=== PATIENT | male | born 1990 | race Caucasian/White ===

== ENCOUNTER → 2018-01-21 07:34 | Outpatient (CLI) | payer MEDICAID, SELFPAY ==
[2018-01-21 07:51] LABS: Hematocrit 43.7 % (40-54); Hemoglobin 15.5 g/dl (13.0-16.5); Mean Corp Hgb Conc 35.5 g/gl (32-36); Mean Corpuscular Hgb 30.2 pg (27.0-32.0); Mean Corpuscular Volume 85.2 fL (80-94); Platelet Count 184 K/mm3 (150-450); RBC Distribution Width CV 13.1 % (11.6-14.6); RBC Distribution Width SD 40.2 fl (35.1-43.9); Red Blood Count 5.13 M/mm3 (4.6-6.2); White Blood Count 5.2 K/mm3 (4.4-11.0)
[2018-01-21 07:53] LABS: Scan Indicated on CBC? Y/N NO
[2018-01-21 08:18] LABS: AST(SGOT) 21 U/L (15-37); Alanine Aminotransfer ALT/SGPT 25 U/L (16-61); Albumin, Serum 3.8 g/dL (3.2-5.0); Alkaline Phosphatase 101 U/L (45-117); Anion Gap 7 (5-15); BUN 31 mg/dL (7-18); BUN/Creat Ratio 14.6 RATIO (10-20); Chloride 109 mmol/L (98-107); Creatinine, Serum 2.12 mg/dL (0.70-1.30); EST Glomerular Filtration Rate 40 mL/min (>60); Est Glom Filt Rate - Afr Amer 48 mL/min (>60); Globulin 3.9 g/dL (2.2-4.2); Glucose 88 mg/dL (74-106); Potassium 4.3 mmol/L (3.5-5.1); Protein, Total 7.7 g/dL (6.4-8.2); Sodium Level 141 mmol/L (136-145)
== END ==
PROVIDERS: Family Provider Family Medicine; PCP Family Medicine; Visit Provider Psychiatry & Neurology Child & Adolescent Psychiatry
DX: F84.0 Autistic disorder (principal); F31.9 Bipolar disorder, unspecified
CPT/HCPCS: 36415; 80053; 85027

== ENCOUNTER → 2018-01-27 16:36 | Outpatient (CLI) | payer MEDICAID, SELFPAY ==
[2018-01-27 17:22] LABS: Hematocrit 44.4 % (40-54); Hemoglobin 15.2 g/dl (13.0-16.5); Mean Corp Hgb Conc 34.2 g/gl (32-36); Mean Corpuscular Hgb 29.5 pg (27.0-32.0); Mean Platelet Vol. 9.3 fl (6.2-12.0); Platelet Count 193 K/mm3 (150-450); RBC Distribution Width CV 12.8 % (11.6-14.6); RBC Distribution Width SD 40.2 fl (35.1-43.9); Red Blood Count 5.16 M/mm3 (4.6-6.2); White Blood Count 7.2 K/mm3 (4.4-11.0)
[2018-01-27 17:28] LABS: Scan Indicated on CBC? Y/N NO
[2018-01-27 17:36] LABS: Protein, Urine (Random) 62.4 mg/dL (<11.9); Protein:Creat Ratio 923 mg/g CRE (0-200)
[2018-01-27 17:51] LABS: Albumin, Serum 3.8 g/dL (3.2-5.0); BUN 27 mg/dL (7-18); BUN/Creat Ratio 13.7 RATIO (10-20); Calcium,Total 9.3 mg/dL (8.5-10.1); Chloride 105 mmol/L (98-107); Creatinine, Serum 1.97 mg/dL (0.70-1.30); EST Glomerular Filtration Rate 43 mL/min (>60); Est Glom Filt Rate - Afr Amer 53 mL/min (>60); Glucose 85 mg/dL (74-106); Phosphorus 3.7 mg/dL (2.5-4.9); Potassium 4.2 mmol/L (3.5-5.1); Sodium Level 139 mmol/L (136-145)
[2018-01-28 09:27] LABS: PTHIN 42.9 pg/mL (18.4-80.1)
[2018-01-28 09:36] LABS: Vitamin D,25 Hydroxy 44.3 ng/mL (29.95-100.01)
== END ==
PROVIDERS: Family Provider Family Medicine; PCP Family Medicine; Visit Provider Internal Medicine Nephrology
DX: N18.3 Chronic kidney disease, stage 3 (moderate) (principal)
CPT/HCPCS: 36415; 80069; 82306; 82570; 83970; 84156; 85027

== ENCOUNTER → 2018-02-26 14:57 | Outpatient (CLI) | payer MEDICAID, SELFPAY | LOC: MFPLAB 14:58 → LABSPEC 14:58 | PROVIDERS: Family Provider Family Medicine; PCP Family Medicine; Visit Provider Family Medicine | DX: R46.89 Other symptoms and signs involving appearance and behavior (principal) | CPT/HCPCS: 87077; 87086; 87088; 87186 ==

== ENCOUNTER → 2018-07-27 07:59 | Outpatient (CLI) | payer MEDICAID, SELFPAY ==
[2018-07-27 08:29] LABS: Hemoglobin 15.3 g/dl (13.0-16.5); Mean Corp Hgb Conc 34.8 g/gl (32-36); Mean Corpuscular Hgb 29.7 pg (27.0-32.0); Mean Corpuscular Volume 85.4 fL (80-94); Mean Platelet Vol. 8.7 fl (6.2-12.0); Platelet Count 210 K/mm3 (150-450); RBC Distribution Width CV 12.2 % (11.6-14.6); RBC Distribution Width SD 37.7 fl (35.1-43.9); Red Blood Count 5.15 M/mm3 (4.6-6.2); White Blood Count 6.3 K/mm3 (4.4-11.0)
[2018-07-27 08:34] LABS: Scan Indicated on CBC? Y/N NO
[2018-07-27 09:01] LABS: Albumin, Serum 3.3 g/dL (3.2-5.0); BUN 24 mg/dL (7-18); BUN/Creat Ratio 12.2 RATIO (10-20); Calcium,Total 9.1 mg/dL (8.5-10.1); Chloride 107 mmol/L (98-107); Creatinine, Serum 1.96 mg/dL (0.70-1.30); EST Glomerular Filtration Rate 44 mL/min (>60); Est Glom Filt Rate - Afr Amer 53 mL/min (>60); Glucose 102 mg/dL (74-106); Phosphorus 2.8 mg/dL (2.5-4.9); Potassium 4.4 mmol/L (3.5-5.1); Sodium Level 144 mmol/L (136-145)
[2018-07-27 09:16] LABS: Microalbumin:Creatinine Ratio 512.5 mg/g CRE (<30 mg/g CRE)
[2018-07-27 09:19] LABS: PTHIN 65.2 pg/mL (18.4-80.1)
[2018-07-27 09:20] LABS: Vitamin D,25 Hydroxy 60.4 ng/mL (29.95-100.01)
== END ==
PROVIDERS: Family Provider Family Medicine; PCP Family Medicine; Visit Provider Internal Medicine Nephrology
DX: N18.3 Chronic kidney disease, stage 3 (moderate) (principal)
CPT/HCPCS: 36415; 80069; 82043; 82306; 82570; 83970; 85027

== ENCOUNTER 2018-11-18 14:43 | Emergency (ER) | payer MEDICAID, SELFPAY ==
[2018-11-18 14:57] VITALS: BP 75/50; PULSE 110; RESP 18; TEMP 36.1; O2SAT 96; BMI 32.1
--- NOTE | 2018-11-18 15:40 | EKG12_ITS ---
Test Reason : HYPOTENSION Blood Pressure : / mmHG Vent. Rate : 096 BPM Atrial Rate : 096 BPM P-R Int : 166 ms QRS Dur : 096 ms QT Int : 342 ms P-R-T Axes : 055 069 044 degrees QTc Int : 432 ms Normal sinus rhythm Poor R wave progression Confirmed by SALMA ANDREWS, HARDIK ([id number]), purchasing expeditor ED METZ ([id number]) on 11/20/2018 2:29:16 PM Referred By: ЮЛИЯ Confirmed By:HARDIK MARSH MD
--- NOTE | 2018-11-18 15:41 | ED.VISSUMM ---
- ER Visit Summary Date of Service: 11/18/18 Chief Complaint: Vomiting History of Present Illness: The patient is a 28 M presenting with nausea and vomiting. He states that this started approximately 2 hours ago. 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 He states he had 3 episodes of vomiting. He had no blood in his emesis. He feels improved now. EMS was called. His blood pressure was low. He denies lightheadedness or dizziness. Denies abdominal pain. Denies chest pain or shortness of breath. Denies fever. Denies diarrhea. Denies other complaints. Physical Examination: Blood pressure 75/50, temperature 97, heart rate 110, respiratory rate 18, pulse ox 96% on room air. Alert no acute distress. HEENT exam dry mucous membranes. Neck is supple. Lungs are clear and equal bilaterally. Heart is regular and tachycardic Abdomen is soft nontender nondistended. No guarding or rebound Extremities are unremarkable. Skin is warm and dry. No focal neurologic deficit. Remainder of exam is unremarkable. Emergency Department Course and Treatment: Patient was given IV fluids, Zofran. CBC shows white count 13.9. Chemistries show glucose 119, BUN 38, creatinine 2.35. He has a history of chronic kidney disease. Urinalysis unremarkable. Lactic acid is normal. Chest x-ray showed no acute process. EKG is sinus rhythm rate of 96 unchanged from previous. Patient had one episode of vomiting in the ED. He was given a dose of Phenergan with improvement. He is now tolerating p.o. in the emergency department. His repeat blood pressure is 138/94. Patient and family are comfortable with discharge home. Advised return to ED if worsening complaints. Advised to follow-up with primary care physician. Disposition: Discharge home Impression: Nausea vomiting This note was generated with [employer] dictation software. It may contain incorrect words, spelling, and punctuation that were not noted in review of the chart prior to signing ED Disposition - Plan for ED Patient: Chief Complaint: Hypotension Instructions: ED Nausea Vomiting Prescriptions: Ondansetron [Zofran Odt] 4 mg PO Q8H PRN PRN #10 tablet PRN Reason: Nausea Referrals: Floyd Greer MD [Primary Care Provider] -
[2018-11-18 15:45] VITALS: BP 99/64; PULSE 107; RESP 22; O2SAT 97
--- NOTE | 2018-11-18 15:46 | RAD_ITS ---
STUDY: X-RAY CHEST REASON FOR EXAM: Male, 28 years old. Shortness of breath. Nausea and vomiting. TECHNIQUE: Single AP portable view of the chest. COMPARISON: Comparison is made with prior study dated November 11, 2015. FINDINGS: EKG electrodes are seen. The lungs are clear and expanded. There is no demonstrated pleural abnormality. Normal size heart. Normal mediastinum and peter. Normal visualized pulmonary arteries. Normal visualized aortic arch and descending thoracic aorta. There is a mild dextroscoliosis of the thoracic spine. Normal visualized ribs, clavicles, and shoulders. There is no demonstrated abnormality of the visualized soft tissue structures of the upper abdomen. RAD/Chest 1 View (Portable) IMPRESSION: Normal x-ray examination of the chest. Electronically Signed: Alen Figueroa MD at 15:59 EST Tel [phone], Service support ,
[2018-11-18 16:01] VITALS: BP 115/76; PULSE 103; RESP 18; O2SAT 96
[2018-11-18] MEDS: Ondansetron 4 MG/2 ML Vial IV (16:07)
[2018-11-18] MEDS: 0.9% Normal Saline 1,000 ML 1000 ML IV ×2 (16:07→16:48)
[2018-11-18 16:33] LABS: Absolute Lymphocyte Count 0.74 X10^3/ul (0.83-4.51); Absolute Neutrophil Count 12.7 X10^3/uL (2.0-7.7); Basophil# 0.02 X10^3/uL; Basophil% 0.1 % (0-1); Eosinophil# 0.09 X10^3/uL; Eosinophils% 0.6 % (0-5); Hematocrit 47.9 % (40-54); Hemoglobin 16.9 g/dl (13.0-16.5); Lymphocyte # 0.74 X10^3/ul (4.0); Lymphocyte % 5.3 % (19-41); Mean Corp Hgb Conc 35.3 g/gl (32-36); Mean Corpuscular Hgb 29.8 pg (27.0-32.0); Mean Corpuscular Volume 84.5 fL (80-94); Mean Platelet Vol. 8.9 fl (6.2-12.0); Monocyte# 0.32 X10^3/uL; Monocyte% 2.3 % (0-10); Neutrophil # 12.67 X10^3/uL (2.7-7.7); Neutrophil % 91.6 % (47-70); Platelet Count 159 K/mm3 (150-450); RBC Distribution Width CV 12.6 % (11.6-14.6); RBC Distribution Width SD 39.1 fl (35.1-43.9); Red Blood Count 5.67 M/mm3 (4.6-6.2); White Blood Count 13.9 K/mm3 (4.4-11.0)
[2018-11-18 16:38] LABS: AST(SGOT) 28 U/L (15-37); Alanine Aminotransfer ALT/SGPT 48 U/L (16-61); Albumin, Serum 3.8 g/dL (3.2-5.0); Alkaline Phosphatase 125 U/L (45-117); Anion Gap 10 (5-15); BUN 38 mg/dL (7-18); BUN/Creat Ratio 16.2 RATIO (10-20); Calcium,Total 8.9 mg/dL (8.5-10.1); Chloride 105 mmol/L (98-107); Creatinine, Serum 2.35 mg/dL (0.70-1.30); EST Glomerular Filtration Rate 35 mL/min (>60); Est Glom Filt Rate - Afr Amer 43 mL/min (>60); Estimated Creatinine Clearance 51.37 ml/min; Globulin 3.7 g/dL (2.2-4.2); Glucose 119 mg/dL (74-106); Protein, Total 7.5 g/dL (6.4-8.2); Sodium Level 139 mmol/L (136-145)
[2018-11-18 16:46] LABS: Lactic Acid 0.9 mmol/L (0.4-2.0)
[2018-11-18 16:47] LABS: POSITIVE COUNT NO; POSITIVE DIFFERENTIAL NO; POSITIVE MORPHOLOGY NO
[2018-11-18 17:49] VITALS: BP 138/94; PULSE 102; RESP 16; O2SAT 97
[2018-11-18 18:00] LABS: Bacteria 0 SEEN /hpf (None Seen); Mucous, Urine 0 SEEN /hpf (<or=2+); Red Blood Cells-Urine 0 SEEN /hpf (0-5); Squamous Epithelial Cells - UA 0 SEEN /hpf (0-5); White Blood Cells 0 SEEN /hpf (0-5)
[2018-11-18 18:09] LABS: Glucose, Dipstick Normal (Normal); Ketone-Dipstick Negative (Negative); Leukocyte Esterase-Dipstick Negative /ul (Negative); Nitrite-Dipstick Negative (Negative); Occult Blood-Urine Negative /ul (Negative); Protein-Dipstick 100 mg/dl (Negative); Specific Gravity, Urine 1.015 (1.002-1.030); Urine Bilirubin Dipstick Negative (Negative); Urine Clarity Clear (Clear); Urine Urobilinogen Normal (Normal)
[2018-11-18 18:25] LABS: Color, Urine YELLOW (Yellow)
[2018-11-18] MEDS: 0.9% Normal Saline 1,000 ML 999 ML IV (19:10)
[2018-11-18] MEDS: proMETHazine 25 MG/ML Syringe 6.25 MG IV (19:19)
--- NOTE | 2018-11-18 21:10 | ED.DEP ---
ED Disposition - Plan for ED Patient: Chief Complaint: Hypotension Instructions: ED Nausea Vomiting Prescriptions: Ondansetron [Zofran Odt] 4 mg PO Q8H PRN PRN #10 tablet PRN Reason: Nausea Referrals: Floyd Greer MD [Primary Care Provider] -
[2018-11-18 21:31] VITALS: BP 143/90; PULSE 108; RESP 20; O2SAT 97
== END 2018-11-18 21:32 | disposition home or self-care (01) ==
PROVIDERS: Emergency Provider Emergency Medicine; Family Provider Family Medicine; PCP Family Medicine
DX: R11.2 Nausea with vomiting, unspecified (principal); N18.9 Chronic kidney disease, unspecified; F84.0 Autistic disorder; Z79.899 Other long term (current) drug therapy
CPT/HCPCS: 71045; 80053; 81001; 83605; 85025; 93005; 96361; 96374; 96375; 99285; J2405

== ENCOUNTER 2019-01-08 07:53 | Outpatient (CLI) | payer MEDICAID, SELFPAY ==
[2019-01-08 08:14] LABS: Hematocrit 45.7 % (40-54); Hemoglobin 16.1 g/dl (13.0-16.5); Mean Corp Hgb Conc 35.2 g/gl (32-36); Mean Corpuscular Volume 85.1 fL (80-94); Mean Platelet Vol. 9.1 fl (6.2-12.0); Platelet Count 170 K/mm3 (150-450); RBC Distribution Width CV 13.2 % (11.6-14.6); RBC Distribution Width SD 40.6 fl (35.1-43.9); Red Blood Count 5.37 M/mm3 (4.6-6.2); White Blood Count 6.3 K/mm3 (4.4-11.0)
[2019-01-08 08:15] LABS: Scan Indicated on CBC? Y/N NO
[2019-01-08 08:59] LABS: AST(SGOT) 40 U/L (15-37); Alanine Aminotransfer ALT/SGPT 60 U/L (16-61); Albumin, Serum 3.6 g/dL (3.2-5.0); Alkaline Phosphatase 138 U/L (45-117); Anion Gap 9 (5-15); BUN 36 mg/dL (7-18); BUN/Creat Ratio 18.2 RATIO (10-20); Calcium,Total 8.8 mg/dL (8.5-10.1); Chloride 109 mmol/L (98-107); Cholesterol 139 mg/dL (200); Creatinine, Serum 1.98 mg/dL (0.70-1.30); EST Glomerular Filtration Rate 43 mL/min (>60); Est Glom Filt Rate - Afr Amer 52 mL/min (>60); Globulin 3.5 g/dL (2.2-4.2); Glucose 108 mg/dL (74-106); High Density Lipoprotein 43 mg/dL; Potassium 4.4 mmol/L (3.5-5.1); Protein, Total 7.1 g/dL (6.4-8.2); Sodium Level 141 mmol/L (136-145); Thyroid Stim Hormone (TSH) 2.08 uIU/mL (0.358-3.74); Triglycerides 178 mg/dL; Very Low Density Lipoprotein 36 mg/dL (5-40)
== END 2019-01-08 19:00 ==
PROVIDERS: Family Provider Family Medicine; PCP Family Medicine; Referring Provider Psychiatry & Neurology Child & Adolescent Psychiatry; Visit Provider Psychiatry & Neurology Child & Adolescent Psychiatry
DX: F84.0 Autistic disorder (principal); Z51.81 Encounter for therapeutic drug level monitoring
CPT/HCPCS: 36415; 80053; 80061; 84443; 85027

== ENCOUNTER → 2019-07-08 | Outpatient (CLI) | payer MEDICAID, SELFPAY ==
[2019-07-08 09:58] LABS: Hematocrit 44.9 % (40-54); Hemoglobin 15.4 g/dL (13.0-16.5); Mean Corp Hgb Conc 34.3 g/dL (32-36); Mean Corpuscular Hgb 29.7 pg (27.0-32.0); Mean Corpuscular Volume 86.5 fL (80-94); Mean Platelet Vol. 8.9 fl (6.2-12.0); Platelet Count 173 K/mm3 (150-450); RBC Distribution Width CV 12.8 % (11.6-14.6); RBC Distribution Width SD 39.8 fl (35.1-43.9); Red Blood Count 5.19 M/mm3 (4.6-6.2); White Blood Count 5.7 K/mm3 (4.4-11.0)
[2019-07-08 10:12] LABS: Albumin, Serum 3.6 g/dL (3.2-5.0); BUN 35 mg/dL (7-18); BUN/Creat Ratio 18.1 RATIO (10-20); Calcium,Total 9.5 mg/dL (8.5-10.1); Chloride 109 mmol/L (98-107); Creatinine, Serum 1.93 mg/dL (0.70-1.30); EST Glomerular Filtration Rate 44 mL/min (>60); Est Glom Filt Rate - Afr Amer 53 mL/min (>60); Glucose 96 mg/dL (74-106); Phosphorus 2.9 mg/dL (2.5-4.9); Potassium 4.5 mmol/L (3.5-5.1); Sodium Level 142 mmol/L (136-145)
[2019-07-08 10:24] LABS: PTHIN 43.3 pg/mL (18.4-80.1); Vitamin D,25 Hydroxy 37.7 ng/mL (29.95-100.01)
[2019-07-08 10:30] LABS: Protein, Urine (Random) 81.4 mg/dL (<11.9); Protein:Creat Ratio 1148 mg/g CRE (0-200)
== END | disposition home or self-care (01) ==
PROVIDERS: Family Provider Family Medicine; PCP Family Medicine; Referring Provider Internal Medicine Nephrology; Visit Provider Internal Medicine Nephrology
DX: N18.3 Chronic kidney disease, stage 3 (moderate) (principal); R80.9 Proteinuria, unspecified; N25.81 Secondary hyperparathyroidism of renal origin
CPT/HCPCS: 36415; 80069; 82306; 82570; 83970; 84156; 85027

== ENCOUNTER → 2019-10-13 11:49 | Outpatient (CLI) | payer MEDICAID, SELFPAY ==
[2019-10-13 14:37] LABS: Hemoglobin A1c 5.4 % (4.2-6.3)
== END ==
PROVIDERS: Family Provider Family Medicine; PCP Family Medicine; Referring Provider Family Medicine; Visit Provider Family Medicine
DX: R73.09 Other abnormal glucose (principal)
CPT/HCPCS: 36415; 83036

== ENCOUNTER → 2019-12-13 07:53 | Outpatient (CLI) | payer MEDICAID, SELFPAY ==
[2019-12-13 09:10] LABS: Hematocrit 45.8 % (40-54); Hemoglobin 15.6 g/dL (13.0-16.5); Mean Corp Hgb Conc 34.1 g/dL (32-36); Mean Corpuscular Hgb 29.8 pg (27.0-32.0); Mean Corpuscular Volume 87.6 fL (80-94); Mean Platelet Vol. 9.1 fl (6.2-12.0); Platelet Count 170 K/mm3 (150-450); RBC Distribution Width CV 12.7 % (11.6-14.6); RBC Distribution Width SD 40.7 fl (35.1-43.9); Red Blood Count 5.23 M/mm3 (4.6-6.2); White Blood Count 6.1 K/mm3 (4.4-11.0)
[2019-12-13 09:57] LABS: ALB/GLOB Ratio 0.9 RATIO (0.9-2.4); AST(SGOT) 31 U/L (15-37); Alanine Aminotransfer ALT/SGPT 46 U/L (16-61); Albumin, Serum 3.4 g/dL (3.2-5.0); Alkaline Phosphatase 136 U/L (45-117); Anion Gap 5 (5-15); BUN 31 mg/dL (7-18); BUN/Creat Ratio 15.1 RATIO (10-20); Calcium,Total 8.9 mg/dL (8.5-10.1); Chloride 111 mmol/L (98-107); Cholesterol 137 mg/dL (200); Creatinine, Serum 2.05 mg/dL (0.70-1.30); EST Glomerular Filtration Rate 41 mL/min (>60); Est Glom Filt Rate - Afr Amer 50 mL/min (>60); Globulin 3.6 g/dL (2.2-4.2); Glucose 115 mg/dL (74-106); High Density Lipoprotein 39 mg/dL; Potassium 3.9 mmol/L (3.5-5.1); Sodium Level 139 mmol/L (136-145); Thyroid Stim Hormone (TSH) 2.59 uIU/mL (0.358-3.74); Triglycerides 202 mg/dL; Very Low Density Lipoprotein 40 mg/dL (5-40)
[2019-12-16 09:14] LABS: Lamotrigine (Lamictal) Level 2.6 ug/mL (2.0-20.0)
== END ==
PROVIDERS: PCP Family Medicine; Referring Provider Psychiatry & Neurology Child & Adolescent Psychiatry; Visit Provider Psychiatry & Neurology Child & Adolescent Psychiatry
DX: Z79.899 Other long term (current) drug therapy (principal)
CPT/HCPCS: 36415; 80053; 80061; 82542; 84443; 85027

== ENCOUNTER → 2020-01-06 08:44 | Outpatient (CLI) | payer MEDICAID, SELFPAY ==
[2020-01-06 10:05] LABS: Hemoglobin 15.4 g/dL (13.0-16.5); Mean Corp Hgb Conc 34.2 g/dL (32-36); Mean Corpuscular Hgb 29.9 pg (27.0-32.0); Mean Corpuscular Volume 87.4 fL (80-94); Mean Platelet Vol. 9.2 fl (6.2-12.0); Platelet Count 184 K/mm3 (150-450); RBC Distribution Width CV 12.5 % (11.6-14.6); RBC Distribution Width SD 39.9 fl (35.1-43.9); Red Blood Count 5.15 M/mm3 (4.6-6.2); White Blood Count 5.8 K/mm3 (4.4-11.0)
[2020-01-06 10:17] LABS: Albumin, Serum 3.6 g/dL (3.2-5.0); BUN 38 mg/dL (7-18); BUN/Creat Ratio 17.3 RATIO (10-20); Calcium,Total 9.6 mg/dL (8.5-10.1); Chloride 109 mmol/L (98-107); EST Glomerular Filtration Rate 38 mL/min (>60); Est Glom Filt Rate - Afr Amer 46 mL/min (>60); Glucose 141 mg/dL (74-106); Phosphorus 2.6 mg/dL (2.5-4.9); Potassium 3.9 mmol/L (3.5-5.1); Sodium Level 139 mmol/L (136-145)
[2020-01-06 10:18] LABS: Protein, Urine (Random) 86.3 mg/dL (<11.9); Protein:Creat Ratio 894 mg/g CRE (0-200)
[2020-01-06 10:35] LABS: Vitamin D,25 Hydroxy 51.8 ng/mL (29.95-100.01)
== END ==
PROVIDERS: PCP Family Medicine; Referring Provider Family Medicine; Visit Provider Internal Medicine Nephrology
DX: N18.3 Chronic kidney disease, stage 3 (moderate) (principal); N25.81 Secondary hyperparathyroidism of renal origin; R80.9 Proteinuria, unspecified; D63.1 Anemia in chronic kidney disease
CPT/HCPCS: 36415; 80069; 82306; 82570; 84156; 85027

== ENCOUNTER → 2020-05-22 07:59 | Outpatient (CLI) | payer MEDICAID, SELFPAY ==
[2020-05-22 08:46] LABS: Hematocrit 45.8 % (40-54); Hemoglobin 15.2 g/dL (13.0-16.5); Mean Corp Hgb Conc 33.2 g/dL (32-36); Mean Corpuscular Hgb 29.3 pg (27.0-32.0); Mean Corpuscular Volume 88.4 fL (80-94); Mean Platelet Vol. 9.3 fl (6.2-12.0); Platelet Count 195 K/mm3 (150-450); RBC Distribution Width CV 12.5 % (11.6-14.6); RBC Distribution Width SD 40.6 fl (35.1-43.9); Red Blood Count 5.18 M/mm3 (4.6-6.2); White Blood Count 6.5 K/mm3 (4.4-11.0)
[2020-05-22 09:28] LABS: AST(SGOT) 28 U/L (15-37); Alanine Aminotransfer ALT/SGPT 39 U/L (16-61); Albumin, Serum 3.7 g/dL (3.2-5.0); Alkaline Phosphatase 137 U/L (45-117); Anion Gap 8 (5-15); BUN 28 mg/dL (7-18); BUN/Creat Ratio 13.1 RATIO (10-20); Chloride 109 mmol/L (98-107); Cholesterol 141 mg/dL (200); Creatinine, Serum 2.14 mg/dL (0.70-1.30); EST Glomerular Filtration Rate 39 mL/min (>60); Est Glom Filt Rate - Afr Amer 47 mL/min (>60); Globulin 3.8 g/dL (2.2-4.2); Glucose 104 mg/dL (74-106); High Density Lipoprotein 38 mg/dL; Potassium 4.3 mmol/L (3.5-5.1); Protein, Total 7.5 g/dL (6.4-8.2); Sodium Level 140 mmol/L (136-145); Thyroid Stim Hormone (TSH) 1.88 uIU/mL (0.358-3.74); Triglycerides 204 mg/dL; Very Low Density Lipoprotein 41 mg/dL (5-40)
[2020-05-25 18:20] LABS: Lamotrigine (Lamictal) Level 3.4 ug/mL (2.0-20.0)
== END ==
PROVIDERS: PCP Family Medicine; Referring Provider Psychiatry & Neurology Child & Adolescent Psychiatry; Visit Provider Psychiatry & Neurology Child & Adolescent Psychiatry
DX: Z79.899 Other long term (current) drug therapy (principal)
CPT/HCPCS: 36415; 80053; 80061; 82542; 84443; 85027

== ENCOUNTER → 2020-09-07 08:18 | Outpatient (CLI) | payer MEDICAID, SELFPAY ==
[2020-09-07 10:35] LABS: Protein, Urine (Random) 53.5 mg/dL (<11.9); Protein:Creat Ratio 616 mg/g CRE (0-200)
[2020-09-07 10:41] LABS: Anion Gap 7 (5-15); BUN 29 mg/dL (7-18); BUN/Creat Ratio 12.7 RATIO (10-20); Calcium,Total 9.8 mg/dL (8.5-10.1); Chloride 108 mmol/L (98-107); Creatinine, Serum 2.28 mg/dL (0.70-1.30); EST Glomerular Filtration Rate 36 mL/min (>60); Est Glom Filt Rate - Afr Amer 44 mL/min (>60); Glucose 95 mg/dL (74-106); Potassium 4.2 mmol/L (3.5-5.1); Sodium Level 139 mmol/L (136-145)
== END ==
PROVIDERS: PCP Family Medicine; Referring Provider Internal Medicine Nephrology; Visit Provider Internal Medicine Nephrology
DX: N18.30 Chronic kidney disease, stage 3 unspecified (principal)
CPT/HCPCS: 36415; 80048; 82570; 84156

== ENCOUNTER 2021-03-14 16:34 | Emergency (ER) | payer MEDICAID, SELFPAY ==
[2021-03-14 16:34] VITALS: BP 141/89; PULSE 107; RESP 16; TEMP 36.2; O2SAT 95; BMI 34.7
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
[2021-03-14 17:17] LABS: Absolute Lymphocyte Count 0.74 X10^3/uL (0.83-4.51); Absolute Neutrophil Count 9.8 X10^3/uL (2.0-7.7); Basophil# 0.01 X10^3/uL; Basophil% 0.1 % (0-1); Hematocrit 43.9 % (40-54); Lymphocyte # 0.74 X10^3/ul (0.83-4.51); Lymphocyte % 6.6 % (19-41); Mean Corp Hgb Conc 34.2 g/dL (32-36); Mean Corpuscular Hgb 29.5 pg (27.0-32.0); Mean Corpuscular Volume 86.2 fL (80-94); Mean Platelet Vol. 9.2 fl (6.2-12.0); Monocyte% 4.5 % (0-10); NRBC Flagged by Analyzer 0 % (0-5); Neutrophil # 9.81 X10^3/uL (2.7-7.7); Neutrophil % 88.2 % (47-70); Platelet Count 212 K/mm3 (150-450); RBC Distribution Width CV 12.7 % (11.6-14.6); RBC Distribution Width SD 39.8 fl (35.1-43.9); Red Blood Count 5.09 M/mm3 (4.6-6.2); White Blood Count 11.1 K/mm3 (4.4-11.0)
[2021-03-14 17:32] LABS: Anion Gap 7 (5-15); BUN 46 mg/dL (7-18); BUN/Creat Ratio 21.7 RATIO (10-20); Calcium,Total 9.1 mg/dL (8.5-10.1); Chloride 109 mmol/L (98-107); Creatinine, Serum 2.12 mg/dL (0.70-1.30); EST Glomerular Filtration Rate 39 mL/min (>60); Est Glom Filt Rate - Afr Amer 47 mL/min (>60); Estimated Creatinine Clearance 59.24 ml/min; Glucose 140 mg/dL (74-106); Potassium 4.4 mmol/L (3.5-5.1); Sodium Level 138 mmol/L (136-145)
[2021-03-14 18:38] VITALS: BP 115/72; PULSE 87; RESP 22; O2SAT 96
[2021-03-14 19:42] LABS: Amphetamine Urine VISTA NEGATIVE (<1000 ng/mL); Barbiturate Urine VISTA NEGATIVE (< 200 ng/mL); Benzodiazepine Urine VISTA NEGATIVE (< 200 ng/mL); Cocaine Urine VISTA NEGATIVE (< 300 ng/mL); Ecstacy Urine VISTA POSITIVE (< 500 ng/mL); Methadone Urine VISTA NEGATIVE (< 300 ng/mL); PCP Urine VISTA NEGATIVE (< 25 ng/mL); THC Urine VISTA NEGATIVE (< 50 ng/mL); Vista UDS pH Range 6
--- NOTE | 2021-03-14 19:52 | ED.RN ---
[facility] PAG[facility], VICKI IS CREATIVE INTERN
[2021-03-14 22:00] VITALS: BP 120/77; PULSE 85; RESP 28; O2SAT 97
[2021-03-15] VITALS (12 sets, daily range): BP systolic 145–159; BP diastolic 80–88; PULSE 71–88; RESP 16–24; O2SAT 98–99
[2021-03-15] MEDS: RisperiDONE 1 MG Tablet PO (06:12)
--- NOTE | 2021-03-15 08:57 | ED.RN ---
Waiting to hear from family regarding plan for [facility] not heard from [facility]
[2021-03-15] MEDS: Oxybutynin 5 MG Tablet PO (09:23)
[2021-03-15] MEDS: fluvoxaMINE Maleate 50 MG Tablet 100 MG PO (09:23)
[2021-03-15] MEDS: buPROPion 75 MG Tablet PO (09:23)
[2021-03-15] MEDS: Cholecalciferol (VIT D3) 25 MCG TABLET (1,000 UNITS) 50 MCG PO (09:23)
--- NOTE | 2021-03-15 09:33 | NURSING ---
MANAGER MOLECULAR ON PHONE TRYING TO GET ON VIRTUAL APPOINTMENT W/ PT'S PSYCHIATRIST.
--- NOTE | 2021-03-15 12:44 | ED.RN ---
This rn called and talked with crises worker. worker states that guardianship papers were to be brought in to the ed today by 929. made crises aware that no paperwork has been received. Alexei making calls
--- NOTE | 2021-03-15 12:53 | ED.RN ---
This RN talks with Rocío from [facility]. Pt to have a a ua completed. If results are normal pt will be transferred home with increases safety measures, and medications.
[2021-03-15 13:10] LABS: Bacteria 0 SEEN /hpf (None Seen); Mucous, Urine 0 SEEN /hpf (<or=2+); Red Blood Cells-Urine 0 SEEN /hpf (0-5); Squamous Epithelial Cells - UA 0 SEEN /hpf (0-5)
[2021-03-15 13:14] LABS: Color, Urine Yellow (Yellow); Glucose, Dipstick Normal (Normal); Ketone-Dipstick Negative (Negative); Leukocyte Esterase-Dipstick 100 /ul (Negative); Nitrite-Dipstick Negative (Negative); Occult Blood-Urine 10 /ul (Negative); Protein-Dipstick 100 mg/dl (Negative); Specific Gravity, Urine 1.015 (1.002-1.030); Urine Bilirubin Dipstick Negative (Negative); Urine Clarity Sl. Cloudy (Clear); Urine Urobilinogen Normal (Normal)
[2021-03-15 13:21] LABS: White Blood Cells 5-10 SEEN /hpf (0-5)
--- NOTE | 2021-03-15 13:21 | ED.RN ---
Maribel Brito from [facility] [employer] is contact lens polisher for plan
--- NOTE | 2021-03-15 14:51 | ED.RN ---
Talked with Rocío from [facility] , Pt to be discharged home, director of [facility] developmental disabilities aware and has made a plan for pt return
== END 2021-03-15 14:52 | disposition home or self-care (01) ==
PROVIDERS: Emergency Medicine; Emergency Provider Emergency Medicine; PCP Family Medicine
DX: R45.851 Suicidal ideations (principal); F84.0 Autistic disorder; E66.01 Morbid (severe) obesity due to excess calories; Z68.34 Body mass index [BMI] 34.0-34.9, adult; Z79.899 Other long term (current) drug therapy
CPT/HCPCS: 36415; 80048; 80307; 81001; 82077; 85025; 99284

== ENCOUNTER → 2021-03-16 08:48 | Outpatient (CLI) | payer MEDICAID, SELFPAY ==
[2021-03-14 16:34] VITALS: BMI 34.7
[2021-03-16 11:13] LABS: Hematocrit 47.8 % (40-54); Hemoglobin 16.3 g/dL (13.0-16.5); Mean Corp Hgb Conc 34.1 g/dL (32-36); Mean Corpuscular Hgb 29.6 pg (27.0-32.0); Mean Corpuscular Volume 86.8 fL (80-94); Mean Platelet Vol. 9.2 fl (6.2-12.0); Platelet Count 210 K/mm3 (150-450); RBC Distribution Width CV 12.5 % (11.6-14.6); RBC Distribution Width SD 39.5 fl (35.1-43.9); Red Blood Count 5.51 M/mm3 (4.6-6.2); White Blood Count 10.2 K/mm3 (4.4-11.0)
[2021-03-16 11:29] LABS: Protein, Urine (Random) 132.1 mg/dL (<11.9); Protein:Creat Ratio 2039 mg/g CRE (0-200)
[2021-03-16 11:50] LABS: Albumin, Serum 3.7 g/dL (3.2-5.0); BUN 49 mg/dL (7-18); BUN/Creat Ratio 25.7 RATIO (10-20); Calcium,Total 8.7 mg/dL (8.5-10.1); Chloride 109 mmol/L (98-107); Creatinine, Serum 1.91 mg/dL (0.70-1.30); EST Glomerular Filtration Rate 44 mL/min (>60); Est Glom Filt Rate - Afr Amer 53 mL/min (>60); Glucose 126 mg/dL (74-106); Phosphorus 2.4 mg/dL (2.5-4.9); Potassium 4.1 mmol/L (3.5-5.1); Sodium Level 137 mmol/L (136-145)
[2021-03-16 11:52] LABS: Vitamin D,25 Hydroxy 55.5 ng/mL
== END ==
PROVIDERS: PCP Family Medicine; Referring Provider Psychiatry & Neurology Child & Adolescent Psychiatry; Visit Provider Internal Medicine Nephrology
DX: N18.32 Chronic kidney disease, stage 3b (principal); R80.9 Proteinuria, unspecified; N25.81 Secondary hyperparathyroidism of renal origin; D63.1 Anemia in chronic kidney disease
CPT/HCPCS: 36415; 80069; 82306; 82570; 83970; 84156; 85027

== ENCOUNTER → 2021-03-26 07:59 | Outpatient (CLI) | payer MEDICAID, SELFPAY ==
[2021-03-14 16:34] VITALS: BMI 34.7
[2021-03-26 09:19] LABS: Hemoglobin A1c 5.1 % (3.8-5.6)
[2021-03-26 09:39] LABS: ALB/GLOB Ratio 1.1 RATIO (0.9-2.4); AST(SGOT) 18 U/L (15-37); Alanine Aminotransfer ALT/SGPT 27 U/L (16-61); Albumin, Serum 3.6 g/dL (3.2-5.0); Alkaline Phosphatase 154 U/L (45-117); Anion Gap 8 (5-15); BUN 40 mg/dL (7-18); BUN/Creat Ratio 19.9 RATIO (10-20); Calcium,Total 9.3 mg/dL (8.5-10.1); Chloride 109 mmol/L (98-107); Cholesterol 135 mg/dL (200); Creatinine, Serum 2.01 mg/dL (0.70-1.30); EST Glomerular Filtration Rate 42 mL/min (>60); Est Glom Filt Rate - Afr Amer 50 mL/min (>60); Globulin 3.4 g/dL (2.2-4.2); Glucose 94 mg/dL (74-106); High Density Lipoprotein 67 mg/dL; Sodium Level 139 mmol/L (136-145); Triglycerides 50 mg/dL; Very Low Density Lipoprotein 10 mg/dL (5-40)
[2021-03-28 16:45] LABS: Lamotrigine (Lamictal) Level 4.3 ug/mL (2.0-20.0)
== END ==
PROVIDERS: PCP Family Medicine; Referring Provider Psychiatry & Neurology Child & Adolescent Psychiatry; Visit Provider Psychiatry & Neurology Child & Adolescent Psychiatry
DX: Z79.899 Other long term (current) drug therapy (principal)
CPT/HCPCS: 36415; 80053; 80061; 82542; 83036

== ENCOUNTER → 2021-03-29 09:14 | Outpatient (CLI) | payer MEDICAID, SELFPAY ==
[2021-03-14 16:34] VITALS: BMI 34.7
--- NOTE | 2021-03-29 09:21 | EKG12_ITS ---
Test Reason : Blood Pressure : / mmHG Vent. Rate : 067 BPM Atrial Rate : 067 BPM P-R Int : 140 ms QRS Dur : 092 ms QT Int : 366 ms P-R-T Axes : 037 080 055 degrees QTc Int : 386 ms Normal sinus rhythm Normal ECG Confirmed by SALMA ANDREWS, HARDIK ([id number]), food expeditor MANDI BEAULIEU ([id number]) on 03/30/2021 10:40:16 AM Referred By: Tegan Jarrell Confirmed By:HARDIK MARSH MD
== END ==
PROVIDERS: PCP Family Medicine; Referring Provider Psychiatry & Neurology Child & Adolescent Psychiatry; Visit Provider Psychiatry & Neurology Child & Adolescent Psychiatry
DX: Z79.899 Other long term (current) drug therapy (principal)
CPT/HCPCS: 93005

== ENCOUNTER → 2021-06-19 17:04 | Outpatient (CLI) | payer MEDICARE, MEDICAID, SELFPAY ==
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
== END ==
PROVIDERS: PCP Family Medicine; Referring Provider Family Medicine; Visit Provider Family Medicine
DX: S69.92XA Unspecified injury of left wrist, hand and finger(s), initial encounter (principal)
CPT/HCPCS: 73130

== ENCOUNTER → 2021-09-18 15:27 | Outpatient (CLI) | payer MEDICARE, MEDICAID, SELFPAY ==
[2021-09-18 16:08] LABS: Hematocrit 40.5 % (40-54); Hemoglobin 14.1 g/dL (13.0-16.5); Mean Corp Hgb Conc 34.8 g/dL (32-36); Mean Corpuscular Volume 80.4 fL (80-94); Mean Platelet Vol. 8.8 fl (6.2-12.0); Platelet Count 191 K/mm3 (150-450); RBC Distribution Width CV 11.6 % (11.6-14.6); RBC Distribution Width SD 33.9 fl (35.1-43.9); Red Blood Count 5.04 M/mm3 (4.6-6.2); White Blood Count 5.9 K/mm3 (4.4-11.0)
[2021-09-18 16:34] LABS: Protein, Urine (Random) 39.6 mg/dL (<11.9); Protein:Creat Ratio 433 mg/g CRE (0-200)
[2021-09-18 16:35] LABS: Anion Gap 8 (5-15); BUN 32 mg/dL (7-18); BUN/Creat Ratio 13.1 RATIO (10-20); Calcium,Total 9.5 mg/dL (8.5-10.1); Chloride 106 mmol/L (98-107); Creatinine, Serum 2.44 mg/dL (0.70-1.30); EST Glomerular Filtration Rate 33 mL/min (>60); Est Glom Filt Rate - Afr Amer 40 mL/min (>60); Glucose 104 mg/dL (74-106); Sodium Level 140 mmol/L (136-145)
[2021-09-18 16:37] LABS: Vitamin D,25 Hydroxy 35.5 ng/mL
[2021-09-19 08:24] LABS: PTHIN 37.2 pg/mL (18.4-80.1)
== END ==
PROVIDERS: PCP Family Medicine; Visit Provider Internal Medicine Nephrology
DX: N18.32 Chronic kidney disease, stage 3b (principal); R80.9 Proteinuria, unspecified
CPT/HCPCS: 36415; 80048; 82306; 82570; 83970; 84156; 85027

== ENCOUNTER → 2021-11-01 08:44 | Outpatient (CLI) | payer MEDICARE, MEDICAID, SELFPAY ==
[2021-11-01 10:12] LABS: Absolute Lymphocyte Count 1.41 X10^3/uL (0.83-4.51); Absolute Neutrophil Count 2.9 X10^3/uL (2.0-7.7); Basophil# 0.06 X10^3/uL; Basophil% 1.1 % (0-1); Eosinophil# 0.45 X10^3/uL; Eosinophils% 8.4 % (0-5); Hematocrit 42.9 % (40-54); Hemoglobin 14.3 g/dL (13.0-16.5); Lymphocyte # 1.41 X10^3/ul (0.83-4.51); Lymphocyte % 26.2 % (19-41); Mean Corp Hgb Conc 33.3 g/dL (32-36); Mean Corpuscular Hgb 27.1 pg (27.0-32.0); Mean Corpuscular Volume 81.4 fL (80-94); Monocyte# 0.55 X10^3/uL; Monocyte% 10.2 % (0-10); NRBC Flagged by Analyzer 0 % (0-5); Neutrophil # 2.88 X10^3/uL (2.7-7.7); Neutrophil % 53.5 % (47-70); Platelet Count 183 K/mm3 (150-450); RBC Distribution Width CV 12.8 % (11.6-14.6); RBC Distribution Width SD 37.3 fl (35.1-43.9); Red Blood Count 5.27 M/mm3 (4.6-6.2); White Blood Count 5.4 K/mm3 (4.4-11.0)
[2021-11-01 10:38] LABS: ALB/GLOB Ratio 0.9 RATIO (0.9-2.4); AST(SGOT) 42 U/L (15-37); Alanine Aminotransfer ALT/SGPT 61 U/L (16-61); Albumin, Serum 3.3 g/dL (3.2-5.0); Alkaline Phosphatase 115 U/L (45-117); Anion Gap 4 (5-15); BUN 32 mg/dL (7-18); BUN/Creat Ratio 15.3 RATIO (10-20); Calcium,Total 9.3 mg/dL (8.5-10.1); Chloride 111 mmol/L (98-107); Cholesterol 154 mg/dL (200); Creatinine, Serum 2.09 mg/dL (0.70-1.30); EST Glomerular Filtration Rate 40 mL/min (>60); Est Glom Filt Rate - Afr Amer 48 mL/min (>60); Globulin 3.6 g/dL (2.2-4.2); Glucose 120 mg/dL (74-106); High Density Lipoprotein 43 mg/dL; Potassium 4.8 mmol/L (3.5-5.1); Protein, Total 6.9 g/dL (6.4-8.2); Sodium Level 140 mmol/L (136-145); Triglycerides 220 mg/dL; Very Low Density Lipoprotein 44 mg/dL (5-40)
== END ==
PROVIDERS: PCP Family Medicine; Referring Provider Family Medicine; Visit Provider Family Medicine
DX: I10 Essential (primary) hypertension (principal); E66.9 Obesity, unspecified
CPT/HCPCS: 36415; 80053; 80061; 85025

== ENCOUNTER 2021-11-21 18:00 | Outpatient (CLI) | payer MEDICARE, MEDICAID, SELFPAY | END 2021-11-21 23:59 | disposition short-term general hospital (02) | PROVIDERS: Visit Provider Family Medicine | DX: Z20.822 Contact with and (suspected) exposure to COVID-19 (principal) | CPT/HCPCS: 87635; U0003; U0005 ==

== ENCOUNTER 2022-01-02 19:35 | Emergency (ER) | payer MEDICARE, MEDICAID, SELFPAY ==
[2022-01-02 19:38] VITALS: BP 170/97; PULSE 100; RESP 18; TEMP 35.6; O2SAT 96; BMI 41.8
[2022-01-02 20:01] LABS: Color, Urine Yellow (Yellow); Glucose, Dipstick Normal (Normal); Ketone-Dipstick Negative (Negative); Leukocyte Esterase-Dipstick 500 /ul (Negative); Mucous, Urine 0 SEEN /hpf (<or=2+); Nitrite-Dipstick Negative (Negative); Occult Blood-Urine 10 /ul (Negative); Protein-Dipstick 100 mg/dl (Negative); Squamous Epithelial Cells - UA 0 SEEN /hpf (0-5); Urine Bilirubin Dipstick Negative (Negative); Urine Clarity Clear (Clear); Urine Urobilinogen Normal (Normal)
[2022-01-02 20:25] LABS: White Blood Cells 50-100 SEEN /hpf (0-5)
[2022-01-02 20:26] LABS: Bacteria 1+ /hpf (None Seen); Red Blood Cells-Urine 0-5 SEEN /hpf (0-5)
[2022-01-02 21:19] VITALS: BP 158/99; PULSE 111; PULSE 95; RESP 17; RESP 22; TEMP 36.6; O2SAT 95
[2022-01-02] MEDS: Cephalexin 250 MG Capsule 500 MG PO (21:50)
--- NOTE | 2022-01-02 22:44 | EX.ED.DYSGE1 ---
HPI History of Present Illness Chief Complaint: Abn Labs Narrative Narrative: 31-year-old male presenting for evaluation because he has had behavioral issues today. Patient has a history of autism. Patient reportedly went to the urgent care where they told him he had a urinary tract infection and that his kidney function was 3 times the limit of his normal renal function. Patient states that he has no urinary symptoms. He has not had fever, chills. He denies flank pain. He states has been able to eat and drink normally. His caregiver is at the bedside and agrees with these statements. [facility] Medical History Autism Morbid obesity with BMI of 40.0-44.9, adult mrdd Home Medications acetaminophen 1,000 mg PO Q4H PRN 04/28/17 [History Last Taken Unknown] ammonium lactate [Amlactin] 57 g TP BID 04/28/17 [History Last Taken Unknown] bupropion HCl 75 mg PO BID 04/28/17 [History Last Taken Unknown] cholecalciferol (vitamin D3) [Vitamin D3] 2,000 unit PO DAILY 04/28/17 [History Last Taken Unknown] fluticasone propionate [Flovent Diskus] 50 mcg INHALATION DAILY 04/28/17 [History Last Taken Unknown] fluvoxamine 100 mg PO BID 04/28/17 [History Last Taken Unknown] montelukast [Singulair] 10 mg PO QHS 04/28/17 [History Last Taken Unknown] oxybutynin chloride 5 mg PO BID 04/28/17 [History Last Taken Unknown] risperidone 1 mg PO TID 04/28/17 [History Last Taken Unknown] cephalexin 500 mg PO Q12 #14 cap 01/02/22 [Rx Last Taken Unknown] Allergy/AdvReac Type Severity Reaction Status Date / Time No Known Allergies Allergy Verified 01/02/22 19:40 Social History Smoking Status: Never smoker ROS ROS ED Constitutional Constitutional ED: Denies chills or fever(s) Eyes Eyes: Denies blurry vision or diplopia ENT ENT ED: Denies rhinorrhea or sore throat Cardiovascular Cardiovascular: Denies palpitations or racing heartbeat Respiratory/Chest Respiratory/Chest: Denies cough or dyspnea Gastrointestinal Gastrointestinal: Denies abdominal pain or nausea Genitourinary Genitourinary ED: Denies dysuria, hematuria or urinary frequency Musculoskeletal Musculoskeletal: Denies arthralgias or myalgias Integumentary Denies rash Neurologic Neurologic: Denies headache(s) or weakness EXAM Physical Exam Const Vital Signs: 01/02/22 19:38 01/02/22 21:19 Temperature 96.0 F L 97.8 F Temperature Source Temporal Temporal Pulse Rate 100 95 Respiratory Rate 18 17 Blood Pressure 170/97 H 158/99 H Blood Pressure Mean 121 118 Pulse Ox 96 95 Oxygen Delivery Method Room Air Room Air Positive well nourished General Appearance ED: NAD; Negative for pallor HEENT Reports moist mucous membranes Negative for trauma Eyes PERRL and EOMs intact bilaterally Resp normal respiratory effort and clear to auscultation bilaterally Cardio regular rate and regular rhythm GI normal to inspection, nondistended, normoactive bowel sounds Neuro oriented x3 Sensorium / Orientation: alert Psych mental status grossly normal Skin General Skin Exam: Negative for jaundice or pallor MDM MDM MDM Narrative Medical decision making narrative: Urinalysis today does show 500 leukocyte esterase, 0-5 red blood cells, 50-100 white blood cells with 1+ bacteria. I reviewed the patient's lab testing from today and his renal function is at baseline. There are no significant interval changes. As far as behavioral issues the patient has been calm and cooperative here. I think it is reasonable to start him on antibiotics for a UTI and send a urine culture. His caregiver was amenable to this. I do not believe he needs any IV fluids or other blood work. Patient will be discharged home in stable condition. Impression: 1. Urinary tract infection Lab Data Labs: Laboratory Results - last 24 hr 01/02/22 19:45 Urine Color Yellow Urine Clarity Clear Urine pH 6.0 Ur Specific [place] 1.020 Urine Protein 100 H Urine Glucose (UA) Normal Urine Ketones Negative Urine Occult Blood 10 H Urine Nitrite Negative Urine Bilirubin Negative Urine Urobilinogen Normal Ur Leukocyte Esterase 500 H Urine RBC 0-5 SEEN Urine WBC 50-100 SEEN Ur Squamous Epith Cells 0 SEEN Urine Bacteria 1+ Urine Mucus 0 SEEN Discharge Plan Triage Chief Complaint: Abn Labs ED Provider: Nimesh Wood Dx/Rx/DC Orders Instructions: ED CYSTITIS Female Adult Prescriptions: New cephalexin 500 mg capsule 500 mg PO Q12 Qty: 14 RF: 0 No Action Flovent Diskus 50 MCG blister with device 50 mcg inhalation DAILY RF: 0 ammonium lactate [AmLactin] 57 GM lotion 57 g TP BID RF: 0 acetaminophen 500 MG tablet 1,000 mg PO Q4H PRN (Reason: Pain) RF: 0 bupropion HCl 75 MG tablet 75 mg PO BID RF: 0 montelukast [Singulair] 10 MG tablet 10 mg PO QHS RF: 0 fluvoxamine 50 MG tablet 100 mg PO BID RF: 0 oxybutynin chloride 5 MG tablet 5 mg PO BID RF: 0 risperidone 1 MG tablet 1 mg PO TID RF: 0 cholecalciferol (vitamin D3) [Vitamin D3] 2,000 UNIT capsule 2,000 unit PO DAILY RF: 0 Primary Care Provider: Floyd Guardado Referrals: Floyd Guardado MD [Primary Care Provider] - Disposition Disposition: Home, Self Care Discharge Date/Time: 01/02/22 21:51
== END 2022-01-02 21:51 | disposition home or self-care (01) ==
LOC: ED 21:47
PROVIDERS: Emergency Provider Student in an Organized Health Care Education/Training Program; PCP Family Medicine; Visit Provider Student in an Organized Health Care Education/Training Program
DX: N39.0 Urinary tract infection, site not specified (principal); E66.01 Morbid (severe) obesity due to excess calories; Z68.41 Body mass index [BMI] 40.0-44.9, adult; F84.0 Autistic disorder; Z79.899 Other long term (current) drug therapy; F79 Unspecified intellectual disabilities
CPT/HCPCS: 81001; 87086; 87088; 99282

== ENCOUNTER 2022-01-22 09:50 | Outpatient (CLI) | payer MEDICARE, MEDICAID, SELFPAY ==
[2022-01-22 12:39] LABS: Hemoglobin A1c 6.5 % (3.8-5.6)
[2022-01-22 12:42] LABS: ALB/GLOB Ratio 0.9 RATIO (0.9-2.4); AST(SGOT) 34 U/L (15-37); Alanine Aminotransfer ALT/SGPT 46 U/L (16-61); Albumin, Serum 3.2 g/dL (3.2-5.0); Alkaline Phosphatase 136 U/L (45-117); Anion Gap 7 (5-15); BUN 32 mg/dL (7-18); BUN/Creat Ratio 16.1 RATIO (10-20); Chloride 109 mmol/L (98-107); Creatinine, Serum 1.99 mg/dL (0.70-1.30); EST Glomerular Filtration Rate 42 mL/min (>60); Est Glom Filt Rate - Afr Amer 51 mL/min (>60); Globulin 3.6 g/dL (2.2-4.2); Glucose 201 mg/dL (74-106); Potassium 4.6 mmol/L (3.5-5.1); Protein, Total 6.8 g/dL (6.4-8.2); Sodium Level 138 mmol/L (136-145)
== END 2022-01-22 23:59 | disposition home or self-care (01) ==
LOC: MFPLAB 09:51
PROVIDERS: PCP Family Medicine; Referring Provider Family Medicine; Visit Provider Family Medicine
DX: R73.09 Other abnormal glucose (principal)
CPT/HCPCS: 36415; 80053; 83036

== ENCOUNTER 2022-02-15 07:53 | Outpatient (CLI) | payer MEDICARE, MEDICAID, SELFPAY ==
[2022-02-15 08:58] LABS: Hematocrit 43.5 % (40-54); Hemoglobin 15.2 g/dL (13.0-16.5); Mean Corp Hgb Conc 34.9 g/dL (32-36); Mean Corpuscular Hgb 29.2 pg (27.0-32.0); Mean Corpuscular Volume 83.5 fL (80-94); Platelet Count 169 K/mm3 (150-450); RBC Distribution Width CV 14.5 % (11.6-14.6); RBC Distribution Width SD 44.1 fl (35.1-43.9); Red Blood Count 5.21 M/mm3 (4.6-6.2); White Blood Count 4.6 K/mm3 (4.4-11.0)
[2022-02-15 09:02] LABS: Protein, Urine (Random) 102.4 mg/dL (<11.9); Protein:Creat Ratio 1446 mg/g CRE (0-200)
[2022-02-15 09:38] LABS: Hemoglobin A1c 6.2 % (3.8-5.6)
[2022-02-15 09:42] LABS: ALB/GLOB Ratio 0.9 RATIO (0.9-2.4); AST(SGOT) 22 U/L (15-37); Alanine Aminotransfer ALT/SGPT 40 U/L (16-61); Albumin, Serum 3.3 g/dL (3.2-5.0); Alkaline Phosphatase 130 U/L (45-117); Anion Gap 7 (5-15); BUN 38 mg/dL (7-18); BUN/Creat Ratio 18.2 RATIO (10-20); Calcium,Total 9.4 mg/dL (8.5-10.1); Chloride 108 mmol/L (98-107); Creatinine, Serum 2.09 mg/dL (0.70-1.30); EST Glomerular Filtration Rate 39 mL/min (>60); Est Glom Filt Rate - Afr Amer 48 mL/min (>60); Globulin 3.7 g/dL (2.2-4.2); Glucose 240 mg/dL (74-106); Potassium 4.1 mmol/L (3.5-5.1); Sodium Level 138 mmol/L (136-145); Thyroid Stim Hormone (TSH) 2.87 uIU/mL (0.358-3.74)
[2022-02-15 09:43] LABS: Vitamin D,25 Hydroxy 47.2 ng/mL
== END 2022-02-15 23:59 | disposition home or self-care (01) ==
LOC: LAB 07:55
PROVIDERS: PCP Family Medicine; Referring Provider Internal Medicine Nephrology; Visit Provider Internal Medicine Nephrology
DX: N18.32 Chronic kidney disease, stage 3b (principal); Z79.899 Other long term (current) drug therapy
CPT/HCPCS: 36415; 80053; 82306; 82542; 82570; 83036; 84156; 84443; 85027

== ENCOUNTER → 2022-05-08 | Outpatient (CLI) | payer MEDICARE, MEDICAID, SELFPAY ==
--- NOTE | 2022-05-08 15:50 | CYST_PTH ---
PATIENT: DANN PALACIOS LOC: LAB U#:[id number] AGE/SX: 31/M ROOM: RE05/08/[address]: Dr. Adelina Valderrama MD : 1990 BED: DIS: 05/08/2022 SPEC #: [id number] RECD: 05/09/22 07:06 STATUS: MONICA RE #: [id number] SUNIL: 05/08/22 15:[address]: Charles Stevenson DEPT: SURGICAL PATHOLOGY RECD BY: Evaristo Evans ENTERED: 05/09/22 08:38 SP TYPE: Cyst OTHR DR: MD Dr. Floyd Mora MD Dr. Robert D Cebul, MD Tissues: A - CYST B - CYST C - CYST D - CYST Procedures: Surgery Specimen Level III Comments: @ Ordering doctor for SUIII edited from to @ oliver KITCHEN at 05/09/22 1320 @ Submitting doctor edited from to @ by JOSE CARLOSOD at 05/09/22 1320 HEADER OPERATION: Excision scalp cyst x4 PRE-OP DIAGNOSIS: Scalp cysts TISSUE SUBMITTED: A ? Apical scalp, B ? Frontal scalp, C ? Inferior parietal, D ? Superior parietal MICROSCOPIC DIAGNOSIS A. 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 B. Frontal scalp cyst, excision: Consistent with ruptured trichilemmal cyst with chronic inflammation, foreign body giant cell reaction and calcification. C. Inferior parietal cyst, excision: Consistent with ruptured trichilemmal cyst with chronic inflammation, foreign body giant cell reaction and calcification. D. Superior parietal cyst, excision: Consistent with ruptured trichilemmal cyst with chronic inflammation, foreign body giant cell reaction and calcification. SJ:rg 05/10/2022 MICROSCOPIC DESCRIPTION Slides are reviewed. GROSS DESCRIPTION A - Received in fixative is one container labeled with the patient's name and designated apical scalp. The specimen consists of a previously, partially rupture cyst measuring 1.5 x 1.5 x 1 cm. A few fragments of olivarez-white cheesy material consistent with cyst contents are also present in the container measuring in aggregate 0.5 x 0.5 x 0.2 cm. The cyst is serially sectioned. The entire specimen is submitted in one cassette. B - Received in fixative is one container labeled with the patient's name and designated frontal. The specimen consists of a olivarez, nodular cyst measuring 1.5 x 1.5 x 1 cm. The cyst is serially sectioned and shows olivarez-yellowish cheesy contents. A few fragments of cyst contents consistent with olivarez-white cheesy material are also present in the container. The entire specimen is submitted in one cassette. C - Received in fixative is one container labeled with the patient's name and designated inferior parietal. The specimen consists of a piece of skin and olivarez soft tissue that in aggregate measure 1.2 x 0.8 x 0.3 cm. The specimen is totally submitted in one cassette. D - Received in fixative is one container labeled with the patient's name and designated superior parietal. The specimen consists of a previously ruptured cyst measuring 1.5 x 1 x 0.5 cm. The specimen is bisected and submitted entirely in one cassette. / SJ:rg 05/09/2022 TC:5 CPT: 12016 x4
[2022-05-09 08:27] LABS: Bacteria 0 SEEN /hpf (None Seen); Mucous, Urine 0 SEEN /hpf (<or=2+); Red Blood Cells-Urine 0 SEEN /hpf (0-5); Squamous Epithelial Cells - UA 0 SEEN /hpf (0-5); White Blood Cells 0 SEEN /hpf (0-5)
[2022-05-09 09:09] LABS: Color, Urine Yellow (Yellow); Glucose, Dipstick 1000 mg/dl (Normal); Ketone-Dipstick Negative (Negative); Leukocyte Esterase-Dipstick Negative /ul (Negative); Nitrite-Dipstick Negative (Negative); Occult Blood-Urine Negative /ul (Negative); Protein-Dipstick 100 mg/dl (Negative); Specific Gravity, Urine 1.015 (1.002-1.030); Urine Bilirubin Dipstick Negative (Negative); Urine Clarity Clear (Clear); Urine Urobilinogen Normal (Normal)
== END | disposition home or self-care (01) ==
PROVIDERS: PCP Family Medicine; Referring Provider Internal Medicine Nephrology; Visit Provider Internal Medicine Nephrology
DX: L72.9 Follicular cyst of the skin and subcutaneous tissue, unspecified (principal); N39.0 Urinary tract infection, site not specified
CPT/HCPCS: 36415; 81001; 88304

== ENCOUNTER 2022-06-04 17:15 | Emergency (ER) | payer MEDICARE, MEDICAID, SELFPAY ==
[2022-06-04 17:16] VITALS: BP 153/101; PULSE 136; RESP 26; TEMP 37.3; BMI 40.0
--- NOTE | 2022-06-04 17:25 | EKG12_ITS ---
Test Reason : hyperglycemic Blood Pressure : / mmHG Vent. Rate : 129 BPM Atrial Rate : 129 BPM P-R Int : 150 ms QRS Dur : 092 ms QT Int : 294 ms P-R-T Axes : 046 150 041 degrees QTc Int : 430 ms Sinus tachycardia Left posterior fascicular block Cannot rule out Anterior infarct , age undetermined Abnormal ECG Confirmed by SHIRA ANDREWS, RAISA ([id number]), staff editor VALERIA HERNANDEZ ([id number]) on 06/06/2022 2:10:48 PM Referred By: Lakisha Confirmed By:RAISA SILVA MD
--- NOTE | 2022-06-04 17:29 | EDS_ITS ---
HPI History of Present Illness Chief Complaint: Hyperglycemia Narrative Narrative: 31-year-old male with history of prediabetes presenting with hyperglycemia. Apparently had some right lower back pain today and went to the urgent care. Urgent care checked his urine to make sure that he does not have a UTI which has had in the past. He was noted to be spilling glucose into his urine. They checked his blood sugars greater 500. Patient is only a prediabetic has not been treated for diabetes. He states today he has been drinking a lot more water and urinating more frequently. He does not have any cough, shortness of breath, fever, chills, he denies polyphasia. His last meal was today at lunchtime at about noon when he had pancakes with syrup. Patient feels otherwise well. [facility] Medical History Autism Morbid obesity with BMI of 40.0-44.9, adult mrdd Prediabetes Sebaceous cyst Home Medications acetaminophen 500 mg tablet 1,000 mg PO Q4H PRN Pain 04/28/17 [History Last Taken Unknown] ammonium lactate 12 % lotion (AmLactin) 57 g TP BID 04/28/17 [History Last Taken Unknown] bupropion HCl 75 mg tablet 75 mg PO BID 04/28/17 [History Last Taken Unknown] cholecalciferol (vitamin D3) 50 mcg (2,000 unit) capsule (Vitamin D3) 2,000 unit PO DAILY 04/28/17 [History Last Taken Unknown] fluticasone propionate 50 mcg/actuation blister powder for inhalation (Flovent Diskus) 50 mcg inhalation DAILY 04/28/17 [History Last Taken Unknown] fluvoxamine 50 mg tablet 100 mg PO BID 04/28/17 [History Last Taken Unknown] montelukast 10 mg tablet (Singulair) 10 mg PO QHS 04/28/17 [History Last Taken Unknown] oxybutynin chloride 5 mg tablet 5 mg PO BID 04/28/17 [History Last Taken Unknown] risperidone 1 mg tablet 1 mg PO TID 04/28/17 [History Last Taken Unknown] clonazepam 0.5 mg tablet 1 tab PO BID 06/04/22 [History Last Taken Unknown] enalapril maleate 10 mg tablet 10 mg PO DAILY 06/04/22 [History Last Taken Unknown] glimepiride 1 mg tablet 1 mg PO DAILY #30 tabs 06/04/22 [Rx Last Taken Unknown] lamotrigine 100 mg tablet 1 tab PO BID 06/04/22 [History Last Taken Unknown] lamotrigine 25 mg tablet 1 tab PO DAILY 06/04/22 [History Last Taken Unknown] metformin 500 mg tablet 500 mg PO DAILY #30 tabs 06/04/22 [Rx Last Taken Unknown] quetiapine 200 mg tablet 1 tab PO BID 06/04/22 [History Last Taken Unknown] Allergy/AdvReac Type Severity Reaction Status Date / Time cephalexin [From Keflex] Allergy Rash Verified 06/04/22 17:19 Surgical History History of excision of mass Social History Smoking Status: Never smoker ROS ROS ED Constitutional Constitutional ED: Denies chills or fever(s) Eyes Eyes: Denies change in vision or diplopia ENT ENT ED: Denies rhinorrhea or sore throat Cardiovascular Cardiovascular: Denies chest pain or palpitations Respiratory/Chest Respiratory/Chest: Denies cough or dyspnea Gastrointestinal Gastrointestinal: Denies abdominal pain or constipation Genitourinary Genitourinary ED: Denies dysuria or hematuria Musculoskeletal Musculoskeletal: Reports back pain; Denies arthralgias Integumentary Denies abscess or Abrasions Neurologic Neurologic: Denies headache(s), paresthesias or weakness EXAM Physical Exam Const Vital Signs: 06/04/22 17:16 06/04/22 17:16 06/04/22 17:25 Temperature 99.2 F H 99.2 F H Temperature Source Temporal Temporal Pulse Rate 136 H 136 H Respiratory Rate 26 H 26 H Respiratory Effort Short of Breath Respiratory Pattern Tachypnea Blood Pressure 153/101 H 153/101 H Blood Pressure Mean 118 118 Pulse Ox Oxygen Delivery Method 06/04/22 18:30 06/04/22 19:04 06/04/22 20:00 Temperature Temperature Source Pulse Rate 116 H 74 113 H Respiratory Rate 24 H 18 23 H Respiratory Effort Respiratory Pattern Blood Pressure 153/88 H 187/73 H 162/101 H Blood Pressure Mean 109 111 121 Pulse Ox 96 96 97 Oxygen Delivery Method Room Air Room Air Room Air 06/04/22 21:00 06/04/22 22:01 Temperature 98.0 F Temperature Source Temporal Pulse Rate 121 H 119 H Respiratory Rate 20 H 16 Respiratory Effort Respiratory Pattern Blood Pressure 147/103 H 147/103 H Blood Pressure Mean 117 Pulse Ox 96 96 Oxygen Delivery Method Room Air Positive well nourished General Appearance ED: NAD; Negative for pallor HEENT Reports dry mucous membranes Negative for trauma Mouth ED: Yes dry mucous membranes Mouth: dry mucous membranes Eyes PERRL and EOMs intact bilaterally Chest Wall inspection of chest normal and palpation of chest normal Resp Resp Narrative: Tachypneic. Lungs clear to auscultation. Cardio regular rhythm Rate: tachycardic GI normal to inspection, nondistended, normoactive bowel sounds Neuro oriented x3 and CN's II-XII intact bilaterally Sensorium / Orientation: alert Psych mental status grossly normal Skin no rashes or lesions noted and no wounds General Skin Exam: Negative for jaundice or pallor MDM MDM MDM Narrative Medical decision making narrative: Patient presenting with hyperglycemia. He was borderline diabetes prior to this. He was tachycardic so I did obtain an EKG to make sure he did not have an irregular rhythm and his EKG is sinus tachycardia with ventricular rate of 129 bpm without sign of ischemic change or dysrhythmia on my interpretation. Chest x-ray negative for acute process on my interpretation. High-sensitivity troponin is 4. Urinalysis shows elevated glucose at 1000 but no infection. Blood work is obtained and he has a slight leukocytosis of 13.2. Hemoglobin and hematocrit are stable. Platelets are normal. Creatinine at baseline at 2.2. Sodium slightly low however glucose is 465 so this is likely pseudohyponatremia. No anion gap noted. After 2 L of fluids the patient's blood sugar is 386. He was given 5 units of subcu insulin as he is insulin na?ve and has CKD. His blood sugars have been in the upper 200s most of his visits. Patient was discussed with Dr. Simeon Preston who is on-call for Dr. Guardado. He recommends starting on glimepiride 1 mg p.o. daily as well as metformin 500 mg p.o. daily. Patient given first dose in the ER. Patient given a prescription for this as well. Discussed all results with he and his mother. His mother will ensure that he gets to his office visit. He is asked. Patient discharged home in stable condition. Impression: 1. Tachycardia 2. Hyperglycemia 3. Right lumbar back 4. New onset diabetes Lab Data Attestation: I reviewed the patient's lab results. Labs: Laboratory Results - last 24 hr 06/04/22 06/04/22 06/04/22 17:31 17:31 17:31 WBC 13.2 H RBC 5.09 Hgb 15.1 Hct 42.4 MCV 83.3 MCH 29.7 MCHC 35.6 RDW Std Deviation 37.3 RDW Coeff of Judith 12.3 Plt Count 209 MPV 9.1 Immature Gran % (Auto) 0.500 Neut % (Auto) 83.9 H Lymph % (Auto) 5.7 L [place] % (Auto) 8.9 Eos % (Auto) 0.8 Baso % (Auto) 0.2 Absolute Neuts (auto) 11.0 H Absolute Lymphs (auto) 0.75 L Nucleated RBC % 0 Sodium 131 L Potassium 4.0 Chloride 96 L Carbon Dioxide 22.0 Anion Gap 13 BUN 41 H Creatinine 2.20 H Estim Creat Clear Calc 53.40 Est GFR (MDRD) Af Amer 45 L Est GFR (MDRD) Non-Af 37 L BUN/Creatinine Ratio 18.6 Glucose 465 H* Calcium 9.9 Total Bilirubin 0.40 AST 29 ALT 61 Alkaline Phosphatase 178 H Troponin I High Sens 4 Total Protein 7.7 Albumin 3.6 Globulin 4.1 Albumin/Globulin Ratio 0.9 Urine Color Urine Clarity Urine pH Ur Specific [place] Urine Protein Urine Glucose (UA) Urine Ketones Urine Occult Blood Urine Nitrite Urine Bilirubin Urine Urobilinogen Ur Leukocyte Esterase Urine RBC Urine WBC Ur Squamous Epith Cells Urine Bacteria Urine Mucus Acetone Level NEGATIVE POC Glucose 06/04/22 06/04/22 06/04/22 18:28 18:50 19:58 WBC RBC Hgb Hct MCV MCH MCHC RDW Std Deviation RDW Coeff of Judith Plt Count MPV Immature Gran % (Auto) Neut % (Auto) Lymph % (Auto) [place] % (Auto) Eos % (Auto) Baso % (Auto) Absolute Neuts (auto) Absolute Lymphs (auto) Nucleated RBC % Sodium Potassium Chloride Carbon Dioxide Anion Gap BUN Creatinine Estim Creat Clear Calc Est GFR (MDRD) Af Amer Est GFR (MDRD) Non-Af BUN/Creatinine Ratio Glucose Calcium Total Bilirubin AST ALT Alkaline Phosphatase Troponin I High Sens Total Protein Albumin Globulin Albumin/Globulin Ratio Urine Color Straw Urine Clarity Clear Urine pH 6.0 Ur Specific [place] 1.010 Urine Protein 100 H Urine Glucose (UA) 1000 H Urine Ketones Negative Urine Occult Blood 10 H Urine Nitrite Negative Urine Bilirubin Negative Urine Urobilinogen Normal Ur Leukocyte Esterase Negative Urine RBC 0 SEEN Urine WBC 0-5 SEEN Ur Squamous Epith Cells 0 SEEN Urine Bacteria RARE Urine Mucus 0 SEEN Acetone Level POC Glucose 412 H 346 H 06/04/22 21:01 WBC RBC Hgb Hct MCV MCH MCHC RDW Std Deviation RDW Coeff of Judith Plt Count MPV Immature Gran % (Auto) Neut % (Auto) Lymph % (Auto) [place] % (Auto) Eos % (Auto) Baso % (Auto) Absolute Neuts (auto) Absolute Lymphs (auto) Nucleated RBC % Sodium Potassium Chloride Carbon Dioxide Anion Gap BUN Creatinine Estim Creat Clear Calc Est GFR (MDRD) Af Amer Est GFR (MDRD) Non-Af BUN/Creatinine Ratio Glucose Calcium Total Bilirubin AST ALT Alkaline Phosphatase Troponin I High Sens Total Protein Albumin Globulin Albumin/Globulin Ratio Urine Color Urine Clarity Urine pH Ur Specific [place] Urine Protein Urine Glucose (UA) Urine Ketones Urine Occult Blood Urine Nitrite Urine Bilirubin Urine Urobilinogen Ur Leukocyte Esterase Urine RBC Urine WBC Ur Squamous Epith Cells Urine Bacteria Urine Mucus Acetone Level POC Glucose 386 H Radiography Diagnostic Testing: Clinical Impression(s) from Imaging Studies Chest X-Ray 06/04/22 17:48 IMPRESSION: Normal x-ray examination of the chest. Electronically Signed: Gucci Nguyen MD at 19:30 EDT Reading Location ID and State: [address] [place] [address] , Service support , Discharge Plan Triage Chief Complaint: Hyperglycemia ED Provider: Nimesh Wood Dx/Rx/DC Orders Instructions: ED Diabetic Hyperglycemia Prescriptions: New metformin 500 mg tablet 500 mg PO DAILY Qty: 30 0RF glimepiride 1 mg tablet 1 mg PO DAILY Qty: 30 0RF No Action Flovent Diskus 50 MCG blister with device 50 mcg inhalation DAILY ammonium lactate [AmLactin] 57 GM lotion 57 g TP BID acetaminophen 500 MG tablet 1,000 mg PO Q4H PRN (Reason: Pain) bupropion HCl 75 MG tablet 75 mg PO BID montelukast [Singulair] 10 MG tablet 10 mg PO QHS fluvoxamine 50 MG tablet 100 mg PO BID oxybutynin chloride 5 MG tablet 5 mg PO BID risperidone 1 MG tablet 1 mg PO TID cholecalciferol (vitamin D3) [Vitamin D3] 2,000 UNIT capsule 2,000 unit PO DAILY enalapril maleate 10 mg Tablet 10 mg PO DAILY clonazepam 0.5 mg tablet 1 tab PO BID quetiapine 200 mg tablet 1 tab PO BID lamotrigine 25 mg tablet 1 tab PO DAILY Rx Instructions: AM lamotrigine 100 mg tablet 1 tab PO BID Primary Care Provider: Floyd Guardado Referrals: Floyd Guardado MD [Primary Care Provider] - Disposition Disposition: Home, Self Care Discharge Date/Time: 06/04/22 22:03
[2022-06-04] MEDS: 0.9% Normal Saline 1,000 ML 999 ML IV ×2 (17:37→17:44)
[2022-06-04 17:40] LABS: Absolute Lymphocyte Count 0.75 X10^3/uL (0.83-4.51); Basophil# 0.03 X10^3/uL; Basophil% 0.2 % (0-1); Eosinophil# 0.11 X10^3/uL; Eosinophils% 0.8 % (0-5); Hematocrit 42.4 % (40-54); Hemoglobin 15.1 g/dL (13.0-16.5); Lymphocyte # 0.75 X10^3/ul (0.83-4.51); Lymphocyte % 5.7 % (19-41); Mean Corp Hgb Conc 35.6 g/dL (32-36); Mean Corpuscular Hgb 29.7 pg (27.0-32.0); Mean Corpuscular Volume 83.3 fL (80-94); Mean Platelet Vol. 9.1 fl (6.2-12.0); Monocyte# 1.17 X10^3/uL; Monocyte% 8.9 % (0-10); NRBC Flagged by Analyzer 0 % (0-5); Neutrophil # 11.04 X10^3/uL (2.7-7.7); Neutrophil % 83.9 % (47-70); Platelet Count 209 K/mm3 (150-450); RBC Distribution Width CV 12.3 % (11.6-14.6); RBC Distribution Width SD 37.3 fl (35.1-43.9); Red Blood Count 5.09 M/mm3 (4.6-6.2); White Blood Count 13.2 K/mm3 (4.4-11.0)
--- NOTE | 2022-06-04 17:48 | RAD_ITS ---
STUDY: X-RAY CHEST REASON FOR EXAM: Male, 31 years old. Tachypnea TECHNIQUE: Single AP portable view of the chest. COMPARISON: November 18, 2018 FINDINGS: The lungs are clear and expanded. There is no demonstrated pleural abnormality. Normal size heart. Normal mediastinum and peter. Normal visualized pulmonary arteries. Normal visualized aortic arch and descending thoracic aorta. There is a dextroscoliosis of the thoracic spine. Normal visualized ribs, clavicles, and shoulders. There is no demonstrated abnormality of the visualized soft tissue structures of the upper abdomen. RAD/Chest 1 View (Portable) IMPRESSION: Normal x-ray examination of the chest. Electronically Signed: Gucci Nguyen MD at 19:30 EDT ,
[2022-06-04 18:30] VITALS: BP 153/88; PULSE 116; RESP 24; O2SAT 96
[2022-06-04 18:32] LABS: Mucous, Urine 0 SEEN /hpf (<or=2+); Red Blood Cells-Urine 0 SEEN /hpf (0-5); Squamous Epithelial Cells - UA 0 SEEN /hpf (0-5)
[2022-06-04 18:39] LABS: ALB/GLOB Ratio 0.9 RATIO (0.9-2.4); AST(SGOT) 29 U/L (15-37); Alanine Aminotransfer ALT/SGPT 61 U/L (16-61); Albumin, Serum 3.6 g/dL (3.2-5.0); Alkaline Phosphatase 178 U/L (45-117); Anion Gap 13 (5-15); BUN 41 mg/dL (7-18); BUN/Creat Ratio 18.6 RATIO (10-20); Calcium,Total 9.9 mg/dL (8.5-10.1); Chloride 96 mmol/L (98-107); EST Glomerular Filtration Rate 37 mL/min (>60); Est Glom Filt Rate - Afr Amer 45 mL/min (>60); Globulin 4.1 g/dL (2.2-4.2); Glucose 465 mg/dL (74-106); Protein, Total 7.7 g/dL (6.4-8.2); Sodium Level 131 mmol/L (136-145); Troponin-I HS 4 pg/mL (3.0-78.0)
[2022-06-04 19:04] VITALS: BP 187/73; PULSE 74; RESP 18; O2SAT 96
[2022-06-04 19:14] LABS: Color, Urine Straw (Yellow); Glucose, Dipstick 1000 mg/dl (Normal); Ketone-Dipstick Negative (Negative); Leukocyte Esterase-Dipstick Negative /ul (Negative); Nitrite-Dipstick Negative (Negative); Occult Blood-Urine 10 /ul (Negative); Protein-Dipstick 100 mg/dl (Negative); Urine Bilirubin Dipstick Negative (Negative); Urine Clarity Clear (Clear); Urine Urobilinogen Normal (Normal)
[2022-06-04 19:16] LABS: Bedside Glucose 412 mg/dL (74-106)
[2022-06-04 19:36] LABS: Bacteria RARE /hpf (None Seen); White Blood Cells 0-5 SEEN /hpf (0-5)
[2022-06-04 20:00] VITALS: BP 162/101; PULSE 113; RESP 23; O2SAT 97
[2022-06-04 20:20] LABS: Bedside Glucose 346 mg/dL (74-106)
[2022-06-04 21:00] VITALS: BP 147/103; PULSE 121; RESP 20; TEMP 36.7; O2SAT 96
[2022-06-04] MEDS: Insulin Lispro 100 UNIT/ML INSULN.PEN SC (21:05)
[2022-06-04] MEDS: metFORMIN HCl 500 MG Tablet PO (21:56)
[2022-06-04] MEDS: Glimepiride 1 MG Tablet PO (21:56)
[2022-06-04 22:01] VITALS: BP 147/103; PULSE 119; RESP 16; O2SAT 96
[2022-06-04 22:21] LABS: Bedside Glucose 386 mg/dL (74-106)
[2022-06-06 20:01] LABS: Bedside Glucose 500 mg/dL (74-106)
== END 2022-06-04 22:03 | disposition home or self-care (01) ==
PROVIDERS: Emergency Provider Student in an Organized Health Care Education/Training Program; PCP Family Medicine; Visit Provider Student in an Organized Health Care Education/Training Program
DX: E11.65 Type 2 diabetes mellitus with hyperglycemia (principal); E11.22 Type 2 diabetes mellitus with diabetic chronic kidney disease; E66.01 Morbid (severe) obesity due to excess calories; N18.9 Chronic kidney disease, unspecified; Z79.84 Long term (current) use of oral hypoglycemic drugs; M54.50 Low back pain, unspecified; R00.0 Tachycardia, unspecified; Z79.899 Other long term (current) drug therapy; Z87.440 Personal history of urinary (tract) infections
CPT/HCPCS: 71045; 80053; 81001; 82009; 82962; 84484; 85025; 93005; 96360; 96361; 96372; 99285; J7030; A4216

== ENCOUNTER → 2022-06-19 | Outpatient (CLI) | payer MEDICARE, MEDICAID, SELFPAY ==
[2022-06-19 19:43] LABS: AST(SGOT) 49 U/L (15-37); Alanine Aminotransfer ALT/SGPT 83 U/L (16-61); Albumin, Serum 3.4 g/dL (3.2-5.0); Alkaline Phosphatase 141 U/L (45-117); Anion Gap 10 (5-15); BUN 47 mg/dL (7-18); BUN/Creat Ratio 18.9 RATIO (10-20); Calcium,Total 10.2 mg/dL (8.5-10.1); Chloride 104 mmol/L (98-107); Creatinine, Serum 2.49 mg/dL (0.70-1.30); EST Glomerular Filtration Rate 32 mL/min (>60); Est Glom Filt Rate - Afr Amer 39 mL/min (>60); Globulin 3.4 g/dL (2.2-4.2); Glucose 128 mg/dL (74-106); Potassium 4.6 mmol/L (3.5-5.1); Protein, Total 6.8 g/dL (6.4-8.2); Sodium Level 136 mmol/L (136-145)
== END | disposition home or self-care (01) ==
LOC: MFPLAB 14:46
PROVIDERS: PCP Family Medicine; Referring Provider Family Medicine; Visit Provider Nurse Practitioner Family
DX: E11.9 Type 2 diabetes mellitus without complications (principal)
CPT/HCPCS: 36415; 80053

== ENCOUNTER 2022-06-23 21:05 | Emergency (ER) | payer MEDICARE, MEDICAID, SELFPAY ==
[2022-06-23 21:07] VITALS: BP 125/69; PULSE 97; RESP 16; TEMP 36.2; O2SAT 98; BMI 27.1
--- NOTE | 2022-06-23 21:57 | EDS_ITS ---
HPI History of Present Illness Chief Complaint: Other, Pain/Inj Narrative Narrative: 31-year-old male presenting with wounds to the bilateral feet. Apparently he was jumping off a diving board today and states he caught his toes on a bolt. He states he was only 1 bowl but managed to avulsed the skin off of both of his great toes and some degree the second toes of the plantar surface of his feet. Patient has been able to ambulate. He is not any bony injury. Reportedly his tetanus is up-to-date. [facility] Medical History Autism Morbid obesity with BMI of 40.0-44.9, adult mrdd Prediabetes Sebaceous cyst Home Medications acetaminophen 500 mg tablet 1,000 mg PO Q4H PRN Pain 04/28/17 [History Last Taken Unknown] ammonium lactate 12 % lotion (AmLactin) 57 g TP BID 04/28/17 [History Last Taken Unknown] bupropion HCl 75 mg tablet 75 mg PO BID 04/28/17 [History Last Taken Unknown] cholecalciferol (vitamin D3) 50 mcg (2,000 unit) capsule (Vitamin D3) 2,000 unit PO DAILY 04/28/17 [History Last Taken Unknown] fluticasone propionate 50 mcg/actuation blister powder for inhalation (Flovent Diskus) 50 mcg inhalation DAILY 04/28/17 [History Last Taken Unknown] fluvoxamine 50 mg tablet 100 mg PO BID 04/28/17 [History Last Taken Unknown] montelukast 10 mg tablet (Singulair) 10 mg PO QHS 04/28/17 [History Last Taken Unknown] oxybutynin chloride 5 mg tablet 5 mg PO BID 04/28/17 [History Last Taken Unknown] risperidone 1 mg tablet 1 mg PO 4X/DAY 04/28/17 [History Last Taken Unknown] clonazepam 0.5 mg tablet 1 tab PO BID 06/04/22 [History Last Taken Unknown] enalapril maleate 10 mg tablet 10 mg PO DAILY 06/04/22 [History Last Taken Unknown] glimepiride 1 mg tablet 1 mg PO DAILY #30 tabs 06/04/22 [Rx Last Taken Unknown] lamotrigine 100 mg tablet 1 tab PO BID 06/04/22 [History Last Taken Unknown] lamotrigine 25 mg tablet 1 tab PO DAILY 06/04/22 [History Last Taken Unknown] metformin 500 mg tablet 500 mg PO DAILY #30 tabs 06/04/22 [Rx Last Taken Unknown] quetiapine 200 mg tablet 1 tab PO BID 06/04/22 [History Last Taken Unknown] Allergy/AdvReac Type Severity Reaction Status Date / Time cephalexin [From Keflex] Allergy Rash Verified 06/23/22 21:11 Surgical History History of excision of mass Social History Smoking Status: Never smoker ROS ROS ED Review of Systems ROS Unobtainable: Denies due to encephalopathy Constitutional Constitutional ED: Denies chills or fever(s) Eyes Eyes: Denies change in vision ENT ENT ED: Denies rhinorrhea or sore throat Cardiovascular Cardiovascular: Denies chest pain or palpitations Respiratory/Chest Respiratory/Chest: Denies cough or dyspnea Gastrointestinal Gastrointestinal: Denies abdominal pain or constipation Genitourinary Genitourinary ED: Denies dysuria or hematuria Musculoskeletal Musculoskeletal: Denies arthralgias or back pain Integumentary Reports other Details: Skin avulsions bilateral toes Neurologic Neurologic: Denies headache(s) EXAM Physical Exam Const Vital Signs: 06/23/22 21:07 Temperature 97.1 F L Temperature Source Temporal Pulse Rate 97 Respiratory Rate 16 Blood Pressure 125/69 H Blood Pressure Mean 87 Pulse Ox 98 Oxygen Delivery Method Room Air Positive well nourished General Appearance ED: NAD HEENT atraumatic Eyes PERRL and EOMs intact bilaterally Chest Wall inspection of chest normal Resp normal respiratory effort and clear to auscultation bilaterally Cardio regular rhythm Rate: regular rate GI normal to inspection, nondistended, normoactive bowel sounds Neuro oriented x3 and CN's II-XII intact bilaterally Sensorium / Orientation: alert Psych mental status grossly normal Skin Skin Narrative: Skin avulsions noted to the plantar surface of the bilateral great toes. There are no deep lacerations. Skin is still intact. There are to some degree smaller avulsions of the plantar surface of the bilateral second toes on the plantar surface. These are very superficial. No bony tenderness. Bilateral feet neurovascular intact brisk up refill to all 10 toes. MDM MDM MDM Narrative Medical decision making narrative: Patient has skin avulsions to the plantar surface of his great toes bilaterally and his second toes bilaterally. These do not require suturing. There is no active bleeding. There is no bony tenderness. There is no evidence of cellulitis. Patient's wounds will be cleaned and dressed with bacitracin and a dressing. I recommended that he keep his feet clean and dry. He should soak these in hot soapy water and then apply dressings when they are clean. His family acknowledges understanding. He will stay home from [facility] tomorrow so he does not have to be in his shoes. He does have a safety equipment testing specialist he can follow-up with and I recommended to make an appointment tomorrow for follow-up sometime this next week. If there is any concern for worsening symptoms or infection he is to return to the emergency room. I do not believe he requires any antibiotics right now. Impression: 1. Skin avulsion right great toe 2. Skin avulsion left great toe 3. Skin avulsion left second toe 4. Skin avulsion right second Lab Data Attestation: I reviewed the patient's lab results. Discharge Plan Triage Chief Complaint: Other, Pain/Inj ED Provider: Nimesh Wood Dx/Rx/DC Orders Instructions: ED Skin Avulsion Prescriptions: No Action Flovent Diskus 50 MCG blister with device 50 mcg inhalation DAILY ammonium lactate [AmLactin] 57 GM lotion 57 g TP BID acetaminophen 500 MG tablet 1,000 mg PO Q4H PRN (Reason: Pain) bupropion HCl 75 MG tablet 75 mg PO BID montelukast [Singulair] 10 MG tablet 10 mg PO QHS fluvoxamine 50 MG tablet 100 mg PO BID oxybutynin chloride 5 MG tablet 5 mg PO BID risperidone 1 MG tablet 1 mg PO 4X/DAY cholecalciferol (vitamin D3) [Vitamin D3] 2,000 UNIT capsule 2,000 unit PO DAILY enalapril maleate 10 mg Tablet 10 mg PO DAILY clonazepam 0.5 mg tablet 1 tab PO BID quetiapine 200 mg tablet 1 tab PO BID lamotrigine 25 mg tablet 1 tab PO DAILY Rx Instructions: AM lamotrigine 100 mg tablet 1 tab PO BID metformin 500 mg tablet 500 mg PO DAILY Qty: 30 0RF glimepiride 1 mg tablet 1 mg PO DAILY Qty: 30 0RF Primary Care Provider: Floyd Guardado Referrals: Floyd Guardado MD [Primary Care Provider] - Disposition Disposition: Home, Self Care
== END 2022-06-23 22:15 | disposition home or self-care (01) ==
LOC: ED 21:59
PROVIDERS: Emergency Provider Student in an Organized Health Care Education/Training Program; PCP Family Medicine; Visit Provider Student in an Organized Health Care Education/Training Program
DX: S91.102A Unspecified open wound of left great toe without damage to nail, initial encounter (principal); S91.101A Unspecified open wound of right great toe without damage to nail, initial encounter; W26.8XXA Contact with other sharp object(s), not elsewhere classified, initial encounter; F84.0 Autistic disorder; R73.03 Prediabetes; Z79.84 Long term (current) use of oral hypoglycemic drugs; Z79.899 Other long term (current) drug therapy; S91.105A Unspecified open wound of left lesser toe(s) without damage to nail, initial encounter; S91.104A Unspecified open wound of right lesser toe(s) without damage to nail, initial encounter
CPT/HCPCS: 99282

== ENCOUNTER 2022-07-02 13:53 | Outpatient (RCR) | payer MEDICARE, MEDICAID, SELFPAY | END 2022-07-17 23:59 | LOC: DC 13:53 | PROVIDERS: PCP Family Medicine; Referring Provider Nurse Practitioner Family; Visit Provider Nurse Practitioner Family | DX: E11.9 Type 2 diabetes mellitus without complications (principal) | CPT/HCPCS: 97802 ==

== ENCOUNTER → 2022-07-08 | Outpatient (CLI) | payer MEDICARE, MEDICAID, SELFPAY ==
[2022-07-08 14:38] LABS: Bacteria 0 SEEN /hpf (None Seen); Mucous, Urine 0 SEEN /hpf (<or=2+); Red Blood Cells-Urine 0 SEEN /hpf (0-5); Squamous Epithelial Cells - UA 0 SEEN /hpf (0-5)
[2022-07-08 15:12] LABS: Color, Urine Straw (Yellow); Glucose, Dipstick 1000 mg/dl (Normal); Ketone-Dipstick Negative (Negative); Leukocyte Esterase-Dipstick 500 /ul (Negative); Nitrite-Dipstick Positive (Negative); Occult Blood-Urine Negative /ul (Negative); Protein-Dipstick 100 mg/dl (Negative); Specific Gravity, Urine 1.015 (1.002-1.030); Urine Bilirubin Dipstick Negative (Negative); Urine Clarity Clear (Clear); Urine Urobilinogen Normal (Normal)
[2022-07-08 15:21] LABS: White Blood Cells 10-25 SEEN /hpf (0-5)
== END | disposition home or self-care (01) ==
LOC: LAB 14:34
PROVIDERS: PCP Family Medicine; Visit Provider Internal Medicine Nephrology
DX: R39.9 Unspecified symptoms and signs involving the genitourinary system (principal)
CPT/HCPCS: 81001

== ENCOUNTER 2022-07-30 10:16 | Outpatient (RCR) | payer MEDICARE, MEDICAID, SELFPAY | END 2022-08-16 23:59 | LOC: DC 10:16 | PROVIDERS: PCP Family Medicine; Referring Provider Nurse Practitioner Family; Visit Provider Nurse Practitioner Family | DX: E11.9 Type 2 diabetes mellitus without complications (principal) | CPT/HCPCS: 97803 ==

== ENCOUNTER → 2022-08-02 | Outpatient (CLI) | payer MEDICARE, MEDICAID, SELFPAY ==
[2022-08-02 17:43] LABS: Absolute Lymphocyte Count 1.05 X10^3/uL (0.83-4.51); Absolute Neutrophil Count 5.2 X10^3/uL (2.0-7.7); Basophil# 0.06 X10^3/uL; Basophil% 0.8 % (0-1); Eosinophil# 0.42 X10^3/uL; Eosinophils% 5.7 % (0-5); Hematocrit 40.3 % (40-54); Hemoglobin 13.5 g/dL (13.0-16.5); Lymphocyte # 1.05 X10^3/ul (0.83-4.51); Lymphocyte % 14.3 % (19-41); Mean Corp Hgb Conc 33.5 g/dL (32-36); Mean Corpuscular Hgb 29.8 pg (27.0-32.0); Mean Platelet Vol. 9.2 fl (6.2-12.0); Monocyte# 0.64 X10^3/uL; Monocyte% 8.7 % (0-10); NRBC Flagged by Analyzer 0 % (0-5); Neutrophil # 5.17 X10^3/uL (2.7-7.7); Neutrophil % 70.2 % (47-70); Platelet Count 219 K/mm3 (150-450); RBC Distribution Width CV 14.6 % (11.6-14.6); RBC Distribution Width SD 46.5 fl (35.1-43.9); Red Blood Count 4.53 M/mm3 (4.6-6.2); White Blood Count 7.4 K/mm3 (4.4-11.0)
[2022-08-02 18:08] LABS: Vitamin D,25 Hydroxy 46.8 ng/mL
[2022-08-02 18:09] LABS: ALB/GLOB Ratio 0.9 RATIO (0.9-2.4); AST(SGOT) 20 U/L (15-37); Alanine Aminotransfer ALT/SGPT 41 U/L (16-61); Albumin, Serum 3.5 g/dL (3.2-5.0); Alkaline Phosphatase 140 U/L (45-117); Anion Gap 9 (5-15); BUN 54 mg/dL (7-18); BUN/Creat Ratio 23.4 RATIO (10-20); Calcium,Total 9.7 mg/dL (8.5-10.1); Chloride 108 mmol/L (98-107); Cholesterol 128 mg/dL (200); Creatinine, Serum 2.31 mg/dL (0.70-1.30); EST Glomerular Filtration Rate 35 mL/min (>60); Est Glom Filt Rate - Afr Amer 42 mL/min (>60); Globulin 4.1 g/dL (2.2-4.2); Glucose 98 mg/dL (74-106); High Density Lipoprotein 34 mg/dL; Potassium 4.5 mmol/L (3.5-5.1); Protein, Total 7.6 g/dL (6.4-8.2); Sodium Level 137 mmol/L (136-145); Triglycerides 264 mg/dL; Very Low Density Lipoprotein 53 mg/dL (5-40)
[2022-08-02 18:12] LABS: Hemoglobin A1c 6.6 % (3.8-5.6)
== END | disposition home or self-care (01) ==
LOC: MFPLAB 14:27
PROVIDERS: PCP Family Medicine; Referring Provider Family Medicine; Visit Provider Family Medicine
DX: E11.9 Type 2 diabetes mellitus without complications (principal)
CPT/HCPCS: 36415; 80053; 80061; 82306; 83036; 85025

== ENCOUNTER → 2022-09-17 | Outpatient (CLI) | payer MEDICARE, MEDICAID, SELFPAY ==
[2022-09-17 08:52] LABS: Hematocrit 43.6 % (40-54); Mean Corp Hgb Conc 34.4 g/dL (32-36); Mean Corpuscular Hgb 30.1 pg (27.0-32.0); Mean Corpuscular Volume 87.6 fL (80-94); Mean Platelet Vol. 8.9 fl (6.2-12.0); Platelet Count 204 K/mm3 (150-450); RBC Distribution Width CV 13.8 % (11.6-14.6); RBC Distribution Width SD 43.8 fl (35.1-43.9); Red Blood Count 4.98 M/mm3 (4.6-6.2); White Blood Count 5.9 K/mm3 (4.4-11.0)
[2022-09-17 09:16] LABS: Hemoglobin A1c 5.7 % (3.8-5.6)
[2022-09-17 09:22] LABS: AST(SGOT) 21 U/L (15-37); Alanine Aminotransfer ALT/SGPT 35 U/L (16-61); Albumin, Serum 3.8 g/dL (3.2-5.0); Alkaline Phosphatase 146 U/L (45-117); Anion Gap 7 (5-15); BUN 43 mg/dL (7-18); BUN/Creat Ratio 16.3 RATIO (10-20); Chloride 106 mmol/L (98-107); Cholesterol 130 mg/dL (200); Creatinine, Serum 2.64 mg/dL (0.70-1.30); EST Glomerular Filtration Rate 30 mL/min (>60); Est Glom Filt Rate - Afr Amer 36 mL/min (>60); Glucose 124 mg/dL (74-106); High Density Lipoprotein 38 mg/dL; Protein, Total 7.8 g/dL (6.4-8.2); Sodium Level 136 mmol/L (136-145); Triglycerides 300 mg/dL; Very Low Density Lipoprotein 60 mg/dL (5-40)
== END | disposition home or self-care (01) ==
LOC: LAB 08:26
PROVIDERS: PCP Family Medicine; Referring Provider Psychiatry & Neurology Child & Adolescent Psychiatry; Visit Provider Psychiatry & Neurology Child & Adolescent Psychiatry
DX: Z79.899 Other long term (current) drug therapy (principal)
CPT/HCPCS: 36415; 80053; 80061; 83036; 85027

== ENCOUNTER 2022-10-01 14:51 | Outpatient (RCR) | payer MEDICARE, MEDICAID, SELFPAY | END 2022-10-16 23:59 | LOC: DC 14:51 | PROVIDERS: PCP Family Medicine; Referring Provider Nurse Practitioner Family; Visit Provider Nurse Practitioner Family | DX: E11.9 Type 2 diabetes mellitus without complications (principal) | CPT/HCPCS: 97803 ==

== ENCOUNTER 2022-10-17 09:32 | Outpatient (CLI) | payer MEDICARE, MEDICAID, SELFPAY ==
[2022-10-17 09:55] LABS: Bacteria 0 SEEN /hpf (None Seen); Mucous, Urine 0 SEEN /hpf (<or=2+); Red Blood Cells-Urine 0 SEEN /hpf (0-5); White Blood Cells 0 SEEN /hpf (0-5)
[2022-10-17 10:43] LABS: Hematocrit 43.3 % (40-54); Hemoglobin 14.2 g/dL (13.0-16.5); Mean Corp Hgb Conc 32.8 g/dL (32-36); Mean Corpuscular Hgb 29.3 pg (27.0-32.0); Mean Corpuscular Volume 89.5 fL (80-94); Platelet Count 207 K/mm3 (150-450); RBC Distribution Width CV 13.9 % (11.6-14.6); RBC Distribution Width SD 44.3 fl (35.1-43.9); Red Blood Count 4.84 M/mm3 (4.6-6.2); White Blood Count 6.7 K/mm3 (4.4-11.0)
[2022-10-17 10:44] LABS: Color, Urine Yellow (Yellow); Glucose, Dipstick 1000 mg/dl (Normal); Ketone-Dipstick Negative (Negative); Leukocyte Esterase-Dipstick Negative /ul (Negative); Nitrite-Dipstick Negative (Negative); Occult Blood-Urine Negative /ul (Negative); Protein-Dipstick 30 mg/dl (Negative); Urine Bilirubin Dipstick Negative (Negative); Urine Clarity Sl. Cloudy (Clear); Urine Urobilinogen Normal (Normal)
[2022-10-17 10:51] LABS: Squamous Epithelial Cells - UA 0-5 SEEN /hpf (0-5)
[2022-10-17 11:05] LABS: Protein, Urine (Random) 55.2 mg/dL (<11.9); Protein:Creat Ratio 776 mg/g CRE (0-200)
[2022-10-17 11:12] LABS: PTHIN 18.3 pg/mL (18.4-80.1)
[2022-10-17 11:14] LABS: Vitamin D,25 Hydroxy 44.7 ng/mL
[2022-10-17 11:32] LABS: Albumin, Serum 3.5 g/dL (3.2-5.0); BUN 46 mg/dL (7-18); BUN/Creat Ratio 17.8 RATIO (10-20); Calcium,Total 9.7 mg/dL (8.5-10.1); Chloride 106 mmol/L (98-107); Creatinine, Serum 2.59 mg/dL (0.70-1.30); EST Glomerular Filtration Rate 31 mL/min (>60); Est Glom Filt Rate - Afr Amer 37 mL/min (>60); Glucose 137 mg/dL (74-106); Phosphorus 3.7 mg/dL (2.5-4.9); Potassium 4.2 mmol/L (3.5-5.1); Sodium Level 138 mmol/L (136-145)
== END 2022-10-17 23:59 | disposition home or self-care (01) ==
LOC: LAB 09:39
PROVIDERS: PCP Family Medicine; Visit Provider Internal Medicine Nephrology
DX: N18.32 Chronic kidney disease, stage 3b (principal); N25.81 Secondary hyperparathyroidism of renal origin; R80.9 Proteinuria, unspecified; D63.1 Anemia in chronic kidney disease; R39.9 Unspecified symptoms and signs involving the genitourinary system
CPT/HCPCS: 36415; 80069; 81001; 81002; 82306; 82570; 83970; 84156; 85027

== ENCOUNTER 2022-10-29 15:04 | Outpatient (RCR) | payer MEDICARE, MEDICAID, SELFPAY | END 2022-11-16 23:59 | LOC: DC 15:04 | PROVIDERS: PCP Family Medicine; Referring Provider Nurse Practitioner Family; Visit Provider Nurse Practitioner Family | DX: E11.9 Type 2 diabetes mellitus without complications (principal) | CPT/HCPCS: 97803 ==

== ENCOUNTER → 2023-01-23 | Outpatient (CLI) | payer MEDICARE, MEDICAID, SELFPAY ==
[2023-01-23 09:56] LABS: Absolute Lymphocyte Count 0.88 X10^3/uL (0.83-4.51); Absolute Neutrophil Count 4.2 X10^3/uL (2.0-7.7); Basophil# 0.05 X10^3/uL; Basophil% 0.8 % (0-1); Eosinophil# 0.38 X10^3/uL; Eosinophils% 6.4 % (0-5); Hematocrit 45.6 % (40-54); Hemoglobin 15.4 g/dL (13.0-16.5); Lymphocyte # 0.88 X10^3/ul (0.83-4.51); Lymphocyte % 14.9 % (19-41); Mean Corp Hgb Conc 33.8 g/dL (32-36); Mean Corpuscular Hgb 29.5 pg (27.0-32.0); Mean Corpuscular Volume 87.4 fL (80-94); Mean Platelet Vol. 9.1 fl (6.2-12.0); Monocyte# 0.43 X10^3/uL; Monocyte% 7.3 % (0-10); NRBC Flagged by Analyzer 0 % (0-5); Neutrophil # 4.15 X10^3/uL (2.7-7.7); Neutrophil % 70.3 % (47-70); Platelet Count 202 K/mm3 (150-450); RBC Distribution Width CV 13.4 % (11.6-14.6); RBC Distribution Width SD 42.7 fl (35.1-43.9); Red Blood Count 5.22 M/mm3 (4.6-6.2); White Blood Count 5.9 K/mm3 (4.4-11.0)
[2023-01-23 10:19] LABS: Microalbumin:Creatinine Ratio 310.6 mg/g CRE (<30 mg/g CRE); Protein, Urine (Random) 39.8 mg/dL (<11.9); Protein:Creat Ratio 503 mg/g CRE (0-200)
[2023-01-23 10:43] LABS: Albumin, Serum 3.6 g/dL (3.2-5.0); BUN 51 mg/dL (7-18); BUN/Creat Ratio 17.8 RATIO (10-20); Creatinine, Serum 2.86 mg/dL (0.70-1.30); EST Glomerular Filtration Rate 27 mL/min (>60); Est Glom Filt Rate - Afr Amer 33 mL/min (>60); Globulin 3.7 g/dL (2.2-4.2); Glucose 145 mg/dL (74-106); Protein, Total 7.3 g/dL (6.4-8.2)
[2023-01-23 10:44] LABS: AST(SGOT) 23 U/L (15-37); Alanine Aminotransfer ALT/SGPT 32 U/L (16-61); Alkaline Phosphatase 126 U/L (45-117); Anion Gap 10 (5-15); Calcium,Total 11.1 mg/dL (8.5-10.1); Chloride 106 mmol/L (98-107); Cholesterol 137 mg/dL (200); High Density Lipoprotein 33 mg/dL; Phosphorus 3.7 mg/dL (2.5-4.9); Sodium Level 136 mmol/L (136-145); Triglycerides 329 mg/dL; Very Low Density Lipoprotein 66 mg/dL (5-40)
[2023-01-23 10:59] LABS: Hemoglobin A1c 5.4 % (3.8-5.6)
== END | disposition home or self-care (01) ==
LOC: MFPLAB 09:03
PROVIDERS: PCP Family Medicine; Referring Provider Family Medicine; Visit Provider Family Medicine
DX: E11.9 Type 2 diabetes mellitus without complications (principal)
CPT/HCPCS: 36415; 80053; 80061; 82043; 82306; 82570; 83036; 84100; 84156; 85025

== ENCOUNTER → 2023-01-28 | Outpatient (CLI) | payer MEDICARE, MEDICAID, SELFPAY ==
[2023-01-28 12:25] LABS: PTHIN 10.3 pg/mL (18.4-80.1)
[2023-01-28 12:30] LABS: Anion Gap 9 (5-15); BUN 48 mg/dL (7-18); BUN/Creat Ratio 19.4 RATIO (10-20); Calcium,Total 11.3 mg/dL (8.5-10.1); Chloride 110 mmol/L (98-107); Creatinine, Serum 2.47 mg/dL (0.70-1.30); EST Glomerular Filtration Rate 32 mL/min (>60); Est Glom Filt Rate - Afr Amer 39 mL/min (>60); Glucose 129 mg/dL (74-106); Potassium 4.1 mmol/L (3.5-5.1); Sodium Level 140 mmol/L (136-145)
== END | disposition home or self-care (01) ==
LOC: MFPLAB 10:45
PROVIDERS: PCP Family Medicine; Visit Provider Family Medicine
DX: E83.52 Hypercalcemia (principal)
CPT/HCPCS: 36415; 80048; 82330; 83970

== ENCOUNTER → 2023-02-05 | Outpatient (CLI) | payer MEDICARE, MEDICAID, SELFPAY ==
[2023-02-05 13:15] LABS: Anion Gap 9 (5-15); BUN 51 mg/dL (7-18); BUN/Creat Ratio 16.5 RATIO (10-20); Calcium,Total 11.8 mg/dL (8.5-10.1); Chloride 109 mmol/L (98-107); EST Glomerular Filtration Rate 25 mL/min (>60); Est Glom Filt Rate - Afr Amer 30 mL/min (>60); Glucose 173 mg/dL (74-106); Potassium 4.3 mmol/L (3.5-5.1); Sodium Level 139 mmol/L (136-145)
== END | disposition home or self-care (01) ==
LOC: MFPLAB 10:09
PROVIDERS: PCP Family Medicine; Referring Provider Family Medicine; Visit Provider Family Medicine
DX: E83.52 Hypercalcemia (principal)
CPT/HCPCS: 36415; 80048

== ENCOUNTER → 2023-02-12 | Outpatient (CLI) | payer MEDICARE, MEDICAID, SELFPAY ==
--- NOTE | 2023-02-12 09:29 | NM_ITS ---
CLINICAL: 32-year-old male with history of hypercalcemia. 99m Tc SESTAMIBI DUAL PHASE PARATHYROID SCINTIGRAPHY COMPARISON: None available FINDINGS: Following the intravenous administration of 25.0 mCi of 99m Tc sestamibi, image acquisitions of the anterior neck at approximately 15 minutes and 3.0 hours post radiopharmaceutical provision reveal: 1. Immediate static blood pool acquisitions demonstrate distribution of the radiopharmaceutical the right-left thyroid colloid. 2. Delayed images depict subtle retention of the radiopharmaceutical defined in the left thyroid bed is otherwise washout of the radiotracer from the previously defined thyroid parenchyma.. NM/Parathyroid Scan IMPRESSION: 1. The subtle persistent increased radiopharmaceutical concentration noted in the region of the left thyroid bed may represent a low-grade parathyroid adenoma. Electronically Signed: Sidney Baxter, at 22:07 EDT ,
== END | disposition home or self-care (01) ==
LOC: NM 09:26
PROVIDERS: PCP Family Medicine; Referring Provider Family Medicine; Visit Provider Family Medicine
DX: E83.52 Hypercalcemia (principal)
CPT/HCPCS: 78070; A9500

== ENCOUNTER → 2023-04-10 | Outpatient (CLI) | payer MEDICARE, MEDICAID, SELFPAY ==
[2023-04-10 11:24] LABS: Hematocrit 42.9 % (40-54); Hemoglobin 14.2 g/dL (13.0-16.5); Mean Corp Hgb Conc 33.1 g/dL (32-36); Mean Corpuscular Hgb 29.3 pg (27.0-32.0); Mean Corpuscular Volume 88.5 fL (80-94); Mean Platelet Vol. 8.9 fl (6.2-12.0); Platelet Count 232 K/mm3 (150-450); RBC Distribution Width CV 13.2 % (11.6-14.6); Red Blood Count 4.85 M/mm3 (4.6-6.2); White Blood Count 4.5 K/mm3 (4.4-11.0)
[2023-04-10 11:49] LABS: PTHIN 30.4 pg/mL (18.4-80.1); Protein, Urine (Random) 36.3 mg/dL (<11.9); Protein:Creat Ratio 530 mg/g CRE (0-200)
[2023-04-10 11:50] LABS: Albumin, Serum 3.4 g/dL (3.2-5.0); BUN 42 mg/dL (7-18); BUN/Creat Ratio 11.7 RATIO (10-20); Calcium,Total 12.3 mg/dL (8.5-10.1); Chloride 108 mmol/L (98-107); Creatinine, Serum 3.59 mg/dL (0.70-1.30); EST Glomerular Filtration Rate 21 mL/min (>60); Est Glom Filt Rate - Afr Amer 25 mL/min (>60); Glucose 147 mg/dL (74-106); Phosphorus 3.2 mg/dL (2.5-4.9); Potassium 4.6 mmol/L (3.5-5.1); Sodium Level 139 mmol/L (136-145)
[2023-04-10 11:51] LABS: Vitamin D,25 Hydroxy 53.1 ng/mL
== END | disposition home or self-care (01) ==
LOC: LAB 10:09
PROVIDERS: PCP Family Medicine; Referring Provider Internal Medicine Nephrology; Visit Provider Internal Medicine Nephrology
DX: N25.81 Secondary hyperparathyroidism of renal origin (principal); R80.9 Proteinuria, unspecified; D63.1 Anemia in chronic kidney disease
CPT/HCPCS: 36415; 80069; 82306; 82570; 83970; 84156; 85027

== ENCOUNTER 2023-05-14 08:10 | Emergency (ER) | payer MEDICARE, MEDICAID, SELFPAY ==
[2023-05-14 08:12] VITALS: BP 175/107; PULSE 116; RESP 22; TEMP 36.6; O2SAT 96; BMI 37.0
--- NOTE | 2023-05-14 08:31 | CT_ITS ---
STUDY: CT ABDOMEN AND PELVIS WITHOUT CONTRAST REASON FOR EXAM: Male, 32 years old. Kidney Stone. 3 day history of flank pain and renal failure. RADIATION DOSAGE (If Supplied By Facility): CTDIvol = ( 21.32 ) mGy, DLP = ( 1241.45 ) mGycm TECHNIQUE: Transaxial images were obtained from the dome of the diaphragm to the symphysis pubis without oral contrast, and without intravenous contrast. Sagittal and coronal images were reconstructed. Individualized dose optimization techniques were used for this CT. COMPARISON: None. FINDINGS: The visualized lung bases are unremarkable. The visualized portions of the heart are within normal limits. Normal liver. Normal gallbladder and extrahepatic biliary system. Normal spleen. Normal pancreas. Normal bilateral adrenal glands. Irregular appearance of both kidneys. Findings are suggestive of multiple bilateral renal cysts. Correlation with ultrasound is recommended. There is a 3.7 mm nonobstructive calculus in the lower pole of the left kidney. There is a small hiatal hernia. Normal small intestine. Normal colon. The appendix is visualized and appears normal. Normal abdominal aorta. Normal inferior vena cava. There is retroperitoneal lymphadenopathy with enlarged nodes greater than 10-15mm in the short axis. Normal urinary bladder. Normal abdominal wall. Minimal anterior listhesis of L5 on S1 secondary to spondylolysis of the pars interarticularis of the L5 vertebrae. CT/Abdomen/Pelvis without Cont IMPRESSION: Diffuse enlargement of retroperitoneal lymphadenopathy. Lymphoma should be ruled out. Nonobstructive S in the lower pole calyx of the left kidney. Heterogeneous appearance of both kidneys suggestive of multiple bilateral renal cysts. Correlation with ultrasound is recommended. Electronically Signed: Alen Figueroa MD at 9:51 EDT ,
--- NOTE | 2023-05-14 08:32 | EDS_ITS ---
HPI History of Present Illness Chief Complaint: Flank Pain Informant: patient and other Narrative Narrative: Autistic patient presents with caregiver from alf nontraumatic left flank pain since yesterday. No nausea or vomiting. No radicular symptoms. No fevers. History of stage III chronic kidney disease with reported nonfunctioning single kidney followed by Dr. Valderrama. Last follow-up 3 weeks ago. Denies history of kidney stones. States had mild symptoms previously however not significant. Denies any decreased urine output. Allergies to Keflex. Prior similar symptoms: No PFSH PFSH Medical History (Updated 05/14/23 @ 11:[address] Mahad Lim, DO) Acute on chronic renal failure Autism Cellulitis of right lower extremity Morbid obesity with BMI of 40.0-44.9, adult mrdd Prediabetes Renal failure Sebaceous cyst Severe sepsis Home Medications acetaminophen 500 mg tablet 1,000 mg PO Q4H PRN Pain 04/28/17 [History Last Taken Unknown] ammonium lactate 12 % lotion (AmLactin) 57 g TP BID 04/28/17 [History Last Taken Unknown] bupropion HCl 75 mg tablet 75 mg PO BID 04/28/17 [History Last Taken Unknown] cholecalciferol (vitamin D3) 50 mcg (2,000 unit) capsule (Vitamin D3) 2,000 unit PO DAILY 04/28/17 [History Last Taken Unknown] fluticasone propionate 50 mcg/actuation blister powder for inhalation (Flovent Diskus) 50 mcg inhalation DAILY 04/28/17 [History Last Taken Unknown] fluvoxamine 50 mg tablet 100 mg PO BID 04/28/17 [History Last Taken Unknown] montelukast 10 mg tablet (Singulair) 10 mg PO QHS 04/28/17 [History Last Taken Unknown] oxybutynin chloride 5 mg tablet 5 mg PO BID 04/28/17 [History Last Taken Unknown] risperidone 1 mg tablet 1 mg PO 4X/DAY 04/28/17 [History Last Taken Unknown] clonazepam 0.5 mg tablet 1 tab PO BID 06/04/22 [History Last Taken Unknown] enalapril maleate 10 mg tablet 10 mg PO DAILY 06/04/22 [History Last Taken Unknown] glimepiride 1 mg tablet 1 mg PO DAILY #30 tabs 06/04/22 [Rx Last Taken Unknown] lamotrigine 100 mg tablet 1 tab PO BID 06/04/22 [History Last Taken Unknown] lamotrigine 25 mg tablet 1 tab PO DAILY 06/04/22 [History Last Taken Unknown] metformin 500 mg tablet 500 mg PO DAILY #30 tabs 06/04/22 [Rx Last Taken Unknown] quetiapine 200 mg tablet 1 tab PO BID 06/04/22 [History Last Taken Unknown] hydrocodone-acetaminophen 5-325mg 5mg-325mg 1 tab PO Q6H PRN PRN Pain 3 days #12 TABLETS 05/14/23 [Rx Last Taken Unknown] Allergy/AdvReac Type Severity Reaction Status Date / Time cephalexin [From Keflex] Allergy Rash Verified 05/14/23 08:15 Surgical History History of excision of mass Social History Smoking Status: Never smoker ROS ROS ED Constitutional Constitutional ED: Denies chills, fever(s) or sweats Eyes Eyes: Denies change in vision ENT ENT ED: Denies dysphagia or sore throat Cardiovascular Cardiovascular: Denies chest pain, leg edema, palpitations or racing heartbeat Respiratory/Chest Respiratory/Chest: Denies cough, dyspnea or dyspnea on exertion Gastrointestinal Gastrointestinal: Denies abdominal pain, diarrhea, nausea or vomiting Genitourinary Genitourinary ED: Denies dysuria, hematuria or urinary frequency Musculoskeletal Musculoskeletal: Reports back pain; Denies extremity pain or neck pain Integumentary Denies rash or wounds Neurologic Neurologic: Denies headache(s), paresthesias or weakness EXAM Physical Exam Const Vital Signs: 05/14/23 08:12 05/14/23 10:10 Temperature 98 F Temperature Source Temporal Pulse Rate 116 H 78 Respiratory Rate 22 H 16 Blood Pressure 175/107 H Blood Pressure Mean 129 Pulse Ox 96 100 Oxygen Delivery Method Room Air Room Air Positive well nourished and well developed General Appearance ED: well developed and NAD HEENT Reports moist mucous membranes normocephalic and atraumatic Eyes PERRL, EOMs intact bilaterally and conjunctivae normal General Eye ED: Yes normal appearance of both eyes Neck no lymphadenopathy and supple General: Negative for tenderness Chest Wall Chest: Negative for tenderness Resp normal respiratory effort and normal air movement Effort and Inspection: symmetric chest movement; Negative for respiratory distress Cardio regular rhythm and no murmurs Rate: tachycardic Peripheral Pulses: pulses 2+ throughout GI normal to inspection, nondistended, normoactive bowel sounds and non-tender Palpation: Negative for guarding or rebound tenderness present Back/Spine no CVA tenderness and no thoracic nor lumbar tenderness Extremity normal to inspection General Extremety ED: Negative for edema or tenderness General Extremity: Negative for edema Neuro oriented x3 and no sensory deficits noted Sensorium / Orientation: awake and alert Skin no rashes or lesions noted and no wounds MDM MDM MDM Narrative Medical decision making narrative: Interventions / MDM: Differential diagnosis: Kidney stone, musculoskeletal, retroperitoneal lymphadenopathy/mass Diagnosis considered but do not suspect: N/A My EKG interpretation: N/A Imaging independently reviewed and interpreted by myself: CT scan abdomen pelvis: Multiple enlarged retroperitoneal adenopathy pathognomonic for lymphoma concerns and discussion with radiologist. External documents reviewed: N/A Test considered but not ordered:N/A ED course: Patient tachycardic uncomfortable renal stone protocol initiated morphine and Zofran fluids started. Avoid NSAIDs due to his chronic kidney disease. Laboratory studies were ordered urine ordered CT scan ordered. CT scan results concerning for lymphoma. This was discussed with radiologist. 1015: I did reach out to heme-onc on-call Dr. Vera, requests to add LDH and LFT. He was made an appointment for 3 PM tomorrow in the office for discussion for evaluation and planned biopsy. Urine leukocytes and slight hematuria culture sent he is asymptomatic. Discharge prescription for [place] to use as needed. Outpatient follow-up as discussed tomorrow. Re-evaluation: stable Disposition discussed with patient/family/significant other: Patient and car egiver Case discussed with consulting clinician: Radiologist and oncologist This note was generated with [employer] dictation software. It may contain incorrect words, spelling, and punctuation that were not noted in checking the note before signing. Lab Data Attestation: I reviewed the patient's lab results. Labs: Laboratory Results - last 24 hr 05/14/23 05/14/23 08:35 10:45 WBC 8.6 RBC 4.55 L Hgb 13.8 Hct 39.6 L MCV 87.0 MCH 30.3 MCHC 34.8 RDW Std Deviation 44.9 H RDW Coeff of Judith 14.3 Plt Count 205 MPV 8.5 Immature Gran % (Auto) 0.400 Neut % (Auto) 83.7 H Lymph % (Auto) 4.6 L [place] % (Auto) 8.5 Eos % (Auto) 2.3 Baso % (Auto) 0.5 Absolute Neuts (auto) 7.2 Absolute Lymphs (auto) 0.39 L Nucleated RBC % 0 Sodium 139 Potassium 3.8 Chloride 109 H Carbon Dioxide 23.0 Anion Gap 7 BUN 39 H Creatinine 3.56 H Estim Creat Clear Calc 32.70 Est GFR (MDRD) Af Amer 26 L Est GFR (MDRD) Non-Af 21 L BUN/Creatinine Ratio 11.0 Glucose 131 H Calcium 12.3 H Total Bilirubin 0.60 Direct Bilirubin 0.23 AST 33 ALT 45 Alkaline Phosphatase 129 H Lactate Dehydrogenase 526 H Total Protein 7.3 Albumin 3.5 Globulin 3.8 Urine Color Yellow Urine Clarity Clear Urine pH 6.0 Ur Specific [place] 1.010 Urine Protein 30 H Urine Glucose (UA) 250 H Urine Ketones Negative Urine Occult Blood 10 H Urine Nitrite Negative Urine Bilirubin Negative Urine Urobilinogen Normal Ur Leukocyte Esterase 25 H Urine RBC 0 SEEN Urine WBC 0-5 SEEN Ur Squamous Epith Cells 0 SEEN Urine Bacteria 0 SEEN Urine Mucus 0 SEEN Radiography Diagnostic Testing: Clinical Impression(s) from Imaging Studies Abdomen/Pelvis CT 05/14/23 08:31 IMPRESSION: Diffuse enlargement of retroperitoneal lymphadenopathy. Lymphoma should be ruled out. Nonobstructive S in the lower pole calyx of the left kidney. Heterogeneous appearance of both kidneys suggestive of multiple bilateral renal cysts. Correlation with ultrasound is recommended. Electronically Signed: Alen Figueroa MD at 9:51 EDT , Discharge Plan Triage Chief Complaint: Flank Pain ED Provider: Mahad Lim Dx/Rx/DC Orders Clinical Impression: Lymphoma, CKD (chronic kidney disease) stage 3, GFR 30-59 ml/min, Left nephrolithiasis, Hematuria Instructions: ED Chronic Kidney Disease (CKD), ED Hematuria, ED Tumor, Uncertain Cause Prescriptions: New hydrocodone-acetaminophen [hydrocodone-acetaminophen] 5-325 mg tablet 1 tab PO Q6H PRN PRN (Reason: Pain) 3 Days Qty: 12 0RF No Action Flovent Diskus 50 MCG blister with device 50 mcg inhalation DAILY ammonium lactate [AmLactin] 57 GM lotion 57 g TP BID acetaminophen 500 MG tablet 1,000 mg PO Q4H PRN (Reason: Pain) bupropion HCl 75 MG tablet 75 mg PO BID montelukast [Singulair] 10 MG tablet 10 mg PO QHS fluvoxamine 50 MG tablet 100 mg PO BID oxybutynin chloride 5 MG tablet 5 mg PO BID risperidone 1 MG tablet 1 mg PO 4X/DAY cholecalciferol (vitamin D3) [Vitamin D3] 2,000 UNIT capsule 2,000 unit PO DAILY enalapril maleate 10 mg Tablet 10 mg PO DAILY clonazepam 0.5 mg tablet 1 tab PO BID quetiapine 200 mg tablet 1 tab PO BID lamotrigine 25 mg tablet 1 tab PO DAILY Rx Instructions: AM lamotrigine 100 mg tablet 1 tab PO BID metformin 500 mg tablet 500 mg PO DAILY Qty: 30 0RF glimepiride 1 mg tablet 1 mg PO DAILY Qty: 30 0RF Primary Care Provider: Floyd Guardado Referrals: Flody Guardado MD [Primary Care Provider] - Rosa Vera MD [Med Staff - Active Staff] - Keep Iain appointment Activity Restrictions/Additional Instructions: Your CT scan concerns for lymphoma. You will need a biopsy. Follow-up with Dr. Jackson at 3 PM tomorrow in the office. This will be coordinated. Use medication for pain as needed. Disposition Disposition: Home, Self Care
[2023-05-14 08:42] LABS: Absolute Lymphocyte Count 0.39 X10^3/uL (0.83-4.51); Absolute Neutrophil Count 7.2 X10^3/uL (2.0-7.7); Basophil# 0.04 X10^3/uL; Basophil% 0.5 % (0-1); Eosinophils% 2.3 % (0-5); Hematocrit 39.6 % (40-54); Hemoglobin 13.8 g/dL (13.0-16.5); Lymphocyte # 0.39 X10^3/ul (0.83-4.51); Lymphocyte % 4.6 % (19-41); Mean Corp Hgb Conc 34.8 g/dL (32-36); Mean Corpuscular Hgb 30.3 pg (27.0-32.0); Mean Platelet Vol. 8.5 fl (6.2-12.0); Monocyte# 0.73 X10^3/uL; Monocyte% 8.5 % (0-10); NRBC Flagged by Analyzer 0 % (0-5); Neutrophil # 7.18 X10^3/uL (2.7-7.7); Neutrophil % 83.7 % (47-70); POSITIVE DIFFERENTIAL YES; Platelet Count 205 K/mm3 (150-450); RBC Distribution Width CV 14.3 % (11.6-14.6); RBC Distribution Width SD 44.9 fl (35.1-43.9); Red Blood Count 4.55 M/mm3 (4.6-6.2); White Blood Count 8.6 K/mm3 (4.4-11.0)
[2023-05-14 08:43] LABS: Differential Indicated SCAN CRITERIA MET
[2023-05-14] MEDS: Ondansetron 4 MG/2 ML Vial IV (08:51)
[2023-05-14] MEDS: Morphine 4 MG/ML Syringe IV (08:51)
[2023-05-14 09:22] LABS: Anion Gap 7 (5-15); BUN 39 mg/dL (7-18); Calcium,Total 12.3 mg/dL (8.5-10.1); Chloride 109 mmol/L (98-107); Creatinine, Serum 3.56 mg/dL (0.70-1.30); EST Glomerular Filtration Rate 21 mL/min (>60); Est Glom Filt Rate - Afr Amer 26 mL/min (>60); Glucose 131 mg/dL (74-106); Potassium 3.8 mmol/L (3.5-5.1); Sodium Level 139 mmol/L (136-145)
[2023-05-14 10:10] VITALS: PULSE 78; RESP 16; O2SAT 100
--- NOTE | 2023-05-14 10:19 | NURSING ---
PAGED DR ARCINIEGA
--- NOTE | 2023-05-14 10:42 | ED.RN ---
this rn took phone call from [facility]. per worker pt has arranged to have an appointment with dr. coats tomorrow 05/15/23 at 1500.
[2023-05-14 10:49] LABS: Bacteria 0 SEEN /hpf (None Seen); Mucous, Urine 0 SEEN /hpf (<or=2+); Red Blood Cells-Urine 0 SEEN /hpf (0-5); Squamous Epithelial Cells - UA 0 SEEN /hpf (0-5)
[2023-05-14 10:56] LABS: Color, Urine Yellow (Yellow); Glucose, Dipstick 250 mg/dl (Normal); Ketone-Dipstick Negative (Negative); Leukocyte Esterase-Dipstick 25 /ul (Negative); Nitrite-Dipstick Negative (Negative); Occult Blood-Urine 10 /ul (Negative); Protein-Dipstick 30 mg/dl (Negative); Urine Bilirubin Dipstick Negative (Negative); Urine Clarity Clear (Clear); Urine Urobilinogen Normal (Normal)
[2023-05-14 10:59] LABS: AST(SGOT) 33 U/L (15-37); Alanine Aminotransfer ALT/SGPT 45 U/L (16-61); Albumin, Serum 3.5 g/dL (3.2-5.0); Alkaline Phosphatase 129 U/L (45-117); Bilirubin, Direct 0.23 mg/dL (0.00-0.30); Globulin 3.8 g/dL (2.2-4.2); Protein, Total 7.3 g/dL (6.4-8.2)
[2023-05-14 11:04] LABS: LDH 526 U/L (87-241)
[2023-05-14 11:35] LABS: White Blood Cells 0-5 SEEN /hpf (0-5)
[2023-05-14 11:48] VITALS: BP 135/76; PULSE 67; RESP 16; TEMP 36.6; O2SAT 100
== END 2023-05-14 12:07 | disposition home or self-care (01) ==
PROVIDERS: Emergency Provider Emergency Medicine; PCP Family Medicine; Visit Provider Emergency Medicine
DX: C85.90 Non-Hodgkin lymphoma, unspecified, unspecified site (principal); E21.0 Primary hyperparathyroidism; N18.30 Chronic kidney disease, stage 3 unspecified; R31.9 Hematuria, unspecified; F84.0 Autistic disorder; Z79.899 Other long term (current) drug therapy; R73.03 Prediabetes; Z79.84 Long term (current) use of oral hypoglycemic drugs; N20.0 Calculus of kidney
CPT/HCPCS: 74176; 80048; 80076; 81001; 81050; 82340; 82570; 83615; 85025; 87077; 87086; 87088; 87186; 96361; 96374; 96375; 99283; J7040; A4216; J2405

== ENCOUNTER → 2023-05-14 | Outpatient (CLI) | payer MEDICARE, MEDICAID, SELFPAY ==
[2023-05-14 09:39] LABS: (24 HR) Urine Calcium 543.2 mg/24 HR (42.0-353.0); 24HR UR TOTAL VOLUME 3550 ml; Calcium Urine pH Range 1; Urine Calcium (Random) 15.3 (Not Estab.)
[2023-05-14 09:40] LABS: 24HR. Urine Creatinine 1.59 g/24 HR (0.90-2.10)
== END | disposition home or self-care (01) ==
LOC: LAB 07:58 → LABSPEC 08:00
PROVIDERS: PCP Family Medicine
DX: E21.0 Primary hyperparathyroidism (principal)
CPT/HCPCS: 81050; 82340; 82570

== ENCOUNTER → 2023-05-19 | Outpatient (CLI) | payer MEDICARE, MEDICAID, SELFPAY ==
--- NOTE | 2023-05-16 | ASPIGT_PTH ---
PATIENT: DANN PALACIOS LOC: [place] U#:[id number] AGE/SX: 32/M ROOM: RE05/19/[address]: Dr. Rosa Vera MD : 1990 BED: DIS: 05/19/2023 SPEC #: [id number] RECD: 05/19/23 12:56 STATUS: MONICA REMisha #: [id number] SUNIL: 05/16/23 00:[address]: Rosa Vera DEPT: SURGICAL PATHOLOGY RECD BY: Marcos Nagy ENTERED: 05/19/23 12:56 SP TYPE: ASP RAD OTHR DR: Dr. 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 See comment. SJ: 05/26/2023 COMMENT The specimen is evaluated at the time of biopsy by Dr. Muñiz. Immediate Evaluation = Atypical lymphocytes present. The specimen is sent to [facility] for expert opinion and reviewed by Dr. Cat and above diagnosis is rendered. The complete report is viewable in patient's EMR. Flow cytometry studies from [facility] show no evidence of B-cell or T-cell lymphoma. The complete report is viewable in patients EMR. Correlation with clinical, radiologic, laboratory findings and appropriate follow up are necessary. This case is discussed with Dr. Vera on 05/26/23. Case has been reviewed in consultation with Dr. Muñiz who concurs with the above diagnosis. IDC:AM MICROSCOPIC DESCRIPTION Slides are reviewed. GROSS DESCRIPTION Received is one container labeled with the patient's name and not further designated. The specimen consists of multiple elongated fragments of olivarez soft tissue that in aggregate measure 1.5 x 0.1 x <0.1 cm. The specimen is totally submitted in one cassette. Six touch imprints are prepared at the time of core biopsy. A core is submitted for flow cytometry study. / SJ:rg 05/19/2023 TC:[address] [facility]: [id number] ADDENDUM ADDENDUM ADDENDUM ADDENDUM ADDENDUM ADDENDUM ADDENDUM ADDENDUM ADDENDUM ADDENDUM 07/24/2023 10:24 ADDENDUM 07/24/2023 10:24 ADDENDUM 07/24/2023 10:24 ADDENDUM 07/24/2023 10:24 ADDENDUM 07/24/2023 10:24 This addendum is added to incorporate an outside pathology consultation report. The case was examined at [facility] (#[id number]) and the following diagnosis was rendered. 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 Please see complete above mentioned consultation report in EMR
[2023-05-19] VITALS (10 sets, daily range): BP systolic 140–161; BP diastolic 90–102; PULSE 73–90; RESP 13–21; TEMP 36.2; O2SAT 95–98; BMI 37.3
[2023-05-19 08:49] LABS: Absolute Lymphocyte Count 0.49 X10^3/uL (0.83-4.51); Absolute Neutrophil Count 3.9 X10^3/uL (2.0-7.7); Basophil# 0.07 X10^3/uL; Basophil% 1.3 % (0-1); Eosinophil# 0.36 X10^3/uL; Eosinophils% 6.5 % (0-5); Hematocrit 41.5 % (40-54); Hemoglobin 13.7 g/dL (13.0-16.5); Lymphocyte # 0.49 X10^3/ul (0.83-4.51); Lymphocyte % 8.9 % (19-41); Mean Corpuscular Hgb 28.9 pg (27.0-32.0); Mean Corpuscular Volume 87.6 fL (80-94); Mean Platelet Vol. 8.3 fl (6.2-12.0); Monocyte# 0.73 X10^3/uL; Monocyte% 13.2 % (0-10); NRBC Flagged by Analyzer 0 % (0-5); Neutrophil # 3.86 X10^3/uL (2.7-7.7); Neutrophil % 69.7 % (47-70); POSITIVE DIFFERENTIAL YES; Platelet Count 234 K/mm3 (150-450); RBC Distribution Width SD 44.7 fl (35.1-43.9); Red Blood Count 4.74 M/mm3 (4.6-6.2); White Blood Count 5.5 K/mm3 (4.4-11.0)
[2023-05-19 08:53] LABS: Differential Indicated SCAN CRITERIA MET
[2023-05-19 08:58] LABS: International Normalized Ratio 1.1; Prothrombin Time (Protime)PT. 14.2 SECONDS (11.7-14.9)
[2023-05-19 08:59] LABS: Partial Thromboplast Time 33.3 Seconds (24.1-36.2)
[2023-05-19] MEDS: Midazolam 2 MG/2 ML Syringe IV (10:07)
[2023-05-19] MEDS: fentaNYL 100 MCG/2 ML Ampul IV (10:10)
--- NOTE | 2023-05-19 10:10 | CT_ITS ---
PROCEDURE: CT GUIDED biopsy of the right retroperitoneal mass. DATE: May 19, 2023. INDICATION: Male, 32 years old. Enlarged retroperitoneal lymphadenopathy. PHYSICIAN: Alen Figueroa M.D. RADIATION DOSAGE (If Supplied By Facility): CTDIvol = ( 22 ) mGy, DLP = ( 934.31 ) mGycm. Individualized dose optimization techniques were utilized. PROCEDURE: The risks, benefits, and alternatives to the procedure were explained to the patient. The specific risk of hemorrhage requiring further treatment or intervention was detailed and accepted. Follow-up instructions were discussed with the patient as well. Written informed consent was obtained. The patient was brought into the CT suite and placed in the prone position. . An appropriate entry site was identified. The overlying skin was prepped and draped in the usual sterile fashion. 1% lidocaine was administered subcutaneously for local anesthesia. Conscious sedation was performed. The patient received 2 mg of Versed and 50 mcg of fentanyl intravenously. Conscious sedation was started at 10:07 AM and terminated at 10:34 AM. Patient was independently monitored by the department. Under CT guidance, a total of 7 passes were performed utilizing an 18-gauge core biopsy needle system. The specimens were then placed in the appropriate fluid and transported to the laboratory for analysis. Hemostasis was obtained. The patient tolerated the procedure well without immediate complications. CT/Biopsy/Inj or Needle Placement IMPRESSION: Successful CT guided right retroperitoneal lymph node biopsy, as described above. Conscious sedation protocol was followed. Electronically Signed: Alen Figueroa MD at 11:05 EDT ,
[2023-05-19] MEDS: Lidocaine 2% (20 ml mdv) 20 ML Vial INFILT (10:24)
== END | disposition home or self-care (01) ==
PROVIDERS: PCP Family Medicine; Referring Provider Internal Medicine Hematology & Oncology; Visit Provider Internal Medicine Hematology & Oncology
DX: Z01.812 Encounter for preprocedural laboratory examination (principal); R59.0 Localized enlarged lymph nodes; R73.03 Prediabetes
CPT/HCPCS: 38505; 36415; 77012; 85025; 85610; 85730; 88172; 88305; 88313; 88325; 99156; J7050; A4216

== ENCOUNTER → 2023-05-26 | Outpatient (CLI) | payer MEDICARE, MEDICAID, SELFPAY ==
--- NOTE | 2023-05-26 15:49 | US_ITS ---
ACR Level 3 findings have been noted. An addendum which confirms receipt of the report will follow. EXAM: US SCROTUM AND US DUPLEX ARTERIAL/VENOUS OF THE TESTICLES, COMPLETE CLINICAL INDICATION: R/O TESTICULAR MASS TECHNIQUE: Realtime ultrasound of the testicles was performed with grayscale analysis. Realtime duplex ultrasound scan of the arterial and venous flow of the scrotal contents with color Doppler flow and spectral waveform analysis. COMPARISON: No relevant prior studies available. FINDINGS: RIGHT TESTICLE: Right testicle is heterogeneous with what appear to be multiple masses replacing the normal parenchyma. Normal arterial flow present in the testicle with monophasic waveforms. The right testicle measures 5.9 x 4.3 x 3.4 cm. LEFT TESTICLE: Unremarkable. Normal in size and echotexture. No focal lesion. Normal arterial flow present in the testicle with monophasic waveforms. EPIDIDYMIDES: Small left epididymal cyst. Normal color Doppler flow pattern in the epididymis. SCROTUM: Small right hydrocele. No varicocele. US/Testicular with Arterial Flow IMPRESSION: 1. Heterogeneous right testicle with multiple masses. 2. Normal left testicle. 3. Small left epididymal cyst. Electronically Signed: Victor M Akers MD at 0:33 EDT ,
[2023-05-26 17:34] LABS: LDH 397 U/L (87-241)
[2023-05-28 05:07] LABS: AFP, Tumor Marker < 1.8 ng/mL (0.0-6.9); HCG BETA-SUBUNIT QUANT. 120 mIU/mL (0-3)
== END | disposition home or self-care (01) ==
LOC: US 15:32
PROVIDERS: PCP Family Medicine; Referring Provider Internal Medicine Hematology & Oncology; Visit Provider Internal Medicine Hematology & Oncology
DX: R59.0 Localized enlarged lymph nodes (principal); R77.2 Abnormality of alphafetoprotein
CPT/HCPCS: 36415; 76870; 82105; 83615; 84702; 93976

== ENCOUNTER → 2023-06-03 | Outpatient (CLI) | payer MEDICARE, MEDICAID, SELFPAY ==
--- NOTE | 2023-06-03 18:32 | CT_ITS ---
INDICATION: STAGING TESTICULAR CANCER -- NO CONTRAST EXAMINATION: CT CHEST WITHOUT CONTRAST - CT Chest W/O Contrast Injection TECHNIQUE: Helically acquired images were obtained of the chest. A radiation dose optimization technique was used for this scan. IV Contrast dosage and agent: None. RADIATION DOSAGE (If Supplied By Facility): CTDIvol = ( 20.14 ) mGy, DLP = ( 769.88 ) mGycm COMPARISON: May 14, 2023 FINDINGS: LUNGS, PLEURA AND LARGE AIRWAYS: There is mild atelectasis in the lingula. Lungs appear otherwise clear. No pleural effusions are noted. No pleural effusion or thickening. No pneumothorax. THYROID: No thyroid lesions. HEART AND PERICARDIUM: Heart size is normal. There is a small pericardial effusion. CORONARY ARTERIES: Coronary artery calcification VESSELS: Thoracic aorta is not dilated. MEDIASTINUM AND SHYAM: No mediastinal or hilar adenopathy. Esophagus is unremarkable. No hiatal hernia. UPPER ABDOMEN: The kidneys appear lobular nature bilaterally possible underlying cysts difficult to evaluate without IV contrast. Extensive retroperitoneal lymphadenopathy is noted also seen on previous abdominal CT which may be related to history of testicular cancer. BONES: No suspicious lytic or blastic abnormality. CT/Chest without Contrast IMPRESSION: Small pericardial effusion. Clinical correlation recommended. Minimal atelectasis in the lingula. Otherwise no active chest disease. Retroperitoneal lymphadenopathy related to history of testicular cancer. Lobular appearing kidneys as described. Electronically Signed: Bassam Barboza, at 12:21 EDT Reading Location ID and State: [address] [place] [address] Tel , Service support ,
== END | disposition home or self-care (01) ==
PROVIDERS: PCP Family Medicine; Referring Provider Internal Medicine Hematology & Oncology; Visit Provider Internal Medicine Hematology & Oncology
DX: C62.90 Malignant neoplasm of unspecified testis, unspecified whether descended or undescended (principal)
CPT/HCPCS: 71250

== ENCOUNTER 2023-06-10 19:18 | Emergency (ER) | payer MEDICARE, MEDICAID, SELFPAY ==
[2023-06-10 19:20] VITALS: BP 166/106; PULSE 107; RESP 20; TEMP 36.3; O2SAT 100; BMI 36.6
[2023-06-10] MEDS: Morphine 4 MG/ML Syringe IM (20:05)
--- NOTE | 2023-06-10 21:41 | EDS_ITS ---
HPI History of Present Illness Chief Complaint: Back Informant: patient and mental health staff Narrative Narrative: Patient recently diagnosed with testicular cancer metastatic. Is prepping to undergo orchiectomy but has not had surgery yet or any other treatment. Has had low back pain for 3 to 4 weeks, has been on hydrocodone, just recently ran out yesterday or today, and his pain is worse. He states that the hydrocodone was not helping a lot anyway. No bowel or bladder dysfunction. No radiation down the legs. Does hurt more to move, but position does not seem to matter. No fevers or chills. No other new symptoms. Denies abdominal pain right now. Prior similar symptoms: Yes and With Prior Back Pain [facility] Medical History Acute on chronic renal failure Autism Cellulitis of right lower extremity Hyperparathyroidism Metastasis to lymph nodes Morbid obesity with BMI of 40.0-44.9, adult mrdd Obstructive uropathy Prediabetes Proteinuria Renal failure Right testicular cancer Sebaceous cyst Severe sepsis Home Medications ammonium lactate 12 % lotion (AmLactin) 57 g TP BID 04/28/17 [History Last Taken Unknown] bupropion HCl 75 mg tablet 75 mg PO BID 04/28/17 [History Last Taken 05/19/23] cholecalciferol (vitamin D3) 50 mcg (2,000 unit) capsule (Vitamin D3) 2,000 unit PO DAILY 04/28/17 [History Last Taken Unknown] fluticasone propionate 50 mcg/actuation blister powder for inhalation (Flovent Diskus) 50 mcg inhalation DAILY 04/28/17 [History Last Taken Unknown] fluvoxamine 50 mg tablet 100 mg PO BID 04/28/17 [History Last Taken Unknown] montelukast 10 mg tablet (Singulair) 10 mg PO QHS 04/28/17 [History Last Taken Unknown] oxybutynin chloride 5 mg tablet 5 mg PO BID 04/28/17 [History Last Taken Unknown] risperidone 1 mg tablet 1 mg PO 4X/DAY 04/28/17 [History Last Taken 05/19/23] clonazepam 0.5 mg tablet 1 tab PO BID 06/04/22 [History Last Taken 05/19/23] glimepiride 1 mg tablet 1 mg PO DAILY #30 tabs 06/04/22 [Rx Last Taken Unknown] lamotrigine 100 mg tablet 1 tab PO BID 06/04/22 [History Last Taken Unknown] lamotrigine 25 mg tablet 1 tab PO DAILY 06/04/22 [History Last Taken Unknown] quetiapine 200 mg tablet 1 tab PO BID 06/04/22 [History Last Taken Unknown] hydrocodone-acetaminophen 5-325mg 5mg-325mg 1 tab PO Q6H PRN PRN Pain 3 days #12 TABLETS 05/14/23 [Rx Last Taken Unknown] dapagliflozin propanediol 10 mg tablet (Farxiga) 10 mg PO DAILY 05/15/23 [History Last Taken Unknown] dulaglutide 0.75 mg/0.5 mL subcutaneous pen injector (Trulicity) 0.75 mg subcut QWEEK 05/15/23 [History Last Taken Unknown] oxycodone-acetaminophen 5 mg-325 mg tablet 1 tab PO Q6H PRN PRN Pain 3 days #10 TABLETS 06/10/23 [Rx Last Taken Unknown] Allergy/AdvReac Type Severity Reaction Status Date / Time cephalexin [From Keflex] Allergy Rash Verified 06/10/23 19:20 Surgical History History of excision of mass Social History adopted: Yes Smoking Status: Never smoker ROS ROS ED Constitutional Constitutional ED: Denies chills or fever(s) Gastrointestinal Gastrointestinal: Denies abdominal pain, constipation, fecal incontinence, nausea or vomiting Genitourinary Genitourinary ED: Reports other Details: no urinary retention ; Denies abdominal discomfort or urinary incontinence Musculoskeletal Musculoskeletal: Reports as per HPI and back pain; Denies neck pain Integumentary Denies rash or wounds Neurologic Neurologic: Denies headache(s), paresthesias or weakness EXAM Physical Exam Const Vital Signs: 06/10/23 19:20 Temperature 97.4 F L Temperature Source Temporal Pulse Rate 107 H Respiratory Rate 20 H Blood Pressure 166/106 H Blood Pressure Mean 126 Pulse Ox 100 Oxygen Delivery Method Room Air Positive well nourished and well developed General Appearance ED: well developed and NAD HEENT Negative for trauma or tenderness Eyes PERRL and EOMs intact bilaterally Neck full ROM and supple Resp normal respiratory effort GI normal to inspection, nondistended, normoactive bowel sounds, soft to palpation and non-tender Back/Spine normal to inspection Back/Spine Narrative: Normal range of motion does not appear to be in discomfort doing so. Normal inspection no rash. Mild diffuse lumbar tenderness bilaterally. No CVA tenderness. Lumbar Spine / Lower Back: paraspinal muscle tenderness and straight leg raise negative bilaterally; Negative for lumbar spinal tenderness Extremity normal to inspection, full ROM and no pedal edema Neuro oriented x3 and no sensory deficits noted Sensorium / Orientation: alert Motor Exam: strength 5/5 throughout and clonus absent Deep Tendon Reflexes: Rt Patellar (L4): 2+, Lt Patellar (L4): 2+, Rt Ankle (S1): 2+ and Lt Ankle (S1): 2+ Deep Tendon Reflexes Back: Rt Patellar (L4): 2+, Lt Patellar (L4): 2+, Rt Ankle (S1): 2+ and Lt Ankle (S1): 2+ Plantar Reflex: Downgoing: bilateral Psych mental status grossly normal and thought process normal Skin no rashes or lesions noted and no wounds MDM MDM MDM Narrative Medical decision making narrative: Given a dose of morphine which really helped his discomfort. I reviewed outpatient records. He had a CT from April of the abdomen/pelvis, it showed no spine lesions but a significant amount of retroperitoneal lymphadenopathy which I am guessing is causing his pain. He does not have any neurologic symptoms or new symptoms right now, this is all chronic so I do not think he needs repeat advanced imaging, he has follow-up scheduled for multiple physicians including oncology and urology. Will prescribe him a short course of pain medication. Discharge Plan Triage Chief Complaint: Back ED Provider: Gucci Major Dx/Rx/DC Orders Clinical Impression: Low back pain, Right testicular cancer, Lymphadenopathy, retroperitoneal Instructions: ED Back Pain (Acute or Chronic) Prescriptions: New oxycodone-acetaminophen [oxycodone-acetaminophen] 5-325 mg tablet 1 tab PO Q6H PRN PRN (Reason: Pain) 3 Days Qty: 10 0RF No Action Farxiga 10 mg tablet 10 mg PO DAILY Trulicity 0.75 mg/0.5 mL pen injector 0.75 mg subcut QWEEK Flovent Diskus 50 MCG blister with device 50 mcg inhalation DAILY ammonium lactate [AmLactin] 57 GM lotion 57 g TP BID bupropion HCl 75 MG tablet 75 mg PO BID montelukast [Singulair] 10 MG tablet 10 mg PO QHS fluvoxamine 50 MG tablet 100 mg PO BID oxybutynin chloride 5 MG tablet 5 mg PO BID risperidone 1 MG tablet 1 mg PO 4X/DAY cholecalciferol (vitamin D3) [Vitamin D3] 2,000 UNIT capsule 2,000 unit PO DAILY clonazepam 0.5 mg tablet 1 tab PO BID quetiapine 200 mg tablet 1 tab PO BID lamotrigine 25 mg tablet 1 tab PO DAILY Rx Instructions: AM lamotrigine 100 mg tablet 1 tab PO BID glimepiride 1 mg tablet 1 mg PO DAILY Qty: 30 0RF Hold Instructions: MD Ordered hydrocodone-acetaminophen [hydrocodone-acetaminophen] 5-325 mg tablet 1 tab PO Q6H PRN PRN (Reason: Pain) 3 Days Qty: 12 0RF Primary Care Provider: Floyd Guardado Referrals: Floyd Guardado MD [Primary Care Provider] - 3-5 Days if not improving (and/or your other physicians) Disposition Disposition: Home, Self Care
== END 2023-06-10 22:01 | disposition home or self-care (01) ==
PROVIDERS: Emergency Provider Emergency Medicine; PCP Family Medicine; Visit Provider Emergency Medicine
DX: M54.50 Low back pain, unspecified (principal); R59.9 Enlarged lymph nodes, unspecified; Z85.47 Personal history of malignant neoplasm of testis; N18.9 Chronic kidney disease, unspecified; Z79.899 Other long term (current) drug therapy
CPT/HCPCS: 96372; 99282

== ENCOUNTER 2023-06-20 12:12 | Emergency (ER) | payer MEDICARE, MEDICAID, SELFPAY ==
[2023-06-20 10:43] VITALS: BP 166/131; PULSE 88; RESP 18; TEMP 35.7; O2SAT 100; BMI 33.3
[2023-06-20] MEDS: Lactated Ringers 1,000 ML 15 ML IV (10:49)
[2023-06-20 11:48] VITALS: BP 161/112
[2023-06-20 11:51] LABS: Bedside Glucose 94 mg/dL (74-106)
[2023-06-20 12:13] VITALS: BP 149/106; PULSE 85; RESP 18; TEMP 36.9; O2SAT 99; BMI 32.8
[2023-06-20 12:25] VITALS: BP 163/118; PULSE 90; RESP 18
--- NOTE | 2023-06-20 12:37 | EKG12_ITS ---
Test Reason : HIGH BP Blood Pressure : / mmHG Vent. Rate : 079 BPM Atrial Rate : 079 BPM P-R Int : 168 ms QRS Dur : 096 ms QT Int : 364 ms P-R-T Axes : 023 057 043 degrees QTc Int : 417 ms Normal sinus rhythm Normal ECG Confirmed by SHIRA ANDREWS, RAISA ([id number]), visual effects editor MANDI BEAULIEU ([id number]) on 06/23/2023 1:11:32 PM Referred By: Confirmed By:RAISA SILVA MD
--- NOTE | 2023-06-20 12:38 | EX.ED.DYSGE1 ---
HPI History of Present Illness Chief Complaint: Hypertension Informant: patient and parent Narrative Narrative: Patient sent up from surgery secondary to hypertension. Patient was brought in today for right orchiectomy for right testicular cancer. Patient's blood pressure was reportedly elevated. They gave him 5 mg of IV labetalol. When this did not improve the patient's blood pressure I am told it was a decision between anesthesia and the surgeon that they would cancel the procedure. Parents were told that he would need to be started on a blood pressure medicine and have his surgery rescheduled. Mother does state that he had previously been on a blood pressure medicine and this was stopped in April due to his kidney disease. He is not currently on any blood pressure medicine. [facility] Medical History Acute on chronic renal failure Anxiety Autism Back pain Bladder disease Cellulitis of right lower extremity CPAP (continuous positive airway pressure) dependence Diabetes Dietary restriction Hx of testicular biopsy Hyperparathyroidism Lives in independent detention Metastasis to lymph nodes Morbid obesity with BMI of 40.0-44.9, adult mrdd Non-smoker Obstructive uropathy OCD (obsessive compulsive disorder) Prediabetes Proteinuria Right testicular cancer Sebaceous cyst Severe sepsis Shortness of breath on exertion Wears glasses Home Medications ammonium lactate 12 % lotion (AmLactin) 57 g TP BID 04/28/17 [History Last Taken Unknown] bupropion HCl 75 mg tablet 75 mg PO BID 04/28/17 [History Last Taken 06/20/23] cholecalciferol (vitamin D3) 50 mcg (2,000 unit) capsule (Vitamin D3) 2,000 unit PO DAILY 04/28/17 [History Last Taken Unknown] fluvoxamine 50 mg tablet 100 mg PO BID 04/28/17 [History Last Taken 06/20/23] montelukast 10 mg tablet (Singulair) 10 mg PO QHS 04/28/17 [History Last Taken Unknown] oxybutynin chloride 5 mg tablet 5 mg PO BID 04/28/17 [History Last Taken Unknown] risperidone 1 mg tablet 1 mg PO 4X/DAY 04/28/17 [History Last Taken 06/20/23] clonazepam 0.5 mg tablet 1 tab PO BID 06/04/22 [History Last Taken 06/20/23] glimepiride 1 mg tablet 1 mg PO DAILY #30 tabs 06/04/22 [Rx Last Taken Unknown] lamotrigine 100 mg tablet 1 tab PO BID 06/04/22 [History Last Taken Unknown] lamotrigine 25 mg tablet 1 tab PO DAILY 06/04/22 [History Last Taken Unknown] quetiapine 200 mg tablet 1 tab PO BID 06/04/22 [History Last Taken 06/20/23] dapagliflozin propanediol 10 mg tablet (Farxiga) 10 mg PO DAILY 05/15/23 [History Last Taken Unknown] dulaglutide 0.75 mg/0.5 mL subcutaneous pen injector (Trulicity) 0.75 mg subcut QWEEK 05/15/23 [History Last Taken Unknown] oxycodone-acetaminophen 5 mg-325 mg tablet 1 tab PO Q6H PRN PRN Pain 3 days #10 TABLETS 06/10/23 [Rx Last Taken Unknown] amlodipine 2.5 mg tablet 2.5 mg PO DAILY #30 tabs 06/20/23 [Rx Last Taken Unknown] hydrocodone-acetaminophen 5-325mg 5mg-325mg 1 tab PO Q6H PRN PRN Pain 3 days #10 TABLETS 06/20/23 [Rx Last Taken Unknown] Allergy/AdvReac Type Severity Reaction Status Date / Time cephalexin [From Keflex] Allergy Rash Verified 06/20/23 12:16 Surgical History History of excision of mass History of nasal surgery Social History adopted: Yes Smoking Status: Never smoker ROS ROS ED ROS Narrative Patient resting with his eyes closed. History obtained from parents at bedside. EXAM Physical Exam Const Vital Signs: 06/20/23 12:13 06/20/23 12:25 Temperature 98.4 F Temperature Source Temporal Pulse Rate 85 90 Respiratory Rate 18 18 Blood Pressure 149/106 H 163/118 H Blood Pressure Mean 120 133 Pulse Ox 99 Oxygen Delivery Method Room Air Room Air Positive well nourished and well developed General Appearance ED: well developed HEENT Reports moist mucous membranes Neck no lymphadenopathy Chest Wall inspection of chest normal and palpation of chest normal Resp normal respiratory effort and clear to auscultation bilaterally Cardio regular rate and regular rhythm GI non-tender Palpation: soft Extremity normal to inspection Neuro Neuro Narrative: No focal neurologic deficits. MDM MDM MDM Narrative Medical decision making narrative: Patient is placed on family engagement specialist. EKG obtained to evaluate for cardiac arrhythmia/ischemia. Labwork obtained to evaluate for leukocytosis, anemia, and electrolyte derangement. Patient given 10 mg of IV labetalol. Lab Data Attestation: I reviewed the patient's lab results. Labs: Laboratory Results - last 24 hr 06/20/23 12:43 WBC 5.3 RBC 4.45 L Hgb 12.7 L Hct 38.6 L MCV 86.7 MCH 28.5 MCHC 32.9 RDW Std Deviation 43.8 RDW Coeff of Judith 13.8 Plt Count 264 MPV 8.5 Immature Gran % (Auto) 0.400 Neut % (Auto) 75.4 H Lymph % (Auto) 7.7 L Rowan % (Auto) 12.0 H Eos % (Auto) 3.6 Baso % (Auto) 0.9 Absolute Neuts (auto) 4.0 Absolute Lymphs (auto) 0.41 L Nucleated RBC % 0 Differential Comment SCANNED Sodium 138 Potassium 3.6 Chloride 106 Carbon Dioxide 23.0 Anion Gap 9 BUN 34 H Creatinine 3.25 H Estim Creat Clear Calc 37.94 Est GFR (MDRD) Af Amer 28 L Est GFR (MDRD) Non-Af 24 L BUN/Creatinine Ratio 10.5 Glucose 87 Calcium 11.0 H EKG Initial EKG: Attestation: I personally reviewed and interpreted this EKG as follows: Interpretation: Sinus Rhythm (Sinus at 79 with no acute ischemia.) Treatment and Re-Evaluation :: CBC reveals normal white count with a hemoglobin of 12.7. Chemistry studies reveal a BUN of 34 and a creatinine of 3.25. This is consistent with his baseline values. Patient systolic pressure is now in the 140s. I spoke with the patient's primary care physician, Dr. Guardado. He states the patient has recently been in the office and his blood pressure on June 13 was 128/88. He asked that we start the patient on amlodipine 2.5 mg. We will just do low-dose medication at this time given his renal failure as well as his normal blood pressure in the office. Patient is also complaining of pain in his right lower back which she has had since his cancer was diagnosed. I will write him a short course of [place]. We did discuss importance of monitoring for constipation. When I spoke with her Sly, he asked the family just call the office to have his surgery rescheduled. He will notify his office staff that the surgery needs to be rescheduled. Discharge Plan Triage Chief Complaint: Hypertension ED Provider: Candace Banuelos Dx/Rx/DC Orders Clinical Impression: Back pain, Testicular cancer, Hypertension Instructions: ED Back Pain (Acute or Chronic), ED Hypertension New Begin Treatment Prescriptions: New hydrocodone-acetaminophen 5-325 mg tablet 1 tab PO Q6H PRN PRN (Reason: Pain) 3 Days Qty: 10 0RF amlodipine 2.5 mg tablet 2.5 mg PO DAILY Qty: 30 0RF No Action Farxiga 10 mg tablet 10 mg PO DAILY Trulicity 0.75 mg/0.5 mL pen injector 0.75 mg subcut QWEEK ammonium lactate [AmLactin] 57 GM lotion 57 g TP BID bupropion HCl 75 MG tablet 75 mg PO BID montelukast [Singulair] 10 MG tablet 10 mg PO QHS fluvoxamine 50 MG tablet 100 mg PO BID oxybutynin chloride 5 MG tablet 5 mg PO BID risperidone 1 MG tablet 1 mg PO 4X/DAY cholecalciferol (vitamin D3) [Vitamin D3] 2,000 UNIT capsule 2,000 unit PO DAILY clonazepam 0.5 mg tablet 1 tab PO BID quetiapine 200 mg tablet 1 tab PO BID lamotrigine 25 mg tablet 1 tab PO DAILY Rx Instructions: AM lamotrigine 100 mg tablet 1 tab PO BID glimepiride 1 mg tablet 1 mg PO DAILY Qty: 30 0RF Hold Instructions: Ordered oxycodone-acetaminophen [oxycodone-acetaminophen] 5-325 mg tablet 1 tab PO Q6H PRN PRN (Reason: Pain) 3 Days Qty: 10 0RF Primary Care Provider: Floyd Guardado Referrals: Dandre Heart MD [Med Staff - Active Staff] - As soon as possible Floyd Guardado MD [Primary Care Provider] - 1-2 Weeks Activity Restrictions/Additional Instructions: Please call Dr. Heart's office to have Paul's surgery rescheduled. Disposition Disposition: Home, Self Care
[2023-06-20 12:51] LABS: Absolute Lymphocyte Count 0.41 X10^3/uL (0.83-4.51); Basophil# 0.05 X10^3/uL; Basophil% 0.9 % (0-1); Eosinophil# 0.19 X10^3/uL; Eosinophils% 3.6 % (0-5); Hematocrit 38.6 % (40-54); Hemoglobin 12.7 g/dL (13.0-16.5); Lymphocyte # 0.41 X10^3/ul (0.83-4.51); Lymphocyte % 7.7 % (19-41); Mean Corp Hgb Conc 32.9 g/dL (32-36); Mean Corpuscular Hgb 28.5 pg (27.0-32.0); Mean Corpuscular Volume 86.7 fL (80-94); Mean Platelet Vol. 8.5 fl (6.2-12.0); Monocyte# 0.64 X10^3/uL; NRBC Flagged by Analyzer 0 % (0-5); Neutrophil # 4.02 X10^3/uL (2.7-7.7); Neutrophil % 75.4 % (47-70); POSITIVE DIFFERENTIAL YES; Platelet Count 264 K/mm3 (150-450); RBC Distribution Width CV 13.8 % (11.6-14.6); RBC Distribution Width SD 43.8 fl (35.1-43.9); Red Blood Count 4.45 M/mm3 (4.6-6.2); White Blood Count 5.3 K/mm3 (4.4-11.0)
[2023-06-20] MEDS: Labetalol (Prefilled) 20 MG/4 ML 10 MG IV (12:53)
[2023-06-20 13:01] LABS: Differential Indicated SCAN CRITERIA MET
[2023-06-20 13:03] LABS: Anion Gap 9 (5-15); BUN 34 mg/dL (7-18); BUN/Creat Ratio 10.5 RATIO (10-20); Chloride 106 mmol/L (98-107); Creatinine, Serum 3.25 mg/dL (0.70-1.30); EST Glomerular Filtration Rate 24 mL/min (>60); Est Glom Filt Rate - Afr Amer 28 mL/min (>60); Estimated Creatinine Clearance 37.94 ml/min; Glucose 87 mg/dL (74-106); Potassium 3.6 mmol/L (3.5-5.1); Sodium Level 138 mmol/L (136-145)
[2023-06-20 13:22] LABS: Differential Comment SCANNED
[2023-06-20 14:13] VITALS: BP 158/96; PULSE 78; RESP 16
== END 2023-06-20 14:13 | disposition home or self-care (01) ==
PROVIDERS: Urology; Emergency Provider Emergency Medicine; PCP Family Medicine; Visit Provider Emergency Medicine
DX: I10 Essential (primary) hypertension (principal); E11.9 Type 2 diabetes mellitus without complications; M54.9 Dorsalgia, unspecified; Z85.47 Personal history of malignant neoplasm of testis; Z99.89 Dependence on other enabling machines and devices; Z79.85 Long-term (current) use of injectable non-insulin antidiabetic drugs
CPT/HCPCS: 80048; 82962; 85025; 93005; 96374; 99283; A4216

== ENCOUNTER 2023-06-24 16:57 | Emergency (ER) | payer MEDICARE, MEDICAID, SELFPAY ==
[2023-06-24 16:58] VITALS: BP 110/65; PULSE 79; RESP 14; TEMP 36.8; O2SAT 94; BMI 33.8
--- NOTE | 2023-06-24 17:46 | EDS_ITS ---
HPI History of Present Illness Chief Complaint: Male Pain/Injury Informant: patient and parent Pain Onset: Weeks Context: Gradual Onset Timing: Continuous Worsened by: Nothing Relieved by: Hydrocodone Urinary Symptoms Genitourinary Symptoms: No Symptoms Narrative Narrative: Patient presents with back pain that became worse today. Patient ran out of his pain pills today. Patient describes his pain as sharp. Patient states the pain is over his lower back. Patient has a history of testicular cancer and was scheduled to have a radical orchiectomy recently. This was canceled due to elevated blood pressure on the day of surgery. Patient was started on amlodipine and is planning to have the surgery rescheduled. Patient states his pain became worse today. Patient denies any trauma or injury. Patient denies any fevers or chills. Patient denies any urinary complaints. [facility] Medical History Acute on chronic renal failure Anxiety Autism Back pain Bladder disease Cellulitis of right lower extremity CPAP (continuous positive airway pressure) dependence Diabetes Dietary restriction Hx of testicular biopsy Hyperparathyroidism Lives in independent care home Metastasis to lymph nodes Morbid obesity with BMI of 40.0-44.9, adult mrdd Non-smoker Obstructive uropathy OCD (obsessive compulsive disorder) Prediabetes Proteinuria Right testicular cancer Sebaceous cyst Severe sepsis Shortness of breath on exertion Wears glasses Home Medications ammonium lactate 12 % lotion (AmLactin) 57 g TP BID 04/28/17 [History Last Taken Unknown] bupropion HCl 75 mg tablet 75 mg PO BID 04/28/17 [History Last Taken 06/20/23] cholecalciferol (vitamin D3) 50 mcg (2,000 unit) capsule (Vitamin D3) 2,000 unit PO DAILY 04/28/17 [History Last Taken Unknown] fluvoxamine 50 mg tablet 100 mg PO BID 04/28/17 [History Last Taken 06/20/23] montelukast 10 mg tablet (Singulair) 10 mg PO QHS 04/28/17 [History Last Taken Unknown] oxybutynin chloride 5 mg tablet 5 mg PO BID 04/28/17 [History Last Taken Unknown] risperidone 1 mg tablet 1 mg PO 4X/DAY 04/28/17 [History Last Taken 06/20/23] clonazepam 0.5 mg tablet 1 tab PO BID 06/04/22 [History Last Taken 06/20/23] glimepiride 1 mg tablet 1 mg PO DAILY #30 tabs 06/04/22 [Rx Last Taken Unknown] lamotrigine 100 mg tablet 1 tab PO BID 06/04/22 [History Last Taken Unknown] lamotrigine 25 mg tablet 1 tab PO DAILY 06/04/22 [History Last Taken Unknown] quetiapine 200 mg tablet 1 tab PO BID 06/04/22 [History Last Taken 06/20/23] dapagliflozin propanediol 10 mg tablet (Farxiga) 10 mg PO DAILY 05/15/23 [History Last Taken Unknown] dulaglutide 0.75 mg/0.5 mL subcutaneous pen injector (Trulicity) 0.75 mg subcut QWEEK 05/15/23 [History Last Taken Unknown] oxycodone-acetaminophen 5 mg-325 mg tablet 1 tab PO Q6H PRN PRN Pain 3 days #10 TABLETS 06/10/23 [Rx Last Taken Unknown] amlodipine 2.5 mg tablet 2.5 mg PO DAILY #30 tabs 06/20/23 [Rx Last Taken Unknown] hydrocodone-acetaminophen 5-325mg 5mg-325mg 1 tab PO Q6H PRN PRN Pain 3 days #10 TABLETS 06/20/23 [Rx Last Taken Unknown] hydrocodone-acetaminophen 5-325mg 5mg-325mg 1 tab PO Q6H PRN PRN Pain 3 days #10 TABLETS 06/24/23 [Rx Last Taken Unknown] sulfamethoxazole 800 mg-trimethoprim 160 mg tablet 1 tab PO BID #6 TABLETS 06/24/23 [Rx Last Taken Unknown] Allergy/AdvReac Type Severity Reaction Status Date / Time cephalexin [From Keflex] Allergy Rash Verified 06/24/23 16:58 Surgical History History of excision of mass History of nasal surgery Social History adopted: Yes Smoking Status: Never smoker ROS ROS ED Constitutional Constitutional ED: Denies chills or fever(s) Eyes Eyes: Denies blurry vision or change in vision ENT ENT ED: Denies rhinorrhea or sore throat Cardiovascular Cardiovascular: Denies chest pain or palpitations Respiratory/Chest Respiratory/Chest: Denies cough or dyspnea Gastrointestinal Gastrointestinal: Denies nausea or vomiting Genitourinary Genitourinary ED: Denies dysuria or hematuria Musculoskeletal Musculoskeletal: Reports back pain; Denies neck pain Integumentary Denies abscess or rash Neurologic Neurologic: Denies headache(s) or weakness Allergic/Immunologic Allergic/Immunologic ED: Denies mouth swelling or urticaria EXAM Physical Exam Const Vital Signs: 06/24/23 16:58 Temperature 98.2 F Temperature Source Temporal Pulse Rate 79 Respiratory Rate 14 Blood Pressure 110/65 Blood Pressure Mean 80 Pulse Ox 94 Oxygen Delivery Method Room Air Positive well nourished, well developed and obese General Appearance ED: well developed and NAD Nutritional Appearance: obese HEENT Reports moist mucous membranes Neck supple and no JVD GI non-tender Palpation: soft no CVA tenderness Back/Spine Back/Spine Narrative: There is some mild tenderness over the lower lumbar paraspinal muscles bilaterally. There is no midline tenderness. There is no bony crepitance or step-off. Range of motion was limited in all motions of the lumbar spine secondary to pain. Straight leg raises were negative bilaterally. Strength is 5/5 bilaterally in the lower extremities. There are no sensory deficits noted. Extremity normal to inspection General Extremety ED: Negative for edema or tenderness General Extremity: Negative for edema Neuro oriented x3, CN's II-XII intact bilaterally, moves all extremities, no focal motor deficits and no sensory deficits noted Sensorium / Orientation: alert Motor Exam: strength 5/5 throughout Psych Mood & Affect: depressed MDM MDM MDM Narrative Medical decision making narrative: Differential diagnosis includes lumbosacral strain, urinary tract infection, and pyelonephritis. Urinalysis will be obtained to assess for urinary tract infection and pyelonephritis. Patient has had multiple CT scans which showed some retroperitoneal lymphadenopathy. I do not feel these need to be repeated at this time. Lab Data Attestation: I reviewed the patient's lab results. Lab results narrative: Urinalysis was reviewed. There is a leukocyte esterase of 500 with 25-50 white blood cells and 2+ bacteria. The remainder is within normal limits. Labs: Laboratory Results - last 24 hr 06/24/23 17:58 Urine Color Yellow Urine Clarity Sl. Cloudy Urine pH 6.0 Ur Specific [place] 1.020 Urine Protein 100 H Urine Glucose (UA) 1000 H Urine Ketones Negative Urine Occult Blood 25 H Urine Nitrite Negative Urine Bilirubin Negative Urine Urobilinogen Normal Ur Leukocyte Esterase 500 H Urine RBC 0-5 SEEN Urine WBC 25-50 SEEN Ur Squamous Epith Cells 0 SEEN Urine Bacteria 2+ Urine Mucus 0 SEEN Treatment and Re-Evaluation Narrative: Patient was given injection of morphine here. Patient is resting comfortably on reevaluation. Patient and caregiver were advised of the findings. Urine culture was ordered. Patient was given a dose of Bactrim here. Patient was given a prescription for Bactrim and a refill of his [place] prescription. Patient was instructed to follow-up with his urologist and primary care physician in 5 to 7 days. Patient was instructed return if worse in any way. Patient and caregiver understood and were agreeable with the plan. All questi ons were answered. Discharge Plan Triage Chief Complaint: Male Pain/Injury ED Provider: Simeon Cobos Dx/Rx/DC Orders Clinical Impression: Urinary tract infection, Back pain, Testicular cancer Instructions: ED Bladder Infection, Male (Adult) Prescriptions: New hydrocodone-acetaminophen [hydrocodone-acetaminophen] 5-325 mg tablet 1 tab PO Q6H PRN PRN (Reason: Pain) 3 Days Qty: 10 0RF sulfamethoxazole-trimethoprim [sulfamethoxazole-trimethoprim] 800-160 mg tablet 1 tab PO BID Qty: 6 0RF No Action Farxiga 10 mg tablet 10 mg PO DAILY Trulicity 0.75 mg/0.5 mL pen injector 0.75 mg subcut QWEEK ammonium lactate [AmLactin] 57 GM lotion 57 g TP BID bupropion HCl 75 MG tablet 75 mg PO BID montelukast [Singulair] 10 MG tablet 10 mg PO QHS fluvoxamine 50 MG tablet 100 mg PO BID oxybutynin chloride 5 MG tablet 5 mg PO BID risperidone 1 MG tablet 1 mg PO 4X/DAY cholecalciferol (vitamin D3) [Vitamin D3] 2,000 UNIT capsule 2,000 unit PO DAILY clonazepam 0.5 mg tablet 1 tab PO BID quetiapine 200 mg tablet 1 tab PO BID lamotrigine 25 mg tablet 1 tab PO DAILY Rx Instructions: AM lamotrigine 100 mg tablet 1 tab PO BID glimepiride 1 mg tablet 1 mg PO DAILY Qty: 30 0RF Hold Instructions: Ordered oxycodone-acetaminophen [oxycodone-acetaminophen] 5-325 mg tablet 1 tab PO Q6H PRN PRN (Reason: Pain) 3 Days Qty: 10 0RF hydrocodone-acetaminophen 5-325 mg tablet 1 tab PO Q6H PRN PRN (Reason: Pain) 3 Days Qty: 10 0RF amlodipine 2.5 mg tablet 2.5 mg PO DAILY Qty: 30 0RF Primary Care Provider: Floyd Guardado Referrals: Dandre Heart MD [Med Staff - Active Staff] - 5-7 Days Floyd Guardado MD [Primary Care Provider] - 5-7 Days Disposition Disposition: Home, Self Care
[2023-06-24] MEDS: Morphine 4 MG/ML Syringe IM (17:58)
--- NOTE | 2023-06-24 18:01 | ED.RN ---
Patient ambulatory to bathroom, gait steady. Urine collected and sent to lab. Medicated per order.
[2023-06-24 18:06] LABS: Mucous, Urine 0 SEEN /hpf (<or=2+); Squamous Epithelial Cells - UA 0 SEEN /hpf (0-5)
[2023-06-24 18:08] LABS: Color, Urine Yellow (Yellow); Glucose, Dipstick 1000 mg/dl (Normal); Ketone-Dipstick Negative (Negative); Leukocyte Esterase-Dipstick 500 /ul (Negative); Nitrite-Dipstick Negative (Negative); Occult Blood-Urine 25 /ul (Negative); Protein-Dipstick 100 mg/dl (Negative); Urine Bilirubin Dipstick Negative (Negative); Urine Clarity Sl. Cloudy (Clear); Urine Urobilinogen Normal (Normal)
[2023-06-24 18:32] LABS: Bacteria 2+ /hpf (None Seen); Red Blood Cells-Urine 0-5 SEEN /hpf (0-5); White Blood Cells 25-50 SEEN /hpf (0-5)
[2023-06-24] MEDS: Smz/Tmp Ds Tablet 1 TABLET PO (19:02)
[2023-06-24 19:05] VITALS: BP 138/78; PULSE 66; RESP 16
== END 2023-06-24 19:07 | disposition home or self-care (01) ==
PROVIDERS: Emergency Provider Emergency Medicine; PCP Family Medicine; Visit Provider Emergency Medicine
DX: N39.0 Urinary tract infection, site not specified (principal); C62.90 Malignant neoplasm of unspecified testis, unspecified whether descended or undescended
CPT/HCPCS: 81001; 87077; 87086; 87088; 87186; 96372; 99282; A4216

== ENCOUNTER → 2023-07-25 | Outpatient (CLI) | payer MEDICARE, MEDICAID, SELFPAY ==
[2023-07-25 15:37] LABS: Cholesterol 121 mg/dL (200); High Density Lipoprotein 61 mg/dL; Triglycerides 87 mg/dL; Very Low Density Lipoprotein 17 mg/dL (5-40)
[2023-07-25 15:38] LABS: Vitamin D,25 Hydroxy 45.3 ng/mL
[2023-07-25 15:41] LABS: Hemoglobin A1c 5.2 % (3.8-5.6)
== END | disposition home or self-care (01) ==
LOC: MFPLAB 13:46
PROVIDERS: PCP Family Medicine; Visit Provider Family Medicine
DX: E11.22 Type 2 diabetes mellitus with diabetic chronic kidney disease (principal); E55.9 Vitamin D deficiency, unspecified
CPT/HCPCS: 36415; 80061; 82306; 83036

== ENCOUNTER 2023-08-26 09:20 | Outpatient (CLI) | payer MEDICARE, MEDICAID, SELFPAY ==
[2023-08-26 09:51] VITALS: BP 113/59; PULSE 106; RESP 16; TEMP 36.1; O2SAT 96; BMI 37.6
[2023-08-26 11:19] VITALS: BP 110/62; PULSE 101; RESP 16; TEMP 36.1; O2SAT 96
[2023-08-26 12:16] VITALS: BP 120/65; PULSE 116; RESP 16; TEMP 36.3; O2SAT 96
== END 2023-08-26 09:21 | disposition home or self-care (01) ==
LOC: MEDOUTP 09:21
PROVIDERS: PCP Family Medicine; Referring Provider Internal Medicine Hematology & Oncology; Visit Provider Internal Medicine Hematology & Oncology
DX: N18.9 Chronic kidney disease, unspecified (principal); D63.1 Anemia in chronic kidney disease
CPT/HCPCS: 36430; 86850; 86900; 86901; 86920; 86922; P9016; A4216

== ENCOUNTER → 2023-09-19 | Outpatient (CLI) | payer MEDICARE, MEDICAID, SELFPAY ==
[2023-09-19 15:46] LABS: Hematocrit 27.3 % (40-54); Hemoglobin 8.6 g/dL (13.0-16.5); Mean Corp Hgb Conc 31.5 g/dL (32-36); Mean Corpuscular Hgb 29.9 pg (27.0-32.0); Mean Corpuscular Volume 94.8 fL (80-94); Mean Platelet Vol. 8.2 fl (6.2-12.0); POSITIVE MORPHOLOGY YES; Platelet Count 212 K/mm3 (150-450); RBC Distribution Width CV 24.2 % (11.6-14.6); RBC Distribution Width SD 77.2 fl (35.1-43.9); Red Blood Count 2.88 M/mm3 (4.6-6.2); White Blood Count 10.4 K/mm3 (4.4-11.0)
[2023-09-19 16:07] LABS: Albumin, Serum 3.8 g/dL (3.2-5.0); BUN 51 mg/dL (7-18); BUN/Creat Ratio 21.7 RATIO (10-20); Calcium,Total 9.2 mg/dL (8.5-10.1); Chloride 110 mmol/L (98-107); Creatinine, Serum 2.35 mg/dL (0.70-1.30); EST Glomerular Filtration Rate 34 mL/min (>60); Est Glom Filt Rate - Afr Amer 41 mL/min (>60); Glucose 198 mg/dL (74-106); Potassium 4.6 mmol/L (3.5-5.1); Sodium Level 140 mmol/L (136-145)
[2023-09-19 16:13] LABS: Vitamin D,25 Hydroxy 42.6 ng/mL
[2023-09-19 16:18] LABS: Protein, Urine (Random) 16.5 mg/dL (<11.9); Protein:Creat Ratio 1100 mg/g CRE (0-200)
[2023-09-19 16:21] LABS: Scan Indicated on CBC? Y/N YES- FLAGS NOTED
[2023-09-22 08:39] LABS: PTHIN 152.8 pg/mL (18.4-80.1)
== END | disposition home or self-care (01) ==
LOC: LAB 15:26
PROVIDERS: PCP Family Medicine; Visit Provider Internal Medicine Nephrology
DX: N18.32 Chronic kidney disease, stage 3b (principal); D63.1 Anemia in chronic kidney disease
CPT/HCPCS: 36415; 80069; 82306; 82570; 83970; 84156; 85027

== ENCOUNTER 2023-09-26 07:57 | Outpatient (CLI) | payer MEDICARE, MEDICAID, SELFPAY ==
[2023-09-26] VITALS (8 sets, daily range): BP systolic 112–124; BP diastolic 50–70; PULSE 81–96; RESP 16–18; TEMP 35.5–36.5; O2SAT 100; BMI 34.1
[2023-09-26] MEDS: 0.9% Normal Saline (500mL Bag) 500 ML 15 ML IV (08:25)
[2023-09-26] MEDS: 0.9% NaCl Peripheral Flush Adult/Peds IV (13:05)
== END 2023-09-26 07:58 | disposition home or self-care (01) ==
LOC: MEDOUTP 07:58
PROVIDERS: PCP Family Medicine; Referring Provider Internal Medicine Hematology & Oncology; Visit Provider Internal Medicine Hematology & Oncology
DX: D64.9 Anemia, unspecified (principal)
CPT/HCPCS: 36430; 86850; 86900; 86901; 86920; 86922; J7040; P9016; A4216

== ENCOUNTER → 2023-10-02 | Outpatient (CLI) | payer MEDICARE, MEDICAID, SELFPAY ==
[2023-10-02 12:24] LABS: Hematocrit 25.3 % (40-54); Hemoglobin 8.1 g/dL (13.0-16.5); Mean Corpuscular Hgb 30.3 pg (27.0-32.0); Mean Corpuscular Volume 94.8 fL (80-94); Mean Platelet Vol. 10.3 fl (6.2-12.0); POSITIVE COUNT YES; POSITIVE DIFFERENTIAL YES; POSITIVE MORPHOLOGY YES; Platelet Count 102 K/mm3 (150-450); RBC Distribution Width CV 20.6 % (11.6-14.6); RBC Distribution Width SD 64.1 fl (35.1-43.9); Red Blood Count 2.67 M/mm3 (4.6-6.2)
[2023-10-02 12:29] LABS: Differential Indicated MANUAL DIFF
[2023-10-02 12:39] LABS: ALB/GLOB Ratio 1.1 RATIO (0.9-2.4); AST(SGOT) 24 U/L (15-37); Alanine Aminotransfer ALT/SGPT 43 U/L (16-61); Albumin, Serum 3.6 g/dL (3.2-5.0); Alkaline Phosphatase 176 U/L (45-117); Anion Gap 8 (5-15); BUN 26 mg/dL (7-18); BUN/Creat Ratio 10.9 RATIO (10-20); Calcium,Total 9.4 mg/dL (8.5-10.1); Chloride 106 mmol/L (98-107); Cholesterol 116 mg/dL (200); Creatinine, Serum 2.38 mg/dL (0.70-1.30); EST Glomerular Filtration Rate 34 mL/min (>60); Est Glom Filt Rate - Afr Amer 41 mL/min (>60); Globulin 3.3 g/dL (2.2-4.2); Glucose 99 mg/dL (74-106); High Density Lipoprotein 43 mg/dL; Phosphorus 2.6 mg/dL (2.5-4.9); Potassium 3.4 mmol/L (3.5-5.1); Protein, Total 6.9 g/dL (6.4-8.2); Sodium Level 141 mmol/L (136-145); Triglycerides 198 mg/dL; Very Low Density Lipoprotein 40 mg/dL (5-40)
[2023-10-02 12:49] LABS: Microalbumin:Creatinine Ratio 368.3 mg/g CRE (<30 mg/g CRE)
[2023-10-02 12:56] LABS: Vitamin D,25 Hydroxy 56.2 ng/mL
[2023-10-02 13:01] LABS: Hemoglobin A1c 5.3 % (3.8-5.6)
[2023-10-02 13:04] LABS: Lymphocyte 11 % (19-41); Metamyelocyte 3 % (0-1); Monocyte 3 % (0-10); Myelocyte 12 % (0-0); Neutrophil-Band 13 % (0-5); Neutrophil-Segmented 51 % (47-70); Nucleated Red Bld Cells,Manual 3 % (0-5); Promyelocyte 2 % (0-0); Total Cells Counted 100 (MANUAL DIFF)
[2023-10-02 13:05] LABS: Anisocytosis 2+; Macrocytosis 1+; Microcytosis 1+
[2023-10-02 13:06] LABS: Absolute Lymphocyte Count 0.66 X10^3/uL (0.83-4.51); Absolute Neutrophil Count 3.8 X10^3/uL (2.0-7.7); Platelet Estimate ADEQUATE (ADEQ)
[2023-10-02 13:07] LABS: Blast 5 % (0-0)
[2023-10-06 09:48] LABS: Pathologist Review Reviewed
== END | disposition home or self-care (01) ==
LOC: MTLAB 09:47
PROVIDERS: PCP Family Medicine; Visit Provider Family Medicine
DX: E11.22 Type 2 diabetes mellitus with diabetic chronic kidney disease (principal)
CPT/HCPCS: 36415; 80053; 80061; 82043; 82306; 82570; 83036; 84100; 85025

== ENCOUNTER → 2023-10-15 | Outpatient (CLI) | payer MEDICARE, MEDICAID, SELFPAY ==
[2023-10-15 10:44] LABS: Hematocrit 28.7 % (40-54); Hemoglobin 8.7 g/dL (13.0-16.5); Mean Corp Hgb Conc 30.3 g/dL (32-36); Mean Corpuscular Hgb 32.1 pg (27.0-32.0); Mean Corpuscular Volume 105.9 fL (80-94); Mean Platelet Vol. 8.8 fl (6.2-12.0); POSITIVE MORPHOLOGY YES; Platelet Count 200 K/mm3 (150-450); RBC Distribution Width CV 27.1 % (11.6-14.6); Red Blood Count 2.71 M/mm3 (4.6-6.2); White Blood Count 3.7 K/mm3 (4.4-11.0)
[2023-10-15 10:48] LABS: Protein, Urine (Random) 19.6 mg/dL (<11.9); Protein:Creat Ratio 445 mg/g CRE (0-200)
[2023-10-15 10:55] LABS: RBC Distribution Width SD 100.6 fl (35.1-43.9); Scan Indicated on CBC? Y/N YES- FLAGS NOTED
[2023-10-15 10:59] LABS: PTHIN 61.3 pg/mL (18.4-80.1)
[2023-10-15 11:01] LABS: Albumin, Serum 3.6 g/dL (3.2-5.0); BUN 31 mg/dL (7-18); BUN/Creat Ratio 11.8 RATIO (10-20); Calcium,Total 9.4 mg/dL (8.5-10.1); Chloride 105 mmol/L (98-107); Creatinine, Serum 2.62 mg/dL (0.70-1.30); EST Glomerular Filtration Rate 30 mL/min (>60); Est Glom Filt Rate - Afr Amer 36 mL/min (>60); Glucose 107 mg/dL (74-106); Phosphorus 3.9 mg/dL (2.5-4.9); Sodium Level 140 mmol/L (136-145)
[2023-10-15 11:02] LABS: Vitamin D,25 Hydroxy 41.4 ng/mL
[2023-10-15 11:23] LABS: Differential Comment SCANNED
== END | disposition home or self-care (01) ==
LOC: LAB 09:52
PROVIDERS: PCP Family Medicine; Referring Provider Internal Medicine Nephrology; Visit Provider Internal Medicine Nephrology
DX: N18.32 Chronic kidney disease, stage 3b (principal); D63.1 Anemia in chronic kidney disease
CPT/HCPCS: 36415; 80069; 82306; 82570; 83970; 84156; 85027

== ENCOUNTER → 2023-12-30 | Outpatient (CLI) | payer MEDICARE, MEDICAID, SELFPAY ==
[2023-12-30 12:40] LABS: Absolute Lymphocyte Count 0.52 X10^3/uL (0.83-4.51); Absolute Neutrophil Count 2.6 X10^3/uL (2.0-7.7); Basophil# 0.03 X10^3/uL; Basophil% 0.8 % (0-1); Eosinophil# 0.37 X10^3/uL; Eosinophils% 9.4 % (0-5); Hematocrit 41.6 % (40-54); Hemoglobin 13.5 g/dL (13.0-16.5); Lymphocyte # 0.52 X10^3/ul (0.83-4.51); Lymphocyte % 13.2 % (19-41); Mean Corp Hgb Conc 32.5 g/dL (32-36); Mean Corpuscular Hgb 30.3 pg (27.0-32.0); Mean Corpuscular Volume 93.3 fL (80-94); Mean Platelet Vol. 9.2 fl (6.2-12.0); Monocyte# 0.38 X10^3/uL; Monocyte% 9.7 % (0-10); NRBC Flagged by Analyzer 0 % (0-5); Neutrophil # 2.62 X10^3/uL (2.7-7.7); Neutrophil % 66.6 % (47-70); POSITIVE DIFFERENTIAL YES; Platelet Count 195 K/mm3 (150-450); RBC Distribution Width CV 14.3 % (11.6-14.6); RBC Distribution Width SD 48.6 fl (35.1-43.9); Red Blood Count 4.46 M/mm3 (4.6-6.2); White Blood Count 3.9 K/mm3 (4.4-11.0)
[2023-12-30 12:45] LABS: Hemoglobin A1c 5.2 % (3.8-5.6)
[2023-12-30 12:47] LABS: Protein, Urine (Random) 113.1 mg/dL (<11.9); Protein:Creat Ratio 1851 mg/g CRE (0-200)
[2023-12-30 12:51] LABS: AST(SGOT) 23 U/L (15-37); Alanine Aminotransfer ALT/SGPT 31 U/L (16-61); Albumin, Serum 3.6 g/dL (3.2-5.0); Alkaline Phosphatase 160 U/L (45-117); Anion Gap 12 (5-15); BUN 38 mg/dL (7-18); BUN/Creat Ratio 15.3 RATIO (10-20); Calcium,Total 9.6 mg/dL (8.5-10.1); Chloride 106 mmol/L (98-107); Cholesterol 142 mg/dL (200); Creatinine, Serum 2.48 mg/dL (0.70-1.30); EST Glomerular Filtration Rate 32 mL/min (>60); Est Glom Filt Rate - Afr Amer 39 mL/min (>60); Globulin 3.7 g/dL (2.2-4.2); Glucose 126 mg/dL (74-106); High Density Lipoprotein 39 mg/dL; Phosphorus 3.3 mg/dL (2.5-4.9); Potassium 3.7 mmol/L (3.5-5.1); Protein, Total 7.3 g/dL (6.4-8.2); Sodium Level 141 mmol/L (136-145); Triglycerides 270 mg/dL; Very Low Density Lipoprotein 54 mg/dL (5-40)
[2023-12-30 13:01] LABS: Vitamin D,25 Hydroxy 41.4 ng/mL
== END | disposition home or self-care (01) ==
LOC: MFPLAB 09:58
PROVIDERS: PCP Family Medicine; Visit Provider Family Medicine
DX: E11.22 Type 2 diabetes mellitus with diabetic chronic kidney disease (principal); E55.9 Vitamin D deficiency, unspecified
CPT/HCPCS: 36415; 80053; 80061; 82306; 82570; 83036; 84100; 84156; 85025

== ENCOUNTER 2024-02-16 13:37 | Emergency (ER) | payer MEDICARE, MEDICAID, SELFPAY ==
[2024-02-16 13:38] VITALS: BP 149/94; PULSE 103; RESP 20; TEMP 36.7; O2SAT 96; BMI 30.4
[2024-02-16 13:41] VITALS: BP 149/94; PULSE 103; RESP 20; TEMP 36.7; O2SAT 96
--- NOTE | 2024-02-16 13:50 | RAD_ITS ---
STUDY: X-RAY - RIGHT ELBOW REASON FOR EXAM: Male, 33 years old. Elbow pain after bowling. TECHNIQUE: 3 view(s) of the elbow. COMPARISON: None. FINDINGS: Normal visualized humerus, radius and ulna. Normal radiocapitellar and ulnotrochlear articulations. Focal soft tissue swelling over the proximal extensor region of the forearm. Findings may represent bursitis. RAD/Elbow min 3 Views IMPRESSION: Focal soft tissue swelling which may represent bursitis. Electronically Signed: Gene Egan MD at 14:11 EDT ,
[2024-02-16] MEDS: Ibuprofen 400 MG Tablet 800 MG PO (14:06)
--- NOTE | 2024-02-16 14:17 | EDS_ITS ---
HPI History of Present Illness HPI Narrative: Patient complaining of right elbow pain after bowling on Friday. No fall or trauma. No fever or redness. No prior history. He is right-hand dominant. Chief Complaint: Upper Extremity Injury Informant: patient Occured/Mechanism Mechanism/Context: No injury and No blunt trauma Onset/Context/Timing Onset: Days Context: Gradual Onset Timing: Continuous Quality of Pain: Dull and Aching Current Severity: Mild Maximum Severity: Mild Associated Symptoms Associated Symptoms: Negative for Parasthesia, Weakness or Loss of Funtion Narrative Narrative: [id number] 33-year-old male has a history of testicular CA, end-stage renal disease placed, diabetes and he lives at home with a lot of assistance due to patient due to developmental delay and cognitive impairment. Reportedly bold this week and now complaining of right elbow pain. No reported history of injury or trauma. No prior surgery. No fever. Prior similar symptoms: No Recent Illness/Hospitalization: No PFSH PFSH Medical History Acute on chronic renal failure Anxiety Autism Back pain Bladder disease Cellulitis of right lower extremity CPAP (continuous positive airway pressure) dependence Diabetes Dietary restriction Hx of testicular biopsy Hyperparathyroidism Lives in independent fci Metastasis to lymph nodes Morbid obesity with BMI of 40.0-44.9, adult mrdd Non-smoker Obstructive uropathy OCD (obsessive compulsive disorder) Prediabetes Proteinuria Right testicular cancer Sebaceous cyst Severe sepsis Shortness of breath on exertion Wears glasses Home Medications ammonium lactate 12 % lotion (AmLactin) 57 g TP BID 04/28/17 [History Last Taken Unknown] bupropion HCl 75 mg tablet 75 mg PO BID 04/28/17 [History Last Taken 06/20/23] cholecalciferol (vitamin D3) 50 mcg (2,000 unit) capsule (Vitamin D3) 2,000 unit PO DAILY 04/28/17 [History Last Taken Unknown] fluvoxamine 50 mg tablet 100 mg PO BID 04/28/17 [History Last Taken 06/20/23] montelukast 10 mg tablet (Singulair) 10 mg PO QHS 04/28/17 [History Last Taken Unknown] oxybutynin chloride 5 mg tablet 5 mg PO BID 04/28/17 [History Last Taken Unknown] risperidone 1 mg tablet 1 mg PO 4X/DAY 04/28/17 [History Last Taken 06/20/23] clonazepam 0.5 mg tablet 1 tab PO BID 06/04/22 [History Last Taken 06/20/23] glimepiride 1 mg tablet 1 mg PO DAILY #30 tabs 06/04/22 [Rx Last Taken Unknown] lamotrigine 100 mg tablet 1 tab PO BID 06/04/22 [History Last Taken Unknown] lamotrigine 25 mg tablet 1 tab PO DAILY 06/04/22 [History Last Taken Unknown] quetiapine 200 mg tablet 1 tab PO BID 06/04/22 [History Last Taken 06/20/23] dapagliflozin propanediol 10 mg tablet (Farxiga) 10 mg PO DAILY 05/15/23 [History Last Taken Unknown] dulaglutide 0.75 mg/0.5 mL subcutaneous pen injector (Trulicity) 0.75 mg subcut QWEEK 05/15/23 [History Last Taken Unknown] oxycodone-acetaminophen 5 mg-325 mg tablet 1 tab PO Q6H PRN PRN Pain 3 days #10 TABLETS 06/10/23 [Rx Last Taken Unknown] amlodipine 2.5 mg tablet 2.5 mg PO DAILY #30 tabs 06/20/23 [Rx Last Taken Unknown] hydrocodone-acetaminophen 5-325mg 5mg-325mg 1 tab PO Q6H PRN PRN Pain 3 days #10 TABLETS 06/20/23 [Rx Last Taken Unknown] hydrocodone-acetaminophen 5-325mg 5mg-325mg 1 tab PO Q6H PRN PRN Pain 3 days #10 TABLETS 06/24/23 [Rx Last Taken Unknown] fluticasone propionate 50 mcg/actuation nasal spray,suspension 1 spray intranasal BID 02/16/24 [History Last Taken Unknown] Allergy/AdvReac Type Severity Reaction Status Date / Time cephalexin [From Keflex] Allergy Rash Verified 02/16/24 13:41 Surgical History History of excision of mass History of nasal surgery Social History adopted: Yes Smoking Status: Never smoker ROS ROS ED ROS Narrative Denies recent illness. No fever. Review of Systems ROS Unobtainable: Denies due to encephalopathy Constitutional Constitutional ED: Denies chills or fever(s) Eyes Eyes: Denies blurry vision ENT ENT ED: Denies ear pain Cardiovascular Cardiovascular: Denies chest pain Respiratory/Chest Respiratory/Chest: Denies cough or dyspnea Gastrointestinal Gastrointestinal: Denies abdominal pain Genitourinary Genitourinary ED: Denies dysuria or hematuria Musculoskeletal Musculoskeletal: Denies back pain, myalgias or neck pain Integumentary Denies abscess or Abrasions Neurologic Neurologic: Denies headache(s) Psychiatric Psychiatric: Denies anxiety or depression Endocrine Endocrinology: Denies cold intolerance Hematologic/Lymphatic Hematologic/Lymphatic: Denies easy bleeding, easy bruising or lymphadenopathy Allergic/Immunologic Allergic/Immunologic ED: Denies mouth swelling, tongue swelling or urticaria EXAM Physical Exam Narrative Exam Narrative: Well-appearing 33-year-old male. Vital signs stable afebrile. His temperature initially is 98.1 I retook it myself or only it was 98.0. No fever. Does not look septic or toxic. HEENT exam unremarkable. Neck nontender no lymphadenopathy. Lungs clear to auscultation bilaterally. Heart regular rhythm rate about 100 no murmur. Abdomen soft nontender. Moving all 4 extremities. He has diffuse tenderness around his right elbow. There is no redness or warmth. No significant swelling. He is able to do flexion extension supination and pronation. There is no gross bony deformity. No signs of a septic joint or cellulitis. His right shoulder is nontender. There is no axillary lymphadenopathy. There is no significant swelling to his right arm. Forearm is nontender. Normal radial pulse. 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 Wrist is nontender. Left elbow is a large bursitis but is nontender nor is it red. That is chronic. Moving both lower extremities. Neurologically is awake and alert. Answering questions and following commands. Const Vital Signs: 02/16/24 13:38 02/16/24 13:41 Temperature 98.1 F 98.1 F Temperature Source Temporal Temporal Pulse Rate 103 H 103 H Respiratory Rate 20 H 20 H Blood Pressure 149/94 H 149/94 H Blood Pressure Mean 112 112 Pulse Ox 96 96 Oxygen Delivery Method Room Air Room Air Positive well nourished, well developed and obese; Negative for cachectic, contractures or unkempt General Appearance ED: well developed and NAD; Negative for unkempt, cachectic, contractures, cyanotic or diaphoretic Nutritional Appearance: obese; Negative for cachectic HEENT Reports moist mucous membranes normocephalic and atraumatic; Negative for trauma or tenderness Eyes PERRL and EOMs intact bilaterally General Eye ED: Negative for other Neck full ROM and supple General: Negative for tenderness Lymph Lymphatic: Negative for other Chest Wall inspection of chest normal and palpation of chest normal Chest: Negative for other Resp normal respiratory effort and clear to auscultation bilaterally Effort and Inspection: Negative for pain with movement Auscultation: Negative for rales, rhonchi, wheezes or diminished lung sounds Cardio regular rate, regular rhythm, S1 normal heart sound, S2 normal heart sound and no murmurs Rate: Negative for bradycardia or tachycardic Rhythm: Negative for abnormal rhythm GI non-tender, non-distended and no masses Inspection: Negative for abdominal distention Auscultation: normoactive bowel sounds Palpation: soft; Negative for tender, guarding or rebound tenderness present Bladder / Kidney Exam: No other Back/Spine no CVA tenderness General Back: Negative for CVA tenderness Cervical Spine: Negative for cervical spine tenderness Thoracic Spine / Upper Back: Negative for thoracic spinal tenderness Lumbar Spine / Lower Back: Negative for lumbar spinal tenderness Extremity full ROM; Negative for normal to inspection Extremity Narrative: Diffuse tenderness right elbow. No deformity. No redness or warmth. No septic joint. No bursitis specifically. This may be tendinitis. Able to flex and extend the elbow. Shoulder is nontender. No axillary lymphadenopathy. Forearm nontender. Nonswollen. Normal radial pulse. 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 General Extremety ED: Negative for edema or other findings General Extremity: Negative for edema or other findings Neuro moves all extremities and no focal motor deficits Sensorium / Orientation: alert, oriented to person and oriented to place Motor Exam: strength 5/5 throughout Psych mental status grossly normal Appearance: Negative for unkempt Attitude: No agitated Mood & Affect: Negative for depressed, anxious or tearful Skin General Skin Exam: Negative for petechiae Lesions: no lesions Rashes: no rashes Trauma: no lacerations or abrasions; Negative for abrasion, laceration or puncture MDM MDM MDM Narrative Medical decision making narrative: 33-year-old male with right elbow pain after bowling on Friday. There is no signs of trauma. There is no signs of infection. There is no swelling of the arm. X-ray was obtained shows no acute abnormality. There may be soft tissue swelling consistent with a bursitis or may be secondary to tendinitis. Ice to the area. Motrin for pain and swelling. Tylenol. Follow-up if not improving or return if worse or any signs of infection. He does not need any labs at this time. Nothing needs to be drained or injected. Radiography Diagnostic Testing: Clinical Impression(s) from Imaging Studies Elbow X-Ray 02/16/24 13:50 IMPRESSION: Focal soft tissue swelling which may represent bursitis. Electronically Signed: Gene Egan MD at 14:11 EDT Reading Location ID and State: [address] [place] [address] , Service support , Discharge Plan Triage Chief Complaint: Upper Extremity Injury ED Provider: Augusto Barrera Dx/Rx/DC Orders Clinical Impression: Tendinitis, CKD (chronic kidney disease) stage 3, GFR 30-59 ml/min, History of diabetes mellitus Instructions: ED Tendonitis Prescriptions: No Action Farxiga 10 mg tablet 10 mg PO DAILY Trulicity 0.75 mg/0.5 mL pen injector 0.75 mg subcut QWEEK ammonium lactate [AmLactin] 57 GM lotion 57 g TP BID bupropion HCl 75 MG tablet 75 mg PO BID montelukast [Singulair] 10 MG tablet 10 mg PO QHS fluvoxamine 50 MG tablet 100 mg PO BID oxybutynin chloride 5 MG tablet 5 mg PO BID risperidone 1 MG tablet 1 mg PO 4X/DAY cholecalciferol (vitamin D3) [Vitamin D3] 2,000 UNIT capsule 2,000 unit PO DAILY clonazepam 0.5 mg tablet 1 tab PO BID quetiapine 200 mg tablet 1 tab PO BID lamotrigine 25 mg tablet 1 tab PO DAILY Rx Instructions: AM lamotrigine 100 mg tablet 1 tab PO BID glimepiride 1 mg tablet 1 mg PO DAILY Qty: 30 0RF Hold Instructions: Ordered oxycodone-acetaminophen [oxycodone-acetaminophen] 5-325 mg tablet 1 tab PO Q6H PRN PRN (Reason: Pain) 3 Days Qty: 10 0RF hydrocodone-acetaminophen 5-325 mg tablet 1 tab PO Q6H PRN PRN (Reason: Pain) 3 Days Qty: 10 0RF amlodipine 2.5 mg tablet 2.5 mg PO DAILY Qty: 30 0RF hydrocodone-acetaminophen [hydrocodone-acetaminophen] 5-325 mg tablet 1 tab PO Q6H PRN PRN (Reason: Pain) 3 Days Qty: 10 0RF fluticasone propionate 50 mcg/actuation spray,suspension 1 spray INTRANASAL BID Primary Care Provider: Floyd Guardado Referrals: Floyd Guardado MD [Primary Care Provider] - 1 Week if not improving Activity Restrictions/Additional Instructions: X-ray looked good. I think this is inflammation of his elbow most likely a tendonitis. Ice to the elbow. Motrin for pain and inflammation. Tylenol for pain. This should progressively get better. If not follow-up with his primary care physician. If you see significant redness or develops a fever or it is getting worse he needs to have it reevaluated. At this time it appears to be inflammation and not any infection.
[2024-02-16 14:31] VITALS: BP 140/80; PULSE 98; RESP 20; TEMP 36.7; O2SAT 96
== END 2024-02-16 14:35 | disposition home or self-care (01) ==
LOC: ED 14:18
PROVIDERS: Emergency Provider Emergency Medicine; PCP Family Medicine; Visit Provider Emergency Medicine
DX: M77.8 Other enthesopathies, not elsewhere classified (principal); N18.6 End stage renal disease; E11.22 Type 2 diabetes mellitus with diabetic chronic kidney disease; Z85.47 Personal history of malignant neoplasm of testis; F41.9 Anxiety disorder, unspecified; F42.9 Obsessive-compulsive disorder, unspecified; Z79.899 Other long term (current) drug therapy; Z79.84 Long term (current) use of oral hypoglycemic drugs; X58.XXXA Exposure to other specified factors, initial encounter; Y93.54 Activity, bowling
CPT/HCPCS: 73080; 99282

== ENCOUNTER 2024-05-05 08:31 | Outpatient (CLI) | payer MEDICARE, MEDICAID, SELFPAY ==
[2024-05-05 08:38] LABS: Mucous, Urine 0 SEEN /hpf (<or=2+); Squamous Epithelial Cells - UA 0 SEEN /hpf (0-5)
[2024-05-05 10:23] LABS: Color, Urine Straw (Yellow); Glucose, Dipstick 250 mg/dl (Normal); Ketone-Dipstick Negative (Negative); Leukocyte Esterase-Dipstick 100 /ul (Negative); Nitrite-Dipstick Negative (Negative); Occult Blood-Urine Negative /ul (Negative); Protein-Dipstick 100 mg/dl (Negative); Urine Bilirubin Dipstick Negative (Negative); Urine Clarity Clear (Clear); Urine Urobilinogen Normal (Normal)
[2024-05-05 10:25] LABS: Absolute Lymphocyte Count 0.53 X10^3/uL (0.83-4.51); Absolute Neutrophil Count 3.3 X10^3/uL (2.0-7.7); Basophil# 0.05 X10^3/uL; Basophil% 1.1 % (0-1); Eosinophils% 4.5 % (0-5); Hematocrit 40.5 % (40-54); Hemoglobin 12.9 g/dL (13.0-16.5); Lymphocyte # 0.53 X10^3/ul (0.83-4.51); Mean Corp Hgb Conc 31.9 g/dL (32-36); Mean Corpuscular Hgb 28.8 pg (27.0-32.0); Mean Corpuscular Volume 90.4 fL (80-94); Mean Platelet Vol. 8.9 fl (6.2-12.0); Monocyte# 0.35 X10^3/uL; Monocyte% 7.9 % (0-10); NRBC Flagged by Analyzer 0 % (0-5); Neutrophil # 3.27 X10^3/uL (2.7-7.7); POSITIVE DIFFERENTIAL YES; Platelet Count 236 K/mm3 (150-450); RBC Distribution Width SD 52.3 fl (35.1-43.9); Red Blood Count 4.48 M/mm3 (4.6-6.2); White Blood Count 4.4 K/mm3 (4.4-11.0)
[2024-05-05 10:30] LABS: Bacteria 1+ /hpf (None Seen); Red Blood Cells-Urine 0-5 SEEN /hpf (0-5); White Blood Cells 5-10 SEEN /hpf (0-5)
[2024-05-05 10:52] LABS: PTHIN 41.5 pg/mL (18.4-80.1)
[2024-05-05 10:54] LABS: Vitamin D,25 Hydroxy 38.8 ng/mL
[2024-05-05 11:31] LABS: ALB/GLOB Ratio 0.9 RATIO (0.9-2.4); AST(SGOT) 18 U/L (15-37); Alanine Aminotransfer ALT/SGPT 27 U/L (16-61); Albumin, Serum 3.7 g/dL (3.2-5.0); Alkaline Phosphatase 164 U/L (45-117); Anion Gap 10 (5-15); BUN 35 mg/dL (7-18); BUN/Creat Ratio 11.7 RATIO (10-20); Chloride 105 mmol/L (98-107); Cholesterol 142 mg/dL (200); Creatinine, Serum 2.99 mg/dL (0.70-1.30); EST Glomerular Filtration Rate 26 mL/min (>60); Est Glom Filt Rate - Afr Amer 31 mL/min (>60); Globulin 3.9 g/dL (2.2-4.2); Glucose 125 mg/dL (74-106); High Density Lipoprotein 36 mg/dL; Phosphorus 2.9 mg/dL (2.5-4.9); Potassium 3.6 mmol/L (3.5-5.1); Protein, Total 7.6 g/dL (6.4-8.2); Sodium Level 139 mmol/L (136-145); Triglycerides 264 mg/dL; Very Low Density Lipoprotein 53 mg/dL (5-40)
[2024-05-05 12:27] LABS: Microalbumin:Creatinine Ratio 1038.4 mg/g CRE (<30 mg/g CRE); Protein, Urine (Random) 83.9 mg/dL (<11.9); Protein:Creat Ratio 1534 mg/g CRE (0-200)
[2024-05-05 12:35] LABS: Differential Indicated SCAN CRITERIA MET
== END 2024-05-05 23:59 | disposition home or self-care (01) ==
LOC: MTLAB 08:34
PROVIDERS: PCP Family Medicine; Referring Provider Family Medicine; Visit Provider Family Medicine
DX: E11.8 Type 2 diabetes mellitus with unspecified complications (principal)
CPT/HCPCS: 80053; 80061; 81001; 82043; 82306; 82570; 83036; 83970; 84100; 84156; 85025

== ENCOUNTER → 2024-07-14 | Outpatient (CLI) | payer MEDICARE, MEDICAID, SELFPAY ==
[2024-07-14 17:28] LABS: Albumin, Serum 3.5 g/dL (3.2-5.0); BUN 39 mg/dL (7-18); BUN/Creat Ratio 15.2 RATIO (10-20); Calcium,Total 9.9 mg/dL (8.5-10.1); Chloride 105 mmol/L (98-107); Creatinine, Serum 2.57 mg/dL (0.70-1.30); EST Glomerular Filtration Rate 31 mL/min (>60); Est Glom Filt Rate - Afr Amer 37 mL/min (>60); Glucose 93 mg/dL (74-106); Phosphorus 4.1 mg/dL (2.5-4.9); Potassium 3.7 mmol/L (3.5-5.1); Sodium Level 138 mmol/L (136-145)
== END | disposition home or self-care (01) ==
LOC: LAB 15:59
PROVIDERS: PCP Family Medicine; Referring Provider Internal Medicine Nephrology; Visit Provider Internal Medicine Nephrology
DX: N18.32 Chronic kidney disease, stage 3b (principal)
CPT/HCPCS: 36415; 80069

== ENCOUNTER → 2024-08-05 | Outpatient (CLI) | payer MEDICARE, MEDICAID, SELFPAY ==
[2024-08-05 10:21] LABS: Mucous, Urine 0 SEEN /hpf (<or=2+)
[2024-08-05 12:29] LABS: Color, Urine Yellow (Yellow); Glucose, Dipstick 1000 mg/dl (Normal); Ketone-Dipstick Negative (Negative); Leukocyte Esterase-Dipstick Negative /ul (Negative); Nitrite-Dipstick Negative (Negative); Occult Blood-Urine 10 /ul (Negative); Protein-Dipstick 100 mg/dl (Negative); Specific Gravity, Urine 1.015 (1.002-1.030); Urine Bilirubin Dipstick Negative (Negative); Urine Clarity Clear (Clear); Urine Urobilinogen Normal (Normal)
[2024-08-05 12:43] LABS: ALB/GLOB Ratio 0.9 RATIO (0.9-2.4); AST(SGOT) 33 U/L (15-37); Alanine Aminotransfer ALT/SGPT 38 U/L (16-61); Albumin, Serum 3.5 g/dL (3.2-5.0); Alkaline Phosphatase 172 U/L (45-117); Anion Gap 8 (5-15); BUN 35 mg/dL (7-18); BUN/Creat Ratio 13.9 RATIO (10-20); Calcium,Total 10.3 mg/dL (8.5-10.1); Chloride 105 mmol/L (98-107); Cholesterol 170 mg/dL (200); Creatinine, Serum 2.52 mg/dL (0.70-1.30); EST Glomerular Filtration Rate 31 mL/min (>60); Est Glom Filt Rate - Afr Amer 38 mL/min (>60); Glucose 90 mg/dL (74-106); High Density Lipoprotein 48 mg/dL; Potassium 3.6 mmol/L (3.5-5.1); Protein, Total 7.5 g/dL (6.4-8.2); Sodium Level 137 mmol/L (136-145); Triglycerides 245 mg/dL; Very Low Density Lipoprotein 49 mg/dL (5-40)
[2024-08-05 12:44] LABS: Absolute Lymphocyte Count 0.48 X10^3/uL (0.83-4.51); Absolute Neutrophil Count 3.9 X10^3/uL (2.0-7.7); Basophil# 0.04 X10^3/uL; Basophil% 0.8 % (0-1); Eosinophil# 0.21 X10^3/uL; Eosinophils% 4.1 % (0-5); Hematocrit 47.8 % (40-54); Hemoglobin 15.5 g/dL (13.0-16.5); Lymphocyte # 0.48 X10^3/ul (0.83-4.51); Lymphocyte % 9.3 % (19-41); Mean Corp Hgb Conc 32.4 g/dL (32-36); Mean Corpuscular Volume 89.3 fL (80-94); Monocyte# 0.52 X10^3/uL; Monocyte% 10.1 % (0-10); NRBC Flagged by Analyzer 0 % (0-5); Neutrophil # 3.88 X10^3/uL (2.7-7.7); Neutrophil % 75.1 % (47-70); POSITIVE DIFFERENTIAL YES; Platelet Count 217 K/mm3 (150-450); RBC Distribution Width CV 13.7 % (11.6-14.6); RBC Distribution Width SD 43.9 fl (35.1-43.9); Red Blood Count 5.35 M/mm3 (4.6-6.2); White Blood Count 5.2 K/mm3 (4.4-11.0)
[2024-08-05 12:50] LABS: Bacteria 1+ /hpf (None Seen); Red Blood Cells-Urine 0-5 SEEN /hpf (0-5); Squamous Epithelial Cells - UA 0-5 SEEN /hpf (0-5); White Blood Cells 0-5 SEEN /hpf (0-5)
[2024-08-05 12:52] LABS: Vitamin D,25 Hydroxy 33.6 ng/mL
[2024-08-05 12:56] LABS: Hemoglobin A1c 5.6 % (3.8-5.6)
[2024-08-05 13:39] LABS: Microalbumin:Creatinine Ratio 4540.4 mg/g CRE (<30 mg/g CRE); Protein, Urine (Random) 209.5 mg/dL (<11.9); Protein:Creat Ratio 5836 mg/g CRE (0-200)
== END | disposition home or self-care (01) ==
LOC: MFPLAB 10:14
PROVIDERS: PCP Family Medicine; Visit Provider Family Medicine
DX: E11.22 Type 2 diabetes mellitus with diabetic chronic kidney disease (principal); N18.9 Chronic kidney disease, unspecified
CPT/HCPCS: 36415; 80053; 80061; 81001; 82043; 82306; 82570; 83036; 84100; 84156; 85025

== ENCOUNTER 2024-11-11 11:22 | Emergency (ER) | payer MEDICARE, MEDICAID, SELFPAY ==
[2024-11-11 11:24] VITALS: BP 110/75; PULSE 113; RESP 18; TEMP 37; O2SAT 96; BMI 40.1
[2024-11-11 11:25] VITALS: BP 110/75; PULSE 113; RESP 18; TEMP 37; O2SAT 96
[2024-11-11 12:18] LABS: Bedside Glucose 93 mg/dL (74-106)
[2024-11-11 12:25] VITALS: BP 104/78; PULSE 98; RESP 21; TEMP 37.2; O2SAT 91
--- NOTE | 2024-11-11 12:32 | EX.ED.DYSGE1 ---
HPI <JOSE ALEJANDRO Taylor - Last Filed: 11/11/24 17:42> History of Present Illness Chief Complaint: General Illness Narrative Narrative: Patient presenting today due to hyperglycemia and flulike symptoms. Patient has a PMH of T2DM, CKD, HTN, testicular cancer in remission, and cognitive impairment. He is here with his caregiver who reports that this morning the home health nurse came out, his blood sugar was 476 which is unusual for him, he does not take insulin but takes Trulicity once weekly, she did give him his dose today. He has had nasal congestion and a nonproductive cough over the last two days. Today he had a fever of 101.1 ?F. He also has a history of lower extremity edema and takes Lasix as needed, he was given a 20 mg Lasix dose this morning due to lower extremity swelling. He does admit to eating a lot of ham and cookies yesterday at [place]. He denies abdominal pain, nausea, vomiting, and chest pain. PFSH <JOSE ALEJANDRO Taylor - Last Filed: 11/11/24 17:42> [facility] Medical History Lives in [facility] Wears glasses OCD (obsessive compulsive disorder) Anxiety Diabetes Bladder disease Back pain Dietary restriction Non-smoker CPAP (continuous positive airway pressure) dependence Shortness of breath on exertion Hx of testicular biopsy 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 Proteinuria Obstructive uropathy Hyperparathyroidism Prediabetes Sebaceous cyst Autism Severe sepsis Acute on chronic renal failure Cellulitis of right lower extremity Morbid obesity with BMI of 40.0-44.9, adult mrdd Home Medications ?Medication ?Instructions ?Recorded ?Last Taken ?Type ammonium lactate 12 % lotion 57 g TP BID 04/28/17 Unknown History (AmLactin) bupropion HCl 75 mg tablet 75 mg PO BID 04/28/17 06/20/23 History cholecalciferol (vitamin D3) 50 2,000 unit PO DAILY 04/28/17 Unknown History mcg (2,000 unit) capsule (Vitamin D3) fluvoxamine 50 mg tablet 100 mg PO BID 04/28/17 06/20/23 History montelukast 10 mg tablet 10 mg PO QHS 04/28/17 Unknown History (Singulair) oxybutynin chloride 5 mg tablet 5 mg PO BID 04/28/17 Unknown History risperidone 1 mg tablet 1 mg PO 4X/DAY 04/28/17 06/20/23 History clonazepam 0.5 mg tablet 1 tab PO BID 06/04/22 06/20/23 History glimepiride 1 mg tablet 1 mg PO DAILY #30 tabs 06/04/22 Unknown Rx lamotrigine 100 mg tablet 1 tab PO BID 06/04/22 Unknown History lamotrigine 25 mg tablet 1 tab PO DAILY 06/04/22 Unknown History quetiapine 200 mg tablet 1 tab PO BID 06/04/22 06/20/23 History dapagliflozin propanediol 10 mg 10 mg PO DAILY 05/15/23 Unknown History tablet (Farxiga) dulaglutide 0.75 mg/0.5 mL 0.75 mg subcut QWEEK 05/15/23 11/11/24 History subcutaneous pen injector (Trulicity) oxycodone-acetaminophen 5 mg-325 1 tab PO Q6H PRN PRN Pain 3 days 06/10/23 Unknown Rx mg tablet #10 TABLETS amlodipine 2.5 mg tablet 2.5 mg PO DAILY #30 tabs 06/20/23 Unknown Rx hydrocodone-acetaminophen 5-325mg 1 tab PO Q6H PRN PRN Pain 3 days 06/20/23 Unknown Rx 5mg-325mg #10 TABLETS hydrocodone-acetaminophen 5-325mg 1 tab PO Q6H PRN PRN Pain 3 days 06/24/23 Unknown Rx 5mg-325mg #10 TABLETS fluticasone propionate 50 2 spray intranasal DAILY 02/16/24 Unknown History mcg/actuation nasal spray,suspension acetaminophen 325 mg tablet 650 mg PO Q4H PRN 11/11/24 Unknown History amlodipine 10 mg tablet 10 mg PO DAILY 11/11/24 Unknown History furosemide 20 mg tablet 20 mg PO DAILY PRN edema 11/11/24 Unknown History ondansetron 4 mg disintegrating 4 mg PO Q8H PRN nausea and vomiting 11/11/24 Unknown History tablet oseltamivir 30 mg capsule (Tamiflu) 30 mg PO DAILY 5 days #5 caps 11/11/24 Unknown Rx potassium chloride 20 mEq/15 mL 20 meq PO DAILY 11/11/24 Unknown History oral liquid spironolactone 25 mg tablet 25 mg PO DAILY 11/11/24 Unknown History Allergy/AdvReac Type Severity Reaction Status Date / Time cephalexin (From Keflex) Allergy Rash Verified 11/11/24 11:23 Surgical History History of nasal surgery History of excision of mass Social History adopted: Yes housing: house Smoking Status: Never smoker ROS <JOSE ALEJANDRO Taylor - Last Filed: 11/11/24 17:42> ROS ED Constitutional Constitutional ED: Reports fever(s) Cardiovascular Cardiovascular: Denies chest pain or palpitations Respiratory/Chest Respiratory/Chest: Reports cough; Denies dyspnea or wheezing Gastrointestinal Gastrointestinal: Denies abdominal pain, diarrhea, nausea or vomiting Musculoskeletal Musculoskeletal: Denies arthralgias or myalgias Integumentary Denies rash Neurologic Neurologic: Denies weakness EXAM <JOSE ALEJANDRO Taylor - Last Filed: 11/11/24 17:42> Physical Exam Const Vital Signs: 11/11/24 11:24 11/11/24 11:25 11/11/24 12:01 Temperature 98.6 F 98.6 F Temperature Source Oral Oral Pulse Rate 113 H 113 H Respiratory Rate 18 18 Respiratory Effort Normal Respiratory Pattern Kussmaul Blood Pressure 110/75 110/75 Blood Pressure Mean 86 86 Pulse Ox 96 96 Oxygen Delivery Method Room Air Room Air 11/11/24 12:25 11/11/24 13:23 11/11/24 14:44 Temperature 99 F 99.2 F H 98.9 F Temperature Source Oral Oral Pulse Rate 98 100 95 Respiratory Rate 21 H 21 H 20 H Respiratory Effort Respiratory Pattern Blood Pressure 104/78 124/81 H 128/87 H Blood Pressure Mean 86 95 100 Pulse Ox 91 94 92 Oxygen Delivery Method Room Air Room Air Positive well nourished, well developed and no apparent distress General Appearance ED: well developed HEENT Reports normocephalic, head/scalp atraumatic and TM's clear HEENT Narrative: Posterior pharynx clear, uvula midline, no tonsillar exudate Tympanic Membrane ED: Yes TM's clear bilateral Mouth ED: Yes moist mucous membranes normal Eyes PERRL and EOMs intact bilaterally Neck full ROM and supple Chest Wall inspection of chest normal Resp normal respiratory effort Resp Narrative: Diminished breath sounds at the right lower lung base Cardio regular rate and regular rhythm GI soft to palpation, non-tender, non-distended and no masses Back/Spine normal ROM and normal to inspection Extremity normal to inspection and full ROM Extremity Narrative: 2+ pitting edema bilateral lower extremities, chronic venous stasis changes to the anterior aspect of the bilateral lower legs, no warmth, wounds, streaking, or findings consistent with cellulitis. Neuro oriented x3, CN's II-XII intact bilaterally, moves all extremities, no focal motor deficits and no sensory deficits noted Sensorium / Orientation: awake and alert Psych mental status grossly normal and thought process normal Skin no rashes or lesions noted and no wounds <Dr. Mahad Lim DO - Last Filed: 11/11/24 22:23> Physical Exam Const Vital Signs: 11/11/24 11:24 11/11/24 11:25 11/11/24 12:01 Temperature 98.6 F 98.6 F Temperature Source Oral Oral Pulse Rate 113 H 113 H Respiratory Rate 18 18 Respiratory Effort Normal Respiratory Pattern Kussmaul Blood Pressure 110/75 110/75 Blood Pressure Mean 86 86 Pulse Ox 96 96 Oxygen Delivery Method Room Air Room Air 11/11/24 12:25 11/11/24 13:23 11/11/24 14:44 Temperature 99 F 99.2 F H 98.9 F Temperature Source Oral Oral Pulse Rate 98 100 95 Respiratory Rate 21 H 21 H 20 H Respiratory Effort Respiratory Pattern Blood Pressure 104/78 124/81 H 128/87 H Blood Pressure Mean 86 95 100 Pulse Ox 91 94 92 Oxygen Delivery Method Room Air Room Air [facility] <JOSE ALEJANDRO Taylor - Last Filed: 11/11/24 17:42> [facility] Narrative Medical decision making narrative: Patient presenting today with hyperglycemia and flulike symptoms. Glucose was checked when patient arrived and it was 93. I suspect that it was falsely elevated when the home health nurse came out given he was not given any medication for hyperglycemia aside from Trulicity. He is not in DKA. His CBC overall is unremarkable, his kidneys appear to be near baseline. COVID/influenza/RSV obtained and he is positive for influenza A. Chest x-ray shows mild bibasilar atelectasis or pneumonia. Patient has a GFR of 27, he is within the window to receive Tamiflu and would like to begin this treatment. He was given a prescription for a renally adjusted course of Tamiflu. I recommended he follow-up with his PCP, return instructions were discussed. Patient discharged home in stable condition. Lab Data Attestation: I reviewed the patient's lab results. Lab results narrative: Platelet count 148, hemoglobin 13.6, BUN 40, creatinine 2.84, glucose 86 Labs: Laboratory Results - last 24 hr 11/11/24 11/11/24 11:48 12:46 WBC 6.2 RBC 4.56 L Hgb 13.6 Hct 39.8 L MCV 87.3 MCH 29.8 MCHC 34.2 RDW Std Deviation 47.4 H RDW Coeff of Judith 14.8 H Plt Count 148 L MPV 8.6 Immature Gran % (Auto) 1.100 H Neut % (Auto) 72.2 H Lymph % (Auto) 7.1 L Hall % (Auto) 18.5 H Eos % (Auto) 0.5 Baso % (Auto) 0.6 Absolute Neuts (auto) 4.5 Absolute Lymphs (auto) 0.44 L Nucleated RBC % 0 Sodium 138 Potassium 3.5 Chloride 107 Carbon Dioxide 22.0 Anion Gap 10 BUN 40 H Creatinine 2.84 H Estim Creat Clear Calc 51.98 Est GFR (MDRD) Af Amer 33 L Est GFR (MDRD) Non-Af 27 L BUN/Creatinine Ratio 14.1 Glucose 86 Calcium 9.2 POC Glucose 93 Radiography X-Ray: Read by ED Physician Diagnostic Testing: Clinical Impression(s) from Imaging Studies Chest X-Ray 11/11/24 12:50 IMPRESSION: Mild bibasilar atelectasis or pneumonia. Electronically Signed: Dai Jennings MD at 14:09 EST , <Dr. Mahad Lim, DO - Last Filed: 11/11/24 22:23> [facility] Narrative Medical decision making narrative: Patient presenting today with hyperglycemia and flulike symptoms. Glucose was checked when patient arrived and it was 93. I suspect that it was falsely elevated when the home health nurse came out given he was not given any medication for hyperglycemia aside from Trulicity. He is not in DKA. His CBC overall is unremarkable, his kidneys appear to be near baseline. COVID/influenza/RSV obtained and he is positive for influenza A. Chest x-ray shows mild bibasilar atelectasis or pneumonia. Patient has a GFR of 27, he is within the window to receive Tamiflu and would like to begin this treatment. He was given a prescription for a renally adjusted course of Tamiflu. I recommended he follow-up with his PCP, return instructions were discussed. Patient discharged home in stable condition. Attending note: I have personally performed a face to face assessment of the patient and have reviewed the JULIETA note. I personally made/approved the management plan and take responsibility for the patient management. I performed a substantive portion of the visit including all aspects of the following. My hazel findings include: Due to upper respiratory symptoms home health care staff has been very concerned he had glucose 450 range. He is giving you Trulicity dose today. No nausea or vomiting. Reported fevers. Exam alert nontoxic. Two-view chest x-ray interpreted by myself and read by radiology atelectasis versus pneumonia.Influenza A positive. Labs of CKD history eGFR 27. Day II symptoms asthma and CKD history. Discussed antivirals for which they agree. Evaluation of his GFR dosing will be 30 mg once a day for 5 days. Prescription sent to pharmacy. Glucose was normal in the lab. Lab Data Labs: Laboratory Results - last 24 hr 11/11/24 11/11/24 11:48 12:46 WBC 6.2 RBC 4.56 L Hgb 13.6 Hct 39.8 L MCV 87.3 MCH 29.8 MCHC 34.2 RDW Std Deviation 47.4 H RDW Coeff of Judith 14.8 H Plt Count 148 L MPV 8.6 Immature Gran % (Auto) 1.100 H Neut % (Auto) 72.2 H Lymph % (Auto) 7.1 L Hall % (Auto) 18.5 H Eos % (Auto) 0.5 Baso % (Auto) 0.6 Absolute Neuts (auto) 4.5 Absolute Lymphs (auto) 0.44 L Nucleated RBC % 0 Sodium 138 Potassium 3.5 Chloride 107 Carbon Dioxide 22.0 Anion Gap 10 BUN 40 H Creatinine 2.84 H Estim Creat Clear Calc 51.98 Est GFR (MDRD) Af Amer 33 L Est GFR (MDRD) Non-Af 27 L BUN/Creatinine Ratio 14.1 Glucose 86 Calcium 9.2 POC Glucose 93 Radiography Diagnostic Testing: Clinical Impression(s) from Imaging Studies Chest X-Ray 11/11/24 12:50 IMPRESSION: Mild bibasilar atelectasis or pneumonia. Electronically Signed: Dai Jennings MD at 14:09 EST Reading Location ID and State: [facility] / [place] Tel , Service support , Discharge Plan Triage Chief Complaint: General Illness ED Midlevel Provider: Blanche Miner ED Provider: Mahad Lim Dx/Rx/DC Orders Clinical Impression: Influenza A, CKD (chronic kidney disease), Diabetes Instructions: ED Influenza (Adult) Prescriptions: New oseltamivir [Tamiflu] 30 mg capsule 30 mg PO DAILY 5 Days Qty: 5 0RF No Action Farxiga 10 mg tablet 10 mg PO DAILY Trulicity 0.75 mg/0.5 mL pen injector 0.75 mg subcut QWEEK ammonium lactate [AmLactin] 57 GM lotion 57 g TP BID bupropion HCl 75 MG tablet 75 mg PO BID montelukast [Singulair] 10 MG tablet 10 mg PO QHS fluvoxamine 50 MG tablet 100 mg PO BID oxybutynin chloride 5 MG tablet 5 mg PO BID risperidone 1 MG tablet 1 mg PO 4X/DAY cholecalciferol (vitamin D3) [Vitamin D3] 2,000 UNIT capsule 2,000 unit PO DAILY clonazepam 0.5 mg tablet 1 tab PO BID quetiapine 200 mg tablet 1 tab PO BID lamotrigine 25 mg tablet 1 tab PO DAILY Rx Instructions: AM lamotrigine 100 mg tablet 1 tab PO BID glimepiride 1 mg tablet 1 mg PO DAILY Qty: 30 0RF oxycodone-acetaminophen [oxycodone-acetaminophen] 5-325 mg tablet 1 tab PO Q6H PRN PRN (Reason: Pain) 3 Days Qty: 10 0RF hydrocodone-acetaminophen 5-325 mg tablet 1 tab PO Q6H PRN PRN (Reason: Pain) 3 Days Qty: 10 0RF amlodipine 2.5 mg tablet 2.5 mg PO DAILY Qty: 30 0RF hydrocodone-acetaminophen [hydrocodone-acetaminophen] 5-325 mg tablet 1 tab PO Q6H PRN PRN (Reason: Pain) 3 Days Qty: 10 0RF fluticasone propionate 50 mcg/actuation spray,suspension 2 spray INTRANASAL DAILY amlodipine 10 mg tablet 10 mg PO DAILY potassium chloride 20 mEq/15 mL liquid 20 meq PO DAILY acetaminophen 325 mg tablet 650 mg PO Q4H PRN spironolactone 25 mg tablet 25 mg PO DAILY furosemide 20 mg tablet 20 mg PO DAILY PRN (Reason: edema) ondansetron 4 mg tablet,disintegrating 4 mg PO Q8H PRN (Reason: nausea and vomiting) Primary Care Provider: Floyd Guardado Referrals: Floyd Guardado MD [Primary Care Provider] - 5-7 Days Activity Restrictions/Additional Instructions: Take your Lasix as prescribed to help with your lower leg swelling, follow-up with PCP and return for any worsening of your symptoms. Print Language: Georgian Disposition Disposition: Home, Self Care Discharge Date/Time: 11/11/24 14:52
--- NOTE | 2024-11-11 12:50 | RAD_ITS ---
HISTORY: cough. TECHNIQUE: XR Chest 2 Views. COMPARISON: 06/04/2022. FINDINGS: CARDIOMEDIASTINAL BORDERS: Cardiac silhouette within normal limits in size. Mediastinal contour unremarkable. LUNGS: Mild bibasilar opacities. PLEURA: No pleural effusion or pneumothorax seen. OSSEOUS STRUCTURES: Unremarkable. RAD/Chest PA and Lateral IMPRESSION: Mild bibasilar atelectasis or pneumonia. Electronically Signed: Dai Jennings MD at 14:09 EST ,
[2024-11-11 12:58] LABS: Absolute Lymphocyte Count 0.44 X10^3/uL (0.83-4.51); Absolute Neutrophil Count 4.5 X10^3/uL (2.0-7.7); Basophil# 0.04 X10^3/uL; Basophil% 0.6 % (0-1); Eosinophil# 0.03 X10^3/uL; Eosinophils% 0.5 % (0-5); Hematocrit 39.8 % (40-54); Hemoglobin 13.6 g/dL (13.0-16.5); Lymphocyte # 0.44 X10^3/ul (0.83-4.51); Lymphocyte % 7.1 % (19-41); Mean Corp Hgb Conc 34.2 g/dL (32-36); Mean Corpuscular Hgb 29.8 pg (27.0-32.0); Mean Corpuscular Volume 87.3 fL (80-94); Mean Platelet Vol. 8.6 fl (6.2-12.0); Monocyte# 1.14 X10^3/uL; Monocyte% 18.5 % (0-10); NRBC Flagged by Analyzer 0 % (0-5); Neutrophil # 4.45 X10^3/uL (2.7-7.7); Neutrophil % 72.2 % (47-70); POSITIVE DIFFERENTIAL YES; Platelet Count 148 K/mm3 (150-450); RBC Distribution Width CV 14.8 % (11.6-14.6); RBC Distribution Width SD 47.4 fl (35.1-43.9); Red Blood Count 4.56 M/mm3 (4.6-6.2); White Blood Count 6.2 K/mm3 (4.4-11.0)
[2024-11-11 13:16] LABS: Anion Gap 10 (5-15); BUN 40 mg/dL (7-18); BUN/Creat Ratio 14.1 RATIO (10-20); Calcium,Total 9.2 mg/dL (8.5-10.1); Chloride 107 mmol/L (98-107); Creatinine, Serum 2.84 mg/dL (0.70-1.30); EST Glomerular Filtration Rate 27 mL/min (>60); Est Glom Filt Rate - Afr Amer 33 mL/min (>60); Estimated Creatinine Clearance 51.98 ml/min; Glucose 86 mg/dL (74-106); Potassium 3.5 mmol/L (3.5-5.1); Sodium Level 138 mmol/L (136-145)
[2024-11-11 13:23] VITALS: BP 124/81; PULSE 100; RESP 21; TEMP 37.3; O2SAT 94
[2024-11-11 14:44] VITALS: BP 128/87; PULSE 95; RESP 20; TEMP 37.2; O2SAT 92
== END 2024-11-11 14:52 | disposition home or self-care (01) ==
PROVIDERS: Physician Assistant; Emergency Provider Emergency Medicine; PCP Family Medicine; Visit Provider Emergency Medicine
DX: J10.1 Influenza due to other identified influenza virus with other respiratory manifestations (principal); E11.65 Type 2 diabetes mellitus with hyperglycemia; E11.22 Type 2 diabetes mellitus with diabetic chronic kidney disease; I12.9 Hypertensive chronic kidney disease with stage 1 through stage 4 chronic kidney disease, or unspecified chronic kidney disease; N18.9 Chronic kidney disease, unspecified; Z79.84 Long term (current) use of oral hypoglycemic drugs; Z79.85 Long-term (current) use of injectable non-insulin antidiabetic drugs; Z79.899 Other long term (current) drug therapy
CPT/HCPCS: 71046; 80048; 82962; 85025; 87631; 99282; A4216

== ENCOUNTER → 2024-12-02 | Outpatient (CLI) | payer MEDICARE, MEDICAID, SELFPAY ==
[2024-12-02 13:55] LABS: Mucous, Urine 0 SEEN /hpf (<or=2+); Squamous Epithelial Cells - UA 0 SEEN /hpf (0-5)
[2024-12-02 15:21] LABS: Color, Urine Yellow (Yellow); Glucose, Dipstick 1000 mg/dl (Normal); Ketone-Dipstick 5 mg/dl (Negative); Leukocyte Esterase-Dipstick 500 /ul (Negative); Nitrite-Dipstick Positive (Negative); Occult Blood-Urine 10 /ul (Negative); Protein-Dipstick 500 mg/dl (Negative); Specific Gravity, Urine 1.015 (1.002-1.030); Urine Bilirubin Dipstick Negative (Negative); Urine Clarity Clear (Clear); Urine Urobilinogen Normal (Normal)
[2024-12-02 15:26] LABS: Absolute Lymphocyte Count 0.75 X10^3/uL (0.83-4.51); Absolute Neutrophil Count 5.4 X10^3/uL (2.0-7.7); Basophil# 0.08 X10^3/uL; Basophil% 1.1 % (0-1); Eosinophil# 0.14 X10^3/uL; Hematocrit 47.5 % (40-54); Hemoglobin 15.5 g/dL (13.0-16.5); Lymphocyte # 0.75 X10^3/ul (0.83-4.51); Lymphocyte % 10.5 % (19-41); Mean Corp Hgb Conc 32.6 g/dL (32-36); Mean Corpuscular Hgb 28.8 pg (27.0-32.0); Mean Corpuscular Volume 88.3 fL (80-94); Mean Platelet Vol. 9.1 fl (6.2-12.0); Monocyte# 0.72 X10^3/uL; Monocyte% 10.1 % (0-10); NRBC Flagged by Analyzer 0 % (0-5); Neutrophil % 75.9 % (47-70); Platelet Count 229 K/mm3 (150-450); RBC Distribution Width CV 15.1 % (11.6-14.6); Red Blood Count 5.38 M/mm3 (4.6-6.2); White Blood Count 7.1 K/mm3 (4.4-11.0)
[2024-12-02 15:42] LABS: ALB/GLOB Ratio 0.8 RATIO (0.9-2.4); AST(SGOT) 28 U/L (15-37); Alanine Aminotransfer ALT/SGPT 35 U/L (16-61); Albumin, Serum 3.6 g/dL (3.2-5.0); Alkaline Phosphatase 188 U/L (45-117); Anion Gap 10 (5-15); BUN 37 mg/dL (7-18); BUN/Creat Ratio 12.9 RATIO (10-20); Chloride 105 mmol/L (98-107); Cholesterol 168 mg/dL (200); Creatinine, Serum 2.87 mg/dL (0.70-1.30); EST Glomerular Filtration Rate 27 mL/min (>60); Est Glom Filt Rate - Afr Amer 33 mL/min (>60); Globulin 4.3 g/dL (2.2-4.2); Glucose 106 mg/dL (74-106); High Density Lipoprotein 50 mg/dL; Potassium 3.7 mmol/L (3.5-5.1); Protein, Total 7.9 g/dL (6.4-8.2); Sodium Level 139 mmol/L (136-145); Triglycerides 273 mg/dL; Very Low Density Lipoprotein 55 mg/dL (5-40)
[2024-12-02 15:44] LABS: Vitamin D,25 Hydroxy 36.1 ng/mL
[2024-12-02 16:14] LABS: Microalbumin:Creatinine Ratio 2943.2 mg/g CRE (<30 mg/g CRE); Protein, Urine (Random) 237.8 mg/dL (<11.9); Protein:Creat Ratio 4093 mg/g CRE (0-200)
[2024-12-02 16:49] LABS: Bacteria 1+ /hpf (None Seen)
[2024-12-02 16:50] LABS: Red Blood Cells-Urine 0-5 SEEN /hpf (0-5); Transitional Epithelial - Ur 0-5 SEEN /hpf (0-5)
[2024-12-02 16:51] LABS: White Blood Cells >100 SEEN /hpf (0-5)
[2024-12-02 17:03] LABS: Hemoglobin A1c 5.6 % (3.8-5.6)
== END | disposition home or self-care (01) ==
LOC: MFPLAB 12:10
PROVIDERS: PCP Family Medicine; Referring Provider Family Medicine; Visit Provider Family Medicine
DX: E11.22 Type 2 diabetes mellitus with diabetic chronic kidney disease (principal); E11.59 Type 2 diabetes mellitus with other circulatory complications; R31.9 Hematuria, unspecified

== ENCOUNTER → 2024-12-02 | Outpatient (CLI) | payer MEDICARE, MEDICAID, SELFPAY ==
--- NOTE | 2024-12-02 13:02 | VDLE_ITS ---
Reason For Study: Bilateral edema RIGHT LEFT GSV is normal. GSV is normal. CFV is compressible, spontaneous, phasic, CFV is compressible, spontaneous, phasic, competent and demonstrates normal competent, and demonstrates normal augmentation. augmentation. FV is compressible, spontaneous, phasic, FV is compressible, spontaneous, phasic, competent and demonstrates normal competent and demonstrates normal augmentation. augmentation. POP V is compressible, spontaneous, phasic, POP V is compressible, spontaneous, phasic, competent and demonstrates normal competent and demonstrates normal augmentation. augmentation. T/P Trunk is compressible. T/P Trunk is compressible. PTV is compressible. PTV is compressible. RT PerV is compressible. LT PerV is compressible. Procedure This is a venous duplex using B-mode, color flow and spectral Doppler. Exam performed in department. A preliminary report was called and/or faxed to Dr. Guardado. VL/Venous Duplex US - [place] Extrem Interpretation Summary Deep veins of the lower extremities are bilaterally patent and compressible seg mentally. There is no evidence of deep vein thrombosis on either side. Valvular competence appears in tact within the proximal deep venous systems bilaterally. The great saphenous veins appear bila terally patent and compressible segmentally. Ordering Physician: Floyd Guardado Referring Physician: Floyd Guardado Performed By: Yaritza Cruz RVT
== END | disposition home or self-care (01) ==
LOC: CVS 13:01
PROVIDERS: PCP Family Medicine; Referring Provider Family Medicine; Visit Provider Family Medicine
DX: R60.0 Localized edema (principal)

== ENCOUNTER → 2024-12-20 | Outpatient (CLI) | payer MEDICARE, MEDICAID, SELFPAY ==
[2024-12-20 18:10] LABS: Anion Gap 11 (5-15); BUN 48 mg/dL (7-18); BUN/Creat Ratio 15.9 RATIO (10-20); Calcium,Total 9.1 mg/dL (8.5-10.1); Chloride 106 mmol/L (98-107); Creatinine, Serum 3.02 mg/dL (0.70-1.30); EST Glomerular Filtration Rate 25 mL/min (>60); Est Glom Filt Rate - Afr Amer 31 mL/min (>60); Glucose 143 mg/dL (74-106); Potassium 3.4 mmol/L (3.5-5.1); Sodium Level 139 mmol/L (136-145)
== END | disposition home or self-care (01) ==
LOC: MTLAB 14:45
PROVIDERS: PCP Family Medicine
DX: E11.22 Type 2 diabetes mellitus with diabetic chronic kidney disease (principal); N18.30 Chronic kidney disease, stage 3 unspecified
CPT/HCPCS: 36415; 80048

== ENCOUNTER → 2025-01-06 | Outpatient (CLI) | payer MEDICARE, MEDICAID, SELFPAY | END | disposition home or self-care (01) | LOC: LABSPEC 16:38 | PROVIDERS: PCP Family Medicine; Visit Provider Student in an Organized Health Care Education/Training Program | DX: L97.522 Non-pressure chronic ulcer of other part of left foot with fat layer exposed (principal); L03.032 Cellulitis of left toe; M20.5X2 Other deformities of toe(s) (acquired), left foot | CPT/HCPCS: 87070; 87077; 87186; 87205 ==

== ENCOUNTER → 2025-01-14 | Outpatient (CLI) | payer MEDICARE, MEDICAID, SELFPAY ==
[2025-01-14 22:48] LABS: Anion Gap 19 (5-15); BUN 36 mg/dL (4-19); BUN/Creat Ratio 13.7 RATIO (10-20); Carbon Dioxide 18.1 mmol/L (22.0-29.0); Chloride 100 mmol/L (96-108); Creatinine, Serum 2.64 mg/dL (0.70-1.20); EST Glomerular Filtration Rate 32 (>60); Glucose 109 mg/dL (70-99); Potassium 3.6 mmol/L (3.3-5.1); Sodium Level 137 mmol/L (133-145)
== END | disposition home or self-care (01) ==
LOC: MFPLAB 13:50
PROVIDERS: PCP Family Medicine; Referring Provider Family Medicine; Visit Provider Family Medicine
DX: E11.22 Type 2 diabetes mellitus with diabetic chronic kidney disease (principal); N18.9 Chronic kidney disease, unspecified
CPT/HCPCS: 36415; 80048

== ENCOUNTER 2025-05-06 19:41 | Emergency (ER) | payer MEDICARE, MEDICAID, SELFPAY ==
[2025-05-06 19:42] VITALS: BP 150/98; PULSE 89; RESP 18; TEMP 36.2; O2SAT 100; BMI 41.0
--- NOTE | 2025-05-06 19:58 | EX.ED.DYSGE1 ---
HPI History of Present Illness Chief Complaint: Edema Informant: patient and other (Caregiver) Onset/Context/Timing Onset: Month(s) Context: Gradual Onset Timing: Continuous Quality: Swelling Location: Bilateral lower extremities Worsened by: Nothing Relieved by: Nothing Narrative Narrative: Patient presents with bilateral lower extremity edema. Patient has had this for months. Caregiver states she recently started caring for him again and noted the swelling was worse. Patient noted some open areas on his lower legs. Patient denies any fevers or chills. Patient states that these open areas have been draining clear liquid but denies any purulent drainage. Patient states nothing makes his swelling worse and nothing makes it better. Patient denies any nausea or vomiting. Patient denies any chest pain or shortness of breath. [facility] Medical History Lives in independent [facility] Wears glasses OCD (obsessive compulsive disorder) Anxiety Diabetes Bladder disease Back pain Dietary restriction Non-smoker CPAP (continuous positive airway pressure) dependence Shortness of breath on exertion Hx of testicular biopsy 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 Proteinuria Obstructive uropathy Hyperparathyroidism Prediabetes Sebaceous cyst Autism Severe sepsis Acute on chronic renal failure Cellulitis of right lower extremity Morbid obesity with BMI of 40.0-44.9, adult mrdd Home Medications ?Medication ?Instructions ?Recorded ?Last Taken ?Type bupropion HCl 75 mg tablet 75 mg PO BID 04/28/17 06/20/23 History cholecalciferol (vitamin D3) 50 2,000 unit PO DAILY 04/28/17 Unknown History mcg (2,000 unit) capsule (Vitamin D3) fluvoxamine 50 mg tablet 100 mg PO BID 04/28/17 06/20/23 History montelukast 10 mg tablet 10 mg PO QHS 04/28/17 Unknown History (Singulair) oxybutynin chloride 5 mg tablet 5 mg PO BID 04/28/17 Unknown History risperidone 1 mg tablet 1 mg PO 4X/DAY 04/28/17 06/20/23 History clonazepam 0.5 mg tablet 1 tab PO BID 06/04/22 06/20/23 History lamotrigine 100 mg tablet 1 tab PO BID 06/04/22 Unknown History lamotrigine 25 mg tablet 1 tab PO DAILY 06/04/22 Unknown History quetiapine 200 mg tablet 1 tab PO BID 06/04/22 06/20/23 History dapagliflozin propanediol 10 mg 10 mg PO DAILY 05/15/23 Unknown History tablet (Farxiga) dulaglutide 0.75 mg/0.5 mL 0.75 mg subcut QWEEK 05/15/23 11/11/24 History subcutaneous pen injector ([facility]) fluticasone propionate 50 2 spray intranasal DAILY 02/16/24 Unknown History mcg/actuation nasal spray,suspension acetaminophen 325 mg tablet 650 mg PO Q4H PRN 11/11/24 Unknown History amlodipine 10 mg tablet 10 mg PO DAILY 11/11/24 Unknown History ondansetron 4 mg disintegrating 4 mg PO Q8H PRN nausea and vomiting 11/11/24 Unknown History tablet potassium chloride 20 mEq/15 mL 20 meq PO DAILY 11/11/24 Unknown History oral liquid spironolactone 25 mg tablet 25 mg PO DAILY 11/11/24 Unknown History furosemide 20 mg tablet 40 mg PO DAILY PRN edema 02/04/25 Unknown History Allergy/AdvReac Type Severity Reaction Status Date / Time cephalexin (From [place]) Allergy Rash Verified 05/06/25 19:41 Surgical History History of nasal surgery History of excision of mass Social History adopted: Yes housing: house Smoking Status: Never smoker ROS ROS ED Constitutional Constitutional ED: Denies chills or fever(s) Eyes Eyes: Denies blurry vision or change in vision ENT ENT ED: Denies rhinorrhea or sore throat Cardiovascular Cardiovascular: Denies chest pain or palpitations Respiratory/Chest Respiratory/Chest: Denies cough or dyspnea Gastrointestinal Gastrointestinal: Denies nausea or vomiting Genitourinary Genitourinary ED: Denies dysuria or hematuria Musculoskeletal Musculoskeletal: Denies back pain or neck pain Integumentary Denies abscess or rash Neurologic Neurologic: Denies headache(s) or weakness Allergic/Immunologic Allergic/Immunologic ED: Denies mouth swelling or urticaria EXAM Physical Exam Const Vital Signs: 05/06/25 19:42 05/06/25 20:31 Temperature 97.2 F L Temperature Source Temporal Pulse Rate 89 Respiratory Rate 18 Respiratory Effort Short of Breath Respiratory Pattern Tachypnea Blood Pressure 150/98 H Blood Pressure Mean 115 Pulse Ox 100 Positive well nourished and well developed Constitutional Narrative: BMI is 41.0 General Appearance ED: well developed and NAD HEENT Reports moist mucous membranes Neck supple and no JVD Resp normal respiratory effort and clear to auscultation bilaterally Cardio regular rate and regular rhythm GI non-tender and non-distended Palpation: soft Extremity Extremity Narrative: There is nonpitting edema of the lower extremities bilaterally. There are superficial ulcerations over the anterior lateral aspect of the right lower leg and posterior aspect of the left lower leg. There is minimal erythema. There is no warmth noted. There is no discharge or drainage noted. There is no tenderness noted. General Extremety ED: Yes edema General Extremity: edema Neuro oriented x3, CN's II-XII intact bilaterally and no sensory deficits noted Sensorium / Orientation: alert Motor Exam: strength 5/5 throughout Psych mental status grossly normal MDM MDM MDM Narrative Medical decision making narrative: Differential diagnosis includes acute kidney injury, dehydration, electrolyte abnormality, and peripheral edema. CBC will be obtained to assess for leukocytosis and anemia. Basic metabolic profile will be obtained to assess for electrolyte abnormality and renal function. History & Record Review Additional record(s) reviewed:: Prior outpatient record and Prior labs Lab Data Attestation: I reviewed the patient's lab results. Lab results narrative: CBC was reviewed and was essentially within normal limits. Basic metabolic profile was reviewed. BUN was 41 and creatinine was 3.02. These are consistent with previous results. Labs: Laboratory Results - last 24 hr 05/06/25 20:28 WBC 6.2 RBC 5.15 Hgb 15.6 Hct 44.5 MCV 86.4 MCH 30.3 MCHC 35.1 RDW Std Deviation 41.9 RDW Coeff of Judith 13.4 Plt Count 196 MPV 8.6 Immature Gran % (Auto) 0.500 Neut % (Auto) 72.9 H Lymph % (Auto) 12.5 L [place] % (Auto) 10.0 Eos % (Auto) 3.5 Baso % (Auto) 0.6 Absolute Neuts (auto) 4.5 Absolute Lymphs (auto) 0.78 L Nucleated RBC % 0 Sodium 138 Potassium 3.7 Chloride 103 Carbon Dioxide 21.0 Anion Gap 15 BUN 41 H Creatinine 3.02 H Estim Creat Clear Calc 49.45 L Est GFR (MDRD) Non-Af 27 L BUN/Creatinine Ratio 13.4 Glucose 117 H Calcium 9.5 Treatment and Re-Evaluation :: Patient and caregiver were advised of the findings. I do not feel the patient requires antibiotics at this time. Caregiver was instructed to keep the open areas clean and dry. Patient was instructed to keep his legs elevated. Patient was instructed to follow-up with his primary care physician in 5 to 7 days. Patient understood and was agreeable with the plan. All questions were answered. Discharge Plan Triage Chief Complaint: Edema ED Provider: Simeon Cobos Dx/Rx/DC Orders Clinical Impression: Lymphedema, Right testicular cancer, CKD (chronic kidney disease) stage 3, GFR 30-59 ml/min Instructions: ED Peripheral Edema, Bilateral, ED Lymphedema Prescriptions: No Action Farxiga 10 mg tablet 10 mg PO DAILY Trulicity 0.75 mg/0.5 mL pen injector 0.75 mg subcut QWEEK bupropion HCl 75 MG tablet 75 mg PO BID montelukast [Singulair] 10 MG tablet 10 mg PO QHS fluvoxamine 50 MG tablet 100 mg PO BID oxybutynin chloride 5 MG tablet 5 mg PO BID risperidone 1 MG tablet 1 mg PO 4X/DAY cholecalciferol (vitamin D3) [Vitamin D3] 2,000 UNIT capsule 2,000 unit PO DAILY clonazepam 0.5 mg tablet 1 tab PO BID quetiapine 200 mg tablet 1 tab PO BID lamotrigine 25 mg tablet 1 tab PO DAILY Rx Instructions: AM lamotrigine 100 mg tablet 1 tab PO BID fluticasone propionate 50 mcg/actuation spray,suspension 2 spray INTRANASAL DAILY amlodipine 10 mg tablet 10 mg PO DAILY potassium chloride 20 mEq/15 mL liquid 20 meq PO DAILY acetaminophen 325 mg tablet 650 mg PO Q4H PRN spironolactone 25 mg tablet 25 mg PO DAILY ondansetron 4 mg tablet,disintegrating 4 mg PO Q8H PRN (Reason: nausea and vomiting) Primary Care Provider: Floyd Guardado Referrals: Floyd Guardado MD [Primary Care Provider] - Print Language: Niuean Disposition Disposition: Home, Self Care
--- OUTSIDE RECORDS SUMMARY | 2025-05-06 20:20 | XMS RPT_ITS | CCD ---
Author Organization [facility] Care Team Providers Care Scrap Drop Engineer Name Role Phone Floyd Guardado Primary Care Provider Dr. Floyd Guardado Primary Care Provider Dr. Floyd Guardado Referring Provider Dr. Jessica Stevenson Attending Provider [phone] ARNOL Guzmán Attending Provider [phone] Floyd Guardado Primary Care Provider [phone] Dr. Floyd Guardado Primary Care Provider Dr. Floyd Guardado Referring Provider Dr. Rosa Vera Attending Provider Dr. Jesse Montes Attending Provider Floyd Guardado Primary Care Provider [phone] Jesse Montes DO Unavailable Rosa Vera Unavailable Floyd Guardado MD Primary Care Provider Cornelius RN, Janay Unavailable Unavailable Hardik Wilkerson DO Unavailable QI RANKIN Attending Unavailable QI RANKIN Admitting Unavailable FLOYD GUARDADO Primary Care Unavailable FLOYD GUARDADO Primary Care Unavailable HARDIK WILKERSON Referring Unavailable FLOYD GUARDADO Primary Care Unavailable HARDIK WILKERSON Referring Unavailable Dr. Floyd Guardado Primary Care Provider Dr. Floyd Guardado Referring Provider Dr. Rosa Vera Attending Provider Dr. Jesse Montes Attending Provider Dr. Floyd Guardado Primary Care Provider Dr. Floyd Guardado Referring Provider FLOYD GUARDADO Primary Care Unavailable PROVIDER, UNKNOWN Referring Unavailable FLOYD GUARDADO Primary Care Unavailable PROVIDER, UNKNOWN Referring Unavailable Philip ANDREWS, Alexus Devine Unavailable Humphrey OLSON, Izabela Cueto Unavailable Unavailable Олег ANDREWS, Floyd Daugherty Primary Care Provider eJsse Montes DO Unavailable Percy ANDREWS, Floyd Leo Primary Care Provider Dr. Floyd Guardado MD Primary Care Provider Dr. Mahad Lim DO Attending Provider Dr. Mahad Lim DO Emergency Provider [phone] Dr. Floyd Guardado MD Attending Provider Dr. Floyd Guardado MD Referring Provider Dr. Teja Payton MD Attending Provider Delma GASKET FORMER-C, rKisti Attending Provider Delma GASKET FORMER-C, Kristi Referring Provider Dr. Caleb Carballo DPM Attending Provider [phone] FLOYD GUARDADO Primary Care Unavailable FLOYD GUARDADO Primary Care Unavailable HARDIK WILKERSON Referring Unavailable FLOYD GUARDADO Primary Care Unavailable WEIGHT, ANTONIO Attending Unavailable FLOYD GUARDADO Primary Care Unavailable WEIGHT, ANTONIO Referring Unavailable WEIGHT, CHRISTIVANA Attending Unavailable ОЛЕГ, FLOYD Daugherty Primary Care Unavailable SCHARELI, FLOYD Daugherty Primary Care Unavailable WEIGHT, CHRISTIVANA Referring Unavailable FLOYD GUARDADO Primary Care Unavailable FLOYD GUARDADO Primary Care Unavailable HARDIK WILKERSON A Referring Unavailable FLOYD GUARDADO Primary Care Unavailable MASCIHARDIK A Referring Unavailable SCHFLOYD SUMNER Primary Care Unavailable MASCHARDIK Rosenthal Attending Unavailable HARDIK WILKERSON Referring Unavailable SCHFLOYD SUMNER Primary Care Unavailable Qi Rankin Attending Unavailable FLOYD GUARDADO Primary Care Unavailable SCHFLOYD SUMNER Primary Care Unavailable SCHFLOYD SUMNER Primary Care Unavailable WEIGHT, CATINAER Referring Unavailable SCHFLOYD SUMNER Primary Care Unavailable WEIGHT, CATINAER Referring Unavailable WEIGHT, ANTONIO Attending Unavailable FLOYD GUARDADO E Primary Care Unavailable WEIGHT, ANTONIO Attending Unavailable SCHFLOYD SUMNER E Primary Care Unavailable SCHFLOYD SUMNER E Primary Care Unavailable WEIGHT, CATINAER Referring Unavailable SCHFLOYD SUMNER E Primary Care Unavailable HARDIK WILKERSON Referring Unavailable HARIDK WILKERSON Attending Unavailable FLOYD GUARDADO Primary Care Unavailable HARDIK WILKERSON Referring Unavailable WEIGHT, ANTONIO Referring Unavailable WEIGHT, ANTONIO Attending Unavailable FLOYD GUARDADO E Primary Care Unavailable WEIGHT, CATINAER Admitting Unavailable WEIGHT, ANTONIO Attending Unavailable FLOYD GUARDADO Primary Care Unavailable SCHFLOYD SUMNER Primary Care Unavailable SCHFLOYD SUMNER Primary Care Unavailable SCHFLOYD SUMNER Primary Care Unavailable HARDIK WILKERSON Referring Unavailable SCHFLOYD SUMNER Primary Care Unavailable FLOYD GUARDADO Primary Care Unavailable ALEXUS PALACIOS Referring Unavailable FLOYD GUARDADO Primary Care Unavailable ALEXUS PALACIOS Referring Unavailable ALEXUS PALACIOS Attending Unavailable FLOYD GUARDADO Primary Care Unavailable Amrita Harris Attending Unavailable Floyd Guardado Primary Care Unavailable Floyd Guardado Referring Unavailable Floyd Guardado Referring Unavailable Floyd Guardado Attending Unavailable Floyd Guardado Primary Care Unavailable Floyd Guardado Referring Unavailable SchFloyd sumner Primary Care Unavailable Floyd Guardado Attending Unavailable Floyd Guardado Primary Care Unavailable Adelina Valderrama Attending Unavailable Adelina Valderrama Referring Unavailable Floyd Guardado Attending Unavailable Floyd Guardado Primary Care Unavailable Floyd Guardado Referring Unavailable SchFloyd sumner Primary Care Unavailable Floyd Guardado Attending Unavailable Floyd Guardado Primary Care Unavailable Kristi Nguyễn NP Attending Unavailable Kristi Nguyễn NP Referring Unavailable Floyd Guardado Primary Care Unavailable Caleb Carballo Attending Unavailable Floyd Guardado Primary Care Unavailable Schareli, Floyd E Attending Unavailable Floyd Guardado Referring Unavailable Mahad Lim Attending Unavailable Floyd Guardado Primary Care Unavailable Amrita Harris Attending Unavailable Floyd Guardado Primary Care Unavailable Floyd Guardado Referring Unavailable Allergies Allergy Classification Reported Allergen(s) Allergy Type Date of Onset Reaction(s) Facility Cephalosporins (antibiotic) (2 sources) Cephalexin Drug Allergy 01-11-2022 [facility] Work Phone: (20 sources) Cephalexin; Translations: [CEPHALEXIN] Drug Allergy 01-11-2022 [facility] Work Phone: (1 source) Cephalexin Drug Allergy 02-04-2025 [facility] Repository Medications Current Medications Medication Drug Class(es) Dates Sig (Normalized) Sig (Original) acetaminophen 325 mg oral tablet (20 sources) Start: 11-21-2023 take 2 tablets by mouth every four hours as needed acetaminophen (TYLENOL) 325 mg tablet Take 2 tablets by mouth every 4 hours as needed for pain. 30 tablet 11/21/2023 Active Start: 04-28-2017 End: 06-10-2023 take 2 tablets by mouth every four hours as needed for pain Acetaminophen 500 MG tablet Discontinued 1000 mg PO Q4H as needed for Pain April 28, 2017 12:00am June 10, 2023 7:43pm Start: 04-28-2017 End: 06-10-2023 take 1000 mg by mouth every four hours Acetaminophen Discontinued 1000 MG PO Q4H April 28, 2017 12:00am June 10, 2023 7:43pm Comment on above: Take 2 tablets by [facility] every 4 hours as needed for pain. acetaminophen 325 mg / HYDROcodone bitartrate 5 mg oral tablet (20 sources) Opioid Agonist Start: 3 End: take 1 tablet by mouth every four hours as needed for pain HYDROcodone-acetaminop hen (NORCO) 5-325 mg per tablet Indications: Postoperative pain Take 1 tablet by mouth every 4 hours as needed for pain for up to 5 days. 15 tablet 0 07/10/2023 07/15/2023 Active Start: 06-20-2023 End: 07-10-2023 take 1 tablet by mouth every six hours as needed for pain Hydrocodone-Acetaminophen 5-325 mg table t Active 1 {tbl} PO EVERY 6 HOURS NEEDED as needed for Pain 10 June 24, 2023 Start: 06-20-2023 take 1 tablet by arianna th every six hours as needed Hydrocodone-Acetaminophen Active 1 TABLE T PO EVERY 6 HOURS NEEDED 10 June 24, 2023 Start: 05-14-2023 End: 07-03-2023 HYDROcodone-acetaminophen (N ORCO) 5-325 mg per tablet Take by mouth twice daily. 0 05/14/2023 07/03/2023 Discontinued Start: 05-14-2023 take 1 tablet by arianna th every six hours as needed Hydrocodone-Acetaminophen Active 1 TABLE T PO EVERY 6 HOURS NEEDED 12 May 14, 2023 Comment on above: Take 1 tablet by arianna th every 6 hours as needed for pain for up to 7 days. Take by mouth twice daily. Take 1 tablet by arianna th every 4 hours as needed for pain for up to 5 days. acetaminophen 325 mg / oxyCODONE hydrochloride 5 mg oral tablet (10 sources) Opioid Agonist Start: 06-10-2023 take 1 tablet by mouth every six hours as needed for pain Oxycodone-Acetam inophen 5-325 mg tablet Active 1 {tbl} PO EVERY 6 HOURS NEEDED as needed for Pain 10 June 10, 2023 Start: 06-10-2023 take 1 tablet by arinana th every six hours as needed Oxycodone-Acetaminophen Active 1 TABLET PO EVERY 6 HOURS NEEDED 10 June 10, 2023 amLODIPine 10 mg oral tablet (20 sources) Dihydropyridine Calcium Channel Jessi Start: 07-07-2024 take 1 tablet by mouth once daily amLODIPine (NORVASC) 10 mg tablet Take 10 mg by mouth once daily. 07/07/2024 Active Start: 06-20-2023 End: 02-08-2024 take 4 tablets by mouth once daily amLODIPine (NORVASC) 2.5 mg tablet Take 10 mg by mouth once daily. 0 06/20/2023 02/08/2024 Discontinued Start: 06-20-2023 take 1 tablet by arianna th once daily Amlodipine 2.5 mg tablet Active 2.5 mg PO DAILY June 20, 2023 12:00am Comment on above: Take 1 tablet by arianna th every afternoon. Take 1 tablet by arianna once daily. Take 10 mg by mouth once daily. buPROPion hydrochloride 75 mg oral tablet (20 sources) Aminoketone Start: 004 End: 023 take 1 tablet by mouth twice daily buPROPion (WELLBUTRIN) 75 mg tablet Take 75 mg by mouth twice daily. 04/28/2017 Active Comment on above: 1 tablet twice a day Take 75 mg by mouth twice daily. cephalexin 500 mg oral capsule (2 sources) Cephalosporin Antibacterial Start: 022 Cephalexin Active 500 MG PO EVERY 12 HOURS January 02, 2022 10:36pm Please give at 8 AM and 8 PM daily until gone cholecalciferol 0.05 mg oral capsule (20 sources) Vitamin D Start: 017 take 1 capsule by mouth once daily Cholecalciferol (Vitamin D3) (Vitamin D3) 2,000 UNIT capsule Active 2000 UNIT PO DAILY April 28, 2017 12:00am Cholecalciferol, Vitamin D3, (VITAMIN D-3) 2,000 unit cap Take by mouth. 0 Active Comment on above: Take by mouth. Take by mouth once d aily. Take 1 capsule by [facility] once daily. clonazePAM 0.5 mg oral tablet (20 sources) Benzodiazepine Start: 06-04-2022 Clonazepam 0.5 mg tablet Active 1 {tbl} PO TWICE A DAY June 04, 2022 12:00am Start: 07-17-2021 take 1 tablet by arianna twice daily clonazePAM (KLONOPIN) 0.5 mg tablet Take 1 tablet by mouth twice daily. 07/17/2021 Active Comment on above: Take 1 tablet by arianna twice daily. dapagliflozin 10 mg oral tablet (20 sources) Sodium-Glucose Cotransporter 2 Inhibitor Start: 3 take 1 tablet by mouth once daily FARXIGA 10 mg tablet Take 10 mg by mouth once daily. 04/16/2023 Active Comment on above: Take 10 mg by mouth once daily. docusate sodium 100 mg oral capsule (15 sources) Start: 4 End: 4 take 1 capsule by mouth twice daily docusate sodium (COLACE) 100 mg capsule Take 1 capsule by mouth two times a day for 15 days. 30 capsule 0 03/21/2024 04/05/2024 Active Start: 11-21-2023 End: 02-08-2024 take 1 capsule by mouth twice daily docusate sodium (COLACE) 100 mg capsule Take 1 capsule by mouth two times a day. 30 capsule 0 11/21/2023 02/08/2024 Discontinued Comment on above: Take 1 capsule by mo ut two times a day. doxycycline monohydrate 100 mg oral capsule (20 sources) Tetracycline-clas s Drug Start: 09-30-2023 End: 10-05-2023 take 1 capsule by mouth twice daily doxycycline monohydrate (MONODOX) 100 mg capsule Take 1 capsule by mouth two times a day for 5 days. 10 capsule 0 09/30/2023 10/05/2023 Active Start: 07-25-2023 End: 09-30-2023 take 1 tablet by mouth twice daily doxycycline (VIBRA-TABS) 100 mg tablet Take 100 mg by mouth twice daily. 0 07/25/2023 09/30/2023 Discontinued Start: 11-10-2015 End: 11-13-2015 take 1 capsule by mouth twice daily Doxycycline Hyclate 100 MG capsule Discontinued 100 mg PO TWICE A DAY November 10, 2015 1:00am November 13, 2015 11:05am Comment on above: Take 100 mg by mouth twice daily. Take 1 capsule by [facility] two times a day for 5 days. 0.5 ml dulaglutide 1.5 mg/ml auto-injector (20 sources) GLP-1 Receptor Agonist Start: 023 inject 0.75 mg by subcutaneous injection every week TRULICITY 0.75 mg/0.5 mL pen injector Inject 0.75 mg subcutaneously one time a week. 04/07/2023 Active Comment on above: Inject 0.75 mg subcu taneously one time a week. enteric contrast (will be provided with radiology test) (16 sources) Start: 024 enteric contrast (will be provided with radiology test) Indications: Malignant neoplasm of testicle, unspecified laterality, unspecified whether descended or undescended (HCC) For CT ABD/PEL W IVCON Routine order Administer, As Directed One Time Only, via Oral, Rectal, both Oral and Rectal, Enteric Tube, Stoma or Indwelling Catheter, Enteric Contrast as designated per enteric contrast guidelines 1 Each 11/01/2024 Active Start: 04-28-2024 End: 04-28-2024 take 1 dose by mouth once, then take 1 dose by mouth once enteric contrast (will be provided with radiology test) Indications: 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 ABD/PEL WO Routine order Administer, As Directed One Time Only, via Oral, Rectal, both Oral and Rectal, Enteric Tube, Stoma or Indwelling Catheter, Enteric Contrast as designated per enteric contrast guidelines 1 Each 0 07/03/2023 07/03/2023 Active Start: 06-30-2023 End: 06-30-2023 take 1 dose by mouth once, then take 1 dose by mouth once enteric contrast (will be provided with radiology test) Take 1 Each by mouth one time only for [address] Chest ABD/PEL WO Routine order Administer, As Directed One Time Only, via Oral, Rectal, both Oral and Rectal, Enteric Tube, Stoma or Indwelling Catheter, Enteric Contrast as designated per enteric contrast guidelines 1 Each 0 06/30/2023 06/30/2023 Comment on above: Take 1 Each by mouth one time only for [address] ABD/PEL WO Routine order Administer, As Directed One Time Only, via Oral, Rectal, both Oral and Rectal, Enteric Tube, Stoma or Indwelling Catheter, Enteric Contrast as designated per enteric contrast guidelines Take 1 Each by mouth one time only for [address] Chest ABD/PEL WO Routine order Administer, As Directed One Time Only, via Oral, Rectal, both Oral and Rectal, Enteric Tube, Stoma or Indwelling Catheter, Enteric Contrast as designated per enteric contrast guidelines fluticasone propionate 0.05 mg/actuat metered dose nasal spray (20 sources) Corticosteroid Start: 02-16-2024 Fluticasone Propionate 50 mcg/actuation spray,suspension Active 2 NMA INTRANASAL DAILY February 16, 2024 12:00am Start: 02-16-2024 Fluticasone Pr opionate Active 1 SPRAY INTRANASAL TWICE A DAY February 16, 2024 12:00am Start: 04-28-2017 take 50 ug by inhala tion once daily Fluticasone Propionate (Flovent Diskus) 50 MCG blister with device Active 50 MCG INHALATION DAILY April 28, 2017 12:00am take 2 spray(s) nasa l route once daily fluticasone (FLONASE) 50 mcg/actuation nasal spray Use 2 Sprays in each nostril once daily. Active Comment on above: Use 2 Sprays in each nostril once daily. fluvoxaMINE maleate 100 mg oral tablet (20 sources) Serotonin Reuptake Inhibitor Start: 08-07-2021 take 1 tablet by mouth twice daily fluvoxaMINE (LUVOX) 100 mg tablet Take 1 tablet by mouth twice daily. 08/07/2021 Active Start: 04-28-2017 take 1 tablet by arianna twice daily Fluvoxamine 50 MG tablet Active 100 mg PO TWICE A DAY April 28, 2017 12:00am Start: 04-28-2017 take 100 mg by mouth twice daily Fluvoxamine Active 100 MG PO TWICE A DAY April 28, 2017 12:00am Start: 11-24-2002 End: 07-03-2023 LUVOX 50MG TABLET Take one(1 ) tablet two(2) times daily. 0 11/24/2002 07/03/2023 Discontinued Start: 11-24-2002 LUVOX 50MG TAB LET Take one(1) tablet two(2) times daily. 0 11/24/2002 Active Comment on above: Take one(1) tablet t wo(2) times daily. Take 1 tablet by arianna th twice daily. furosemide 20 mg oral tablet (20 sources) Loop Diuretic Start: 08-03-20 23 End: 04-08-20 24 take 1 tablet by mouth once daily furosemide (LASIX) 20 mg tablet take 1 tablet by mouth daily 30 tablet 1 03/05/2024 Active Comment on above: Take 1 tablet by arianna th once daily for 7 days. Take 1 tablet by arianna th once daily. take 1 tablet by arianna th daily glimepiride 1 mg oral tablet (20 sources) Sulfonylurea Start: 06-04-20 22 take 1 tablet by mouth once daily Glimepiride 1 mg tablet Active 1 mg PO DAILY June 04, 2022 12:00am hydrOXYzine pamoate 50 mg oral capsule (20 sources) Antihistamine Start: 08-06-20 21 take 1 capsule by mouth twice daily hydrOXYzine pamoate (VISTARIL) 50 mg capsule Take 1 capsule by mouth twice daily. 08/06/2021 Active Comment on above: Take 1 capsule by [facility] twice daily. 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 Discontinue saline lock post exam. If Pt. has a central line or IVAD, may access for administration according to line specific nursing protocol. Once exam is complete flush line and de-access according to line specific nursing protocol in the CT contrast administration guidelines link. 1 each 03/02/2025 Active Start: 11-01-2024 iv contrast (w ill be provided with radiology test) Indications: Malignant neoplasm of testicle, unspecified laterality, unspecified whether descended or undescended (HCC) CT ABD/PEL -Inject, intravenously, once for 1 dose.No IV access, insert saline lock prior to the beginning of sedation, infusion, injection of imaging exam. Discontinue saline lock post exam. If Pt. has a central line or IVAD, may access for administration according to line specific nursing protocol. Once exam is complete flush line and de-access according to line specific nursing protocol in the CT contrast administration guidelines link. 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 Discontinue saline lock post exam. If Pt. has a central line or IVAD, may access for administration according to line specific nursing protocol. Once exam is complete flush line and de-access according to line specific nursing protocol in the CT contrast administration guidelines link. 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 Discontinue saline lock post exam. If Pt. has a central line or IVAD, may access for administration according to line specific nursing protocol. Once exam is complete flush line and de-access according to line specific nursing protocol in the CT contrast administration guidelines link. 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 Discontinue saline lock post exam. If Pt. has a central line or IVAD, may access for administration according to line specific nursing protocol. Once exam is complete flush line and de-access according to line specific nursing protocol in the CT contrast administration guidelines link. 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 Discontinue saline lock post exam. If Pt. has a central line or IVAD, may access for administration according to line specific nursing protocol. Once exam is complete flush line and de-access according to line specific nursing protocol in the CT contrast administration guidelines link. 1 Each 0 04/01/2024 Active ammonium lactate 120 mg/ml topical lotion (20 sources) Start: 04-28-2017 ammonium lacta te (LAC-HYDRIN) 12 % lotion Ammonium Lactate (Amlactin) 57 GM lotion Active 57 GM TP TWICE A DAY April 28, 2017 4:39pm 04/28/2017 Active Start: 04-28-2017 ammonium lacta te (LAC-HYDRIN) 12 % lotion Ammonium Lactate (Amlactin) 57 GM lotion Active 57 GM TP TWICE A DAY April 28, 2017 4:39pm 0 04/28/2017 Active Start: 04-28-2017 Ammonium Lacta te (Amlactin) 57 GM lotion Active 57 g TP TWICE A DAY April 28, 2017 12:00am Comment on above: Ammonium Lactate (Am lactin) 57 GM lotion Active 57 GM TP TWICE A DAY April 28, 2017 4:39pm lamoTRIgine 25 mg oral tablet (20 sources) Mood Stabilizer, Anti-epileptic Agent Start: 06-04-2022 Lamotrigine 100 mg tablet Active 1 {tbl} PO TWICE A DAY June 04, 2022 12:00am Start: 06-04-2022 Lamotrigine 25 mg tablet Active 1 {tbl} PO DAILY June 04, 2022 12:00am AM Start: 08-07-2021 take 1 tablet by arianna th twice daily lamoTRIgine (LAMICTAL) 100 mg tablet Take 1 tablet by mouth twice daily. 08/07/2021 Active Start: 05-19-2006 End: 07-03-2023 take 1 tablet by mouth once daily in the morning lamoTRIgine (LAMICTAL) 25 mg tablet Take 1 tablet by mouth every morning. 04/28/2017 Active Comment on above: 1 tablets at 8am,2 t ablets at 11am,2 tablets at 4pm,4 tablets at 8pm Take 1 tablet by arianna th every morning. Take 1 tablet by arianna th twice daily. montelukast 10 mg oral tablet (20 sources) Leukotriene Receptor Antagonist Start: 017 take 1 tablet by mouth at bedtime Montelukast (Singulair) 10 MG tablet Active 10 MG PO AT BEDTIME April 28, 2017 12:00am Comment on above: Take 10 mg by mouth daily at bedtime. nitrofurantoin, macrocrystals 25 mg / nitrofurantoin, monohydrate 75 mg oral capsule (3 sources) Nitrofuran Antibacterial Start: End: take 1 capsule by mouth twice daily nitrofurantoin monohydrate and macrocrystal (MACROBID) 100 mg capsule Take 1 capsule by mouth twice daily for 7 days. 14 capsule 0 02/14/2022 02/21/2022 Active Comment on above: Take 1 capsule by [facility] twice daily for 7 days. ondansetron 4 mg disintegrating oral tablet (20 sources) Serotonin-3 Receptor Antagonist Start: 023 take 1 tablet by mouth every eight hours as needed for nausea ondansetron (ZOFRAN) 8 mg tablet Indications: cancer chemotherapy-induced nausea and vomiting Take 1 tablet by mouth every 8 hours as needed for nausea/vomiting. 30 tablet 2 07/11/2023 Active Start: 06-13-2023 take 1 tablet by arianna every eight hours as needed for nausea and vomiting Ondansetron 4 mg tablet,disintegrating Active 4 mg PO Q8H as needed for nausea and vomiting November 11, 2024 1:00am Comment on above: Take 1 tablet by arianna every 8 hours as needed for nausea/vomiting. Take 4 mg by mouth e very 8 hours as needed. oseltamivir 30 mg oral capsule (1 source) Neuraminidase Inhibitor Start: 11-11-20 24 take 1 capsule by mouth once daily Oseltamivir (Tamiflu) 30 mg capsule Active 30 mg PO DAILY 5 5 November 11, 2024 1:00am oxybutynin chloride 5 mg oral tablet (20 sources) Cholinergic Muscarinic Antagonist Start: 04-28-20 17 take 5 mg by mouth twice daily Oxybutynin Chloride Active 5 MG PO TWICE A DAY April 28, 2017 12:00am Comment on above: Take 5 mg by mouth t wice daily. Take 5 mg by mouth t wo times a day. potassium chloride 1.33 meq/ml oral solution (20 sources) Start: 03-03-20 take 15 mL by mouth once daily potassium chloride 20 mEq/15 mL solution Take 15 mL by mouth once daily. 473 mL 2 03/03/2024 Active Start: 09-30-2023 End: 02-08-2024 take 15 mL by mouth once daily potassium chloride 20 m Eq/15 mL solution Take 15 mL by mouth once daily. 473 mL 0 09/30/2023 02/08/2024 Discontinued Start: 09-08-2023 End: 09-30-2023 take 1 tablet by mouth once daily potassium chloride ER (KLOR-CON) 20 mEq tablet Take 1 tablet by mouth once daily. 30 tablet 2 09/08/2023 09/30/2023 Discontinued Comment on above: Take 1 tablet by arianna th once daily. Take 15 mL by mouth once daily. QUEtiapine 200 mg oral tablet (20 sources) Atypical Antipsychotic Start: 06-04-2022 Quetiapine 200 mg tablet Active 1 {tbl} PO TWICE A DAY June 04, 2022 12:00am Start: 06-04-2022 take 1 tablet by arianna th twice daily Quetiapine Active 1 TABLET PO TWICE A DAY June 04, 2022 12:00am take 1 tablet by arianna th twice daily QUEtiapine (SEROQUEL) 200 mg tablet Take 200 mg by mouth twice daily. Active Comment on above: Take 100 mg by mouth twice daily. Take 200 mg by mouth twice daily. 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 0 09/02/2007 Active Start: 09-02-2007 End: 07-03-2023 take 1 tablet by mouth three times daily risperiDONE (RISPERDAL) 1 mg tablet Take 1 tablet by mouth three times daily. 04/28/2017 07/03/2023 Discontinued Comment on above: 1tab @ 7am, 1tab @11 am 1@4pm 1@8pm Take 1 tablet by arianna th three times daily. Take by mouth. Take 1 mg by mouth f our times daily. spironolactone 25 mg oral tablet (20 sources) Aldosterone Antagonist Start: 03-04-20 End: 04-29-20 take 1 tablet by mouth once daily spironolactone (ALDACTONE) 25 mg tablet TAKE 1 TABLET BY MOUTH DAILY 30 tablet 2 04/29/2025 Active Comment on above: Take 1 tablet by arianna once daily. Completed/Discontinued Medications Medication Drug Class(es) Dates Sig (Normalized) Sig (Original) acetaminophen 300 mg / codeine phosphate 30 mg oral tablet (9 sources) Opioid Agonist Start: 06-30-2023 End: 07-07-2023 take 1 tablet by mouth every four hours as needed acetaminophen-code ine (TYLENOL-COD #3) 300-30 mg per tablet Indications: Abdominal pain, unspecified abdominal location Take 1 tablet by mouth every 4 hours as needed for up to 7 days. 10 tablet 0 06/30/2023 07/07/2023 Comment on above: Take 1 tablet by arianna every 4 hours as needed for up to 7 days. amoxicillin 875 mg / clavulanate 125 mg oral tablet (20 sources) Penicillin-class Antibacterial Start: 11-10-2015 End: 11-13-2015 take 1 tablet by mouth every twelve hours Amoxicillin-Pot Clavulanate 875 MG tablet Discontinued 875 mg PO Q12H November 10, 2015 1:00am November 13, 2015 11:05am benzonatate 100 mg oral capsule (20 sources) Non-narcotic Antitussive Start: 11-05-2023 End: 02-08-2024 take 1 capsule by mouth every eight hours as needed benzonatate (TESSALON PERLES) 100 mg capsule Take 1 capsule by mouth three times a day as needed for cough. 21 capsule 0 11/05/2023 02/08/2024 Discontinued Start: 07-21-2018 End: 02-08-2024 take 2 capsules by mouth every eight hours as needed benzonatate (TESSALON PERLES) 100 mg capsule Take 2 capsules by mouth three times daily as needed. 30 capsule 07/21/2018 02/08/2024 Discontinued Comment on above: Take 2 capsules by m out three times daily as needed. Take 1 capsule by [facility] three times a day as needed for cough. desmopressin acetate 0.2 mg oral tablet (12 sources) Vasopressin Analog, Factor VIII Activator Start: End: DDAVP 0.2MG TABLET 3 tablets at bedtime 60 12 04/10/2004 07/03/2023 Discontinued Comment on above: 3 tablets at bedtime diphenhydrAMINE hydrochloride 50 mg oral capsule (12 sources) Histamine-1 Receptor Antagonist End: take 1 capsule by mouth every six hours as needed diphenhydrAMINE (BANOPHEN) 50 mg capsule Take 50 mg by mouth every 6 hours as needed. 07/03/2023 Discontinued Comment on above: Take 50 mg by mouth every 6 hours as needed. enalapril maleate 10 mg oral tablet (20 sources) Angiotensin Converting Enzyme Inhibitor Start: End: take 1 tablet by mouth once daily Enalapril Maleate 10 mg Tablet Discontinued 10 mg PO DAILY June 04, 2022 12:00am May 15, 2023 3:01pm Start: 06-05-2007 End: 07-03-2023 take 1 tablet by mouth twice daily enalapril (VASOTEC) 5 mg ORAL Tab Indications: Proteinuria , Unspecified essential hypertension Take one(1) tablet BID 60 6 06/05/2007 07/03/2023 Discontinued Comment on above: Take one(1) tablet B ID Take 1 tablet by [facility] once daily. lidocaine 25 mg/ml / prilocaine 25 mg/ml topical cream (20 sources) Antiarrhythmic, Amide Local Anesthetic Start: 07-11-20 End: 02-08-20 lidocaine-prilocain e (EMLA) 2.5-2.5 % cream Indications: 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) Apply to affected area as needed. 30 g 0 07/11/2023 02/08/2024 Discontinued Comment on above: Apply to affected ar ea as needed. metFORMIN hydrochloride 500 mg oral tablet (20 sources) Biguanide Start: 06-04-20 End: 06-10-20 take 1 tablet by mouth once daily Metformin 500 mg tablet Discontinued 500 mg PO DAILY June 04, 2022 12:00am June 10, 2023 7:44pm On Hold: Ordered promethazine hydrochloride 25 mg oral tablet (20 sources) Phenothiazine Start: 07-14-20 End: 02-08-20 take 1 tablet by mouth every six hours as needed promethazine (PHENERGAN) 25 mg tablet Take 1 tablet by mouth every 6 hours as needed. FOR NAUSEA 30 tablet 2 07/14/2023 02/08/2024 Discontinued Comment on above: Take 1 tablet by arianna every 6 hours as needed. FOR NAUSEA silver sulfADIAZINE 10 mg/ml topical cream (13 sources) Sulfonamide Antibacterial Start: 05-15-20 End: 06-10-20 Silver Sulfadiazine 1 % cream Discontinued 1 NMA TOPICAL TWICE A DAY May 15, 2023 12:00am June 10, 2023 7:45pm apply a 1.5 mm thickness sulfamethoxazole 800 mg / trimethoprim 160 mg oral tablet (9 sources) Dihydrofolate Reductase Inhibitor Antibacterial, Sulfonamide Antimicrobial Start: 06-24-20 End: 02-16-20 Sulfamethoxazole-Tr imethoprim 800-160 mg tablet Discontinued 1 {tbl} PO TWICE A DAY June 24, 2023 12:00am February 16, 2024 2:10pm Start: 06-24-2023 End: 02-16-2024 take 1 tablet by mouth twice daily Sulfamethoxazole-Trimethoprim Discontinu ed 1 TABLET PO TWICE A DAY June 24, 2023 12:00am February 16, 2024 2:10pm Problems Active Problems Problem Classification Problem Date Documented Date Episodic/Chronic Abdominal pain (1 source) Abdominal pain; Translations: [Unspecified abdominal pain] 06-30-2023 Episodic Acute and unspecified renal failure (20 sources) [id number] renal failure; Translations: [Acute kidney failure, unspecified] Episodic Comment on above: STAGE 3/NEPHRALOGIST Anxiety disorders (20 sources) Mixed anxiety and depressive disorder; Translations: [Other specified anxiety disorders] Onset: 3 11-14-2023 Chronic Asthma (20 sources) Mild intermittent asthma; Translations: [Mild intermittent asthma, uncomplicated] Onset: 3 11-14-2023 Chronic Attention-deficit, conduct, and disruptive behavior disorders (20 sources) Oppositional defiant disorder; Translations: [Oppositional defiant disorder] Onset: 3 03-12-2004 Chronic Calculus of urinary tract (14 sources) Kidney stone; Translations: [Calculus of kidney] 05-14-2023 Episodic Cancer of kidney and renal pelvis (3 sources) Malignant tumor of kidney; Translations: [Malignant neoplasm of unspecified kidney, except renal pelvis] Onset: 4 03-30-2024 Chronic Cancer of testis (20 sources) Malignant tumor of testis; Translations: [Malignant neoplasm of right testis, unspecified whether descended or undescended] Onset: 3 06-17-2023 Chronic Cancer of testis (1 source) History of malignant neoplasm of testis; Translations: [Personal history of malignant neoplasm of testis] 01-27-2024 Episodic Chronic kidney disease (20 sources) Chronic kidney disease stage 3; Translations: [Chronic kidney disease, stage III (moderate)] Onset: 3 Chronic Chronic kidney disease (2 sources) Chronic kidney disease; Translations: [Stage 3b chronic kidney disease (HCC)] Onset: 3 Chronic ulcer of skin (1 source) Non-pressure chronic ulcer of other part of left foot with fat layer exposed; Translations: [Non-pressure chronic ulcer of other part of left foot with fat layer exposed] Onset: 5 Chronic Deficiency and other anemia (20 sources) Anemia of chronic disease; Translations: [Anemia of chronic disease] Onset: 3 03-12-2004 Chronic Developmental disorders (20 sources) Intellectual disability; Translations: [Unspecified intellectual disabilities] Onset: 3 03-12-2004 Chronic Diabetes mellitus with complications (2 sources) Type 2 diabetes mellitus with diabetic chronic kidney disease; Translations: [Type 2 diabetes mellitus with unspecified complications] Onset: 4 Chronic Diabetes mellitus without complication (20 sources) Type 2 diabetes mellitus without complication; Translations: [Type 2 diabetes mellitus without complications] Onset: 3 11-14-2023 Chronic Disorders usually diagnosed in infancy, childhood, or adolescence (20 sources) Autism spectrum disorder; Translations: [Other pervasive developmental disorders] Onset: 3 03-12-2004 Chronic Essential hypertension (20 sources) Hypertensive disorder; Translations: [Essential (primary) hypertension] Onset: 3 Chronic Fluid and electrolyte disorders (2 sources) Hypokalemia; Translations: [Hypokalemia] 03-03-2024 Episodic Genitourinary symptoms and ill-defined conditions (20 sources) Nocturnal enuresis; Translations: [Nocturnal enuresis] Onset: 3 03-12-2004 Chronic Gout and other crystal arthropathies (4 sources) Chronic gouty arthritis; Translations: [Idiopathic chronic gout, vertebrae, without tophus (tophi)] Onset: 4 02-02-2024 Chronic Immunizations and screening for infectious disease (11 sources) Patient encounter status; Translations: [Encounter for screening for human immunodeficiency virus [HIV]] 07-03-2023 Episodic Influenza (1 source) Influenza due to Influenza A virus; Translations: [Influenza due to other identified influenza virus with other respiratory manifestations] 11-19-2024 Episodic Non-Hodgkin`s lymphoma (13 sources) Malignant lymphoma; Translations: [Non-Hodgkin lymphoma, unspecified, unspecified site] 05-14-2023 Chronic Other aftercare (1 source) Device in situ; Translations: [Encounter for adjustment and management of vascular access device] 07-13-2024 Episodic Other and ill-defined heart disease (20 sources) Dysfunction of right cardiac ventricle; Translations: [Heart disease, unspecified] Onset: 4 03-17-2024 Chronic Other connective tissue disease (2 sources) Tendinitis; Translations: [Enthesopathy, unspecified] 02-16-2024 Episodic Other connective tissue disease (1 source) Swelling of lower limb; Translations: [Other specified soft tissue disorders] 03-03-2024 Episodic Other connective tissue disease (1 source) Pain in left foot; Translations: [Pain in left foot] 08-13-2021 Episodic Other diseases of kidney and ureters (20 sources) Hyperparathyroidism due to renal insufficiency; Translations: [Secondary hyperparathyroidism of renal origin] Onset: 3 05-13-2023 Chronic Other diseases of kidney and ureters (1 source) Secondary hyperparathyroidism of renal origin; Translations: [Hyperparathyroidism due to renal insufficiency (HCC)] Onset: 3 Chronic Other endocrine disorders (1 source) Primary hyperparathyroidism; Translations: [Primary hyperparathyroidism] Chronic Other nervous system disorders (1 source) Other acute postprocedural pain; Translations: [Postoperative pain] Onset: 3 Episodic Other nutritional; endocrine; and metabolic disorders (20 sources) Body mass index 40+ - severely obese; Translations: [Morbid (severe) obesity due to excess calories] 03-14-2021 Chronic Other nutritional; endocrine; and metabolic disorders (20 sources) Obese class II; Translations: [Obesity, unspecified] Onset: 4 03-17-2024 Chronic Other nutritional; endocrine; and metabolic disorders (2 sources) H/O: diabetes mellitus; Translations: [Personal history of other endocrine, nutritional and metabolic disease] 02-16-2024 Episodic Other screening for suspected conditions (not mental disorders or infectious disease) (1 source) Encounter for screening for other disorder; Translations: [Screening for genitourinary condition] Onset: 5 Episodic Other skin disorders (20 sources) Sebaceous cyst of skin; Translations: [Sebaceous cyst] 05-16-2022 Episodic Comment on above: Scalp cysts x4 Other skin disorders (13 sources) Sebaceous cyst; Translations: [Sebaceous cyst] Episodic Residual codes; unclassified (20 sources) Obstructive sleep apnea syndrome; Translations: [Obstructive sleep apnea (adult) (pediatric)] Onset: 3 11-14-2023 Chronic Residual codes; unclassified (1 source) Obstructive sleep apnea (adult) (pediatric); Translations: [RONALD (obstructive sleep apnea)] Onset: 3 Chronic Secondary malignancies (20 sources) Secondary malignant neoplasm of lymph node; Translations: [Secondary and unspecified malignant neoplasm of lymph node, unspecified] Onset: 3 06-05-2023 Chronic Secondary malignancies (7 sources) Secondary and unspecified malignant neoplasm of lymph node, unspecified; Translations: [Secondary and unspecified malignant neoplasm of lymph nodes, site unspecified] Onset: 3 06-05-2023 Chronic Secondary malignancies (20 sources) Secondary malignant neoplasm of retroperitoneal lymph nodes; Translations: [Secondary and unspecified malignant neoplasm of intra-abdominal lymph nodes] Onset: 3 06-30-2023 Chronic Secondary malignancies (4 sources) Secondary and unspecified malignant neoplasm of intra-abdominal lymph nodes; Translations: [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)] Onset: Chronic Septicemia (except in labor) (20 sources) Sepsis; Translations: [Sepsis, unspecified organism] Episodic Skin and subcutaneous tissue infections (20 sources) Cellulitis of lower limb; Translations: [Cellulitis of right lower limb] Episodic Spondylosis; intervertebral disc disorders; other back problems (20 sources) Chronic low back pain; Translations: [Chronic midline low back pain without sciatica] Episodic Suicide and intentional self-inflicted injury (20 sources) Suicidal thoughts; Translations: [Suicidal ideations] 03-16-2021 Episodic Unclassified (1 source) Radiology NM Onset: Unclassified (1 source) NO SHOW 03-10-2024 Past or Other Problems Problem Classification Problem Date Documented Date Episodic/Chronic Acute and unspecified renal failure (20 sources) Renal failure syndrome; Translations: [Unspecified kidney failure] Onset: 11-25-2002 Resolved: 05-27-2006 05-27-2006 Chronic Coagulation and hemorrhagic disorders (20 sources) Platelet count below reference range; Translations: [Thrombocytopenia, unspecified] Onset: 10-02-2023 Resolved: 11-25-2023 10-02-2023 Chronic Complications of surgical procedures or medical care (20 sources) Pulmonary insufficiency following surgery; Translations: [Other postprocedural complications and disorders of respiratory system, not elsewhere classified] Onset: 03-17-2024 03-17-2024 Episodic Deficiency and other anemia (20 sources) Anemia; Translations: [Anemia, unspecified] Onset: 11-25-2002 03-09-2024 Episodic Deficiency and other anemia (1 source) Anemia, unspecified; Translations: [Anemia, unspecified type] Onset: 03-09-2024 Episodic Diabetes mellitus without complication (16 sources) Glycosuria; Translations: [Glycosuria] Onset: 12-06-2024 Episodic Genitourinary symptoms and ill-defined conditions (17 sources) Dysuria; Translations: [Dysuria] Onset: 03-09-2024 Episodic Lymphadenitis (20 sources) Retroperitoneal lymphadenopathy ; Translations: [Localized enlarged lymph nodes] Onset: 06-27-2023 05-15-2023 Episodic Malaise and fatigue (20 sources) Malaise and fatigue; Translations: [Other malaise] Onset: 11-24-2002 03-12-2004 Episodic Other nervous system disorders (20 sources) Postoperative pain ; Translations: [Other acute postprocedural pain] Onset: 03-17-2024 03-17-2024 Episodic Residual codes; unclassified (1 source) Localized edema; Translations: [Localized edema] Onset: 12-22-2024 Episodic Unclassified (20 sources) mrdd 03-14-2021 Unclassified (1 source) Patient encounter status 03-02-2025 Urinary tract infections (20 sources) Urinary tract infectious disease; Translations: [Urinary tract infection, site not specified] Onset: 11-24-2002 Resolved: 08-21-2016 06-24-2023 Episodic Results Test Name Value Interpretation Reference Range Facility MR/Yoselin 03-08-2025 MR/HERBERT [facility] [address] [place] [address] OFFICE VISIT Date of Service: 03/08/25 MR#: [id number] Acct: [id number] Name: DANN PALACIOS Rep #: [id number] : 1990 Provider: JOSE ALEJANDRO Painting Age/Sex: 34/M Location: [facility] Status: Signed with Addenda ADDENDUM by JOSE ALEJANDRO Painting on 04/08/25 at 1035 Intake Chief Complaint: Back pain Allergies cephalexin (From Keflex) Allergy (Verified 02/04/25 10:45) Rash Assessment and Plan Assessment and Plan (1) Lymphedema: Status: Acute Plan: Addendum to specify that patient has failed 4 or more weeks of conservative efforts at managing his edema including compression stockings/wraps/garments , leg elevation at times of rest, and avoidance of prolonged idle sitting/standing and still has significant persistent symptoms in addition to his edema. He would benefit from lymphedema pumps for improved management of his edema and associated symptoms. 04/08/25 1035 Date Amrita Harris cc: Dr. Floyd Guardado MD * Signed Intake Vital Signs 11/11/24 11:24 03/08/25 15:31 Height 6 ft Weight: 308 lb 4 oz BP 155/95 H Blood Pressure Location Lt brachial Position Sitting Respiration 17 Pulse 97 Pulse Source Monitor Temp 98.4 F Temp Source Temporal Pulse Oximetry (%) 97 Oxygen Delivery Method room air Intake Visit Reasons: 4 WK [employer] Shift Manager Required: No Is patient in pain?: No Allergies cephalexin (From Keflex) Allergy (Verified 02/04/25 10:45) Rash Have you fallen in the past year?: Yes [facility] Medical History [facility] Wears glasses OCD (obsessive compulsive disorder) Anxiety Diabetes Bladder disease Back pain Dietary restriction Non-smoker CPAP (continuous positive airway pressure) dependence Shortness of breath on exertion Hx of testicular biopsy 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 Proteinuria Obstructive uropathy Hyperparathyroidism Prediabetes Sebaceous cyst Autism Severe sepsis Acute on chronic renal failure Cellulitis of right lower extremity Morbid obesity with BMI of 40.0-44.9, adult mrdd Surgical History History of nasal surgery History of excision of mass Social History adopted: Yes housing: house Smoking Status: Never smoker HPI HPI HPI: DANN PALACIOS, is a 34 M who presents to the office today for follow-up of bilateral lower extremity lymphedema. He has not received the compression garments that were ordered through [employer]. His wounds have been improving and he has not had any recurrent cellulitis since his last OV. He reports he has been trying to elevate his legs at times of rest. 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 He does not have any history of VTE; venous duplex in 11/2024 was negative for any DVT. His history is otherwise significant for mental disability, autism, morbid obesity, prediabetes, hypertension, and chronic renal failure stage III since his teens. He was accompanied to his appointment today by a detention sergeant from his penitentiary. ROS General General: No weight change, appetite, fatigue, colon cancer, breast cancer or weakness HEENT HEENT: No difficulty swallowing, eye injury, eye surgery, swollen glands or hoarseness Endo Endocrine: Yes diabetes mellitus; No thyroid disease, thyroid cancer, Hair loss, heat intolerance or cold intolerance Skin Skin: No rash or changing moles Musc Musculoskeletal: No back problems, arthritis, rheumatoid arthritis, gout or joint pain Cardio Cardiovascular: Yes high blood pressure; No murmur, pacemaker, heart disease, atrial fibrillation, heart attack, heart stent, palpitations, shortness of breath with exertion or chest pain Psych Psychiatric: Yes anxiety; No depression or hearing voices Resp Respiratory: No shortness of breath, No sleep apnea, No cough, No COPD, No asthma, No emphysema and No wheezing Gastro Gastrointestinal: No abdominal pain, No nausea or vomiting, No diarrhea, No constipation, No blood in stool, No acid reflux, No hemorrhoids, No ulcers, No gallbladder problem and No black,tarry stools Fabian Hematologic: No blood thinners, No blood disorders, No bleeding, No anemia and No blood clots Neuro Neurologic: No system reviewed and no additional complaints, except as documented, No as per HPI, No abnormal gait, Yes abnormal hearing, No abnormal movements, No abnormal speech, No behavioral changes, No burning sensati (more content not included)... Normal [facility] CNOVon 02-03-2025 CNOV Normal [facility] CNPTOUTREACHon 02-03-2025 CNPTOUTREACH Normal [facility] CT ABD/PEL WO IVCONon 2024 CT ABD/PEL WO IVCON Normal [facility] CT Abdomen and Pelvis WO con traston 02-03-2025 IMPRESSION: Stable to slightly decreased partly calcified retroperitoneal lymphadenopathy. Borderline sized morphologically normal bilateral groin nodes. Advise continued biochemical correlation and surveillance imaging Severely distended urinary bladder with bilateral pelvocaliectasis and ureterectasis more pronounced from prior likely secondary to reflux Operations Staff Specialist Security: [facility] Transcribe Date/Time: Feb 03 2025 2:15P Dictated by : SHAILA MCINTYRE MD This examination was interpreted and the report reviewed and electronically signed by: KIRAN MCDANIEL MD on Feb 03 2025 4:53PM [facility] DIVISION OF RADIOLOGY * * *Final Report* * * DATE OF EXAM: Feb 03 2025 1:48PM [facility] 0531 - CT ABD/PEL WO IVCON / PROCEDURE REASON: Malignant neoplasm of testicle, unspecified laterality, unspecified whether desc * * * * Physician Interpretation * * * * EXAMINATION: CT ABDOMEN AND PELVIS WITHOUT IV CONTRAST CLINICAL HISTORY: 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 Treated with 4 cycles of etoposide and carboplatin. TECHNIQUE: Non-IV contrast imaging of the abdomen and pelvis was performed using standard technique, scanning from just above the dome of the diaphragm to the symphysis pubis. Unenhanced imaging is limited for the evaluation of some intra-abdominal and pelvic pathology. MQ: CTAPWO_3 Contrast: IV: None Oral: 450 ml of Omni 240 10-25ml diluted with water CT Radiation dose: Integrated Dose-length product (DLP) for this visit = 2146 mGy*cm. CT Dose Reduction Employed: Automated exposure control (AEC) COMPARISON: CT abdomen pelvis 07/02/2024, PET/CT 12/15/2023. RESULT: Abdomen / Pelvis: Liver: Diffuse hepatic steatosis. Biliary: The gallbladder is collapsed without radiopaque cholelithiasis. Spleen: No splenomegaly. Pancreas: Unremarkable. Adrenals: No mass. Kidneys: Severely kidneys with multiple bilateral renal cysts, many with wall calcifications, as well as other lesions that are too small to characterize but stable and likely benign. Nonobstructing 5 mm LEFT lower pole kidney stone. Bilateral ureterectasis and pelvocaliectasis more pronounced from prior likely secondary to severe bladder distention and reflux. GI Tract: No bowel dilation. Normal appendix. Lymph Nodes: Redemonstrated retroperitoneal lymphadenopathy several with cavitation, for reference: * 2.0 cm short axis retrocaval node (2:62), previously 2.3 cm. * 1.3 cm left periaortic node (2:83), stable. * 1.0 cm short axis right external iliac node (2:116), previously 1.2 cm. * 1.0 cm short axis left common iliac node (2:96), stable. Slightly larger morphologically normal bilateral inguinal nodes, for example: * 1.3 cm short axis left inguinal node (2:165), previously 0.8 cm. * 1.2 cm short axis medial left inguinal node (2:157), previously 0.9 cm. * 1.2 cm short axis right inguinal node (2:166), previously 1.0 cm. Mesentery/peritoneum: No ascites. Retroperitoneum: Surgical clips throughout the right retroperitoneum from prior lymph node dissection. No mass. Vasculature: No abdominal aortic or iliac artery aneurysm. Pelvis: No mass or ascites. Severely distended urinary bladder. Bones/Soft Tissues: Stable 1.2 cm L3 spinous process lytic lesion consistent with biopsy-proven tophaceous gout. No suspicious osseous lesions. Stable osseous degenerative changes. Lower thorax: A chest CT performed will be reported separately. Localizer images: No additional findings. 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 Treated with 4 cycles of etoposide and carboplatin. TECHNIQUE: Non-IV contrast imaging of the abdomen and pelvis was performed using standard technique, scanning from just above the dome of the diaphragm to the symphysis pubis. Unenhanced imaging is limited for the evaluation of some intra-abdominal and pelvic pathology. MQ: CTAPWO_3 Contrast: IV: None Oral: 450 ml of Omni 240 10-25ml diluted with water CT Radiation dose: Integrated Dose-length product (DLP) for this visit = 2146 mGy*cm. CT Dose Reduction Employed: Automated exposure control (AEC) COMPARISON: CT abdomen pelvis 07/02/2024, PET/CT 12/15/2023. RESULT: Abdomen / Pelvis: Liver: Diffuse hepatic steatosis. Biliary: The gallbladder is collapsed without radiopaque cholelithiasis. Spleen: No splenomegaly. Pancreas: Unremarkable. Adrenals: No mass. Kidneys: Severely kidneys with multiple bilateral renal cysts, many with wall calcifications, as well as other lesions that are too small to characterize but stable and likely benign. Nonobstructing 5 mm LEFT lower pole kidney stone. Bilateral ureterectasis and pelvocaliectasis more pronounced from prior likely secondary to severe bladder distention and reflux. GI Tract: No bowel dilation. Normal appendix. Lymph Nodes: Redemonstrated retroperitoneal lymphadenopathy several with cavitation, for reference: * 2.0 cm short axis retrocaval node (2:62), previously 2.3 cm. * 1.3 cm left periaortic node (2:83), stable. * 1.0 cm short axis right external iliac node (2:116), previously 1.2 cm. * 1.0 cm short axis left common iliac node (2:96), stable. Slightly larger morphologically normal bilateral inguinal nodes, for example: * 1.3 cm short axis left inguinal node (2:165), previously 0.8 cm. * 1.2 cm short axis medial left inguinal node (2:157), previously 0.9 cm. * 1.2 cm short axis right inguinal node (2:166), previously 1.0 cm. Mesentery/peritoneum: No ascites. Retroperitoneum: Surgical clips throughout the right retroperitoneum from prior lymph node dissection. No mass. Vasculature: No abdominal aortic or iliac artery aneurysm. Pelvis: No mass or ascites. Severely distended urinary bladder. Bones/Soft Tissues: Stable 1.2 cm L3 spinous process lytic lesion consistent with biopsy-proven tophaceous gout. No suspicious osseous lesions. Stable osseous degenerative changes. Lower thorax: A chest CT performed will be reported separately. Localizer images: No additional findings. IMPRESSION IMPRESSION: Stable to slightly decreased partly calcified retroperitoneal lymphadenopathy. Borderline sized morphologically normal bilateral groin nodes. Advise continued biochemical correlation and surveillance imaging Severely distended urinary bladder with bilateral pelvocaliectasis and ureterectasis more pronounced from prior likely secondary to reflux Operations Staff Specialist Security: [facility] Transcribe Date/Time: Feb 03 2025 2:15P Dictated by : SHAILA MCINTYRE MD This examination was interpreted and the report reviewed and electronically signed by: KIRAN MCDANIEL MD on Feb 03 2025 4:53PM EST [facility] CT CHEST WO IVCONon 02-04-20 CT [facility]on 02-03 IMPRESSION: No CT evidence of acute abnormality. Unremarkable chest with no findings of metastatic disease in the thorax. Operations Staff Specialist Security: [facility] Transcribe Date/Time: Feb 03 2025 1:56P Dictated by : SUMMER STEARNS MD This examination was interpreted and the report reviewed and electronically signed by: SUMMER STEARNS MD on Feb 03 2025 2:01PM [facility] DIVISION OF RADIOLOGY * * *Final Report* * * DATE OF EXAM: Feb 03 2025 1:48PM [facility] 0541 - CT CHEST WO IVCON / PROCEDURE REASON: Malignant neoplasm of testicle, unspecified laterality, unspecified whether desc * * * * Physician Interpretation * * * * EXAMINATION: CHEST CT WITHOUT CONTRAST CLINICAL HISTORY: Testicular carcinoma Technique: Spiral CT acquisition of the chest from the thoracic inlet to the upper abdomen without contrast. MQ: CTCWO_6 CT Radiation dose: Integrated Dose-length product (DLP) for this visit = 2146 mGy*cm CT Dose Reduction Employed: Automated exposure control (AEC) Comparison: 07/02/2024, 09/17/2023, 07/08/2023 RESULT: Limitations: None. Lines, tubes, and devices: None. Lung parenchyma and airways: No consolidation. No suspicious pulmonary nodule. The central airways are patent. Pleural space: No pleural effusion. No pleural thickening. Lower neck, lymph nodes, and mediastinum: The imaged thyroid gland is normal. No lymphadenopathy in the supraclavicular, axillary, mediastinal, or hilar regions. Heart, pericardium, and thoracic vessels: The thoracic aorta and main pulmonary artery are normal in caliber. The cardiac chambers are normal in size. No coronary artery atherosclerotic calcifications are noted, although the study is not optimized for coronary assessment. No pericardial effusion or thickening. Bones and soft tissues: No destructive bone lesion. Chest wall is unremarkable. Upper abdomen: Dictated surgery. Localizer images: No additional findings. DIVISION OF RADIOLOGY Provider, [facility] - 02/03/2025 * * *Final Report* * * DATE OF EXAM: Feb 03 2025 1:48PM [facility] 0541 - CT CHEST WO IVCON / PROCEDURE REASON: Malignant neoplasm of testicle, unspecified laterality, unspecified whether desc * * * * Physician Interpretation * * * * EXAMINATION: CHEST CT WITHOUT CONTRAST CLINICAL HISTORY: Testicular carcinoma Technique: Spiral CT acquisition of the chest from the thoracic inlet to the upper abdomen without contrast. MQ: CTCWO_6 CT Radiation dose: Integrated Dose-length product (DLP) for this visit = 2146 mGy*cm CT Dose Reduction Employed: Automated exposure control (AEC) Comparison: 07/02/2024, 09/17/2023, 07/08/2023 RESULT: Limitations: None. Lines, tubes, and devices: None. Lung parenchyma and airways: No consolidation. No suspicious pulmonary nodule. The central airways are patent. Pleural space: No pleural effusion. No pleural thickening. Lower neck, lymph nodes, and mediastinum: The imaged thyroid gland is normal. No lymphadenopathy in the supraclavicular, axillary, mediastinal, or hilar regions. Heart, pericardium, and thoracic vessels: The thoracic aorta and main pulmonary artery are normal in caliber. The cardiac chambers are normal in size. No coronary artery atherosclerotic calcifications are noted, although the study is not optimized for coronary assessment. No pericardial effusion or thickening. Bones and soft tissues: No destructive bone lesion. Chest wall is unremarkable. Upper abdomen: Dictated surgery. Localizer images: No additional findings. IMPRESSION IMPRESSION: No CT evidence of acute abnormality. Unremarkable chest with no findings of metastatic disease in the thorax. Operations Staff Specialist Security: [facility] Transcribe Date/Time: Feb 03 2025 1:56P Dictated by : SUMMER STEARNS MD This examination was interpreted and the report reviewed and electronically signed by: SUMMER STEARNS MD on Feb 03 2025 2:01PM EST [facility] CT Chest WO contrastOrdered By: [facility] Provider on 02-03-2025 [facility] Laboratory - Hematology and Cell countson 02-03-2025 Hemoglobin Ql (U) Trace-intact Abnormal Negative [facility] Laboratory - Urinalysison Protein Ql (U) >=300 Abnormal Negative mg/dL [facility] MR/BMS.BVSon 02-03-2025 MR/BMS.BVS [facility] Vascular Surgery [address] [place] [address] OFFICE VISIT Date of Service: 02/04/25 MR#: [id number] Acct: [id number] Name: DANN PALACIOS CALEB Rep #: [id number] : 1990 Provider: JOSE ALEJANDRO Painting Age/Sex: 34/M [place] [facility] Status: Signed Intake Vital Signs 11/11/24 11:24 02/04/25 10:44 Height 6 ft Weight: 297 lb Blood Pressure Location Lt brachial Position Sitting Respiration 20 H Pulse 90 Pulse Source Monitor Temp 97.7 F L Temp Source Temporal Pulse Oximetry (%) 98 Oxygen Delivery Method room air Intake Visit Reasons: Edema and swelling Chief Complaint: Back pain Is patient in pain?: No Allergies cephalexin (From Keflex) Allergy (Verified 02/04/25 10:45) Rash Medications ???Medication ???Instructions ???Recorded ???Confirmed ???Type bupropion HCl 75 mg tablet 75 mg PO BID 04/28/17 02/04/25 His tory cholecalciferol (vitamin D3) 50 2,000 unit PO DAILY 04/28/1702/04 History mcg (2,000 unit) capsule (Vitamin D3) fluvoxamine 50 mg tablet 100 mg PO BID 04/28/17 02/04/25 Hi story montelukast 10 mg tablet 10 mg PO QHS 04/28/17 02/04/25 His tory (Singulair) oxybutynin chloride 5 mg tablet 5 mg PO BID 04/28/17 02/04/25 Hist ory risperidone 1 mg tablet 1 mg PO 4X/DAY 04/28/17 02/04/25 H istory clonazepam 0.5 mg tablet 1 tab PO BID 06/04/22 02/04/25 His tory lamotrigine 100 mg tablet 1 tab PO BID 06/04/22 02/04/25 His tory lamotrigine 25 mg tablet 1 tab PO DAILY 06/04/22 02/04/25 H istory quetiapine 200 mg tablet 1 tab PO BID 06/04/22 02/04/25 His tory dapagliflozin propanediol 10 mg 10 mg PO DAILY 05/15/23 02/04/25 H istory tablet (Farxiga) dulaglutide 0.75 mg/0.5 mL 0.75 mg subcut QWEEK 05/15/2301/16 History subcutaneous pen injector (Trulicity) fluticasone propionate 50 2 spray intranasal DAILY 02/16/24 02/04/25 History mcg/actuation nasal spray,suspension acetaminophen 325 mg tablet 650 mg PO Q4H PRN 11/11/24 5 History amlodipine 10 mg tablet 10 mg PO DAILY 11/11/24 02/04/25 H istory ondansetron 4 mg disintegrating 4 mg PO Q8H PRN nausea and vomitin g 11/11/24 02/04/25 History tablet potassium chloride 20 mEq/15 mL 20 meq PO DAILY 11/11/24 02/04/25 History oral liquid spironolactone 25 mg tablet 25 mg PO DAILY 11/11/24 02/04/25 H istory furosemide 20 mg tablet 40 mg PO DAILY PRN edema 02/04/25 02/04/25 History Have you fallen in the past year?: No PFSH Medical History Lives in independent penitentiary Wears glasses OCD (obsessive compulsive disorder) Anxiety Diabetes Bladder disease Back pain Dietary restriction Non-smoker CPAP (continuous positive airway pressure) dependence Shortness of breath on exertion Hx of testicular biopsy 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 Proteinuria Obstructive uropathy Hyperparathyroidism Prediabetes Sebaceous cyst Autism Severe sepsis Acute on chronic renal failure Cellulitis of right lower extremity Morbid obesity with BMI of 40.0-44.9, adult mrdd Surgical History History of nasal surgery History of excision of mass Social History adopted: Yes housing: house Smoking Status: Never smoker HPI HPI HPI: DANN PALACIOS, is a 34 M who presents to the office today for evaluation of bilateral lower extremity edema as referred from his PCP at [facility]. He'd also had associated weeping/cellulitis, following with podiatry as well; he was on a course of Augmentin and this seemed to resolve the cellulitis component. At present, the swelling is persistent but there are no open or weeping areas and he notes the redness is much improved. He had a venous doppler which was negative for DVT in 11/2024 but did not assess for reflux. His history is significant for testicular cancer with metastasis to lymph nodes s/p L orchiectomy and lymph node dissection and chemotherapy. He reports he'd had cellulitis once before his cancer treatments but that the swelling as gotten worse since then and has had several episodes of cellulitis since then as well. He does not currently wear compression, reports they did not have stockings in his size. He denies any history of VTE. His history is otherwise significant for mental disability, autism, morbid obesity, prediabetes, hypertension, and chronic renal failure stage III since his teens. He was accompanied to his appointment today by a detention sergeant from his penitentiary. ROS General General: Yes fatigue; No weight change, appetite, colon cancer, breast cancer or weakness EZ (more content not included)... Normal [facility] No Panel Informationon 02-03 BILIRUBIN UA (POCT) Negative Negative [facility] CLARITY UA (POCT) [facility] COLOR UA (POCT) Yellow [facility] GLUCOSE UA (POCT) 250 mg/dL Abnormal Negative [facility] Interpretation and review of laboratory results Abnormal [facility] KETONE UA (POCT) Negative Negative mg/dL [facility] LEUKOCYTES UA (POCT) Negative [facility] NITRITE UA (POCT) Negative Negative [facility] PH UA (POCT) 5.5 4.5 - 8.0 [facility] SPECIFIC GRAVITY UA (POCT) 1.015 1.005 - 1.030 [facility] UROBILINOGEN UA (POCT) 0.2 Alvina l E.U./dL [facility] Location:[facility], [address] [place] [address], [address] [place] [address] POINT OF CARE [facility] Radiology Study observation (narrative) [facility] BUN/creatinine ratioOrdered By: Floyd Guardado on 01-14-2025 Urea nitrogen/Creatinine [Mass ratio] 13.7 mg/mg - [facility] Basic Metabolic Profile (BMP )on 01-14-2025 Anion gap [Moles/Vol] 19 mmol/L High 5- [facility] Comment on above: Order Comment: Order Date: 12/02/24 Order Info: [id number] - [id number] Performed By: #### L 500.4100, L100.0100, L501.9985, L502.0250, L500.4050, L506.1000 #### [facility] [address] [place], [address] BUN/CRE 13.7 RATIO Normal 10-20 [facility] Comment on above: Order Comment: Order Date: 12/02/24 Order Info: [id number] - VITD25 Performed By: #### L 500.4100, L100.0100, L501.9985, L502.0250, L500.4050, L506.1000 #### [facility] [address] [place], [address] Calcium [Mass/Vol] 10.0 mg/dL Normal 7.6-11.0 [facility] Comment on above: Order Comment: Order Date: 12/02/24 Order Info: [id number] - VITD25 Performed By: #### L 500.4100, L100.0100, L501.9985, L502.0250, L500.4050, L506.1000 #### [facility] [address] [place], [address] Chloride [Moles/Vol] 100 mmol/L Normal 96-108 [facility] Comment on above: Order Comment: Order Date: 12/02/24 Order Info: [id number] - VITD25 Performed By: #### L 500.4100, L100.0100, L501.9985, L502.0250, L500.4050, L506.1000 #### [facility] [address] [place], [address] CO2 [Moles/Vol] 18.1 mmol/L Low 22.0-29.0 [facility] Comment on above: Order Comment: Order Date: 12/02/24 Order Info: [id number] - VITD25 Performed By: #### L 500.4100, L100.0100, L501.9985, L502.0250, L500.4050, L506.1000 #### [facility] [address] [place], [address] Creatinine [Mass/Vol] 2.64 mg/dL High 0.70-1.20 [facility] Comment on above: Order Comment: Order Date: 12/02/24 Order Info: [id number] - VITD25 Performed By: #### L 500.4100, L100.0100, L501.9985, L502.0250, L500.4050, L506.1000 #### [facility] [address] [place], [address] GFR/1.73 sq M.predicted among non-blacks MDRD (S/P/Bld) [Vol rate/Area] 32 mL/min/{1.73_m2} Low >60 [facility] Comment on above: Order Comment: Order Date: 12/02/24 Order Info: [id number] - VITD25 Result Comment: mL/m in/1.73m2 CKD-EPI Creatinine Equation (2020) Performed By: #### L 500.4100, L100.0100, L501.9985, L502.0250, L500.4050, L506.1000 #### [facility] [address] [place], [address] Glucose [Mass/Vol] 109 mg/dL High 70-99 [facility] Comment on above: Order Comment: Order Date: 12/02/24 Order Info: [id number] - VITD25 Performed By: #### L 500.4100, L100.0100, L501.9985, L502.0250, L500.4050, L506.1000 #### [facility] [address] [place], [address] Potassium [Moles/Vol] 3.6 mmol/L Normal 3.3-5.1 [facility] Comment on above: Order Comment: Order Date: 12/02/24 Order Info: [id number] - VITD25 Performed By: #### L 500.4100, L100.0100, L501.9985, L502.0250, L500.4050, L506.1000 #### [facility] [address] [facility] [place], [address] Sodium [Moles/Vol] 137 mmol/L Normal 133-145 [facility] Comment on above: Order Comment: Order Date: 12/02/24 Order Info: [id number] - VITD25 Performed By: #### L 500.4100, L100.0100, L501.9985, L502.0250, L500.4050, L506.1000 #### [facility] [address] [place], [address] Urea nitrogen [Mass/Vol] 36 mg/dL High 4-19 [facility] Comment on above: Order Comment: Order Date: 12/02/24 Order Info: [id number] - VITD25 Performed By: #### L 500.4100, L100.0100, L501.9985, L502.0250, L500.4050, L506.1000 #### [facility] [address] [facility] [place], [address] Carbon dioxide measurementOr dered By: Floyd Guardado on 01-14-2025 CO2 [Moles/Vol] 18.1 mmol/L Low 22.0-29.0 [facility] Chloride measurementOrdered By: Floyd Guardado on 01-14-2025 Chloride [Moles/Vol] 100 mmol/L 96-108 [facility] GFR/1.73 sq M.predicted macho g non-blacks MDRD (S/P/Bld) [Vol rate/Area]Ordered By: Floyd Guardado on 01-14-2025 Estimated GFR (MDRD) Non-Af Amer 32 Low >60 [facility] Comment on above: mL/min/1.73m2 CKD-EP I Creatinine Equation (2020) Serum creatinine measurement (mass/volume)Ordered By: Floyd Guardado on 01-14-2025 Creatinine [Mass/Vol] 2.64 mg/dL High 0.70-1.20 [facility] Serum glucose measurement (m ass/volume)Ordered By: Floyd Guardado on 01-14-2025 Glucose [Mass/Vol] 109 mg/dL High 70-99 [facility] Serum or plasma anion gap de termination (moles/volume)Ordered By: Floyd Guardado on 01-14-2025 Anion gap [Moles/Vol] 19 mmol/L High 5-15 [facility] Serum or plasma calcium carl urement (mass/volume)Ordered By: Floyd Guardado on 01-14-2025 Calcium [Mass/Vol] 10.0 mg/dL 7.6-11.0 [facility] Serum or plasma potassium me asurementOrdered By: Floyd Guardado on 01-14-2025 Potassium [Moles/Vol] 3.6 mmol/L 3.3-5.1 [facility] Serum or plasma sodium measu rement (moles/volume)Ordered By: Floyd Guardado on 01-14-2025 Sodium [Moles/Vol] 137 mmol/L 133-145 [facility] Serum or plasma urea nitroge n measurement (mass/volume)Ordered By: Floyd Guardado on 01-14-2025 Urea nitrogen [Mass/Vol] 36 mg/dL High 4-19 [facility] Wound Cultureon 01-09-2025 WC Staphylococcus aureu s Amount Growth 2+ Staphylococcus aureus: REACTION cefOXitin Susc Islt Doxycycline Islt DAMARIS 8 I Clindamycin Islt DAMARIS R Clindamycin.induced Susc Islt POS Erythromycin Islt DAMARIS >=8 R Gentamicin Islt DAMARIS <=0.5 S Linezolid Islt DAMARIS 2 S Moxifloxacin Islt DAMARIS <=0.25 S Oxacillin Susc Islt 0.5 S Tetracycline Islt DAMARIS >=16 R TMP SMX Islt DAMARIS <=10 S Vancomycin Islt DAMARIS <=0.5 S Normal [facility] Comment on above: Performed By: #### L 500.4100, L100.0100, L501.9985, L502.0250, L500.4050, L506.1000 #### [facility] [address] [place], [address] Gram Stainon 01-07-2025 GS Gram Stain 4+ Red Blood Cells No organisms seen No Epithelial cells Normal [facility] Comment on above: Performed By: #### L 500.4100, L100.0100, L501.9985, L502.0250, L500.4050, L506.1000 #### [facility] [address] [place], [address] Gram stainOrdered By: Eleno Carballo on 01-06-2025 Microscopic observation Gram stain Nom (Unsp spec) [facility] Routine wound cultureOrdered By: Caleb Carballo on 01-06-2025 Wound Culture Staphylococcus aureus Abnormal [facility] Basic Metabolic Profile (BMP )on 12-20-2024 BUN/CRE 15.9 RATIO Normal - [facility] Comment on above: Performed By: #### L 500.4100, L100.0100, L501.9985, L502.0250, L500.4050, L506.1000 #### [facility] [address] [place], [address] CA,Total 9.1 mg/dL Normal 8.5-10.1 [facility] Comment on above: Performed By: #### L 500.4100, L100.0100, L501.9985, L502.0250, L500.4050, L506.1000 #### [facility] [address] [place], [address] Chloride [Moles/Vol] 106 mmol/L Normal 98-107 [facility] Comment on above: Performed By: #### L 500.4100, L100.0100, L501.9985, L502.0250, L500.4050, L506.1000 #### [facility] [address] [place], [address] CO2 [Moles/Vol] 22.0 mmol/L Normal 21.0-32.0 [facility] Comment on above: Performed By: #### L 500.4100, L100.0100, L501.9985, L502.0250, L500.4050, L506.1000 #### [facility] [address] [place], [address] Creatinine [Mass/Vol] 3.02 mg/dL High 0.70-1.30 [facility] [place] Comment on above: Result Comment: The validity of the calculated GFR GFRAA in patients over 70 years has not been determined. Clinical correlation is essential. Performed By: #### L 500.4100, L100.0100, L501.9985, L502.0250, L500.4050, L506.1000 #### [facility] [address] [place], [address] EST GFR - AA 31 mL/min Low >60 [facility] Comment on above: Result Comment: Afri can Iraqi GFR Calc Performed By: #### L 500.4100, L100.0100, L501.9985, L502.0250, L500.4050, L506.1000 #### [facility] [address] [place], [address] GAP 11 Normal 5-15 [facility] Comment on above: Performed By: #### L 500.4100, L100.0100, L501.9985, L502.0250, L500.4050, L506.1000 #### [facility] [address] [place], [address] GFR/1.73 sq M.predicted among non-blacks MDRD (S/P/Bld) [Vol rate/Area] 25 mL/min/{1.73_m2} Low >60 [facility] Comment on above: Result Comment: Non- GFR Calc Performed By: #### L 500.4100, L100.0100, L501.9985, L502.0250, L500.4050, L506.1000 #### [facility] [address] [place], [address] Glucose [Mass/Vol] 143 mg/dL High 74-106 [facility] Comment on above: Result Comment: Fast ing Glucose result greater than or equal to 126 mg/dL suggests DIABETES MELLITUS per A.D.A. criteria. Performed By: #### L 500.4100, L100.0100, L501.9985, L502.0250, L500.4050, L506.1000 #### [facility] [address] [place], [address] Potassium [Moles/Vol] 3.4 mmol/L Low 3.5-5.1 [facility] [place] Comment on above: Performed By: #### L 500.4100, L100.0100, L501.9985, L502.0250, L500.4050, L506.1000 #### [facility] [address] [place], [address] Sodium [Moles/Vol] 139 mmol/L Normal 136-145 [facility] Comment on above: Performed By: #### L 500.4100, L100.0100, L501.9985, L502.0250, L500.4050, L506.1000 #### [facility] [address] [place], [address] Urea nitrogen [Mass/Vol] 48 mg/dL High 7-18 [facility] Comment on above: Performed By: #### L 500.4100, L100.0100, L501.9985, L502.0250, L500.4050, L506.1000 #### [facility] [address] [place], [address] Blood urea nitrogen (BUN)/cr eatinine ratioOrdered By: Kristi Nguyễn on 12-20-2024 Urea nitrogen/Creatinine [Mass ratio] 15.9 mg/mg 10-20 [facility] Carbon dioxide measurementOr dered By: Kristi Nguyễn on 12-20-2024 CO2 [Moles/Vol] 22.0 mmol/L 21.0-32.0 [facility] Chloride measurementOrdered By: Kristi Nguyễn on 12-20-2024 Chloride [Moles/Vol] 106 mmol/L 98-107 [facility] Estimated glomerular filtrat ion rate (GFR) AmericanOrdered By: Kristi Nguyễn on 12-20-2024 Estimated GFR (MDRD) Amer 31 mL/min Low >60 [facility] Comment on above: GFR Calc Glomerular filtration rate ( GFR) estimationOrdered By: Kristi Nguyễn on 12-20-2024 Estimated GFR (MDRD) Non-Af Amer 25 mL/min Low >60 [facility] Comment on above: Non- GFR Calc Glucose measurementOrdered B y: Kristi Nguyễn on 12-20-2024 Glucose [Mass/Vol] 143 mg/dL High 74-106 [facility] Comment on above: Fasting Glucose resu lt greater than or equal to 126 mg/dL suggests DIABETES MELLITUS per A.D.A. criteria. Potassium measurementOrdered By: Kristi Nguyễn on 12-20-2024 Potassium [Moles/Vol] 3.4 mmol/L Low 3.5-5.1 [facility] [place] Serum anion gap measurementO rdered By: Kristi Nguyễn on 12-20-2024 Anion gap [Moles/Vol] 11 mmol/L 5-15 [facility] [place] Serum or plasma calcium carl urement (mass/volume)Ordered By: Kristi Nguyễn on 12-20-2024 Calcium [Mass/Vol] 9.1 mg/dL 8.5-10.1 [facility] Serum or plasma creatinine m easurement (mass/volume)Ordered By: Kristi Nguyễn on 12-20-2024 Creatinine [Mass/Vol] 3.02 mg/dL High 0.70-1.30 [facility] [place] Comment on above: The validity of the calculated GFR & GFRAA in patients over 70 years has not been determined. Clinical correlation is essential. Serum or plasma urea nitroge n measurement (mass/volume)Ordered By: Kristi Nguyễn on 12-20-2024 Urea nitrogen [Mass/Vol] 48 mg/dL High 7-18 [facility] Sodium levelOrdered By: Eliza Nguyễn on 12-20-2024 Sodium [Moles/Vol] 139 mmol/L 136-145 [facility] Urine Cultureon 12-05-2024 [facility] PLEASE ADD CULTURE T O URINE SAMPLE COLLECTED 12/02/24 Staphylococcus epidermidis [place] Count >100,000 Staphylococcus epidermidis: REACTION cefOXitin Susc Islt Doxycycline Islt DAMARIS <=0.5 S Clindamycin.induced Susc Islt NEG Gentamicin Islt DAMARIS <=0.5 S Linezolid Islt DAMARIS 2 S Nitrofurantoin Islt DAMARIS <=16 S Oxacillin Susc Islt <=0.25 S Tetracycline Islt DAMARIS <=1 S TMP SMX Islt DAMARIS <=10 S Vancomycin Islt DAMARIS 1 S Normal [facility] Comment on above: Performed By: #### L 500.4100, L100.0100, L501.9985, L502.0250, L500.4050, L506.1000 #### [facility] [address] [place], [address] [id number] DOrdered By: Kay Guardado on 12-02-2024 Vitamin D 25-Hydroxy 36.1 ng/mL [facility] Comment on above: Vitamin D 25(OH) Sta tus Range Deficiency <20 ng/mL (50nmol/L) Insufficiency 20 - 30 ng/mL (50 - 75 nmol/L) Sufficiency 30 - 100 ng/mL (75 - 250 nmol/L) Toxicity >100 ng/mL (>250 nmol/L) Absolute neutrophil countOrd ered By: Floyd Guardado on 12-02-2024 Neutrophils (Bld) [#/Vol] 5.4 10*3/uL 2.0-7.7 [facility] Albumin to globulin ratioOrd ered By: Floyd Guardado on 12-02-2024 Albumin/Globulin [Mass ratio] 0.8 {ratio} Low 0.9-2.4 [facility] Basophil percentageOrdered B y: Floyd Guardado on 12-02-2024 Basophils/100 WBC (Bld) 1.1 % High 0-1 [facility] Bilirubin Test strip Ql (U)O rdered By: Floyd Guardado on 12-02-2024 Bilirubin Ql (U) Negative Negative [facility] Bilirubin, totalOrdered By: Floyd Guardado on 12-02-2024 Bilirubin [Mass/Vol] 0.30 mg/dL 0.20-1.00 [facility] Comment on above: For patients on eltr ombopag therapy, use of Dimension Oolitic TBIL is not recommended. Blood urea nitrogen (BUN)/cr eatinine ratioOrdered By: Floyd Guardado on 12-02-2024 Urea nitrogen/Creatinine [Mass ratio] 12.9 mg/mg 10-20 [facility] CBC W/Diff, Automatedon 11-17 Absolute Lymph 0.75 X10 3/uL Low 0.83-4.51 [facility] Comment on above: Order Comment: Order Date: 12/02/24 Order Info: [id number] - CBCD Performed By: #### L 500.4100, L100.0100, L501.9985, L502.0250, L500.4050, L506.1000 #### [facility] [address] [place], [address] Absolute Neut 5.4 X10 3/uL Normal 2.0-7.7 [facility] Comment on above: Order Comment: Order Date: 12/02/24 Order Info: [id number] - CBCD Performed By: #### L 500.4100, L100.0100, L501.9985, L502.0250, L500.4050, L506.1000 #### [facility] [address] [place], [address] Basophils/100 WBC (Bld) 1.1 % High 0-1 [facility] Comment on above: Order Comment: Order Date: 12/02/24 Order Info: [id number] - CBCD Performed By: #### L 500.4100, L100.0100, L501.9985, L502.0250, L500.4050, L506.1000 #### [facility] [address] [place], [address] Eosinophils/100 WBC (Bld) 2.0 % Normal 0-5 [facility] Comment on above: Order Comment: Order Date: 12/02/24 Order Info: [id number] - CBCD Performed By: #### L 500.4100, L100.0100, L501.9985, L502.0250, L500.4050, L506.1000 #### [facility] [address] [place], [address] Erythrocyte distribution width (RBC) [Ratio] 15.1 % High 11.6-14.6 [facility] Comment on above: Order Comment: Order Date: 12/02/24 Order Info: [id number] - CBCD Performed By: #### L 500.4100, L100.0100, L501.9985, L502.0250, L500.4050, L506.1000 #### [facility] [address] [place], [address] Hematocrit (Bld) [Volume fraction] 47.5 % Normal 40-54 [facility] Comment on above: Order Comment: Order Date: 12/02/24 Order Info: [id number] - CBCD Performed By: #### L 500.4100, L100.0100, L501.9985, L502.0250, L500.4050, L506.1000 #### [facility] [address], [address] Hemoglobin (Bld) [Mass/Vol] 15.5 g/dL Normal 13.0-16.5 [facility] Comment on above: Order Comment: Order Date: 12/02/24 Order Info: [id number] - CBCD Performed By: #### L 500.4100, L100.0100, L501.9985, L502.0250, L500.4050, L506.1000 #### [facility] [address] [place], [address] IG% 0.400 Normal 0.0-0.9 [facility] Comment on above: Order Comment: Order Date: 12/02/24 Order Info: [id number] - CBCD Result Comment: IG% - Immature Granulocytes (promyelocytes, myelocytes and metamyelocytes) > 1% indicates that a LEFT SHIFT is Present. Performed By: #### L 500.4100, L100.0100, L501.9985, L502.0250, L500.4050, L506.1000 #### [facility] [address] [place], [address] Lymphocytes/100 WBC (Bld) 10.5 % Low 19-41 [facility] Comment on above: Order Comment: Order Date: 12/02/24 Order Info: [id number] - CBCD Performed By: #### L 500.4100, L100.0100, L501.9985, L502.0250, L500.4050, L506.1000 #### [facility] [address] [place], [address] MCH (RBC) [Entitic mass] 28.8 pg Normal 27.0-32.0 [facility] Comment on above: Order Comment: Order Date: 12/02/24 Order Info: [id number] - CBCD Performed By: #### L 500.4100, L100.0100, L501.9985, L502.0250, L500.4050, L506.1000 #### [facility] [address] [place], [address] MCHC (RBC) [Mass/Vol] 32.6 g/dL Normal 32-36 [facility] [place] Comment on above: Order Comment: Order Date: 12/02/24 Order Info: [id number] - CBCD Performed By: #### L 500.4100, L100.0100, L501.9985, L502.0250, L500.4050, L506.1000 #### [facility] [address] [place], [address] MCV (RBC) [Entitic vol] 88.3 fL Normal 80-94 [facility] Comment on above: Order Comment: Order Date: 12/02/24 Order Info: [id number] - CBCD Performed By: #### L 500.4100, L100.0100, L501.9985, L502.0250, L500.4050, L506.1000 #### [facility] [address] [place], [address] Monocytes/100 WBC (Bld) 10.1 % High 0-10 [facility] Comment on above: Order Comment: Order Date: 12/02/24 Order Info: [id number] - CBCD Performed By: #### L 500.4100, L100.0100, L501.9985, L502.0250, L500.4050, L506.1000 #### [facility] [address] [place], [address] Neutrophils/100 WBC (Bld) 75.9 % High 47-70 [facility] Comment on above: Order Comment: Order Date: 12/02/24 Order Info: [id number] - CBCD Performed By: #### L 500.4100, L100.0100, L501.9985, L502.0250, L500.4050, L506.1000 #### [facility] [address] [place], [address] Nucleated RBC (Bld) [#/Vol] 0 10*3/uL Normal 0-5 [facility] Comment on above: Order Comment: Order Date: 12/02/24 Order Info: [id number] - CBCD Performed By: #### L 500.4100, L100.0100, L501.9985, L502.0250, L500.4050, L506.1000 #### [facility] [address] [place], [address] Platelet mean volume (Bld) [Entitic vol] 9.1 fL Normal 6.2-12.0 [facility] Comment on above: Order Comment: Order Date: 12/02/24 Order Info: [id number] - CBCD Performed By: #### L 500.4100, L100.0100, L501.9985, L502.0250, L500.4050, L506.1000 #### [facility] [address] [place], [address] Platelets (Bld) [#/Vol] 229 10*3/uL Normal 150-450 [facility] Comment on above: Order Comment: Order Date: 12/02/24 Order Info: [id number] - CBCD Performed By: #### L 500.4100, L100.0100, L501.9985, L502.0250, L500.4050, L506.1000 #### [facility] [address] [place], [address] RBC (Bld) [#/Vol] 5.38 10*6/uL Normal 4.6-6.2 [facility] Comment on above: Order Comment: Order Date: 12/02/24 Order Info: [id number] - CBCD Performed By: #### L 500.4100, L100.0100, L501.9985, L502.0250, L500.4050, L506.1000 #### [facility] [address] [place], [address] RDW SD 48.0 fl High 35.1-43.9 [facility] Comment on above: Order Comment: Order Date: 12/02/24 Order Info: [id number] - CBCD Performed By: #### L 500.4100, L100.0100, L501.9985, L502.0250, L500.4050, L506.1000 #### [facility] [address] [place], [address] WBC (Bld) [#/Vol] 7.1 10*3/uL Normal 4.4-11.0 [facility] Comment on above: Order Comment: Order Date: 12/02/24 Order Info: [id number] - CBCD Performed By: #### L 500.4100, L100.0100, L501.9985, L502.0250, L500.4050, L506.1000 #### [facility] [address] [place], [address] Carbon dioxide measurementOr dered By: Floyd Guardado on 12-02-2024 CO2 [Moles/Vol] 24.0 mmol/L 21.0-32.0 [facility] Chloride measurementOrdered By: Floyd Guardado on 12-02-2024 Chloride [Moles/Vol] 105 mmol/L 98-107 [facility] Comprehensive Metabolic Prof ilon 12-02-2024 Albumin [Mass/Vol] 3.6 g/dL Normal 3.2-5.0 [facility] Comment on above: Order Comment: Order Date: 12/02/24 Order Info: [id number] - CMP Order Info: [id number] - LIPID Performed By: #### L 500.4100, L100.0100, L501.9985, L502.0250, L500.4050, L506.1000 #### [facility] [address] [place], [address] Albumin/Globulin [Mass ratio] 0.8 {ratio} Low 0.9-2.4 [facility] Comment on above: Order Comment: Order Date: 12/02/24 Order Info: [id number] - CMP Order Info: [id number] - LIPID Performed By: #### L 500.4100, L100.0100, L501.9985, L502.0250, L500.4050, L506.1000 #### [facility] [address] [place], [address] ALK P 188 U/L High 45-117 [facility] Comment on above: Order Comment: Order Date: 12/02/24 Order Info: [id number] - CMP Order Info: [id number] - LIPID Performed By: #### L 500.4100, L100.0100, L501.9985, L502.0250, L500.4050, L506.1000 #### [facility] [address] [place], [address] ALT [Catalytic activity/Vol] 35 U/L Normal 16-61 [facility] Comment on above: Order Comment: Order Date: 12/02/24 Order Info: [id number] - CMP Order Info: [id number] - LIPID Performed By: #### L 500.4100, L100.0100, L501.9985, L502.0250, L500.4050, L506.1000 #### [facility] [address] [place], [address] AST [Catalytic activity/Vol] 28 U/L Normal 15-37 [facility] Comment on above: Order Comment: Order Date: 12/02/24 Order Info: [id number] - CMP Order Info: [id number] - LIPID Performed By: #### L 500.4100, L100.0100, L501.9985, L502.0250, L500.4050, L506.1000 #### [facility] [address] [place], [address] Bilirubin [Mass/Vol] 0.30 mg/dL Normal 0.20-1.00 [facility] Comment on above: Order Comment: Order Date: 12/02/24 Order Info: [id number] - CMP Order Info: [id number] - LIPID Result Comment: For patients on eltrombopag therapy, use of Dimension Oolitic TBIL is not recommended. Performed By: #### L 500.4100, L100.0100, L501.9985, L502.0250, L500.4050, L506.1000 #### [facility] [address] [place], [address] BUN/CRE 12.9 RATIO Normal 10-20 [facility] Comment on above: Order Comment: Order Date: 12/02/24 Order Info: [id number] - CMP Order Info: [id number] - LIPID Performed By: #### L 500.4100, L100.0100, L501.9985, L502.0250, L500.4050, L506.1000 #### [facility] [address] [place], [address] CA,Total 10.0 mg/dL Normal 8.5-10.1 [facility] Comment on above: Order Comment: Order Date: 12/02/24 Order Info: [id number] - CMP Order Info: [id number] - LIPID Performed By: #### L 500.4100, L100.0100, L501.9985, L502.0250, L500.4050, L506.1000 #### [facility] [address] [place], [address] Chloride [Moles/Vol] 105 mmol/L Normal 98-107 [facility] Comment on above: Order Comment: Order Date: 12/02/24 Order Info: [id number] - CMP Order Info: [id number] - LIPID Performed By: #### L 500.4100, L100.0100, L501.9985, L502.0250, L500.4050, L506.1000 #### [facility] [address] [place], [address] CO2 [Moles/Vol] 24.0 mmol/L Normal 21.0-32.0 [facility] Comment on above: Order Comment: Order Date: 12/02/24 Order Info: [id number] - CMP Order Info: [id number] - LIPID Performed By: #### L 500.4100, L100.0100, L501.9985, L502.0250, L500.4050, L506.1000 #### [facility] [address] [place], [address] Creatinine [Mass/Vol] 2.87 mg/dL High 0.70-1.30 [facility] [place] Comment on above: Order Comment: Order Date: 12/02/24 Order Info: [id number] - CMP Order Info: [id number] - LIPID Result Comment: The validity of the calculated GFR GFRAA in patients over 70 years has not been determined. Clinical correlation is essential. Performed By: #### L 500.4100, L100.0100, L501.9985, L502.0250, L500.4050, L506.1000 #### [facility] [address] [place], [address] EST GFR - AA 33 mL/min Low >60 [facility] Comment on above: Order Comment: Order Date: 12/02/24 Order Info: [id number] - CMP Order Info: [id number] - LIPID Result Comment: Afri can Iraqi GFR Calc Performed By: #### L 500.4100, L100.0100, L501.9985, L502.0250, L500.4050, L506.1000 #### [facility] [address] [place], [address] GAP 10 Normal 5-15 [facility] Comment on above: Order Comment: Order Date: 12/02/24 Order Info: [id number] - CMP Order Info: [id number] - LIPID Performed By: #### L 500.4100, L100.0100, L501.9985, L502.0250, L500.4050, L506.1000 #### [facility] [address] [place], [address] GFR/1.73 sq M.predicted among non-blacks MDRD (S/P/Bld) [Vol rate/Area] 27 mL/min/{1.73_m2} Low >60 [facility] Comment on above: Order Comment: Order Date: 12/02/24 Order Info: [id number] - CMP Order Info: [id number] - LIPID Result Comment: Non- GFR Calc Performed By: #### L 500.4100, L100.0100, L501.9985, L502.0250, L500.4050, L506.1000 #### [facility] [address] [place], [address] Globulin (S) [Mass/Vol] 4.3 g/dL High 2.2-4.2 [facility] Comment on above: Order Comment: Order Date: 12/02/24 Order Info: [id number] - CMP Order Info: [id number] - LIPID Performed By: #### L 500.4100, L100.0100, L501.9985, L502.0250, L500.4050, L506.1000 #### [facility] [address] [place], [address] Glucose [Mass/Vol] 106 mg/dL Normal 74-106 [facility] Comment on above: Order Comment: Order Date: 12/02/24 Order Info: [id number] - CMP Order Info: [id number] - LIPID Result Comment: Fast ing Glucose result from 100 to 125 mg/dL suggests IMPAIRED HOMEOSTASIS per A.D.A. criteria. Performed By: #### L 500.4100, L100.0100, L501.9985, L502.0250, L500.4050, L506.1000 #### [facility] [address] [place], [address] Potassium [Moles/Vol] 3.7 mmol/L Normal 3.5-5.1 [facility] [place] Comment on above: Order Comment: Order Date: 12/02/24 Order Info: [id number] - CMP Order Info: [id number] - LIPID Performed By: #### L 500.4100, L100.0100, L501.9985, L502.0250, L500.4050, L506.1000 #### [facility] [address] [place], [address] Sodium [Moles/Vol] 139 mmol/L Normal 136-145 [facility] Comment on above: Order Comment: Order Date: 12/02/24 Order Info: [id number] - CMP Order Info: [id number] - LIPID Performed By: #### L 500.4100, L100.0100, L501.9985, L502.0250, L500.4050, L506.1000 #### [facility] [address] [place], [address] T PROT 7.9 g/dL Normal 6.4-8.2 [facility] Comment on above: Order Comment: Order Date: 12/02/24 Order Info: [id number] - CMP Order Info: [id number] - LIPID Performed By: #### L 500.4100, L100.0100, L501.9985, L502.0250, L500.4050, L506.1000 #### [facility] [address] [place], [address] Urea nitrogen [Mass/Vol] 37 mg/dL High 7-18 [facility] Comment on above: Order Comment: Order Date: 12/02/24 Order Info: [id number] - CMP Order Info: [id number] - LIPID Performed By: #### L 500.4100, L100.0100, L501.9985, L502.0250, L500.4050, L506.1000 #### [facility] [address] [place], [address] Eosinophil percentageOrdered By: Floyd Guardado on 12-02-2024 Eosinophils/100 WBC (Bld) 2.0 % 0-5 [facility] Epithelial cells.squamous LM Ql (Urine sed)Ordered By: Floyd Guardado on 12-02-2024 Epithelial cells.squamous LM.HPF (Urine sed) [#/Area] 0 /[HPF] 0-5 [facility] Erythrocyte distribution wid th ratioOrdered By: Floyd Guardado on 12-02-2024 Erythrocyte distribution width (RBC) [Ratio] 15.1 % High 11.6-14.6 [facility] Erythrocyte distribution wid th standard deviationOrdered By: Floyd Guardado on 12-02-2024 Erythrocyte distribution width (RBC) [Entitic vol] 48.0 fL High 35.1-43.9 [facility] Estimated glomerular filtrat ion rate (GFR) AmericanOrdered By: Floyd Guardado on 12-02-2024 Estimated GFR (MDRD) Amer 33 mL/min Low >60 [facility] Comment on above: GFR Calc Glomerular filtration rate ( GFR) estimationOrdered By: Floyd Guardado on 12-02-2024 Estimated GFR (MDRD) Non-Af Amer 27 mL/min Low >60 [facility] Comment on above: Non- GFR Calc Glucose Ql (U)Ordered By: Rosi Guardado on 12-02-2024 Glucose (U) [Mass/Vol] 1000 mg/dL High Normal [facility] Glucose measurementOrdered B y: Floyd Guardado on 12-02-2024 Glucose [Mass/Vol] 106 mg/dL 74-106 [facility] [facility] Comment on above: Fasting Glucose resu lt from 100 to 125 mg/dL suggests IMPAIRED HOMEOSTASIS per A.D.A. criteria. Hematocrit Auto (Bld) [Volum e fraction]Ordered By: Floyd Guardado on 12-02-2024 Hematocrit (Bld) [Volume fraction] 47.5 % 40-54 [facility] Hemoglobin A1con 12-02-2024 HbA1c (Bld) [Mass fraction] 5.6 % Normal 3.8-5.6 [facility] Comment on above: Order Comment: Order Date: 12/02/24 Order Info: [id number] - A1C Result Comment: Norm al < 5.7 % Prediabetic 5.7 - 6.4 % Diabetic >or= 6.5 % Please note range changes. Performed By: #### L 500.4100, L100.0100, L501.9985, L502.0250, L500.4050, L506.1000 #### [facility] [address] [place], [place] [address]. [place], [place], [id number] Hemoglobin A1c percentageOrd ered By: Floyd Guardado on 12-02-2024 HbA1c (Bld) [Mass fraction] 5.6 % 3.8-5.6 [facility] Comment on above: Normal < 5.7 % Predi abetic 5.7 - 6.4 % Diabetic >or= 6.5 % Please note range changes. Hemoglobin measurementOrdere d By: Floyd Guardado on 12-02-2024 Hemoglobin (Bld) [Mass/Vol] 15.5 g/dL 13.0-16.5 [facility] High density lipoprotein (HD L) measurementOrdered By: Floyd Guardado on 12-02-2024 Cholesterol in HDL [Mass/Vol] 50 mg/dL >40 [facility] Comment on above: The drugs N-Acetylcy steine and Metamizole may falsely depress this assay. Reference Range HDL <40 mg/dL Low HDL Cholesterol HDL >or= 60 mg/dL High HDL Cholesterol Immature granulocytes/100 WB C Auto (Bld)Ordered By: Floyd Guardado on 12-02-2024 Immature granulocytes/100 WBC (Bld) 0.400 % 0.0-0.9 [facility] Comment on above: IG% - Immature Granu locytes (promyelocytes, myelocytes and metamyelocytes) > 1% indicates that a LEFT SHIFT is Present. Ketones Test strip Ql (U)Ord ered By: Floyd Guardado on 12-02-2024 Ketones Ql (U) 5 mg/dl High Negative [facility] - Chemistry and C hemistry - challengeOrdered By: Floyd Guardado on 12-02-2024 AST [Catalytic activity/Vol] 28 U/L 15-37 [facility] Lipid Profileon 12-02-2024 Cholesterol [Mass/Vol] 168 mg/dL Normal 200 [facility] Comment on above: Order Comment: Order Date: 12/02/24 Order Info: [id number] - CMP Order Info: [id number] - LIPID Result Comment: <200 mg/dL Desirable 200-240 mg/dL Borderline >240 mg/dL High Risk Performed By: #### L 500.4100, L100.0100, L501.9985, L502.0250, L500.4050, L506.1000 #### [facility] [address] [place], [address] Cholesterol in HDL [Mass/Vol] 50 mg/dL Normal [facility] Comment on above: Order Comment: Order Date: 12/02/24 Order Info: [id number] - CMP Order Info: [id number] - LIPID Result Comment: The drugs N-Acetylcysteine and Metamizole may falsely depress this assay. Reference Range HDL <40 mg/dL Low HDL Cholesterol HDL >or= 60 mg/dL High HDL Cholesterol Performed By: #### L 500.4100, L100.0100, L501.9985, L502.0250, L500.4050, L506.1000 #### [facility] [address] [place], [address] Cholesterol in LDL [Mass/Vol] 63 mg/dL Normal 0-130 [facility] Comment on above: Order Comment: Order Date: 12/02/24 Order Info: [id number] - CMP Order Info: [id number] - LIPID Performed By: #### L 500.4100, L100.0100, L501.9985, L502.0250, L500.4050, L506.1000 #### [facility] [address] [place], [address] Cholesterol in VLDL [Mass/Vol] 55 mg/dL High 5-40 [facility] Comment on above: Order Comment: Order Date: 12/02/24 Order Info: [id number] - CMP Order Info: [id number] - LIPID Performed By: #### L 500.4100, L100.0100, L501.9985, L502.0250, L500.4050, L506.1000 #### [facility] [address] [place], [address] Triglyceride [Mass/Vol] 273 mg/dL High [facility] Comment on above: Order Comment: Order Date: 12/02/24 Order Info: [id number] - CMP Order Info: [id number] - LIPID Result Comment: The drugs N-Acetylcysteine and Metamizole may falsely depress this assay. Serum Triglycerides Reference Interval Normal <150 mg/dL Borderline high 150 - 199 mg/dL High 200 - 499 mg/dL Very High > or = 500 mg/dL Performed By: #### L 500.4100, L100.0100, L501.9985, L502.0250, L500.4050, L506.1000 #### [facility] [address] [place], [address] Low density lipoprotein (LDL ) cholesterol measurementOrdered By: Floyd Guardado on 12-02-2024 Cholesterol in LDL [Mass/Vol] 63 mg/dL 0-130 [facility] Lymphocytes Auto (Unsp spec) [#/Vol]Ordered By: Floyd Guardado on 12-02-2024 Lymphocytes (Bld) [#/Vol] 0.75 10*3/uL Low 0.83-4.51 [facility] Lymphocytes/100 WBC Auto (Un sp spec)Ordered By: Floyd Guardado on 12-02-2024 Lymphocytes/100 WBC (Bld) 10.5 % Low 19-41 [facility] MCV (mean corpuscular volume ) determinationOrdered By: Floyd Guardado on 12-02-2024 MCV (RBC) [Entitic vol] 88.3 fL 80-94 [facility] Mean corpuscular hemoglobin (MCH) determinationOrdered By: Floyd Guardado on 12-02-2024 MCH (RBC) [Entitic mass] 28.8 pg 27.0-32.0 [facility] Mean corpuscular hemoglobin concentration (MCHC) determinationOrdered By: Floyd Guardado on 12-02-2024 MCHC (RBC) [Mass/Vol] 32.6 g/dL 32-36 [facility] Mean platelet volume determi nationOrdered By: Floyd Guardado on 12-02-2024 Platelet mean volume (Bld) [Entitic vol] 9.1 fL 6.2-12.0 [facility] Microalb:Creat Ratio,Random URon 12-02-2024 MALB:CRE 2943.2 mg/g CRE High <30 mg/g CRE [facility] Comment on above: Order Comment: Order Date: 12/02/24 Order Info: [id number] - MIACRE Performed By: #### L 500.4100, L100.0100, L501.9985, L502.0250, L500.4050, L506.1000 #### [facility] [address] [place], [address] MICROALBUMIN,UR 1710.0 mg/L Normal NO RANGE EST. [facility] Comment on above: Order Comment: Order Date: 12/02/24 Order Info: [id number] - MIACRE Performed By: #### L 500.4100, L100.0100, L501.9985, L502.0250, L500.4050, L506.1000 #### [facility] [address] [place], [address] Microscopic analysis of urin e for red blood cells (RBC)Ordered By: Floyd Guardado on 12-02-2024 Urine RBC 0-5 SEEN /hpf 0-5 [facility] Monocyte percentageOrdered B y: Floyd Guardado on 12-02-2024 Monocytes/100 WBC (Bld) 10.1 % High 0-10 [facility] Mucus LM Ql (Urine sed)Order ed By: Floyd Guardado on 12-02-2024 Mucus Ql (Urine sed) 0 SEEN /hpf [facility] Neutrophil percentageOrdered By: Floyd Guardado on 12-02-2024 Neutrophils/100 WBC (Bld) 75.9 % High 47-70 [facility] Nitrite Test strip Ql (U)Ord ered By: Floyd Guardado on 12-02-2024 Nitrite Ql (U) Positive High Negative [facility] Nucleated red blood cell per centageOrdered By: Floyd Guardado on 12-02-2024 Nucleated RBC/100 WBC (Bld) [Ratio] 0 % 0-5 [facility] Platelet countOrdered By: Rosi Guardado on 12-02-2024 Platelets (Bld) [#/Vol] 229 10*3/uL 150-450 [facility] Potassium measurementOrdered By: Floyd Guardado on 12-02-2024 Potassium [Moles/Vol] 3.7 mmol/L 3.5-5.1 [facility] Protein Test strip Ql (U)Ord ered By: Floyd Guardado on 12-02-2024 Protein Ql (U) 500 mg/dl High Negative [facility] Protein+Creatinine Ratio,Uri neon 12-02-2024 PROT:CRE RATIO 4093 mg/g CRE High 0-200 [facility] Comment on above: Order Comment: Order Date: 12/02/24 Order Info: [id number] - CMP Order Info: [id number] - LIPID Performed By: #### L 500.4100, L100.0100, L501.9985, L502.0250, L500.4050, L506.1000 #### [facility] [address] [place], [address] Protein (U) [Mass/Vol] 237.8 mg/dL High <11.9 [facility] Comment on above: Order Comment: Order Date: 12/02/24 Order Info: [id number] - CMP Order Info: [id number] - LIPID Performed By: #### L 500.4100, L100.0100, L501.9985, L502.0250, L500.4050, L506.1000 #### [facility] [address] [facility] [place], [address] UR CREAT 58.10 mg/dL Normal NO RANGE EST. [facility] Comment on above: Order Comment: Order Date: 12/02/24 Order Info: [id number] - CMP Order Info: [id number] - LIPID Performed By: #### L 500.4100, L100.0100, L501.9985, L502.0250, L500.4050, L506.1000 #### [facility] [address] [place], [address] Protein/Creatinine (U) [Mass ratio]Ordered By: Floyd Guardado on 12-02-2024 Urine Protein/Creatinine Ratio 4093 mg/g CRE High 0-200 [facility] RBC Auto (Bld) [#/Vol]Ordere d By: Floyd Guardado on 12-02-2024 RBC (Bld) [#/Vol] 5.38 10*6/uL 4.6-6.2 [facility] Random urine microalbumin me asurementOrdered By: Floyd Guardado on 12-02-2024 Urine Random Microalbumin 1710.0 mg/L NO RANGE EST. [facility] Random urine protein measure mentOrdered By: Floyd Guardado on 12-02-2024 Protein (U) [Mass/Vol] 237.8 mg/dL High 0.0-11.8 [facility] Serum anion gap measurementO rdered By: Floyd Guardado on 12-02-2024 Anion gap [Moles/Vol] 10 mmol/L 5-15 [facility] Serum globulin measurementOr dered By: Floyd Guardado on 12-02-2024 Globulin (S) [Mass/Vol] 4.3 g/dL High 2.2-4.2 [facility] Serum or plasma alanine franklin otransferase (ALT) measurementOrdered By: Floyd Guardado on 12-02-2024 ALT [Catalytic activity/Vol] 35 U/L 16-61 [facility] Serum or plasma albumin carl urement (mass/volume)Ordered By: Floyd Guardado on 12-02-2024 Albumin [Mass/Vol] 3.6 g/dL 3.2-5.0 [facility] Serum or plasma alkaline citlali sphatase measurementOrdered By: Floyd Guardado on 12-02-2024 ALP [Catalytic activity/Vol] 188 U/L High 45-117 [facility] Serum or plasma calcium carl urement (mass/volume)Ordered By: Floyd Guardado on 12-02-2024 Calcium [Mass/Vol] 10.0 mg/dL 8.5-10.1 [facility] Serum or plasma cholesterol measurement (mass/volume)Ordered By: Floyd Guardado on 12-02-2024 Cholesterol [Mass/Vol] 168 mg/dL <200 [facility] Comment on above: <200 mg/dL Desirable 200-240 mg/dL Borderline >240 mg/dL High Risk Serum or plasma creatinine m easurement (mass/volume)Ordered By: Floyd Guardado on 12-02-2024 Creatinine [Mass/Vol] 2.87 mg/dL High 0.70-1.30 [facility] Comment on above: The validity of the calculated GFR & GFRAA in patients over 70 years has not been determined. Clinical correlation is essential. Serum or plasma urea nitroge n measurement (mass/volume)Ordered By: Floyd Guardado on 12-02-2024 Urea nitrogen [Mass/Vol] 37 mg/dL High 7-18 [facility] Sodium levelOrdered By: Floyd Guardado on 12-02-2024 Sodium [Moles/Vol] 139 mmol/L 136-145 [facility] Total proteinOrdered By: Omid Guardado on 12-02-2024 Protein [Mass/Vol] 7.9 g/dL 6.4-8.2 [facility] Transitional cells LM Ql (Ur ine sed)Ordered By: Floyd Guardado on 12-02-2024 Urine Transitional Epithelial Cells 0-5 SEEN /hpf 0-5 [facility] Triglycerides measurementOrd ered By: Floyd Guardado on 12-02-2024 Triglyceride [Mass/Vol] 273 mg/dL High <199 [facility] Comment on above: The drugs N-Acetylcy steine and Metamizole may falsely depress this assay.Serum Triglycerides Reference Interval Normal <150 mg/dL Borderline high 150 - 199 mg/dL High 200 - 499 mg/dL Very High > or = 500 mg/dL Urinalysis, Completeon 12-02 WBC >100 SEEN Normal 0-5 [facility] Comment on above: Order Comment: Order Date: 12/02/24 Order Info: [id number] - CMP Order Info: [id number] - LIPID Performed By: #### L 500.4100, L100.0100, L501.9985, L502.0250, L500.4050, L506.1000 #### [facility] [address] [facility] [place], [place], [id number] EPI,TRANSITION 0-5 SEEN Normal 0-5 [facility] Comment on above: Order Comment: Order Date: 12/02/24 Order Info: [id number] - CMP Order Info: [id number] - LIPID Performed By: #### L 500.4100, L100.0100, L501.9985, L502.0250, L500.4050, L506.1000 #### [facility] [address] [facility] [place], [address] RBC 0-5 SEEN Normal 0-5 [facility] Comment on above: Order Comment: Order Date: 12/02/24 Order Info: [id number] - CMP Order Info: [id number] - LIPID Performed By: #### L 500.4100, L100.0100, L501.9985, L502.0250, L500.4050, L506.1000 #### [facility] [address] [place], [address] BACTERIA 1+ /hpf Normal None Seen [facility] Comment on above: Order Comment: Order Date: 12/02/24 Order Info: [id number] - CMP Order Info: [id number] - LIPID Performed By: #### L 500.4100, L100.0100, L501.9985, L502.0250, L500.4050, L506.1000 #### [facility] [address] [place], [address] EPI,SQUAMOUS 0 SEEN Normal 0-5 [facility] Comment on above: Order Comment: Order Date: 12/02/24 Order Info: [id number] - CMP Order Info: [id number] - LIPID Performed By: #### L 500.4100, L100.0100, L501.9985, L502.0250, L500.4050, L506.1000 #### [facility] [address] [place], [address] Mucus Ql (Urine sed) 0 SEEN Normal [facility] Comment on above: Order Comment: Order Date: 12/02/24 Order Info: [id number] - CMP Order Info: [id number] - LIPID Performed By: #### L 500.4100, L100.0100, L501.9985, L502.0250, L500.4050, L506.1000 #### [facility] [address] [place], [place], [address] Urine albumin/creatinine rat io for detection of microalbuminuriaOrdered By: Floyd Guardado on 12-02-2024 Urine Microalbumin/Creatinine Ratio 2943.2 mg/g CRE High <30 [facility] Urine blood detectionOrdered By: Floyd Guardado on 12-02-2024 Urine Occult Blood 10 /ul High Negative [facility] Urine clarityOrdered By: Omid Guardado on 12-02-2024 Clarity (U) Clear Clear [facility] Urine color determinationOrd ered By: Floyd Guardado on 12-02-2024 Color (U) Yellow Yellow [facility] Urine creatinine measurement (mass/volume)Ordered By: Floyd Guardado on 12-02-2024 Creatinine (U) [Mass/Vol] 58.10 mg/dL NO RANGE EST. [facility] Urine cultureOrdered By: Omid Guardado on 12-02-2024 Bacteria identified Cx Nom (U) Staphylococcus epidermidis Abnormal [facility] Urine leukocyte esterase det ection by dipstickOrdered By: Floyd Guardado on 12-02-2024 Leukocyte esterase Test strip Ql (U) 500 /ul High Negative [facility] Urine pHOrdered By: Floyd sumner on 12-02-2024 pH (U) 6.0 [pH] 5.0 - 8.0 [facility] Urine sediment bacteria coun t by microscopy (number/high power field)Ordered By: Floyd Guardado on 12-02-2024 Bacteria LM.HPF (Urine sed) [#/Area] 1 /[HPF] None Seen [facility] Urine specific gravity measu rementOrdered By: Floyd Guardado on 12-02-2024 Specific gravity (U) [Rel density] 1.015 1.002-1.030 [facility] Urobilinogen Ql (U)Ordered B y: Floyd Guardado on 12-02-2024 Urine Urobilinogen Normal mg/dl Normal [facility] Venous Duplex US - Weston Extre mon 12-02-2024 Venous Duplex US - Weston Extrem [facility] [address] [place] [address] Venous Duplex US - [facility]on Extrem 12/02/24 1319 MR#: [id number] Acct: [id number] Name: DANN PALACIOS Rep #: [id number] : 1990 34 From: Teja Payton MD Attending Dr: Dr. Floyd Guardado MD Status: R EG CLI Ordering Dr: Floyd Guardado MD Date: 12/02/24 Location: CVS Sex: M C Admitted: Reason For Study: Bilateral edema RIGHT LEFT GSV is normal. GSV is normal. CFV is compressible, spontaneous, phasic, CFV is compressible, spontaneous, phasic, competent and demonstrates normal competent, and demonstrates normal augmentation. augmentation. FV is compressible, spontaneous, phasic, FV is compressible, spontaneous, phasic, competent and demonstrates normal competent and demonstrates normal augmentation. augmentation. POP V is compressible, spontaneous, phasic, POP V is compressible, spontaneous, phasic, competent and demonstrates normal competent and demonstrates normal augmentation. augmentation. T/P Trunk is compressible. T/P Trunk is compressible. PTV is compressible. PTV is compressible. RT PerV is compressible. LT PerV is compressible. Procedure This is a venous duplex using B-mode, color flow and spectral Doppler. Exam performed in department. A preliminary report was called and/or faxed to Dr. Guardado. VL/Venous Duplex US - Weston Extrem Interpretation Summary Deep veins of the lower extremities are bilaterally patent and compressible segmentally. There is no evidence of deep vein thrombosis on either side. Valvular competence appears intact within the proximal deep venous systems bilaterally. The great saphenous veins appear bilaterally patent and compressible segmentally. Ordering Physician: Floyd Guardado Referring Physician: Floyd Guardado Performed By: Yaritza Cruz T 12/02/242019 Date Teja Payton MD CC: Dr. Floyd Guardado MD Date Dictated: 12/02/24 1319 Date Transcribed: 12/02/242019 Operations Staff Specialist Security: Signed Normal [facility] Very low density lipoprotein (VLDL) cholesterol measurementOrdered By: Floyd Guardado on 12-02-2024 VLDL Cholesterol 55 mg/dL High 5-40 [facility] Vitamin D,25 Hydroxyon 12-02 Vitamin D 25-OH 36.1 ng/mL Normal [facility] Comment on above: Order Comment: Order Date: 12/02/24 Order Info: [id number] - [id number] Result Comment: Linda min D 25(OH) Status Range Deficiency <20 ng/mL (50nmol/L) Insufficiency 20 - 30 ng/mL (50 - 75 nmol/L) Sufficiency 30 - 100 ng/mL (75 - 250 nmol/L) Toxicity >100 ng/mL (>250 nmol/L) Performed By: #### L 500.4100, L100.0100, L501.9985, L502.0250, L500.4050, L506.1000 #### [facility] [address] [place], [address] White blood cell (WBC) count Ordered By: Floyd Guardado on 12-02-2024 WBC (Bld) [#/Vol] 7.1 10*3/uL 4.4-11.0 [facility] White blood cell countOrdere d By: Floyd Guardado on 12-02-2024 Urine WBC >100 SEEN /hpf 0-5 [facility] Absolute neutrophil countOrd ered By: Blanche Miner on 11-11-2024 Neutrophils (Bld) [#/Vol] 4.5 10*3/uL 2.0-7.7 [facility] Basic Metabolic Profile (BMP )on 11-11-2024 BUN/CRE 14.1 RATIO Normal 10-20 [facility] Comment on above: Performed By: #### L 500.2500, L100.0100 #### [facility] [address] [place], [address] CA,Total 9.2 mg/dL Normal 8.5-10.1 [facility] Comment on above: Performed By: #### L 500.2500, L100.0100 #### [facility] [address] [place], [address] Chloride [Moles/Vol] 107 mmol/L Normal 98-107 [facility] Comment on above: Performed By: #### L 500.2500, L100.0100 #### [facility] [address] [place], [address] CO2 [Moles/Vol] 22.0 mmol/L Normal 21.0-32.0 [facility] Comment on above: Performed By: #### L 500.2500, L100.0100 #### [facility] [address] [place], [address] Creatinine [Mass/Vol] 2.84 mg/dL High 0.70-1.30 [facility] Comment on above: Result Comment: The validity of the calculated GFR GFRAA in patients over 70 years has not been determined. Clinical correlation is essential. Performed By: #### L 500.2500, L100.0100 #### [facility] [address] [place], [address] ECRCL 51.98 ml/min Normal [facility] Comment on above: Performed By: #### L 500.2500, L100.0100 #### [facility] [address] [place], [address] EST GFR - AA 33 mL/min Low >60 [facility] Comment on above: Result Comment: Afri can Iraqi GFR Calc Performed By: #### L 500.2500, L100.0100 #### [facility] [address] [place], [address] GAP 10 Normal 5-15 [facility] Comment on above: Performed By: #### L 500.2500, L100.0100 #### [facility] [address] [place], [address] GFR/1.73 sq M.predicted among non-blacks MDRD (S/P/Bld) [Vol rate/Area] 27 mL/min/{1.73_m2} Low >60 [facility] Comment on above: Result Comment: Non- GFR Calc Performed By: #### L 500.2500, L100.0100 #### [facility] [address] [place], [address] Glucose [Mass/Vol] 86 mg/dL Normal 74-106 [facility] Comment on above: Performed By: #### L 500.2500, L100.0100 #### [facility] [address] [place], [address] Potassium [Moles/Vol] 3.5 mmol/L Normal 3.5-5.1 [facility] Comment on above: Performed By: #### L 500.2500, L100.0100 #### [facility] [address] [place], [address] Sodium [Moles/Vol] 138 mmol/L Normal 136-145 [facility] Comment on above: Performed By: #### L 500.2500, L100.0100 #### [facility] [address] [place], [address] Urea nitrogen [Mass/Vol] 40 mg/dL High 7-18 [facility] Comment on above: Performed By: #### L 500.2500, L100.0100 #### [facility] [address] [place], [address] Basophil percentageOrdered B y: Blanche Miner on 11-11-2024 Basophils/100 WBC (Bld) 0.6 % 0-1 [facility] Bedside Glucoseon 11-11-2024 FINGERSTICK GLU 93 mg/dL Normal 74-106 [facility] Comment on above: Result Comment: JAZMYNE GONZALEZ OF PATIENT CARE PER NURSING PROTOCOL Performed By: #### L 501.080 #### [facility] [address] [place], [address] Blood urea nitrogen (BUN)/cr eatinine ratioOrdered By: Blanche Miner on 11-11-2024 Urea nitrogen/Creatinine [Mass ratio] 14.1 mg/mg 10-20 [facility] CBC W/Diff, Automatedon 10-18 Absolute Lymph 0.44 X10 3/uL Low 0.83-4.51 [facility] Comment on above: Performed By: #### L 500.2500, L100.0100 #### [facility] [address] [place], [address] Absolute Neut 4.5 X10 3/uL Normal 2.0-7.7 [facility] Comment on above: Performed By: #### L 500.2500, L100.0100 #### [facility] [address] [place], [address] Basophils/100 WBC (Bld) 0.6 % Normal 0-1 [facility] Comment on above: Performed By: #### L 500.2500, L100.0100 #### [facility] [address] [place], [address] Eosinophils/100 WBC (Bld) 0.5 % Normal 0-5 [facility] Comment on above: Performed By: #### L 500.2500, L100.0100 #### [facility] [address] [place], [address] Erythrocyte distribution width (RBC) [Ratio] 14.8 % High 11.6-14.6 [facility] Comment on above: Performed By: #### L 500.2500, L100.0100 #### [facility] [address] [place], [address] Hematocrit (Bld) [Volume fraction] 39.8 % Low 40-54 [facility] Comment on above: Performed By: #### L 500.2500, L100.0100 #### [facility] [address] [place], [address] Hemoglobin (Bld) [Mass/Vol] 13.6 g/dL Normal 13.0-16.5 [facility] Comment on above: Performed By: #### L 500.2500, L100.0100 #### [facility] [address] [place], [address] IG% 1.100 High 0.0-0.9 [facility] Comment on above: Result Comment: IG% - Immature Granulocytes (promyelocytes, myelocytes and metamyelocytes) > 1% indicates that a LEFT SHIFT is Present. Performed By: #### L 500.2500, L100.0100 #### [facility] [address] [place], [address] Lymphocytes/100 WBC (Bld) 7.1 % Low 19-41 [facility] Comment on above: Performed By: #### L 500.2500, L100.0100 #### [facility] [address] [place], [address] MCH (RBC) [Entitic mass] 29.8 pg Normal 27.0-32.0 [facility] Comment on above: Performed By: #### L 500.2500, L100.0100 #### [facility] [address] [place], [address] MCHC (RBC) [Mass/Vol] 34.2 g/dL Normal 32-36 [facility] Comment on above: Performed By: #### L 500.2500, L100.0100 #### [facility] [address] [place], [address] MCV (RBC) [Entitic vol] 87.3 fL Normal 80-94 [facility] Comment on above: Performed By: #### L 500.2500, L100.0100 #### [facility] [address] [place], [address] Monocytes/100 WBC (Bld) 18.5 % High 0-10 [facility] Comment on above: Performed By: #### L 500.2500, L100.0100 #### [facility] [address] [place], [address] Neutrophils/100 WBC (Bld) 72.2 % High 47-70 [facility] Comment on above: Performed By: #### L 500.2500, L100.0100 #### [facility] [address] [place], [address] Nucleated RBC (Bld) [#/Vol] 0 10*3/uL Normal 0-5 [facility] Comment on above: Performed By: #### L 500.2500, L100.0100 #### [facility] [address] [place], [address] Platelet mean volume (Bld) [Entitic vol] 8.6 fL Normal 6.2-12.0 [facility] Comment on above: Performed By: #### L 500.2500, L100.0100 #### [facility] [address] [place], [address] Platelets (Bld) [#/Vol] 148 10*3/uL Low 150-450 [facility] Comment on above: Performed By: #### L 500.2500, L100.0100 #### [facility] [address] [place], [address] RBC (Bld) [#/Vol] 4.56 10*6/uL Low 4.6-6.2 [facility] Comment on above: Performed By: #### L 500.2500, L100.0100 #### [facility] [address] [place], [address] RDW SD 47.4 fl High 35.1-43.9 [facility] Comment on above: Performed By: #### L 500.2500, L100.0100 #### [facility] [address] [place], [address] WBC (Bld) [#/Vol] 6.2 10*3/uL Normal 4.4-11.0 [facility] Comment on above: Performed By: #### L 500.2500, L100.0100 #### [facility] [address] [place], [address] Carbon dioxide measurementOr dered By: Blanche Miner on 11-11-2024 CO2 [Moles/Vol] 22.0 mmol/L 21.0-32.0 [facility] Chest PA and Lateralon 11-11 Chest PA and Lateral [facility] [address] [place] [address] Chest PA and Lateral MR#: [id number] Acct: [id number] Name: DANN PALACIOS Rep #: [id number] : 1990 M 34 From: Dai saenz MD PCP: Dr. Floyd Guardado MD Status: REG ER Study: Chest PA and Lateral Date of Exam: 11/11/24 Exam# [id number] Ordering Dr: Blanche Miner [id number] HISTORY: cough. TECHNIQUE: XR Chest 2 Views. COMPARISON: 06/04/2022. FINDINGS: CARDIOMEDIASTINAL BORDERS: Cardiac silhouette within normal limits in size. Mediastinal contour unremarkable. LUNGS: Mild bibasilar opacities. PLEURA: No pleural effusion or pneumothorax seen. OSSEOUS STRUCTURES: Unremarkable. RAD/Chest PA and Lateral IMPRESSION: Mild bibasilar atelectasis or pneumonia. Electronically Signed: Dai Jennings MD at 14:09 EST , CC: Dr. Floyd Guardado MD; JOSE ALEJANDRO Taylor Operations Staff Specialist Security: Signed Normal [facility] Chloride measurementOrdered By: Blanche Miner on 11-11-2024 Chloride [Moles/Vol] 107 mmol/L 98-107 [facility] Emergency Department Summary on 11-11-2024 Emergency Department Summary [facility] Medical Records Department [address] [place] [address] Emergency Department Summary 11/11/24 MR#: [id number] Acct: [id number] Name: DANN PALACIOS Rep #: [id number] : 1990 34 From: Blanche BLOUNT PCP: Dr. Floyd Guardado MD Status:DEP ER Location: ED HPI History of Present Illness Chief Complaint: General Illness Narrative Narrative: Patient presenting today due to hyperglycemia and flulike symptoms. Patient has a PMH of T2DM, CKD, HTN, testicular cancer in remission, and cognitive impairment. He is here with his caregiver who reports that this morning the home health nurse came out, his blood sugar was 476 which is unusual for him, he does not take insulin but takes Trulicity once weekly, she did give him his dose today. He has had nasal congestion and a nonproductive cough over the last two days. Today he had a fever of 101.1 ???F. He also has a history of lower extremity edema and takes Lasix as needed, he was given a 20 mg Lasix dose this morning due to lower extremity swelling. He does admit to eating a lot of ham and cookies yesterday at [place]. He denies abdominal pain, nausea, vomiting, and chest pain. [facility] Medical History [facility] Wears glasses OCD (obsessive compulsive disorder) Anxiety Diabetes Bladder disease Back pain Dietary restriction Non-smoker CPAP (continuous positive airway pressure) dependence Shortness of breath on exertion Hx of testicular biopsy 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 Proteinuria Obstructive uropathy Hyperparathyroidism Prediabetes Sebaceous cyst Autism Severe sepsis Acute on chronic renal failure Cellulitis of right lower extremity Morbid obesity with BMI of 40.0-44.9, adult mrdd Home Medications ???Medication ???Instructions ???Recorded ???Last Taken ???Type ammonium lactate 12 % lotion 57 g TP BID 04/28/17 Unknown History (AmLactin) bupropion HCl 75 mg tablet 75 mg PO BID 04/28/17 06/20/23 History cholecalciferol (vitamin D3) 50 2,000 unit PO DAILY 04/28/17 Unknown History mcg (2,000 unit) capsule (Vitamin D3) fluvoxamine 50 mg tablet 100 mg PO BID 04/28/17 06/20/23 History montelukast 10 mg tablet 10 mg PO QHS 04/28/17 Unknown History (Singulair) oxybutynin chloride 5 mg tablet 5 mg PO BID 04/28/17 Unknown History risperidone 1 mg tablet 1 mg PO 4X/DAY 04/28/17 06/20/23 History clonazepam 0.5 mg tablet 1 tab PO BID 06/04/22 06/20/23 History glimepiride 1 mg tablet 1 mg PO DAILY #30 tabs 06/04/22 Unknown Rx lamotrigine 100 mg tablet 1 tab PO BID 06/04/22 Unknown History lamotrigine 25 mg tablet 1 tab PO DAILY 06/04/22 Unknown History quetiapine 200 mg tablet 1 tab PO BID 06/04/22 06/20/23 History dapagliflozin propanediol 10 mg 10 mg PO DAILY 05/15/23 Unknown History tablet (Farxiga) dulaglutide 0.75 mg/0.5 mL 0.75 mg subcut QWEEK 05/15/23 11/11/24 History subcutaneous pen injector (Trulicity) oxycodone-acetaminophen 5 mg-325 1 tab PO Q6H PRN PRN Pain 3 days 06/10/23 Unknown Rx mg tablet #10 TABLETS amlodipine 2.5 mg tablet 2.5 mg PO DAILY #30 tabs 06/20/23 Unknown Rx hydrocodone-acetaminophe n 5-325mg 1 tab PO Q6H PRN PRN Pain 3 days 06/20/23 Unknown Rx 5mg-325mg #10 TABLETS hydrocodone-acetaminophe n 5-325mg 1 tab PO Q6H PRN PRN Pain 3 days 06/24/23 Unknown Rx 5mg-325mg #10 TABLETS fluticasone propionate 50 2 spray intranasal DAILY 02/16/24 Unknown History mcg/actuation nasal spray,suspension acetaminophen 325 mg tablet 650 mg PO Q4H PRN 11/11/24 Unknown History amlodipine 10 mg tablet 10 mg PO DAILY 11/11/24 Unknown History furosemide 20 mg tablet 20 mg PO DAILY PRN edema 11/11/24 Unknown History ondansetron 4 mg disintegrating 4 mg PO Q8H PRN nausea and vomiting 11/11/24 Unknown History tablet oseltamivir 30 mg capsule (Tamiflu) 30 mg PO DAILY 5 days #5 caps 11/11/24 Unknown Rx potassium chloride 20 mEq/15 mL 20 meq PO DAILY 11/11/24 Unknown History oral liquid spironolactone 25 mg tablet 25 mg PO DAILY 11/11/24 Unknown History Allergy/AdvReac Type Severity Reaction Status Date / Time cephalexin (From Keflex) Allergy Rash Verified 11/11/24 11:23 Surgical History History of nasal surgery History of excision of mass Social History adopted: Yes housing: house Smoking Status: Never smoker ROS ROS ED Constitutional Constitutional ED: Reports fever(s) Cardiovascular Cardiovascular: Denies chest pain or palpitations Respiratory/Chest Respiratory/Chest: Reports cough; Denies dyspnea or wheezing Gastrointestinal Gastrointestinal (more content not included)... Normal [facility] Eosinophil percentageOrdered By: Blanche Miner on 11-11-2024 Eosinophils/100 WBC (Bld) 0.5 % 0-5 [facility] Erythrocyte distribution wid th ratioOrdered By: Blanche Miner on 11-11-2024 Erythrocyte distribution width (RBC) [Ratio] 14.8 % High 11.6-14.6 [facility] Erythrocyte distribution wid th standard deviationOrdered By: Blanche Miner on 11-11-2024 Erythrocyte distribution width (RBC) [Entitic vol] 47.4 fL High 35.1-43.9 [facility] Estimated glomerular filtrat ion rate (GFR) AmericanOrdered By: Blanche Miner on 11-11-2024 Estimated GFR (MDRD) Amer 33 mL/min Low >60 [facility] Comment on above: GFR Calc Estimation of creatinine faarz aranceOrdered By: Blanche Miner on 11-11-2024 Estimated Creatinine Clearance Calc 51.98 ml/min [facility] Glomerular filtration rate ( GFR) estimationOrdered By: Blanche Miner on 11-11-2024 Estimated GFR (MDRD) Non-Af Amer 27 mL/min Low >60 [facility] Comment on above: Non- GFR Calc Glucose measurementOrdered B y: Blanche Miner on 11-11-2024 Glucose [Mass/Vol] 86 mg/dL 74-106 [facility]dered By: ED PROVIDER on 11-11-2024 Bedside Glucose (Misc Panel) 93 mg/dL 74-106 [facility] Comment on above: MANAGEMENT OF PATIEN T CARE PER NURSING PROTOCOL Hematocrit Auto (Bld) [Volum e fraction]Ordered By: Blanche Miner on 11-11-2024 Hematocrit (Bld) [Volume fraction] 39.8 % Low 40-54 [facility] Hemoglobin measurementOrdere d By: Blanche Miner on 11-11-2024 Hemoglobin (Bld) [Mass/Vol] 13.6 g/dL 13.0-16.5 [facility] Immature granulocytes/100 WB C Auto (Bld)Ordered By: Blanche Miner on 11-11-2024 Immature granulocytes/100 WBC (Bld) 1.100 % High 0.0-0.9 [facility] Comment on above: IG% - Immature Granu locytes (promyelocytes, myelocytes and metamyelocytes) > 1% indicates that a LEFT SHIFT is Present. Influenza virus A and B and SARS-CoV-2 (COVID-19) and Respiratory syncytial virus RNAOrdered By: Blanche Miner on 11-11-2024 SARS-CoV-2 (COVID-19) RNA COLTEN+probe Ql (Unsp spec) Influenzae A Abnormal [facility] Lymphocytes Auto (Unsp spec) [#/Vol]Ordered By: Blanche Miner on 11-11-2024 Lymphocytes (Bld) [#/Vol] 0.44 10*3/uL Low 0.83-4.51 [facility] Lymphocytes/100 WBC Auto (Un sp spec)Ordered By: Blanche Miner on 11-11-2024 Lymphocytes/100 WBC (Bld) 7.1 % Low 19-41 [facility] M100.678on 11-11-2024 M100.678 Copy of report sent to Infection Control Printer MS#[id number] 11/11/24 Arun VENTURA. SARS-CoV-2 (COVID 19) Negative INFLUENZA A A Positive A INFLUENZA B Negative RSV PCR Negative INFLUENZAE A Normal [facility] Comment on above: Performed By: #### L 500.4100, L100.0100, L501.9985, L502.0250, L500.4050, L506.1000 #### [facility] [address] [place], [address] MCV (mean corpuscular volume ) determinationOrdered By: Blanche Miner on 11-11-2024 MCV (RBC) [Entitic vol] 87.3 fL 80-94 [facility] Mean corpuscular hemoglobin (MCH) determinationOrdered By: Blanche Miner on 11-11-2024 MCH (RBC) [Entitic mass] 29.8 pg 27.0-32.0 [facility] Mean corpuscular hemoglobin concentration (MCHC) determinationOrdered By: Blanche Miner on 11-11-2024 MCHC (RBC) [Mass/Vol] 34.2 g/dL 32-36 [facility] Mean platelet volume determi nationOrdered By: Blanche Miner on 11-11-2024 Platelet mean volume (Bld) [Entitic vol] 8.6 fL 6.2-12.0 [facility] Monocyte percentageOrdered B y: Blanche Miner on 11-11-2024 Monocytes/100 WBC (Bld) 18.5 % High 0-10 [facility] Neutrophil percentageOrdered By: Blanche Miner on 11-11-2024 Neutrophils/100 WBC (Bld) 72.2 % High 47-70 [facility] Nucleated red blood cell per centageOrdered By: Blanche Miner on 11-11-2024 Nucleated RBC/100 WBC (Bld) [Ratio] 0 % 0-5 [facility] Platelet countOrdered By: Floresita Miner on 11-11-2024 Platelets (Bld) [#/Vol] 148 10*3/uL Low 150-450 [facility] Potassium measurementOrdered By: Blanche Miner on 12-26-2024 Potassium [Moles/Vol] 3.5 mmol/L 3.5-5.1 [facility] RBC Auto (Bld) [#/Vol]Ordere d By: Blacnhe Miner on 11-11-2024 RBC (Bld) [#/Vol] 4.56 10*6/uL Low 4.6-6.2 [facility] Serum anion gap measurementO rdered By: Blanche Miner on 11-11-2024 Anion gap [Moles/Vol] 10 mmol/L 5-15 [facility] Serum or plasma calcium carl urement (mass/volume)Ordered By: Blanche Miner on 11-11-2024 Calcium [Mass/Vol] 9.2 mg/dL 8.5-10.1 [facility] Serum or plasma creatinine m easurement (mass/volume)Ordered By: Blanche Miner on 11-11-2024 Creatinine [Mass/Vol] 2.84 mg/dL High 0.70-1.30 [facility] Comment on above: The validity of the calculated GFR & GFRAA in patients over 70 years has not been determined. Clinical correlation is essential. Serum or plasma urea nitroge n measurement (mass/volume)Ordered By: Blanche Miner on 11-11-2024 Urea nitrogen [Mass/Vol] 40 mg/dL High 7-18 [facility] Sodium levelOrdered By: Barrington Miner on 11-11-2024 Sodium [Moles/Vol] 138 mmol/L 136-145 [facility] White blood cell (WBC) count Ordered By: Blanche Miner on 11-11-2024 WBC (Bld) [#/Vol] 6.2 10*3/uL 4.4-11.0 [facility] AFP SerPl-mCncon 11-05-2024 AFP [Mass/Vol] 2.41 ng/mL Normal <9.00 [facility] Comment on above: Order Comment: Speci men Type: BLOOD SPECIMENOrdering Facility: [facility] Address: [address] [address] Result Comment: The Alpha-Fetoprotein test was performed using the Sh[employer]yle [employer] DxI immunoenzymatic assay. Results obtained with different assay methods or kits cannot be used interchangeably. Performed By: #### 1 834-1 ####[facility] LABCLIA [id number] [address] [place] [place] [address] [place] BETA HCG QUANT TUMOR MARKERo n 11-05-2024 BETA HCG QUANT TUMOR MARKER <1 Normal 0-3 [facility] Comment on above: Order Comment: Speci men Type: BLOOD SPECIMENOrdering Facility: [facility] Address: [address] [place] [address] Result Comment: INTE RPRETIVE INFORMATION: Beta hCG, Serum Quantitation Tumor MarkerHuman chorionic gonadotropin (hCG) is a valuable aid in themanagement of patients with trophoblastic tumors, nonseminomatoustesticular tumors and seminomas when used in conjunction withinformation available from the clinical evaluation and otherdiagnostic procedures. Increased serum HCG concentrations havealso been observed in melanoma, carcinomas of the breast,gastrointestinal tract, lung, and ovaries, and in benignconditions, including cirrhosis, duodenal ulcer, and inflammatorybowel disease. This result cannot be interpreted as absoluteevidence of the presence or absence of malignant disease. Thisresult is not interpretable as a tumor marker in females.The combination of the specific monoclonal antibodies used in theRoche Beta HCG electrochemiluminescent immunoassay recognize theholo-hormone, nicked forms of hCG, the beta-core fragment, andthe free beta-subunit. Results obtained with different testmethods or kits cannot be used interchangeably. Although thisassay is FDA cleared for use in the detection of , it isnot labeled for use as a tumor marker.Access complete set of age- and/or gender-specific referenceintervals for this test in the [facility] Test Directory([facility]).This test was developed and its performance characteristicsdetermined by [facility]. It has not been cleared orapproved by the [place] Food and Drug Administration. This test wasperformed in a CLIA certified laboratory and is intended forclinical purposes.Performed By: [facility] [place], [place] [address]Lublrubaig Director: Matt Rodriguez MD, PhDCLIA Number: [id number] Performed By: #### B HCG ####MELotour.comIA [id number] [place] [address] CNOVon 10-07-2024 CNOV Normal [facility] CNPTOUTREACHon 10-07-2024 CNPTOUTREACH Normal [facility] UA DIP, URINE (POC)on 2023 BILIRUBIN UA (POCT) Negative Negative [facility] CLARITY UA (POCT) Clear [facility] COLOR UA (POCT) Yellow [facility] GLUCOSE UA (POCT) 500 mg/dL Abnormal Negative [facility] Hemoglobin Ql (U) Trace-intact Abnormal Negative [facility] Interpretation and review of laboratory results Abnormal [facility] KETONE UA (POCT) Negative Negative mg/dL [facility] LEUKOCYTES UA (POCT) Trace Abnormal Negative [facility] NITRITE UA (POCT) Negative Negative [facility] PH UA (POCT) 6.0 4.5 - 8.0 [facility] Protein Ql (U) >=300 Abnormal Negative mg/dL [facility] SPECIFIC GRAVITY UA (POCT) 1.025 1.005 - 1.030 [facility] UROBILINOGEN UA (POCT) 0.2 Alvina l E.U./dL [facility] Location:[facility], [address] [place] [address], [address] [place] [address] POINT OF CARE [facility] AFP SerPl-mCncon 09-09-2024 AFP [Mass/Vol] 2.38 ng/mL Normal <9.00 [facility] Comment on above: Order Comment: Speci men Type: BLOOD SPECIMENOrdering Facility: [facility] Address: [address] [place] [address] Result Comment: The Alpha-Fetoprotein test was performed using the Sh[employer]ell [employer] DxI immunoenzymatic assay. Results obtained with different assay methods or kits cannot be used interchangeably. Performed By: #### 1 834-1 ####[facility] LABCLIA [id number] [place] [address] [place] BETA HCG QUANT TUMOR MARKERo n 09-09-2024 BETA HCG QUANT TUMOR MARKER <1 Normal 0-3 [facility] Comment on above: Order Comment: Speci men Type: BLOOD SPECIMENOrdering Facility: [facility] Address: [address] [id number] Result Comment: INTE RPRETIVE INFORMATION: Beta hCG, Serum Quantitation Tumor MarkerHuman chorionic gonadotropin (hCG) is a valuable aid in themanagement of patients with trophoblastic tumors, nonseminomatoustesticular tumors and seminomas when used in conjunction withinformation available from the clinical evaluation and otherdiagnostic procedures. Increased serum HCG concentrations havealso been observed in melanoma, carcinomas of the breast,gastrointestinal tract, lung, and ovaries, and in benignconditions, including cirrhosis, duodenal ulcer, and inflammatorybowel disease. This result cannot be interpreted as absoluteevidence of the presence or absence of malignant disease. Thisresult is not interpretable as a tumor marker in females.The combination of the specific monoclonal antibodies used in theRoche Beta HCG electrochemiluminescent immunoassay recognize theholo-hormone, nicked forms of hCG, the beta-core fragment, andthe free beta-subunit. Results obtained with different testmethods or kits cannot be used interchangeably. Although thisassay is FDA cleared for use in the detection of , it isnot labeled for use as a tumor marker.Access complete set of age- and/or gender-specific referenceintervals for this test in the [facility] Test Directory([facility]).This test was developed and its performance characteristicsdetermined by [facility]. It has not been cleared orapproved by the [place] Food and Drug Administration. This test wasperformed in a CLIA certified laboratory and is intended forclinical purposes.Performed By: [facility] [place], [place] [address]Tqlhaaagob Director: Matt Rodriguez MD, PhDCLIA Number: [id number] Performed By: #### B HCG ####[facility] LABORATORIESIA [id number] [place] [address] Basic metabolic 2000 panelon 09-09-2024 Anion gap [Moles/Vol] 13 mmol/L Normal 8-15 [facility] Comment on above: Order Comment: Speci men Type: BLOOD SPECIMENOrdering Facility: [facility] Address: [address] [id number] Performed By: #### 2 4321-2 ####[facility]ENTERWDCLIA [id number] [place] [address] [place] Calcium [Mass/Vol] 10.4 mg/dL High 8.5-10.2 [facility] Comment on above: Order Comment: Speci men Type: BLOOD SPECIMENOrdering Facility: [facility] Address: [address] [place] [address] Performed By: #### 2 4321-2 ####[facility] CITYWDCLIA [id number] [place] [address] [place] Chloride [Moles/Vol] 101 mmol/L Normal 98-107 [facility] Comment on above: Order Comment: Speci men Type: BLOOD SPECIMENOrdering Facility: [facility] Address: [address] [place] [address] Performed By: #### 2 4321-2 ####[facility] HOSPITALLIA [id number] [place] [address] [place] CO2 [Moles/Vol] 23 mmol/L Normal 22-30 [facility] Comment on above: Order Comment: Speci men Type: BLOOD SPECIMENOrdering Facility: [facility] Address: [address] [place] [address] Performed By: #### 2 4321-2 ####[facility] CITYWNCLIA [id number] [place] [address] [place] Creatinine [Mass/Vol] 2.67 mg/dL High 0.73-1.22 [facility] Comment on above: Order Comment: Speci men Type: BLOOD SPECIMENOrdering Facility: [facility] Address: [address] [place] [address] Performed By: #### 2 4321-2 ####[facility]ITALNCLIA [id number] [place] [address] [place] Creatinine and Glomerular filtration rate.predicted panel (S/P/Bld) 31 mL/min/1.73m??? Low >=60 [facility] Comment on above: Order Comment: Ellen hatch Type: BLOOD SPECIMENOrdering Facility: [facility] Address: [address] [place] [address] Result Comment: Elba mated Glomerular Filtration Rate (eGFR) is calculated using the 2020 CKD-EPI creatinine equation. This equation utilizes serum creatinine, sex, and age as parameters. The creatinine assay has traceable calibration to isotope dilution-mass spectrometry. Refer to KDIGO guidelines for clinical interpretation. In patients with unstable renal function, e.g. those with acute kidney injury, the eGFR may not accurately reflect actual GFR. Performed By: #### 2 4321-2 ####[facility] [id number] [place] [address] [place] Glucose [Mass/Vol] 110 mg/dL High 74-99 [facility] Comment on above: Order Comment: Ellen hatch Type: BLOOD SPECIMENOrdering Facility: [facility] Address: [address] [place] [address] Result Comment: The [place] [employer] (ADA) provides guidance for cutoff values for fasting glucose and random glucose. The ADA defines fasting as no caloric intake for at least 8 hours. Fasting plasma glucose results between 100 to 125 mg/dL indicate increased risk for diabetes (prediabetes).Fasting plasma glucose results greater than or equal to 126 mg/dL meet the criteria for diagnosis of diabetes. In the absence of unequivocal hyperglycemia, results should be confirmed by repeat testing. In a patient with classic symptoms of hyperglycemia or hyperglycemic crisis, random plasma glucose results greater than or equal to 200 mg/dL meet the criteria for diagnosis of diabetes.Reference: Standards of Medical Care in Diabetes 2016, [place] [employer]. Diabetes Care. 2016.39(Suppl 1). Performed By: #### 2 4321-2 ####[facility] [id number] [place] [address] [place] Potassium [Moles/Vol] 3.6 mmol/L Low 3.7-5.1 [facility] Comment on above: Order Comment: Speci men Type: BLOOD SPECIMENOrdering Facility: [facility] Address: [address] [place], [place] [address] Performed By: #### 2 4321-2 ####[facility] AZRAPEERLESSNCSELENA [id number] [place] [address] [place] Sodium [Moles/Vol] 137 mmol/L Normal 136-144 [facility] Comment on above: Order Comment: Speci men Type: BLOOD SPECIMENOrdering Facility: [facility] Address: [address] [place] [address] Performed By: #### 2 4321-2 ####[facility] AZRAOWATONNA CLINICHuyen [id number] [place] [address] [place] Urea nitrogen [Mass/Vol] 40 mg/dL High 9-24 [facility] Comment on above: Order Comment: Speci men Type: BLOOD SPECIMENOrdering Facility: [facility] Address: [address] [place] [address] Performed By: #### 2 4321-2 ####[facility] AZRADAVIESS COMMUNITY HOSPITALLIA [id number] [place] [address] [place] CBC W/Diff, Automatedon 09- Absolute Lymph 0.48 X10 3/uL Low 0.83-4.51 [facility] Comment on above: Order Comment: Order Date: 12/02/24 Order Info: [id number] - CMP Order Info: [id number] - LIPID Performed By: #### L 500.4100, L100.0100, L501.9985, L502.0250, L500.4050, L506.1000 #### [facility] [address] [place], [address] Absolute Neut 3.9 X10 3/uL Normal 2.0-7.7 [facility] Comment on above: Order Comment: Order Date: 12/02/24 Order Info: [id number] - CMP Order Info: [id number] - LIPID Performed By: #### L 500.4100, L100.0100, L501.9985, L502.0250, L500.4050, L506.1000 #### [facility] [address] [place], [address] Basophils/100 WBC (Bld) 0.8 % Normal 0-1 [facility] Comment on above: Order Comment: Order Date: 12/02/24 Order Info: [id number] - CMP Order Info: [id number] - LIPID Performed By: #### L 500.4100, L100.0100, L501.9985, L502.0250, L500.4050, L506.1000 #### [facility] [address] [place], [address] Eosinophils/100 WBC (Bld) 4.1 % Normal 0-5 [facility] Comment on above: Order Comment: Order Date: 12/02/24 Order Info: [id number] - CMP Order Info: [id number] - LIPID Performed By: #### L 500.4100, L100.0100, L501.9985, L502.0250, L500.4050, L506.1000 #### [facility] [address] [place], [address] Erythrocyte distribution width (RBC) [Ratio] 13.7 % Normal 11.6-14.6 [facility] Comment on above: Order Comment: Order Date: 12/02/24 Order Info: [id number] - CMP Order Info: [id number] - LIPID Performed By: #### L 500.4100, L100.0100, L501.9985, L502.0250, L500.4050, L506.1000 #### [facility] [address] [place], [address] Hematocrit (Bld) [Volume fraction] 47.8 % Normal 40-54 [facility] Comment on above: Order Comment: Order Date: 12/02/24 Order Info: [id number] - CMP Order Info: [id number] - LIPID Performed By: #### L 500.4100, L100.0100, L501.9985, L502.0250, L500.4050, L506.1000 #### [facility] [address] [place], [address] Hemoglobin (Bld) [Mass/Vol] 15.5 g/dL Normal 13.0-16.5 [facility] Comment on above: Order Comment: Order Date: 12/02/24 Order Info: [id number] - CMP Order Info: [id number] - LIPID Performed By: #### L 500.4100, L100.0100, L501.9985, L502.0250, L500.4050, L506.1000 #### [facility] [address] [place], [address] IG% 0.600 Normal 0.0-0.9 [facility] Comment on above: Order Comment: Order Date: 12/02/24 Order Info: [id number] - CMP Order Info: [id number] - LIPID Result Comment: IG% - Immature Granulocytes (promyelocytes, myelocytes and metamyelocytes) > 1% indicates that a LEFT SHIFT is Present. Performed By: #### L 500.4100, L100.0100, L501.9985, L502.0250, L500.4050, L506.1000 #### [facility] [address] [place], [address] Lymphocytes/100 WBC (Bld) 9.3 % Low 19-41 [facility] Comment on above: Order Comment: Order Date: 12/02/24 Order Info: 0786-1 - CMP Order Info: [id number] - LIPID Performed By: #### L 500.4100, L100.0100, L501.9985, L502.0250, L500.4050, L506.1000 #### [facility] [address] [place], [address] MCH (RBC) [Entitic mass] 29.0 pg Normal 27.0-32.0 [facility] Comment on above: Order Comment: Order Date: 12/02/24 Order Info: [id number] - CMP Order Info: [id number] - LIPID Performed By: #### L 500.4100, L100.0100, L501.9985, L502.0250, L500.4050, L506.1000 #### [facility] [address] [place], [address] MCHC (RBC) [Mass/Vol] 32.4 g/dL Normal 32-36 [facility] Comment on above: Order Comment: Order Date: 12/02/24 Order Info: [id number] - CMP Order Info: [id number] - LIPID Performed By: #### L 500.4100, L100.0100, L501.9985, L502.0250, L500.4050, L506.1000 #### [facility] [address] [place], [address] MCV (RBC) [Entitic vol] 89.3 fL Normal 80-94 [facility] Comment on above: Order Comment: Order Date: 12/02/24 Order Info: [id number] - CMP Order Info: [id number] - LIPID Performed By: #### L 500.4100, L100.0100, L501.9985, L502.0250, L500.4050, L506.1000 #### [facility] [address] [place], [address] Monocytes/100 WBC (Bld) 10.1 % High 0-10 [facility] Comment on above: Order Comment: Order Date: 12/02/24 Order Info: [id number] - CMP Order Info: [id number] - LIPID Performed By: #### L 500.4100, L100.0100, L501.9985, L502.0250, L500.4050, L506.1000 #### [facility] [address] [place], [address] Neutrophils/100 WBC (Bld) 75.1 % High 47-70 [facility] Comment on above: Order Comment: Order Date: 12/02/24 Order Info: [id number] - CMP Order Info: [id number] - LIPID Performed By: #### L 500.4100, L100.0100, L501.9985, L502.0250, L500.4050, L506.1000 #### [facility] [address] [place], [address] Nucleated RBC (Bld) [#/Vol] 0 10*3/uL Normal 0-5 [facility] Comment on above: Order Comment: Order Date: 12/02/24 Order Info: [id number] - CMP Order Info: [id number] - LIPID Performed By: #### L 500.4100, L100.0100, L501.9985, L502.0250, L500.4050, L506.1000 #### [facility] [address] [place], [address] Platelet mean volume (Bld) [Entitic vol] 9.0 fL Normal 6.2-12.0 [facility] Comment on above: Order Comment: Order Date: 12/02/24 Order Info: [id number] - CMP Order Info: [id number] - LIPID Performed By: #### L 500.4100, L100.0100, L501.9985, L502.0250, L500.4050, L506.1000 #### [facility] [address] [place], [address] Platelets (Bld) [#/Vol] 217 10*3/uL Normal 150-450 [facility] Comment on above: Order Comment: Order Date: 12/02/24 Order Info: [id number] - CMP Order Info: [id number] - LIPID Performed By: #### L 500.4100, L100.0100, L501.9985, L502.0250, L500.4050, L506.1000 #### [facility] [address] [place], [address] RBC (Bld) [#/Vol] 5.35 10*6/uL Normal 4.6-6.2 [facility] Comment on above: Order Comment: Order Date: 12/02/24 Order Info: 0786-1 - CMP Order Info: [id number] - LIPID Performed By: #### L 500.4100, L100.0100, L501.9985, L502.0250, L500.4050, L506.1000 #### [facility] [address] [place], [address] RDW SD 43.9 fl Normal 35.1-43.9 [facility] Comment on above: Order Comment: Order Date: 12/02/24 Order Info: 0786-1 - CMP Order Info: [id number] - LIPID Performed By: #### L 500.4100, L100.0100, L501.9985, L502.0250, L500.4050, L506.1000 #### [facility] [address] [place], [address] WBC (Bld) [#/Vol] 5.2 10*3/uL Normal 4.4-11.0 [facility] Comment on above: Order Comment: Order Date: 12/02/24 Order Info: 0786-1 - CMP Order Info: [id number] - LIPID Performed By: #### L 500.4100, L100.0100, L501.9985, L502.0250, L500.4050, L506.1000 #### [facility] [address] [place], [address] Comprehensive Metabolic Prof [facility] 08-05-2024 Albumin [Mass/Vol] 3.5 g/dL Normal 3.2-5.0 [facility] Comment on above: Order Comment: Order Date: 12/02/24 Order Info: 0786-1 - CMP Order Info: [id number] - LIPID Performed By: #### L 500.4100, L100.0100, L501.9985, L502.0250, L500.4050, L506.1000 #### [facility] [address] [place], [address] Albumin/Globulin [Mass ratio] 0.9 {ratio} Normal 0.9-2.4 [facility] Comment on above: Order Comment: Order Date: 12/02/24 Order Info: [id number] - CMP Order Info: [id number] - LIPID Performed By: #### L 500.4100, L100.0100, L501.9985, L502.0250, L500.4050, L506.1000 #### [facility] [address] [place], [address] ALK P 172 U/L High 45-117 [facility] Comment on above: Order Comment: Order Date: 12/02/24 Order Info: 0786-1 - CMP Order Info: [id number] - LIPID Performed By: #### L 500.4100, L100.0100, L501.9985, L502.0250, L500.4050, L506.1000 #### [facility] [address] [place], [address] ALT [Catalytic activity/Vol] 38 U/L Normal 16-61 [facility] Comment on above: Order Comment: Order Date: 12/02/24 Order Info: [id number] - CMP Order Info: [id number] - LIPID Performed By: #### L 500.4100, L100.0100, L501.9985, L502.0250, L500.4050, L506.1000 #### [facility] [address] [place], [address] AST [Catalytic activity/Vol] 33 U/L Normal 15-37 [facility] Comment on above: Order Comment: Order Date: 12/02/24 Order Info: [id number] - CMP Order Info: [id number] - LIPID Performed By: #### L 500.4100, L100.0100, L501.9985, L502.0250, L500.4050, L506.1000 #### [facility] [address] [place], [address] Bilirubin [Mass/Vol] 0.20 mg/dL Normal 0.20-1.00 [facility] Comment on above: Order Comment: Order Date: 12/02/24 Order Info: 0786-1 - CMP Order Info: [id number] - LIPID Result Comment: For patients on eltrombopag therapy, use of Dimension Oolitic TBIL is not recommended. Performed By: #### L 500.4100, L100.0100, L501.9985, L502.0250, L500.4050, L506.1000 #### [facility] [address] [place], [address] BUN/CRE 13.9 RATIO Normal 10-20 [facility] Comment on above: Order Comment: Order Date: 12/02/24 Order Info: 0786-1 - CMP Order Info: [id number] - LIPID Performed By: #### L 500.4100, L100.0100, L501.9985, L502.0250, L500.4050, L506.1000 #### [facility] [address] [place], [address] CA,Total 10.3 mg/dL High 8.5-10.1 [facility] Comment on above: Order Comment: Order Date: 12/02/24 Order Info: 0786-1 - CMP Order Info: [id number] - LIPID Performed By: #### L 500.4100, L100.0100, L501.9985, L502.0250, L500.4050, L506.1000 #### [facility] [address] [place], [address] Chloride [Moles/Vol] 105 mmol/L Normal 98-107 [facility] Comment on above: Order Comment: Order Date: 12/02/24 Order Info: 0786-1 - CMP Order Info: [id number] - LIPID Performed By: #### L 500.4100, L100.0100, L501.9985, L502.0250, L500.4050, L506.1000 #### [facility] [address] [place], [address] CO2 [Moles/Vol] 24.0 mmol/L Normal 21.0-32.0 [facility] Comment on above: Order Comment: Order Date: 12/02/24 Order Info: 0786-1 - [facility] Order Info: [id number] - LIPID Performed By: #### L 500.4100, L100.0100, L501.9985, L502.0250, L500.4050, L506.1000 #### [facility] [address] [place], [address] Creatinine [Mass/Vol] 2.52 mg/dL High 0.70-1.30 [facility] Comment on above: Order Comment: Order Date: 12/02/24 Order Info: 0786- - CMP Order Info: [id number] - LIPID Result Comment: The validity of the calculated GFR GFRAA in patients over 70 years has not been determined. Clinical correlation is essential. Performed By: #### L 500.4100, L100.0100, L501.9985, L502.0250, L500.4050, L506.1000 #### [facility] [address] [place], [address] EST GFR - AA 38 mL/min Low >60 [facility] Comment on above: Order Comment: Order Date: 12/02/24 Order Info: 0786- - [facility] Order Info: [id number] - LIPID Result Comment: Afri can [place] GFR Calc Performed By: #### L 500.4100, L100.0100, L501.9985, L502.0250, L500.4050, L506.1000 #### [facility] [address] [place], [address] GAP 8 Normal 5-15 [facility] Comment on above: Order Comment: Order Date: 12/02/24 Order Info: 0786-1 - CMP Order Info: [id number] - LIPID Performed By: #### L 500.4100, L100.0100, L501.9985, L502.0250, L500.4050, L506.1000 #### [facility] [address] [place], [address] GFR/1.73 sq M.predicted among non-blacks MDRD (S/P/Bld) [Vol rate/Area] 31 mL/min/{1.73_m2} Low >60 [facility] Comment on above: Order Comment: Order Date: 12/02/24 Order Info: 0786- - CMP Order Info: [id number] - LIPID Result Comment: Non- GFR Calc Performed By: #### L 500.4100, L100.0100, L501.9985, L502.0250, L500.4050, L506.1000 #### [facility] [address] [place], [address] Globulin (S) [Mass/Vol] 4.0 g/dL Normal 2.2-4.2 [facility] Comment on above: Order Comment: Order Date: 12/02/24 Order Info: 0786-1 - CMP Order Info: [id number] - LIPID Performed By: #### L 500.4100, L100.0100, L501.9985, L502.0250, L500.4050, L506.1000 #### [facility] [address] [place], [address] Glucose [Mass/Vol] 90 mg/dL Normal 74-106 [facility] Comment on above: Order Comment: Order Date: 12/02/24 Order Info: 0786-1 - CMP Order Info: [id number] - LIPID Performed By: #### L 500.4100, L100.0100, L501.9985, L502.0250, L500.4050, L506.1000 #### [facility] [address] [place], [address] Potassium [Moles/Vol] 3.6 mmol/L Normal 3.5-5.1 [facility] Comment on above: Order Comment: Order Date: 12/02/24 Order Info: 0786-1 - CMP Order Info: [id number] - LIPID Performed By: #### L 500.4100, L100.0100, L501.9985, L502.0250, L500.4050, L506.1000 #### [facility] [address] [place], [address] Sodium [Moles/Vol] 137 mmol/L Normal 136-145 [facility] Comment on above: Order Comment: Order Date: 12/02/24 Order Info: 0786-1 - CMP Order Info: [id number] - LIPID Performed By: #### L 500.4100, L100.0100, L501.9985, L502.0250, L500.4050, L506.1000 #### [facility] [address] [place], [address] T PROT 7.5 g/dL Normal 6.4-8.2 [facility] Comment on above: Order Comment: Order Date: 12/02/24 Order Info: 0786-1 - CMP Order Info: [id number] - LIPID Performed By: #### L 500.4100, L100.0100, L501.9985, L502.0250, L500.4050, L506.1000 #### [facility] [address] [place], [address] Urea nitrogen [Mass/Vol] 35 mg/dL High 7-18 [facility] Comment on above: Order Comment: Order Date: 12/02/24 Order Info: 0786-1 - CMP Order Info: [id number] - LIPID Performed By: #### L 500.4100, L100.0100, L501.9985, L502.0250, L500.4050, L506.1000 #### [facility] [address] [place], [address] Hemoglobin A1con 08-05-2024 HbA1c (Bld) [Mass fraction] 5.6 % Normal 3.8-5.6 [facility] Comment on above: Order Comment: Order Date: 12/02/24 Order Info: 0786-1 - CMP Order Info: [id number] - LIPID Result Comment: Norm al < 5.7 % Prediabetic 5.7 - 6.4 % Diabetic >or= 6.5 % Please note range changes. Performed By: #### L 500.4100, L100.0100, L501.9985, L502.0250, L500.4050, L506.1000 #### [facility] [address] [place], [place], [address] Lipid Profileon 08-05-2024 Cholesterol [Mass/Vol] 170 mg/dL Normal 200 [facility] Comment on above: Order Comment: Order Date: 12/02/24 Order Info: 0786-1 - [facility] Order Info: [id number] - LIPID Result Comment: <200 mg/dL Desirable 200-240 mg/dL Borderline >240 mg/dL High Risk Performed By: #### L 500.4100, L100.0100, L501.9985, L502.0250, L500.4050, L506.1000 #### [facility] [address] [place], [address] Cholesterol in HDL [Mass/Vol] 48 mg/dL Normal [facility] Comment on above: Order Comment: Order Date: 12/02/24 Order Info: 0786-1 - [facility] Order Info: [id number] - LIPID Result Comment: The drugs N-Acetylcysteine and Metamizole may falsely depress this assay. Reference Range HDL <40 mg/dL Low HDL Cholesterol HDL >or= 60 mg/dL High HDL Cholesterol Performed By: #### L 500.4100, L100.0100, L501.9985, L502.0250, L500.4050, L506.1000 #### [facility] [address] [place], [address] Cholesterol in LDL [Mass/Vol] 73 mg/dL Normal 0-130 [facility] Comment on above: Order Comment: Order Date: 12/02/24 Order Info: 0786-1 - CMP Order Info: [id number] - LIPID Performed By: #### L 500.4100, L100.0100, L501.9985, L502.0250, L500.4050, L506.1000 #### [facility] [address] [place], [address] Cholesterol in VLDL [Mass/Vol] 49 mg/dL High 5-40 [facility] Comment on above: Order Comment: Order Date: 12/02/24 Order Info: 0786-1 - CMP Order Info: [id number] - LIPID Performed By: #### L 500.4100, L100.0100, L501.9985, L502.0250, L500.4050, L506.1000 #### [facility] [address] [place], [address] Triglyceride [Mass/Vol] 245 mg/dL High [facility] Comment on above: Order Comment: Order Date: 12/02/24 Order Info: 0786-1 - CMP Order Info: [id number] - LIPID Result Comment: The drugs N-Acetylcysteine and Metamizole may falsely depress this assay. Serum Triglycerides Reference Interval Normal <150 mg/dL Borderline high 150 - 199 mg/dL High 200 - 499 mg/dL Very High > or = 500 mg/dL Performed By: #### L 500.4100, L100.0100, L501.9985, L502.0250, L500.4050, L506.1000 #### [facility] [address] [place], [address] Microalb:Creat Ratio,Random URon 08-05-2024 MALB:CRE 4540.4 mg/g CRE High <30 mg/g CRE [facility] Comment on above: Order Comment: Order Date: 12/02/24 Order Info: 0786-1 - CMP Order Info: [id number] - LIPID Performed By: #### L 500.4100, L100.0100, L501.9985, L502.0250, L500.4050, L506.1000 #### [facility] [address] [place], [address] MICROALBUMIN,UR 1630.0 mg/L Normal NO RANGE EST. [facility] Comment on above: Order Comment: Order Date: 12/02/24 Order Info: 0786-1 - CMP Order Info: [id number] - LIPID Performed By: #### L 500.4100, L100.0100, L501.9985, L502.0250, L500.4050, L506.1000 #### [facility] [address] [place], [address] Phosphoruson 08-05-2024 Phosphate [Mass/Vol] 4.0 mg/dL Normal 2.5-4.9 [facility] Comment on above: Order Comment: Order Date: 12/02/24 Order Info: 0786-1 - CMP Order Info: [id number] - LIPID Performed By: #### L 500.4100, L100.0100, L501.9985, L502.0250, L500.4050, L506.1000 #### [facility] [address] [place], [address] Protein+Creatinine Ratio,Uri neon 08-05-2024 PROT:CRE RATIO 5836 mg/g CRE High 0-200 [facility] Comment on above: Order Comment: Order Date: 12/02/24 Order Info: 0786-1 - CMP Order Info: [id number] - LIPID Performed By: #### L 500.4100, L100.0100, L501.9985, L502.0250, L500.4050, L506.1000 #### [facility] [address] [place], [address] Protein (U) [Mass/Vol] 209.5 mg/dL High <11.9 [facility] Comment on above: Order Comment: Order Date: 12/02/24 Order Info: 0786-1 - CMP Order Info: [id number] - LIPID Performed By: #### L 500.4100, L100.0100, L501.9985, L502.0250, L500.4050, L506.1000 #### [facility] [address] [place], [address] UR CREAT 35.90 mg/dL Normal NO RANGE EST. [facility] Comment on above: Order Comment: Order Date: 12/02/24 Order Info: 0786-1 - CMP Order Info: [id number] - LIPID Performed By: #### L 500.4100, L100.0100, L501.9985, L502.0250, L500.4050, L506.1000 #### [facility] [address] [place], [address] Urinalysis, Completeon 08-05 BACTERIA 1+ /hpf Normal None Seen [facility] Comment on above: Order Comment: Order Date: 12/02/24 Order Info: 0786-1 - CMP Order Info: [id number] - LIPID Performed By: #### L 500.4100, L100.0100, L501.9985, L502.0250, L500.4050, L506.1000 #### [facility] [address] [place], [address] EPI,SQUAMOUS 0-5 SEEN Normal 0-5 [facility] Comment on above: Order Comment: Order Date: 12/02/24 Order Info: 0786-1 - CMP Order Info: [id number] - LIPID Performed By: #### L 500.4100, L100.0100, L501.9985, L502.0250, L500.4050, L506.1000 #### [facility] [address] [place], [address] RBC 0-5 SEEN Normal 0-5 [facility] Comment on above: Order Comment: Order Date: 12/02/24 Order Info: 0786-1 - CMP Order Info: [id number] - LIPID Performed By: #### L 500.4100, L100.0100, L501.9985, L502.0250, L500.4050, L506.1000 #### [facility] [address] [place], [address] WBC 0-5 SEEN Normal 0-5 [facility] Comment on above: Order Comment: Order Date: 12/02/24 Order Info: 0786-1 - CMP Order Info: [id number] - LIPID Performed By: #### L 500.4100, L100.0100, L501.9985, L502.0250, L500.4050, L506.1000 #### [facility] [address] [place], [address] Mucus Ql (Urine sed) 0 SEEN Normal [facility] Comment on above: Order Comment: Order Date: 12/02/24 Order Info: 0786-1 - CMP Order Info: [id number] - LIPID Performed By: #### L 500.4100, L100.0100, L501.9985, L502.0250, L500.4050, L506.1000 #### [facility] [address] [place], [address] Vitamin D,25 Hydroxyon 08-05 Vitamin D 25-OH 33.6 ng/mL Normal [facility] Comment on above: Order Comment: Order Date: 12/02/24 Order Info: 0786-1 - CMP Order Info: [id number] - LIPID Result Comment: Linda min D 25(OH) Status Range Deficiency <20 ng/mL (50nmol/L) Insufficiency 20 - 30 ng/mL (50 - 75 nmol/L) Sufficiency 30 - 100 ng/mL (75 - 250 nmol/L) Toxicity >100 ng/mL (>250 nmol/L) Performed By: #### L 500.4100, L100.0100, L501.9985, L502.0250, L500.4050, L506.1000 #### [facility] [address] [place], [address] Renal Profileon 07-14-2024 Albumin [Mass/Vol] 3.5 g/dL Normal 3.2-5.0 [facility] Comment on above: Performed By: #### L 500.3600 #### [facility] [address] [place], [address] BUN/CRE 15.2 RATIO Normal 10-20 [facility] Comment on above: Performed By: #### L 500.3600 #### [facility] [address] [place], [address] CA,Total 9.9 mg/dL Normal 8.5-10.1 [facility] Comment on above: Performed By: #### L 500.3600 #### [facility] [address] [place], [address] Chloride [Moles/Vol] 105 mmol/L Normal 98-107 [facility] Comment on above: Performed By: #### L 500.3600 #### [facility] [address] [place], [address] CO2 [Moles/Vol] 26.0 mmol/L Normal 21.0-32.0 [facility] Comment on above: Performed By: #### L 500.3600 #### [facility] [address] [place], [address] Creatinine [Mass/Vol] 2.57 mg/dL High 0.70-1.30 [facility] Comment on above: Result Comment: The validity of the calculated GFR GFRAA in patients over 70 years has not been determined. Clinical correlation is essential. Performed By: #### L 500.3600 #### [facility] [address] [place], [address] EST GFR - AA 37 mL/min Low >60 [facility] Comment on above: Result Comment: Afri can Iraqi GFR Calc Performed By: #### L 500.3600 #### [facility] [address] [place], [address] GFR/1.73 sq M.predicted among non-blacks MDRD (S/P/Bld) [Vol rate/Area] 31 mL/min/{1.73_m2} Low >60 [facility] Comment on above: Result Comment: Non- GFR Calc Performed By: #### L 500.3600 #### [facility] [address] [place], [address] Glucose [Mass/Vol] 93 mg/dL Normal 74-106 [facility] Comment on above: Performed By: #### L 500.3600 #### [facility] [address] [place], [address] Phosphate [Mass/Vol] 4.1 mg/dL Normal 2.5-4.9 [facility] Comment on above: Performed By: #### L 500.3600 #### [facility] [address] [place], [address] Potassium [Moles/Vol] 3.7 mmol/L Normal 3.5-5.1 [facility] Comment on above: Performed By: #### L 500.3600 #### [facility] [address] [place], [address] Sodium [Moles/Vol] 138 mmol/L Normal 136-145 [facility] Comment on above: Performed By: #### L 500.3600 #### [facility] [address] [place], [address] Urea nitrogen [Mass/Vol] 39 mg/dL High 7-18 [facility] Comment on above: Performed By: #### L 500.3600 #### [facility] [address] [place], [address] CNOVon 07-12-2024 CNOV Normal [facility] CNOVSPon 07-08-2024 CNOVSP Normal [facility] CNOVon 07-06-2024 CNOV Normal [facility] CNPTOUTREACHon 07-06-2024 CNPTOUTREACH Normal [facility] URINALYSIS, REFLEX MICROSCOP ICon 07-06-2024 Bilirubin Ql (U) Negative Negative [facility] Clarity (Unsp spec) Clear Clear [facility] Color (U) Yellow Yellow [facility] Glucose Test strip (U) [Mass/Vol] 3+ Abnormal Negative [facility] Hemoglobin Ql (U) Negative Negative [facility] Interpretation and review of laboratory results Abnormal [facility] Ketones Ql (U) Negative Negative [facility] Leukocyte esterase Test strip Ql (U) 1+ Abnormal Negative [facility] Nitrite Ql (U) Negative Negative [facility] pH (U) 6.0 [pH] NINF - 8.5 [facility] Protein (U) [Mass/Vol] 3+ Abnormal Negative [facility] Specific gravity (U) [Rel density] 1.013 1.005 - 1.030 [facility] Urobilinogen Ql (U) 0.2 EU/dL 0.2-1.0 EU/dL [facility] This test was devlanio ped and its performance characteristics determined by [facility]'s Jessica [facility] Pathology and Laboratory Medicine [place] ([facility]). It has not been cleared or approved by the FDA. [facility] is regulated under CLIA as qualified to perform high-complexity testing. This test is used for clinical purposes. It should not be regarded as investigational or for research. [facility] Bilirubin Ql (U) Negative Normal Negative [facility] Comment on above: Order Comment: Speci men Type: URINE SPECIMENOrdering Facility: [facility] Address: [address] [place] [address] Performed By: #### L [id number] ####[facility] LABCLIA [id number] [place] [address] [place] Clarity (Unsp spec) Clear Normal Clear [facility] Comment on above: Order Comment: Speci men Type: URINE SPECIMENOrdering Facility: [facility] Address: [address] [place] [address] Performed By: #### L [id number] ####[facility] LABCLIA [id number] [place] [address] [place] Color (U) Yellow Normal Yellow [facility] Comment on above: Order Comment: Speci men Type: URINE SPECIMENOrdering Facility: [facility] Address: [address] [place] [address] Performed By: #### L [id number] ####[facility] LABCLIA [id number] [place] [address] [place] Glucose Test strip (U) [Mass/Vol] 3+ Abnormal Negative [facility] Comment on above: Order Comment: Speci men Type: URINE SPECIMENOrdering Facility: [facility] Address: [address] [place] [address] Performed By: #### L [id number] ####[facility] LABCLIA [id number] [place] [address] [place] Hemoglobin Ql (U) Negative Normal Negative [facility] Comment on above: Order Comment: Speci men Type: URINE SPECIMENOrdering Facility: [facility] Address: [address] [place] [address] Performed By: #### L [id number] ####[facility] LABCLIA [id number] [place] [address] [place] Ketones Ql (U) Negative Normal Negative [facility] Comment on above: Order Comment: Speci men Type: URINE SPECIMENOrdering Facility: [facility] Address: [address] [place] [address] Performed By: #### L [id number] ####[facility] LABCLIA [id number] [place] [address] [place] Leukocyte esterase Test strip Ql (U) 1+ Abnormal Negative [facility] Comment on above: Order Comment: Speci men Type: URINE SPECIMENOrdering Facility: [facility] Address: [address] [place] [address] Performed By: #### L [id number] ####[facility] LABCLIA [id number] [place] [address] [place] Nitrite Ql (U) Negative Normal Negative [facility] Comment on above: Order Comment: Speci men Type: URINE SPECIMENOrdering Facility: [facility] Address: [address] [place] [address] Performed By: #### L [id number] ####[facility] LABIA [id number] [place] [address] [place] pH (U) 6.0 [pH] Normal <8.5 [facility] Comment on above: Order Comment: Speci men Type: URINE SPECIMENOrdering Facility: [facility] Address: [address] [place] [address] Performed By: #### L [id number] ####[facility] LABCLIA [id number] [place] [address] [place] Protein (U) [Mass/Vol] 3+ Abnormal Negative Cl [facility] Comment on above: Order Comment: Speci men Type: URINE SPECIMENOrdering Facility: [facility] Address: [address] [place] [address] Performed By: #### L [id number] ####[facility] LABCLIA [id number] [place] [address] [place] Specific gravity (U) [Rel density] 1.013 Normal 1.005-1.030 [facility] Comment on above: Order Comment: Speci men Type: URINE SPECIMENOrdering Facility: [facility] Address: [address] [place] [address] Performed By: #### L [id number] ####[facility] LABCLIA [id number] [place] [address] [place] Urobilinogen Ql (U) 0.2 EU/dL Normal 0.2-1.0 EU/dL [facility] Comment on above: Order Comment: Speci men Type: URINE SPECIMENOrdering Facility: [facility] Address: [address] [place] [address] Performed By: #### L [id number] ####[facility] LABIA [id number] [place] [address] [place] AFP SerPl-mCncon 07-02-2024 AFP [Mass/Vol] ng/mL Normal <11.0 [facility] Comment on above: Order Comment: Speci men Type: BLOOD SPECIMENOrdering Facility: [facility] Address: [address] [place] [address] Result Comment: Resu lt rechecked.The Alpha-Fetoprotein test was performed using the Siemens ClearPoint Metricsaur XP chemiluminometric immunoassay method. Results obtained with different assay methods or kits cannot be used interchangeably.1.79The Alpha-Fetoprotein test was performed using the Shantell Unicel DxI immunoenzymatic assay. Results obtained with different assay methods or kits cannot be used interchangeably. Performed By: #### 1 834-1 ####[facility] LABIA [id number] [place] [address] [place] BETA HCG QUANT TUMOR MARKERo n 07-02-2024 BETA HCG QUANT TUMOR MARKER <1 Normal 0-3 [facility] Comment on above: Order Comment: Speci men Type: BLOOD SPECIMENOrdering Facility: [facility] Address: [address] [place] [address] Result Comment: INTE RPRETIVE INFORMATION: Beta hCG, Serum Quantitation Tumor MarkerHuman chorionic gonadotropin (hCG) is a valuable aid in themanagement of patients with trophoblastic tumors, nonseminomatoustesticular tumors and seminomas when used in conjunction withinformation available from the clinical evaluation and otherdiagnostic procedures. Increased serum HCG concentrations havealso been observed in melanoma, carcinomas of the breast,gastrointestinal tract, lung, and ovaries, and in benignconditions, including cirrhosis, duodenal ulcer, and inflammatorybowel disease. This result cannot be interpreted as absoluteevidence of the presence or absence of malignant disease. Thisresult is not interpretable as a tumor marker in females.The combination of the specific monoclonal antibodies used in theRoche Beta HCG electrochemiluminescent immunoassay recognize theholo-hormone, nicked forms of hCG, the beta-core fragment, andthe free beta-subunit. Results obtained with different testmethods or kits cannot be used interchangeably. Although thisassay is FDA cleared for use in the detection of , it isnot labeled for use as a tumor marker.Access complete set of age- and/or gender-specific referenceintervals for this test in the [facility] Test Directory([facility]).This test was developed and its performance characteristicsdetermined by [facility]. It has not been cleared orapproved by the [place] Food and Drug Administration. This test wasperformed in a CLIA certified laboratory and is intended forclinical purposes.Performed By: [facility] [place], [place] [address] Director: Matt Rodriguez MD, PhDCLIA Number: [id number] Performed By: #### B HCG ####[facility]ITALIA [id number] [place] [address] Basic metabolic 2000 panelon 07-02-2024 Anion gap [Moles/Vol] 11 mmol/L Normal 8-15 [facility] Comment on above: Order Comment: Speci men Type: BLOOD SPECIMENOrdering Facility: [facility] Address: [address] [place] [address] Performed By: #### 2 4321-2 ####[facility] [id number] [place] [id number] [place] Calcium [Mass/Vol] 10.4 mg/dL High 8.5-10.2 [facility] Comment on above: Order Comment: Speci men Type: BLOOD SPECIMENOrdering Facility: [facility] Address: [address] [place] [address] Performed By: #### 2 432-2 ####[facility] AZRAWNCLIA [id number] [place] [address] [place] Chloride [Moles/Vol] 103 mmol/L Normal 98-107 [facility] Comment on above: Order Comment: Speci men Type: BLOOD SPECIMENOrdering Facility: [facility] Address: [address] [place] [address] Performed By: #### 2 4321-2 ####[facility]IT[facility]IA [id number] [place] [address] [place] CO2 [Moles/Vol] 23 mmol/L Normal 22-30 [facility] Comment on above: Order Comment: Speci men Type: BLOOD SPECIMENOrdering Facility: [facility] Address: [address] [place] [address] Performed By: #### 2 4321-2 ####[facility] [id number] [place] [address] [place] Creatinine [Mass/Vol] 2.32 mg/dL High 0.73-1.22 [facility] Comment on above: Order Comment: Speci men Type: BLOOD SPECIMENOrdering Facility: [facility] Address: [address] [place] [address] Performed By: #### 2 4321-2 ####[facility]ITAL[facility]CLIA [id number] [place] [address] [place] [facility] Creatinine and Glomerular filtration rate.predicted panel (S/P/Bld) 37 mL/min/1.73m??? Low >=60 [facility] Comment on above: Order Comment: Speci men Type: BLOOD SPECIMENOrdering Facility: [facility] Address: [address] [place] [address] Result Comment: Elba mated Glomerular Filtration Rate (eGFR) is calculated using the 2020 CKD-EPI creatinine equation. This equation utilizes serum creatinine, sex, and age as parameters. The creatinine assay has traceable calibration to isotope dilution-mass spectrometry. Refer to KDIGO guidelines for clinical interpretation. In patients with unstable renal function, e.g. those with acute kidney injury, the eGFR may not accurately reflect actual GFR. Performed By: #### 2 4321-2 ####[facility]ITALNCLI [id number] [place] [address] [place] Glucose [Mass/Vol] 94 mg/dL Normal 74-99 [facility] Comment on above: Order Comment: Speci men Type: BLOOD SPECIMENOrdering Facility: [facility] Address: [address] [place], [place] [address] Result Comment: The [place] Diabetes Association (ADA) provides guidance for cutoff values for fasting glucose and random glucose. The ADA defines fasting as no caloric intake for at least 8 hours. Fasting plasma glucose results between 100 to 125 mg/dL indicate increased risk for diabetes (prediabetes).Fasting plasma glucose results greater than or equal to 126 mg/dL meet the criteria for diagnosis of diabetes. In the absence of unequivocal hyperglycemia, results should be confirmed by repeat testing. In a patient with classic symptoms of hyperglycemia or hyperglycemic crisis, random plasma glucose results greater than or equal to 200 mg/dL meet the criteria for diagnosis of diabetes.Reference: Standards of Medical Care in Diabetes 2016, [place] Diabetes Association. Diabetes Care. 2016.39(Suppl 1). Performed By: #### 2 4321-2 ####[facility] HOSPITALNCA [id number] [place] [address] [place] Potassium [Moles/Vol] 4.3 mmol/L Normal 3.7-5.1 [facility] Comment on above: Order Comment: Speci men Type: BLOOD SPECIMENOrdering Facility: [facility] Address: [address] [place] [address] Performed By: #### 2 4321-2 ####[facility]ITALNCA [id number] [place] [address] [place] Sodium [Moles/Vol] 137 mmol/L Normal 136-144 [facility] Comment on above: Order Comment: Speci men Type: BLOOD SPECIMENOrdering Facility: [facility] Address: [address] [place] [address] Performed By: #### 2 4321-2 ####[facility] [place] [id number] [place] [address] [place] Urea nitrogen [Mass/Vol] 35 mg/dL High 08-10 [facility] Comment on above: Order Comment: Speci men Type: BLOOD SPECIMENOrdering Facility: [facility] Address: [address] [place] [address] Performed By: #### 2 4321-2 ####[facility] [place] ECHOLSNCLIHuyen [id number] [place] [address] [place] ABD/PEL WO IVCONon 2023 CT ABD/PEL WO IVCON Normal [facility] CT CHEST WO IVCONon 07-02-20 CT CHEST WO IVCON Normal [facility] CBC W/Diff, Automatedon 04-17 Absolute Lymph 0.53 X10 3/uL Low 0.83-4.51 [facility] Comment on above: Order Comment: Order Date: 12/02/24 Order Info: [id number] - VITD25 Performed By: #### L 500.4100, L100.0100, L501.9985, L502.0250, L500.4050, L506.1000 #### [facility] [address] [place], [address] Absolute Neut 3.3 X10 3/uL Normal 2.0-7.7 [facility] Comment on above: Order Comment: Order Date: 12/02/24 Order Info: [id number] - VITD25 Performed By: #### L 500.4100, L100.0100, L501.9985, L502.0250, L500.4050, L506.1000 #### [facility] [address] [place], [address] Basophils/100 WBC (Bld) 1.1 % High 0-1 [facility] Comment on above: Order Comment: Order Date: 12/02/24 Order Info: [id number] - VITD25 Performed By: #### L 500.4100, L100.0100, L501.9985, L502.0250, L500.4050, L506.1000 #### [facility] [address] [place], [address] Eosinophils/100 WBC (Bld) 4.5 % Normal 0-5 [facility] Comment on above: Order Comment: Order Date: 12/02/24 Order Info: [id number] - VITD25 Performed By: #### L 500.4100, L100.0100, L501.9985, L502.0250, L500.4050, L506.1000 #### [facility] [address] [place], [address] Erythrocyte distribution width (RBC) [Ratio] 16.0 % High 11.6-14.6 [facility] Comment on above: Order Comment: Order Date: 12/02/24 Order Info: [id number] - VITD25 Performed By: #### L 500.4100, L100.0100, L501.9985, L502.0250, L500.4050, L506.1000 #### [facility] [address] [place], [address] Hematocrit (Bld) [Volume fraction] 40.5 % Normal 40-54 [facility] Comment on above: Order Comment: Order Date: 12/02/24 Order Info: [id number] - VITD25 Performed By: #### L 500.4100, L100.0100, L501.9985, L502.0250, L500.4050, L506.1000 #### [facility] [address] [place], [address] Hemoglobin (Bld) [Mass/Vol] 12.9 g/dL Low 13.0-16.5 [facility] Comment on above: Order Comment: Order Date: 12/02/24 Order Info: [id number] - VITD25 Performed By: #### L 500.4100, L100.0100, L501.9985, L502.0250, L500.4050, L506.1000 #### [facility] [address] [place], [address] IG% 0.500 Normal 0.0-0.9 [facility] Comment on above: Order Comment: Order Date: 12/02/24 Order Info: [id number] - VITD25 Result Comment: IG% - Immature Granulocytes (promyelocytes, myelocytes and metamyelocytes) > 1% indicates that a LEFT SHIFT is Present. Performed By: #### L 500.4100, L100.0100, L501.9985, L502.0250, L500.4050, L506.1000 #### [facility] [address] [place], [address] Lymphocytes/100 WBC (Bld) 12.0 % Low 19-41 [facility] Comment on above: Order Comment: Order Date: 12/02/24 Order Info: [id number] - VITD25 Performed By: #### L 500.4100, L100.0100, L501.9985, L502.0250, L500.4050, L506.1000 #### [facility] [address] [place], [address] MCH (RBC) [Entitic mass] 28.8 pg Normal 27.0-32.0 [facility] Comment on above: Order Comment: Order Date: 12/02/24 Order Info: [id number] - VITD25 Performed By: #### L 500.4100, L100.0100, L501.9985, L502.0250, L500.4050, L506.1000 #### [facility] [address] [place], [address] MCHC (RBC) [Mass/Vol] 31.9 g/dL Low 32-36 [facility] Comment on above: Order Comment: Order Date: 12/02/24 Order Info: [id number] - VITD25 Performed By: #### L 500.4100, L100.0100, L501.9985, L502.0250, L500.4050, L506.1000 #### [facility] [address] [place], [address] MCV (RBC) [Entitic vol] 90.4 fL Normal 80-94 [facility] Comment on above: Order Comment: Order Date: 12/02/24 Order Info: [id number] - VITD25 Performed By: #### L 500.4100, L100.0100, L501.9985, L502.0250, L500.4050, L506.1000 #### [facility] [address] [place], [address] Monocytes/100 WBC (Bld) 7.9 % Normal 0-10 [facility] Comment on above: Order Comment: Order Date: 12/02/24 Order Info: [id number] - VITD25 Performed By: #### L 500.4100, L100.0100, L501.9985, L502.0250, L500.4050, L506.1000 #### [facility] [address] [place], [address] Neutrophils/100 WBC (Bld) 74.0 % High 47-70 [facility] Comment on above: Order Comment: Order Date: 12/02/24 Order Info: [id number] - VITD25 Performed By: #### L 500.4100, L100.0100, L501.9985, L502.0250, L500.4050, L506.1000 #### [facility] [address] [place], [address] Nucleated RBC (Bld) [#/Vol] 0 10*3/uL Normal 0-5 [facility] Comment on above: Order Comment: Order Date: 12/02/24 Order Info: [id number] - VITD25 Performed By: #### L 500.4100, L100.0100, L501.9985, L502.0250, L500.4050, L506.1000 #### [facility] [address] [place], [address] Platelet mean volume (Bld) [Entitic vol] 8.9 fL Normal 6.2-12.0 [facility] Comment on above: Order Comment: Order Date: 12/02/24 Order Info: [id number] - VITD25 Performed By: #### L 500.4100, L100.0100, L501.9985, L502.0250, L500.4050, L506.1000 #### [facility] [address] [place], [address] Platelets (Bld) [#/Vol] 236 10*3/uL Normal 150-450 [facility] Comment on above: Order Comment: Order Date: 12/02/24 Order Info: [id number] - VITD25 Performed By: #### L 500.4100, L100.0100, L501.9985, L502.0250, L500.4050, L506.1000 #### [facility] [address] [place], [address] RBC (Bld) [#/Vol] 4.48 10*6/uL Low 4.6-6.2 [facility] Comment on above: Order Comment: Order Date: 12/02/24 Order Info: [id number] - VITD25 Performed By: #### L 500.4100, L100.0100, L501.9985, L502.0250, L500.4050, L506.1000 #### [facility] [address] [place], [address] RDW SD 52.3 fl High 35.1-43.9 [facility] Comment on above: Order Comment: Order Date: 12/02/24 Order Info: [id number] - VITD25 Performed By: #### L 500.4100, L100.0100, L501.9985, L502.0250, L500.4050, L506.1000 #### [facility] [address] [place], [address] WBC (Bld) [#/Vol] 4.4 10*3/uL Normal 4.4-11.0 [facility] Comment on above: Order Comment: Order Date: 12/02/24 Order Info: [id number] - VITD25 Performed By: #### L 500.4100, L100.0100, L501.9985, L502.0250, L500.4050, L506.1000 #### [facility] [address] [place], [address] Comprehensive Metabolic Prof [facility] 05-05-2024 Albumin [Mass/Vol] 3.7 g/dL Normal 3.2-5.0 [facility] Comment on above: Order Comment: Order Date: 12/02/24 Order Info: [id number] - VITD25 Performed By: #### L 500.4100, L100.0100, L501.9985, L502.0250, L500.4050, L506.1000 #### [facility] [address] [place], [address] Albumin/Globulin [Mass ratio] 0.9 {ratio} Normal 0.9-2.4 [facility] Comment on above: Order Comment: Order Date: 12/02/24 Order Info: [id number] - VITD25 Performed By: #### L 500.4100, L100.0100, L501.9985, L502.0250, L500.4050, L506.1000 #### [facility] [address] [place], [address] ALK P 164 U/L High 45-117 [facility] Comment on above: Order Comment: Order Date: 12/02/24 Order Info: [id number] - VITD25 Performed By: #### L 500.4100, L100.0100, L501.9985, L502.0250, L500.4050, L506.1000 #### [facility] [address] [place], [address] ALT [Catalytic activity/Vol] 27 U/L Normal 16-61 [facility] Comment on above: Order Comment: Order Date: 12/02/24 Order Info: [id number] - VITD25 Performed By: #### L 500.4100, L100.0100, L501.9985, L502.0250, L500.4050, L506.1000 #### [facility] [address] [place], [address] AST [Catalytic activity/Vol] 18 U/L Normal 15-37 [facility] Comment on above: Order Comment: Order Date: 12/02/24 Order Info: [id number] - VITD25 Performed By: #### L 500.4100, L100.0100, L501.9985, L502.0250, L500.4050, L506.1000 #### [facility] [address] [place], [address] Bilirubin [Mass/Vol] 0.30 mg/dL Normal 0.20-1.00 [facility] Comment on above: Order Comment: Order Date: 12/02/24 Order Info: [id number] - VITD25 Result Comment: For patients on eltrombopag therapy, use of Dimension Oolitic TBIL is not recommended. Performed By: #### L 500.4100, L100.0100, L501.9985, L502.0250, L500.4050, L506.1000 #### [facility] [address] [place], [address] BUN/CRE 11.7 RATIO Normal 10-20 [facility] Comment on above: Order Comment: Order Date: 12/02/24 Order Info: [id number] - VITD25 Performed By: #### L 500.4100, L100.0100, L501.9985, L502.0250, L500.4050, L506.1000 #### [facility] [address] [place], [address] CA,Total 10.0 mg/dL Normal 8.5-10.1 [facility] Comment on above: Order Comment: Order Date: 12/02/24 Order Info: [id number] - VITD25 Performed By: #### L 500.4100, L100.0100, L501.9985, L502.0250, L500.4050, L506.1000 #### [facility] [address] [place], [address] Chloride [Moles/Vol] 105 mmol/L Normal 98-107 [facility] Comment on above: Order Comment: Order Date: 12/02/24 Order Info: [id number] - VITD25 Performed By: #### L 500.4100, L100.0100, L501.9985, L502.0250, L500.4050, L506.1000 #### [facility] [address] [place], [address] CO2 [Moles/Vol] 24.0 mmol/L Normal 21.0-32.0 [facility] Comment on above: Order Comment: Order Date: 12/02/24 Order Info: [id number] - VITD25 Performed By: #### L 500.4100, L100.0100, L501.9985, L502.0250, L500.4050, L506.1000 #### [facility] [address] [facility] [place], [address] Creatinine [Mass/Vol] 2.99 mg/dL High 0.70-1.30 [facility] Comment on above: Order Comment: Order Date: 12/02/24 Order Info: [id number] - VITD25 Result Comment: The validity of the calculated GFR GFRAA in patients over 70 years has not been determined. Clinical correlation is essential. Performed By: #### L 500.4100, L100.0100, L501.9985, L502.0250, L500.4050, L506.1000 #### [facility] [address] [place], [address] EST GFR - AA 31 mL/min Low >60 [facility] Comment on above: Order Comment: Order Date: 12/02/24 Order Info: [id number] - VITD25 Result Comment: Afri can Iraqi GFR Calc Performed By: #### L 500.4100, L100.0100, L501.9985, L502.0250, L500.4050, L506.1000 #### [facility] [address] [place], [address] GAP 10 Normal 5-15 [facility] Comment on above: Order Comment: Order Date: 12/02/24 Order Info: [id number] - VITD25 Performed By: #### L 500.4100, L100.0100, L501.9985, L502.0250, L500.4050, L506.1000 #### [facility] [address] [place], [address] GFR/1.73 sq M.predicted among non-blacks MDRD (S/P/Bld) [Vol rate/Area] 26 mL/min/{1.73_m2} Low >60 [facility] Comment on above: Order Comment: Order Date: 12/02/24 Order Info: [id number] - VITD25 Result Comment: Non- GFR Calc Performed By: #### L 500.4100, L100.0100, L501.9985, L502.0250, L500.4050, L506.1000 #### [facility] [address] [place], [address] Globulin (S) [Mass/Vol] 3.9 g/dL Normal 2.2-4.2 [facility] Comment on above: Order Comment: Order Date: 12/02/24 Order Info: [id number] - VITD25 Performed By: #### L 500.4100, L100.0100, L501.9985, L502.0250, L500.4050, L506.1000 #### [facility] [address] [place], [address] Glucose [Mass/Vol] 125 mg/dL High 74-106 [facility] Comment on above: Order Comment: Order Date: 12/02/24 Order Info: [id number] - VITD25 Result Comment: Fast ing Glucose result from 100 to 125 mg/dL suggests IMPAIRED HOMEOSTASIS per A.D.A. criteria. Performed By: #### L 500.4100, L100.0100, L501.9985, L502.0250, L500.4050, L506.1000 #### [facility] [address] [place], [address] Potassium [Moles/Vol] 3.6 mmol/L Normal 3.5-5.1 [facility] Comment on above: Order Comment: Order Date: 12/02/24 Order Info: [id number] - VITD25 Performed By: #### L 500.4100, L100.0100, L501.9985, L502.0250, L500.4050, L506.1000 #### [facility] [address] [place], [address] Sodium [Moles/Vol] 139 mmol/L Normal 136-145 [facility] Comment on above: Order Comment: Order Date: 12/02/24 Order Info: [id number] - VITD25 Performed By: #### L 500.4100, L100.0100, L501.9985, L502.0250, L500.4050, L506.1000 #### [facility] [address] [place], [address] T PROT 7.6 g/dL Normal 6.4-8.2 [facility] Comment on above: Order Comment: Order Date: 12/02/24 Order Info: [id number] - VITD25 Performed By: #### L 500.4100, L100.0100, L501.9985, L502.0250, L500.4050, L506.1000 #### [facility] [address] [place], [address] Urea nitrogen [Mass/Vol] 35 mg/dL High 7-18 [facility] Comment on above: Order Comment: Order Date: 12/02/24 Order Info: [id number] - VITD25 Performed By: #### L 500.4100, L100.0100, L501.9985, L502.0250, L500.4050, L506.1000 #### [facility] [address] [place], [address] Hemoglobin A1con 05-05-2024 HbA1c (Bld) [Mass fraction] 5.0 % Normal 3.8-5.6 [facility] Comment on above: Order Comment: Order Date: 12/02/24 Order Info: [id number] - VITD25 Result Comment: Norm al < 5.7 % Prediabetic 5.7 - 6.4 % Diabetic >or= 6.5 % Please note range changes. Performed By: #### L 500.4100, L100.0100, L501.9985, L502.0250, L500.4050, L506.1000 #### [facility] [address] [place], [address] Lipid Profileon 05-05-2024 Cholesterol [Mass/Vol] 142 mg/dL Normal 200 [facility] Comment on above: Order Comment: Order Date: 12/02/24 Order Info: [id number] - VITD25 Result Comment: <200 mg/dL Desirable 200-240 mg/dL Borderline >240 mg/dL High Risk Performed By: #### L 500.4100, L100.0100, L501.9985, L502.0250, L500.4050, L506.1000 #### [facility] [address] [place], [address] Cholesterol in HDL [Mass/Vol] 36 mg/dL Low [facility] Comment on above: Order Comment: Order Date: 12/02/24 Order Info: [id number] - VITD25 Result Comment: The drugs N-Acetylcysteine and Metamizole may falsely depress this assay. Reference Range HDL <40 mg/dL Low HDL Cholesterol HDL >or= 60 mg/dL High HDL Cholesterol Performed By: #### L 500.4100, L100.0100, L501.9985, L502.0250, L500.4050, L506.1000 #### [facility] [address] [place], [address] Cholesterol in LDL [Mass/Vol] 53 mg/dL Normal 0-130 [facility] Comment on above: Order Comment: Order Date: 12/02/24 Order Info: [id number] - VITD25 Performed By: #### L 500.4100, L100.0100, L501.9985, L502.0250, L500.4050, L506.1000 #### [facility] [address] [place], [address] Cholesterol in VLDL [Mass/Vol] 53 mg/dL High 5-40 [facility] Comment on above: Order Comment: Order Date: 12/02/24 Order Info: [id number] - VITD25 Performed By: #### L 500.4100, L100.0100, L501.9985, L502.0250, L500.4050, L506.1000 #### [facility] [address] [place], [address] Triglyceride [Mass/Vol] 264 mg/dL High [facility] Comment on above: Order Comment: Order Date: 12/02/24 Order Info: [id number] - VITD25 Result Comment: The drugs N-Acetylcysteine and Metamizole may falsely depress this assay. Serum Triglycerides Reference Interval Normal <150 mg/dL Borderline high 150 - 199 mg/dL High 200 - 499 mg/dL Very High > or = 500 mg/dL Performed By: #### L 500.4100, L100.0100, L501.9985, L502.0250, L500.4050, L506.1000 #### [facility] [address] [place], [address] Microalb:Creat Ratio,Random URon 05-05-2024 MALB:CRE 1038.4 mg/g CRE High <30 mg/g CRE [facility] Comment on above: Order Comment: Order Date: 12/02/24 Order Info: [id number] - VITD25 Performed By: #### L 500.4100, L100.0100, L501.9985, L502.0250, L500.4050, L506.1000 #### [facility] [address] [place], [address] MICROALBUMIN,UR 568.0 mg/L Normal NO RANGE EST. [facility] Comment on above: Order Comment: Order Date: 12/02/24 Order Info: [id number] - VITD25 Performed By: #### L 500.4100, L100.0100, L501.9985, L502.0250, L500.4050, L506.1000 #### [facility] [address] [place], [address] PTHINon 05-05-2024 PTH 41.5 pg/mL Normal 18.4-80.1 [facility] Comment on above: Order Comment: Order Date: 12/02/24 Order Info: [id number] - VITD25 Performed By: #### L 500.4100, L100.0100, L501.9985, L502.0250, L500.4050, L506.1000 #### [facility] [address] [place], [address] Phosphoruson 05-05-2024 Phosphate [Mass/Vol] 2.9 mg/dL Normal 2.5-4.9 [facility] Comment on above: Order Comment: Order Date: 12/02/24 Order Info: [id number] - VITD25 Performed By: #### L 500.4100, L100.0100, L501.9985, L502.0250, L500.4050, L506.1000 #### [facility] [address] [place], [address] Protein+Creatinine Ratio,Uri neon 05-05-2024 PROT:CRE RATIO 1534 mg/g CRE High 0-200 [facility] Comment on above: Order Comment: Order Date: 12/02/24 Order Info: [id number] - CMP Order Info: [id number] - LIPID Performed By: #### L 500.4100, L100.0100, L501.9985, L502.0250, L500.4050, L506.1000 #### [facility] [address] [place], [address] Protein (U) [Mass/Vol] 83.9 mg/dL High <11.9 [facility] Comment on above: Order Comment: Order Date: 12/02/24 Order Info: [id number] - CMP Order Info: [id number] - LIPID Performed By: #### L 500.4100, L100.0100, L501.9985, L502.0250, L500.4050, L506.1000 #### [facility] [address] [place], [address] UR CREAT 54.70 mg/dL Normal NO RANGE EST. [facility] Comment on above: Order Comment: Order Date: 12/02/24 Order Info: [id number] - CMP Order Info: [id number] - LIPID Performed By: #### L 500.4100, L100.0100, L501.9985, L502.0250, L500.4050, L506.1000 #### [facility] [address] [place], [address] Urinalysis, Completeon 05-05 BACTERIA 1+ /hpf Normal None Seen [facility] Comment on above: Order Comment: Order Date: 12/02/24 Order Info: [id number] - CMP Order Info: [id number] - LIPID Performed By: #### L 500.4100, L100.0100, L501.9985, L502.0250, L500.4050, L506.1000 #### [facility] [address] [place], [address] RBC 0-5 SEEN Normal 0-5 [facility] Comment on above: Order Comment: Order Date: 12/02/24 Order Info: [id number] - CMP Order Info: [id number] - LIPID Performed By: #### L 500.4100, L100.0100, L501.9985, L502.0250, L500.4050, L506.1000 #### [facility] [address] [place], [address] WBC 5-10 SEEN Normal 0-5 [facility] Comment on above: Order Comment: Order Date: 12/02/24 Order Info: [id number] - CMP Order Info: [id number] - LIPID Performed By: #### L 500.4100, L100.0100, L501.9985, L502.0250, L500.4050, L506.1000 #### [facility] [address] [place], [address] EPI,SQUAMOUS 0 SEEN Normal 0-5 [facility] Comment on above: Order Comment: Order Date: 12/02/24 Order Info: [id number] - CMP Order Info: [id number] - LIPID Performed By: #### L 500.4100, L100.0100, L501.9985, L502.0250, L500.4050, L506.1000 #### [facility] [address] [place], [address] Mucus Ql (Urine sed) 0 SEEN Normal [facility] Comment on above: Order Comment: Order Date: 12/02/24 Order Info: [id number] - CMP Order Info: [id number] - LIPID Performed By: #### L 500.4100, L100.0100, L501.9985, L502.0250, L500.4050, L506.1000 #### [facility] [address] [facility] [place], [place], [address] Vitamin D,25 Hydroxyon 05-05 Vitamin D 25-OH 38.8 ng/mL Normal [facility] Comment on above: Order Comment: Order Date: 12/02/24 Order Info: [id number] - VITD25 Result Comment: Linda min D 25(OH) Status Range Deficiency <20 ng/mL (50nmol/L) Insufficiency 20 - 30 ng/mL (50 - 75 nmol/L) Sufficiency 30 - 100 ng/mL (75 - 250 nmol/L) Toxicity >100 ng/mL (>250 nmol/L) Performed By: #### L 500.4100, L100.0100, L501.9985, L502.0250, L500.4050, L506.1000 #### [facility] [address] [facility] [place], [place], [address] AFP [facility] 04-28-2024 AFP [Mass/Vol] ng/mL Normal <11.0 [facility] Comment on above: Order Comment: Speci men Type: BLOOD SPECIMENOrdering Facility: [facility] Address: [address] [place] [address] Result Comment: The test is typically used as an aid in managing hepatocellular carcinoma and non-seminomatous testicular cancer when used in conjunction with physical examination, histology, and other clinical evaluation procedures. Normal levels of AFP do not entirely exclude the possibility of the above-mentioned conditions, other malignancies, and chronic liver diseases. The normal range has not been established for newborns.The Alpha-Fetoprotein test was performed using the Siemens ClearPoint Metricsaur XP chemiluminometric immunoassay method. Results obtained with different assay methods or kits cannot be used interchangeably. Performed By: #### 1 834-1 ####[facility] LABCLIA [id number] [facility] [id number] [id number] [place] BETA HCG QUANT TUMOR MARKERo n 04-28-2024 BETA HCG QUANT TUMOR MARKER <1 Normal 0-3 [facility] Comment on above: Order Comment: Speci men Type: BLOOD SPECIMENOrdering Facility: [facility] Address: [address] [place] [address] Result Comment: INTE RPRETIVE INFORMATION: Beta hCG, Serum Quantitation Tumor MarkerHuman chorionic gonadotropin (hCG) is a valuable aid in themanagement of patients with trophoblastic tumors, nonseminomatoustesticular tumors and seminomas when used in conjunction withinformation available from the clinical evaluation and otherdiagnostic procedures. Increased serum HCG concentrations havealso been observed in melanoma, carcinomas of the breast,gastrointestinal tract, lung, and ovaries, and in benignconditions, including cirrhosis, duodenal ulcer, and inflammatorybowel disease. This result cannot be interpreted as absoluteevidence of the presence or absence of malignant disease. Thisresult is not interpretable as a tumor marker in females.The combination of the specific monoclonal antibodies used in theRoche Beta HCG electrochemiluminescent immunoassay recognize theholo-hormone, nicked forms of hCG, the beta-core fragment, andthe free beta-subunit. Results obtained with different testmethods or kits cannot be used interchangeably. Although thisassay is FDA cleared for use in the detection of , it isnot labeled for use as a tumor marker.Access complete set of age- and/or gender-specific referenceintervals for this test in the [facility] Test Directory([facility]).This test was developed and its performance characteristicsdetermined by [facility]. It has not been cleared orapproved by the [place] Food and Drug Administration. This test wasperformed in a CLIA certified laboratory and is intended forclinical purposes.Performed By: [facility] [place], [place] [address] Director: Matt Rodriguez MD, PhDCLIA Number: [id number] Performed By: #### B HCG ####[facility] [id number] [place] [address] CBC W Auto Differential pane l (Bld)on 04-28-2024 Basophils (Bld) [#/Vol] 0.03 10*3/uL [facility] Basophils/100 WBC (Bld) 0.8 % [facility] Differential cell count method Nom (Bld) Auto [facility] Eosinophils (Bld) [#/Vol] 0.18 10*3/uL [facility] Eosinophils/100 WBC (Bld) 4.7 % [facility] Erythrocyte distribution width (RBC) [Ratio] 15.9 % High 11.5 - 15.0 % [facility] Hematocrit (Bld) [Volume fraction] 37.2 % Low 39.0 - 51.0 % [facility] Hemoglobin (Bld) [Mass/Vol] 12.1 g/dL Low 13.0 - 17.0 g/dL [facility] Immature granulocytes (Bld) [#/Vol] [facility] Immature granulocytes/100 WBC (Bld) 0.5 % [facility] Interpretation and review of laboratory results Abnormal [facility] Lymphocytes (Bld) [#/Vol] 0.51 10*3/uL Low [facility] Lymphocytes/100 WBC (Bld) 13.4 % [facility] MCH (RBC) [Entitic mass] 28.7 pg 26.0 - 34.0 pg [facility] MCHC (RBC) [Mass/Vol] 32.5 g/dL 30.5 - 36.0 g/dL [facility] MCV (RBC) [Entitic vol] 88.2 fL 80.0 - 100.0 fL [facility] Monocytes (Bld) [#/Vol] 0.30 10*3/uL [facility] Monocytes/100 WBC (Bld) 7.9 % [facility] Neutrophils (Bld) [#/Vol] 2.77 10*3/uL [facility] Neutrophils/100 WBC (Bld) 72.7 % [facility] Nucleated RBC (Bld) [#/Vol] [facility] Nucleated RBC/100 WBC (Bld) [Ratio] 0.0 % /100 WBC [facility] Platelet mean volume (Bld) [Entitic vol] 8.5 fL Low 9.0 - 12.7 fL [facility] Platelets (Bld) [#/Vol] 193 10*3/uL [facility] RBC (Bld) [#/Vol] 4.22 10*6/uL 4.20 - 6.0 0 m/uL [facility] WBC (Bld) [#/Vol] 3.81 10*3/uL [facility] Basophils (Bld) [#/Vol] 0.03 10*3/uL Normal <0.11 [facility] Comment on above: Order Comment: Speci men Type: BLOOD SPECIMENOrdering Facility: [facility] Address: [address] [place] [address] Performed By: #### 5 7021-8 ####[facility] MILLWNCLIA [id number] [place] [address] [place] Basophils/100 WBC (Bld) 0.8 % Normal [facility] Comment on above: Order Comment: Speci men Type: BLOOD SPECIMENOrdering Facility: [facility] Address: [address] [place] [address] Performed By: #### 5 7021-8 ####[facility] CITYWDCLIA [id number] [place] [address] [place] Differential cell count method Nom (Bld) Auto Normal [facility] Comment on above: Order Comment: Speci men Type: BLOOD SPECIMENOrdering Facility: [facility] Address: [address] [place] [address] Performed By: #### 5 7021-8 ####[facility] [id number] [place] [address] [place] Eosinophils (Bld) [#/Vol] 0.18 10*3/uL Normal <0.46 [facility] Comment on above: Order Comment: Speci men Type: BLOOD SPECIMENOrdering Facility: [facility] Address: [address] [place] [address] Performed By: #### 5 7021-8 ####[facility]ITAL[facility]CLIA [id number] [place] [address] [place] Eosinophils/100 WBC (Bld) 4.7 % Normal [facility] Comment on above: Order Comment: Speci men Type: BLOOD SPECIMENOrdering Facility: [facility] Address: [address] [place] [address] Performed By: #### 5 7021-8 ####[facility] [id number] [place] [address] [place] Erythrocyte distribution width (RBC) [Ratio] 15.9 % High 11.5-15.0 [facility] Comment on above: Order Comment: Speci men Type: BLOOD SPECIMENOrdering Facility: [facility] Address: [address] [place] [address] Performed By: #### 5 7021-8 ####[facility]ITALNCLI [id number] [place] [address] [place] Hematocrit (Bld) [Volume fraction] 37.2 % Low 39.0-51.0 [facility] Comment on above: Order Comment: Speci men Type: BLOOD SPECIMENOrdering Facility: [facility] Address: [address] [place] [address] Performed By: #### 5 7021-8 ####[facility] [id number] [place] [address] [place] Hemoglobin (Bld) [Mass/Vol] 12.1 g/dL Low 13.0-17.0 [facility] Comment on above: Order Comment: Speci men Type: BLOOD SPECIMENOrdering Facility: [facility] Address: [address] [place] [address] Performed By: #### 5 7021-8 ####[facility] [id number] [place] [address] [place] Immature granulocytes (Bld) [#/Vol] 10*3/uL Normal <0.10 [facility] Comment on above: Order Comment: Speci men Type: BLOOD SPECIMENOrdering Facility: [facility] Address: [address] [place] [address] Performed By: #### 5 7021-8 ####[facility]ITALNCLIA [id number] [place] [address] [place] [facility] Immature granulocytes/100 WBC (Bld) 0.5 % Normal [facility] Comment on above: Order Comment: Speci men Type: BLOOD SPECIMENOrdering Facility: [facility] Address: [address] [place] [address] Performed By: #### 5 7021-8 ####[facility]ITALNCLIA [id number] [place] [address] [place] Lymphocytes (Bld) [#/Vol] 0.51 10*3/uL Low 1.00-4.00 [facility] Comment on above: Order Comment: Speci men Type: BLOOD SPECIMENOrdering Facility: [facility] Address: [address] [place] [address] Performed By: #### 5 7021-8 ####[facility]ITALNCLIA [id number] [place] [address] [place] Lymphocytes/100 WBC (Bld) 13.4 % Normal [facility] Comment on above: Order Comment: Speci men Type: BLOOD SPECIMENOrdering Facility: [facility] Address: [address] [place] [address] Performed By: #### 5 7021-8 ####[facility]ITALNCLIA [id number] [place] [address] [place] MCH (RBC) [Entitic mass] 28.7 pg Normal 26.0-34.0 [facility] Comment on above: Order Comment: Speci men Type: BLOOD SPECIMENOrdering Facility: [facility] Address: [address] [place] [address] Performed By: #### 5 7021-8 ####[facility]ITALNCLI [id number] [place] [address] [place] MCHC (RBC) [Mass/Vol] 32.5 g/dL Normal 30.5-36.0 [facility] Comment on above: Order Comment: Speci men Type: BLOOD SPECIMENOrdering Facility: [facility] Address: [address] [place] [address] Performed By: #### 5 7021-8 ####[facility] HOSPITALLIA [id number] [place] [address] [place] MCV (RBC) [Entitic vol] 88.2 fL Normal 80.0-100.0 [facility] Comment on above: Order Comment: Speci men Type: BLOOD SPECIMENOrdering Facility: [facility] Address: [address] [place] [address] Performed By: #### 5 7021-8 ####[facility] EMERGENCYA [id number] [place] [address] [place] Monocytes (Bld) [#/Vol] 0.30 10*3/uL Normal <0.87 [facility] Comment on above: Order Comment: Speci men Type: BLOOD SPECIMENOrdering Facility: [facility] Address: [address] [place] [address] Performed By: #### 5 7021-8 ####[facility] HOSPITALPABLOA [id number] [place] [address] [place] Monocytes/100 WBC (Bld) 7.9 % Normal C [facility] Comment on above: Order Comment: Speci men Type: BLOOD SPECIMENOrdering Facility: [facility] Address: [address] [place] [address] Performed By: #### 5 7021-8 ####[facility] HOSPITALLIA [id number] [place] [address] [place] Neutrophils (Bld) [#/Vol] 2.77 10*3/uL Normal 1.45-7.50 [facility] Comment on above: Order Comment: Speci men Type: BLOOD SPECIMENOrdering Facility: [facility] Address: [address] [place] [address] Performed By: #### 5 7021-8 ####[facility] [id number] [place] [address] [place] Neutrophils/100 WBC (Bld) 72.7 % Normal [facility] Comment on above: Order Comment: Speci men Type: BLOOD SPECIMENOrdering Facility: [facility] Address: [address] [place] [address] Performed By: #### 5 7021-8 ####[facility] [id number] [place] [address] [place] Nucleated RBC (Bld) [#/Vol] 10*3/uL Normal <0.01 [facility] Comment on above: Order Comment: Speci men Type: BLOOD SPECIMENOrdering Facility: [facility] Address: [address] [place] [address] Performed By: #### 5 7021-8 ####[facility] [id number] [place] [address] [place] Nucleated RBC/100 WBC (Bld) [Ratio] 0.0 /100 WBC Normal [facility] Comment on above: Order Comment: Speci men Type: BLOOD SPECIMENOrdering Facility: [facility] Address: [address] [place] [address] Performed By: #### 5 7021-8 ####[facility] [id number] [place] [address] [place] Platelet mean volume (Bld) [Entitic vol] 8.5 fL Low 9.0-12.7 [facility] Comment on above: Order Comment: Speci men Type: BLOOD SPECIMENOrdering Facility: [facility] Address: [address] [place] [address] [place] [address] Performed By: #### 5 7021-8 ####[facility] ONESIMONCLIA [id number] [place] [address] [place] Platelets (Bld) [#/Vol] 193 10*3/uL Normal 150-400 [facility] Comment on above: Order Comment: Speci men Type: BLOOD SPECIMENOrdering Facility: [facility] Address: [address] [place], [place] [address] Performed By: #### 5 7021-8 ####[facility] AZRAPEERLESSNCLIA [id number] [place] [address] [place] RBC (Bld) [#/Vol] 4.22 10*6/uL Normal 4.20-6.00 [facility] Comment on above: Order Comment: Speci men Type: BLOOD SPECIMENOrdering Facility: [facility] Address: [address] [place] [address] Performed By: #### 5 7021-8 ####[facility] HOSPITALNCA [id number] [place] [address] [place] WBC (Bld) [#/Vol] 3.81 10*3/uL Normal 3.70-11.00 [facility] Comment on above: Order Comment: Speci men Type: BLOOD SPECIMENOrdering Facility: [facility] Address: [address] [place], [place] [address] Performed By: #### 5 7021-8 ####[facility] HOSPITALNCLIA [id number] [place] [address] [place] CNOVSPon 04-28-2024 CNOVSP Normal [facility] CNPNon 04-28-2024 CNPN Normal [facility] Comprehensive metabolic 2000 panelon 04-28-2024 Albumin [Mass/Vol] 4.0 g/dL 3.9 - 4.9 g/dL [facility] ALP [Catalytic activity/Vol] 166 U/L High 38 - 113 U/L [facility] ALT [Catalytic activity/Vol] 16 U/L 10 - 54 U/L [facility] Anion gap [Moles/Vol] 10 mmol/L 8 - 15 mmol/L [facility] AST [Catalytic activity/Vol] 16 U/L 14 - 40 U/L [facility] Bilirubin [Mass/Vol] 0.2 mg/dL 0.2 - 1 .3 mg/dL [facility] Calcium [Mass/Vol] 10.0 mg/dL 8.5 - 10. 2 mg/dL [facility] Chloride [Moles/Vol] 104 mmol/L 98 - 10 7 mmol/L [facility] CO2 [Moles/Vol] 23 mmol/L 22 - 30 mmol/L [facility] Creatinine [Mass/Vol] 2.63 mg/dL High 0.73 - 1.22 mg/dL [facility] GFR/1.73 sq M.predicted among non-blacks MDRD (S/P/Bld) [Vol rate/Area] 32 mL/min/{1.73_m2} Low - PINF [facility] Comment on above: Estimated Glomerular Filtration Rate (eGFR) is calculated using the 2020 CKD-EPI creatinine equation. This equation utilizes serum creatinine, sex, and age as parameters. The creatinine assay has traceable calibration to isotope dilution-mass spectrometry. Refer to KDIGO guidelines for clinical interpretation. In patients with unstable renal function, e.g. those with acute kidney injury, the eGFR may not accurately reflect actual GFR. Glucose [Mass/Vol] 127 mg/dL High 74 - 99 mg/dL [facility] Comment on above: The [place] Diabete s Association (ADA) provides guidance for cutoff values for fasting glucose and random glucose. The ADA defines fasting as no caloric intake for at least 8 hours. Fasting plasma glucose results between 100 to 125 mg/dL indicate increased risk for diabetes (prediabetes). Fasting plasma glucose results greater than or equal to 126 mg/dL meet the criteria for diagnosis of diabetes. In the absence of unequivocal hyperglycemia, results should be confirmed by repeat testing. In a patient with classic symptoms of hyperglycemia or hyperglycemic crisis, random plasma glucose results greater than or equal to 200 mg/dL meet the criteria for diagnosis of diabetes. Reference: Standards of Medical Care in Diabetes 2016, [place] Diabetes Association. Diabetes Care. 2016.39(Suppl 1). Interpretation and review of laboratory results Abnormal [facility] Potassium [Moles/Vol] 3.5 mmol/L Low 3.7 - 5.1 mmol/L [facility] Protein [Mass/Vol] 6.8 g/dL 6.3 - 8.0 g/dL [facility] Sodium [Moles/Vol] 137 mmol/L 136 - 144 mmol/L [facility] Urea nitrogen [Mass/Vol] 37 mg/dL High 9 - 24 mg/dL [facility] Albumin [Mass/Vol] 4.0 g/dL Normal 3.9-4.9 [facility] Comment on above: Order Comment: Speci men Type: BLOOD SPECIMENOrdering Facility: [facility] Address: [address] [place] [address] Performed By: #### 1 9123-9, 58243-0, 253-0 ####[facility] [id number] [place] [address] [place] ALP [Catalytic activity/Vol] 166 U/L High 38-113 [facility] Comment on above: Order Comment: Speci men Type: BLOOD SPECIMENOrdering Facility: [facility] Address: [address] [place] [address] Performed By: #### 1 9123-9, 53548-7, 2531-0 ####[facility] [id number] [place] [address] [place] ALT [Catalytic activity/Vol] 16 U/L Normal 10-54 [facility] Comment on above: Order Comment: Speci men Type: BLOOD SPECIMENOrdering Facility: [facility] Address: [address] [place] [address] Performed By: #### 1 9123-9, 80530-9, 2-0 ####[facility] [id number] [place] [address] [place] Anion gap [Moles/Vol] 10 mmol/L Normal 8-15 [facility] Comment on above: Order Comment: Speci men Type: BLOOD SPECIMENOrdering Facility: [facility] Address: [address] [place], [place] [address] Performed By: #### 1 9123-9, 65380-5, 2531-0 ####[facility] LEON OQUENDOMIKIEWNCPABLOA [id number] [place] [address] [place] AST [Catalytic activity/Vol] 16 U/L Normal 14-40 [facility] Comment on above: Order Comment: Speci men Type: BLOOD SPECIMENOrdering Facility: [facility] Address: [address] [place] [address] Performed By: #### 1 9123-9, 00203-2, 2531-0 ####[facility] AZRAJOCELINENCSELENA [id number] [place] [address] [place] Bilirubin [Mass/Vol] 0.2 mg/dL Normal 0.2-1.3 [facility] Comment on above: Order Comment: Speci men Type: BLOOD SPECIMENOrdering Facility: [facility] Address: [address] [place] [address] Performed By: #### 1 9123-9, 96878-8, 2531-0 ####[facility] LEONMAYO MEMORIAL HOSPITALNCPABLOA [id number] [place] [address] [place] Calcium [Mass/Vol] 10.0 mg/dL Normal 8.5-10.2 [facility] Comment on above: Order Comment: Speci men Type: BLOOD SPECIMENOrdering Facility: [facility] Address: [address] [place], [place] [address] Performed By: #### 1 9123-9, 80339-7, 253-0 ####[facility] HOSPITALNCLIA [id number] [place] [address] [place] Chloride [Moles/Vol] 104 mmol/L Normal 98-107 [facility] Comment on above: Order Comment: Speci men Type: BLOOD SPECIMENOrdering Facility: [facility] Address: [address] [place], [place] [address] Performed By: #### 1 9123-9, 91663-3, 2532-0 ####[facility] LEON AZRAPEERLESSNCLIA [id number] [place] [address] [place] CO2 [Moles/Vol] 23 mmol/L Normal 22-30 [facility] Comment on above: Order Comment: Speci men Type: BLOOD SPECIMENOrdering Facility: [facility] Address: [address] [place] [address] Performed By: #### 1 9123-9, 76359-0, 2-0 ####[facility] HOSPITALNCLIA [id number] [place] [address] [place] Creatinine [Mass/Vol] 2.63 mg/dL High 0.73-1.22 [facility] Comment on above: Order Comment: Speci men Type: BLOOD SPECIMENOrdering Facility: [facility] Address: [address] [place] [address] Performed By: #### 1 9123-9, 32213-8, 2-0 ####[facility]PITALNCLIA [id number] [address] [place] Creatinine and Glomerular filtration rate.predicted panel (S/P/Bld) 32 mL/min/1.73m??? Low >=60 [facility] Comment on above: Order Comment: Speci men Type: BLOOD SPECIMENOrdering Facility: [facility] Address: [address] [place] [address] Result Comment: Elba mated Glomerular Filtration Rate (eGFR) is calculated using the 2020 CKD-EPI creatinine equation. This equation utilizes serum creatinine, sex, and age as parameters. The creatinine assay has traceable calibration to isotope dilution-mass spectrometry. Refer to KDIGO guidelines for clinical interpretation. In patients with unstable renal function, e.g. those with acute kidney injury, the eGFR may not accurately reflect actual GFR. Performed By: #### 1 9123-9, 97858-5, 2531-0 ####[facility] MILLTOWNCLIA [id number] [place] [address] [place] Glucose [Mass/Vol] 127 mg/dL High 74-99 [facility] Comment on above: Order Comment: Speci men Type: BLOOD SPECIMENOrdering Facility: [facility] Address: [address] [place] [address] Result Comment: The [place] Diabetes Association (ADA) provides guidance for cutoff values for fasting glucose and random glucose. The ADA defines fasting as no caloric intake for at least 8 hours. Fasting plasma glucose results between 100 to 125 mg/dL indicate increased risk for diabetes (prediabetes).Fasting plasma glucose results greater than or equal to 126 mg/dL meet the criteria for diagnosis of diabetes. In the absence of unequivocal hyperglycemia, results should be confirmed by repeat testing. In a patient with classic symptoms of hyperglycemia or hyperglycemic crisis, random plasma glucose results greater than or equal to 200 mg/dL meet the criteria for diagnosis of diabetes.Reference: Standards of Medical Care in Diabetes 2016, [place] Diabetes Association. Diabetes Care. 2016.39(Suppl 1). Performed By: #### 1 9123-9, 28848-8, 2531-0 ####[facility] CITYWNCLIA [id number] [place] [address] [place] Potassium [Moles/Vol] 3.5 mmol/L Low 3.7-5.1 [facility] Comment on above: Order Comment: Speci men Type: BLOOD SPECIMENOrdering Facility: [facility] Address: [address] [place] [address] Performed By: #### 1 9123-9, 47579-0, 2531-0 ####[facility] CITYWNCLIA [id number] [place] [address] [place] Protein [Mass/Vol] 6.8 g/dL Normal 6.3-8.0 [facility] Comment on above: Order Comment: Speci men Type: BLOOD SPECIMENOrdering Facility: [facility] Address: [address] [place], [place] [address] Performed By: #### 1 9123-9, 95063-1, 2531-0 ####[facility] AZRATOWNCLIA [id number] [place] [address] [place] Sodium [Moles/Vol] 137 mmol/L Normal 136-144 [facility] Comment on above: Order Comment: Speci men Type: BLOOD SPECIMENOrdering Facility: [facility] Address: [address] [place], [place] [address] Performed By: #### 1 9123-9, 84327-7, 2531-0 ####[facility] AZRAWHALLIELIA [id number] [place] [address] [place] Urea nitrogen [Mass/Vol] 37 mg/dL High 9-24 [facility] Comment on above: Order Comment: Speci men Type: BLOOD SPECIMENOrdering Facility: [facility] Address: [address] [place], [place] [address] Performed By: #### 1 9123-9, 91484-0, 2531-0 ####[facility] AZRAWHALLIELIA [id number] [place] [address] [place] LD LACTATE DEHYDROOrdered By : Jeannette Murillo on 04-28-2024 LDH [Catalytic activity/Vol] 161 U/L 135 - 225 U/L [facility] LDH SerPl-cCncon 04-28-2024 LDH [Catalytic activity/Vol] 161 U/L Normal 135-225 [facility] Comment on above: Order Comment: Speci men Type: BLOOD SPECIMENOrdering Facility: [facility] Address: [address] [place], [place] [address] Performed By: #### 1 9123-9, 41224-9, 2-0 ####[facility] MILLTOWNCLIA [id number] [place] [address] [place] LDH [Catalytic activity/Vol] Ordered By: Jeannette Murillo on 04-28-2024 Interpretation and review of laboratory results Normal [facility] MAGNESIUM BLDon 04-28-2024 Magnesium [Mass/Vol] 1.8 mg/dL 1.7 - 2 .3 mg/dL [facility] Magnesium SerPl-mCncon 04-28 Magnesium [Mass/Vol] 1.8 mg/dL Normal 1.7-2.3 [facility] Comment on above: Order Comment: Speci men Type: BLOOD SPECIMENOrdering Facility: [facility] Address: [address] [place] [address] Performed By: #### 1 9123-9, 09596-9, 2532-0 ####[facility] [id number] [place] [address] [place] Magnesium [Mass/Vol]on 04-28 Interpretation and review of laboratory results Normal [facility] AFP SerPl-ncon 04-19-2024 AFP [Mass/Vol] ng/mL Normal <11.0 [facility] Comment on above: Order Comment: Speci men Type: BLOOD SPECIMENOrdering Facility: [facility] Address: [address] [place] [address] Result Comment: Resu lt rechecked.The test is typically used as an aid in managing hepatocellular carcinoma and non-seminomatous testicular cancer when used in conjunction with physical examination, histology, and other clinical evaluation procedures. Normal levels of AFP do not entirely exclude the possibility of the above-mentioned conditions, other malignancies, and chronic liver diseases. The normal range has not been established for newborns.The Alpha-Fetoprotein test was performed using the Siemens Centaur XP chemiluminometric immunoassay method. Results obtained with different assay methods or kits cannot be used interchangeably. Performed By: #### 1 834-1 ####[facility] LABCLIA [id number] [place] [address] [place] AFP [Mass/Vol]Ordered By: Pablo Sagastume on 04-19-2024 Interpretation and review of laboratory results Normal [facility] ALPHA FETOPROTEIN BLOrdered By: Jyothi Sagastume on 04-19-2024 AFP [Mass/Vol] ng/mL NINF - 11.0 ng/mL [facility] Comment on above: Result rechecked. The test is typically used as an aid in managing hepatocellular carcinoma and non-seminomatous testicular cancer when used in conjunction with physical examination, histology, and other clinical evaluation procedures. Normal levels of AFP do not entirely exclude the possibility of the above-mentioned conditions, other malignancies, and chronic liver diseases. The normal range has not been established for newborns. The Alpha-Fetoprotein test was performed using the Siemens ClearPoint Metricsaur XP chemiluminometric immunoassay method. Results obtained with different assay methods or kits cannot be used interchangeably. BETA HCG QUANT TUMOR MARKERo n 04-19-2024 BETA HCG QUANT TUMOR MARKER <1 Normal 0-3 [facility] Comment on above: Order Comment: Speci men Type: BLOOD SPECIMENOrdering Facility: [facility] Address: [address] [place] [address] Result Comment: INTE RPRETIVE INFORMATION: Beta hCG, Serum Quantitation Tumor MarkerHuman chorionic gonadotropin (hCG) is a valuable aid in themanagement of patients with trophoblastic tumors, nonseminomatoustesticular tumors and seminomas when used in conjunction withinformation available from the clinical evaluation and otherdiagnostic procedures. Increased serum HCG concentrations havealso been observed in melanoma, carcinomas of the breast,gastrointestinal tract, lung, and ovaries, and in benignconditions, including cirrhosis, duodenal ulcer, and inflammatorybowel disease. This result cannot be interpreted as absoluteevidence of the presence or absence of malignant disease. Thisresult is not interpretable as a tumor marker in females.The combination of the specific monoclonal antibodies used in theRoche Beta HCG electrochemiluminescent immunoassay recognize theholo-hormone, nicked forms of hCG, the beta-core fragment, andthe free beta-subunit. Results obtained with different testmethods or kits cannot be used interchangeably. Although thisassay is FDA cleared for use in the detection of , it isnot labeled for use as a tumor marker.Access complete set of age- and/or gender-specific referenceintervals for this test in the [facility] Test Directory([facility]).This test was developed and its performance characteristicsdetermined by [employer]. It has not been cleared orapproved by the [place] Food and Drug Administration. This test wasperformed in a CLIA certified laboratory and is intended forclinical purposes.Performed By: [facility] [id number] [place], [place] [id number] Director: Matt Rodriguez MD, PhDCLIA Number: [id number] Performed By: #### B HCG ####[facility] HOSPITALIA [id number] [place] [address] CBC W Auto Differential pane l (Bld)on 04-19-2024 Basophils (Bld) [#/Vol] 0.05 10*3/uL [facility] Basophils/100 WBC (Bld) 1.1 % C [facility] Differential cell count method Nom (Bld) Auto [facility] Eosinophils (Bld) [#/Vol] 0.21 10*3/uL [facility] Eosinophils/100 WBC (Bld) 4.7 % [facility] Erythrocyte distribution width (RBC) [Ratio] 15.6 % High 11.5 - 15.0 % [facility] Hematocrit (Bld) [Volume fraction] 35.7 % Low 39.0 - 51.0 % [facility] Hemoglobin (Bld) [Mass/Vol] 12.0 g/dL Low 13.0 - 17.0 g/dL [facility] Immature granulocytes (Bld) [#/Vol] [facility] Immature granulocytes/100 WBC (Bld) 0.2 % [facility] Interpretation and review of laboratory results Abnormal [facility] Lymphocytes (Bld) [#/Vol] 0.56 10*3/uL Low [facility] Lymphocytes/100 WBC (Bld) 12.4 % [facility] MCH (RBC) [Entitic mass] 29.2 pg 26.0 - 34.0 pg [facility] MCHC (RBC) [Mass/Vol] 33.6 g/dL 30.5 - 36.0 g/dL [facility] MCV (RBC) [Entitic vol] 86.9 fL 80.0 - 100.0 fL [facility] Monocytes (Bld) [#/Vol] 0.60 10*3/uL [facility] Monocytes/100 WBC (Bld) 13.3 % C [facility] Neutrophils (Bld) [#/Vol] 3.08 10*3/uL [facility] Neutrophils/100 WBC (Bld) 68.3 % [facility] Nucleated RBC (Bld) [#/Vol] NINF [facility] Nucleated RBC/100 WBC (Bld) [Ratio] 0.0 % /100 WBC [facility] Platelet mean volume (Bld) [Entitic vol] 8.7 fL Low 9.0 - 12.7 fL [facility] Platelets (Bld) [#/Vol] 172 10*3/uL [facility] RBC (Bld) [#/Vol] 4.11 10*6/uL Low 4.20 - 6.0 0 m/uL [facility] WBC (Bld) [#/Vol] 4.51 10*3/uL [facility] Basophils (Bld) [#/Vol] 0.05 10*3/uL Normal <0.11 [facility] Comment on above: Order Comment: Speci men Type: BLOOD SPECIMENOrdering Facility: [facility] Address: [address] [place] [address] Performed By: #### 5 7021-8 ####[facility] [id number] [place] [address] [place] Basophils/100 WBC (Bld) 1.1 % Normal C [facility] Comment on above: Order Comment: Speci men Type: BLOOD SPECIMENOrdering Facility: [facility] Address: [address] [place] [address] Performed By: #### 5 7021-8 ####[facility] [id number] [place] [address] [place] Differential cell count method Nom (Bld) Auto Normal [facility] Comment on above: Order Comment: Speci men Type: BLOOD SPECIMENOrdering Facility: [facility] Address: [address] [place] [address] Performed By: #### 5 7021-8 ####[facility] [id number] [place] [address] [place] Eosinophils (Bld) [#/Vol] 0.21 10*3/uL Normal <0.46 [facility] Comment on above: Order Comment: Speci men Type: BLOOD SPECIMENOrdering Facility: [facility] Address: [address] [place] [address] Performed By: #### 5 7021-8 ####[facility] [id number] [place] [address] [place] Eosinophils/100 WBC (Bld) 4.7 % Normal [facility] Comment on above: Order Comment: Speci men Type: BLOOD SPECIMENOrdering Facility: [facility] Address: [address] [place] [address] Performed By: #### 5 7021-8 ####[facility] [id number] [place] [address] [place] Erythrocyte distribution width (RBC) [Ratio] 15.6 % High 11.5-15.0 [facility] Comment on above: Order Comment: Speci men Type: BLOOD SPECIMENOrdering Facility: [facility] Address: [address] [place] [address] Performed By: #### 5 7021-8 ####[facility] [id number] [place] [address] [place] Hematocrit (Bld) [Volume fraction] 35.7 % Low 39.0-51.0 [facility] Comment on above: Order Comment: Speci men Type: BLOOD SPECIMENOrdering Facility: [facility] Address: [address] [place] [address] Performed By: #### 5 7021-8 ####[facility] [id number] [place] [address] [place] Hemoglobin (Bld) [Mass/Vol] 12.0 g/dL Low 13.0-17.0 [facility] Comment on above: Order Comment: Speci men Type: BLOOD SPECIMENOrdering Facility: [facility] Address: [address] [place] [address] Performed By: #### 5 7021-8 ####[facility] [id number] [place] [address] [place] Immature granulocytes (Bld) [#/Vol] 10*3/uL Normal <0.10 [facility] Comment on above: Order Comment: Speci men Type: BLOOD SPECIMENOrdering Facility: [facility] Address: [address] [place] [address] Performed By: #### 5 7021-8 ####[facility] [id number] [place] [address] [place] Immature granulocytes/100 WBC (Bld) 0.2 % Normal [facility] Comment on above: Order Comment: Speci men Type: BLOOD SPECIMENOrdering Facility: [facility] Address: [address] [place] [address] Performed By: #### 5 7021-8 ####[facility] [id number] [place] [address] [place] Lymphocytes (Bld) [#/Vol] 0.56 10*3/uL Low 1.00-4.00 [facility] Comment on above: Order Comment: Speci men Type: BLOOD SPECIMENOrdering Facility: [facility] Address: [address] [place] [address] Performed By: #### 5 7021-8 ####[facility] [id number] [place] [address] [place] Lymphocytes/100 WBC (Bld) 12.4 % Normal [facility] Comment on above: Order Comment: Speci men Type: BLOOD SPECIMENOrdering Facility: [facility] Address: [address] [place] [address] Performed By: #### 5 7021-8 ####[facility] [id number] [place] [address] [place] MCH (RBC) [Entitic mass] 29.2 pg Normal 26.0-34.0 [facility] Comment on above: Order Comment: Speci men Type: BLOOD SPECIMENOrdering Facility: [facility] Address: [address] [place] [address] Performed By: #### 5 7021-8 ####[facility] [id number] [place] [address] [place] MCHC (RBC) [Mass/Vol] 33.6 g/dL Normal 30.5-36.0 [facility] Comment on above: Order Comment: Speci men Type: BLOOD SPECIMENOrdering Facility: [facility] Address: [address] [place] [address] Performed By: #### 5 7021-8 ####[facility] [id number] [place] [address] [place] MCV (RBC) [Entitic vol] 86.9 fL Normal 80.0-100.0 C [facility] Comment on above: Order Comment: Speci men Type: BLOOD SPECIMENOrdering Facility: [facility] Address: [address] [place] [address] Performed By: #### 5 7021-8 ####[facility] [id number] [place] [address] [place] Monocytes (Bld) [#/Vol] 0.60 10*3/uL Normal <0.87 [facility] Comment on above: Order Comment: Speci men Type: BLOOD SPECIMENOrdering Facility: [facility] Address: [address] [place] [address] Performed By: #### 5 7021-8 ####[facility] [id number] [place] [address] [place] Monocytes/100 WBC (Bld) 13.3 % Normal C [facility] Comment on above: Order Comment: Speci men Type: BLOOD SPECIMENOrdering Facility: [facility] Address: [address] [place] [address] Performed By: #### 5 7021-8 ####[facility] [id number] [place] [address] [place] Neutrophils (Bld) [#/Vol] 3.08 10*3/uL Normal 1.45-7.50 [facility] Comment on above: Order Comment: Speci men Type: BLOOD SPECIMENOrdering Facility: [facility] Address: [address] [place] [address] Performed By: #### 5 7021-8 ####[facility] [id number] [place] [address] [place] Neutrophils/100 WBC (Bld) 68.3 % Normal [facility] Comment on above: Order Comment: Speci men Type: BLOOD SPECIMENOrdering Facility: [facility] Address: [address] [place] [address] Performed By: #### 5 7021-8 ####[facility] [id number] [place] [address] [place] Nucleated RBC (Bld) [#/Vol] 10*3/uL Normal <0.01 [facility] Comment on above: Order Comment: Speci men Type: BLOOD SPECIMENOrdering Facility: [facility] Address: [address] [place] [address] Performed By: #### 5 7021-8 ####[facility] [id number] [place] [address] [place] Nucleated RBC/100 WBC (Bld) [Ratio] 0.0 /100 WBC Normal [facility] Comment on above: Order Comment: Speci men Type: BLOOD SPECIMENOrdering Facility: [facility] Address: [address] [place] [address] Performed By: #### 5 7021-8 ####[facility] [id number] [place] [address] [place] Platelet mean volume (Bld) [Entitic vol] 8.7 fL Low 9.0-12.7 [facility] Comment on above: Order Comment: Speci men Type: BLOOD SPECIMENOrdering Facility: [facility] Address: [address] [place] [address] Performed By: #### 5 7021-8 ####[facility] [id number] [place] [address] [place] Platelets (Bld) [#/Vol] 172 10*3/uL Normal 150-400 [facility] Comment on above: Order Comment: Speci men Type: BLOOD SPECIMENOrdering Facility: [facility] Address: [address] [place] [address] Performed By: #### 5 7021-8 ####[facility] [id number] [place] [address] [place] RBC (Bld) [#/Vol] 4.11 10*6/uL Low 4.20-6.00 [facility] Comment on above: Order Comment: Speci men Type: BLOOD SPECIMENOrdering Facility: [facility] Address: [address] [place] [address] Performed By: #### 5 7021-8 ####[facility] [id number] [place] [address] [place] WBC (Bld) [#/Vol] 4.51 10*3/uL Normal 3.70-11.00 [facility] Comment on above: Order Comment: Speci men Type: BLOOD SPECIMENOrdering Facility: [facility] Address: [address] [place] [address] Performed By: #### 5 7021-8 ####[facility] [id number] [place] [address] [place] CNOVSPon 04-19-2024 CNOVSP Normal [facility] Comprehensive metabolic 2000 panelon 04-19-2024 Albumin [Mass/Vol] 4.4 g/dL 3.9 - 4.9 g/dL [facility] ALP [Catalytic activity/Vol] 158 U/L High 38 - 113 U/L [facility] ALT [Catalytic activity/Vol] 15 U/L 10 - 54 U/L [facility] Anion gap [Moles/Vol] 13 mmol/L 9 - 18 mmol/L [facility] AST [Catalytic activity/Vol] 17 U/L 14 - 40 U/L [facility] Bilirubin [Mass/Vol] 0.2 mg/dL 0.2 - 1 .3 mg/dL [facility] Calcium [Mass/Vol] 10.3 mg/dL High 8.5 - 10. 2 mg/dL [facility] Chloride [Moles/Vol] 101 mmol/L 97 - 10 5 mmol/L [facility] CO2 [Moles/Vol] 26 mmol/L 22 - 30 mmol/L [facility] Creatinine [Mass/Vol] 2.81 mg/dL High 0.73 - 1.22 mg/dL [facility] GFR/1.73 sq M.predicted among non-blacks MDRD (S/P/Bld) [Vol rate/Area] 29 mL/min/{1.73_m2} Low - PINF [facility] Comment on above: Estimated Glomerular Filtration Rate (eGFR) is calculated using the 2020 CKD-EPI creatinine equation. This equation utilizes serum creatinine, sex, and age as parameters. The creatinine assay has traceable calibration to isotope dilution-mass spectrometry. Refer to KDIGO guidelines for clinical interpretation. In patients with unstable renal function, e.g. those with acute kidney injury, the eGFR may not accurately reflect actual GFR. Glucose [Mass/Vol] 94 mg/dL 74 - 99 mg/dL [facility] Comment on above: The [place] Diabete s Association (ADA) provides guidance for cutoff values for fasting glucose and random glucose. The ADA defines fasting as no caloric intake for at least 8 hours. Fasting plasma glucose results between 100 to 125 mg/dL indicate increased risk for diabetes (prediabetes). Fasting plasma glucose results greater than or equal to 126 mg/dL meet the criteria for diagnosis of diabetes. In the absence of unequivocal hyperglycemia, results should be confirmed by repeat testing. In a patient with classic symptoms of hyperglycemia or hyperglycemic crisis, random plasma glucose results greater than or equal to 200 mg/dL meet the criteria for diagnosis of diabetes. Reference: Standards of Medical Care in Diabetes 2016, [place] [employer]. Diabetes Care. 2016.39(Suppl 1). Interpretation and review of laboratory results Abnormal [facility] Potassium [Moles/Vol] 3.8 mmol/L 3.7 - 5.1 mmol/L [facility] Protein [Mass/Vol] 7.1 g/dL 6.3 - 8.0 g/dL [facility] Sodium [Moles/Vol] 140 mmol/L 136 - 144 mmol/L [facility] Urea nitrogen [Mass/Vol] 32 mg/dL High 9 - 24 mg/dL [facility] Albumin [Mass/Vol] 4.4 g/dL Normal 3.9-4.9 [facility] Comment on above: Order Comment: Speci men Type: BLOOD SPECIMENOrdering Facility: [facility] Address: [address] [place] [address] Performed By: #### 1 9123-9, 98387-5 ####[facility] [id number] [place] [address] [place] ALP [Catalytic activity/Vol] 158 U/L High 38-113 [facility] Comment on above: Order Comment: Erini men Type: BLOOD SPECIMENOrdering Facility: [facility] Address: [address] [place] [address] Performed By: #### 1 9123-9, 70322-1 ####[facility] [id number] [place] [address] [place] ALT [Catalytic activity/Vol] 15 U/L Normal 10-54 [facility] Comment on above: Order Comment: Speci men Type: BLOOD SPECIMENOrdering Facility: [facility] Address: [address] [place] [address] Performed By: #### 1 9123-9, 77732-1 ####[facility] [id number] [place] [address] [place] Anion gap [Moles/Vol] 13 mmol/L Normal 9-18 [facility] Comment on above: Order Comment: Speci men Type: BLOOD SPECIMENOrdering Facility: [facility] Address: [address] [place] [address] Performed By: #### 1 9123-9, 11758-2 ####[facility] [id number] [place] [address] [place] AST [Catalytic activity/Vol] 17 U/L Normal 14-40 [facility] Comment on above: Order Comment: Speci men Type: BLOOD SPECIMENOrdering Facility: [facility] Address: [address] [place] [address] Performed By: #### 1 9123-9, 79525-5 ####[facility] [id number] [place] [address] [place] Bilirubin [Mass/Vol] 0.2 mg/dL Normal 0.2-1.3 [facility] Comment on above: Order Comment: Speci men Type: BLOOD SPECIMENOrdering Facility: [facility] Address: [address] [place] [address] Performed By: #### 1 9123-9, 58861-4 ####[facility] [id number] [place] [address] [place] Calcium [Mass/Vol] 10.3 mg/dL High 8.5-10.2 [facility] Comment on above: Order Comment: Speci men Type: BLOOD SPECIMENOrdering Facility: [facility] Address: [address] [place] [address] Performed By: #### 1 9123-9, 87760-8 ####[facility] [id number] [place] [address] [place] Chloride [Moles/Vol] 101 mmol/L Normal 97-105 [facility] Comment on above: Order Comment: Speci men Type: BLOOD SPECIMENOrdering Facility: [facility] Address: [address] [place] [address] Performed By: #### 1 9123-9, 62948-0 ####[facility] [id number] [place] [address] [place] CO2 [Moles/Vol] 26 mmol/L Normal 22-30 [facility] Comment on above: Order Comment: Speci men Type: BLOOD SPECIMENOrdering Facility: [facility] Address: [address] [place] [address] Performed By: #### 1 9123-9, 22232-6 ####[facility] [id number] [place] [address] [place] Creatinine [Mass/Vol] 2.81 mg/dL High 0.73-1.22 [facility] Comment on above: Order Comment: Speci men Type: BLOOD SPECIMENOrdering Facility: [facility] Address: [address] [place] [address] Performed By: #### 1 9123-9, 56309-2 ####[facility] [id number] [place] [address] [place] Creatinine and Glomerular filtration rate.predicted panel (S/P/Bld) 29 mL/min/1.73m??? Low >=60 [facility] Comment on above: Order Comment: Speci men Type: BLOOD SPECIMENOrdering Facility: [facility] Address: [address] [place] [address] Result Comment: Elba mated Glomerular Filtration Rate (eGFR) is calculated using the 2020 CKD-EPI creatinine equation. This equation utilizes serum creatinine, sex, and age as parameters. The creatinine assay has traceable calibration to isotope dilution-mass spectrometry. Refer to KDIGO guidelines for clinical interpretation. In patients with unstable renal function, e.g. those with acute kidney injury, the eGFR may not accurately reflect actual GFR. Performed By: #### 1 9123-9, 33556-6 ####[facility] [id number] [place] [address] [place] Glucose [Mass/Vol] 94 mg/dL Normal 74-99 [facility] Comment on above: Order Comment: Speci men Type: BLOOD SPECIMENOrdering Facility: [facility] Address: [address] [place] [address] Result Comment: The [place] Diabetes Association (ADA) provides guidance for cutoff values for fasting glucose and random glucose. The ADA defines fasting as no caloric intake for at least 8 hours. Fasting plasma glucose results between 100 to 125 mg/dL indicate increased risk for diabetes (prediabetes).Fasting plasma glucose results greater than or equal to 126 mg/dL meet the criteria for diagnosis of diabetes. In the absence of unequivocal hyperglycemia, results should be confirmed by repeat testing. In a patient with classic symptoms of hyperglycemia or hyperglycemic crisis, random plasma glucose results greater than or equal to 200 mg/dL meet the criteria for diagnosis of diabetes.Reference: Standards of Medical Care in Diabetes 2016, [place] [employer]. Diabetes Care. 2016.39(Suppl 1). Performed By: #### 1 9123-9, 36566-3 ####[facility] [id number] [place] [address] [place] Potassium [Moles/Vol] 3.8 mmol/L Normal 3.7-5.1 [facility] Comment on above: Order Comment: Ellen hatch Type: BLOOD SPECIMENOrdering Facility: [facility] Address: [address] [place] [address] Performed By: #### 1 9123-9, 93684-2 ####[facility] [id number] [place] [address] [place] Protein [Mass/Vol] 7.1 g/dL Normal 6.3-8.0 [facility] Comment on above: Order Comment: Ellen hatch Type: BLOOD SPECIMENOrdering Facility: [facility] Address: [address] [place] [address] Performed By: #### 1 9123-9, 67897-1 ####[facility] [id number] [place] [address] [place] Sodium [Moles/Vol] 140 mmol/L Normal 136-144 [facility] Comment on above: Order Comment: Speci men Type: BLOOD SPECIMENOrdering Facility: [facility] Address: [address] [place] [address] Performed By: #### 1 9123-9, 30529-6 ####[facility] [id number] [place] [address] [place] Urea nitrogen [Mass/Vol] 32 mg/dL High 9-24 [facility] Comment on above: Order Comment: Speci men Type: BLOOD SPECIMENOrdering Facility: [facility] Address: [address] [place] [address] Performed By: #### 1 9123-9, 07847-9 ####[facility] [id number] [place] [address] [place] LD LACTATE DEHYDROon 024 LDH [Catalytic activity/Vol] 178 U/L 135 - 225 U/L [facility] LDH SerPl-cCncon 04-19-2024 LDH [Catalytic activity/Vol] 178 U/L Normal 135-225 [facility] Comment on above: Order Comment: Speci men Type: BLOOD SPECIMENOrdering Facility: [facility] Address: [address] [place] [address] Performed By: #### 2 532-0 ####[facility] [id number] [place] [address] [place] LDH [Catalytic activity/Vol] on 04-19-2024 Interpretation and review of laboratory results Normal [facility] MAGNESIUM BLDon 04-19-2024 Magnesium [Mass/Vol] 2.0 mg/dL 1.7 - 2 .3 mg/dL [facility] Magnesium SerPl-mCncon 04-19 Magnesium [Mass/Vol] 2.0 mg/dL Normal 1.7-2.3 [facility] Comment on above: Order Comment: Speci men Type: BLOOD SPECIMENOrdering Facility: [facility] Address: [address] [place] [address] Performed By: #### 1 9123-9, 41692-5 ####[facility] [id number] [place] [address] [place] Magnesium [Mass/Vol]on 04-19 Interpretation and review of laboratory results Normal [facility] No Panel Informationon 04-19 [facility] CNPNon 04-18-2024 CNPN Normal [facility] CNPNon 04-16-2024 CNPN Normal [facility] Basic metabolic 2000 panelOr dered By: Lesley Ramirez on 04-15-2024 Anion gap [Moles/Vol] 10 mmol/L 9 - 18 mmol/L [facility] Calcium [Mass/Vol] 10.7 mg/dL High 8.5 - 10. 2 mg/dL [facility] Chloride [Moles/Vol] 103 mmol/L 97 - 10 5 mmol/L [facility] CO2 [Moles/Vol] 25 mmol/L 22 - 30 mmol/L [facility] Creatinine [Mass/Vol] 2.69 mg/dL High 0.73 - 1.22 mg/dL [facility] GFR/1.73 sq M.predicted among non-blacks MDRD (S/P/Bld) [Vol rate/Area] 31 mL/min/{1.73_m2} Low - PINF [facility] Comment on above: Estimated Glomerular Filtration Rate (eGFR) is calculated using the 2020 CKD-EPI creatinine equation. This equation utilizes serum creatinine, sex, and age as parameters. The creatinine assay has traceable calibration to isotope dilution-mass spectrometry. Refer to KDIGO guidelines for clinical interpretation. In patients with unstable renal function, e.g. those with acute kidney injury, the eGFR may not accurately reflect actual GFR. Glucose [Mass/Vol] 90 mg/dL 74 - 99 mg/dL [facility] Comment on above: The [place] Diabete s Association (ADA) provides guidance for cutoff values for fasting glucose and random glucose. The ADA defines fasting as no caloric intake for at least 8 hours. Fasting plasma glucose results between 100 to 125 mg/dL indicate increased risk for diabetes (prediabetes). Fasting plasma glucose results greater than or equal to 126 mg/dL meet the criteria for diagnosis of diabetes. In the absence of unequivocal hyperglycemia, results should be confirmed by repeat testing. In a patient with classic symptoms of hyperglycemia or hyperglycemic crisis, random plasma glucose results greater than or equal to 200 mg/dL meet the criteria for diagnosis of diabetes. Reference: Standards of Medical Care in Diabetes 2016, [place] [employer]. Diabetes Care. 2016.39(Suppl 1). Interpretation and review of laboratory results Abnormal [facility] Potassium [Moles/Vol] 4.1 mmol/L 3.7 - 5.1 mmol/L [facility] Sodium [Moles/Vol] 138 mmol/L 136 - 144 mmol/L [facility] Urea nitrogen [Mass/Vol] 39 mg/dL High 9 - 24 mg/dL [facility] Basic metabolic 2000 panelon 04-15-2024 Anion gap [Moles/Vol] 10 mmol/L Normal 9-18 [facility] Comment on above: Order Comment: Speci mamie Type: BLOOD SPECIMENOrdering Facility: [facility] Address: [address] [place] [address] Performed By: #### 2 4321-2 ####[facility] [id number] [place] [address] [place] Calcium [Mass/Vol] 10.7 mg/dL High 8.5-10.2 [facility] Comment on above: Order Comment: Ellen hatch Type: BLOOD SPECIMENOrdering Facility: [facility] Address: [address] [place] [address] Performed By: #### 2 4321-2 ####[facility] CITYWNCLIA [id number] [place] [address] [place] Chloride [Moles/Vol] 103 mmol/L Normal 97-105 [facility] Comment on above: Order Comment: Erini mamie Type: BLOOD SPECIMENOrdering Facility: [facility] Address: [address] [place] [address] Performed By: #### 2 4321-2 ####[facility]ITALL[facility] [id number] [place] [address] [place] CO2 [Moles/Vol] 25 mmol/L Normal 22-30 [facility] Comment on above: Order Comment: Erini men Type: BLOOD SPECIMENOrdering Facility: [facility] Address: [address] [place] [address] Performed By: #### 2 4321-2 ####[facility] HOS[facility]ITALLI [id number] [place] [address] [place] Creatinine [Mass/Vol] 2.69 mg/dL High 0.73-1.22 [facility] Comment on above: Order Comment: Erini men Type: BLOOD SPECIMENOrdering Facility: [facility] Address: [address] [place] [address] Performed By: #### 2 4321-2 ####[facility] [id number] [place] [address] [place] Creatinine and Glomerular filtration rate.predicted panel (S/P/Bld) 31 mL/min/1.73m??? Low >=60 [facility] Comment on above: Order Comment: Ellen hatch Type: BLOOD SPECIMENOrdering Facility: [facility] Address: [address] [place] [address] Result Comment: Elba mated Glomerular Filtration Rate (eGFR) is calculated using the 2020 CKD-EPI creatinine equation. This equation utilizes serum creatinine, sex, and age as parameters. The creatinine assay has traceable calibration to isotope dilution-mass spectrometry. Refer to KDIGO guidelines for clinical interpretation. In patients with unstable renal function, e.g. those with acute kidney injury, the eGFR may not accurately reflect actual GFR. Performed By: #### 2 4321-2 ####[facility]ITALNCLIA [id number] [place] [address] [place] Glucose [Mass/Vol] 90 mg/dL Normal 74-99 [facility] Comment on above: Order Comment: Erini men Type: BLOOD SPECIMENOrdering Facility: [facility] Address: [address] [id number] Result Comment: The [place] Diabetes Association (ADA) provides guidance for cutoff values for fasting glucose and random glucose. The ADA defines fasting as no caloric intake for at least 8 hours. Fasting plasma glucose results between 100 to 125 mg/dL indicate increased risk for diabetes (prediabetes).Fasting plasma glucose results greater than or equal to 126 mg/dL meet the criteria for diagnosis of diabetes. In the absence of unequivocal hyperglycemia, results should be confirmed by repeat testing. In a patient with classic symptoms of hyperglycemia or hyperglycemic crisis, random plasma glucose results greater than or equal to 200 mg/dL meet the criteria for diagnosis of diabetes.Reference: Standards of Medical Care in Diabetes 2016, [place] [employer]. Diabetes Care. 2016.39(Suppl 1). Performed By: #### 2 4321-2 ####[facility] HOSPITALHALLIEHuyen [id number] [place] [address] [place] Potassium [Moles/Vol] 4.1 mmol/L Normal 3.7-5.1 [facility] Comment on above: Order Comment: Speci men Type: BLOOD SPECIMENOrdering Facility: [facility] Address: [address] [id number] Performed By: #### 2 4321-2 ####[facility]ERGENCYHuyen [id number] [place] [address] [place] [place] Sodium [Moles/Vol] 138 mmol/L Normal 136-144 [facility] Comment on above: Order Comment: Speci men Type: BLOOD SPECIMENOrdering Facility: [facility] Address: [address] [id number] Performed By: #### 2 4321-2 ####[facility] [id number] [place] [address] [place] Urea nitrogen [Mass/Vol] 39 mg/dL High 9-24 [facility] Comment on above: Order Comment: Speci men Type: BLOOD SPECIMENOrdering Facility: [facility] Address: [address] [id number] Performed By: #### 2 4321-2 ####[facility] [id number] [place] [address] [place] CBC W Auto Differential pane l (Bld)on 04-15-2024 Basophils (Bld) [#/Vol] 0.04 10*3/uL [facility] Basophils/100 WBC (Bld) 0.9 % C [facility] Differential cell count method Nom (Bld) Auto [facility] Eosinophils (Bld) [#/Vol] 0.23 10*3/uL [facility] Eosinophils/100 WBC (Bld) 5.0 % [facility] Erythrocyte distribution width (RBC) [Ratio] 15.0 % 11.5 - 15.0 % [facility] Hematocrit (Bld) [Volume fraction] 38.0 % Low 39.0 - 51.0 % [facility] Hemoglobin (Bld) [Mass/Vol] 12.4 g/dL Low 13.0 - 17.0 g/dL [facility] Immature granulocytes (Bld) [#/Vol] [facility] Immature granulocytes/100 WBC (Bld) 0.2 % [facility] Interpretation and review of laboratory results Abnormal [facility] Lymphocytes (Bld) [#/Vol] 0.72 10*3/uL Low [facility] Lymphocytes/100 WBC (Bld) 15.7 % [facility] MCH (RBC) [Entitic mass] 28.6 pg 26.0 - 34.0 pg [facility] MCHC (RBC) [Mass/Vol] 32.6 g/dL 30.5 - 36.0 g/dL [facility] MCV (RBC) [Entitic vol] 87.6 fL 80.0 - 100.0 fL [facility] Monocytes (Bld) [#/Vol] 0.51 10*3/uL [facility] Monocytes/100 WBC (Bld) 11.1 % C [facility] Neutrophils (Bld) [#/Vol] 3.08 10*3/uL [facility] Neutrophils/100 WBC (Bld) 67.1 % [facility] Nucleated RBC (Bld) [#/Vol] [facility] Nucleated RBC/100 WBC (Bld) [Ratio] 0.0 % /100 WBC [facility] Platelet mean volume (Bld) [Entitic vol] 8.4 fL Low 9.0 - 12.7 fL [facility] Platelets (Bld) [#/Vol] 190 10*3/uL [facility] RBC (Bld) [#/Vol] 4.34 10*6/uL 4.20 - 6.0 0 m/uL [facility] WBC (Bld) [#/Vol] 4.59 10*3/uL [facility] Basophils (Bld) [#/Vol] 0.04 10*3/uL Normal <0.11 [facility] Comment on above: Order Comment: Speci men Type: BLOOD SPECIMENOrdering Facility: [facility] Address: [address] [place] [address] Performed By: #### 5 7021-8 ####[facility] [id number] [place] [address] [place] Basophils/100 WBC (Bld) 0.9 % Normal C [facility] Comment on above: Order Comment: Speci men Type: BLOOD SPECIMENOrdering Facility: [facility] Address: [address] [place] [address] Performed By: #### 5 7021-8 ####[facility] [id number] [place] [address] [place] Differential cell count method Nom (Bld) Auto Normal [facility] Comment on above: Order Comment: Speci men Type: BLOOD SPECIMENOrdering Facility: [facility] Address: [address] [place] [address] Performed By: #### 5 7021-8 ####[facility] [id number] [place] [address] [place] Eosinophils (Bld) [#/Vol] 0.23 10*3/uL Normal <0.46 [facility] Comment on above: Order Comment: Speci men Type: BLOOD SPECIMENOrdering Facility: [facility] Address: [address] [place] [address] Performed By: #### 5 7021-8 ####[facility] AZRAWHALLIELIA [id number] [place] [address] [place] Eosinophils/100 WBC (Bld) 5.0 % Normal [facility] Comment on above: Order Comment: Speci men Type: BLOOD SPECIMENOrdering Facility: [facility] Address: [address] [place] [address] Performed By: #### 5 7021-8 ####[facility]ITALNCLIA [id number] [place] [address] [place] Erythrocyte distribution width (RBC) [Ratio] 15.0 % Normal 11.5-15.0 [facility] Comment on above: Order Comment: Speci men Type: BLOOD SPECIMENOrdering Facility: [facility] Address: [address] [place] [address] Performed By: #### 5 7021-8 ####[facility] HOSPITALLIA [id number] [place] [address] [place] Hematocrit (Bld) [Volume fraction] 38.0 % Low 39.0-51.0 [facility] Comment on above: Order Comment: Speci men Type: BLOOD SPECIMENOrdering Facility: [facility] Address: [address] [place] [address] Performed By: #### 5 7021-8 ####[facility]ITALNCLIA [id number] [place] [address] [place] Hemoglobin (Bld) [Mass/Vol] 12.4 g/dL Low 13.0-17.0 [facility] Comment on above: Order Comment: Speci men Type: BLOOD SPECIMENOrdering Facility: [facility] Address: [address] [place] [address] Performed By: #### 5 7021-8 ####[facility] HOSPITALLIA [id number] [place] [address] [place] Immature granulocytes (Bld) [#/Vol] 10*3/uL Normal <0.10 [facility] Comment on above: Order Comment: Speci men Type: BLOOD SPECIMENOrdering Facility: [facility] Address: [address] [place] [address] Performed By: #### 5 7021-8 ####[facility] MILLWNCLIA [id number] [place] [address] [place] Immature granulocytes/100 WBC (Bld) 0.2 % Normal [facility] Comment on above: Order Comment: Speci men Type: BLOOD SPECIMENOrdering Facility: [facility] Address: [address] [place] [address] Performed By: #### 5 7021-8 ####[facility] HOSPITALHALLIELIA [id number] [place] [address] [place] Lymphocytes (Bld) [#/Vol] 0.72 10*3/uL Low 1.00-4.00 [facility] Comment on above: Order Comment: Speci men Type: BLOOD SPECIMENOrdering Facility: [facility] Address: [address] [place] [address] Performed By: #### 5 7021-8 ####[facility] HOSPITALLIA [id number] [place] [address] [place] Lymphocytes/100 WBC (Bld) 15.7 % Normal [facility] Comment on above: Order Comment: Speci men Type: BLOOD SPECIMENOrdering Facility: [facility] Address: [address] [place] [address] Performed By: #### 5 7021-8 ####[facility]PITALNCLIA [id number] [place] [address] [place] MCH (RBC) [Entitic mass] 28.6 pg Normal 26.0-34.0 [facility] Comment on above: Order Comment: Speci men Type: BLOOD SPECIMENOrdering Facility: [facility] Address: [address] [place] [address] Performed By: #### 5 7021-8 ####[facility] LEON ONESIMONCSELENA [id number] [place] [address] [place] MCHC (RBC) [Mass/Vol] 32.6 g/dL Normal 30.5-36.0 [facility] Comment on above: Order Comment: Speci men Type: BLOOD SPECIMENOrdering Facility: [facility] Address: [address] [place], [place] [address] Performed By: #### 5 7021-8 ####[facility]PITALNCLIA [id number] [place] [address] [place] MCV (RBC) [Entitic vol] 87.6 fL Normal 80.0-100.0 C [facility] Comment on above: Order Comment: Speci men Type: BLOOD SPECIMENOrdering Facility: [facility] Address: [address] [place], [place] [address] Performed By: #### 5 7021-8 ####[facility]OSPITALNCLIA [id number] [place] [address] [place] Monocytes (Bld) [#/Vol] 0.51 10*3/uL Normal <0.87 [facility] Comment on above: Order Comment: Speci men Type: BLOOD SPECIMENOrdering Facility: [facility] Address: [address] [place] [address] Performed By: #### 5 7021-8 ####[facility]ITALNCLIA [id number] [address] [place] Monocytes/100 WBC (Bld) 11.1 % Normal C [facility] Comment on above: Order Comment: Speci men Type: BLOOD SPECIMENOrdering Facility: [facility] Address: [address] [place] [address] Performed By: #### 5 7021-8 ####[facility] MILLTOWNCLIA [id number] [place] [address] [place] Neutrophils (Bld) [#/Vol] 3.08 10*3/uL Normal 1.45-7.50 [facility] Comment on above: Order Comment: Speci men Type: BLOOD SPECIMENOrdering Facility: [facility] Address: [address] [place] [address] Performed By: #### 5 7021-8 ####[facility]OSPITALNCLIA [id number] [place] [address] [place] Neutrophils/100 WBC (Bld) 67.1 % Normal [facility] Comment on above: Order Comment: Speci men Type: BLOOD SPECIMENOrdering Facility: [facility] Address: [address] [place] [address] Performed By: #### 5 7021-8 ####[facility] HOSPITALLIA [id number] [place] [address] [place] Nucleated RBC (Bld) [#/Vol] 10*3/uL Normal <0.01 [facility] Comment on above: Order Comment: Speci men Type: BLOOD SPECIMENOrdering Facility: [facility] Address: [address] [place] [address] Performed By: #### 5 7021-8 ####[facility] CITYWNCLIA [id number] [place] [address] [place] Nucleated RBC/100 WBC (Bld) [Ratio] 0.0 /100 WBC Normal [facility] Comment on above: Order Comment: Speci men Type: BLOOD SPECIMENOrdering Facility: [facility] Address: [address] [place] [address] Performed By: #### 5 7021-8 ####[facility] HOSPITALLIA [id number] [place] [address] [place] Platelet mean volume (Bld) [Entitic vol] 8.4 fL Low 9.0-12.7 [facility] Comment on above: Order Comment: Speci men Type: BLOOD SPECIMENOrdering Facility: [facility] Address: [address] [place] [address] Performed By: #### 5 7021-8 ####[facility] AZRAFUNMILAYOA [id number] [place] [address] [place] Platelets (Bld) [#/Vol] 190 10*3/uL Normal 150-400 [facility] Comment on above: Order Comment: Speci men Type: BLOOD SPECIMENOrdering Facility: [facility] Address: [address] [place] [address] Performed By: #### 5 7021-8 ####[facility] HOSPITALNCSELENA [id number] [place] [address] [place] RBC (Bld) [#/Vol] 4.34 10*6/uL Normal 4.20-6.00 [facility] Comment on above: Order Comment: Speci men Type: BLOOD SPECIMENOrdering Facility: [facility] Address: [address] [place] [address] Performed By: #### 5 7021-8 ####[facility] HOSPITALHALLIELIA [id number] [place] [address] [place] WBC (Bld) [#/Vol] 4.59 10*3/uL Normal 3.70-11.00 [facility] Comment on above: Order Comment: Speci men Type: BLOOD SPECIMENOrdering Facility: [facility] Address: [address] [place] [address] Performed By: #### 5 7021-8 ####[facility] HOSPITALNCLIA [id number] [place] [address] [place] CNPNon 04-15-2024 CNPN Normal [facility] metabolic 2000 panelOrdered By: Fatou Cole on 04-08-2024 Albumin [Mass/Vol] 4.0 g/dL 3.9 - 4.9 g/dL [facility] ALP [Catalytic activity/Vol] 155 U/L High 38 - 113 U/L [facility] ALT [Catalytic activity/Vol] 14 U/L 10 - 54 U/L [facility] Anion gap [Moles/Vol] 10 mmol/L 9 - 18 mmol/L [facility] AST [Catalytic activity/Vol] 15 U/L 14 - 40 U/L [facility] Bilirubin [Mass/Vol] 0.2 mg/dL 0.2 - 1 .3 mg/dL [facility] Calcium [Mass/Vol] 10.6 mg/dL High 8.5 - 10. 2 mg/dL [facility] Chloride [Moles/Vol] 102 mmol/L 97 - 10 5 mmol/L [facility] CO2 [Moles/Vol] 24 mmol/L 22 - 30 mmol/L [facility] Creatinine [Mass/Vol] 2.58 mg/dL High 0.73 - 1.22 mg/dL [facility] GFR/1.73 sq M.predicted among non-blacks MDRD (S/P/Bld) [Vol rate/Area] 33 mL/min/{1.73_m2} Low - PINF [facility] Comment on above: Estimated Glomerular Filtration Rate (eGFR) is calculated using the 2020 CKD-EPI creatinine equation. This equation utilizes serum creatinine, sex, and age as parameters. The creatinine assay has traceable calibration to isotope dilution-mass spectrometry. Refer to KDIGO guidelines for clinical interpretation. In patients with unstable renal function, e.g. those with acute kidney injury, the eGFR may not accurately reflect actual GFR. Glucose [Mass/Vol] 86 mg/dL 74 - 99 mg/dL [facility] Comment on above: The [place] Diabete s Association (ADA) provides guidance for cutoff values for fasting glucose and random glucose. The ADA defines fasting as no caloric intake for at least 8 hours. Fasting plasma glucose results between 100 to 125 mg/dL indicate increased risk for diabetes (prediabetes). Fasting plasma glucose results greater than or equal to 126 mg/dL meet the criteria for diagnosis of diabetes. In the absence of unequivocal hyperglycemia, results should be confirmed by repeat testing. In a patient with classic symptoms of hyperglycemia or hyperglycemic crisis, random plasma glucose results greater than or equal to 200 mg/dL meet the criteria for diagnosis of diabetes. Reference: Standards of Medical Care in Diabetes 2016, [place] [employer]. Diabetes Care. 2016.39(Suppl 1). Interpretation and review of laboratory results Abnormal [facility] Potassium [Moles/Vol] 4.1 mmol/L 3.7 - 5.1 mmol/L [facility] Protein [Mass/Vol] 7.2 g/dL 6.3 - 8.0 g/dL [facility] Sodium [Moles/Vol] 136 mmol/L 136 - 144 mmol/L [facility] Urea nitrogen [Mass/Vol] 46 mg/dL High 9 - 24 mg/dL [facility] metabolic 2000 panelon 04-08-2024 Albumin [Mass/Vol] 4.0 g/dL Normal 3.9-4.9 [facility] Comment on above: Order Comment: Speci men Type: BLOOD SPECIMENOrdering Facility: [facility] Address: [address] [place] [address] Performed By: #### 2 4323-8 ####[facility] [id number] [place] [address] [place] ALP [Catalytic activity/Vol] 155 U/L High 38-113 [facility] Comment on above: Order Comment: Speci men Type: BLOOD SPECIMENOrdering Facility: [facility] Address: [address] [place] [address] Performed By: #### 2 4323-8 ####[facility] HOSPITALLIA [id number] [place] [address] [place] ALT [Catalytic activity/Vol] 14 U/L Normal 10-54 [facility] Comment on above: Order Comment: Speci men Type: BLOOD SPECIMENOrdering Facility: [facility] Address: [address] [place] [address] Performed By: #### 2 4323-8 ####[facility] [id number] [place] [address] [place] Anion gap [Moles/Vol] 10 mmol/L Normal 9-18 [facility] Comment on above: Order Comment: Speci men Type: BLOOD SPECIMENOrdering Facility: [facility] Address: [address] [place] [address] Performed By: #### 2 4323-8 ####[facility]ITALNCLIA [id number] [place] [address] [place] AST [Catalytic activity/Vol] 15 U/L Normal 14-40 [facility] Comment on above: Order Comment: Speci men Type: BLOOD SPECIMENOrdering Facility: [facility] Address: [address] [place] [address] Performed By: #### 2 4323-8 ####[facility]ITALNCCED[facility] [id number] [place] [address] [place] Bilirubin [Mass/Vol] 0.2 mg/dL Normal 0.2-1.3 [facility] Comment on above: Order Comment: Speci men Type: BLOOD SPECIMENOrdering Facility: [facility] Address: [address] [place] [address] Performed By: #### 2 4323-8 ####[facility]ITALNCLIA [id number] [place] [address] [place] Calcium [Mass/Vol] 10.6 mg/dL High 8.5-10.2 [facility] Comment on above: Order Comment: Speci men Type: BLOOD SPECIMENOrdering Facility: [facility] Address: [address] [place] [address] Performed By: #### 2 4323-8 ####[facility]PITALNCLIA [id number] [place] [address] [place] Chloride [Moles/Vol] 102 mmol/L Normal 97-105 [facility] Comment on above: Order Comment: Speci men Type: BLOOD SPECIMENOrdering Facility: [facility] Address: [address] [place] [address] Performed By: #### 2 4323-8 ####[facility] AZRAWNCLIA [id number] [place] [address] [place] CO2 [Moles/Vol] 24 mmol/L Normal 22-30 [facility] Comment on above: Order Comment: Speci men Type: BLOOD SPECIMENOrdering Facility: [facility] Address: [address] [place] [address] Performed By: #### 2 4323-8 ####[facility]ITALNCCED[facility] [id number] [place] [address] [place] Creatinine [Mass/Vol] 2.58 mg/dL High 0.73-1.22 [facility] Comment on above: Order Comment: Speci men Type: BLOOD SPECIMENOrdering Facility: [facility] Address: [address] [place] [address] Performed By: #### 2 4323-8 ####[facility]ITALNCLIA [id number] [address] [place] Creatinine and Glomerular filtration rate.predicted panel (S/P/Bld) 33 mL/min/1.73m??? Low >=60 [facility] Comment on above: Order Comment: Speci men Type: BLOOD SPECIMENOrdering Facility: [facility] Address: [address] [place] [address] Result Comment: Elba mated Glomerular Filtration Rate (eGFR) is calculated using the 2020 CKD-EPI creatinine equation. This equation utilizes serum creatinine, sex, and age as parameters. The creatinine assay has traceable calibration to isotope dilution-mass spectrometry. Refer to KDIGO guidelines for clinical interpretation. In patients with unstable renal function, e.g. those with acute kidney injury, the eGFR may not accurately reflect actual GFR. Performed By: #### 2 4323-8 ####[facility] CITYWNCLIA [id number] [place] [address] [place] Glucose [Mass/Vol] 86 mg/dL Normal 74-99 [facility] Comment on above: Order Comment: Speci men Type: BLOOD SPECIMENOrdering Facility: [facility] Address: [address] [place], [place] [address] Result Comment: The [place] Diabetes Association (ADA) provides guidance for cutoff values for fasting glucose and random glucose. The ADA defines fasting as no caloric intake for at least 8 hours. Fasting plasma glucose results between 100 to 125 mg/dL indicate increased risk for diabetes (prediabetes).Fasting plasma glucose results greater than or equal to 126 mg/dL meet the criteria for diagnosis of diabetes. In the absence of unequivocal hyperglycemia, results should be confirmed by repeat testing. In a patient with classic symptoms of hyperglycemia or hyperglycemic crisis, random plasma glucose results greater than or equal to 200 mg/dL meet the criteria for diagnosis of diabetes.Reference: Standards of Medical Care in Diabetes 2016, [place] [employer]. Diabetes Care. 2016.39(Suppl 1). Performed By: #### 2 4323-8 ####[facility] MILLTOWNCLIA [id number] [place] [address] [place] Potassium [Moles/Vol] 4.1 mmol/L Normal 3.7-5.1 [facility] Comment on above: Order Comment: Speci men Type: BLOOD SPECIMENOrdering Facility: [facility] Address: [address] [place] [address] Performed By: #### 2 4323-8 ####[facility] MILLTOWNCLIA [id number] [place] [address] [place] Protein [Mass/Vol] 7.2 g/dL Normal 6.3-8.0 [facility] Comment on above: Order Comment: Speci men Type: BLOOD SPECIMENOrdering Facility: [facility] Address: [address] [place], [place] [address] Performed By: #### 2 4323-8 ####[facility] CITYWNCLIA [id number] [place] [address] [place] Sodium [Moles/Vol] 136 mmol/L Normal 136-144 [facility] Comment on above: Order Comment: Speci men Type: BLOOD SPECIMENOrdering Facility: [facility] Address: [address] [place] [address] Performed By: #### 2 4323-8 ####[facility] [id number] [place] [address] [place] Urea nitrogen [Mass/Vol] 46 mg/dL High 9-24 [facility] Comment on above: Order Comment: Speci men Type: BLOOD SPECIMENOrdering Facility: [facility] Address: [address] [place] [address] Performed By: #### 2 4323-8 ####[facility] [id number] [place] [address] [place] CNPNon 04-05-2024 CNPN Normal [facility] Basic metabolic 2000 panelOr dered By: Fatou Cole on 04-01-2024 Anion gap [Moles/Vol] 7 mmol/L Low 9 - 18 mmol/L [facility] Calcium [Mass/Vol] 10.5 mg/dL High 8.5 - 10. 2 mg/dL [facility] Chloride [Moles/Vol] 102 mmol/L 97 - 10 5 mmol/L [facility] CO2 [Moles/Vol] 27 mmol/L 22 - 30 mmol/L [facility] Creatinine [Mass/Vol] 2.63 mg/dL High 0.73 - 1.22 mg/dL [facility] GFR/1.73 sq M.predicted among non-blacks MDRD (S/P/Bld) [Vol rate/Area] 32 mL/min/{1.73_m2} Low - PINF [facility] Comment on above: Estimated Glomerular Filtration Rate (eGFR) is calculated using the 2020 CKD-EPI creatinine equation. This equation utilizes serum creatinine, sex, and age as parameters. The creatinine assay has traceable calibration to isotope dilution-mass spectrometry. Refer to KDIGO guidelines for clinical interpretation. In patients with unstable renal function, e.g. those with acute kidney injury, the eGFR may not accurately reflect actual GFR. Glucose [Mass/Vol] 90 mg/dL 74 - 99 mg/dL [facility] Comment on above: The [place] Diabete s Association (ADA) provides guidance for cutoff values for fasting glucose and random glucose. The ADA defines fasting as no caloric intake for at least 8 hours. Fasting plasma glucose results between 100 to 125 mg/dL indicate increased risk for diabetes (prediabetes). Fasting plasma glucose results greater than or equal to 126 mg/dL meet the criteria for diagnosis of diabetes. In the absence of unequivocal hyperglycemia, results should be confirmed by repeat testing. In a patient with classic symptoms of hyperglycemia or hyperglycemic crisis, random plasma glucose results greater than or equal to 200 mg/dL meet the criteria for diagnosis of diabetes. Reference: Standards of Medical Care in Diabetes 2016, [place] [employer]. Diabetes Care. 2016.39(Suppl 1). Interpretation and review of laboratory results Abnormal [facility] Potassium [Moles/Vol] 4.2 mmol/L 3.7 - 5.1 mmol/L [facility] Sodium [Moles/Vol] 136 mmol/L 136 - 144 mmol/L [facility] Urea nitrogen [Mass/Vol] 48 mg/dL High 9 - 24 mg/dL [facility] Basic metabolic 2000 panelon 04-01-2024 Anion gap [Moles/Vol] 7 mmol/L Low 9-18 [facility] Comment on above: Order Comment: Speci men Type: BLOOD SPECIMENOrdering Facility: [facility] Address: [address] [place] [address] Performed By: #### 2 4321-2 ####[facility] EMERGENCYHuyen [id number] [place] [address] [place] Calcium [Mass/Vol] 10.5 mg/dL High 8.5-10.2 [facility] Comment on above: Order Comment: Speci men Type: BLOOD SPECIMENOrdering Facility: [facility] Address: [address] [place] [address] Performed By: #### 2 4321-2 ####[facility] HOSPITALLIA [id number] [place] [address] [place] Chloride [Moles/Vol] 102 mmol/L Normal 97-105 [facility] Comment on above: Order Comment: Speci men Type: BLOOD SPECIMENOrdering Facility: [facility] Address: [address] [place] [address] Performed By: #### 2 4321-2 ####[facility] [id number] [place] [address] [place] CO2 [Moles/Vol] 27 mmol/L Normal 22-30 [facility] Comment on above: Order Comment: Speci men Type: BLOOD SPECIMENOrdering Facility: [facility] Address: [address] [place] [address] Performed By: #### 2 4321-2 ####[facility] [id number] [place] [address] [place] Creatinine [Mass/Vol] 2.63 mg/dL High 0.73-1.22 [facility] Comment on above: Order Comment: Speci men Type: BLOOD SPECIMENOrdering Facility: [facility] Address: [address] [place] [address] Performed By: #### 2 4321-2 ####[facility] HOSPITALNCLI [id number] [place] [address] [place] Creatinine and Glomerular filtration rate.predicted panel (S/P/Bld) 32 mL/min/1.73m??? Low >=60 [facility] Comment on above: Order Comment: Speci men Type: BLOOD SPECIMENOrdering Facility: [facility] Address: [address] [place] [address] Result Comment: Elba mated Glomerular Filtration Rate (eGFR) is calculated using the 2020 CKD-EPI creatinine equation. This equation utilizes serum creatinine, sex, and age as parameters. The creatinine assay has traceable calibration to isotope dilution-mass spectrometry. Refer to KDIGO guidelines for clinical interpretation. In patients with unstable renal function, e.g. those with acute kidney injury, the eGFR may not accurately reflect actual GFR. Performed By: #### 2 4321-2 ####[facility] CITYWNCPABLOA [id number] [place] [address] [place] Glucose [Mass/Vol] 90 mg/dL Normal 74-99 [facility] Comment on above: Order Comment: Speci men Type: BLOOD SPECIMENOrdering Facility: [facility] Address: [address] [place] [address] Result Comment: The [place] Diabetes Association (ADA) provides guidance for cutoff values for fasting glucose and random glucose. The ADA defines fasting as no caloric intake for at least 8 hours. Fasting plasma glucose results between 100 to 125 mg/dL indicate increased risk for diabetes (prediabetes).Fasting plasma glucose results greater than or equal to 126 mg/dL meet the criteria for diagnosis of diabetes. In the absence of unequivocal hyperglycemia, results should be confirmed by repeat testing. In a patient with classic symptoms of hyperglycemia or hyperglycemic crisis, random plasma glucose results greater than or equal to 200 mg/dL meet the criteria for diagnosis of diabetes.Reference: Standards of Medical Care in Diabetes 2016, [place] [employer]. Diabetes Care. 2016.39(Suppl 1). Performed By: #### 2 4321-2 ####[facility] HOSPITALNCA [id number] [place] [address] [place] Potassium [Moles/Vol] 4.2 mmol/L Normal 3.7-5.1 [facility] Comment on above: Order Comment: Speci men Type: BLOOD SPECIMENOrdering Facility: [facility] Address: [address] [place] [address] Performed By: #### 2 4321-2 ####[facility]ITALNCLIA [id number] [place] [address] [place] Sodium [Moles/Vol] 136 mmol/L Normal 136-144 [facility] Comment on above: Order Comment: Speci men Type: BLOOD SPECIMENOrdering Facility: [facility] Address: [address] [place] [address] Performed By: #### 2 4321-2 ####[facility] CITYWNCLIA [id number] [place] [address] [place] Urea nitrogen [Mass/Vol] 48 mg/dL High 9-24 [facility] Comment on above: Order Comment: Speci men Type: BLOOD SPECIMENOrdering Facility: [facility] Address: [address] [place], [place] [address] Performed By: #### 2 4321-2 ####[facility] CITYWNCLIA [id number] [place] [address] [place] CNOVon 03-30-2024 CNOV Normal [facility] CNPTOUTREACHon 03-30-2024 CNPTOUTREACH Normal [facility] URINALYSIS, REFLEX MICROSCOP ICon 03-30-2024 Bilirubin Ql (U) Negative Negative [facility] Clarity (Unsp spec) Clear Clear [facility] Color (U) Light Yellow Yellow [facility] Glucose Test strip (U) [Mass/Vol] 3+ Abnormal Trace, Negative [facility] Hemoglobin Ql (U) Negative Negative, Trace [facility] Interpretation and review of laboratory results Abnormal [facility] Ketones Ql (U) Negative Negative, Trace [facility] Leukocyte esterase Test strip Ql (U) 25 Simon/uL Negative, 25 Simon/uL [facility] Nitrite Ql (U) Negative Negative [facility] pH (U) 6.0 [pH] 5.0 - 8.0 [facility] Protein (U) [Mass/Vol] 2+ Abnormal Trace , Negative [facility] Specific gravity (U) [Rel density] 1.009 1.005 - 1.030 [facility] Urobilinogen Ql (U) Normal Normal [facility] Bilirubin Ql (U) Negative Normal Negative [facility] Comment on above: Order Comment: Speci men Type: URINE SPECIMENOrdering Facility: [facility] Address: [address] [place] [address] Performed By: #### L [id number] ####[facility] LABCLIA [id number] [place] [id number] [place] Clarity (Unsp spec) Clear Normal Clear [facility] Comment on above: Order Comment: Speci men Type: URINE SPECIMENOrdering Facility: [facility] Address: [address] [place] [id number] Performed By: #### L [id number] ####[facility] LABCLIA [id number] [place] [address] [place] Color (U) Light Yellow Normal Yellow [facility] Comment on above: Order Comment: Speci men Type: URINE SPECIMENOrdering Facility: [facility] Address: [address] [place] [address] Performed By: #### L [id number] ####[facility] LABCLIA [id number] [place] [address] [place] Glucose Test strip (U) [Mass/Vol] 3+ Abnormal Trace, Negative [facility] Comment on above: Order Comment: Speci men Type: URINE SPECIMENOrdering Facility: [facility] Address: [address] [place], [place] [address] Performed By: #### L [id number] ####[facility] LABCLIA [id number] [place] [address] [place] Hemoglobin Ql (U) Negative Normal Negative, Trace [facility] Comment on above: Order Comment: Speci men Type: URINE SPECIMENOrdering Facility: [facility] Address: [address] [place] [id number] Performed By: #### L [id number] ####[facility] LABCLIA [id number] [place] [address] [place] Ketones Ql (U) Negative Normal Negative, Trace [facility] Comment on above: Order Comment: Speci men Type: URINE SPECIMENOrdering Facility: [facility] Address: [address] [place] [id number] Performed By: #### L [id number] ####[facility] LABCLIA [id number] [place] [address] [place] Leukocyte esterase Test strip Ql (U) 25 Simon/uL Normal Negative, 25 Simon/uL [facility] Comment on above: Order Comment: Speci men Type: URINE SPECIMENOrdering Facility: [facility] Address: [address] [place] [address] Performed By: #### L [id number] ####[facility] LABCLIA [id number] [place] [address] [place] Nitrite Ql (U) Negative Normal Negative [facility] Comment on above: Order Comment: Speci men Type: URINE SPECIMENOrdering Facility: [facility] Address: [address] [place] [address] Performed By: #### L [id number] ####[facility] LABCLIA [id number] [place] [address] [place] pH (U) 6.0 [pH] Normal 5.0-8.0 [facility] Comment on above: Order Comment: Speci men Type: URINE SPECIMENOrdering Facility: [facility] Address: [address] [place] [address] Performed By: #### L [id number] ####[facility] LABCLIA [id number] [place] [address] [place] Protein (U) [Mass/Vol] 2+ Abnormal Trace , Negative [facility] Comment on above: Order Comment: Speci men Type: URINE SPECIMENOrdering Facility: [facility] Address: [address] [place] [address] Performed By: #### L [id number] ####[facility] LABIA [id number] [place] [address] [place] Specific gravity (U) [Rel density] 1.009 Normal 1.005-1.030 [facility] Comment on above: Order Comment: Speci men Type: URINE SPECIMENOrdering Facility: [facility] Address: [address] [place] [id number] Performed By: #### L [id number] ####[facility] LABCLIA [id number] [address] [place] Urobilinogen Ql (U) Normal Normal Normal [facility] Comment on above: Order Comment: Speci men Type: URINE SPECIMENOrdering Facility: [facility] Address: [address] [place] [address] Performed By: #### L [id number] ####[facility] LABCLIA [id number] [place] [address] [place] Comprehensive metabolic 2000 panelOrdered By: Jeannette Murillo on 03-25-2024 Albumin [Mass/Vol] 3.6 g/dL Low 3.9 - 4.9 g/dL [facility] ALP [Catalytic activity/Vol] 152 U/L High 38 - 113 U/L [facility] ALT [Catalytic activity/Vol] 26 U/L 10 - 54 U/L [facility] Anion gap [Moles/Vol] 8 mmol/L Low 9 - 18 mmol/L [facility] AST [Catalytic activity/Vol] 22 U/L 14 - 40 U/L [facility] Bilirubin [Mass/Vol] 0.3 mg/dL 0.2 - 1 .3 mg/dL [facility] Calcium [Mass/Vol] 10.1 mg/dL 8.5 - 10. 2 mg/dL [facility] Chloride [Moles/Vol] 101 mmol/L 97 - 10 5 mmol/L [facility] CO2 [Moles/Vol] 26 mmol/L 22 - 30 mmol/L [facility] Creatinine [Mass/Vol] 1.99 mg/dL High 0.73 - 1.22 mg/dL [facility] GFR/1.73 sq M.predicted among non-blacks MDRD (S/P/Bld) [Vol rate/Area] 45 mL/min/{1.73_m2} Low - PINF [facility] Comment on above: Estimated Glomerular Filtration Rate (eGFR) is calculated using the 2020 CKD-EPI creatinine equation. This equation utilizes serum creatinine, sex, and age as parameters. The creatinine assay has traceable calibration to isotope dilution-mass spectrometry. Refer to KDIGO guidelines for clinical interpretation. In patients with unstable renal function, e.g. those with acute kidney injury, the eGFR may not accurately reflect actual GFR. Glucose [Mass/Vol] 87 mg/dL 74 - 99 mg/dL [facility] Comment on above: The [place] Diabete s Association (ADA) provides guidance for cutoff values for fasting glucose and random glucose. The ADA defines fasting as no caloric intake for at least 8 hours. Fasting plasma glucose results between 100 to 125 mg/dL indicate increased risk for diabetes (prediabetes). Fasting plasma glucose results greater than or equal to 126 mg/dL meet the criteria for diagnosis of diabetes. In the absence of unequivocal hyperglycemia, results should be confirmed by repeat testing. In a patient with classic symptoms of hyperglycemia or hyperglycemic crisis, random plasma glucose results greater than or equal to 200 mg/dL meet the criteria for diagnosis of diabetes. Reference: Standards of Medical Care in Diabetes 2016, [place] [employer] Association. Diabetes Care. 2016.39(Suppl 1). Interpretation and review of laboratory results Abnormal [facility] Potassium [Moles/Vol] 3.8 mmol/L 3.7 - 5.1 mmol/L [facility] Protein [Mass/Vol] 6.8 g/dL 6.3 - 8.0 g/dL [facility] Sodium [Moles/Vol] 135 mmol/L Low 136 - 144 mmol/L [facility] Urea nitrogen [Mass/Vol] 36 mg/dL High 9 - 24 mg/dL [facility] Comprehensive metabolic 2000 panelon 03-25-2024 Albumin [Mass/Vol] 3.6 g/dL Low 3.9-4.9 [facility] Comment on above: Order Comment: Ellen hatch Type: BLOOD SPECIMENOrdering Facility: [facility] Address: [address] [place] [address] Performed By: #### 2 4323-8 ####[facility] [id number] [place] [address] [place] ALP [Catalytic activity/Vol] 152 U/L High 38-113 [facility] Comment on above: Order Comment: Ellen hatch Type: BLOOD SPECIMENOrdering Facility: [facility] Address: [address] [place] [address] Performed By: #### 2 4323-8 ####[facility] MILLWNCLIA [id number] [place] [address] [place] ALT [Catalytic activity/Vol] 26 U/L Normal 10-54 [facility] Comment on above: Order Comment: Speci men Type: BLOOD SPECIMENOrdering Facility: [facility] Address: [address] [place] [address] Performed By: #### 2 4323-8 ####[facility]ITALNCLIA [id number] [place] [address] [place] Anion gap [Moles/Vol] 8 mmol/L Low 9-18 [facility] Comment on above: Order Comment: Speci men Type: BLOOD SPECIMENOrdering Facility: [facility] Address: [address] [place] [address] Performed By: #### 2 4323-8 ####[facility] HOSPITALNCLIA [id number] [place] [address] [place] AST [Catalytic activity/Vol] 22 U/L Normal 14-40 [facility] Comment on above: Order Comment: Speci men Type: BLOOD SPECIMENOrdering Facility: [facility] Address: [address] [place] [address] Performed By: #### 2 4323-8 ####[facility]PITALNCLIA [id number] [place] [address] [place] Bilirubin [Mass/Vol] 0.3 mg/dL Normal 0.2-1.3 [facility] Comment on above: Order Comment: Speci men Type: BLOOD SPECIMENOrdering Facility: [facility] Address: [address] [place] [address] Performed By: #### 2 4323-8 ####[facility] HOSPITALNCLIA [id number] [place] [address] [place] Calcium [Mass/Vol] 10.1 mg/dL Normal 8.5-10.2 [facility] Comment on above: Order Comment: Speci men Type: BLOOD SPECIMENOrdering Facility: [facility] Address: [address] [place] [address] Performed By: #### 2 4323-8 ####[facility] MILLWNCLIA [id number] [place] [address] [place] Chloride [Moles/Vol] 101 mmol/L Normal 97-105 [facility] Comment on above: Order Comment: Speci men Type: BLOOD SPECIMENOrdering Facility: [facility] Address: [address] [place] [address] Performed By: #### 2 4323-8 ####[facility]ITALNCLIA [id number] [place] [address] [place] CO2 [Moles/Vol] 26 mmol/L Normal 22-30 [facility] Comment on above: Order Comment: Speci men Type: BLOOD SPECIMENOrdering Facility: [facility] Address: [address] [place] [address] Performed By: #### 2 4323-8 ####[facility]PITALNCLIA [id number] [place] [address] [place] Creatinine [Mass/Vol] 1.99 mg/dL High 0.73-1.22 [facility] Comment on above: Order Comment: Speci men Type: BLOOD SPECIMENOrdering Facility: [facility] Address: [address] [place] [address] Performed By: #### 2 4323-8 ####[facility] HOSPITALLIA [id number] [place] [address] [place] Creatinine and Glomerular filtration rate.predicted panel (S/P/Bld) 45 mL/min/1.73m??? Low >=60 [facility] Comment on above: Order Comment: Ellen hatch Type: BLOOD SPECIMENOrdering Facility: [facility] Address: [address] [place] [address] Result Comment: Elba mated Glomerular Filtration Rate (eGFR) is calculated using the 2020 CKD-EPI creatinine equation. This equation utilizes serum creatinine, sex, and age as parameters. The creatinine assay has traceable calibration to isotope dilution-mass spectrometry. Refer to KDIGO guidelines for clinical interpretation. In patients with unstable renal function, e.g. those with acute kidney injury, the eGFR may not accurately reflect actual GFR. Performed By: #### 2 4323-8 ####[facility] [id number] [place] [address] [place] Glucose [Mass/Vol] 87 mg/dL Normal 74-99 [facility] Comment on above: Order Comment: Ellen hatch Type: BLOOD SPECIMENOrdering Facility: [facility] Address: [address] [place] [address] Result Comment: The [place] Diabetes Association (ADA) provides guidance for cutoff values for fasting glucose and random glucose. The ADA defines fasting as no caloric intake for at least 8 hours. Fasting plasma glucose results between 100 to 125 mg/dL indicate increased risk for diabetes (prediabetes).Fasting plasma glucose results greater than or equal to 126 mg/dL meet the criteria for diagnosis of diabetes. In the absence of unequivocal hyperglycemia, results should be confirmed by repeat testing. In a patient with classic symptoms of hyperglycemia or hyperglycemic crisis, random plasma glucose results greater than or equal to 200 mg/dL meet the criteria for diagnosis of diabetes.Reference: Standards of Medical Care in Diabetes 2016, [place] Diabetes Association. Diabetes Care. 2016.39(Suppl 1). Performed By: #### 2 4323-8 ####[facility] [id number] [place] [address] [place] Potassium [Moles/Vol] 3.8 mmol/L Normal 3.7-5.1 [facility] Comment on above: Order Comment: Ellen hatch Type: BLOOD SPECIMENOrdering Facility: [facility] Address: [address] [place] [id number] Performed By: #### 2 4323-8 ####[facility] MILLTOWNCLIA [id number] [place] [address] [place] Protein [Mass/Vol] 6.8 g/dL Normal 6.3-8.0 [facility] Comment on above: Order Comment: Speci men Type: BLOOD SPECIMENOrdering Facility: [facility] Address: [address] [place] [address] Performed By: #### 2 4323-8 ####[facility] CITYWNCLIA [id number] [place] [address] [place] Sodium [Moles/Vol] 135 mmol/L Low 136-144 [facility] Comment on above: Order Comment: Speci men Type: BLOOD SPECIMENOrdering Facility: [facility] Address: [address] [place] [address] Performed By: #### 2 4323-8 ####[facility] CITYWNCLIA [id number] [place] [address] [place] Urea nitrogen [Mass/Vol] 36 mg/dL High 9-24 [facility] Comment on above: Order Comment: Speci men Type: BLOOD SPECIMENOrdering Facility: [facility] Address: [address] [place] [address] Performed By: #### 2 4323-8 ####[facility] HOSPITALLIA [id number] [place] [address] [place] CBC panel Auto (Bld)on 03-21 Erythrocyte distribution width (RBC) [Ratio] 14.6 % Normal 11.5-15.0 [facility] Comment on above: Order Comment: Speci men Type: BLOOD SPECIMENOrdering Facility: [facility] Address: [address] [place] [address] Performed By: #### 5 8410-2 ####[facility] LABCLIA [id number] [place] [address] [place] Hematocrit (Bld) [Volume fraction] 32.3 % Low 39.0-51.0 [facility] Comment on above: Order Comment: Speci men Type: BLOOD SPECIMENOrdering Facility: [facility] Address: [address] [place] [address] Performed By: #### 5 8410-2 ####[facility] LABCLIA [id number] [place] [address] [place] Hemoglobin (Bld) [Mass/Vol] 10.9 g/dL Low 13.0-17.0 [facility] Comment on above: Order Comment: Speci men Type: BLOOD SPECIMENOrdering Facility: [facility] Address: [address] [place] [address] Performed By: #### 5 8410-2 ####[facility] LABIA [id number] [place] [address] [place] MCH (RBC) [Entitic mass] 29.5 pg Normal 26.0-34.0 [facility] Comment on above: Order Comment: Speci men Type: BLOOD SPECIMENOrdering Facility: [facility] Address: [address] [place] [address] Performed By: #### 5 8410-2 ####[facility] LABIA [id number] [place] [address] [place] MCHC (RBC) [Mass/Vol] 33.7 g/dL Normal 30.5-36.0 [facility] Comment on above: Order Comment: Speci men Type: BLOOD SPECIMENOrdering Facility: [facility] Address: [address] [place] [address] Performed By: #### 5 8410-2 ####[facility] LABCLIA [id number] [place] [address] [place] MCV (RBC) [Entitic vol] 87.5 fL Normal 80.0-100.0 [facility] Comment on above: Order Comment: Speci men Type: BLOOD SPECIMENOrdering Facility: [facility] Address: [address] [place] [address] Performed By: #### 5 8410-2 ####[facility] LABIA [id number] [place] [address] [place] Nucleated RBC (Bld) [#/Vol] 10*3/uL Normal <0.01 [facility] Comment on above: Order Comment: Speci men Type: BLOOD SPECIMENOrdering Facility: [facility] Address: [address] [place] [address] Performed By: #### 5 8410-2 ####[facility] LABIA [id number] [place] [address] [place] Platelet mean volume (Bld) [Entitic vol] 8.6 fL Low 9.0-12.7 [facility] Comment on above: Order Comment: Speci men Type: BLOOD SPECIMENOrdering Facility: [facility] Address: [address] [place] [address] Performed By: #### 5 8410-2 ####[facility] [id number] [place] [address] [place] Platelets (Bld) [#/Vol] 166 10*3/uL Normal 150-400 [facility] Comment on above: Order Comment: Speci men Type: BLOOD SPECIMENOrdering Facility: [facility] Address: [address] [place] [address] Performed By: #### 5 8410-2 ####[facility] LABIA [id number] [place] [address] [place] RBC (Bld) [#/Vol] 3.69 10*6/uL Low 4.20-6.00 [facility] Comment on above: Order Comment: Speci men Type: BLOOD SPECIMENOrdering Facility: [facility] Address: [address] [place] [address] Performed By: #### 5 8410-2 ####[facility] LABCLIA [id number] [address] [address] [place] WBC (Bld) [#/Vol] 8.74 10*3/uL Normal 3.70-11.00 [facility] Comment on above: Order Comment: Speci men Type: BLOOD SPECIMENOrdering Facility: [facility] Address: [address] [place] [address] Performed By: #### 5 8410-2 ####[facility] LABIA [id number] [place] [address] [place] CNDSon 03-21-2024 CNDS Normal [facility] Comprehensive metabolic 2000 panelon 03-21-2024 Albumin [Mass/Vol] 3.4 g/dL Low 3.9-4.9 [facility] Comment on above: Order Comment: Speci men Type: BLOOD SPECIMENOrdering Facility: [facility] Address: [address] [place] [address] Performed By: #### 2 4323-8, 2777-1, 27821-6 ####[facility] LABIA [id number] [place] [address] [place] ALP [Catalytic activity/Vol] 133 U/L High 38-113 [facility] Comment on above: Order Comment: Speci men Type: BLOOD SPECIMENOrdering Facility: [facility] Address: [address] [place], [place] [address] Performed By: #### 2 4323-8, 2777-1, 76152-8 ####[facility] LABIA [id number] [place] [address] [place] ALT [Catalytic activity/Vol] 28 U/L Normal 10-54 [facility] Comment on above: Order Comment: Speci men Type: BLOOD SPECIMENOrdering Facility: [facility] Address: [address] [place] [address] Performed By: #### 2 4323-8, 2777, ####[facility] LABCLIA [id number] [place] [id number] [place] Anion gap [Moles/Vol] 16 mmol/L Normal 9-18 [facility] Comment on above: Order Comment: Speci men Type: BLOOD SPECIMENOrdering Facility: [facility] Address: [address] [place] [address] Performed By: #### 2 4323-8, 27705-17, ####[facility] LABIA [id number] [place] [address] [place] AST [Catalytic activity/Vol] 22 U/L Normal 14-40 [facility] Comment on above: Order Comment: Speci men Type: BLOOD SPECIMENOrdering Facility: [facility] Address: [address] [place] [address] Performed By: #### 2 4323-8, 2776-11, ####[facility] LABIA [id number] [place] [address] [place] Bilirubin [Mass/Vol] 0.6 mg/dL Normal 0.2-1.3 [facility] Comment on above: Order Comment: Speci men Type: BLOOD SPECIMENOrdering Facility: [facility] Address: [address] [place] [address] Performed By: #### 2 4323-8, 27705-17, ####[facility] LABIA [id number] [place] [id number] [place] Calcium [Mass/Vol] 9.7 mg/dL Normal 8.5-10.2 [facility] Comment on above: Order Comment: Speci men Type: BLOOD SPECIMENOrdering Facility: [facility] Address: [address] [place] [address] Performed By: #### 2 4323-8, 2776-11, ####[facility] LABCLIA [id number] [address] [address] [place] Chloride [Moles/Vol] 100 mmol/L Normal 97-105 [facility] Comment on above: Order Comment: Speci men Type: BLOOD SPECIMENOrdering Facility: [facility] Address: [address] [place] [address] Performed By: #### 2 4323-8, 27705-17, ####[facility] LABIA [id number] [address] [address] [place] CO2 [Moles/Vol] 22 mmol/L Normal 22-30 [facility] Comment on above: Order Comment: Speci men Type: BLOOD SPECIMENOrdering Facility: [facility] Address: [address] [place] [address] Performed By: #### 2 4323-8, 27705-17, ####[facility] LABIA [id number] [address] [address] [place] Creatinine [Mass/Vol] 2.39 mg/dL High 0.73-1.22 [facility] Comment on above: Order Comment: Speci men Type: BLOOD SPECIMENOrdering Facility: [facility] Address: [address] [place] [address] Performed By: #### 2 4323-8, 27705-17, ####[facility] LABIA [id number] [address] [address] [place] Creatinine and Glomerular filtration rate.predicted panel (S/P/Bld) 36 mL/min/1.73m??? Low >=60 [facility] Comment on above: Order Comment: Speci men Type: BLOOD SPECIMENOrdering Facility: [facility] Address: [address] [place] [address] Result Comment: Elba mated Glomerular Filtration Rate (eGFR) is calculated using the 2020 CKD-EPI creatinine equation. This equation utilizes serum creatinine, sex, and age as parameters. The creatinine assay has traceable calibration to isotope dilution-mass spectrometry. Refer to KDIGO guidelines for clinical interpretation. In patients with unstable renal function, e.g. those with acute kidney injury, the eGFR may not accurately reflect actual GFR. Performed By: #### 2 4323-8, 27705-17, ####[facility] LABCLIA [id number] [address] [address] [place] Glucose [Mass/Vol] 114 mg/dL High 74-99 [facility] Comment on above: Order Comment: Specana hatch Type: BLOOD SPECIMENOrdering Facility: [facility] Address: [address] [place] [address] Result Comment: The [place] [employer] (ADA) provides guidance for cutoff values for fasting glucose and random glucose. The ADA defines fasting as no caloric intake for at least 8 hours. Fasting plasma glucose results between 100 to 125 mg/dL indicate increased risk for diabetes (prediabetes).Fasting plasma glucose results greater than or equal to 126 mg/dL meet the criteria for diagnosis of diabetes. In the absence of unequivocal hyperglycemia, results should be confirmed by repeat testing. In a patient with classic symptoms of hyperglycemia or hyperglycemic crisis, random plasma glucose results greater than or equal to 200 mg/dL meet the criteria for diagnosis of diabetes.Reference: Standards of Medical Care in Diabetes 2016, [place] [employer]. Diabetes Care. 2016.39(Suppl 1). Performed By: #### 2 4323-8, 2776-11, ####[facility] LABCLIA [id number] [address] [address] [place] Potassium [Moles/Vol] 3.3 mmol/L Low 3.7-5.1 [facility] Comment on above: Order Comment: Ellen hatch Type: BLOOD SPECIMENOrdering Facility: [facility] Address: [address] [place] [address] Performed By: #### 2 4323-8, 27705-17, ####[facility] LABCLIA [id number] [place] [address] [place] Protein [Mass/Vol] 6.5 g/dL Normal 6.3-8.0 [facility] Comment on above: Order Comment: Speci men Type: BLOOD SPECIMENOrdering Facility: [facility] Address: [address] [place] [address] Performed By: #### 2 4323-8, 2777-1, ####[facility] LABCLIA [id number] [place] [address] [place] Sodium [Moles/Vol] 138 mmol/L Normal 136-144 [facility] Comment on above: Order Comment: Speci men Type: BLOOD SPECIMENOrdering Facility: [facility] Address: [address] [place] [address] Performed By: #### 2 4323-8, 2777-1, ####[facility] LABCLIA [id number] [place] [address] [place] Urea nitrogen [Mass/Vol] 35 mg/dL High 9-24 [facility] Comment on above: Order Comment: Speci men Type: BLOOD SPECIMENOrdering Facility: [facility] Address: [address] [place] [address] Performed By: #### 2 4323-8, 2777-1, ####[facility] LABCLIA [id number] [place] [id number] [place] Magnesium SerPl-mCncon 03-21 Magnesium [Mass/Vol] 2.1 mg/dL Normal 1.7-2.3 [facility] Comment on above: Order Comment: Speci men Type: BLOOD SPECIMENOrdering Facility: [facility] Address: [address] [place] [address] Performed By: #### 2 4323-8, 2777-1, 83295-7 ####[facility] LABCLIA [id number] [address] [address] [place] PT EDon 03-21-2024 PT ED Normal [facility] Phosphate SerPl-mCncon 03-21 Phosphate [Mass/Vol] 3.7 mg/dL Normal 2.7-4.8 [facility] Comment on above: Order Comment: Speci men Type: BLOOD SPECIMENOrdering Facility: [facility] Address: [address] [place] [address] Performed By: #### 2 4323-8, 2777-1, 69465-1 ####[facility] LABCLIA [id number] [place] [address] [place] CBC panel Auto (Bld)on 03-20 Erythrocyte distribution width (RBC) [Ratio] 14.6 % Normal 11.5-15.0 [facility] Comment on above: Order Comment: Speci men Type: BLOOD SPECIMENOrdering Facility: [facility] Address: [address] [place] [address] Performed By: #### 5 8410-2 ####[facility] LABCLIA [id number] [place] [address] [place] Hematocrit (Bld) [Volume fraction] 35.1 % Low 39.0-51.0 [facility] Comment on above: Order Comment: Speci men Type: BLOOD SPECIMENOrdering Facility: [facility] Address: [address] [place] [address] Performed By: #### 5 8410-2 ####[facility] LABCLIA [id number] [place] [id number] [place] Hemoglobin (Bld) [Mass/Vol] 11.7 g/dL Low 13.0-17.0 [facility] Comment on above: Order Comment: Speci men Type: BLOOD SPECIMENOrdering Facility: [facility] Address: [address] [place] [address] Performed By: #### 5 8410-2 ####[facility] LABCLIA [id number] [place] [address] [place] MCH (RBC) [Entitic mass] 29.7 pg Normal 26.0-34.0 [facility] Comment on above: Order Comment: Speci men Type: BLOOD SPECIMENOrdering Facility: [facility] Address: [address] [place] [address] Performed By: #### 5 8410-2 ####[facility] LABIA [id number] [place] [address] [place] MCHC (RBC) [Mass/Vol] 33.3 g/dL Normal 30.5-36.0 [facility] Comment on above: Order Comment: Speci men Type: BLOOD SPECIMENOrdering Facility: [facility] Address: [address] [place] [address] Performed By: #### 5 8410-2 ####[facility] LABIA [id number] [place] [address] [place] MCV (RBC) [Entitic vol] 89.1 fL Normal 80.0-100.0 [facility] Comment on above: Order Comment: Speci men Type: BLOOD SPECIMENOrdering Facility: [facility] Address: [address] [place] [address] Performed By: #### 5 8410-2 ####[facility] LABIA [id number] [place] [address] [place] Nucleated RBC (Bld) [#/Vol] 10*3/uL Normal <0.01 [facility] Comment on above: Order Comment: Speci men Type: BLOOD SPECIMENOrdering Facility: [facility] Address: [address] [place] [address] Performed By: #### 5 8410-2 ####[facility] LABIA [id number] [place] [address] [place] Platelet mean volume (Bld) [Entitic vol] 8.9 fL Low 9.0-12.7 [facility] Comment on above: Order Comment: Speci men Type: BLOOD SPECIMENOrdering Facility: [facility] Address: [address] [place] [address] Performed By: #### 5 8410-2 ####[facility] LABCLIA [id number] [place] [id number] [place] Platelets (Bld) [#/Vol] 162 10*3/uL Normal 150-400 [facility] Comment on above: Order Comment: Speci men Type: BLOOD SPECIMENOrdering Facility: [facility] Address: [address] [place] [address] Performed By: #### 5 8410-2 ####[facility] LABCLIA [id number] [place] [address] [place] RBC (Bld) [#/Vol] 3.94 10*6/uL Low 4.20-6.00 [facility] Comment on above: Order Comment: Speci men Type: BLOOD SPECIMENOrdering Facility: [facility] Address: [address] [place] [address] Performed By: #### 5 8410-2 ####[facility] LABCLIA [id number] [place] [address] [place] WBC (Bld) [#/Vol] 8.87 10*3/uL Normal 3.70-11.00 [facility] Comment on above: Order Comment: Speci men Type: BLOOD SPECIMENOrdering Facility: [facility] Address: [address] [place] [address] Performed By: #### 5 8410-2 ####[facility] LABCLIA [id number] [place] [id number] [place] Comprehensive metabolic 2000 panelon 03-20-2024 Albumin [Mass/Vol] 3.8 g/dL Low 3.9-4.9 [facility] Comment on above: Order Comment: Speci men Type: BLOOD SPECIMENOrdering Facility: [facility] Address: [address] [place] [address] Performed By: #### 1 9123-9, 14829-4, 2777- ####[facility] LABCLIA [id number] [place] [address] [place] ALP [Catalytic activity/Vol] 123 U/L High 38-113 [facility] Comment on above: Order Comment: Speci men Type: BLOOD SPECIMENOrdering Facility: [facility] Address: [address] [place] [address] Performed By: #### 1 9123-9, 71995-1, 2777- ####[facility] LABCLIA [id number] [place] [address] [place] ALT [Catalytic activity/Vol] 33 U/L Normal 10-54 [facility] Comment on above: Order Comment: Speci men Type: BLOOD SPECIMENOrdering Facility: [facility] Address: [address] [place] [address] Performed By: #### 1 9123-9, 65392-1, 277- ####[facility] LABIA [id number] [place] [address] [place] Anion gap [Moles/Vol] 13 mmol/L Normal 9-18 [facility] Comment on above: Order Comment: Speci men Type: BLOOD SPECIMENOrdering Facility: [facility] Address: [address] [place] [address] Performed By: #### 1 9123-9, 28458-7, 277- ####[facility] LABIA [id number] [place] [address] [place] AST [Catalytic activity/Vol] 21 U/L Normal 14-40 [facility] Comment on above: Order Comment: Speci men Type: BLOOD SPECIMENOrdering Facility: [facility] Address: [address] [place] [address] Performed By: #### 1 9123-9, 87988-5, 2776-11 ####[facility] LABCLIA [id number] [address] [address] [place] Bilirubin [Mass/Vol] 0.7 mg/dL Normal 0.2-1.3 [facility] Comment on above: Order Comment: Speci men Type: BLOOD SPECIMENOrdering Facility: [facility] Address: [address] [place] [address] Performed By: #### 1 9123-9, 61589-3, 2776-11 ####[facility] LABCLIA [id number] [place] [address] [place] Calcium [Mass/Vol] 9.7 mg/dL Normal 8.5-10.2 [facility] Comment on above: Order Comment: Speci men Type: BLOOD SPECIMENOrdering Facility: [facility] Address: [address] [place] [address] Performed By: #### 1 9123-9, , 2776-11 ####[facility] LABCLIA [id number] [place] [address] [place] Chloride [Moles/Vol] 100 mmol/L Normal 97-105 [facility] Comment on above: Order Comment: Speci men Type: BLOOD SPECIMENOrdering Facility: [facility] Address: [address] [place] [address] Performed By: #### 1 9123-9, , 2776-11 ####[facility] LABCLIA [id number] [address] [address] [place] CO2 [Moles/Vol] 23 mmol/L Normal 22-30 [facility] Comment on above: Order Comment: Speci men Type: BLOOD SPECIMENOrdering Facility: [facility] Address: [address] [place] [address] Performed By: #### 1 9123-9, 24261-5, 277- ####[facility] LABCLIA [id number] [address] [address] [place] Creatinine [Mass/Vol] 2.33 mg/dL High 0.73-1.22 [facility] Comment on above: Order Comment: Specana hatch Type: BLOOD SPECIMENOrdering Facility: [facility] Address: [address] [place] [address] Performed By: #### 1 9123-9, 92961-4, 2777- ####[facility] LABIA [id number] [place] [address] [place] Creatinine and Glomerular filtration rate.predicted panel (S/P/Bld) 37 mL/min/1.73m??? Low >=60 [facility] Comment on above: Order Comment: Ellen hathc Type: BLOOD SPECIMENOrdering Facility: [facility] Address: [address] [place] [address] Result Comment: Elba mated Glomerular Filtration Rate (eGFR) is calculated using the 2020 CKD-EPI creatinine equation. This equation utilizes serum creatinine, sex, and age as parameters. The creatinine assay has traceable calibration to isotope dilution-mass spectrometry. Refer to KDIGO guidelines for clinical interpretation. In patients with unstable renal function, e.g. those with acute kidney injury, the eGFR may not accurately reflect actual GFR. Performed By: #### 1 9123-9, 31724-0, 2777- ####[facility] LABIA [id number] [place] [id number] [place] Glucose [Mass/Vol] 126 mg/dL High 74-99 [facility] Comment on above: Order Comment: Speci mamie Type: BLOOD SPECIMENOrdering Facility: [facility] Address: [address] [place] [address] Result Comment: The [place] [employer] (ADA) provides guidance for cutoff values for fasting glucose and random glucose. The ADA defines fasting as no caloric intake for at least 8 hours. Fasting plasma glucose results between 100 to 125 mg/dL indicate increased risk for diabetes (prediabetes).Fasting plasma glucose results greater than or equal to 126 mg/dL meet the criteria for diagnosis of diabetes. In the absence of unequivocal hyperglycemia, results should be confirmed by repeat testing. In a patient with classic symptoms of hyperglycemia or hyperglycemic crisis, random plasma glucose results greater than or equal to 200 mg/dL meet the criteria for diagnosis of diabetes.Reference: Standards of Medical Care in Diabetes 2016, [place] [employer]. Diabetes Care. 2016.39(Suppl 1). Performed By: #### 1 9123-9, 10560-3, 2776- ####[facility] LABCLIA [id number] [place] [address] [place] Potassium [Moles/Vol] 3.4 mmol/L Low 3.7-5.1 [facility] Comment on above: Order Comment: Speci men Type: BLOOD SPECIMENOrdering Facility: [facility] Address: [address] [place] [address] Performed By: #### 1 9123-9, , 2776-11 ####[facility] LABCLIA [id number] [place] [address] [place] Protein [Mass/Vol] 6.7 g/dL Normal 6.3-8.0 [facility] Comment on above: Order Comment: Ellen hatch Type: BLOOD SPECIMENOrdering Facility: [facility] Address: [address] [place] [address] Performed By: #### 1 9123-9, , 2776-11 ####[facility] LABCLIA [id number] [place] [address] [place] Sodium [Moles/Vol] 136 mmol/L Normal 136-144 [facility] Comment on above: Order Comment: Erini men Type: BLOOD SPECIMENOrdering Facility: [facility] Address: [address] [place] [address] Performed By: #### 1 9123-9, 52850-7, 2776-11 ####[facility] LABCLIA [id number] [place] [id number] [place] Urea nitrogen [Mass/Vol] 33 mg/dL High 9-24 [facility] Comment on above: Order Comment: Speci men Type: BLOOD SPECIMENOrdering Facility: [facility] Address: [address] [place] [address] Performed By: #### 1 9123-9, 52614-3, 2777-1 ####[facility] LABIA [id number] [place] [address] [place] Magnesium SerPl-ncon 03-20 Magnesium [Mass/Vol] 2.0 mg/dL Normal 1.7-2.3 [facility] Comment on above: Order Comment: Speci men Type: BLOOD SPECIMENOrdering Facility: [facility] Address: [address] [place] [address] Performed By: #### 1 9123-9, 88878-2, 2777-1 ####[facility] LABIA [id number] [place] [address] [place] Phosphate SerPl-mCncon 03-20 Phosphate [Mass/Vol] 2.6 mg/dL Low 2.7-4.8 [facility] Comment on above: Order Comment: Speci men Type: BLOOD SPECIMENOrdering Facility: [facility] Address: [address] [place] [address] Performed By: #### 1 9123-9, 12661-3, 2777-1 ####[facility] LABIA [id number] [place] [id number] [place] THERAPY NTon 03-20-2024 THERAPY NT Normal [facility] CASE MANAGEMon 03-19-2024 CASE MANAGEM Normal [facility] CBC panel Auto (Bld)on 03-19 Erythrocyte distribution width (RBC) [Ratio] 15.0 % Normal 11.5-15.0 [facility] Comment on above: Order Comment: Speci men Type: BLOOD SPECIMENOrdering Facility: [facility] Address: [address] [place] [address] Performed By: #### 5 8410-2 ####[facility] LABCLIA [id number] [place] [address] [place] Hematocrit (Bld) [Volume fraction] 32.0 % Low 39.0-51.0 [facility] Comment on above: Order Comment: Speci men Type: BLOOD SPECIMENOrdering Facility: [facility] Address: [address] [place] [address] Performed By: #### 5 8410-2 ####[facility] LABCLIA [id number] [place] [address] [place] Hemoglobin (Bld) [Mass/Vol] 10.6 g/dL Low 13.0-17.0 [facility] Comment on above: Order Comment: Speci men Type: BLOOD SPECIMENOrdering Facility: [facility] Address: [address] [place] [address] Performed By: #### 5 8410-2 ####[facility] LABCLIA [id number] [place] [address] [place] MCH (RBC) [Entitic mass] 29.8 pg Normal 26.0-34.0 [facility] Comment on above: Order Comment: Speci men Type: BLOOD SPECIMENOrdering Facility: [facility] Address: [address] [place] [address] Performed By: #### 5 8410-2 ####[facility] LABCLIA [id number] [place] [address] [place] MCHC (RBC) [Mass/Vol] 33.1 g/dL Normal 30.5-36.0 [facility] Comment on above: Order Comment: Speci men Type: BLOOD SPECIMENOrdering Facility: [facility] Address: [address] [place] [address] Performed By: #### 5 8410-2 ####[facility] LABCLIA [id number] [place] [address] [place] MCV (RBC) [Entitic vol] 89.9 fL Normal 80.0-100.0 [facility] Comment on above: Order Comment: Speci men Type: BLOOD SPECIMENOrdering Facility: [facility] Address: [address] [place] [address] Performed By: #### 5 8410-2 ####[facility] LABIA [id number] [place] [address] [place] Nucleated RBC (Bld) [#/Vol] 10*3/uL Normal <0.01 [facility] Comment on above: Order Comment: Speci men Type: BLOOD SPECIMENOrdering Facility: [facility] Address: [address] [place] [address] Performed By: #### 5 8410-2 ####[facility] LABIA [id number] [place] [address] [place] Platelet mean volume (Bld) [Entitic vol] 9.0 fL Normal 9.0-12.7 [facility] Comment on above: Order Comment: Speci men Type: BLOOD SPECIMENOrdering Facility: [facility] Address: [address] [place] [address] Performed By: #### 5 8410-2 ####[facility] LABIA [id number] [place] [address] [place] Platelets (Bld) [#/Vol] 135 10*3/uL Low 150-400 [facility] Comment on above: Order Comment: Speci men Type: BLOOD SPECIMENOrdering Facility: [facility] Address: [address] [place] [address] Performed By: #### 5 8410-2 ####[facility] LABCLIA [id number] [place] [address] [place] RBC (Bld) [#/Vol] 3.56 10*6/uL Low 4.20-6.00 [facility] Comment on above: Order Comment: Speci men Type: BLOOD SPECIMENOrdering Facility: [facility] Address: [address] [place] [address] Performed By: #### 5 8410-2 ####[facility] LABCLIA [id number] [address] [address] [place] WBC (Bld) [#/Vol] 6.65 10*3/uL Normal 3.70-11.00 [facility] Comment on above: Order Comment: Speci men Type: BLOOD SPECIMENOrdering Facility: [facility] Address: [address] [place] [address] Performed By: #### 5 8410-2 ####[facility] LABCLIA [id number] [place] [address] [place] Comprehensive metabolic 2000 panelon 03-19-2024 Albumin [Mass/Vol] 3.7 g/dL Low 3.9-4.9 [facility] Comment on above: Order Comment: Speci men Type: BLOOD SPECIMENOrdering Facility: [facility] Address: [address] [place] [address] Performed By: #### 2 4323-8, 39870-9, 2777-1 ####[facility] LABCLIA [id number] [place] [address] [place] ALP [Catalytic activity/Vol] 99 U/L Normal 38-113 [facility] Comment on above: Order Comment: Speci men Type: BLOOD SPECIMENOrdering Facility: [facility] Address: [address] [place] [address] Performed By: #### 2 4323-8, 60145-3, 2777-1 ####[facility] LABCLIA [id number] [place] [id number] [place] ALT [Catalytic activity/Vol] 49 U/L Normal 10-54 [facility] Comment on above: Order Comment: Speci men Type: BLOOD SPECIMENOrdering Facility: [facility] Address: [address] [place] [address] Performed By: #### 2 4323-8, 10189-5, 2776-11 ####[facility] LABCLIA [id number] [address] [address] [place] Anion gap [Moles/Vol] 12 mmol/L Normal 9-18 [facility] Comment on above: Order Comment: Speci men Type: BLOOD SPECIMENOrdering Facility: [facility] Address: [address] [place], [place] [address] Performed By: #### 2 4323-8, , 2776-11 ####[facility] LABCLIA [id number] [place] [address] [place] AST [Catalytic activity/Vol] 33 U/L Normal 14-40 [facility] Comment on above: Order Comment: Speci men Type: BLOOD SPECIMENOrdering Facility: [facility] Address: [address] [place], [place] [address] Performed By: #### 2 4323-8, , 2776-11 ####[facility] LABIA [id number] [address] [address] [place] Bilirubin [Mass/Vol] 0.4 mg/dL Normal 0.2-1.3 [facility] Comment on above: Order Comment: Speci men Type: BLOOD SPECIMENOrdering Facility: [facility] Address: [address] [place] [address] Performed By: #### 2 4323-8, , 2776-11 ####[facility] LABIA [id number] [address] [address] [place] Calcium [Mass/Vol] 9.4 mg/dL Normal 8.5-10.2 [facility] Comment on above: Order Comment: Speci men Type: BLOOD SPECIMENOrdering Facility: [facility] Address: [address] [place], [place] [address] Performed By: #### 2 4323-8, 43459-1, 2776- ####[facility] LABCLIA [id number] [place] [id number] [place] Chloride [Moles/Vol] 105 mmol/L Normal 97-105 [facility] Comment on above: Order Comment: Speci men Type: BLOOD SPECIMENOrdering Facility: [facility] Address: [address] [place] [address] Performed By: #### 2 4323-8, 26169-6, 2776-11 ####[facility] LABIA [id number] [place] [address] [place] CO2 [Moles/Vol] 23 mmol/L Normal 22-30 [facility] Comment on above: Order Comment: Speci men Type: BLOOD SPECIMENOrdering Facility: [facility] Address: [address] [place] [address] Performed By: #### 2 4323-8, , 2776-11 ####[facility] LABIA [id number] [place] [address] [place] Creatinine [Mass/Vol] 2.65 mg/dL High 0.73-1.22 [facility] Comment on above: Order Comment: Speci men Type: BLOOD SPECIMENOrdering Facility: [facility] Address: [address] [place] [address] Performed By: #### 2 4323-8, 96919-2, 2776-11 ####[facility] LABIA [id number] [place] [address] [place] Creatinine and Glomerular filtration rate.predicted panel (S/P/Bld) 32 mL/min/1.73m??? Low >=60 [facility] Comment on above: Order Comment: Speci men Type: BLOOD SPECIMENOrdering Facility: [facility] Address: [address] [place] [address] Result Comment: Elba mated Glomerular Filtration Rate (eGFR) is calculated using the 2020 CKD-EPI creatinine equation. This equation utilizes serum creatinine, sex, and age as parameters. The creatinine assay has traceable calibration to isotope dilution-mass spectrometry. Refer to KDIGO guidelines for clinical interpretation. In patients with unstable renal function, e.g. those with acute kidney injury, the eGFR may not accurately reflect actual GFR. Performed By: #### 2 4323-8, , 2776-11 ####[facility] LABCLIA [id number] [address] [address] [place] Glucose [Mass/Vol] 100 mg/dL High 74-99 [facility] Comment on above: Order Comment: Specana hatch Type: BLOOD SPECIMENOrdering Facility: [facility] Address: [address] [place] [address] Result Comment: The [place] [employer] (ADA) provides guidance for cutoff values for fasting glucose and random glucose. The ADA defines fasting as no caloric intake for at least 8 hours. Fasting plasma glucose results between 100 to 125 mg/dL indicate increased risk for diabetes (prediabetes).Fasting plasma glucose results greater than or equal to 126 mg/dL meet the criteria for diagnosis of diabetes. In the absence of unequivocal hyperglycemia, results should be confirmed by repeat testing. In a patient with classic symptoms of hyperglycemia or hyperglycemic crisis, random plasma glucose results greater than or equal to 200 mg/dL meet the criteria for diagnosis of diabetes.Reference: Standards of Medical Care in Diabetes 2016, [place] [employer]. Diabetes Care. 2016.39(Suppl 1). Performed By: #### 2 4323-8, , 2776-11 ####[facility] LABCLIA [id number] [address] [address] [place] Potassium [Moles/Vol] 3.9 mmol/L Normal 3.7-5.1 [facility] Comment on above: Order Comment: Erini mamie Type: BLOOD SPECIMENOrdering Facility: [facility] Address: [address] [place] [address] Performed By: #### 2 4323-8, , 2776-11 ####[facility] LABCLIA [id number] [address] [address] [place] Protein [Mass/Vol] 6.1 g/dL Low 6.3-8.0 [facility] Comment on above: Order Comment: Speci men Type: BLOOD SPECIMENOrdering Facility: [facility] Address: [address] [place] [address] Performed By: #### 2 4323-8, , 2776-11 ####[facility] LABCLIA [id number] [place] [id number] [place] Sodium [Moles/Vol] 140 mmol/L Normal 136-144 [facility] Comment on above: Order Comment: Speci men Type: BLOOD SPECIMENOrdering Facility: [facility] Address: [address] [place] [address] Performed By: #### 2 4323-8, , 2776-11 ####[facility] LABIA [id number] [place] [id number] [place] Urea nitrogen [Mass/Vol] 38 mg/dL High 9-24 [facility] Comment on above: Order Comment: Speci men Type: BLOOD SPECIMENOrdering Facility: [facility] Address: [address] [place] [address] Performed By: #### 2 4323-8, , 2776-11 ####[facility] LABIA [id number] [address] [address] [place] Magnesium SerPl-mCncon 03-19 Magnesium [Mass/Vol] 2.3 mg/dL Normal 1.7-2.3 [facility] Comment on above: Order Comment: Speci men Type: BLOOD SPECIMENOrdering Facility: [facility] Address: [address] [place] [address] Performed By: #### 2 4323-8, , 2776-11 ####[facility] LABCLIA [id number] [place] [id number] [place] PT panel Coag (PPP)on 2023 INR Coag (PPP) [Relative time] 1.0 {INR} Normal 0.9-1.3 [facility] Comment on above: Order Comment: Speci men Type: BLOOD SPECIMENOrdering Facility: [facility] Address: [address] [place] [address] Result Comment: Linda min K Antagonist (VKA) Therapeutic Range: INR 2 to 3 (Target INR of 2.5)Note: For patients treated with VKA drugs, such as warfarin, the [place] [employer] 2012 Guideline recommends a therapeutic INR range of 2 to 3 (target INR of 2.5). This recommendation includes high-risk patients with antiphospholipid syndrome with previous arterial or venous thromboembolism, current-generation mechanical or bioprosthetic aortic heart valve replacement.Note: Patients with mechanical aortic valve replacement and additional risk factors for thromboembolic events (atrial fibrillation, previous thromboembolism, LV dysfunction, hypercoagulable conditions) or an older generation mechanical AVR (i.e., ball in-Cage) or any mechanical MVR should have a INR therapeutic range of 2.5 to 3.5 (target INR of 3).Nusrat GH, et al. Chest 2012, 141:7S-47SNishimsocorro RA, et al. [facility] 2017, 70: 252-289 Performed By: #### 3 4528-0 ####[facility] LABCLIA [id number] [place] [id number] [place] PT Coag (PPP) [Time] 11.1 s Normal 9.7-13.0 [facility] Comment on above: Order Comment: Speci men Type: BLOOD SPECIMENOrdering Facility: [facility] Address: [address] [place] [id number] Performed By: #### 3 4528-0 ####[facility] LABIA [id number] [place] [id number] [place] Phosphate SerPl-mCncon 03-19 Phosphate [Mass/Vol] 3.3 mg/dL Normal 2.7-4.8 [facility] Comment on above: Order Comment: Speci men Type: BLOOD SPECIMENOrdering Facility: [facility] Address: [address] [place] [address] Performed By: #### 2 4323-8, 59657-2, 2777-1 ####[facility] LABCLIA [id number] [place] [address] [place] aPTT PPPon 03-19-2024 aPTT Coag (PPP) [Time] 22.7 s Low 23.0-32.4 [facility] Comment on above: Order Comment: Speci men Type: BLOOD SPECIMENOrdering Facility: [facility] Address: [address] [place] [address] Performed By: #### 1 4979-9 ####[facility] LABCLIA [id number] [place] [address] [place] ARTERIAL BLOOD GASESon 03-18 Base deficit (BldA) [Moles/Vol] -1 mmol/L Normal -2-0 [facility] Comment on above: Order Comment: Speci men Type: ARTERIAL BLOOD SPECIMENOrdering Facility: [facility] Address: [address] [place] [address] Performed By: #### A LLBG ####[facility] LABCLIA [id number] [place] [address] [place] Body temperature 98.24 [degF] Normal [facility] Comment on above: Order Comment: Speci men Type: ARTERIAL BLOOD SPECIMENOrdering Facility: [facility] Address: [address] [place] [address] Performed By: #### A LLBG ####[facility] LABCLIA [id number] [place] [address] [place] Calcium.ionized (Bld) [Mass/Vol] 1.28 mmol/L Normal 1.08-1.30 [facility] Comment on above: Order Comment: Speci men Type: ARTERIAL BLOOD SPECIMENOrdering Facility: [facility] Address: [address] [place] [address] Performed By: #### A LLBG ####[facility] LABCLIA [id number] [place] [address] [place] Calcium.ionized adjusted to pH 7.4 (BldA) [Moles/Vol] 1.26 mmol/L Normal 1.08-1.30 [facility] Comment on above: Order Comment: Speci men Type: ARTERIAL BLOOD SPECIMENOrdering Facility: [facility] Address: [address] [place] [address] Performed By: #### A LLBG ####[facility] LABCLIA [id number] [place] [address] [place] Carboxyhemoglobin (BldA) [Mass fraction] 1.7 % Normal 0.0-2.0 [facility] Comment on above: Order Comment: Speci men Type: ARTERIAL BLOOD SPECIMENOrdering Facility: [facility] Address: [address] [place] [address] Result Comment: Carb oxyhemoglobin Reference Range for Smokers: 2.0-8.0% Performed By: #### A LLBG ####[facility] LABCLIA [id number] [place] [address] [place] CO2 (Bld) [Partial pressure] 41 mm Hg Normal 36-46 [facility] Comment on above: Order Comment: Speci men Type: ARTERIAL BLOOD SPECIMENOrdering Facility: [facility] Address: [address] [place] [address] Performed By: #### A LLBG ####[facility] LABCLIA [id number] [place] [address] [place] CO2 adjusted to patient's actual temperature (Bld) [Partial pressure] 40 mmHg Normal 36-46 [facility] Comment on above: Order Comment: Speci men Type: ARTERIAL BLOOD SPECIMENOrdering Facility: [facility] Address: [address] [place] [address] Performed By: #### A LLBG ####[facility] LABCLIA [id number] [place] [address] [place] Glucose [Mass/Vol] 134 mg/dL High 60-105 [facility] Comment on above: Order Comment: Speci men Type: ARTERIAL BLOOD SPECIMENOrdering Facility: [facility] Address: [address] [place] [address] Performed By: #### A LLBG ####[facility] LABCLIA [id number] [place] [address] [place] HCO3 (Bld) [Moles/Vol] 23 mmol/L Normal 22-26 [facility] Comment on above: Order Comment: Speci men Type: ARTERIAL BLOOD SPECIMENOrdering Facility: [facility] Address: [address] [place] [address] Performed By: #### A LLBG ####[facility] LABCLIA [id number] [place] [address] [place] Hematocrit (Bld) [Volume fraction] 35.0 % Low 39.0-51.0 [facility] Comment on above: Order Comment: Speci men Type: ARTERIAL BLOOD SPECIMENOrdering Facility: [facility] Address: [address] [place] [address] Performed By: #### A LLBG ####[facility] LABCLIA [id number] [place] [address] [place] Hemoglobin (Bld) [Mass/Vol] 11.3 g/dL Low 13.0-17.0 [facility] Comment on above: Order Comment: Speci men Type: ARTERIAL BLOOD SPECIMENOrdering Facility: [facility] Address: [address] [place] [address] Performed By: #### A LLBG ####[facility] LABCLIA [id number] [place] [address] [place] Lactate [Moles/Vol] 1.5 mmol/L Normal 0.5-2.2 [facility] Comment on above: Order Comment: Speci men Type: ARTERIAL BLOOD SPECIMENOrdering Facility: [facility] Address: [address] [place] [place] [id number] Performed By: #### A LLBG ####[facility] LABCLIA [id number] [place] [address] [place] Methemoglobin (Bld) [Mass fraction] 0.6 % Normal 0.0-1.5 [facility] Comment on above: Order Comment: Speci men Type: ARTERIAL BLOOD SPECIMENOrdering Facility: [facility] Address: [address] [place] [address] Performed By: #### A LLBG ####[facility] LABCLIA [id number] [address] [place] O2 THERAPY RA=Room Air Normal [facility] Comment on above: Order Comment: Speci men Type: ARTERIAL BLOOD SPECIMENOrdering Facility: [facility] Address: [address] [place] [address] Performed By: #### A LLBG ####[facility] LABCLIA [id number] [place] [id number] [place] Oxygen (Bld) [Partial pressure] 80 mm Hg Low 85-95 [facility] Comment on above: Order Comment: Speci men Type: ARTERIAL BLOOD SPECIMENOrdering Facility: [facility] Address: [address] [place] [address] Performed By: #### A LLBG ####[facility] LABCLIA [id number] [place] [address] [place] Oxygen adjusted to patient's actual temperature (Bld) [Partial pressure] 79 mmHg Low 85-95 [facility] Comment on above: Order Comment: Speci men Type: ARTERIAL BLOOD SPECIMENOrdering Facility: [facility] Address: [address] [place] [address] Performed By: #### A LLBG ####[facility] LABCLIA [id number] [place] [address] [place] Oxyhemoglobin (BldA) [Mass fraction] 94 % Low 95-98 [facility] Comment on above: Order Comment: Speci men Type: ARTERIAL BLOOD SPECIMENOrdering Facility: [facility] Address: [address] [place] [address] Performed By: #### A LLBG ####[facility] LABIA [id number] [place] [address] [place] pH (Bld) 7.37 [pH] Normal 7.35-7.45 [facility] Comment on above: Order Comment: Speci men Type: ARTERIAL BLOOD SPECIMENOrdering Facility: [facility] Address: [address] [place] [address] Performed By: #### A LLBG ####[facility] LABIA [id number] [place] [address] [place] pH adjusted to patient's actual temperature (Bld) 7.38 Normal 7.35-7.45 [facility] Comment on above: Order Comment: Speci men Type: ARTERIAL BLOOD SPECIMENOrdering Facility: [facility] Address: [address] [place] [address] Performed By: #### A LLBG ####[facility] LABIA [id number] [place] [address] [place] PO2 / FIO2 RATIO 381 mmHg Normal >300 [facility] Comment on above: Order Comment: Speci men Type: ARTERIAL BLOOD SPECIMENOrdering Facility: [facility] Address: [address] [place] [address] Performed By: #### A LLBG ####[facility] LABIA [id number] [place] [address] [place] Potassium [Moles/Vol] 4.1 mmol/L Normal 3.5-5.0 [facility] Comment on above: Order Comment: Speci men Type: ARTERIAL BLOOD SPECIMENOrdering Facility: [facility] Address: [address] [place] [address] Performed By: #### A LLBG ####[facility] LABCLIA [id number] [place] [address] [place] Sodium [Moles/Vol] 139 mmol/L Normal 136-144 [facility] Comment on above: Order Comment: Speci men Type: ARTERIAL BLOOD SPECIMENOrdering Facility: [facility] Address: [address] [place] [address] Performed By: #### A LLBG ####[facility] LABCLIA [id number] [place] [address] [place] Base deficit (BldA) [Moles/Vol] -2 mmol/L Normal -2-0 [facility] Comment on above: Order Comment: Speci men Type: ARTERIAL BLOOD SPECIMENOrdering Facility: [facility] Address: [address] [place] [address] Performed By: #### A LLBG ####[facility] LABCLIA [id number] [place] [address] [place] Body temperature 98.24 [degF] Normal [facility] Comment on above: Order Comment: Speci men Type: ARTERIAL BLOOD SPECIMENOrdering Facility: [facility] Address: [address] [place] [address] Performed By: #### A LLBG ####[facility] LABCLIA [id number] [place] [address] [place] Calcium.ionized (Bld) [Mass/Vol] 1.28 mmol/L Normal 1.08-1.30 [facility] Comment on above: Order Comment: Speci men Type: ARTERIAL BLOOD SPECIMENOrdering Facility: [facility] Address: [address] [place] [address] Performed By: #### A LLBG ####[facility] LABCLIA [id number] [place] [address] [place] Calcium.ionized adjusted to pH 7.4 (BldA) [Moles/Vol] 1.26 mmol/L Normal 1.08-1.30 [facility] Comment on above: Order Comment: Speci men Type: ARTERIAL BLOOD SPECIMENOrdering Facility: [facility] Address: [address] [place] [address] Performed By: #### A LLBG ####[facility] LABIA [id number] [place] [address] [place] Carboxyhemoglobin (BldA) [Mass fraction] 1.5 % Normal 0.0-2.0 [facility] Comment on above: Order Comment: Speci men Type: ARTERIAL BLOOD SPECIMENOrdering Facility: [facility] Address: [address] [place] [address] Result Comment: Carb oxyhemoglobin Reference Range for Smokers: 2.0-8.0% Performed By: #### A LLBG ####[facility] LABIA [id number] [place] [address] [place] CO2 (Bld) [Partial pressure] 40 mm Hg Normal 36-46 [facility] Comment on above: Order Comment: Speci men Type: ARTERIAL BLOOD SPECIMENOrdering Facility: [facility] Address: [address] [place] [address] Performed By: #### A LLBG ####[facility] LABCLIA [id number] [place] [address] [place] CO2 adjusted to patient's actual temperature (Bld) [Partial pressure] 40 mmHg Normal 36-46 [facility] Comment on above: Order Comment: Speci men Type: ARTERIAL BLOOD SPECIMENOrdering Facility: [facility] Address: [address] [place] [address] Performed By: #### A LLBG ####[facility] LABCLIA [id number] [place] [address] [place] Glucose [Mass/Vol] 134 mg/dL High 60-105 [facility] Comment on above: Order Comment: Speci men Type: ARTERIAL BLOOD SPECIMENOrdering Facility: [facility] Address: [address] [place] [address] Performed By: #### A LLBG ####[facility] LABCLIA [id number] [place] [address] [place] HCO3 (Bld) [Moles/Vol] 23 mmol/L Normal 22-26 [facility] Comment on above: Order Comment: Speci men Type: ARTERIAL BLOOD SPECIMENOrdering Facility: [facility] Address: [address] [place] [address] Performed By: #### A LLBG ####[facility] LABCLIA [id number] [place] [address] [place] Hematocrit (Bld) [Volume fraction] 34.0 % Low 39.0-51.0 [facility] Comment on above: Order Comment: Speci men Type: ARTERIAL BLOOD SPECIMENOrdering Facility: [facility] Address: [address] [place] [address] Performed By: #### A LLBG ####[facility] LABCLIA [id number] [place] [address] [place] Hemoglobin (Bld) [Mass/Vol] 11.0 g/dL Low 13.0-17.0 [facility] Comment on above: Order Comment: Speci men Type: ARTERIAL BLOOD SPECIMENOrdering Facility: [facility] Address: [address] [place] [address] Performed By: #### A LLBG ####[facility] LABCLIA [id number] [place] [address] [place] Lactate [Moles/Vol] 1.5 mmol/L Normal 0.5-2.2 [facility] Comment on above: Order Comment: Speci men Type: ARTERIAL BLOOD SPECIMENOrdering Facility: [facility] Address: [address] [place] [address] Performed By: #### A LLBG ####[facility] LABCLIA [id number] [address] [address] [place] Methemoglobin (Bld) [Mass fraction] 0.4 % Normal 0.0-1.5 [facility] Comment on above: Order Comment: Speci men Type: ARTERIAL BLOOD SPECIMENOrdering Facility: [facility] Address: [address] [place] [id number] Performed By: #### A LLBG ####[facility] LABCLIA [id number] [place] [address] [place] O2 THERAPY Ventilator Normal [facility] Comment on above: Order Comment: Speci men Type: ARTERIAL BLOOD SPECIMENOrdering Facility: [facility] Address: [address] [place] [id number] Performed By: #### A LLBG ####[facility] LABCLIA [id number] [place] [address] [place] Oxygen (Bld) [Partial pressure] 101 mm Hg High 85-95 [facility] Comment on above: Order Comment: Speci men Type: ARTERIAL BLOOD SPECIMENOrdering Facility: [facility] Address: [address] [place] [address] Performed By: #### A LLBG ####[facility] LABCLIA [id number] [address] [address] [place] Oxygen adjusted to patient's actual temperature (Bld) [Partial pressure] 100 mmHg High 85-95 [facility] Comment on above: Order Comment: Speci men Type: ARTERIAL BLOOD SPECIMENOrdering Facility: [facility] Address: [address] [place] [address] Performed By: #### A LLBG ####[facility] LABCLIA [id number] [place] [id number] [place] Oxyhemoglobin (BldA) [Mass fraction] 97 % Normal 95-98 [facility] Comment on above: Order Comment: Speci men Type: ARTERIAL BLOOD SPECIMENOrdering Facility: [facility] Address: [address] [place] [address] Performed By: #### A LLBG ####[facility] LABCLIA [id number] [place] [address] [place] pH (Bld) 7.37 [pH] Normal 7.35-7.45 [facility] Comment on above: Order Comment: Speci men Type: ARTERIAL BLOOD SPECIMENOrdering Facility: [facility] Address: [address] [place] [address] Performed By: #### A LLBG ####[facility] LABCLIA [id number] [place] [address] [place] pH adjusted to patient's actual temperature (Bld) 7.38 Normal 7.35-7.45 [facility] Comment on above: Order Comment: Speci men Type: ARTERIAL BLOOD SPECIMENOrdering Facility: [facility] Address: [address] [place] [address] Performed By: #### A LLBG ####[facility] LABCLIA [id number] [place] [address] [place] Potassium [Moles/Vol] 4.1 mmol/L Normal 3.5-5.0 [facility] Comment on above: Order Comment: Speci men Type: ARTERIAL BLOOD SPECIMENOrdering Facility: [facility] Address: [address] [place] [address] Performed By: #### A LLBG ####[facility] LABCLIA [id number] [place] [address] [place] Sodium [Moles/Vol] 138 mmol/L Normal 136-144 [facility] Comment on above: Order Comment: Speci men Type: ARTERIAL BLOOD SPECIMENOrdering Facility: [facility] Address: [address] [place] [address] Performed By: #### A LLBG ####[facility] LABCLIA [id number] [place] [address] [place] Base deficit (BldA) [Moles/Vol] -2 mmol/L Normal -2-0 [facility] Comment on above: Order Comment: Speci men Type: ARTERIAL BLOOD SPECIMENOrdering Facility: [facility] Address: [address] [place] [address] Performed By: #### A LLBG ####[facility] LABIA [id number] [place] [address] [place] Body temperature 98.6 [degF] Normal [facility] Comment on above: Order Comment: Speci men Type: ARTERIAL BLOOD SPECIMENOrdering Facility: [facility] Address: [address] [place] [address] Performed By: #### A LLBG ####[facility] LABIA [id number] [place] [address] [place] Calcium.ionized (Bld) [Mass/Vol] 1.29 mmol/L Normal 1.08-1.30 [facility] Comment on above: Order Comment: Speci men Type: ARTERIAL BLOOD SPECIMENOrdering Facility: [facility] Address: [address] [place] [address] Performed By: #### A LLBG ####[facility] LABCLIA [id number] [place] [address] [place] Calcium.ionized adjusted to pH 7.4 (BldA) [Moles/Vol] 1.28 mmol/L Normal 1.08-1.30 [facility] Comment on above: Order Comment: Speci men Type: ARTERIAL BLOOD SPECIMENOrdering Facility: [facility] Address: [address] [place] [address] Performed By: #### A LLBG ####[facility] LABCLIA [id number] [place] [address] [place] Carboxyhemoglobin (BldA) [Mass fraction] 1.3 % Normal 0.0-2.0 [facility] Comment on above: Order Comment: Speci men Type: ARTERIAL BLOOD SPECIMENOrdering Facility: [facility] Address: [address] [place] [address] Result Comment: Carb oxyhemoglobin Reference Range for Smokers: 2.0-8.0% Performed By: #### A LLBG ####[facility] LABCLIA [id number] [place] [address] [place] CO2 (Bld) [Partial pressure] 39 mm Hg Normal 36-46 [facility] Comment on above: Order Comment: Speci men Type: ARTERIAL BLOOD SPECIMENOrdering Facility: [facility] Address: [address] [place] [address] Performed By: #### A LLBG ####[facility] LABCLIA [id number] [place] [address] [place] FIO2 40 % Normal [facility] Comment on above: Order Comment: Speci men Type: ARTERIAL BLOOD SPECIMENOrdering Facility: [facility] Address: [address] [place] [address] Performed By: #### A LLBG ####[facility] LABCLIA [id number] [place] [address] [place] Glucose [Mass/Vol] 140 mg/dL High 60-105 [facility] Comment on above: Order Comment: Speci men Type: ARTERIAL BLOOD SPECIMENOrdering Facility: [facility] Address: [address] [place] [address] Performed By: #### A LLBG ####[facility] LABCLIA [id number] [place] [address] [place] HCO3 (Bld) [Moles/Vol] 23 mmol/L Normal 22-26 [facility] Comment on above: Order Comment: Speci men Type: ARTERIAL BLOOD SPECIMENOrdering Facility: [facility] Address: [address] [place] [address] Performed By: #### A LLBG ####[facility] LABCLIA [id number] [place] [address] [place] Hematocrit (Bld) [Volume fraction] 36.5 % Low 39.0-51.0 [facility] Comment on above: Order Comment: Speci men Type: ARTERIAL BLOOD SPECIMENOrdering Facility: [facility] Address: [address] [place] [address] Performed By: #### A LLBG ####[facility] LABCLIA [id number] [place] [address] [place] Hemoglobin (Bld) [Mass/Vol] 11.9 g/dL Low 13.0-17.0 [facility] Comment on above: Order Comment: Speci men Type: ARTERIAL BLOOD SPECIMENOrdering Facility: [facility] Address: [address] [place] [address] Performed By: #### A LLBG ####[facility] LABCLIA [id number] [place] [address] [place] Lactate [Moles/Vol] 1.6 mmol/L Normal 0.5-2.2 [facility] Comment on above: Order Comment: Speci men Type: ARTERIAL BLOOD SPECIMENOrdering Facility: [facility] Address: [address] [place] [address] Performed By: #### A LLBG ####[facility] LABCLIA [id number] [place] [address] [place] Methemoglobin (Bld) [Mass fraction] 1.2 % Normal 0.0-1.5 [facility] Comment on above: Order Comment: Speci men Type: ARTERIAL BLOOD SPECIMENOrdering Facility: [facility] Address: [address] [place] [address] Performed By: #### A LLBG ####[facility] LABCLIA [id number] [place] [id number] [place] O2 THERAPY Ventilator Normal [facility] Comment on above: Order Comment: Speci men Type: ARTERIAL BLOOD SPECIMENOrdering Facility: [facility] Address: [address] [place] [id number] Performed By: #### A LLBG ####[facility] LABCLIA [id number] [place] [address] [place] Oxygen (Bld) [Partial pressure] 138 mm Hg High 85-95 [facility] Comment on above: Order Comment: Speci men Type: ARTERIAL BLOOD SPECIMENOrdering Facility: [facility] Address: [address] [place] [address] Performed By: #### A LLBG ####[facility] LABCLIA [id number] [place] [address] [place] Oxyhemoglobin (BldA) [Mass fraction] 97 % Normal 95-98 [facility] Comment on above: Order Comment: Speci men Type: ARTERIAL BLOOD SPECIMENOrdering Facility: [facility] Address: [address] [place] [address] Performed By: #### A LLBG ####[facility] LABCLIA [id number] [place] [address] [place] pH (Bld) 7.38 [pH] Normal 7.35-7.45 [facility] Comment on above: Order Comment: Speci men Type: ARTERIAL BLOOD SPECIMENOrdering Facility: [facility] Address: [address] [place] [address] Performed By: #### A LLBG ####[facility] LABCLIA [id number] [place] [address] [place] PO2 / FIO2 RATIO 345 mmHg Normal >300 [facility] Comment on above: Order Comment: Speci men Type: ARTERIAL BLOOD SPECIMENOrdering Facility: [facility] Address: [address] [place] [address] Performed By: #### A LLBG ####[facility] LABCLIA [id number] [place] [address] [place] Potassium [Moles/Vol] 4.4 mmol/L Normal 3.5-5.0 [facility] Comment on above: Order Comment: Speci men Type: ARTERIAL BLOOD SPECIMENOrdering Facility: [facility] Address: [address] [place] [address] Performed By: #### A LLBG ####[facility] LABCLIA [id number] [place] [address] [place] Sodium [Moles/Vol] 138 mmol/L Normal 136-144 [facility] Comment on above: Order Comment: Speci men Type: ARTERIAL BLOOD SPECIMENOrdering Facility: [facility] Address: [address] [place] [address] Performed By: #### A LLBG ####[facility] LABIA [id number] [place] [address] [place] CASE MGT INIT ASSESon 2023 CASE MGT INIT ASSES Normal [facility] CBC panel Auto (Bld)on 03-18 Erythrocyte distribution width (RBC) [Ratio] 14.4 % Normal 11.5-15.0 [facility] Comment on above: Order Comment: Speci men Type: BLOOD SPECIMENOrdering Facility: [facility] Address: [address] [place] [address] Performed By: #### 5 8410-2 ####[facility] LABIA [id number] [place] [address] [place] Hematocrit (Bld) [Volume fraction] 34.1 % Low 39.0-51.0 [facility] Comment on above: Order Comment: Speci men Type: BLOOD SPECIMENOrdering Facility: [facility] Address: [address] [place] [address] Performed By: #### 5 8410-2 ####[facility] LABIA [id number] [place] [address] [place] Hemoglobin (Bld) [Mass/Vol] 11.6 g/dL Low 13.0-17.0 [facility] Comment on above: Order Comment: Speci men Type: BLOOD SPECIMENOrdering Facility: [facility] Address: [address] [place] [address] Performed By: #### 5 8410-2 ####[facility] LABIA [id number] [place] [address] [place] MCH (RBC) [Entitic mass] 29.6 pg Normal 26.0-34.0 [facility] Comment on above: Order Comment: Speci men Type: BLOOD SPECIMENOrdering Facility: [facility] Address: [address] [place] [address] Performed By: #### 5 8410-2 ####[facility] [id number] [place] [address] [place] MCHC (RBC) [Mass/Vol] 34.0 g/dL Normal 30.5-36.0 [facility] Comment on above: Order Comment: Speci men Type: BLOOD SPECIMENOrdering Facility: [facility] Address: [address] [place] [address] Performed By: #### 5 8410-2 ####[facility] [id number] [place] [address] [place] MCV (RBC) [Entitic vol] 87.0 fL Normal 80.0-100.0 [facility] Comment on above: Order Comment: Speci men Type: BLOOD SPECIMENOrdering Facility: [facility] Address: [address] [place] [address] Performed By: #### 5 8410-2 ####[facility] [id number] [place] [address] [place] Nucleated RBC (Bld) [#/Vol] 10*3/uL Normal <0.01 [facility] Comment on above: Order Comment: Speci men Type: BLOOD SPECIMENOrdering Facility: [facility] Address: [address] [place] [address] Performed By: #### 5 8410-2 ####[facility] LABIA [id number] [place] [address] [place] Platelet mean volume (Bld) [Entitic vol] 9.1 fL Normal 9.0-12.7 [facility] Comment on above: Order Comment: Speci men Type: BLOOD SPECIMENOrdering Facility: [facility] Address: [address] [place] [address] Performed By: #### 5 8410-2 ####[facility] LABIA [id number] [place] [address] [place] Platelets (Bld) [#/Vol] 196 10*3/uL Normal 150-400 [facility] Comment on above: Order Comment: Speci men Type: BLOOD SPECIMENOrdering Facility: [facility] Address: [address] [place] [address] Performed By: #### 5 8410-2 ####[facility] LABIA [id number] [place] [address] [place] RBC (Bld) [#/Vol] 3.92 10*6/uL Low 4.20-6.00 [facility] Comment on above: Order Comment: Speci men Type: BLOOD SPECIMENOrdering Facility: [facility] Address: [address] [place] [address] Performed By: #### 5 8410-2 ####[facility] LABIA [id number] [place] [address] [place] WBC (Bld) [#/Vol] 11.60 10*3/uL High 3.70-11.00 [facility] Comment on above: Order Comment: Speci men Type: BLOOD SPECIMENOrdering Facility: [facility] Address: [address] [place] [address] Performed By: #### 5 8410-2 ####[facility] LABIA [id number] [place] [id number] [place] Comprehensive metabolic 2000 panelon 03-18-2024 Albumin [Mass/Vol] 4.0 g/dL Normal 3.9-4.9 [facility] Comment on above: Order Comment: Speci men Type: BLOOD SPECIMENOrdering Facility: [facility] Address: [address] [place] [address] Performed By: #### 2 4323-8, , 2776- ####[facility] LABIA [id number] [place] [address] [place] ALP [Catalytic activity/Vol] 108 U/L Normal 38-113 [facility] Comment on above: Order Comment: Speci men Type: BLOOD SPECIMENOrdering Facility: [facility] Address: [address] [place] [address] Performed By: #### 2 4323-8, , 2776-11 ####[facility] LABIA [id number] [place] [address] [place] ALT [Catalytic activity/Vol] 59 U/L High 10-54 [facility] Comment on above: Order Comment: Speci men Type: BLOOD SPECIMENOrdering Facility: [facility] Address: [address] [place] [address] Performed By: #### 2 4323-8, 34041-0, 2776-11 ####[facility] LABIA [id number] [place] [id number] [place] Anion gap [Moles/Vol] 12 mmol/L Normal 9-18 [facility] Comment on above: Order Comment: Speci men Type: BLOOD SPECIMENOrdering Facility: [facility] Address: [address] [place] [address] Performed By: #### 2 4323-8, , 2776-11 ####[facility] LABCLIA [id number] [address] [address] [place] AST [Catalytic activity/Vol] 47 U/L High 14-40 [facility] Comment on above: Order Comment: Speci men Type: BLOOD SPECIMENOrdering Facility: [facility] Address: [address] [place], [place] [address] Performed By: #### 2 4323-8, , 2776-11 ####[facility] LABIA [id number] [place] [address] [place] Bilirubin [Mass/Vol] 0.5 mg/dL Normal 0.2-1.3 [facility] Comment on above: Order Comment: Speci men Type: BLOOD SPECIMENOrdering Facility: [facility] Address: [address] [place] [address] Performed By: #### 2 4323-8, , 2776-11 ####[facility] LABIA [id number] [place] [address] [place] Calcium [Mass/Vol] 9.9 mg/dL Normal 8.5-10.2 [facility] Comment on above: Order Comment: Speci men Type: BLOOD SPECIMENOrdering Facility: [facility] Address: [address] [place], [place] [address] Performed By: #### 2 4323-8, , 2776-11 ####[facility] LABIA [id number] [place] [id number] [place] Chloride [Moles/Vol] 103 mmol/L Normal 97-105 [facility] Comment on above: Order Comment: Speci men Type: BLOOD SPECIMENOrdering Facility: [facility] Address: [address] [place] [address] Performed By: #### 2 4323, , 2776-11 ####[facility] LABCLIA [id number] [place] [id number] [place] CO2 [Moles/Vol] 23 mmol/L Normal 22-30 [facility] Comment on above: Order Comment: Speci men Type: BLOOD SPECIMENOrdering Facility: [facility] Address: [address] [place] [address] Performed By: #### 2 4323-8, , 2776-11 ####[facility] LABIA [id number] [address] [address] [place] Creatinine [Mass/Vol] 2.90 mg/dL High 0.73-1.22 [facility] Comment on above: Order Comment: Speci men Type: BLOOD SPECIMENOrdering Facility: [facility] Address: [address] [place] [address] Performed By: #### 2 4328, , 2776-11 ####[facility] LABIA [id number] [place] [address] [place] Creatinine and Glomerular filtration rate.predicted panel (S/P/Bld) 28 mL/min/1.73m??? Low >=60 [facility] Comment on above: Order Comment: Speci men Type: BLOOD SPECIMENOrdering Facility: [facility] Address: [address] [place] [address] Result Comment: Elba mated Glomerular Filtration Rate (eGFR) is calculated using the 2020 CKD-EPI creatinine equation. This equation utilizes serum creatinine, sex, and age as parameters. The creatinine assay has traceable calibration to isotope dilution-mass spectrometry. Refer to KDIGO guidelines for clinical interpretation. In patients with unstable renal function, e.g. those with acute kidney injury, the eGFR may not accurately reflect actual GFR. Performed By: #### 2 4323-8, , 2776-11 ####[facility] LABIA [id number] [address] [address] [place] Glucose [Mass/Vol] 137 mg/dL High 74-99 [facility] Comment on above: Order Comment: Speci men Type: BLOOD SPECIMENOrdering Facility: [facility] Address: [address] [place] [address] Result Comment: The [place] [employer] (ADA) provides guidance for cutoff values for fasting glucose and random glucose. The ADA defines fasting as no caloric intake for at least 8 hours. Fasting plasma glucose results between 100 to 125 mg/dL indicate increased risk for diabetes (prediabetes).Fasting plasma glucose results greater than or equal to 126 mg/dL meet the criteria for diagnosis of diabetes. In the absence of unequivocal hyperglycemia, results should be confirmed by repeat testing. In a patient with classic symptoms of hyperglycemia or hyperglycemic crisis, random plasma glucose results greater than or equal to 200 mg/dL meet the criteria for diagnosis of diabetes.Reference: Standards of Medical Care in Diabetes 2016, [place] [employer]. Diabetes Care. 2016.39(Suppl 1). Performed By: #### 2 4323-8, , 2776-11 ####[facility] LABCLIA [id number] [place] [address] [place] Potassium [Moles/Vol] 4.5 mmol/L Normal 3.7-5.1 [facility] Comment on above: Order Comment: Speci men Type: BLOOD SPECIMENOrdering Facility: [facility] Address: [address] [place], [place] [address] Performed By: #### 2 4323-8, , 2776-11 ####[facility] LABCLIA [id number] [place] [id number] [place] Protein [Mass/Vol] 6.3 g/dL Normal 6.3-8.0 [facility] Comment on above: Order Comment: Speci men Type: BLOOD SPECIMENOrdering Facility: [facility] Address: [address] [place], [place] [address] Performed By: #### 2 4323-8, , 2776- ####[facility] LABCLIA [id number] [place] [id number] [place] Sodium [Moles/Vol] 138 mmol/L Normal 136-144 [facility] Comment on above: Order Comment: Speci men Type: BLOOD SPECIMENOrdering Facility: [facility] Address: [address] [place] [address] Performed By: #### 2 4323-8, 33672-1, 2777-1 ####[facility] LABIA [id number] [place] [address] [place] Urea nitrogen [Mass/Vol] 36 mg/dL High 9-24 [facility] Comment on above: Order Comment: Speci men Type: BLOOD SPECIMENOrdering Facility: [facility] Address: [address] [place] [address] Performed By: #### 2 4323-8, 67983-3, 2777-1 ####[facility] LABIA [id number] [place] [address] [place] Magnesium SerPl-mCncon 03-18 Magnesium [Mass/Vol] 2.2 mg/dL Normal 1.7-2.3 [facility] Comment on above: Order Comment: Speci men Type: BLOOD SPECIMENOrdering Facility: [facility] Address: [address] [place] [address] Performed By: #### 2 4323-8, 62597-8, 2777-1 ####[facility] [id number] [place] [id number] [place] PT panel Coag (PPP)on 2023 INR Coag (PPP) [Relative time] 1.1 {INR} Normal 0.9-1.3 [facility] Comment on above: Order Comment: Speci men Type: BLOOD SPECIMENOrdering Facility: [facility] Address: [address] [place] [address] Result Comment: Linda min K Antagonist (VKA) Therapeutic Range: INR 2 to 3 (Target INR of 2.5)Note: For patients treated with VKA drugs, such as warfarin, the [place] [employer] 2012 Guideline recommends a therapeutic INR range of 2 to 3 (target INR of 2.5). This recommendation includes high-risk patients with antiphospholipid syndrome with previous arterial or venous thromboembolism, current-generation mechanical or bioprosthetic aortic heart valve replacement.Note: Patients with mechanical aortic valve replacement and additional risk factors for thromboembolic events (atrial fibrillation, previous thromboembolism, LV dysfunction, hypercoagulable conditions) or an older generation mechanical AVR (i.e., ball in-Cage) or any mechanical MVR should have a INR therapeutic range of 2.5 to 3.5 (target INR of 3).Nusrat GH, et al. Chest 2012, 141:7S-47SNishimura RA, et al. [facility] 2017, 70: 252-289 Performed By: #### 3 4528-0, 37562-7 ####[facility] LABCLIA [id number] [place] [address] [place] PT Coag (PPP) [Time] 11.2 s Normal 9.7-13.0 [facility] Comment on above: Order Comment: Speci men Type: BLOOD SPECIMENOrdering Facility: [facility] Address: [address] [place] [address] Performed By: #### 3 4528-0, 86355-0 ####[facility] LABCLIA [id number] [place] [address] [place] Phosphate SerPl-mCncon 03-18 Phosphate [Mass/Vol] 3.6 mg/dL Normal 2.7-4.8 [facility] Comment on above: Order Comment: Speci men Type: BLOOD SPECIMENOrdering Facility: [facility] Address: [address] [place] [address] Performed By: #### 2 4323-8, 67161-6, 2777-1 ####[facility] LABCLIA [id number] [place] [address] [place] THERAPY NTon 03-18-2024 THERAPY NT Normal [facility] THERAPY NT Normal [facility] aPTT PPPon 03-18-2024 aPTT Coag (PPP) [Time] 27.3 s Normal 23.0-32.4 Cl [facility] Comment on above: Order Comment: Speci men Type: BLOOD SPECIMENOrdering Facility: [facility] Address: [address] [place] [address] Performed By: #### 3 4528-0, 35257-6 ####[facility] LABIA [id number] [place] [address] [place] ANES POSTPROC EVALon 024 ANES POSTPROC EVAL Normal [facility] ANES PRE-OPon 03-17-2024 ANES PRE-OP Normal [facility] ARTERIAL BLOOD GASESon 03-17 Base deficit (BldA) [Moles/Vol] -3 mmol/L Low -2-0 [facility] Comment on above: Order Comment: Speci men Type: ARTERIAL BLOOD SPECIMENOrdering Facility: [facility] Address: [address] [place] [address] Performed By: #### A LLBG ####[facility] LABIA [id number] [place] [address] [place] Body temperature 98.6 [degF] Normal [facility] Comment on above: Order Comment: Speci men Type: ARTERIAL BLOOD SPECIMENOrdering Facility: [facility] Address: [address] [place] [address] Performed By: #### A LLBG ####[facility] LABIA [id number] [place] [address] [place] Calcium.ionized (Bld) [Mass/Vol] 1.28 mmol/L Normal 1.08-1.30 [facility] Comment on above: Order Comment: Speci men Type: ARTERIAL BLOOD SPECIMENOrdering Facility: [facility] Address: [address] [place] [address] Performed By: #### A LLBG ####[facility] LABCLIA [id number] [place] [address] [place] Calcium.ionized adjusted to pH 7.4 (BldA) [Moles/Vol] 1.24 mmol/L Normal 1.08-1.30 [facility] Comment on above: Order Comment: Speci men Type: ARTERIAL BLOOD SPECIMENOrdering Facility: [facility] Address: [address] [place] [address] Performed By: #### A LLBG ####[facility] LABIA [id number] [place] [address] [place] Carboxyhemoglobin (BldA) [Mass fraction] 1.7 % Normal 0.0-2.0 [facility] Comment on above: Order Comment: Speci men Type: ARTERIAL BLOOD SPECIMENOrdering Facility: [facility] Address: [address] [place] [address] Result Comment: Carb oxyhemoglobin Reference Range for Smokers: 2.0-8.0% Performed By: #### A LLBG ####[facility] LABIA [id number] [place] [address] [place] CO2 (Bld) [Partial pressure] 42 mm Hg Normal 36-46 [facility] Comment on above: Order Comment: Speci men Type: ARTERIAL BLOOD SPECIMENOrdering Facility: [facility] Address: [address] [place] [address] Performed By: #### A LLBG ####[facility] LABCLIA [id number] [place] [address] [place] Glucose [Mass/Vol] 172 mg/dL High 60-105 [facility] Comment on above: Order Comment: Speci men Type: ARTERIAL BLOOD SPECIMENOrdering Facility: [facility] Address: [address] [place] [address] Performed By: #### A LLBG ####[facility] LABIA [id number] [place] [address] [place] HCO3 (Bld) [Moles/Vol] 22 mmol/L Normal 22-26 [facility] Comment on above: Order Comment: Speci men Type: ARTERIAL BLOOD SPECIMENOrdering Facility: [facility] Address: [address] [place] [address] Performed By: #### A LLBG ####[facility] LABCLIA [id number] [place] [address] [place] Hematocrit (Bld) [Volume fraction] 36.0 % Low 39.0-51.0 [facility] Comment on above: Order Comment: Speci men Type: ARTERIAL BLOOD SPECIMENOrdering Facility: [facility] Address: [address] [place] [address] Performed By: #### A LLBG ####[facility] LABCLIA [id number] [place] [address] [place] Hemoglobin (Bld) [Mass/Vol] 11.7 g/dL Low 13.0-17.0 [facility] Comment on above: Order Comment: Speci men Type: ARTERIAL BLOOD SPECIMENOrdering Facility: [facility] Address: [address] [place] [address] Performed By: #### A LLBG ####[facility] LABCLIA [id number] [place] [address] [place] Lactate [Moles/Vol] 2.9 mmol/L High 0.5-2.2 [facility] Comment on above: Order Comment: Speci men Type: ARTERIAL BLOOD SPECIMENOrdering Facility: [facility] Address: [address] [place] [address] Performed By: #### A LLBG ####[facility] LABCLIA [id number] [place] [address] [place] Methemoglobin (Bld) [Mass fraction] 0.4 % Normal 0.0-1.5 [facility] Comment on above: Order Comment: Speci men Type: ARTERIAL BLOOD SPECIMENOrdering Facility: [facility] Address: [address] [place] [address] Performed By: #### A LLBG ####[facility] LABCLIA [id number] [place] [address] [place] O2 THERAPY Ventilator Normal [facility] Comment on above: Order Comment: Speci men Type: ARTERIAL BLOOD SPECIMENOrdering Facility: [facility] Address: [address] [place] [address] Performed By: #### A LLBG ####[facility] LABCLIA [id number] [place] [address] [place] Oxygen (Bld) [Partial pressure] 99 mm Hg High 85-95 [facility] Comment on above: Order Comment: Speci men Type: ARTERIAL BLOOD SPECIMENOrdering Facility: [facility] Address: [address] [place] [address] Performed By: #### A LLBG ####[facility] LABCLIA [id number] [place] [address] [place] Oxyhemoglobin (BldA) [Mass fraction] 96 % Normal 95-98 [facility] Comment on above: Order Comment: Speci men Type: ARTERIAL BLOOD SPECIMENOrdering Facility: [facility] Address: [address] [place] [address] Performed By: #### A LLBG ####[facility] LABCLIA [id number] [place] [address] [place] pH (Bld) 7.34 [pH] Low 7.35-7.45 [facility] Comment on above: Order Comment: Speci men Type: ARTERIAL BLOOD SPECIMENOrdering Facility: [facility] Address: [address] [place] [address] Performed By: #### A LLBG ####[facility] LABCLIA [id number] [place] [address] [place] Potassium [Moles/Vol] 4.3 mmol/L Normal 3.5-5.0 [facility] Comment on above: Order Comment: Speci men Type: ARTERIAL BLOOD SPECIMENOrdering Facility: [facility] Address: [address] [place] [address] Performed By: #### A LLBG ####[facility] LABCLIA [id number] [place] [address] [place] Sodium [Moles/Vol] 137 mmol/L Normal 136-144 [facility] Comment on above: Order Comment: Speci men Type: ARTERIAL BLOOD SPECIMENOrdering Facility: [facility] Address: [address] [place] [address] Performed By: #### A LLBG ####[facility] LABCLIA [id number] [place] [address] [place] Base deficit (BldA) [Moles/Vol] -4 mmol/L Low -2-0 [facility] Comment on above: Order Comment: Speci men Type: ARTERIAL BLOOD SPECIMENOrdering Facility: [facility] Address: [address] [place] [address] Performed By: #### A LLBG ####[facility] LABCLIA [id number] [place] [address] [place] Body temperature 97.7 [degF] Normal [facility] Comment on above: Order Comment: Speci men Type: ARTERIAL BLOOD SPECIMENOrdering Facility: [facility] Address: [address] [place] [address] Performed By: #### A LLBG ####[facility] LABCLIA [id number] [place] [address] [place] Calcium.ionized (Bld) [Mass/Vol] 1.24 mmol/L Normal 1.08-1.30 [facility] Comment on above: Order Comment: Speci men Type: ARTERIAL BLOOD SPECIMENOrdering Facility: [facility] Address: [address] [place] [address] Performed By: #### A LLBG ####[facility] LABCLIA [id number] [place] [address] [place] Calcium.ionized adjusted to pH 7.4 (BldA) [Moles/Vol] 1.22 mmol/L Normal 1.08-1.30 [facility] Comment on above: Order Comment: Speci men Type: ARTERIAL BLOOD SPECIMENOrdering Facility: [facility] Address: [address] [place] [address] Performed By: #### A LLBG ####[facility] LABCLIA [id number] [place] [address] [place] Carboxyhemoglobin (BldA) [Mass fraction] 1.6 % Normal 0.0-2.0 [facility] Comment on above: Order Comment: Speci men Type: ARTERIAL BLOOD SPECIMENOrdering Facility: [facility] Address: [address] [place] [address] Result Comment: Carb oxyhemoglobin Reference Range for Smokers: 2.0-8.0% Performed By: #### A LLBG ####[facility] LABCLIA [id number] [place] [address] [place] CO2 (Bld) [Partial pressure] 37 mm Hg Normal 36-46 [facility] Comment on above: Order Comment: Speci men Type: ARTERIAL BLOOD SPECIMENOrdering Facility: [facility] Address: [address] [place] [address] Performed By: #### A LLBG ####[facility] LABCLIA [id number] [place] [address] [place] CO2 adjusted to patient's actual temperature (Bld) [Partial pressure] 36 mmHg Normal 36-46 [facility] Comment on above: Order Comment: Speci men Type: ARTERIAL BLOOD SPECIMENOrdering Facility: [facility] Address: [address] [place] [address] Performed By: #### A LLBG ####[facility] LABCLIA [id number] [place] [address] [place] FIO2 40 % Normal [facility] Comment on above: Order Comment: Speci men Type: ARTERIAL BLOOD SPECIMENOrdering Facility: [facility] Address: [address] [place] [address] Performed By: #### A LLBG ####[facility] LABCLIA [id number] [place] [address] [place] Glucose [Mass/Vol] 201 mg/dL High 60-105 [facility] Comment on above: Order Comment: Speci men Type: ARTERIAL BLOOD SPECIMENOrdering Facility: [facility] Address: [address] [place] [address] Performed By: #### A LLBG ####[facility] LABCLIA [id number] [place] [address] [place] HCO3 (Bld) [Moles/Vol] 21 mmol/L Low 22-26 [facility] Comment on above: Order Comment: Speci men Type: ARTERIAL BLOOD SPECIMENOrdering Facility: [facility] Address: [address] [place] [address] Performed By: #### A LLBG ####[facility] LABCLIA [id number] [place] [address] [place] Hematocrit (Bld) [Volume fraction] 36.0 % Low 39.0-51.0 [facility] Comment on above: Order Comment: Speci men Type: ARTERIAL BLOOD SPECIMENOrdering Facility: [facility] Address: [address] [place] [address] Performed By: #### A LLBG ####[facility] LABCLIA [id number] [place] [address] [place] Hemoglobin (Bld) [Mass/Vol] 11.7 g/dL Low 13.0-17.0 [facility] Comment on above: Order Comment: Speci men Type: ARTERIAL BLOOD SPECIMENOrdering Facility: [facility] Address: [address] [place] [address] Performed By: #### A LLBG ####[facility] LABCLIA [id number] [place] [address] [place] Lactate [Moles/Vol] 3.0 mmol/L High 0.5-2.2 [facility] Comment on above: Order Comment: Speci men Type: ARTERIAL BLOOD SPECIMENOrdering Facility: [facility] Address: [address] [place] [address] Performed By: #### A LLBG ####[facility] LABCLIA [id number] [place] [address] [place] Methemoglobin (Bld) [Mass fraction] 0.5 % Normal 0.0-1.5 [facility] Comment on above: Order Comment: Speci men Type: ARTERIAL BLOOD SPECIMENOrdering Facility: [facility] Address: [address] [place] [address] Performed By: #### A LLBG ####[facility] LABCLIA [id number] [place] [address] [place] O2 THERAPY Ventilator Normal [facility] Comment on above: Order Comment: Speci men Type: ARTERIAL BLOOD SPECIMENOrdering Facility: [facility] Address: [address] [place] [address] Performed By: #### A LLBG ####[facility] LABCLIA [id number] [place] [address] [place] Oxygen (Bld) [Partial pressure] 114 mm Hg High 85-95 [facility] Comment on above: Order Comment: Speci men Type: ARTERIAL BLOOD SPECIMENOrdering Facility: [facility] Address: [address] [place] [address] Performed By: #### A LLBG ####[facility] LABCLIA [id number] [place] [address] [place] Oxygen adjusted to patient's actual temperature (Bld) [Partial pressure] 112 mmHg High 85-95 [facility] Comment on above: Order Comment: Speci men Type: ARTERIAL BLOOD SPECIMENOrdering Facility: [facility] Address: [address] [place] [address] Performed By: #### A LLBG ####[facility] LABCLIA [id number] [place] [address] [place] Oxyhemoglobin (BldA) [Mass fraction] 97 % Normal 95-98 [facility] Comment on above: Order Comment: Speci men Type: ARTERIAL BLOOD SPECIMENOrdering Facility: [facility] Address: [address] [place] [address] Performed By: #### A LLBG ####[facility] LABCLIA [id number] [place] [address] [place] pH (Bld) 7.37 [pH] Normal 7.35-7.45 [facility] Comment on above: Order Comment: Speci men Type: ARTERIAL BLOOD SPECIMENOrdering Facility: [facility] Address: [address] [place] [address] Performed By: #### A LLBG ####[facility] LABCLIA [id number] [place] [address] [place] pH adjusted to patient's actual temperature (Bld) 7.38 Normal 7.35-7.45 [facility] Comment on above: Order Comment: Speci men Type: ARTERIAL BLOOD SPECIMENOrdering Facility: [facility] Address: [address] [place] [address] Performed By: #### A LLBG ####[facility] LABCLIA [id number] [place] [address] [place] PO2 / FIO2 RATIO 285 mmHg Low >300 [facility] Comment on above: Order Comment: Speci men Type: ARTERIAL BLOOD SPECIMENOrdering Facility: [facility] Address: [address], [place] [address] Performed By: #### A LLBG ####[facility] LABCLIA [id number] [place] [address] [place] Potassium [Moles/Vol] 4.1 mmol/L Normal 3.5-5.0 [facility] Comment on above: Order Comment: Speci men Type: ARTERIAL BLOOD SPECIMENOrdering Facility: [facility] Address: [address] [place] [address] Performed By: #### A LLBG ####[facility] LABCLIA [id number] [place] [address] [place] Sodium [Moles/Vol] 137 mmol/L Normal 136-144 [facility] Comment on above: Order Comment: Speci men Type: ARTERIAL BLOOD SPECIMENOrdering Facility: [facility] Address: [address] [place] [address] Performed By: #### A LLBG ####[facility] LABCLIA [id number] [place] [address] [place] Base deficit (BldA) [Moles/Vol] -5 mmol/L Low -2-0 [facility] Comment on above: Order Comment: Speci men Type: ARTERIAL BLOOD SPECIMENOrdering Facility: [facility] Address: [address] [place] [address] Performed By: #### A LLBG ####[facility] LABIA [id number] [place] [address] [place] Body temperature 98.42 [degF] Normal [facility] Comment on above: Order Comment: Speci men Type: ARTERIAL BLOOD SPECIMENOrdering Facility: [facility] Address: [address] [place] [address] Performed By: #### A LLBG ####[facility] LABCLIA [id number] [place] [address] [place] Calcium.ionized (Bld) [Mass/Vol] 1.24 mmol/L Normal 1.08-1.30 [facility] Comment on above: Order Comment: Speci men Type: ARTERIAL BLOOD SPECIMENOrdering Facility: [facility] Address: [address] [place] [address] Performed By: #### A LLBG ####[facility] LABCLIA [id number] [place] [address] [place] Calcium.ionized adjusted to pH 7.4 (BldA) [Moles/Vol] 1.17 mmol/L Normal 1.08-1.30 [facility] Comment on above: Order Comment: Speci men Type: ARTERIAL BLOOD SPECIMENOrdering Facility: [facility] Address: [address] [place] [address] Performed By: #### A LLBG ####[facility] LABCLIA [id number] [place] [address] [place] Carboxyhemoglobin (BldA) [Mass fraction] 1.5 % Normal 0.0-2.0 [facility] Comment on above: Order Comment: Speci men Type: ARTERIAL BLOOD SPECIMENOrdering Facility: [facility] Address: [address] [place] [address] Result Comment: Carb oxyhemoglobin Reference Range for Smokers: 2.0-8.0% Performed By: #### A LLBG ####[facility] LABIA [id number] [place] [address] [place] CO2 (Bld) [Partial pressure] 46 mm Hg Normal 36-46 [facility] Comment on above: Order Comment: Speci men Type: ARTERIAL BLOOD SPECIMENOrdering Facility: [facility] Address: [address] [place] [address] Performed By: #### A LLBG ####[facility] LABCLIA [id number] [place] [address] [place] CO2 adjusted to patient's actual temperature (Bld) [Partial pressure] 45 mmHg Normal 36-46 [facility] Comment on above: Order Comment: Speci men Type: ARTERIAL BLOOD SPECIMENOrdering Facility: [facility] Address: [address] [place] [address] Performed By: #### A LLBG ####[facility] LABCLIA [id number] [place] [address] [place] Glucose [Mass/Vol] 219 mg/dL High 60-105 [facility] Comment on above: Order Comment: Speci men Type: ARTERIAL BLOOD SPECIMENOrdering Facility: [facility] Address: [address] [place] [address] Performed By: #### A LLBG ####[facility] LABCLIA [id number] [place] [address] [place] HCO3 (Bld) [Moles/Vol] 21 mmol/L Low 22-26 [facility] Comment on above: Order Comment: Speci men Type: ARTERIAL BLOOD SPECIMENOrdering Facility: [facility] Address: [address] [place] [address] Performed By: #### A LLBG ####[facility] LABCLIA [id number] [place] [address] [place] Hematocrit (Bld) [Volume fraction] 37.3 % Low 39.0-51.0 [facility] Comment on above: Order Comment: Speci men Type: ARTERIAL BLOOD SPECIMENOrdering Facility: [facility] Address: [address] [place] [address] Performed By: #### A LLBG ####[facility] LABCLIA [id number] [place] [address] [place] Hemoglobin (Bld) [Mass/Vol] 12.1 g/dL Low 13.0-17.0 [facility] Comment on above: Order Comment: Speci men Type: ARTERIAL BLOOD SPECIMENOrdering Facility: [facility] Address: [address] [place] [address] Performed By: #### A LLBG ####[facility] LABCLIA [id number] [place] [id number] [place] Lactate [Moles/Vol] 2.5 mmol/L High 0.5-2.2 [facility] Comment on above: Order Comment: Speci men Type: ARTERIAL BLOOD SPECIMENOrdering Facility: [facility] Address: [address] [place], [place] [address] Performed By: #### A LLBG ####[facility] LABCLIA [id number] [place] [address] [place] Methemoglobin (Bld) [Mass fraction] 0.7 % Normal 0.0-1.5 [facility] Comment on above: Order Comment: Speci men Type: ARTERIAL BLOOD SPECIMENOrdering Facility: [facility] Address: [address] [place] [address] Performed By: #### A LLBG ####[facility] LABCLIA [id number] [place] [address] [place] O2 THERAPY Ventilator Normal [facility] Comment on above: Order Comment: Speci men Type: ARTERIAL BLOOD SPECIMENOrdering Facility: [facility] Address: [address] [place] [address] Performed By: #### A LLBG ####[facility] LABCLIA [id number] [place] [id number] [place] Oxygen (Bld) [Partial pressure] 200 mm Hg High 85-95 [facility] Comment on above: Order Comment: Speci men Type: ARTERIAL BLOOD SPECIMENOrdering Facility: [facility] Address: [address] [place] [address] Performed By: #### A LLBG ####[facility] LABCLIA [id number] [place] [id number] [place] Oxygen adjusted to patient's actual temperature (Bld) [Partial pressure] 200 mmHg High 85-95 [facility] Comment on above: Order Comment: Speci men Type: ARTERIAL BLOOD SPECIMENOrdering Facility: [facility] Address: [address] [place] [address] Performed By: #### A LLBG ####[facility] LABCLIA [id number] [place] [address] [place] Oxyhemoglobin (BldA) [Mass fraction] 98 % Normal 95-98 [facility] Comment on above: Order Comment: Speci men Type: ARTERIAL BLOOD SPECIMENOrdering Facility: [facility] Address: [address] [place] [address] Performed By: #### A LLBG ####[facility] LABIA [id number] [place] [address] [place] pH (Bld) 7.29 [pH] Low 7.35-7.45 [facility] Comment on above: Order Comment: Speci men Type: ARTERIAL BLOOD SPECIMENOrdering Facility: [facility] Address: [address] [place] [address] Performed By: #### A LLBG ####[facility] LABIA [id number] [place] [address] [place] pH adjusted to patient's actual temperature (Bld) 7.30 Low 7.35-7.45 [facility] Comment on above: Order Comment: Speci men Type: ARTERIAL BLOOD SPECIMENOrdering Facility: [facility] Address: [address] [place] [address] Performed By: #### A LLBG ####[facility] LABIA [id number] [place] [address] [place] Potassium [Moles/Vol] 3.8 mmol/L Normal 3.5-5.0 [facility] Comment on above: Order Comment: Speci men Type: ARTERIAL BLOOD SPECIMENOrdering Facility: [facility] Address: [address] [place] [address] Performed By: #### A LLBG ####[facility] LABIA [id number] [place] [address] [place] Sodium [Moles/Vol] 137 mmol/L Normal 136-144 [facility] Comment on above: Order Comment: Speci men Type: ARTERIAL BLOOD SPECIMENOrdering Facility: [facility] Address: [address] [place] [address] Performed By: #### A LLBG ####[facility] LABIA [id number] [place] [address] [place] ARTERIAL BLOOD GASES WITH IO NIZED MAGNESIUMon 03-17-2024 Base deficit (BldA) [Moles/Vol] -4 mmol/L Low -2-0 [facility] Comment on above: Order Comment: Speci men Type: ARTERIAL BLOOD SPECIMENOrdering Facility: [facility] Address: [address] [place] [address] Performed By: #### A LLMG ####[facility] LABIA [id number] [place] [address] [place] Calcium.ionized (Bld) [Mass/Vol] 1.25 mmol/L Normal 1.08-1.30 [facility] Comment on above: Order Comment: Speci men Type: ARTERIAL BLOOD SPECIMENOrdering Facility: [facility] Address: [address] [place] [address] Performed By: #### A LLMG ####[facility] LABIA [id number] [place] [address] [place] Calcium.ionized adjusted to pH 7.4 (BldA) [Moles/Vol] 1.22 mmol/L Normal 1.08-1.30 [facility] Comment on above: Order Comment: Speci men Type: ARTERIAL BLOOD SPECIMENOrdering Facility: [facility] Address: [address] [place] [address] Performed By: #### A LLMG ####[facility] LABIA [id number] [place] [address] [place] Carboxyhemoglobin (BldA) [Mass fraction] 1.8 % Normal 0.0-2.0 [facility] Comment on above: Order Comment: Speci men Type: ARTERIAL BLOOD SPECIMENOrdering Facility: [facility] Address: [address] [place] [address] Result Comment: Carb oxyhemoglobin Reference Range for Smokers: 2.0-8.0% Performed By: #### A LLMG ####[facility] LABCLIA [id number] [place] [address] [place] CO2 (Bld) [Partial pressure] 39 mm Hg Normal 36-46 [facility] Comment on above: Order Comment: Speci men Type: ARTERIAL BLOOD SPECIMENOrdering Facility: [facility] Address: [address] [place] [address] Performed By: #### A LLMG ####[facility] LABCLIA [id number] [place] [address] [place] CO2 adjusted to patient's actual temperature (Bld) [Partial pressure] 39 mmHg Normal 36-46 [facility] Comment on above: Order Comment: Speci men Type: ARTERIAL BLOOD SPECIMENOrdering Facility: [facility] Address: [address] [place] [address] Performed By: #### A LLMG ####[facility] LABCLIA [id number] [place] [address] [place] Glucose [Mass/Vol] 201 mg/dL High 60-105 [facility] Comment on above: Order Comment: Speci men Type: ARTERIAL BLOOD SPECIMENOrdering Facility: [facility] Address: [address] [place] [address] Performed By: #### A LLMG ####[facility] LABIA [id number] [place] [address] [place] HCO3 (Bld) [Moles/Vol] 21 mmol/L Low 22-26 [facility] Comment on above: Order Comment: Speci men Type: ARTERIAL BLOOD SPECIMENOrdering Facility: [facility] Address: [address] [place] [address] Performed By: #### A LLMG ####[facility] LABCLIA [id number] [place] [address] [place] Hematocrit (Bld) [Volume fraction] 42.3 % Normal 39.0-51.0 [facility] Comment on above: Order Comment: Speci men Type: ARTERIAL BLOOD SPECIMENOrdering Facility: [facility] Address: [address] [place] [address] Performed By: #### A LLMG ####[facility] LABCLIA [id number] [place] [address] [place] Hemoglobin (Bld) [Mass/Vol] 13.8 g/dL Normal 13.0-17.0 [facility] Comment on above: Order Comment: Speci men Type: ARTERIAL BLOOD SPECIMENOrdering Facility: [facility] Address: [address] [place] [address] Performed By: #### A LLMG ####[facility] LABCLIA [id number] [place] [address] [place] Lactate [Moles/Vol] 1.9 mmol/L Normal 0.5-2.2 [facility] Comment on above: Order Comment: Speci men Type: ARTERIAL BLOOD SPECIMENOrdering Facility: [facility] Address: [address] [place] [address] Performed By: #### A LLMG ####[facility] LABCLIA [id number] [place] [address] [place] Magnesium [Moles/Vol] 0.38 mmol/L Low 0.45-0.60 [facility] Comment on above: Order Comment: Speci men Type: ARTERIAL BLOOD SPECIMENOrdering Facility: [facility] Address: [address] [place] [address] Performed By: #### A LLMG ####[facility] LABCLIA [id number] [place] [address] [place] Methemoglobin (Bld) [Mass fraction] 1.1 % Normal 0.0-1.5 [facility] Comment on above: Order Comment: Speci men Type: ARTERIAL BLOOD SPECIMENOrdering Facility: [facility] Address: [address] [place] [address] Performed By: #### A LLMG ####[facility] LABCLIA [id number] [place] [address] [place] Oxygen (Bld) [Partial pressure] 132 mm Hg High 85-95 [facility] Comment on above: Order Comment: Speci men Type: ARTERIAL BLOOD SPECIMENOrdering Facility: [facility] Address: [address] [place] [address] Performed By: #### A LLMG ####[facility] LABCLIA [id number] [place] [address] [place] Oxygen adjusted to patient's actual temperature (Bld) [Partial pressure] 132 mmHg High 85-95 [facility] Comment on above: Order Comment: Speci men Type: ARTERIAL BLOOD SPECIMENOrdering Facility: [facility] Address: [address] [place] [address] Performed By: #### A LLMG ####[facility] LABCLIA [id number] [place] [address] [place] Oxyhemoglobin (BldA) [Mass fraction] 96 % Normal 95-98 [facility] Comment on above: Order Comment: Speci men Type: ARTERIAL BLOOD SPECIMENOrdering Facility: [facility] Address: [address] [place], [place] [address] Performed By: #### A LLMG ####[facility] LABCLIA [id number] [place] [address] [place] pH (Bld) 7.35 [pH] Normal 7.35-7.45 [facility] Comment on above: Order Comment: Speci men Type: ARTERIAL BLOOD SPECIMENOrdering Facility: [facility] Address: [address] [place] [address] Performed By: #### A LLMG ####[facility] LABCLIA [id number] [place] [address] [place] pH adjusted to patient's actual temperature (Bld) 7.35 Normal 7.35-7.45 [facility] Comment on above: Order Comment: Speci men Type: ARTERIAL BLOOD SPECIMENOrdering Facility: [facility] Address: [address] [place] [address] Performed By: #### A LLMG ####[facility] LABCLIA [id number] [place] [address] [place] Potassium [Moles/Vol] 4.1 mmol/L Normal 3.5-5.0 [facility] Comment on above: Order Comment: Speci men Type: ARTERIAL BLOOD SPECIMENOrdering Facility: [facility] Address: [address] [place] [address] Performed By: #### A LLMG ####[facility] LABCLIA [id number] [place] [address] [place] Sodium [Moles/Vol] 136 mmol/L Normal 136-144 [facility] Comment on above: Order Comment: Speci men Type: ARTERIAL BLOOD SPECIMENOrdering Facility: [facility] Address: [address] [place] [address] Performed By: #### A LLMG ####[facility] LABCLIA [id number] [place] [address] [place] Base deficit (BldA) [Moles/Vol] -1 mmol/L Normal -2-0 [facility] Comment on above: Order Comment: Speci men Type: ARTERIAL BLOOD SPECIMENOrdering Facility: [facility] Address: [address] [place] [address] Performed By: #### A LLMG ####[facility] LABCLIA [id number] [place] [address] [place] Calcium.ionized (Bld) [Mass/Vol] 1.32 mmol/L High 1.08-1.30 [facility] Comment on above: Order Comment: Speci men Type: ARTERIAL BLOOD SPECIMENOrdering Facility: [facility] Address: [address] [place] [address] Performed By: #### A LLMG ####[facility] LABCLIA [id number] [address] [place] Calcium.ionized adjusted to pH 7.4 (BldA) [Moles/Vol] 1.30 mmol/L Normal 1.08-1.30 [facility] Comment on above: Order Comment: Speci men Type: ARTERIAL BLOOD SPECIMENOrdering Facility: [facility] Address: [address] [place] [address] Performed By: #### A LLMG ####[facility] LABCLIA [id number] [address] [place] Carboxyhemoglobin (BldA) [Mass fraction] 0.9 % Normal 0.0-2.0 [facility] Comment on above: Order Comment: Speci men Type: ARTERIAL BLOOD SPECIMENOrdering Facility: [facility] Address: [address] [place] [address] Result Comment: Carb oxyhemoglobin Reference Range for Smokers: 2.0-8.0% Performed By: #### A LLMG ####[facility] LABCLIA [id number] [place] [address] [place] CO2 (Bld) [Partial pressure] 43 mm Hg Normal 36-46 [facility] Comment on above: Order Comment: Speci men Type: ARTERIAL BLOOD SPECIMENOrdering Facility: [facility] Address: [address] [place] [address] Performed By: #### A LLMG ####[facility] LABCLIA [id number] [place] [address] [place] CO2 adjusted to patient's actual temperature (Bld) [Partial pressure] 43 mmHg Normal 36-46 [facility] Comment on above: Order Comment: Speci men Type: ARTERIAL BLOOD SPECIMENOrdering Facility: [facility] Address: [address] [place] [address] Performed By: #### A LLMG ####[facility] LABCLIA [id number] [place] [address] [place] Glucose [Mass/Vol] 131 mg/dL High 60-105 [facility] Comment on above: Order Comment: Speci men Type: ARTERIAL BLOOD SPECIMENOrdering Facility: [facility] Address: [address] [place] [address] Performed By: #### A LLMG ####[facility] LABCLIA [id number] [place] [address] [place] HCO3 (Bld) [Moles/Vol] 24 mmol/L Normal 22-26 [facility] Comment on above: Order Comment: Speci men Type: ARTERIAL BLOOD SPECIMENOrdering Facility: [facility] Address: [address] [place] [address] Performed By: #### A LLMG ####[facility] LABCLIA [id number] [place] [address] [place] Hematocrit (Bld) [Volume fraction] 43.5 % Normal 39.0-51.0 [facility] Comment on above: Order Comment: Speci men Type: ARTERIAL BLOOD SPECIMENOrdering Facility: [facility] Address: [address] [place] [address] Performed By: #### A LLMG ####[facility] LABCLIA [id number] [place] [address] [place] Hemoglobin (Bld) [Mass/Vol] 14.2 g/dL Normal 13.0-17.0 [facility] Comment on above: Order Comment: Speci men Type: ARTERIAL BLOOD SPECIMENOrdering Facility: [facility] Address: [address] [place] [address] Performed By: #### A LLMG ####[facility] LABCLIA [id number] [place] [address] [place] Lactate [Moles/Vol] 1.6 mmol/L Normal 0.5-2.2 [facility] Comment on above: Order Comment: Speci men Type: ARTERIAL BLOOD SPECIMENOrdering Facility: [facility] Address: [address] [place] [address] Performed By: #### A LLMG ####[facility] LABCLIA [id number] [place] [address] [place] Magnesium [Moles/Vol] 0.53 mmol/L Normal 0.45-0.60 [facility] Comment on above: Order Comment: Speci men Type: ARTERIAL BLOOD SPECIMENOrdering Facility: [facility] Address: [address] [place] [address] Performed By: #### A LLMG ####[facility] LABIA [id number] [place] [address] [place] Methemoglobin (Bld) [Mass fraction] 0.8 % Normal 0.0-1.5 [facility] Comment on above: Order Comment: Speci men Type: ARTERIAL BLOOD SPECIMENOrdering Facility: [facility] Address: [address] [place] [address] Performed By: #### A LLMG ####[facility] LABCLIA [id number] [place] [address] [place] Oxygen (Bld) [Partial pressure] 120 mm Hg High 85-95 [facility] Comment on above: Order Comment: Speci men Type: ARTERIAL BLOOD SPECIMENOrdering Facility: [facility] Address: [address] [place] [address] Performed By: #### A LLMG ####[facility] LABIA [id number] [place] [address] [place] Oxygen adjusted to patient's actual temperature (Bld) [Partial pressure] 120 mmHg High 85-95 [facility] Comment on above: Order Comment: Speci men Type: ARTERIAL BLOOD SPECIMENOrdering Facility: [facility] Address: [address] [place] [address] Performed By: #### A LLMG ####[facility] LABCLIA [id number] [place] [address] [place] Oxyhemoglobin (BldA) [Mass fraction] 96 % Normal 95-98 [facility] Comment on above: Order Comment: Speci men Type: ARTERIAL BLOOD SPECIMENOrdering Facility: [facility] Address: [address] [place] [address] Performed By: #### A LLMG ####[facility] LABCLIA [id number] [place] [address] [place] pH (Bld) 7.36 [pH] Normal 7.35-7.45 [facility] Comment on above: Order Comment: Speci men Type: ARTERIAL BLOOD SPECIMENOrdering Facility: [facility] Address: [address] [place] [address] Performed By: #### A LLMG ####[facility] LABCLIA [id number] [place] [address] [place] pH adjusted to patient's actual temperature (Bld) 7.36 Normal 7.35-7.45 [facility] Comment on above: Order Comment: Speci men Type: ARTERIAL BLOOD SPECIMENOrdering Facility: [facility] Address: [address] [place] [address] Performed By: #### A LLMG ####[facility] LABIA [id number] [place] [address] [place] Potassium [Moles/Vol] 3.6 mmol/L Normal 3.5-5.0 [facility] Comment on above: Order Comment: Speci men Type: ARTERIAL BLOOD SPECIMENOrdering Facility: [facility] Address: [address] [place] [address] Performed By: #### A LLMG ####[facility] LABCLIA [id number] [place] [address] [place] Sodium [Moles/Vol] 137 mmol/L Normal 136-144 [facility] Comment on above: Order Comment: Speci men Type: ARTERIAL BLOOD SPECIMENOrdering Facility: [facility] Address: [address] [place] [address] Performed By: #### A LLMG ####[facility] LABCLIA [id number] [place] [address] [place] BRIEF OP NOTon 03-17-2024 BRIEF OP NOT Normal [facility] CBC panel Auto (Bld)on 03-17 Erythrocyte distribution width (RBC) [Ratio] 14.2 % Normal 11.5-15.0 [facility] Comment on above: Order Comment: Speci men Type: BLOOD SPECIMENOrdering Facility: [facility] Address: [address] [place] [address] Performed By: #### 5 8410-2 ####[facility] LABCLIA [id number] [place] [address] [place] Hematocrit (Bld) [Volume fraction] 36.1 % Low 39.0-51.0 [facility] Comment on above: Order Comment: Speci men Type: BLOOD SPECIMENOrdering Facility: [facility] Address: [address] [place] [address] Performed By: #### 5 8410-2 ####[facility] LABCLIA [id number] [place] [address] [place] Hemoglobin (Bld) [Mass/Vol] 12.2 g/dL Low 13.0-17.0 [facility] Comment on above: Order Comment: Speci men Type: BLOOD SPECIMENOrdering Facility: [facility] Address: [address] [place] [address] Performed By: #### 5 8410-2 ####[facility] LABCLIA [id number] [place] [address] [place] MCH (RBC) [Entitic mass] 29.5 pg Normal 26.0-34.0 [facility] Comment on above: Order Comment: Speci men Type: BLOOD SPECIMENOrdering Facility: [facility] Address: [address] [place] [address] Performed By: #### 5 8410-2 ####[facility] LABIA [id number] [place] [address] [place] MCHC (RBC) [Mass/Vol] 33.8 g/dL Normal 30.5-36.0 [facility] Comment on above: Order Comment: Speci men Type: BLOOD SPECIMENOrdering Facility: [facility] Address: [address] [place] [address] Performed By: #### 5 8410-2 ####[facility] [id number] [place] [address] [place] MCV (RBC) [Entitic vol] 87.4 fL Normal 80.0-100.0 [facility] Comment on above: Order Comment: Speci men Type: BLOOD SPECIMENOrdering Facility: [facility] Address: [address] [place] [address] Performed By: #### 5 8410-2 ####[facility] [id number] [place] [address] [place] Nucleated RBC (Bld) [#/Vol] 10*3/uL Normal <0.01 [facility] Comment on above: Order Comment: Speci men Type: BLOOD SPECIMENOrdering Facility: [facility] Address: [address] [place] [address] Performed By: #### 5 8410-2 ####[facility] [id number] [place] [address] [place] Platelet mean volume (Bld) [Entitic vol] 8.8 fL Low 9.0-12.7 [facility] Comment on above: Order Comment: Speci men Type: BLOOD SPECIMENOrdering Facility: [facility] Address: [address] [place] [address] Performed By: #### 5 8410-2 ####[facility] LABCLIA [id number] [place] [address] [place] Platelets (Bld) [#/Vol] 193 10*3/uL Normal 150-400 [facility] Comment on above: Order Comment: Speci men Type: BLOOD SPECIMENOrdering Facility: [facility] Address: [address] [place] [address] Performed By: #### 5 8410-2 ####[facility] LABCLIA [id number] [place] [address] [place] RBC (Bld) [#/Vol] 4.13 10*6/uL Low 4.20-6.00 [facility] Comment on above: Order Comment: Speci men Type: BLOOD SPECIMENOrdering Facility: [facility] Address: [address] [place] [address] Performed By: #### 5 8410-2 ####[facility] LABCLIA [id number] [place] [address] [place] WBC (Bld) [#/Vol] 16.54 10*3/uL High 3.70-11.00 [facility] Comment on above: Order Comment: Speci men Type: BLOOD SPECIMENOrdering Facility: [facility] Address: [address] [place] [address] Performed By: #### 5 8410-2 ####[facility] LABCLIA [id number] [place] [address] [place] Comprehensive metabolic 2000 panelon 03-17-2024 Albumin [Mass/Vol] 4.0 g/dL Normal 3.9-4.9 [facility] Comment on above: Order Comment: Speci men Type: BLOOD SPECIMENOrdering Facility: [facility] Address: [address] [place], [place] [address] Performed By: #### 2 4323-8, 76902-7, 2776-11 ####[facility] LABCLIA [id number] [place] [address] [place] ALP [Catalytic activity/Vol] 119 U/L High 38-113 [facility] Comment on above: Order Comment: Speci men Type: BLOOD SPECIMENOrdering Facility: [facility] Address: [address] [place] [address] Performed By: #### 2 4323-8, , 2776-11 ####[facility] LABCLIA [id number] [place] [address] [place] ALT [Catalytic activity/Vol] 58 U/L High 10-54 [facility] Comment on above: Order Comment: Speci men Type: BLOOD SPECIMENOrdering Facility: [facility] Address: [address] [place] [address] Performed By: #### 2 4323-8, , 2776-11 ####[facility] LABIA [id number] [place] [address] [place] Anion gap [Moles/Vol] 16 mmol/L Normal 9-18 [facility] Comment on above: Order Comment: Speci men Type: BLOOD SPECIMENOrdering Facility: [facility] Address: [address] [place] [address] Performed By: #### 2 4323-8, , 2776-11 ####[facility] LABCLIA [id number] [place] [id number] [place] AST [Catalytic activity/Vol] 65 U/L High 14-40 [facility] Comment on above: Order Comment: Speci men Type: BLOOD SPECIMENOrdering Facility: [facility] Address: [address] [place], [place] [address] Performed By: #### 2 4323-8, , 2776-11 ####[facility] LABCLIA [id number] [address] [address] [place] Bilirubin [Mass/Vol] 1.0 mg/dL Normal 0.2-1.3 [facility] Comment on above: Order Comment: Speci men Type: BLOOD SPECIMENOrdering Facility: [facility] Address: [address] [place], [place] [address] Performed By: #### 2 4323-8, , 2776-11 ####[facility] LABCLIA [id number] [place] [address] [place] Calcium [Mass/Vol] 9.1 mg/dL Normal 8.5-10.2 [facility] Comment on above: Order Comment: Speci men Type: BLOOD SPECIMENOrdering Facility: [facility] Address: [address] [place], [place] [address] Performed By: #### 2 4323-8, , 2776-11 ####[facility] LABCLIA [id number] [place] [id number] [place] Chloride [Moles/Vol] 102 mmol/L Normal 97-105 [facility] Comment on above: Order Comment: Speci men Type: BLOOD SPECIMENOrdering Facility: [facility] Address: [address] [place] [address] Performed By: #### 2 4323-8, , 2776-11 ####[facility] LABCLIA [id number] [address] [address] [place] CO2 [Moles/Vol] 20 mmol/L Low 22-30 [facility] Comment on above: Order Comment: Speci men Type: BLOOD SPECIMENOrdering Facility: [facility] Address: [address] [place] [address] Performed By: #### 2 4323-8, , 2776-11 ####[facility] LABCLIA [id number] [address] [address] [place] Creatinine [Mass/Vol] 2.69 mg/dL High 0.73-1.22 [facility] Comment on above: Order Comment: Ellen hatch Type: BLOOD SPECIMENOrdering Facility: [facility] Address: [address] [place] [address] Performed By: #### 2 4323-8, , 2776-11 ####[facility] LABIA [id number] [place] [address] [place] Creatinine and Glomerular filtration rate.predicted panel (S/P/Bld) 31 mL/min/1.73m??? Low >=60 [facility] Comment on above: Order Comment: Ellen hatch Type: BLOOD SPECIMENOrdering Facility: [facility] Address: [address] [place] [address] Result Comment: Elba mated Glomerular Filtration Rate (eGFR) is calculated using the 2020 CKD-EPI creatinine equation. This equation utilizes serum creatinine, sex, and age as parameters. The creatinine assay has traceable calibration to isotope dilution-mass spectrometry. Refer to KDIGO guidelines for clinical interpretation. In patients with unstable renal function, e.g. those with acute kidney injury, the eGFR may not accurately reflect actual GFR. Performed By: #### 2 4323-8, , 2776-11 ####[facility] LABIA [id number] [place] [id number] [place] Glucose [Mass/Vol] 223 mg/dL High 74-99 [facility] Comment on above: Order Comment: Ellen hatch Type: BLOOD SPECIMENOrdering Facility: [facility] Address: [address] [place] [address] Result Comment: The [place] Diabetes Association (ADA) provides guidance for cutoff values for fasting glucose and random glucose. The ADA defines fasting as no caloric intake for at least 8 hours. Fasting plasma glucose results between 100 to 125 mg/dL indicate increased risk for diabetes (prediabetes).Fasting plasma glucose results greater than or equal to 126 mg/dL meet the criteria for diagnosis of diabetes. In the absence of unequivocal hyperglycemia, results should be confirmed by repeat testing. In a patient with classic symptoms of hyperglycemia or hyperglycemic crisis, random plasma glucose results greater than or equal to 200 mg/dL meet the criteria for diagnosis of diabetes.Reference: Standards of Medical Care in Diabetes 2016, [place] [employer]. Diabetes Care. 2016.39(Suppl 1). Performed By: #### 2 4323-8, , 2776-11 ####[facility] LABCLIA [id number] [place] [address] [place] Potassium [Moles/Vol] 4.0 mmol/L Normal 3.7-5.1 [facility] Comment on above: Order Comment: Speci men Type: BLOOD SPECIMENOrdering Facility: [facility] Address: [address] [place] [address] Performed By: #### 2 432-8, , 2776-11 ####[facility] LABCLIA [id number] [place] [address] [place] Protein [Mass/Vol] 6.0 g/dL Low 6.3-8.0 [facility] Comment on above: Order Comment: Speci men Type: BLOOD SPECIMENOrdering Facility: [facility] Address: [address] [place] [address] Performed By: #### 2 4323-8, , 2776-11 ####[facility] LABCLIA [id number] [place] [address] [place] Sodium [Moles/Vol] 138 mmol/L Normal 136-144 [facility] Comment on above: Order Comment: Speci men Type: BLOOD SPECIMENOrdering Facility: [facility] Address: [address] [place] [address] Performed By: #### 2 4323-8, , 2776-11 ####[facility] LABCLIA [id number] [place] [address] [place] Urea nitrogen [Mass/Vol] 34 mg/dL High 9-24 [facility] Comment on above: Order Comment: Erini men Type: BLOOD SPECIMENOrdering Facility: [facility] Address: [address] [place] [address] Performed By: #### 2 4323-8, 67998-5, 2777-1 ####[facility] LABCLIA [id number] [place] [address] [place] Fibrinogen PPP-mCncon 2023 Fibrinogen Coag (PPP) [Mass/Vol] 274 mg/dL Normal 200-400 [facility] Comment on above: Order Comment: Erini men Type: BLOOD SPECIMENOrdering Facility: [facility] Address: [address] [place] [address] Performed By: #### 3 4528-0, 3255-7 ####[facility] LABCLIA [id number] [place] [address] [place] HIGH SENSITIVITY TROPONIN To n 03-17-2024 Troponin T.cardiac High sensitivity method [Mass/Vol] 14 ng/L High <12 [facility] Comment on above: Order Comment: Ellen hatch Type: BLOOD SPECIMENOrdering Facility: [facility] Address: [address] [place] [address] Result Comment: When assessing risk for acute coronary syndromes: In patients undergoing blood draw greater than or equal to 2 hours from symptom onset, with history of very low to moderate risk and non-ischemic ECG, an initial hs-Troponin T less than 12 ng/L AND a 1 hour delta hs-Troponin T less than 3 ng/L should be considered very low risk for 30 day MACE. Performed By: #### H STNT ####[facility] LABCLIA [id number] [place] [address] [place] Magnesium SerPl-mCncon 03-17 Magnesium [Mass/Vol] 1.9 mg/dL Normal 1.7-2.3 [facility] Comment on above: Order Comment: Ellen hatch Type: BLOOD SPECIMENOrdering Facility: [facility] Address: [address] [place] [address] [place] [address] Performed By: #### 2 4323-8, 77586-2, 2777-1 ####[facility] LABIA [id number] [place] [address] [place] NURSING PROGon 03-17-2024 NURSING PROG Normal [facility] NURSING PROG Normal [facility] OPERATIVE NOon 03-17-2024 OPERATIVE NO Normal [facility] PT panel Coag (PPP)on 2023 INR Coag (PPP) [Relative time] 1.1 {INR} Normal 0.9-1.3 [facility] Comment on above: Order Comment: Ellen hatch Type: BLOOD SPECIMENOrdering Facility: [facility] Address: [address] [place], [place] [address] [address] Result Comment: Linda min K Antagonist (VKA) Therapeutic Range: INR 2 to 3 (Target INR of 2.5)Note: For patients treated with VKA drugs, such as warfarin, the [place] [employer] 2012 Guideline recommends a therapeutic INR range of 2 to 3 (target INR of 2.5). This recommendation includes high-risk patients with antiphospholipid syndrome with previous arterial or venous thromboembolism, current-generation mechanical or bioprosthetic aortic heart valve replacement.Note: Patients with mechanical aortic valve replacement and additional risk factors for thromboembolic events (atrial fibrillation, previous thromboembolism, LV dysfunction, hypercoagulable conditions) or an older generation mechanical AVR (i.e., ball in-Cage) or any mechanical MVR should have a INR therapeutic range of 2.5 to 3.5 (target INR of 3).Nusrat GH, et al. Chest 2012, 141:7S-47SNishimura RA, et al. JAC 2017, 70: 252-289 Performed By: #### 3 4528-0, 3255-7 ####[facility] LABIA [id number] [place] [address] [place] PT Coag (PPP) [Time] 11.3 s Normal 9.7-13.0 [facility] Comment on above: Order Comment: Speci men Type: BLOOD SPECIMENOrdering Facility: [facility] Address: [address] [place] [address] Performed By: #### 3 4528-0, 3255-7 ####[facility] LABCLIA [id number] [place] [address] [place] Phosphate SerPl-mCncon 03-17 Phosphate [Mass/Vol] 4.0 mg/dL Normal 2.7-4.8 [facility] Comment on above: Order Comment: Speci men Type: BLOOD SPECIMENOrdering Facility: [facility] Address: [address] [place] [address] Performed By: #### 2 4323-8, 22582-6, 2777-1 ####[facility] LABCLIA [id number] [place] [address] [place] STAPHYLOCOCCUS AUREUS AND MR SA SCREEN, PCR, NASALon 03-17-2024 S. aureus and MRSA panel COLTEN+probe (Nose) Abnormal Negative [facility] Comment on above: Order Comment: Speci men Type: SWABOrdering Facility: [facility] Address: [address] [place] [address] Result Comment: Posi tive for Staphylococcus aureus by PCR.Negative for MRSA by PCR Performed By: #### S APCR ####[facility] LABCLIA [id number] [place] [address] [place] SURGICAL PATHOLOGYon 024 BLOCK FOR ADDITIONAL BIOMARKERS/MOLECULAR STUDIES None suitable Normal [facility] Comment on above: Order Comment: Speci men Type: TISSUE SPECIMENOrdering Facility: [facility] Address: [address] [place] [address] Performed By: #### S ####[facility] LABCLIA [id number] [place] [address] [place] CASE REPORT Normal [facility] Comment on above: Order Comment: Speci men Type: TISSUE SPECIMENOrdering Facility: [facility] Address: [address] [place] [address] Result Comment: Surg ical Pathology Report Case: [id number] Provider: Antonio Brown MD Collected: 03/17/2024 12:02 PMOrdering Location: Admitting Received: 03/17/2024 01:17 PMPathologist: Yunior Aj MDIntraop: Erum Claudio MDSpecimens: A) - Soft Tissue, Mass, Resection, right pre-caval mass B) - Spermatic Cord, Right, right spermatic cord C) - Soft Tissue, Mass, Resection, right pre-caval mass D) - Lymph Node, right pre caval lymph nodes Performed By: #### S ####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 [id number] [address] [place] FINAL DIAGNOSIS Normal [facility] Comment on above: Order Comment: Speci men Type: TISSUE SPECIMENOrdering Facility: [facility] Address: [address] [place] [address] Result Comment: A. L ymph node mass, right precaval, excisional biopsy:- Necrotic tissue, consistent with treatment effect on tumor.- No viable neoplasm identified.B. Soft tissue, right spermatic cord, resection:- Benign fibrovascular and adipose tissue.C. Lymph node mass, right precaval, resection:- Necrotic mass with xanthomatous reaction and calcification, 4.6 cm gross greatest dimension, consistent with treatment effect on tumor.- No viable neoplasm identified.D. Lymph nodes, right precaval, regional resection:- Fibrosis or necrosis involving 4 lymph nodes, consistent with treatment effect on tumor.- No viable neoplasm identified.- 3 additional lymph nodes with no pathologic change (total 0/7). Performed By: #### S ####[facility] LABCLIA [id number] [address] OF [facility] FINAL PERFORMING LAB Normal [facility] Comment on above: Order Comment: Speci men Type: TISSUE SPECIMENOrdering Facility: [facility] Address: [address] [place] [address] Result Comment: Diag nostic interpretation performed at [facility], [address] [place] [address] CLIA# [id number] Director: Marco A Ang M.D. Performed By: #### S ####[facility] LABCLIA [id number] [address] GROSS DESCRIPTION Normal [facility] Comment on above: Order Comment: Speci men Type: TISSUE SPECIMENOrdering Facility: [facility] Address: [address] [place] [address] Result Comment: A. S oft Tissue, Mass, ResectionReceived fresh for intraoperative consultation labeled right precaval mass are multiple irregular pieces of green-olivarez nonviable soft tissue fragments measuring 1.5 x 0.9 x 0.3 cm in aggregate. The specimen is totally submitted in FSA 1.Gross examination performed at [facility], [address] [place] [address] CLIA # [id number] 03/17/24 1:42 PMB. Spermatic Cord, RightReceived fresh, labeled right spermatic cord is an an oriented segment of spermatic cord measuring 18 cm in length by 3 cm in diameter. The cord is surrounded by yellow-olivarez pink, lobulated fibrofatty tissue. There is moderate cautery present. The outer surface is inked entirely black. One end is arbitrarily inked blue and the opposing end is inked orange. Sectioning reveals yellow-olivarez, soft and lobulated cut surfaces with no discrete lesions or masses identified. Lens Cutter sections are submitted as follows:B1 inked blue margin, en faceB2 inked orange margin, en faceB3-B4 ocean import representative bodyKSZ March 17, 2024 3:58 PMGross examination performed at [facility], [address] [place] [address]. Soft Tissue, Mass, ResectionReceived in formalin labeled right pre-caval mass is a 4.6 x 4.4 x 3.5 cm segment of disrupted, irregular yellow friable tissue. Sectioning reveals olivarez-yellow, ill-defined, diffusely friable and irregular cut surfaces. No discrete nodules, lesions, or lymph nodes are identified. The specimen is sectioned and entirely submitted in 13 cassettes.D. Lymph NodeReceived in formalin labeled right pre caval lymph nodes is a 7.0 x 6.8 x 3.0 cm aggregate of yellow fatty tissue. Dissection reveals eight rubbery probable lymph nodes measuring 0.2 to 3.6 cm in greatest dimension. The probable lymph nodes are entirely submitted as follows: D1-D6 one node sectioned, D7-D10 one node sectioned, D11-D14 one node sectioned, D15-D18 one node sectioned, D19 two nodes intact, D20 two nodes intact.Gross examination performed at [facility], [address] [place] [address] CLIA# [id number] 03/18/24 Performed By: #### S ####[facility] LABCLIA [id number] [place] [address] [place] INTRAOPERATIVE DIAGNOSIS Normal [facility] Comment on above: Order Comment: Speci men Type: TISSUE SPECIMENOrdering Facility: [facility] Address: [address] [place] [address] Result Comment: A. S oft Tissue, Mass, ResectionFSA 1: Predominantly necrotic. No definitive viable tumor. (Dr. Claudio)Intraoperative diagnosis performed at [place] [address] CLIA# [id number] Performed By: #### S ####[facility] LABCLIA [id number] [place] [address] [place] SYNOPTIC REPORT Normal [facility] Comment on above: Order Comment: Speci men Type: TISSUE SPECIMENOrdering Facility: [facility] Address: [address] [place] [address] Result Comment: TEST IS: Retroperitoneal LymphadenectomyTESTIS: LYMPHADENECTOMY - All Cewttijyn8qi Edition - Protocol posted: 3CLINICAL Prelymphadenectomy Treatment: Chemotherapy performedTUMOR Histologic Type of Metastatic Tumor: Cannot be determined: None viable Histologic Viability of Tumor: Viable tumor not identifiedLYMPH NODES Regional Lymph Node Involvement: Number of Regional Lymph Nodes with Tumor: 0 Regional Burak Site(s) with Tumor: Precaval Size of Largest Burak Metastatic Deposit: 4.6 cm Site of Largest Burak Metastatic Deposit: Precaval Size of Largest Lymph Node or Burak Mass: 4.6 cm Extranodal Extension (ROEL): Not identified Number of Regional Lymph Nodes Examined: 8 Nonregional Lymph Node Status: All nonregional lymph nodes negative for tumor metastasispNM CLASSIFICATION (AJCC 8th Edition) Reporting of pN and (when applicable) pM category is based on information available to the pathologist at the time the report is issued. As per the AJCC (Chapter 1, 8th Ed.) it is the managing physician???s responsibility to establish the final pathologic stage based upon all pertinent information, including but potentially not limited to this pathology report. Modified Classification: y pN Category: pN0 Performed By: #### S ####[facility] [id number] [place] [address] [place] XR CHEST 1V FRONTAL PORTon 0 03-17-2024 XR CHEST 1V FRONTAL PORT Normal [facility] CNOVon 03-16-2024 CNOV Normal [facility] CNPTOUTREACHon 03-16-2024 CNPTOUTREACH Normal [facility] URINALYSIS, REFLEX MICROSCOP ICon 03-16-2024 Bilirubin Ql (U) Negative Negative [facility] Clarity (Unsp spec) Clear Clear [facility] Color (U) Colorless Yellow [facility] Glucose Test strip (U) [Mass/Vol] 3+ Abnormal Trace, Negative [facility] Hemoglobin Ql (U) Negative Negative, Trace [facility] Interpretation and review of laboratory results Abnormal [facility] Ketones Ql (U) Negative Negative, Trace [facility] Leukocyte esterase Test strip Ql (U) 75 Simon/uL Abnormal Negative, 25 Simon/uL [facility] Nitrite Ql (U) Negative Negative [facility] pH (U) 6.5 [pH] 5.0 - 8.0 [facility] Protein (U) [Mass/Vol] 2+ Abnormal Trace , Negative [facility] Specific gravity (U) [Rel density] 1.008 1.005 - 1.030 [facility] Urobilinogen Ql (U) Normal Normal [facility] Bilirubin Ql (U) Negative Normal Negative [facility] Comment on above: Order Comment: Speci men Type: URINE SPECIMENOrdering Facility: [facility] Address: [address] [place] [address] Performed By: #### L [id number] ####[facility] LABCLIA [id number] [place] [address] [place] Clarity (Unsp spec) Clear Normal Clear [facility] Comment on above: Order Comment: Speci men Type: URINE SPECIMENOrdering Facility: [facility] Address: [address] [place] [address] Performed By: #### L [id number] ####[facility] LABCLIA [id number] [place] [address] [place] Color (U) Colorless Normal Yellow [facility] Comment on above: Order Comment: Speci men Type: URINE SPECIMENOrdering Facility: [facility] Address: [address] [place] [address] Performed By: #### L [id number] ####[facility] LABIA [id number] [place] [address] [place] Glucose Test strip (U) [Mass/Vol] 3+ Abnormal Trace, Negative [facility] Comment on above: Order Comment: Speci men Type: URINE SPECIMENOrdering Facility: [facility] Address: [address] [place] [address] Performed By: #### L [id number] ####[facility] LABCLIA [id number] [place] [address] [place] Hemoglobin Ql (U) Negative Normal Negative, Trace [facility] Comment on above: Order Comment: Speci men Type: URINE SPECIMENOrdering Facility: [facility] Address: [address] [place] [address] Performed By: #### L [id number] ####[facility] LABCLIA [id number] [place] [address] [place] Ketones Ql (U) Negative Normal Negative, Trace [facility] Comment on above: Order Comment: Speci men Type: URINE SPECIMENOrdering Facility: [facility] Address: [address] [place] [address] Performed By: #### L [id number] ####[facility] LABCLIA [id number] [place] [address] [place] Leukocyte esterase Test strip Ql (U) 75 Simon/uL Abnormal Negative, 25 Simon/uL [facility] Comment on above: Order Comment: Speci men Type: URINE SPECIMENOrdering Facility: [facility] Address: [address] [place] [address] Performed By: #### L [id number] ####[facility] LABCLIA [id number] [place] [address] [place] Nitrite Ql (U) Negative Normal Negative [facility] Comment on above: Order Comment: Speci men Type: URINE SPECIMENOrdering Facility: [facility] Address: [address] [place] [address] Performed By: #### L [id number] ####[facility] LABCLIA [id number] [place] [address] [place] pH (U) 6.5 [pH] Normal 5.0-8.0 [facility] Comment on above: Order Comment: Speci men Type: URINE SPECIMENOrdering Facility: [facility] Address: [address] [place] [address] Performed By: #### L [id number] ####[facility] LABIA [id number] [place] [address] [place] Protein (U) [Mass/Vol] 2+ Abnormal Trace , Negative [facility] Comment on above: Order Comment: Speci men Type: URINE SPECIMENOrdering Facility: [facility] Address: [address] [place] [address] Performed By: #### L [id number] ####[facility] LABIA [id number] [place] [address] [place] Specific gravity (U) [Rel density] 1.008 Normal 1.005-1.030 [facility] Comment on above: Order Comment: Speci men Type: URINE SPECIMENOrdering Facility: [facility] Address: [address] [place] [address] Performed By: #### L [id number] ####[facility] LABIA [id number] [place] [address] [place] Urobilinogen Ql (U) Normal Normal Normal [facility] Comment on above: Order Comment: Speci men Type: URINE SPECIMENOrdering Facility: [facility] Address: [address] [place] [address] Performed By: #### L [id number] ####[facility] LABIA [id number] [place] [address] [place] Basic metabolic 2000 panelOr dered By: Jeannette Murillo on 03-11-2024 Anion gap [Moles/Vol] 9 mmol/L 9 - 18 mmol/L [facility] Calcium [Mass/Vol] 10.3 mg/dL High 8.5 - 10. 2 mg/dL [facility] Chloride [Moles/Vol] 103 mmol/L 97 - 10 5 mmol/L [facility] CO2 [Moles/Vol] 26 mmol/L 22 - 30 mmol/L [facility] Creatinine [Mass/Vol] 2.54 mg/dL High 0.73 - 1.22 mg/dL [facility] GFR/1.73 sq M.predicted among non-blacks MDRD (S/P/Bld) [Vol rate/Area] 33 mL/min/{1.73_m2} Low - PINF [facility] [facility] Comment on above: Estimated Glomerular Filtration Rate (eGFR) is calculated using the 2020 CKD-EPI creatinine equation. This equation utilizes serum creatinine, sex, and age as parameters. The creatinine assay has traceable calibration to isotope dilution-mass spectrometry. Refer to KDIGO guidelines for clinical interpretation. In patients with unstable renal function, e.g. those with acute kidney injury, the eGFR may not accurately reflect actual GFR. Glucose [Mass/Vol] 129 mg/dL High 74 - 99 mg/dL [facility] Comment on above: The [place] Diabete s Association (ADA) provides guidance for cutoff values for fasting glucose and random glucose. The ADA defines fasting as no caloric intake for at least 8 hours. Fasting plasma glucose results between 100 to 125 mg/dL indicate increased risk for diabetes (prediabetes). Fasting plasma glucose results greater than or equal to 126 mg/dL meet the criteria for diagnosis of diabetes. In the absence of unequivocal hyperglycemia, results should be confirmed by repeat testing. In a patient with classic symptoms of hyperglycemia or hyperglycemic crisis, random plasma glucose results greater than or equal to 200 mg/dL meet the criteria for diagnosis of diabetes. Reference: Standards of Medical Care in Diabetes 2016, [place] Diabetes Association. Diabetes Care. 2016.39(Suppl 1). Interpretation and review of laboratory results Abnormal [facility] Potassium [Moles/Vol] 3.6 mmol/L Low 3.7 - 5.1 mmol/L [facility] Sodium [Moles/Vol] 138 mmol/L 136 - 144 mmol/L [facility] Urea nitrogen [Mass/Vol] 30 mg/dL High 9 - 24 mg/dL [facility] Basic metabolic 2000 panelon 03-11-2024 Anion gap [Moles/Vol] 9 mmol/L Normal 9-18 [facility] Comment on above: Order Comment: Speci men Type: BLOOD SPECIMENOrdering Facility: [facility] Address: [facility] [place] [address] Performed By: #### 2 4321-2 ####[facility] LEON MILLTOWNCLIA [id number] [place] [address] [place] Calcium [Mass/Vol] 10.3 mg/dL High 8.5-10.2 [facility] Comment on above: Order Comment: Speci men Type: BLOOD SPECIMENOrdering Facility: [facility] Address: [address] [place] [address] Performed By: #### 2 4321-2 ####[facility] MILLTOWNCLIA [id number] [place] [address] [place] Chloride [Moles/Vol] 103 mmol/L Normal 97-105 [facility] Comment on above: Order Comment: Speci men Type: BLOOD SPECIMENOrdering Facility: [facility] Address: [address] [place] [address] Performed By: #### 2 4321-2 ####[facility]ITAL[facility]CL[facility] [id number] [place] [address] [place] CO2 [Moles/Vol] 26 mmol/L Normal 22-30 [facility] Comment on above: Order Comment: Speci men Type: BLOOD SPECIMENOrdering Facility: [facility] Address: [address] [place] [address] Performed By: #### 2 4321-2 ####[facility] MILLWNCLIA [id number] [place] [address] [place] Creatinine [Mass/Vol] 2.54 mg/dL High 0.73-1.22 [facility] Comment on above: Order Comment: Speci men Type: BLOOD SPECIMENOrdering Facility: [facility] Address: [address] [place] [address] Performed By: #### 2 4321-2 ####[facility] CITYWNCLIA [id number] [place] [address] [place] Creatinine and Glomerular filtration rate.predicted panel (S/P/Bld) 33 mL/min/1.73m??? Low >=60 [facility] Comment on above: Order Comment: Ellen hatch Type: BLOOD SPECIMENOrdering Facility: [facility] Address: [address] [place] [address] Result Comment: Elba mated Glomerular Filtration Rate (eGFR) is calculated using the 2020 CKD-EPI creatinine equation. This equation utilizes serum creatinine, sex, and age as parameters. The creatinine assay has traceable calibration to isotope dilution-mass spectrometry. Refer to KDIGO guidelines for clinical interpretation. In patients with unstable renal function, e.g. those with acute kidney injury, the eGFR may not accurately reflect actual GFR. Performed By: #### 2 4321-2 ####[facility] [id number] [place] [address] [place] Glucose [Mass/Vol] 129 mg/dL High 74-99 [facility] Comment on above: Order Comment: Ellen hatch Type: BLOOD SPECIMENOrdering Facility: [facility] Address: [address] [place] [address] Result Comment: The [place] Diabetes Association (ADA) provides guidance for cutoff values for fasting glucose and random glucose. The ADA defines fasting as no caloric intake for at least 8 hours. Fasting plasma glucose results between 100 to 125 mg/dL indicate increased risk for diabetes (prediabetes).Fasting plasma glucose results greater than or equal to 126 mg/dL meet the criteria for diagnosis of diabetes. In the absence of unequivocal hyperglycemia, results should be confirmed by repeat testing. In a patient with classic symptoms of hyperglycemia or hyperglycemic crisis, random plasma glucose results greater than or equal to 200 mg/dL meet the criteria for diagnosis of diabetes.Reference: Standards of Medical Care in Diabetes 2016, [place] [employer]. Diabetes Care. 2016.39(Suppl 1). Performed By: #### 2 4321-2 ####[facility] [id number] [place] [address] [place] Potassium [Moles/Vol] 3.6 mmol/L Low 3.7-5.1 [facility] Comment on above: Order Comment: Speci men Type: BLOOD SPECIMENOrdering Facility: [facility] Address: [address] [place] [address] Performed By: #### 2 4321-2 ####[facility] LEON WONG [id number] [place] [address] [place] Sodium [Moles/Vol] 138 mmol/L Normal 136-144 [facility] Comment on above: Order Comment: Speci men Type: BLOOD SPECIMENOrdering Facility: [facility] Address: [address] [place] [address] Performed By: #### 2 4321-2 ####[facility] MARVIN [id number] [place] [address] [place] Urea nitrogen [Mass/Vol] 30 mg/dL High 9-24 [facility] Comment on above: Order Comment: Speci men Type: BLOOD SPECIMENOrdering Facility: [facility] Address: [address] [place] [address] Performed By: #### 2 4321-2 ####[facility] AZRAPEERLESSKERMITA [id number] [place] [address] [place] CNPNon 03-11-2024 CNPN Normal [facility] AFP SerPl-mCncon 03-09-2024 AFP [Mass/Vol] ng/mL Normal <11.0 [facility] Comment on above: Order Comment: Speci men Type: BLOOD SPECIMENOrdering Facility: [facility] Address: [address] [place] [address] Result Comment: The test is typically used as an aid in managing hepatocellular carcinoma and non-seminomatous testicular cancer when used in conjunction with physical examination, histology, and other clinical evaluation procedures. Normal levels of AFP do not entirely exclude the possibility of the above-mentioned conditions, other malignancies, and chronic liver diseases. The normal range has not been established for newborns.The Alpha-Fetoprotein test was performed using the Siemens ClearPoint Metricsaur XP chemiluminometric immunoassay method. Results obtained with different assay methods or kits cannot be used interchangeably. Performed By: #### 1 834-1 ####[facility] LABCLIA [id number] [id number] [address] [place] BETA HCG QUANT TUMOR MARKERo n 03-09-2024 BETA HCG QUANT TUMOR MARKER <1 Normal 0-3 [facility] Comment on above: Order Comment: Speci men Type: BLOOD SPECIMENOrdering Facility: [facility] Address: [address] [place] [address] Result Comment: INTE RPRETIVE INFORMATION: Beta hCG, Serum Quantitation Tumor MarkerHuman chorionic gonadotropin (hCG) is a valuable aid in themanagement of patients with trophoblastic tumors, nonseminomatoustesticular tumors and seminomas when used in conjunction withinformation available from the clinical evaluation and otherdiagnostic procedures. Increased serum HCG concentrations havealso been observed in melanoma, carcinomas of the breast,gastrointestinal tract, lung, and ovaries, and in benignconditions, including cirrhosis, duodenal ulcer, and inflammatorybowel disease. This result cannot be interpreted as absoluteevidence of the presence or absence of malignant disease. Thisresult is not interpretable as a tumor marker in females.The combination of the specific monoclonal antibodies used in theRoche Beta HCG electrochemiluminescent immunoassay recognize theholo-hormone, nicked forms of hCG, the beta-core fragment, andthe free beta-subunit. Results obtained with different testmethods or kits cannot be used interchangeably. Although thisassay is FDA cleared for use in the detection of , it isnot labeled for use as a tumor marker.Access complete set of age- and/or gender-specific referenceintervals for this test in the [facility] Test Directory([facility]).This test was developed and its performance characteristicsdetermined by [facility]. It has not been cleared orapproved by the [place] Food and Drug Administration. This test wasperformed in a CLIA certified laboratory and is intended forclinical purposes.Performed By: [facility] [place], [place] [address]Ofufxnxacy Director: Matt Rodriguez MD, PhDCLIA Number: [id number] Performed By: #### B HCG ####MELotour.comIA [id number] [place] [address] CBC panel Auto (Bld)on 03-09 Erythrocyte distribution width (RBC) [Ratio] 13.7 % Normal 11.5-15.0 [facility] Comment on above: Order Comment: Speci men Type: BLOOD SPECIMENOrdering Facility: [facility] Address: [address] [place] [address] Performed By: #### 5 8410-2 ####[facility] LABIA [id number] [place] [address] [place] Hematocrit (Bld) [Volume fraction] 47.5 % Normal 39.0-51.0 [facility] Comment on above: Order Comment: Speci men Type: BLOOD SPECIMENOrdering Facility: [facility] Address: [address] [place] [address] Performed By: #### 5 8410-2 ####[facility] LABIA [id number] [address] [place] Hemoglobin (Bld) [Mass/Vol] 15.7 g/dL Normal 13.0-17.0 [facility] Comment on above: Order Comment: Speci men Type: BLOOD SPECIMENOrdering Facility: [facility] Address: [address] [place] [address] Performed By: #### 5 8410-2 ####[facility] LABIA [id number] [place] [address] [place] MCH (RBC) [Entitic mass] 29.0 pg Normal 26.0-34.0 [facility] Comment on above: Order Comment: Speci men Type: BLOOD SPECIMENOrdering Facility: [facility] Address: [address] [place] [address] Performed By: #### 5 8410-2 ####[facility] LABCLIA [id number] [place] [address] [place] MCHC (RBC) [Mass/Vol] 33.1 g/dL Normal 30.5-36.0 [facility] Comment on above: Order Comment: Speci men Type: BLOOD SPECIMENOrdering Facility: [facility] Address: [address] [place] [address] Performed By: #### 5 8410-2 ####[facility] LABIA [id number] [place] [address] [place] MCV (RBC) [Entitic vol] 87.6 fL Normal 80.0-100.0 [facility] Comment on above: Order Comment: Speci men Type: BLOOD SPECIMENOrdering Facility: [facility] Address: [address] [place] [address] Performed By: #### 5 8410-2 ####[facility] [id number] [place] [address] [place] Nucleated RBC (Bld) [#/Vol] 10*3/uL Normal <0.01 [facility] Comment on above: Order Comment: Speci men Type: BLOOD SPECIMENOrdering Facility: [facility] Address: [address] [place] [address] Performed By: #### 5 8410-2 ####[facility] LABIA [id number] [place] [address] [place] Platelet mean volume (Bld) [Entitic vol] 8.9 fL Low 9.0-12.7 [facility] Comment on above: Order Comment: Speci men Type: BLOOD SPECIMENOrdering Facility: [facility] Address: [address] [place] [address] Performed By: #### 5 8410-2 ####[facility] LABIA [id number] [place] [address] [place] Platelets (Bld) [#/Vol] 207 10*3/uL Normal 150-400 [facility] Comment on above: Order Comment: Speci men Type: BLOOD SPECIMENOrdering Facility: [facility] Address: [address] [place] [address] Performed By: #### 5 8410-2 ####[facility] LABCLIA [id number] [address] [address] [place] RBC (Bld) [#/Vol] 5.42 10*6/uL Normal 4.20-6.00 [facility] Comment on above: Order Comment: Speci men Type: BLOOD SPECIMENOrdering Facility: [facility] Address: [address] [place] [address] Performed By: #### 5 8410-2 ####[facility] LABCLIA [id number] [place] [address] [place] WBC (Bld) [#/Vol] 4.66 10*3/uL Normal 3.70-11.00 [facility] Comment on above: Order Comment: Speci men Type: BLOOD SPECIMENOrdering Facility: [facility] Address: [address] [place] [address] Performed By: #### 5 8410-2 ####[facility] LABCLIA [id number] [place] [address] [place] CNOVon 03-09-2024 CNOV Normal [facility] CNPTOUTREACHon 03-09-2024 CNPTOUTREACH Normal [facility] CONFIRM BLOOD TYPEon 024 ABO O Normal [facility] Comment on above: Order Comment: Speci men Type: BLOOD SPECIMENOrdering Facility: [facility] Address: [address] [place] [address] Performed By: #### C ONABO ####[facility] BLOOD BANKCLIA [id number] [place] [address] [place] Rh Nom (Bld) Positive Normal [facility] Comment on above: Order Comment: Speci men Type: BLOOD SPECIMENOrdering Facility: [facility] Address: [address] [place] [address] Performed By: #### C ONABO ####CC [facility] BLOOD BANKIA [id number] [place] [id number] [place] Comprehensive metabolic 2000 panelon 03-09-2024 Albumin [Mass/Vol] 4.2 g/dL Normal 3.9-4.9 [facility] Comment on above: Order Comment: Speci men Type: BLOOD SPECIMENOrdering Facility: [facility] Address: [address] [place] [address] Performed By: #### 2 4323-8, 308-1 ####[facility] LABCLIA [id number] [place] [address] [place] ALP [Catalytic activity/Vol] 178 U/L High 38-113 [facility] Comment on above: Order Comment: Speci men Type: BLOOD SPECIMENOrdering Facility: [facility] Address: [address] [place] [address] Performed By: #### 2 4323-8, 3083- ####[facility] LABIA [id number] [place] [address] [place] ALT [Catalytic activity/Vol] 26 U/L Normal 10-54 [facility] Comment on above: Order Comment: Speci men Type: BLOOD SPECIMENOrdering Facility: [facility] Address: [address] [place] [address] Performed By: #### 2 4323-8, 3083- ####[facility] LABIA [id number] [place] [id number] [place] Anion gap [Moles/Vol] 15 mmol/L Normal 9-18 [facility] Comment on above: Order Comment: Speci men Type: BLOOD SPECIMENOrdering Facility: [facility] Address: [address] [place] [address] Performed By: #### 2 4323-8, 3084-1 ####[facility] LABCLIA [id number] [place] [id number] [place] AST [Catalytic activity/Vol] 26 U/L Normal 14-40 [facility] Comment on above: Order Comment: Speci men Type: BLOOD SPECIMENOrdering Facility: [facility] Address: [address] [place] [address] Performed By: #### 2 4323-8, 3083- ####[facility] LABCLIA [id number] [place] [address] [place] Bilirubin [Mass/Vol] 0.2 mg/dL Normal 0.2-1.3 [facility] Comment on above: Order Comment: Speci men Type: BLOOD SPECIMENOrdering Facility: [facility] Address: [address] [place] [address] Performed By: #### 2 4323-8, 3083-11 ####[facility] LABCLIA [id number] [place] [address] [place] Calcium [Mass/Vol] 10.6 mg/dL High 8.5-10.2 [facility] Comment on above: Order Comment: Speci men Type: BLOOD SPECIMENOrdering Facility: [facility] Address: [address] [place], [place] [address] Performed By: #### 2 4323-8, 3083-11 ####[facility] LABCLIA [id number] [place] [address] [place] Chloride [Moles/Vol] 100 mmol/L Normal 97-105 [facility] Comment on above: Order Comment: Speci men Type: BLOOD SPECIMENOrdering Facility: [facility] Address: [address] [place] [address] Performed By: #### 2 4323-8, 3083- ####[facility] LABCLIA [id number] [place] [id number] [place] CO2 [Moles/Vol] 25 mmol/L Normal 22-30 [facility] Comment on above: Order Comment: Speci men Type: BLOOD SPECIMENOrdering Facility: [facility] Address: [address] [place] [address] Performed By: #### 2 4323-8, 3083-11 ####[facility] LABIA [id number] [place] [id number] [place] Creatinine [Mass/Vol] 2.74 mg/dL High 0.73-1.22 [facility] Comment on above: Order Comment: Speci men Type: BLOOD SPECIMENOrdering Facility: [facility] Address: [address] [place] [address] Performed By: #### 2 4323-8, 3083-11 ####[facility] [id number] [place] [address] [place] Creatinine and Glomerular filtration rate.predicted panel (S/P/Bld) 30 mL/min/1.73m??? Low >=60 [facility] Comment on above: Order Comment: Speci men Type: BLOOD SPECIMENOrdering Facility: [facility] Address: [address] [place] [address] Result Comment: Elba mated Glomerular Filtration Rate (eGFR) is calculated using the 2020 CKD-EPI creatinine equation. This equation utilizes serum creatinine, sex, and age as parameters. The creatinine assay has traceable calibration to isotope dilution-mass spectrometry. Refer to KDIGO guidelines for clinical interpretation. In patients with unstable renal function, e.g. those with acute kidney injury, the eGFR may not accurately reflect actual GFR. Performed By: #### 2 4323-8, 3083-11 ####[facility] LABIA [id number] [place] [id number] [place] Glucose [Mass/Vol] 89 mg/dL Normal 74-99 [facility] Comment on above: Order Comment: Speci men Type: BLOOD SPECIMENOrdering Facility: [facility] Address: [address] [place] [address] Result Comment: The [place] Diabetes [employer] (ADA) provides guidance for cutoff values for fasting glucose and random glucose. The ADA defines fasting as no caloric intake for at least 8 hours. Fasting plasma glucose results between 100 to 125 mg/dL indicate increased risk for diabetes (prediabetes).Fasting plasma glucose results greater than or equal to 126 mg/dL meet the criteria for diagnosis of diabetes. In the absence of unequivocal hyperglycemia, results should be confirmed by repeat testing. In a patient with classic symptoms of hyperglycemia or hyperglycemic crisis, random plasma glucose results greater than or equal to 200 mg/dL meet the criteria for diagnosis of diabetes.Reference: Standards of Medical Care in Diabetes 2016, [place] [employer]. Diabetes Care. 2016.39(Suppl 1). Performed By: #### 2 4323-8, 3083-11 ####[facility] LABCLIA [id number] [place] [address] [place] Potassium [Moles/Vol] 4.0 mmol/L Normal 3.7-5.1 [facility] Comment on above: Order Comment: Speci men Type: BLOOD SPECIMENOrdering Facility: [facility] Address: [address] [place] [address] Performed By: #### 2 43201-22, 3083-11 ####[facility] LABCLIA [id number] [place] [address] [place] Protein [Mass/Vol] 7.3 g/dL Normal 6.3-8.0 [facility] Comment on above: Order Comment: Speci men Type: BLOOD SPECIMENOrdering Facility: [facility] Address: [address] [place] [address] Performed By: #### 2 43201-22, 3083-11 ####[facility] LABCLIA [id number] [place] [address] [place] Sodium [Moles/Vol] 140 mmol/L Normal 136-144 [facility] Comment on above: Order Comment: Speci men Type: BLOOD SPECIMENOrdering Facility: [facility] Address: [address] [place] [address] Performed By: #### 2 4328, 3083-11 ####[facility] LABCLIA [id number] [place] [address] [place] Urea nitrogen [Mass/Vol] 29 mg/dL High 9-24 [facility] Comment on above: Order Comment: Speci men Type: BLOOD SPECIMENOrdering Facility: [facility] Address: [address] [place] [address] Performed By: #### 2 4323-8, 3084-1 ####[facility] [id number] [address] [place] HISTORY PHYSICALon HISTORY PHYSICAL Normal [facility] PT panel Coag (PPP)on 2023 INR Coag (PPP) [Relative time] 1.0 {INR} Normal 0.9-1.3 [facility] Comment on above: Order Comment: Speci men Type: BLOOD SPECIMENOrdering Facility: [facility] Address: [address] [place] [address] Result Comment: Linda min K Antagonist (VKA) Therapeutic Range: INR 2 to 3 (Target INR of 2.5)Note: For patients treated with VKA drugs, such as warfarin, the [place] [employer] 2012 Guideline recommends a therapeutic INR range of 2 to 3 (target INR of 2.5). This recommendation includes high-risk patients with antiphospholipid syndrome with previous arterial or venous thromboembolism, current-generation mechanical or bioprosthetic aortic heart valve replacement.Note: Patients with mechanical aortic valve replacement and additional risk factors for thromboembolic events (atrial fibrillation, previous thromboembolism, LV dysfunction, hypercoagulable conditions) or an older generation mechanical AVR (i.e., ball in-Cage) or any mechanical MVR should have a INR therapeutic range of 2.5 to 3.5 (target INR of 3).Nusrat GH, et al. Chest 2012, 141:7S-47SNishimura RA, et al. [facility] 2017, 70: 252-289 Performed By: #### 1 4979-9, 64808-6 ####[facility] [id number] [address] [address] [id number], [place] [address] [place] PT Coag (PPP) [Time] 11.1 s Normal 9.7-13.0 [facility] Comment on above: Order Comment: Speci men Type: BLOOD SPECIMENOrdering Facility: [facility] Address: [address] [place] [address] Performed By: #### 1 4979-9, 32910-3 ####[facility] LABCLIA [id number] [address] OF [facility] TYPE AND SCREEN,30 DAYon ABO O Normal [facility] [place] Comment on above: Order Comment: Speci men Type: BLOOD SPECIMENOrdering Facility: [facility] Address: [address] [place] [address] Performed By: #### T SCR30 ####[facility] BLOOD BANKCLIA [id number] [address] [place] HISTORICAL AB SCR STATUS Negative Normal [facility] Comment on above: Order Comment: Speci men Type: BLOOD SPECIMENOrdering Facility: [facility] Address: [address] [place] [address] Performed By: #### T SCR30 ####[facility] BLOOD BANKCLIA [id number] [place] [address] [place] Rh Nom (Bld) Positive Normal [facility] Comment on above: Order Comment: Speci men Type: BLOOD SPECIMENOrdering Facility: [facility] Address: [address] [place] [address] Performed By: #### T SCR30 ####[facility] BLOOD BANKCLIA [id number] [place] [address] [place] Urate SerPl-mCncon 4 Urate [Mass/Vol] 11.2 mg/dL High 4.0-8.1 [facility] Comment on above: Order Comment: Speci men Type: BLOOD SPECIMENOrdering Facility: [facility] Address: [address] [place] [address] Performed By: #### 2 4323-8, 3084-1 ####[facility] LABCLIA [id number] [place] [id number] [place] aPTT PPPon 03-09-2024 aPTT Coag (PPP) [Time] 29.9 s Normal 23.0-32.4 [facility] Comment on above: Order Comment: Speci men Type: BLOOD SPECIMENOrdering Facility: [facility] Address: [address] [place] [address] Performed By: #### 1 4979-9, 29082-7 ####[facility] LABCLIA [id number] [address] [place] Basic metabolic 2000 panelon 03-03-2024 Anion gap [Moles/Vol] 8 mmol/L Low 9 - 18 mmol/L [facility] Calcium [Mass/Vol] 10.6 mg/dL High 8.5 - 10. 2 mg/dL [facility] Chloride [Moles/Vol] 100 mmol/L 97 - 10 5 mmol/L [facility] CO2 [Moles/Vol] 28 mmol/L 22 - 30 mmol/L [facility] Creatinine [Mass/Vol] 2.37 mg/dL High 0.73 - 1.22 mg/dL [facility] Estimated Glomerular Filtration Rate 36 mL/min/1.73m Low >=60 mL/min/1.73m [facility] Glucose [Mass/Vol] 89 mg/dL 74 - 99 mg/dL [facility] Potassium [Moles/Vol] 3.0 mmol/L Low 3.7 - 5.1 mmol/L [facility] Sodium [Moles/Vol] 136 mmol/L 136 - 144 mmol/L [facility] Urea nitrogen [Mass/Vol] 29 mg/dL High 9 - 24 mg/dL [facility] CBC W Auto Differential pane l (Bld)on 02-23-2024 Basophils (Bld) [#/Vol] 0.05 10*3/uL <0.11 k/uL [facility] Basophils/100 WBC (Bld) 0.9 % [facility] Differential cell count method Nom (Bld) Auto [facility] Eosinophils (Bld) [#/Vol] 0.26 10*3/uL <0.46 k/uL [facility] Eosinophils/100 WBC (Bld) 4.6 % [facility] Erythrocyte distribution width (RBC) [Ratio] 13.6 % 11.5 - 15.0 % [facility] Hematocrit (Bld) [Volume fraction] 43.4 % 39.0 - 51.0 % [facility] Hemoglobin (Bld) [Mass/Vol] 14.7 g/dL 13.0 - 17.0 g/dL [facility] Immature granulocytes (Bld) [#/Vol] 0.03 10*3/uL <0.10 k/uL [facility] Immature granulocytes/100 WBC (Bld) 0.5 % [facility] Lymphocytes (Bld) [#/Vol] 0.54 10*3/uL Low 1.00 - 4.00 k/uL [facility] Lymphocytes/100 WBC (Bld) 9.5 % [facility] MCH (RBC) [Entitic mass] 29.3 pg 26.0 - 34.0 pg [facility] MCHC (RBC) [Mass/Vol] 33.9 g/dL 30.5 - 36.0 g/dL [facility] MCV (RBC) [Entitic vol] 86.6 fL 80.0 - 100.0 fL [facility] Monocytes (Bld) [#/Vol] 0.48 10*3/uL <0.87 k/uL [facility] Monocytes/100 WBC (Bld) 8.5 % [facility] Neutrophils (Bld) [#/Vol] 4.30 10*3/uL 1.45 - 7.50 k/uL [facility] Neutrophils/100 WBC (Bld) 76.0 % [facility] Nucleated RBC (Bld) [#/Vol] <0.01 k/uL [facility] Nucleated RBC/100 WBC (Bld) [Ratio] 0.0 /100 WBC [facility] Platelet mean volume (Bld) [Entitic vol] 8.4 fL Low 9.0 - 12.7 fL [facility] Platelets (Bld) [#/Vol] 198 10*3/uL 150 - 400 k/uL [facility] RBC (Bld) [#/Vol] 5.01 10*6/uL 4.20 - 6.0 0 m/uL [facility] WBC (Bld) [#/Vol] 5.66 10*3/uL 3.70 - 11. 00 k/uL [facility] Comprehensive metabolic 2000 panelon 02-23-2024 Albumin [Mass/Vol] 4.0 g/dL 3.9 - 4.9 g/dL [facility] ALP [Catalytic activity/Vol] 186 U/L High 38 - 113 U/L [facility] ALT [Catalytic activity/Vol] 22 U/L 10 - 54 U/L [facility] Anion gap [Moles/Vol] 13 mmol/L 9 - 18 mmol/L [facility] AST [Catalytic activity/Vol] 18 U/L 14 - 40 U/L [facility] Bilirubin [Mass/Vol] 0.2 mg/dL 0.2 - 1 .3 mg/dL [facility] Calcium [Mass/Vol] 10.3 mg/dL High 8.5 - 10. 2 mg/dL [facility] Chloride [Moles/Vol] 103 mmol/L 97 - 10 5 mmol/L [facility] CO2 [Moles/Vol] 23 mmol/L 22 - 30 mmol/L [facility] Creatinine [Mass/Vol] 2.21 mg/dL High 0.73 - 1.22 mg/dL [facility] Estimated Glomerular Filtration Rate 39 mL/min/1.73m Low >=60 mL/min/1.73m [facility] Glucose [Mass/Vol] 165 mg/dL High 74 - 99 mg/dL [facility] Potassium [Moles/Vol] 2.8 mmol/L Low 3.7 - 5.1 mmol/L [facility] Protein [Mass/Vol] 7.3 g/dL 6.3 - 8.0 g/dL [facility] Sodium [Moles/Vol] 139 mmol/L 136 - 144 mmol/L [facility] Urea nitrogen [Mass/Vol] 43 mg/dL High 9 - 24 mg/dL [facility] LD LACTATE DEHYDROon 024 LDH [Catalytic activity/Vol] 204 U/L 135 - 225 U/L [facility] MAGNESIUM BLDon 02-23-2024 Magnesium [Mass/Vol] 1.8 mg/dL 1.7 - 2 .3 mg/dL [facility] ALPHA FETOPROTEIN BLon 02-15 AFP [Mass/Vol] <11.0 ng/mL [facility] Basic metabolic 2000 panelon 02-16-2024 Anion gap [Moles/Vol] 14 mmol/L 9 - 18 mmol/L [facility] Calcium [Mass/Vol] 9.8 mg/dL 8.5 - 10. 2 mg/dL [facility] Chloride [Moles/Vol] 101 mmol/L 97 - 10 5 mmol/L [facility] CO2 [Moles/Vol] 25 mmol/L 22 - 30 mmol/L [facility] Creatinine [Mass/Vol] 2.44 mg/dL High 0.73 - 1.22 mg/dL [facility] Estimated Glomerular Filtration Rate 35 mL/min/1.73m Low >=60 mL/min/1.73m [facility] Glucose [Mass/Vol] 84 mg/dL 74 - 99 mg/dL [facility] Potassium [Moles/Vol] 3.3 mmol/L Low 3.7 - 5.1 mmol/L [facility] Sodium [Moles/Vol] 140 mmol/L 136 - 144 mmol/L [facility] Urea nitrogen [Mass/Vol] 36 mg/dL High 9 - 24 mg/dL [facility] CBC W Auto Differential pane l (Bld)on 02-16-2024 Basophils (Bld) [#/Vol] 0.06 10*3/uL <0.11 k/uL [facility] Basophils/100 WBC (Bld) 1.0 % [facility] Differential cell count method Nom (Bld) Auto [facility] Eosinophils (Bld) [#/Vol] 0.25 10*3/uL <0.46 k/uL [facility] Eosinophils/100 WBC (Bld) 4.3 % [facility] Erythrocyte distribution width (RBC) [Ratio] 13.9 % 11.5 - 15.0 % [facility] Hematocrit (Bld) [Volume fraction] 43.5 % 39.0 - 51.0 % [facility] Hemoglobin (Bld) [Mass/Vol] 14.8 g/dL 13.0 - 17.0 g/dL [facility] Immature granulocytes (Bld) [#/Vol] 0.03 10*3/uL <0.10 k/uL [facility] Immature granulocytes/100 WBC (Bld) 0.5 % [facility] Lymphocytes (Bld) [#/Vol] 0.67 10*3/uL Low 1.00 - 4.00 k/uL [facility] Lymphocytes/100 WBC (Bld) 11.5 % [facility] MCH (RBC) [Entitic mass] 29.4 pg 26.0 - 34.0 pg [facility] MCHC (RBC) [Mass/Vol] 34.0 g/dL 30.5 - 36.0 g/dL [facility] MCV (RBC) [Entitic vol] 86.5 fL 80.0 - 100.0 fL [facility] Monocytes (Bld) [#/Vol] 0.65 10*3/uL <0.87 k/uL [facility] Monocytes/100 WBC (Bld) 11.1 % [facility] Neutrophils (Bld) [#/Vol] 4.19 10*3/uL 1.45 - 7.50 k/uL [facility] Neutrophils/100 WBC (Bld) 71.6 % [facility] Nucleated RBC (Bld) [#/Vol] <0.01 k/uL [facility] Nucleated RBC/100 WBC (Bld) [Ratio] 0.0 /100 WBC [facility] Platelet mean volume (Bld) [Entitic vol] 8.9 fL Low 9.0 - 12.7 fL [facility] Platelets (Bld) [#/Vol] 170 10*3/uL 150 - 400 k/uL [facility] RBC (Bld) [#/Vol] 5.03 10*6/uL 4.20 - 6.0 0 m/uL [facility] WBC (Bld) [#/Vol] 5.85 10*3/uL 3.70 - 11. 00 k/uL [facility] Basic metabolic 2000 panelon 02-06-2024 Anion gap [Moles/Vol] 8 mmol/L Low 9 - 18 mmol/L [facility] Calcium [Mass/Vol] 10.1 mg/dL 8.5 - 10. 2 mg/dL [facility] Chloride [Moles/Vol] 104 mmol/L 97 - 10 5 mmol/L [facility] CO2 [Moles/Vol] 25 mmol/L 22 - 30 mmol/L [facility] Creatinine [Mass/Vol] 2.27 mg/dL High 0.73 - 1.22 mg/dL [facility] Estimated Glomerular Filtration Rate 38 mL/min/1.73m Low >=60 mL/min/1.73m [facility] Glucose [Mass/Vol] 130 mg/dL High 74 - 99 mg/dL [facility] Potassium [Moles/Vol] 3.4 mmol/L Low 3.7 - 5.1 mmol/L [facility] Sodium [Moles/Vol] 137 mmol/L 136 - 144 mmol/L [facility] Urea nitrogen [Mass/Vol] 31 mg/dL High 9 - 24 mg/dL [facility] URIC ACID BLOODon 02-04-2024 Urate [Mass/Vol] 9.9 mg/dL High 4.0 - 8.1 mg/dL [facility] GLUCOSE, BLOOD (POC)on 01-26 Glucose [Mass/Vol] 88 mg/dL 74 - 99 mg/dL [facility] Guidance for deep biopsy of Boneon 01-27-2024 IMPRESSION: SUCCESSF UL CT GUIDED L3 SPINOUS PROCESS BIOPSY DESCRIBED. Attending Radiologist: Dr. Mai Way MD Etl Data Architect: Dr. Zahra Valencia MD (fellow) The procedure was performed by the the medical record assistant, and the attending radiologist personally supervised the entire procedure. Operations Staff Specialist [facility] Transcribe Date/Time: Jan 27 2024 3:22P Dictated by : ZAHRA VALENCIA MD This examination was interpreted and the report reviewed and electronically signed by: MAI WAY MD on Jan 27 2024 8:53PM [facility] DIVISION OF RADIOLOGY * * *Final Report* * * DATE OF EXAM: Jan 27 2024 2:57PM [facility] 2036 - CT BX RIB/PELV/PAYTON/SPINE PROC / PROCEDURE REASON: multiple diagnoses * * * * Physician Interpretation * * * * CT GUIDED L3 SPINOUS PROCESS BIOPSY. 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 CONSENT: The risks, benefits, treatment options, potential complications and personnel to be involved were discussed (including the instruments to be used, contrast and anesthesia administration) with the patient. All questions were answered and consent was obtained. The patient indicated willingness to proceed. GENERAL: a) Medication Reconciliation: The patient's medications and allergies were reviewed in the electronic medical record and reconciled to the proposed procedure/treatment. Pre-procedure Sign-in: Safety Checklist Performed Yes b) Positioning: The patient was placed prone on the table. c) The area was then sterilely prepped and draped. d) Time Out: A time out was performed immediately prior to procedure start with the nursing, anesthesia and interventional team, correctly identifying the patient name, date of , procedure, anatomy (including marking of site and side), patient position, procedure consent form, relevant diagnostic and radiology test results, antibiotic administration, safety precautions, and procedure-specific equipment needs. Time Out Time: 1442 ANESTHESIA: a) Local anesthesia: 5 mL 1% Lidocaine b) Anesthesia Type: Induction of moderate procedural sedation. c) Anesthesia Start Time: 1439 d) Anesthesia Medications: 25 mcg Fentanyl; 0.5 mg Midazolam; e) Intra-service time (starts with administration of agent, ends when continuous [id number] time ends): 21 minutes. f) Patient monitoring:I personally supervised and directed an independent trained observer who assisted in monitoring the patient?s level of consciousness and physiological status throughout the procedure. LOCALIZATION: Counting reference: Lumbosacral junction. For the purposes of this report, L4-5 is considered the level of the iliac crest and assume there are 5 lumbar-type vertebrae. Anatomic variant: None. The target was visible on CT. PROCEDURE: a) Procedure Details: The area was marked, prepped, and draped. Local anesthesia was administered. Under CT guidance an 11 gauge On-control was advanced into the posterior spinous process of L3. 3x passes with a 16 Gauge Bard needle were made through lytic lesion yielding 3 core samples, subsequently a single pass with a 11-gauge bone marrow biopsy needle was made yielding 1x 3 cm core. All needles were removed. Images were stored. b) Devices used: Biopsy Needle: 11 Gauge On Control c) Estimated Blood Loss: 0 mL d) Number and Type of Removed Specimens: 3x 16GA cores and 1x 11GA core CONTRAST CT imaging was performed without contrast. RADIATION DOSE a) Image guidance: CT guidance b) Radiation: CT Radiation dose: Integrated Dose-length product (DLP) for this visit = 472 mGy*cm. CT Dose Reduction Employed: Automated exposure control (AEC) POST PROCEDURE: a) Hemostasis: Hemostasis was achieved using light manual compression. b) Sign-out: Communication Performed N/A c) Procedure End Time: 1500 d) Conclusion: The patient was transferred to the biopsy recovery room in stable condition. COMPLICATIONS: a) Significant Patient Complication: None b) Complications during the procedure: None RESULTS: CT-guided biopsy of the L3 spinous process lytic lesion. DIVISION OF RADIOLOGY Provider, Cary Randall - 01/27/2024 * * *Final Report* * * DATE OF EXAM: Jan 27 2024 2:57PM [facility] 2036 - CT BX RIB/PELV/PAYTON/SPINE PROC / PROCEDURE REASON: multiple diagnoses * * * * Physician Interpretation * * * * CT GUIDED L3 SPINOUS PROCESS BIOPSY. 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 CONSENT: The risks, benefits, treatment options, potential complications and personnel to be involved were discussed (including the instruments to be used, contrast and anesthesia administration) with the patient. All questions were answered and consent was obtained. The patient indicated willingness to proceed. GENERAL: a) Medication Reconciliation: The patient's medications and allergies were reviewed in the electronic medical record and reconciled to the proposed procedure/treatment. Pre-procedure Sign-in: Safety Checklist Performed Yes b) Positioning: The patient was placed prone on the table. c) The area was then sterilely prepped and draped. d) Time Out: A time out was performed immediately prior to procedure start with the nursing, anesthesia and interventional team, correctly identifying the patient name, date of , procedure, anatomy (including marking of site and side), patient position, procedure consent form, relevant diagnostic and radiology test results, antibiotic administration, safety precautions, and procedure-specific equipment needs. Time Out Time: 1442 ANESTHESIA: a) Local anesthesia: 5 mL 1% Lidocaine b) Anesthesia Type: Induction of moderate procedural sedation. c) Anesthesia Start Time: 1439 d) Anesthesia Medications: 25 mcg Fentanyl; 0.5 mg Midazolam; e) Intra-service time (starts with administration of agent, ends when continuous [id number] time ends): 21 minutes. f) Patient monitoring:I personally supervised and directed an independent trained observer who assisted in monitoring the patient?s level of consciousness and physiological status throughout the procedure. LOCALIZATION: Counting reference: Lumbosacral junction. For the purposes of this report, L4-5 is considered the level of the iliac crest and assume there are 5 lumbar-type vertebrae. Anatomic variant: None. The target was visible on CT. PROCEDURE: a) Procedure Details: The area was marked, prepped, and draped. Local anesthesia was administered. Under CT guidance an 11 gauge On-control was advanced into the posterior spinous process of L3. 3x passes with a 16 Gauge Bard needle were made through lytic lesion yielding 3 core samples, subsequently a single pass with a 11-gauge bone marrow biopsy needle was made yielding 1x 3 cm core. All needles were removed. Images were stored. b) Devices used: Biopsy Needle: 11 Gauge On Control c) Estimated Blood Loss: 0 mL d) Number and Type of Removed Specimens: 3x 16GA cores and 1x 11GA core CONTRAST CT imaging was performed without contrast. RADIATION DOSE a) Image guidance: CT guidance b) Radiation: CT Radiation dose: Integrated Dose-length product (DLP) for this visit = 472 mGy*cm. CT Dose Reduction Employed: Automated exposure control (AEC) POST PROCEDURE: a) Hemostasis: Hemostasis was achieved using light manual compression. b) Sign-out: Communication Performed N/A c) Procedure End Time: 1500 d) Conclusion: The patient was transferred to the biopsy recovery room in stable condition. COMPLICATIONS: a) Significant Patient Complication: None b) Complications during the procedure: None RESULTS: CT-guided biopsy of the L3 spinous process lytic lesion. IMPRESSION IMPRESSION: SUCCESSFUL CT GUIDED L3 SPINOUS PROCESS BIOPSY DESCRIBED. Attending Radiologist: Dr. Mai Way MD Etl Data Architect: Dr. Zahra Valencia MD (fellow) The procedure was performed by the the medical record assistant, and the attending radiologist personally supervised the entire procedure. Operations Staff Specialist Security: [facility] Transcribe Date/Time: Jan 27 2024 3:22P Dictated by : ZAHRA VALENCIA MD This examination was interpreted and the report reviewed and electronically signed by: MAI WAY MD on Jan 27 2024 8:53PM EST [facility] Radiology Study observation (narrative) [facility] Guidance for deep biopsy of BoneOrdered By: [facility] Provider on 01-27-2024 [facility] URINALYSIS, REFLEX MICROSCOP ICon 01-27-2024 Bilirubin Ql (U) Negative Negative [facility] Clarity (Unsp spec) Clear Clear [facility] Color (U) Light Yellow [facility] Glucose Test strip (U) [Mass/Vol] 3+ Abnormal Trace, Negative [facility] Hemoglobin Ql (U) Negative Negative, Trace [facility] Ketones Ql (U) Negative Negative, Trace [facility] Leukocyte esterase Test strip Ql (U) Negative Negative, 25 Simon/uL [facility] Nitrite Ql (U) Negative Negative [facility] pH (U) 6.5 [pH] 5.0 - 8.0 [facility] Protein (U) [Mass/Vol] 2+ Abnormal Trace , Negative [facility] Specific gravity (U) [Rel density] 1.010 1.005 - 1.030 [facility] Urobilinogen Ql (U) Normal Normal [facility] Absolute lymphocyte countOrd ered By: Floyd Guardado on 12-30-2023 Lymphocytes Auto (Unsp spec) [#/Vol] 0.52 10*3/uL 0.83-4.51 [facility] Automated lymphocyte count a s percentage of total leukocytesOrdered By: Floyd Guardado on 12-30-2023 Lymphocytes/100 WBC Auto (Unsp spec) 13.2 % 19-41 [facility] Basophil percentageOrdered B y: Floyd Guardado on 12-30-2023 Basophil percentage 3.3 mg/dL 2.5-4.9 [facility] Basophils/100 WBC (Bld) 0.8 % 0-1 [facility] Bilirubin [Mass/Vol] 0.30 mg/dL 0.20-1.00 [facility] Comment on above: For patients on eltr ombopag therapy, use of Dimension Oolitic TBIL is not recommended. Chloride [Moles/Vol] 106 mmol/L 98-107 [facility] Cholesterol [Mass/Vol] 142 mg/dL <200 [facility] Comment on above: <200 mg/dL Desirable 200-240 mg/dL Borderline >240 mg/dL High Risk Eosinophils/100 WBC (Bld) 9.4 % 0-5 [facility] Glucose [Mass/Vol] 126 mg/dL 74-106 [facility] Comment on above: Fasting Glucose resu lt greater than or equal to 126 mg/dL suggests DIABETES MELLITUS per A.D.A. criteria. Hemoglobin (Bld) [Mass/Vol] 13.5 g/dL 13.0-16.5 [facility] Monocytes/100 WBC (Bld) 9.7 % 0-10 [facility] Neutrophils (Bld) [#/Vol] 2.6 10*3/uL 2.0-7.7 [facility] Neutrophils/100 WBC (Bld) 66.6 % 47-70 [facility] Potassium [Moles/Vol] 3.7 mmol/L 3.5-5.1 [facility] Protein [Mass/Vol] 7.3 g/dL 6.4-8.2 [facility] Sodium [Moles/Vol] 141 mmol/L 136-145 [facility] Triglyceride [Mass/Vol] 270 mg/dL <199 [facility] Comment on above: The drugs N-Acetylcy steine and Metamizole may falsely depress this assay.Serum Triglycerides Reference Interval Normal <150 mg/dL Borderline high 150 - 199 mg/dL High 200 - 499 mg/dL Very High > or = 500 mg/dL WBC (Bld) [#/Vol] 3.9 10*3/uL 4.4-11.0 [facility] Determination of erythrocyte mean corpuscular volume (MCV)Ordered By: Floyd Guardado on 12-30-2023 MCV (RBC) [Entitic vol] 93.3 fL 80-94 [facility] Erythrocyte distribution wid th ratioOrdered By: Floyd Guardado on 12-30-2023 Erythrocyte distribution width (RBC) [Ratio] 14.3 % 11.6-14.6 [facility] Erythrocyte distribution wid th standard deviationOrdered By: Floyd Guardado on 12-30-2023 Erythrocyte distribution width (RBC) [Entitic vol] 48.6 fL 35.1-43.9 [facility] Hematocrit Auto (Bld) [Volum e fraction]Ordered By: Floyd Guardado on 12-30-2023 Hematocrit (Bld) [Volume fraction] 41.6 % 40-54 [facility] Immature granulocytes/100 WB C Auto (Bld)Ordered By: Floyd Guardado on 12-30-2023 Immature granulocytes/100 WBC (Bld) 0.300 % 0.0-0.9 [facility] Comment on above: IG% - Immature Granu locytes (promyelocytes, myelocytes and metamyelocytes) > 1% indicates that a LEFT SHIFT is Present. Laboratory - Chemistry and C hemistry - challengeOrdered By: Floyd Guardado on 12-30-2023 Albumin/Globulin [Mass ratio] 1.0 {ratio} 0.9-2.4 [facility] ALP [Catalytic activity/Vol] 160 U/L 45-117 [facility] ALT [Catalytic activity/Vol] 31 U/L 16-61 [facility] Cholesterol in HDL [Mass/Vol] 39 mg/dL >40 [facility] Comment on above: The drugs N-Acetylcy steine and Metamizole may falsely depress this assay. Reference Range HDL <40 mg/dL Low HDL Cholesterol HDL >or= 60 mg/dL High HDL Cholesterol Cholesterol in LDL [Mass/Vol] 49 mg/dL 0-130 [facility] CO2 [Moles/Vol] 23.0 mmol/L 21.0-32.0 [facility] Globulin (S) [Mass/Vol] 3.7 g/dL 2.2-4.2 [facility] Urea nitrogen/Creatinine [Mass ratio] 15.3 mg/mg 10-20 [facility] Laboratory - Hematology and Cell countsOrdered By: Floyd Guardado on 12-30-2023 MCH (RBC) [Entitic mass] 30.3 pg 27.0-32.0 [facility] MCHC (RBC) [Mass/Vol] 32.5 g/dL 32-36 [facility] Nucleated RBC/100 WBC (Bld) [Ratio] 0 % 0-5 [facility] Platelet mean volume (Bld) [Entitic vol] 9.2 fL 6.2-12.0 [facility] Platelets (Bld) [#/Vol] 195 10*3/uL 150-450 [facility] No Panel InformationOrdered By: Floyd Guardado on 12-30-2023 Estimated GFR (MDRD) Amer 39 mL/min >60 [facility] Comment on above: GFR Calc Estimated GFR (MDRD) Non-Af Amer 32 mL/min >60 [facility] Comment on above: Non- GFR Calc Vitamin D 25-Hydroxy 41.4 ng/mL [facility] Comment on above: Vitamin D 25(OH) Sta tus Range Deficiency <20 ng/mL (50nmol/L) Insufficiency 20 - 30 ng/mL (50 - 75 nmol/L) Sufficiency 30 - 100 ng/mL (75 - 250 nmol/L) Toxicity >100 ng/mL (>250 nmol/L) VLDL Cholesterol 54 mg/dL 5-40 [facility] RBC Auto (Bld) [#/Vol]Ordere d By: Floyd Guardado on 12-30-2023 RBC (Bld) [#/Vol] 4.46 10*6/uL 4.6-6.2 [facility] Serum or plasma calcium carl urement (mass/volume)Ordered By: Floyd Guardado on 12-30-2023 Calcium [Mass/Vol] 9.6 mg/dL 8.5-10.1 [facility] Serum or plasma creatinine m easurement (mass/volume)Ordered By: Floyd Guardado on 12-30-2023 Creatinine [Mass/Vol] 2.48 mg/dL 0.70-1.30 [facility] [place] Comment on above: The validity of the calculated GFR & GFRAA in patients over 70 years has not been determined. Clinical correlation is essential. Serum or plasma urea nitroge n measurement (mass/volume)Ordered By: Floyd Guardado on 12-30-2023 Urea nitrogen [Mass/Vol] 38 mg/dL 7-18 [facility] Thin prep Papanicolaou smear with manual screeningOrdered By: Floyd Guardado on 12-30-2023 Protein (U) [Mass/Vol] 113.1 mg/dL 0.0-11.8 [facility] Thin prep Papanicolaou smear with manual screening 3.6 g/dL 3.2-5.0 [facility] Thin prep Papanicolaou smear with manual screening 23 U/L 15-37 [facility] Thin prep Papanicolaou smear with manual screening 12 5-15 [facility] Urine creatinine measurement (mass/volume)Ordered By: Floyd Guardado on 12-30-2023 Creatinine (U) [Mass/Vol] 61.10 mg/dL NO RANGE EST. [facility] Urine protein/creatinine mas s ratioOrdered By: Flody Guardado on 12-30-2023 Protein/Creatinine (U) [Mass ratio] 1851 mg/g CRE 0-200 [facility] Whole blood hemoglobin A1c/t otal hemoglobin ratio (mass fraction)Ordered By: Floyd Guardado on 12-30-2023 HbA1c (Bld) [Mass fraction] 5.2 % 3.8-5.6 [facility] Comment on above: Normal < 5.7 % Predi abetic 5.7 - 6.4 % Diabetic >or= 6.5 % Please note range changes. 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 INDICATION: Initial treatment strategy. TECHNIQUE: Radiotracer was administered IV followed about 60 minutes later by PET imaging from eyes to proximal thighs. Free breathing, low dose CT of the same body region was acquired without IV contrast for attenuation correction and anatomic localization. * CT Dose-Length Product (DLP): 623 mGy*cm * CT Dose Reduction Employed: Yes * Blood glucose (mg/dL): Not assessed * Dose (mCi): 19.8 * Radiotracer: [id number] COMPARISON: No previous FDG PET/CT available CORRELATION: CT abdomen/pelvis 10/13/2023 RESULTS: REFERENCES: SUV reference values: * Blood pool (descending aorta) activity: SUVmax 2.3 * Background liver activity: SUVmax 2.8; SUVmean 2.0 Highway Safety Engineer (topogram) images: No additional findings. Notes and limitations: * Standardized uptake values (SUVs) are normalized to patient body weight and indicate the highest activity concentration (SUVmax) at a given site of pathology but can be variable and are not absolute. * Physiologic/non-neoplast ic uptake is common in the brain, extraocular muscles, oral cavity, tonsils, salivary glands, vocal cords, myocardium, liver, GI tract, urinary tract, and bone marrow among others. Certain regions and organ systems can have more intense uptake, which could confound or obscure some pathology. * Unenhanced imaging is limited for the evaluation of some pathology and the acquired CT was not designed to produce, and cannot replace, diagnostic CT scan quality. * PET-CT is often not sensitive for pulmonary nodules less than 8 mm. HEAD AND NECK: Head (imaged): No abnormal uptake. Neck and Lymph Nodes: No abnormal uptake. Thyroid: No abnormal uptake. CHEST: Lungs and Airways: No abnormal uptake. Pleura and Pericardium: No abnormal uptake. Cardiovascular: No abnormal uptake. Mediastinum and Lymph Nodes: No abnormal uptake. Chest Wall: No abnormal uptake. Right chest wall port with tip terminating in the mid SVC. ABDOMEN AND PELVIS: Hepatobiliary: No abnormal uptake. Spleen: No abnormal uptake. Pancreas: No abnormal uptake. Adrenals: No abnormal uptake. Urinary Tract: No abnormal uptake. Simple cysts. 7 mm left lower pole renal calculus. No hydronephrosis. GI Tract: No abnormal uptake. No dilated bowel. Small hiatal hernia. Peritoneum: No abnormal uptake. Vasculature: No abnormal uptake. Retroperitoneum and Lymph Nodes: There is a bulky retroperitoneal lymphadenopathy which demonstrates mild to moderate FDG avidity such as: * 2.4 cm right periaortic lymph node, SUV max 3.3 (3:231) * 1.6 cm right periaortic lymph node, SUV max 2.6 (3:223) * 3.3 cm centrally necrotic right para-aortic lymph node, SUV max 4.3 (3:242) * 1.4 cm left periaortic lymph node, SUV max 2.7 (3:221) Pelvis: Increased opacity uptake noted along the right anterior pelvic soft tissues and extending through the right inguinal crease and noted throughout the scrotum, likely reactive given recent radical orchiectomy. MUSCULOSKELETAL: Osseous: Bilateral L5 pars defects. There is 2.0 cm focal area of uptake involving the spinous process of the L3 vertebral body with lytic changes on CT associated with soft tissue component, SUV max 6.2 (3: 2:30). Soft Tissues: No abnormal uptake. IMPRESSION: HEAD/NECK: * No FDG avid neoplastic process. CHEST: * No FDG avid neoplastic process. ABDOMEN/PELVIS: * FDG avid bulky retroperitoneal lymphadenopathy as detailed suspicious for metastatic disease. MUSCULOSKELETAL: * FDG avid lytic lesion involving the spinous processes of the L3 vertebral body, suspicious for metastasis. Operations Staff Specialist Security: PSCB Transcribe Date/Time: Dec 15 2023 9:45A Dictated by : DONN HULL MD This examination was interpreted and the report reviewed and electronically signed by: CHRISTIE JUNG MD on Dec 15 2023 2:03PM EST [id number] Normal [facility] Basophil percentageOrdered B y: Adelina Valderrama on 10-15-2023 Basophil percentage 3.9 mg/dL 2.5-4.9 [facility] Chloride [Moles/Vol] 105 mmol/L 98-107 [facility] Glucose [Mass/Vol] 107 mg/dL 74-106 [facility] Comment on above: Fasting Glucose resu lt from 100 to 125 mg/dL suggests IMPAIRED HOMEOSTASIS per A.D.A. criteria. Potassium [Moles/Vol] 4.0 mmol/L 3.5-5.1 [facility] [place] Sodium [Moles/Vol] 140 mmol/L 136-145 [facility] WBC (Bld) [#/Vol] 3.7 10*3/uL 4.4-11.0 [facility] Blood erythrocytes count (nu mber/volume)Ordered By: Adelina Valderrama on 10-15-2023 RBC (Bld) [#/Vol] 2.71 10*6/uL 4.6-6.2 [facility] Blood hemoglobin measurement (mass/volume)Ordered By: Adelina Valderrama on 10-15-2023 Hemoglobin (Bld) [Mass/Vol] 8.7 g/dL 13.0-16.5 [facility] Blood manual differential co mment interpretation (narrative result)Ordered By: Adelina Valderrama on 10-15-2023 Manual differential comment Augusto (Bld) [Interp] SCANNED [facility] Comment on above: 2+ ANISOCYTOSIS1+ UT CROCYTOSIS1+ MACROCYTOSIS Blood platelet mean volumeOr dered By: Adelina Valderrama on 10-15-2023 Platelet mean volume (Bld) [Entitic vol] 8.8 fL 6.2-12.0 [facility] Determination of erythrocyte mean corpuscular volume (MCV)Ordered By: Adelina Valderrama on 10-15-2023 MCV (RBC) [Entitic vol] 105.9 fL 80-94 [facility] Hematocrit Auto (Bld) [Volum e fraction]Ordered By: Adelnia Valderrama on 10-15-2023 Hematocrit (Bld) [Volume fraction] 28.7 % 40-54 [facility] Laboratory - Chemistry and C hemistry - challengeOrdered By: Adelina Valderrama on 10-15-2023 CO2 [Moles/Vol] 26.0 mmol/L 21.0-32.0 [facility] Urea nitrogen/Creatinine [Mass ratio] 11.8 mg/mg 10-20 [facility] Laboratory - Hematology and Cell countsOrdered By: Adelina Valderrama on 10-15-2023 Erythrocyte distribution width (RBC) [Entitic vol] 100.6 fL 35.1-43.9 [facility] Erythrocyte distribution width (RBC) [Ratio] 27.1 % 11.6-14.6 [facility] MCH (RBC) [Entitic mass] 32.1 pg 27.0-32.0 [facility] MCHC Auto (RBC) [Mass/Vol]Or dered By: Adelina Valderrama on 10-15-2023 MCHC (RBC) [Mass/Vol] 30.3 g/dL 32-36 [facility] [place] No Panel InformationOrdered By: Adelina Valderrama on 10-15-2023 Estimated GFR (MDRD) Amer 36 mL/min >60 [facility] Comment on above: GFR Calc Estimated GFR (MDRD) Non-Af Amer 30 mL/min >60 [facility] Comment on above: Non- GFR Calc Parathyroid Hormone (Intact) 61.3 pg/mL 18.4-80.1 [facility] Vitamin D 25-Hydroxy 41.4 ng/mL [facility] Comment on above: Vitamin D 25(OH) Sta tus Range Deficiency <20 ng/mL (50nmol/L) Insufficiency 20 - 30 ng/mL (50 - 75 nmol/L) Sufficiency 30 - 100 ng/mL (75 - 250 nmol/L) Toxicity >100 ng/mL (>250 nmol/L) Platelets bldOrdered By: Terry Valderrama on 10-15-2023 Platelets (Bld) [#/Vol] 200 10*3/uL 150-450 [facility] Serum or plasma albumin carl urement (mass/volume)Ordered By: Adelina Valderrama on 10-15-2023 Albumin [Mass/Vol] 3.6 g/dL 3.2-5.0 [facility] Serum or plasma calcium carl urement (mass/volume)Ordered By: Adelina Valderrama on 10-15-2023 Calcium [Mass/Vol] 9.4 mg/dL 8.5-10.1 [facility] Serum or plasma creatinine m easurement (mass/volume)Ordered By: Adelina Valderrama on 10-15-2023 Creatinine [Mass/Vol] 2.62 mg/dL 0.70-1.30 [facility] [place] Comment on above: The validity of the calculated GFR & GFRAA in patients over 70 years has not been determined. Clinical correlation is essential. Serum or plasma urea nitroge n measurement (mass/volume)Ordered By: Adelina Valderrama on 10-15-2023 Urea nitrogen [Mass/Vol] 31 mg/dL 7-18 [facility] Urine creatinine measurement (mass/volume)Ordered By: Adelina Valderrama on 10-15-2023 Creatinine (U) [Mass/Vol] 44.00 mg/dL NO RANGE EST. [facility] Urine protein measurement (m ass/volume)Ordered By: Adelina Valderrama on 10-15-2023 Protein (U) [Mass/Vol] 19.6 mg/dL 0.0-11.8 [facility] Urine protein/creatinine mas s ratioOrdered By: Adelina Valderrama on 10-15-2023 Protein/Creatinine (U) [Mass ratio] 445 mg/g CRE 0-200 [facility] Basic metabolic 2000 panelon 10-13-2023 Anion gap [Moles/Vol] 11 mmol/L 9 - 18 mmol/L [facility] Calcium [Mass/Vol] 10.6 mg/dL High 8.5 - 10. 2 mg/dL [facility] Chloride [Moles/Vol] 102 mmol/L 97 - 10 5 mmol/L [facility] CO2 [Moles/Vol] 26 mmol/L 22 - 30 mmol/L [facility] Creatinine [Mass/Vol] 2.49 mg/dL High 0.73 - 1.22 mg/dL [facility] Estimated Glomerular Filtration Rate 34 mL/min/1.73m Low >=60 mL/min/1.73m [facility] Glucose [Mass/Vol] 97 mg/dL 74 - 99 mg/dL [facility] Potassium [Moles/Vol] 3.8 mmol/L 3.7 - 5.1 mmol/L [facility] Sodium [Moles/Vol] 139 mmol/L 136 - 144 mmol/L [facility] Urea nitrogen [Mass/Vol] 33 mg/dL High 9 - 24 mg/dL [facility] Absolute lymphocyte countOrd ered By: Floyd Guardado on 10-02-2023 Lymphocytes Auto (Unsp spec) [#/Vol] 0.66 10*3/uL 0.83-4.51 [facility] Basophil percentageOrdered B y: Floyd Guardado on 10-02-2023 Basophil percentage Not Reportable [facility] Basophil percentage 3 % 0-5 [facility] Basophil percentage 2.6 mg/dL 2.5-4.9 [facility] Bilirubin [Mass/Vol] 0.20 mg/dL 0.20-1.00 [facility] Comment on above: For patients on eltr ombopag therapy, use of Dimension Oolitic TBIL is not recommended. Chloride [Moles/Vol] 106 mmol/L 98-107 [facility] Cholesterol [Mass/Vol] 116 mg/dL <200 [facility] Comment on above: <200 mg/dL Desirable 200-240 mg/dL Borderline >240 mg/dL High Risk Glucose [Mass/Vol] 99 mg/dL 74-106 [facility] Neutrophils (Bld) [#/Vol] 3.8 10*3/uL 2.0-7.7 [facility] Potassium [Moles/Vol] 3.4 mmol/L 3.5-5.1 [facility] [place] Protein [Mass/Vol] 6.9 g/dL 6.4-8.2 [facility] Sodium [Moles/Vol] 141 mmol/L 136-145 [facility] Triglyceride [Mass/Vol] 198 mg/dL <199 [facility] Comment on above: The drugs N-Acetylcy steine and Metamizole may falsely depress this assay.Serum Triglycerides Reference Interval Normal <150 mg/dL Borderline high 150 - 199 mg/dL High 200 - 499 mg/dL Very High > or = 500 mg/dL WBC (Bld) [#/Vol] 6.0 10*3/uL 4.4-11.0 [facility] Blood band neutrophil count as percentage of total leukocytesOrdered By: Floyd Guardado on 10-02-2023 Band form neutrophils/100 WBC (Bld) 13 % 0-5 [facility] Blood blasts/100 leukocytesO rdered By: Floyd Guardado on 10-02-2023 Blasts/100 WBC (Bld) 5 % 0-0 [facility] Comment on above: Previous reported re sult: 5 %Edited by: MASOUD on 10/02/23:1307 AMENDED REPORT 10/02/23 1307 BLAST previously reported as: 5 *H % Blood erythrocytes count (nu mber/volume)Ordered By: Floyd Guardado on 10-02-2023 RBC (Bld) [#/Vol] 2.67 10*6/uL 4.6-6.2 [facility] Blood hemoglobin measurement (mass/volume)Ordered By: Floyd Guardado on 10-02-2023 Hemoglobin (Bld) [Mass/Vol] 8.1 g/dL 13.0-16.5 [facility] Blood lymphocytes/100 leukoc ytesOrdered By: Floyd Guardado on 10-02-2023 Lymphocytes/100 WBC (Bld) 11 % 19-41 [facility] Blood metamyelocytes/100 simon kocytesOrdered By: Floyd Guardado on 10-02-2023 Metamyelocytes/100 WBC (Bld) 3 % 0-1 [facility] Blood monocytes/100 leukocyt esOrdered By: Floyd Guardado on 10-02-2023 Monocytes/100 WBC (Bld) 3 % 0-10 [facility] Blood platelet adequacy dete ction by light microscopyOrdered By: Floyd Guardado on 10-02-2023 Platelets LM Ql (Bld) ADEQUATE ADEQ [facility] [place] Blood platelet mean volumeOr dered By: Floyd Guardado on 10-02-2023 Platelet mean volume (Bld) [Entitic vol] 10.3 fL 6.2-12.0 [facility] Blood promyelocytes/100 leuk ocytesOrdered By: Floyd Guardado on 10-02-2023 Promyelocytes/100 WBC (Bld) 2 % 0-0 [facility] Blood segmented neutrophils/ 100 leukocytesOrdered By: Floyd Guardado on 10-02-2023 Segmented neutrophils/100 WBC (Bld) 51 % 47-70 [facility] Determination of erythrocyte mean corpuscular volume (MCV)Ordered By: Floyd Guardado on 10-02-2023 MCV (RBC) [Entitic vol] 94.8 fL 80-94 [facility] Hematocrit Auto (Bld) [Volum e fraction]Ordered By: Floyd Guardado on 10-02-2023 Hematocrit (Bld) [Volume fraction] 25.3 % 40-54 [facility] Laboratory - Chemistry and C hemistry - challengeOrdered By: Floyd Guardado on 10-02-2023 ALP [Catalytic activity/Vol] 176 U/L 45-117 [facility] ALT [Catalytic activity/Vol] 43 U/L 16-61 [facility] CO2 [Moles/Vol] 27.0 mmol/L 21.0-32.0 [facility] Globulin (S) [Mass/Vol] 3.3 g/dL 2.2-4.2 [facility] Urea nitrogen/Creatinine [Mass ratio] 10.9 mg/mg 10-20 [facility] Laboratory - Hematology and Cell countsOrdered By: Floyd Guardado on 10-02-2023 Anisocytosis Ql (Bld) 2+ [facility] Erythrocyte distribution width (RBC) [Entitic vol] 64.1 fL 35.1-43.9 [facility] Erythrocyte distribution width (RBC) [Ratio] 20.6 % 11.6-14.6 [facility] MCH (RBC) [Entitic mass] 30.3 pg 27.0-32.0 [facility] Myelocytes/100 WBC (Bld) 12 % 0-0 [facility] MCHC Auto (RBC) [Mass/Vol]Or dered By: Floyd Guardado on 10-02-2023 MCHC (RBC) [Mass/Vol] 32.0 g/dL 32-36 [facility] [place] Macrocytes detectionOrdered By: Floyd Guardado on 10-02-2023 Macrocytes Ql (Bld) 1+ [facility] No Panel InformationOrdered By: Floyd Guardado on 10-02-2023 Estimated GFR (MDRD) Amer 41 mL/min >60 [facility] Comment on above: GFR Calc Estimated GFR (MDRD) Non-Af Amer 34 mL/min >60 [facility] Comment on above: Non- GFR Calc Urine Microalbumin/Creatinine Ratio 368.3 mg/g CRE <30 [facility] Vitamin D 25-Hydroxy 56.2 ng/mL [facility] Comment on above: Vitamin D 25(OH) Sta tus Range Deficiency <20 ng/mL (50nmol/L) Insufficiency 20 - 30 ng/mL (50 - 75 nmol/L) Sufficiency 30 - 100 ng/mL (75 - 250 nmol/L) Toxicity >100 ng/mL (>250 nmol/L) Platelets bldOrdered By: Omid Guardado on 10-02-2023 Platelets (Bld) [#/Vol] 102 10*3/uL 150-450 [facility] Review by pathologistOrdered By: Floyd Guardado on 10-02-2023 Pathologist review Augusto (Unsp spec) [Interp] Kera hilton [facility] Pathologist review Augusto (Unsp spec) [Interp] Reviewed [facility] Comment on above: Previous reported re sult: Kera hilton Edited by: RGOOD on 10/06/23:0947Macrocytic anemia with Anisopoikilocytosis.Mild Thrombocytopenia.Clinical correlation suggested.Jacky Muñiz D.O. 10/06/23 AMENDED REPORT 10/06/23 0947 PATH REV previously reported as: Kera hilton Serum or plasma albumin carl urement (mass/volume)Ordered By: Floyd Guardado on 10-02-2023 Albumin [Mass/Vol] 3.6 g/dL 3.2-5.0 [facility] Serum or plasma albumin/glob ulin mass ratioOrdered By: Floyd Guardado on 10-02-2023 Albumin/Globulin [Mass ratio] 1.1 {ratio} 0.9-2.4 [facility] Serum or plasma calcium carl urement (mass/volume)Ordered By: Floyd Guardado on 10-02-2023 Calcium [Mass/Vol] 9.4 mg/dL 8.5-10.1 [facility] Serum or plasma cholesterol in HDL measurement (mass/volume)Ordered By: Floyd Guardado on 10-02-2023 Cholesterol in HDL [Mass/Vol] 43 mg/dL >40 [facility] Comment on above: The drugs N-Acetylcy steine and Metamizole may falsely depress this assay. Reference Range HDL <40 mg/dL Low HDL Cholesterol HDL >or= 60 mg/dL High HDL Cholesterol Serum or plasma cholesterol in VLDL measurement (mass/volume)Ordered By: Floyd Guardado on 10-02-2023 Cholesterol in VLDL [Mass/Vol] 40 mg/dL 5-40 [facility] Serum or plasma creatinine m easurement (mass/volume)Ordered By: Floyd uGardado on 10-02-2023 Creatinine [Mass/Vol] 2.38 mg/dL 0.70-1.30 [facility] [place] Comment on above: The validity of the calculated GFR & GFRAA in patients over 70 years has not been determined. Clinical correlation is essential. Serum or plasma low density lipoprotein (LDL) cholesterol measurement (mass/volume)Ordered By: Floyd Guardado on 10-02-2023 Cholesterol in LDL [Mass/Vol] 33 mg/dL 0-130 [facility] Serum or plasma urea nitroge n measurement (mass/volume)Ordered By: Floyd Guardado on 10-02-2023 Urea nitrogen [Mass/Vol] 26 mg/dL 7-18 [facility] Thin prep Papanicolaou smear with manual screeningOrdered By: Floyd Guardado on 10-02-2023 Thin prep Papanicolaou smear with manual screening 1+ [facility] Thin prep Papanicolaou smear with manual screening 24 U/L 15-37 [facility] Thin prep Papanicolaou smear with manual screening 8 5-15 [facility] Thin prep Papanicolaou smear with manual screening 221.0 mg/L NO RANGE EST. [facility] Total cell countOrdered By: Floyd Guardado on 10-02-2023 Cells counted Molgen (Bld/Tiss) [#] 100 MANUAL DIFF [facility] Urine creatinine measurement (mass/volume)Ordered By: Floyd Guardado on 10-02-2023 Creatinine (U) [Mass/Vol] 60.00 mg/dL NO RANGE EST. [facility] Whole blood hemoglobin A1c/t otal hemoglobin ratio (mass fraction)Ordered By: Floyd Guardado on 10-02-2023 HbA1c (Bld) [Mass fraction] 5.3 % 3.8-5.6 [facility] Comment on above: Normal < 5.7 % Predi abetic 5.7 - 6.4 % Diabetic >or= 6.5 % Please note range changes. Basic metabolic 2000 panelon 09-29-2023 Anion gap [Moles/Vol] 11 mmol/L 9 - 18 mmol/L [facility] Calcium [Mass/Vol] 9.8 mg/dL 8.5 - 10. 2 mg/dL [facility] Chloride [Moles/Vol] 103 mmol/L 97 - 10 5 mmol/L [facility] CO2 [Moles/Vol] 23 mmol/L 22 - 30 mmol/L [facility] Creatinine [Mass/Vol] 2.10 mg/dL High 0.73 - 1.22 mg/dL [facility] Estimated Glomerular Filtration Rate 42 mL/min/1.73m Low >=60 mL/min/1.73m [facility] Glucose [Mass/Vol] 95 mg/dL 74 - 99 mg/dL [facility] Potassium [Moles/Vol] 3.5 mmol/L Low 3.7 - 5.1 mmol/L [facility] Sodium [Moles/Vol] 137 mmol/L 136 - 144 mmol/L [facility] Urea nitrogen [Mass/Vol] 31 mg/dL High 9 - 24 mg/dL [facility] CBC W Auto Differential pane l (Bld)on 09-29-2023 Anisocytosis Ql (Bld) Present [facility] Basophils (Bld) [#/Vol] 0.05 10*3/uL <0.11 k/uL [facility] Basophils/100 WBC (Bld) 5.0 % [facility] Dacrocytes LM Ql (Bld) Few Cl [facility] Differential cell count method Nom (Bld) Manual [facility] Eosinophils (Bld) [#/Vol] 0.01 10*3/uL <0.46 k/uL [facility] Eosinophils/100 WBC (Bld) 1.0 % [facility] Erythrocyte distribution width (RBC) [Ratio] 18.9 % High 11.5 - 15.0 % [facility] Hematocrit (Bld) [Volume fraction] 21.8 % Low 39.0 - 51.0 % [facility] Hemoglobin (Bld) [Mass/Vol] 7.5 g/dL Low 13.0 - 17.0 g/dL [facility] Lymphocytes (Bld) [#/Vol] 0.29 10*3/uL Low 1.00 - 4.00 k/uL [facility] Lymphocytes/100 WBC (Bld) 28.0 % [facility] MCH (RBC) [Entitic mass] 30.6 pg 26.0 - 34.0 pg [facility] MCHC (RBC) [Mass/Vol] 34.4 g/dL 30.5 - 36.0 g/dL [facility] MCV (RBC) [Entitic vol] 89.0 fL 80.0 - 100.0 fL [facility] [place] % 3.0 % [facility] Monocytes (Bld) [#/Vol] 0.15 10*3/uL <0.87 k/uL [facility] Monocytes/100 WBC (Bld) 15.0 % [facility] Myelo % 2.0 % [facility] Neutrophils (Bld) [#/Vol] 0.47 10*3/uL Low 1.45 - 7.50 k/uL [facility] Neutrophils/100 WBC (Bld) 46.0 % [facility] Nucleated RBC (Bld) [#/Vol] 0.05 10*3/uL High <0.01 k/uL [facility] Nucleated RBC/100 WBC (Bld) [Ratio] 5.0 /100 WBC [facility] Ovalocytes LM Ql (Bld) Few Cl [facility] Platelet mean volume (Bld) [Entitic vol] 10.4 fL 9.0 - 12.7 fL [facility] Platelets (Bld) [#/Vol] 36 10*3/uL Low 150 - 400 k/uL [facility] Platelets Estimate (Bld) [#/Vol] Decreased [facility] Polychromasia LM Ql (Bld) Slight [facility] RBC (Bld) [#/Vol] 2.45 10*6/uL Low 4.20 - 6.0 0 m/uL [facility] Red Cell Morph Reviewed: see result s of individual morphologies [facility] WBC (Bld) [#/Vol] 1.02 10*3/uL Low 3.70 - 11. 00 k/uL [facility] WBC Left Shift Ql (Bld) Present [facility] CBC W Auto Differential pane l (Bld)on 09-26-2023 Anisocytosis Ql (Bld) Present [facility] Basophils (Bld) [#/Vol] 0.01 10*3/uL <0.11 k/uL [facility] Basophils/100 WBC (Bld) 1.0 % [facility] Differential cell count method Nom (Bld) Manual [facility] Eosinophils (Bld) [#/Vol] 0.01 10*3/uL <0.46 k/uL [facility] Eosinophils/100 WBC (Bld) 1.0 % [facility] Erythrocyte distribution width (RBC) [Ratio] 21.5 % High 11.5 - 15.0 % [facility] Hematocrit (Bld) [Volume fraction] 20.6 % Low 39.0 - 51.0 % [facility] Hemoglobin (Bld) [Mass/Vol] 6.8 g/dL Low 13.0 - 17.0 g/dL [facility] Lymphocytes (Bld) [#/Vol] 0.19 10*3/uL Low 1.00 - 4.00 k/uL [facility] Lymphocytes/100 WBC (Bld) 20.0 % [facility] MCH (RBC) [Entitic mass] 30.2 pg 26.0 - 34.0 pg [facility] MCHC (RBC) [Mass/Vol] 33.0 g/dL 30.5 - 36.0 g/dL [facility] MCV (RBC) [Entitic vol] 91.6 fL 80.0 - 100.0 fL [facility] Monocytes (Bld) [#/Vol] 0.03 10*3/uL <0.87 k/uL [facility] Monocytes/100 WBC (Bld) 3.0 % [facility] Myelo % 1.0 % [facility] [facility] (Bld) [#/Vol] 0.72 10*3/uL Low 1.45 - 7.50 k/uL [facility] Neutrophils/100 WBC (Bld) 74.0 % [facility] Nucleated RBC (Bld) [#/Vol] <0.01 k/uL [facility] Nucleated RBC/100 WBC (Bld) [Ratio] 0.0 /100 WBC [facility] Ovalocytes LM Ql (Bld) Few Cl [facility] Platelet mean volume (Bld) [Entitic vol] 8.7 fL Low 9.0 - 12.7 fL [facility] Platelets (Bld) [#/Vol] 59 10*3/uL Low 150 - 400 k/uL [facility] Platelets Estimate (Bld) [#/Vol] Decreased [facility] RBC (Bld) [#/Vol] 2.25 10*6/uL Low 4.20 - 6.0 0 m/uL [facility] Red Cell Morph Reviewed: see result s of individual morphologies [facility] Spherocytes Few [facility] WBC (Bld) [#/Vol] 0.97 10*3/uL Low 3.70 - 11. 00 k/uL [facility] Basic metabolic 2000 panelon 09-22-2023 Anion gap [Moles/Vol] 13 mmol/L 9 - 18 mmol/L [facility] Calcium [Mass/Vol] 9.5 mg/dL 8.5 - 10. 2 mg/dL [facility] Chloride [Moles/Vol] 105 mmol/L 97 - 10 5 mmol/L [facility] CO2 [Moles/Vol] 22 mmol/L 22 - 30 mmol/L [facility] Creatinine [Mass/Vol] 2.00 mg/dL High 0.73 - 1.22 mg/dL [facility] Estimated Glomerular Filtration Rate 44 mL/min/1.73m Low >=60 mL/min/1.73m [facility] Glucose [Mass/Vol] 101 mg/dL High 74 - 99 mg/dL [facility] Potassium [Moles/Vol] 3.7 mmol/L 3.7 - 5.1 mmol/L [facility] Sodium [Moles/Vol] 140 mmol/L 136 - 144 mmol/L [facility] Urea nitrogen [Mass/Vol] 51 mg/dL High 9 - 24 mg/dL [facility] CBC W Auto Differential pane l (Bld)on 09-22-2023 Anisocytosis Ql (Bld) Present [facility] Basophils (Bld) [#/Vol] 0.00 10*3/uL <0.11 k/uL [facility] Basophils/100 WBC (Bld) 0.0 % [facility] Dacrocytes LM Ql (Bld) Few [facility] Differential cell count method Nom (Bld) Manual [facility] Eosinophils (Bld) [#/Vol] 0.00 10*3/uL <0.46 k/uL [facility] Eosinophils/100 WBC (Bld) 0.0 % [facility] Erythrocyte distribution width (RBC) [Ratio] 23.3 % High 11.5 - 15.0 % [facility] Hematocrit (Bld) [Volume fraction] 22.5 % Low 39.0 - 51.0 % [facility] Hemoglobin (Bld) [Mass/Vol] 7.7 g/dL Low 13.0 - 17.0 g/dL [facility] Lymphocytes (Bld) [#/Vol] 1.47 10*3/uL 1.00 - 4.00 k/uL [facility] Lymphocytes/100 WBC (Bld) 5.0 % [facility] MCH (RBC) [Entitic mass] 30.7 pg 26.0 - 34.0 pg [facility] MCHC (RBC) [Mass/Vol] 34.2 g/dL 30.5 - 36.0 g/dL [facility] MCV (RBC) [Entitic vol] 89.6 fL 80.0 - 100.0 fL [facility] Monocytes (Bld) [#/Vol] 0.00 10*3/uL <0.87 k/uL [facility] Monocytes/100 WBC (Bld) 0.0 % [facility] Neutrophils (Bld) [#/Vol] 28.01 10*3/uL High 1.45 - 7.50 k/uL [facility] Neutrophils/100 WBC (Bld) 95.0 % [facility] Nucleated RBC (Bld) [#/Vol] <0.01 k/uL [facility] Nucleated RBC/100 WBC (Bld) [Ratio] 0.0 /100 WBC [facility] Ovalocytes LM Ql (Bld) Few [facility] Platelet mean volume (Bld) [Entitic vol] 8.4 fL Low 9.0 - 12.7 fL [facility] Platelets (Bld) [#/Vol] 134 10*3/uL Low 150 - 400 k/uL [facility] Platelets Estimate (Bld) [#/Vol] Decreased [facility] RBC (Bld) [#/Vol] 2.51 10*6/uL Low 4.20 - 6.0 0 m/uL [facility] Red Cell Morph Reviewed: see result s of individual morphologies [facility] WBC (Bld) [#/Vol] 29.48 10*3/uL High 3.70 - 11 .00 k/uL [facility] Basophil percentageOrdered B y: Adelina Valderrama on 09-19-2023 Basophil percentage 3.0 mg/dL 2.5-4.9 [facility] Chloride [Moles/Vol] 110 mmol/L 98-107 [facility] Glucose [Mass/Vol] 198 mg/dL 74-106 [facility] Comment on above: Fasting Glucose resu lt greater than or equal to 126 mg/dL suggests DIABETES MELLITUS per A.D.A. criteria. Potassium [Moles/Vol] 4.6 mmol/L 3.5-5.1 [facility] Sodium [Moles/Vol] 140 mmol/L 136-145 [facility] WBC (Bld) [#/Vol] 10.4 10*3/uL 4.4-11.0 [facility] Blood erythrocytes count (nu mber/volume)Ordered By: Adelina Valderrama on 09-19-2023 RBC (Bld) [#/Vol] 2.88 10*6/uL 4.6-6.2 [facility] Blood hemoglobin measurement (mass/volume)Ordered By: Adelina Valderrama on 09-19-2023 Hemoglobin (Bld) [Mass/Vol] 8.6 g/dL 13.0-16.5 [facility] Blood platelet mean volumeOr dered By: Adelina Valderrama on 09-19-2023 Platelet mean volume (Bld) [Entitic vol] 8.2 fL 6.2-12.0 [facility] Determination of erythrocyte mean corpuscular volume (MCV)Ordered By: Adelina Valderrama on 09-19-2023 MCV (RBC) [Entitic vol] 94.8 fL 80-94 [facility] Hematocrit Auto (Bld) [Volum e fraction]Ordered By: Adelina Valderrama on 09-19-2023 Hematocrit (Bld) [Volume fraction] 27.3 % 40-54 [facility] Laboratory - Chemistry and C hemistry - challengeOrdered By: Adelina Valderrama on 09-19-2023 CO2 [Moles/Vol] 21.0 mmol/L 21.0-32.0 [facility] Urea nitrogen/Creatinine [Mass ratio] 21.7 mg/mg 10-20 [facility] Laboratory - Hematology and Cell countsOrdered By: Adelina Valderrama on 09-19-2023 Erythrocyte distribution width (RBC) [Entitic vol] 77.2 fL 35.1-43.9 [facility] Erythrocyte distribution width (RBC) [Ratio] 24.2 % 11.6-14.6 [facility] MCH (RBC) [Entitic mass] 29.9 pg 27.0-32.0 [facility] MCHC Auto (RBC) [Mass/Vol]Or dered By: Adelina Valderrama on 09-19-2023 MCHC (RBC) [Mass/Vol] 31.5 g/dL 32-36 [facility] No Panel InformationOrdered By: Adelina Valderrama on 09-19-2023 Estimated GFR (MDRD) Amer 41 mL/min >60 [facility] Comment on above: GFR Calc Estimated GFR (MDRD) Non-Af Amer 34 mL/min >60 [facility] Comment on above: Non- GFR Calc Parathyroid Hormone (Intact) 152.8 pg/mL 18.4-80.1 [facility] Vitamin D 25-Hydroxy 42.6 ng/mL [facility] Comment on above: Vitamin D 25(OH) Sta tus Range Deficiency <20 ng/mL (50nmol/L) Insufficiency 20 - 30 ng/mL (50 - 75 nmol/L) Sufficiency 30 - 100 ng/mL (75 - 250 nmol/L) Toxicity >100 ng/mL (>250 nmol/L) Platelets bldOrdered By: Terry Valderrama on 09-19-2023 Platelets (Bld) [#/Vol] 212 10*3/uL 150-450 [facility] Serum or plasma albumin carl urement (mass/volume)Ordered By: Adelina Valderrama on 09-19-2023 Albumin [Mass/Vol] 3.8 g/dL 3.2-5.0 [facility] Serum or plasma calcium carl urement (mass/volume)Ordered By: Adelina Valderrama on 09-19-2023 Calcium [Mass/Vol] 9.2 mg/dL 8.5-10.1 [facility] Serum or plasma creatinine m easurement (mass/volume)Ordered By: Adelina Valderrama on 09-19-2023 Creatinine [Mass/Vol] 2.35 mg/dL 0.70-1.30 [facility] Comment on above: The validity of the calculated GFR & GFRAA in patients over 70 years has not been determined. Clinical correlation is essential. Serum or plasma urea nitroge n measurement (mass/volume)Ordered By: Adelina Valderrama on 09-19-2023 Urea nitrogen [Mass/Vol] 51 mg/dL 7-18 [facility] Urine creatinine measurement (mass/volume)Ordered By: Adelina Valderrama on 09-19-2023 Creatinine (U) [Mass/Vol] 15.00 mg/dL NO RANGE EST. [facility] Urine protein measurement (m ass/volume)Ordered By: Adelina Valderrama on 09-19-2023 Protein (U) [Mass/Vol] 16.5 mg/dL 0.0-11.8 [facility] Urine protein/creatinine mas s ratioOrdered By: Adelina Valderrama on 09-19-2023 Protein/Creatinine (U) [Mass ratio] 1100 mg/g CRE 0-200 [facility] ALLIED HEALTHon 09-17-2023 ALLIED HEALTH HNO ID: [id number] Author: Fatou Monreal RT(R) Service: ? Author Type: Truck Despatcher Type: Allied Health Filed: 09/17/2023 12:48 PM Note Text: Radiology Service Progress Note PATIENT NAME: Paul Palacios DATE OF SERVICE: September 17, 2023 TIME: 12:47 PM PATIENT IDENTITY VERIFICATION COMPLETED USING TWO (2) IDENTIFIERS: Name and Date of confirmed by patient verbally. FALL SCREENING: Has the patient had 2 falls in the last year or 1 fall with injury or currently using an Ambulatory Assistive Device (Walker, Cane, Wheelchair, Crutches, etc.)? No PATIENT GENDER DATA: Male PATIENT RELEVANT IMPLANT DATA REVIEWED: Not Applicable RADIOLOGY DEPARTMENT: CT; Exam(s) Completed: Chest Abdomen Pelvis PERIPHERAL IV DATA: Not applicable SIGNED BY: Fatou Monreal RT(R) September 17, 2023 12:47 PM Normal [facility] CT ABD/PEL WO IVCONon 2022 CT ABD/PEL WO IVCON * * *Final Report* * * DATE OF EXAM: Sep 17 2023 12:52PM [facility] 0531 - CT ABD/PEL WO IVCON / PROCEDURE REASON: multiple diagnoses * * * * Physician Interpretation * * * * EXAMINATION: CT ABDOMEN AND PELVIS WITHOUT IV CONTRAST CLINICAL HISTORY: Testicular neoplasm, restaging TECHNIQUE: Non-IV contrast imaging of the abdomen and pelvis was performed using standard technique, scanning from just above the dome of the diaphragm to the symphysis pubis. Unenhanced imaging is limited for the evaluation of some intra-abdominal and pelvic pathology. MQ: CTAPWO_3 Contrast: IV: None Oral: 20 ml of Omni 240 10-25ml diluted with water CT Radiation dose: Integrated Dose-length product (DLP) for this visit = 1798.63 mGy*cm. CT Dose Reduction Employed: Automated exposure control(AEC) and iterative recon COMPARISON: 08/15/23, and others RESULT: Abdomen / Pelvis: Liver: Unremarkable. Biliary: The gallbladder is unremarkable. Spleen: No splenomegaly. Pancreas: Unremarkable. Adrenals: No mass. Kidneys: Highly lobular kidneys bilaterally with worsened bilateral hydroureteronephrosis. Lower pole stable left renal calculi. GI Tract: No bowel dilation. Normal appendix. Lymph Nodes: Bulky retroperitoneal adenopathy persists appearing improved relative the prior study. Largest conglomerate periaortic distribution mid abdomen measures 9.3 x 2.8 cm relative to 12.2 x 4.2 cm on the prior study. Minimal coarse dystrophic calcium is present within multiple lesions. Spherical deposit near the aortic bifurcation measures 4.0 x 3.0 cm previously measuring 5.2 x 3.5 cm. Mesentery/peritoneum: No ascites. Retroperitoneum: No mass. Vasculature: Significant mass effect upon the inferior vena cava. Pelvis: No mass or ascites. Bones/Soft Tissues: No acute abnormality. Lower thorax: Unremarkable. Highway Safety Engineer (topogram) images: Unremarkable. IMPRESSION: Improved bulky retroperitoneal adenopathy in keeping with treatment response. Slightly worsened bilateral hydroureteronephrosis. Significant mass effect upon the inferior vena cava remains. EXAMINATION: CHEST CT WITHOUT CONTRAST CLINICAL HISTORY: testicular cancer Technique: Spiral CT acquisition of the chest from the thoracic inlet to the upper abdomen without contrast. MQ: CTCWO_5 CT Dose-Length Product: 1798.63 mGy*cm CT Dose Reduction Employed: Automated exposure control(AEC) and iterative recon Comparison: Type of study and date/time RESULT: Limitations: None. Lines, tubes, and devices: Right Port-A-Cath device terminating within the SVC. Lung parenchyma and airways: No consolidation. No suspicious pulmonary nodule. The central airways are patent. Pleural space: No pleural effusion. No pleural thickening. Lower neck, lymph nodes, and mediastinum: The imaged thyroid gland is normal. No lympadenopathy in the supraclavicular, axillary, mediastinal, or hilar regions. Heart, pericardium, and thoracic vessels: The thoracic aorta and main pulmonary artery are normal in caliber. The cardiac chambers are normal in size. No coronary artery atherosclerotic calcifications are noted, although the study is not optimized for coronary assessment. No pericardial effusion or thickening. Bones and soft tissues: No destructive bone lesion. Chest wall is unremarkable. Upper abdomen: No abnormality in the imaged upper abdomen. IMPRESSION: No CT evidence for intrathoracic disease progression. Operations Staff Specialist Security: AGUSTIAN Transcribe Date/Time: Sep 18 2023 2:13P Dictated by : JESSICA CASTRO MD This examination was interpreted and the report reviewed and electronically signed by: JESSICA CASTRO MD on Sep 18 2023 2:20PM EST [id number] Normal [facility] CT CHEST WO IVCONon 09-17-20 CT CHEST WO IVCON * * *Final Report* * * DATE OF EXAM: Sep 17 2023 12:52PM [facility] 0541 - CT CHEST WO IVCON / PROCEDURE REASON: multiple diagnoses * * * * Physician Interpretation * * * * EXAMINATION: CT ABDOMEN AND PELVIS WITHOUT IV CONTRAST CLINICAL HISTORY: Testicular neoplasm, restaging TECHNIQUE: Non-IV contrast imaging of the abdomen and pelvis was performed using standard technique, scanning from just above the dome of the diaphragm to the symphysis pubis. Unenhanced imaging is limited for the evaluation of some intra-abdominal and pelvic pathology. MQ: CTAPWO_3 Contrast: IV: None Oral: 20 ml of Omni 240 10-25ml diluted with water CT Radiation dose: Integrated Dose-length product (DLP) for this visit = 1798.63 mGy*cm. CT Dose Reduction Employed: Automated exposure control(AEC) and iterative recon COMPARISON: 08/15/23, and others RESULT: Abdomen / Pelvis: Liver: Unremarkable. Biliary: The gallbladder is unremarkable. Spleen: No splenomegaly. Pancreas: Unremarkable. Adrenals: No mass. Kidneys: Highly lobular kidneys bilaterally with worsened bilateral hydroureteronephrosis. Lower pole stable left renal calculi. GI Tract: No bowel dilation. Normal appendix. Lymph Nodes: Bulky retroperitoneal adenopathy persists appearing improved relative the prior study. Largest conglomerate periaortic distribution mid abdomen measures 9.3 x 2.8 cm relative to 12.2 x 4.2 cm on the prior study. Minimal coarse dystrophic calcium is present within multiple lesions. Spherical deposit near the aortic bifurcation measures 4.0 x 3.0 cm previously measuring 5.2 x 3.5 cm. Mesentery/peritoneum: No ascites. Retroperitoneum: No mass. Vasculature: Significant mass effect upon the inferior vena cava. Pelvis: No mass or ascites. Bones/Soft Tissues: No acute abnormality. Lower thorax: Unremarkable. Highway Safety Engineer (topogram) images: Unremarkable. IMPRESSION: Improved bulky retroperitoneal adenopathy in keeping with treatment response. Slightly worsened bilateral hydroureteronephrosis. Significant mass effect upon the inferior vena cava remains. EXAMINATION: CHEST CT WITHOUT CONTRAST CLINICAL HISTORY: testicular cancer Technique: Spiral CT acquisition of the chest from the thoracic inlet to the upper abdomen without contrast. MQ: CTCWO_5 CT Dose-Length Product: 1798.63 mGy*cm CT Dose Reduction Employed: Automated exposure control(AEC) and iterative recon Comparison: Type of study and date/time RESULT: Limitations: None. Lines, tubes, and devices: Right Port-A-Cath device terminating within the SVC. Lung parenchyma and airways: No consolidation. No suspicious pulmonary nodule. The central airways are patent. Pleural space: No pleural effusion. No pleural thickening. Lower neck, lymph nodes, and mediastinum: The imaged thyroid gland is normal. No lympadenopathy in the supraclavicular, axillary, mediastinal, or hilar regions. Heart, pericardium, and thoracic vessels: The thoracic aorta and main pulmonary artery are normal in caliber. The cardiac chambers are normal in size. No coronary artery atherosclerotic calcifications are noted, although the study is not optimized for coronary assessment. No pericardial effusion or thickening. Bones and soft tissues: No destructive bone lesion. Chest wall is unremarkable. Upper abdomen: No abnormality in the imaged upper abdomen. IMPRESSION: No CT evidence for intrathoracic disease progression. Operations Staff Specialist Security: AGUSTINA Transcribe Date/Time: Sep 18 2023 2:13P Dictated by : JESSICA CASTRO MD This examination was interpreted and the report reviewed and electronically signed by: JESSICA CASTRO MD on Sep 18 2023 2:20PM EST [id number] Normal [facility] No Panel Informationon 09-17 [facility] CBC W Auto Differential pane l (Bld)on 09-16-2023 Anisocytosis Ql (Bld) Present [facility] Basophils (Bld) [#/Vol] 0.22 10*3/uL High <0.11 k/uL [facility] Basophils/100 WBC (Bld) 2.0 % [facility] Dacrocytes LM Ql (Bld) Few Cl [facility] Differential cell count method Nom (Bld) Manual [facility] Eosinophils (Bld) [#/Vol] 0.00 10*3/uL <0.46 k/uL [facility] Eosinophils/100 WBC (Bld) 0.0 % [facility] Erythrocyte distribution width (RBC) [Ratio] 24.4 % High 11.5 - 15.0 % [facility] Hematocrit (Bld) [Volume fraction] 23.5 % Low 39.0 - 51.0 % [facility] Hemoglobin (Bld) [Mass/Vol] 7.7 g/dL Low 13.0 - 17.0 g/dL [facility] Lymphocytes (Bld) [#/Vol] 0.66 10*3/uL Low 1.00 - 4.00 k/uL [facility] Lymphocytes/100 WBC (Bld) 6.0 % [facility] MCH (RBC) [Entitic mass] 29.7 pg 26.0 - 34.0 pg [facility] MCHC (RBC) [Mass/Vol] 32.8 g/dL 30.5 - 36.0 g/dL [facility] MCV (RBC) [Entitic vol] 90.7 fL 80.0 - 100.0 fL [facility] [place] % 6.0 % [facility] Monocytes (Bld) [#/Vol] 0.99 10*3/uL High <0.87 k/uL [facility] Monocytes/100 WBC (Bld) 9.0 % [facility] Myelo % 14.0 % [facility] Neutrophils (Bld) [#/Vol] 6.96 10*3/uL 1.45 - 7.50 k/uL [facility] Neutrophils/100 WBC (Bld) 63.0 % [facility] Nucleated RBC (Bld) [#/Vol] 0.44 10*3/uL High <0.01 k/uL [facility] Nucleated RBC/100 WBC (Bld) [Ratio] 4.0 /100 WBC [facility] Ovalocytes LM Ql (Bld) Few Cl [facility] Platelet mean volume (Bld) [Entitic vol] 9.3 fL 9.0 - 12.7 fL [facility] Platelets (Bld) [#/Vol] 165 10*3/uL 150 - 400 k/uL [facility] Platelets Estimate (Bld) [#/Vol] Decreased [facility] Polychromasia LM Ql (Bld) Slight [facility] RBC (Bld) [#/Vol] 2.59 10*6/uL Low 4.20 - 6.0 0 m/uL [facility] Red Cell Morph Reviewed: see result s of individual morphologies [facility] WBC (Bld) [#/Vol] 11.05 10*3/uL High 3.70 - 11 .00 k/uL [facility] WBC Left Shift Ql (Bld) Present [facility] Comprehensive metabolic 2000 panelon 09-16-2023 Albumin [Mass/Vol] 4.3 g/dL 3.9 - 4.9 g/dL [facility] ALP [Catalytic activity/Vol] 141 U/L High 38 - 113 U/L [facility] ALT [Catalytic activity/Vol] 30 U/L 10 - 54 U/L [facility] Anion gap [Moles/Vol] 13 mmol/L 9 - 18 mmol/L [facility] AST [Catalytic activity/Vol] 28 U/L 14 - 40 U/L [facility] Bilirubin [Mass/Vol] 0.3 mg/dL 0.2 - 1 .3 mg/dL [facility] Calcium [Mass/Vol] 9.9 mg/dL 8.5 - 10. 2 mg/dL [facility] Chloride [Moles/Vol] 102 mmol/L 97 - 10 5 mmol/L [facility] CO2 [Moles/Vol] 24 mmol/L 22 - 30 mmol/L [facility] Creatinine [Mass/Vol] 2.37 mg/dL High 0.73 - 1.22 mg/dL [facility] Estimated Glomerular Filtration Rate 36 mL/min/1.73m Low >=60 mL/min/1.73m [facility] Glucose [Mass/Vol] 103 mg/dL High 74 - 99 mg/dL [facility] Potassium [Moles/Vol] 3.6 mmol/L Low 3.7 - 5.1 mmol/L [facility] Protein [Mass/Vol] 6.3 g/dL 6.3 - 8.0 g/dL [facility] Sodium [Moles/Vol] 139 mmol/L 136 - 144 mmol/L [facility] Urea nitrogen [Mass/Vol] 26 mg/dL High 9 - 24 mg/dL [facility] LD LACTATE DEHYDROon 023 LDH [Catalytic activity/Vol] 414 U/L High 135 - 225 U/L [facility] MAGNESIUM BLDon 09-16-2023 Magnesium [Mass/Vol] 1.9 mg/dL 1.7 - 2 .3 mg/dL [facility] CBC W Auto Differential pane l (Bld)on 09-08-2023 Anisocytosis Ql (Bld) Present [facility] Basophils (Bld) [#/Vol] 0.10 10*3/uL <0.11 k/uL [facility] Basophils/100 WBC (Bld) 4.0 % [facility] Dacrocytes LM Ql (Bld) Few Cl [facility] Differential cell count method Nom (Bld) Manual [facility] Eosinophils (Bld) [#/Vol] 0.02 10*3/uL <0.46 k/uL [facility] Eosinophils/100 WBC (Bld) 1.0 % [facility] Erythrocyte distribution width (RBC) [Ratio] 21.0 % High 11.5 - 15.0 % [facility] Hematocrit (Bld) [Volume fraction] 24.3 % Low 39.0 - 51.0 % [facility] Hemoglobin (Bld) [Mass/Vol] 8.1 g/dL Low 13.0 - 17.0 g/dL [facility] Lymphocytes (Bld) [#/Vol] 0.41 10*3/uL Low 1.00 - 4.00 k/uL [facility] Lymphocytes/100 WBC (Bld) 17.0 % [facility] MCH (RBC) [Entitic mass] 29.3 pg 26.0 - 34.0 pg [facility] MCHC (RBC) [Mass/Vol] 33.3 g/dL 30.5 - 36.0 g/dL [facility] MCV (RBC) [Entitic vol] 88.0 fL 80.0 - 100.0 fL [facility] [place] % 3.0 % [facility] Monocytes (Bld) [#/Vol] 0.29 10*3/uL <0.87 k/uL [facility] Monocytes/100 WBC (Bld) 12.0 % [facility] Myelo % 4.0 % [facility] Neutrophils (Bld) [#/Vol] 1.35 10*3/uL Low 1.45 - 7.50 k/uL [facility] Neutrophils/100 WBC (Bld) 56.0 % [facility] Nucleated RBC (Bld) [#/Vol] <0.01 k/uL [facility] Nucleated RBC/100 WBC (Bld) [Ratio] 0.0 /100 WBC [facility] Ovalocytes LM Ql (Bld) Few Cl [facility] Platelet mean volume (Bld) [Entitic vol] 9.8 fL 9.0 - 12.7 fL [facility] Platelets (Bld) [#/Vol] 68 10*3/uL Low 150 - 400 k/uL [facility] Platelets Estimate (Bld) [#/Vol] Decreased [facility] Polychromasia LM Ql (Bld) Slight [facility] [place] % 3.0 % [facility] RBC (Bld) [#/Vol] 2.76 10*6/uL Low 4.20 - 6.0 0 m/uL [facility] Red Cell Morph Reviewed: see result s of individual morphologies [facility] WBC (Bld) [#/Vol] 2.41 10*3/uL Low 3.70 - 11. 00 k/uL [facility] WBC Left Shift [facility]Bld) [facility] 2000 panelon 09-08-2023 Albumin [Mass/Vol] 4.3 g/dL 3.9 - 4.9 g/dL [facility] ALP [Catalytic activity/Vol] 150 U/L High 38 - 113 U/L [facility] ALT [Catalytic activity/Vol] 32 U/L 10 - 54 U/L [facility] Anion gap [Moles/Vol] 13 mmol/L 9 - 18 mmol/L [facility] AST [Catalytic activity/Vol] 24 U/L 14 - 40 U/L [facility] Bilirubin [Mass/Vol] 0.3 mg/dL 0.2 - 1 .3 mg/dL [facility] Calcium [Mass/Vol] 9.9 mg/dL 8.5 - 10. 2 mg/dL [facility] Chloride [Moles/Vol] 99 mmol/L 97 - 10 5 mmol/L [facility] CO2 [Moles/Vol] 23 mmol/L 22 - 30 mmol/L [facility] Creatinine [Mass/Vol] 2.26 mg/dL High 0.73 - 1.22 mg/dL [facility] Estimated Glomerular Filtration Rate 38 mL/min/1.73m Low >=60 mL/min/1.73m [facility] Glucose [Mass/Vol] 138 mg/dL High 74 - 99 mg/dL [facility] Potassium [Moles/Vol] 3.3 mmol/L Low 3.7 - 5.1 mmol/L [facility] Protein [Mass/Vol] 6.3 g/dL 6.3 - 8.0 g/dL [facility] Sodium [Moles/Vol] 135 mmol/L Low 136 - 144 mmol/L [facility] Urea nitrogen [Mass/Vol] 25 mg/dL High 9 - 24 mg/dL [facility] Basic metabolic 2000 panelon 09-01-2023 Anion gap [Moles/Vol] 11 mmol/L 9 - 18 mmol/L [facility] Calcium [Mass/Vol] 9.0 mg/dL 8.5 - 10. 2 mg/dL [facility] Chloride [Moles/Vol] 106 mmol/L High 97 - 10 5 mmol/L [facility] CO2 [Moles/Vol] 21 mmol/L Low 22 - 30 mmol/L [facility] Creatinine [Mass/Vol] 2.05 mg/dL High 0.73 - 1.22 mg/dL [facility] Estimated Glomerular Filtration Rate 43 mL/min/1.73m Low >=60 mL/min/1.73m [facility] Glucose [Mass/Vol] 94 mg/dL 74 - 99 mg/dL [facility] Potassium [Moles/Vol] 3.6 mmol/L Low 3.7 - 5.1 mmol/L [facility] Sodium [Moles/Vol] 138 mmol/L 136 - 144 mmol/L [facility] Urea nitrogen [Mass/Vol] 58 mg/dL High 9 - 24 mg/dL [facility] CBC W Auto Differential pane l (Bld)on 09-01-2023 Anisocytosis Ql (Bld) Present [facility] [facility] (Bld) [#/Vol] 0.00 10*3/uL <0.11 k/uL [facility] Basophils/100 WBC (Bld) 0.0 % [facility] Dacrocytes LM Ql (Bld) Few Cl [facility] Differential cell count method Nom (Bld) Manual [facility] Eosinophils (Bld) [#/Vol] 0.00 10*3/uL <0.46 k/uL [facility] Eosinophils/100 WBC (Bld) 0.0 % [facility] Erythrocyte distribution width (RBC) [Ratio] 19.2 % High 11.5 - 15.0 % [facility] Hematocrit (Bld) [Volume fraction] 24.1 % Low 39.0 - 51.0 % [facility] Hemoglobin (Bld) [Mass/Vol] 8.4 g/dL Low 13.0 - 17.0 g/dL [facility] Lymphocytes (Bld) [#/Vol] 0.35 10*3/uL Low 1.00 - 4.00 k/uL [facility] Lymphocytes/100 WBC (Bld) 1.0 % [facility] MCH (RBC) [Entitic mass] 29.4 pg 26.0 - 34.0 pg [facility] MCHC (RBC) [Mass/Vol] 34.9 g/dL 30.5 - 36.0 g/dL [facility] MCV (RBC) [Entitic vol] 84.3 fL 80.0 - 100.0 fL [facility] Monocytes (Bld) [#/Vol] 0.00 10*3/uL <0.87 k/uL [facility] Monocytes/100 WBC (Bld) 0.0 % [facility] Neutrophils (Bld) [#/Vol] 34.67 10*3/uL High 1.45 - 7.50 k/uL [facility] Neutrophils/100 WBC (Bld) 99.0 % [facility] Nucleated RBC (Bld) [#/Vol] <0.01 k/uL [facility] Nucleated RBC/100 WBC (Bld) [Ratio] 0.0 /100 WBC [facility] Ovalocytes LM Ql (Bld) Few Cl [facility] Platelet mean volume (Bld) [Entitic vol] 8.1 fL Low 9.0 - 12.7 fL [facility] Platelets (Bld) [#/Vol] 221 10*3/uL 150 - 400 k/uL [facility] Platelets Estimate (Bld) [#/Vol] Adequate [facility] RBC (Bld) [#/Vol] 2.86 10*6/uL Low 4.20 - 6.0 0 m/uL [facility] Red Cell Morph Reviewed: see result s of individual morphologies [facility] WBC (Bld) [#/Vol] 35.02 10*3/uL High 3.70 - 11 .00 k/uL [facility] CBC W Auto Differential pane l (Bld)on 08-26-2023 Anisocytosis Ql (Bld) Present [facility] Basophils (Bld) [#/Vol] 0.13 10*3/uL High <0.11 k/uL [facility] Basophils/100 WBC (Bld) 1.0 % [facility] Differential cell count method Nom (Bld) Manual [facility] Eosinophils (Bld) [#/Vol] 0.13 10*3/uL <0.46 k/uL [facility] Eosinophils/100 WBC (Bld) 1.0 % [facility] Erythrocyte distribution width (RBC) [Ratio] 20.9 % High 11.5 - 15.0 % [facility] Hematocrit (Bld) [Volume fraction] 21.6 % Low 39.0 - 51.0 % [facility] Hemoglobin (Bld) [Mass/Vol] 7.2 g/dL Low 13.0 - 17.0 g/dL [facility] Lymphocytes (Bld) [#/Vol] 0.39 10*3/uL Low 1.00 - 4.00 k/uL [facility] Lymphocytes/100 WBC (Bld) 3.0 % [facility] MCH (RBC) [Entitic mass] 29.0 pg 26.0 - 34.0 pg [facility] MCHC (RBC) [Mass/Vol] 33.3 g/dL 30.5 - 36.0 g/dL [facility] MCV (RBC) [Entitic vol] 87.1 fL 80.0 - 100.0 fL [facility] [place] % 13.0 % [facility] Monocytes (Bld) [#/Vol] 0.52 10*3/uL <0.87 k/uL [facility] Monocytes/100 WBC (Bld) 4.0 % [facility] Myelo % 10.0 % [facility] Neutrophils (Bld) [#/Vol] 8.79 10*3/uL High 1.45 - 7.50 k/uL [facility] Neutrophils/100 WBC (Bld) 68.0 % [facility] Nucleated RBC (Bld) [#/Vol] 0.52 10*3/uL High <0.01 k/uL [facility] Nucleated RBC/100 WBC (Bld) [Ratio] 4.0 /100 WBC [facility] Ovalocytes LM Ql (Bld) Few Cl [facility] Platelet mean volume (Bld) [Entitic vol] 9.1 fL 9.0 - 12.7 fL [facility] Platelets (Bld) [#/Vol] 213 10*3/uL 150 - 400 k/uL [facility] Platelets Estimate (Bld) [#/Vol] Adequate [facility] Polychromasia LM Ql (Bld) Slight [facility] RBC (Bld) [#/Vol] 2.48 10*6/uL Low 4.20 - 6.0 0 m/uL [facility] Red Cell Morph Reviewed: see result s of individual morphologies [facility] WBC (Bld) [#/Vol] 12.92 10*3/uL High 3.70 - 11 .00 k/uL [facility] WBC Left Shift Ql (Bld) Present [facility] Comprehensive metabolic 2000 panelon 08-25-2023 Albumin [Mass/Vol] 4.0 g/dL 3.9 - 4.9 g/dL [facility] ALP [Catalytic activity/Vol] 124 U/L High 38 - 113 U/L [facility] ALT [Catalytic activity/Vol] 26 U/L 10 - 54 U/L [facility] Anion gap [Moles/Vol] 13 mmol/L 9 - 18 mmol/L [facility] AST [Catalytic activity/Vol] 29 U/L 14 - 40 U/L [facility] Bilirubin [Mass/Vol] 0.2 mg/dL 0.2 - 1 .3 mg/dL [facility] Calcium [Mass/Vol] 10.2 mg/dL 8.5 - 10. 2 mg/dL [facility] Chloride [Moles/Vol] 103 mmol/L 97 - 10 5 mmol/L [facility] CO2 [Moles/Vol] 25 mmol/L 22 - 30 mmol/L [facility] Creatinine [Mass/Vol] 2.64 mg/dL High 0.73 - 1.22 mg/dL [facility] Estimated Glomerular Filtration Rate 32 mL/min/1.73m Low >=60 mL/min/1.73m [facility] Glucose [Mass/Vol] 160 mg/dL High 74 - 99 mg/dL [facility] Potassium [Moles/Vol] 3.8 mmol/L 3.7 - 5.1 mmol/L [facility] Protein [Mass/Vol] 6.2 g/dL Low 6.3 - 8.0 g/dL [facility] Sodium [Moles/Vol] 141 mmol/L 136 - 144 mmol/L [facility] Urea nitrogen [Mass/Vol] 24 mg/dL 9 - 24 mg/dL [facility] LD LACTATE DEHYDROon 023 LDH [Catalytic activity/Vol] 470 U/L High 135 - 225 U/L [facility] MAGNESIUM BLDon 08-25-2023 Magnesium [Mass/Vol] 1.6 mg/dL Low 1.7 - 2 .3 mg/dL [facility] CT ABD/PEL WO IVCONon 2022 [facility] ALPHA FETOPROTEIN BLon 08-01 AFP [Mass/Vol] 4.9 ng/mL <11.0 ng/mL [facility] Comprehensive metabolic 2000 panelon 08-01-2023 Albumin [Mass/Vol] 3.6 g/dL Low 3.9 - 4.9 g/dL [facility] ALP [Catalytic activity/Vol] 160 U/L High 38 - 113 U/L [facility] ALT [Catalytic activity/Vol] 24 U/L 10 - 54 U/L [facility] Anion gap [Moles/Vol] 11 mmol/L 9 - 18 mmol/L [facility] AST [Catalytic activity/Vol] 17 U/L 14 - 40 U/L [facility] Bilirubin [Mass/Vol] 0.2 mg/dL 0.2 - 1 .3 mg/dL [facility] Calcium [Mass/Vol] 9.6 mg/dL 8.5 - 10. 2 mg/dL [facility] Chloride [Moles/Vol] 107 mmol/L High 97 - 10 5 mmol/L [facility] CO2 [Moles/Vol] 23 mmol/L 22 - 30 mmol/L [facility] Creatinine [Mass/Vol] 2.06 mg/dL High 0.73 - 1.22 mg/dL [facility] Estimated Glomerular Filtration Rate 43 mL/min/1.73m Low >=60 mL/min/1.73m [facility] Glucose [Mass/Vol] 90 mg/dL 74 - 99 mg/dL [facility] Potassium [Moles/Vol] 3.8 mmol/L 3.7 - 5.1 mmol/L [facility] Protein [Mass/Vol] 6.3 g/dL 6.3 - 8.0 g/dL [facility] Sodium [Moles/Vol] 141 mmol/L 136 - 144 mmol/L [facility] Urea nitrogen [Mass/Vol] 25 mg/dL High 9 - 24 mg/dL [facility] LD LACTATE DEHYDROon 023 LDH [Catalytic activity/Vol] 355 U/L High 135 - 225 U/L [facility] MAGNESIUM BLDon 08-01-2023 Magnesium [Mass/Vol] 1.5 mg/dL Low 1.7 - 2 .3 mg/dL [facility] Basophil percentageOrdered B y: Floyd Guardado on 07-25-2023 Cholesterol [Mass/Vol] 121 mg/dL <200 [facility] Comment on above: <200 mg/dL Desirable 200-240 mg/dL Borderline >240 mg/dL High Risk Triglyceride [Mass/Vol] 87 mg/dL <199 [facility] Comment on above: The drugs N-Acetylcy steine and Metamizole may falsely depress this assay.Serum Triglycerides Reference Interval Normal <150 mg/dL Borderline high 150 - 199 mg/dL High 200 - 499 mg/dL Very High > or = 500 mg/dL No Panel InformationOrdered By: Floyd Guardado on 07-25-2023 Vitamin D 25-Hydroxy 45.3 ng/mL [facility] Comment on above: Vitamin D 25(OH) Sta tus Range Deficiency <20 ng/mL (50nmol/L) Insufficiency 20 - 30 ng/mL (50 - 75 nmol/L) Sufficiency 30 - 100 ng/mL (75 - 250 nmol/L) Toxicity >100 ng/mL (>250 nmol/L) Serum or plasma cholesterol in HDL measurement (mass/volume)Ordered By: Floyd Guardado on 07-25-2023 Cholesterol in HDL [Mass/Vol] 61 mg/dL >40 [facility] Comment on above: The drugs N-Acetylcy steine and Metamizole may falsely depress this assay. Reference Range HDL <40 mg/dL Low HDL Cholesterol HDL >or= 60 mg/dL High HDL Cholesterol Serum or plasma cholesterol in VLDL measurement (mass/volume)Ordered By: Floyd Guardado on 07-25-2023 Cholesterol in VLDL [Mass/Vol] 17 mg/dL 5-40 [facility] Serum or plasma low density lipoprotein (LDL) cholesterol measurement (mass/volume)Ordered By: Floyd Guardado on 07-25-2023 Cholesterol in LDL [Mass/Vol] 43 mg/dL 0-130 [facility] Whole blood hemoglobin A1c/t otal hemoglobin ratio (mass fraction)Ordered By: Floyd Guardado on 07-25-2023 HbA1c (Bld) [Mass fraction] 5.2 % 3.8-5.6 [facility] Comment on above: Normal < 5.7 % Predi abetic 5.7 - 6.4 % Diabetic >or= 6.5 % Please note range changes. SURG PATH REQUESTon 07-16-20 Case Report Normal [facility] Comment on above: Result Comment: Surg ical Pathology Report Case: [id number] Authorizing Provider: Maninder Rankni MD Collected: 07/16/2023 12:42 PM Ordering Location[facility] Received: 07/16/2023 12:41 PM [place] Pathologist: Lukas Chambers MD, PhD Specimen: SURG PATH, Retroperitoneum 18-gauge x7 cores Performed By: #### S URGP #### [facility] (DEFAULT) [address] [place] [id number] Gross Description Normal [facility] Comment on above: Result Comment: The following material(s) are received from [facility], [address] [place] [id number] with an identifying Surgical Pathology Report: 2 H&E and 14 non-H&E slides labeled [id number]. The [facility] Flow Cytometry and Solid Tumor Immunohistochemical Analysis results are included for review. Outside materials are returned in 60 days under separate cover with our number recorded on them. Grosser for this case was: Terrienoreen Muniz For Immediate Release to Patient's MyChart? No Performed By: #### S URGP #### [facility] (DEFAULT) [address] [place] [id number] Microscopic Description A microscopic examination was performed. Normal [facility] Comment on above: Performed By: #### S URGP #### [facility] (DEFAULT) [address] [place] [id number] Pathologic Diagnosis Normal [facility] Comment on above: Result Comment: Outs nelly Slides [id number] (05/16/23) A. 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%) Immunohistochemical results using slides provided by the outside institution: positive MARCO$, PLAP, CD117 negative CD20, CD45, CD30, HCG Performed By: #### S URGP #### [facility] (DEFAULT) [address] [place] [id number] ALPHA FETOPROTEIN BLon 07-15 AFP [Mass/Vol] <11.0 ng/mL [facility] CBC W Auto Differential pane l (Bld)on 07-14-2023 Basophils (Bld) [#/Vol] 0.04 10*3/uL <0.11 k/uL [facility] Basophils/100 WBC (Bld) 0.7 % [facility] Differential cell count method Nom (Bld) Auto [facility] Eosinophils (Bld) [#/Vol] 0.27 10*3/uL <0.46 k/uL [facility] Eosinophils/100 WBC (Bld) 4.9 % [facility] Erythrocyte distribution width (RBC) [Ratio] 15.1 % High 11.5 - 15.0 % [facility] Hematocrit (Bld) [Volume fraction] 34.2 % Low 39.0 - 51.0 % [facility] Hemoglobin (Bld) [Mass/Vol] 11.0 g/dL Low 13.0 - 17.0 g/dL [facility] Immature granulocytes (Bld) [#/Vol] 0.04 10*3/uL <0.10 k/uL [facility] Immature granulocytes/100 WBC (Bld) 0.7 % [facility] Lymphocytes (Bld) [#/Vol] 0.39 10*3/uL Low 1.00 - 4.00 k/uL [facility] Lymphocytes/100 WBC (Bld) 7.1 % [facility] MCH (RBC) [Entitic mass] 28.1 pg 26.0 - 34.0 pg [facility] MCHC (RBC) [Mass/Vol] 32.2 g/dL 30.5 - 36.0 g/dL [facility] MCV (RBC) [Entitic vol] 87.2 fL 80.0 - 100.0 fL [facility] Monocytes (Bld) [#/Vol] 0.47 10*3/uL <0.87 k/uL [facility] Monocytes/100 WBC (Bld) 8.5 % [facility] Neutrophils (Bld) [#/Vol] 4.29 10*3/uL 1.45 - 7.50 k/uL [facility] Neutrophils/100 WBC (Bld) 78.1 % [facility] Nucleated RBC (Bld) [#/Vol] <0.01 k/uL [facility] Nucleated RBC/100 WBC (Bld) [Ratio] 0.0 /100 WBC [facility] Platelet mean volume (Bld) [Entitic vol] 8.2 fL Low 9.0 - 12.7 fL [facility] Platelets (Bld) [#/Vol] 245 10*3/uL 150 - 400 k/uL [facility] RBC (Bld) [#/Vol] 3.92 10*6/uL Low 4.20 - 6.0 0 m/uL [facility] WBC (Bld) [#/Vol] 5.50 10*3/uL 3.70 - 11. 00 k/uL [facility] Comprehensive metabolic 2000 panelon 07-14-2023 Albumin [Mass/Vol] 3.9 g/dL 3.9 - 4.9 g/dL [facility] ALP [Catalytic activity/Vol] 196 U/L High 38 - 113 U/L [facility] ALT [Catalytic activity/Vol] 16 U/L 10 - 54 U/L [facility] Anion gap [Moles/Vol] 12 mmol/L 9 - 18 mmol/L [facility] AST [Catalytic activity/Vol] 18 U/L 14 - 40 U/L [facility] Bilirubin [Mass/Vol] 0.3 mg/dL 0.2 - 1 .3 mg/dL [facility] Calcium [Mass/Vol] 11.2 mg/dL High 8.5 - 10. 2 mg/dL [facility] Chloride [Moles/Vol] 103 mmol/L 97 - 10 5 mmol/L [facility] CO2 [Moles/Vol] 25 mmol/L 22 - 30 mmol/L [facility] Creatinine [Mass/Vol] 2.70 mg/dL High 0.73 - 1.22 mg/dL [facility] Estimated Glomerular Filtration Rate 31 mL/min/1.73m Low >=60 mL/min/1.73m [facility] Glucose [Mass/Vol] 124 mg/dL High 74 - 99 mg/dL [facility] Potassium [Moles/Vol] 3.8 mmol/L 3.7 - 5.1 mmol/L [facility] Protein [Mass/Vol] 6.9 g/dL 6.3 - 8.0 g/dL [facility] Sodium [Moles/Vol] 140 mmol/L 136 - 144 mmol/L [facility] Urea nitrogen [Mass/Vol] 36 mg/dL High 9 - 24 mg/dL [facility] LD LACTATE DEHYDROon 023 LDH [Catalytic activity/Vol] 552 U/L High 135 - 225 U/L [facility] MAGNESIUM BLDon 07-14-2023 Magnesium [Mass/Vol] 2.0 mg/dL 1.7 - 2 .3 mg/dL [facility] ANES POSTPROC EVALon 023 ANES POSTPROC EVAL HNO ID: [id number] Author: Kristin Garcia MD Service: Anesthesiology Author Type: Physician Type: Anesthesia Postprocedure Evaluation Filed: 07/10/2023 12:54 PM Note Text: POST ANESTHESIA EVALUATION NOTE : 1990 Procedure Summary Date: 07/10/23 Room / Location: LD OR OR Anesthesia Start: 1116 Anesthesia Stop: Procedure: INSERTION CATHETER PORT-A-CATH WITH C-ARM (Right: Chest) Diagnosis: Seminoma of descended testis, 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 Anticipated Disposition: phase 2 then home. Neurological Status: aware and responsive. Pulmonary Status: breathing comfortably on room air Airway Control: returned to baseline unsupported. Cardiovascular Status: stable. Pain Management: clinically adequate Postoperative Hydration: acceptable. Intraoperative Events: no significant anesthesia events Post Operative Nausea/Vomiting Status: no significant post operative nausea or vomiting Recommendation: continue current plan of care. Anesthesia Observations No Documentation SIGNATURE: Kristin Garcia MD PATIENT NAME: Paul Palacios DATE: July 10, 2023 TIME: 12:53 PM CSN: [id number] [facility] ANES PRE-OPon 07-10-2023 ANES PRE-OP HNO ID: [id number] Author: Kristin Garcia MD Service: Anesthesiology Author Type: Physician Type: Anesthesia Preprocedure Evaluation Filed: 07/10/2023 10:59 AM Note Text: ANESTHESIOLOGY DAY OF SURGERY NOTE : 1990 Procedure Information Date/Time: 07/10/23 1100 Procedure: INSERTION CATHETER PORT-A-CATH WITH C-ARM (Right: Chest) Location: LD OR OR Surgeons: Qi Rankin MD Estimated body mass index is 36 kg/m? as calculated from the following: Height as of 07/08/23: 181 cm (5' 11.26). Weight as of 07/08/23: 117.9 kg (260 lb). 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 Tracheostomy tube not present Mallampati: III. TM distance: >3 FB. Neck ROM: full ROM without neurological symptoms. Mouth opening: adequate. Short neck: no. Thick neck: yes Dobson present: no Microretrognathia/Micron agthia/Recessed Chin: Yes DENTAL Dental findings: teeth intact. II - ANESTHESIA PLAN ASA Score: 3 Anesthetic Plan: MAC The patient is not a current smoker. NPO Status: adequate Beta Jessi Monitoring Plan Monitoring plan: standard ASA. Post Procedure Analgesic Plan Postoperative analgesic plan: parenteral or oral opioids. Informed Consent Anesthetic risks, benefits, alternatives, personnel and consent discussed: yes. Patient / Responsible [employer] agrees to proceed: yes Patient / Surrogate agrees to blood products: Yes DNR status not reviewed with patient and/or family prior to surgery. Significant changes in the patient condition since the History and Physical, not otherwise documented in primary service progress note: no. Potential Anesthesia issues that may suggest increased risk of complications or contraindication to planned procedure: none. Vitals Value Taken Time BP 137/85 07/10/23 0958 Pulse 82 07/10/23 0958 Resp 19 07/10/23 0958 Temp 35.8 ?C (96.5 ?F) 07/10/23 0958 SpO2 100 % 07/10/23 0958 Facility-Administered Medications as of 07/10/2023 Medication Dose Route Frequency - lidocaine (PF) 10 mg/mL (1 %) 1-2 mg injection (XYLOCAINE) 0.1-0.2 mL INTRADERMAL PRN - lactated ringers iv infusion 5-30 mL/hr INTRAVENOUS CONTINUOUS - NaCl 0.9% iv flush bag 20 mL INTRAVENOUS PRN - vancomycin 1.5 g in D5W 250 mL (VANCOCIN) 1.5 g INTRAVENOUS Pre-Op Once Outpatient Medications as of 07/10/2023 Medication Sig - amLODIPine (NORVASC) 2.5 mg tablet Take 1 tablet by mouth every afternoon. - HYDROcodone-acetaminophe n (NORCO) 5-325 mg per tablet Take 1 tablet by mouth every 6 hours as needed for pain for up to 7 days. - TRUE METRIX GLUCOSE TEST STRIP test strip CHECK FASTING BLOOD SUGAR DAILY - FARXIGA 10 mg tablet Take 10 mg by mouth once daily. - TRULICITY 0.75 mg/0.5 mL pen injector - ammonium lactate (LAC-HYDRIN) 12 % lotion Ammonium Lactate (Amlactin) 57 GM lotion Active 57 GM TP TWICE A DAY April 28, 2017 4:39pm - clonazePAM (KLONOPIN) 0.5 mg tablet Take 1 tablet by mouth twice daily. - lamoTRIgine (LAMICTAL) 25 mg tablet Take 1 tablet by mouth every morning. - lamoTRIgine (LAMICTAL) 100 mg tablet Take 1 tablet by mouth twice daily. - buPROPion (WELLBUTRIN) 75 mg tablet Take 75 mg by mouth twice daily. - fluvoxaMINE (LUVOX) 100 mg tablet Take 1 tablet by mouth twice daily. - hydrOXYzine pamoate (VISTARIL) 50 mg capsule Take 1 capsule by mouth twice daily. - fluticasone (FLONASE) 50 mcg/actuation nasal spray Use 2 Sprays in each nostril once daily. - QUEtiapine (SEROQUEL) 200 mg tablet Take 200 mg by mouth twice daily. - Cholecalciferol, Vitamin D3, (VITAMIN D-3) 2,000 unit cap Take by mouth once daily. - oxybutynin (DITROPAN) 5 mg tablet Take 5 mg by mouth twice daily. - montelukast (SINGULAIR) 10 mg tablet Take 10 mg by mouth daily at bedtime. - benzonatate (TESSALON PERLES) 100 mg capsule Take 2 capsules by mouth three times daily as needed. - risperidone (RISPERDAL) 1 mg ORAL Tab Take 1 mg by mouth four times daily. - ondansetron orally disintegrating (ZOFRAN ODT) 4 mg disintegrating tablet I have interviewed and examined the patient. I have reviewed the medical record and/or the pre-anesthesia evaluation, pertinent labs, and test results. This contains updated information obtained within 48 hours of Surgery/Procedure. SIGNATURE: Kristin Garcia MD PATIENT NAME: Paul Palacios DATE: July 10, 2023 TIME: 10:49 AM CSN: [id number] [facility] BRIEF OP NOTon 07-10-2023 BRIEF OP NOT HNO ID: [id number] Author: Qi Rankin MD Service: General Surgery Author Type: Physician Type: Brief Op Note Filed: 07/10/2023 12:37 PM Note Text: BRIEF OPERATIVE NOTE SURGERY DATE: 07/10/2023 Incision/Procedure Start Time: 11:42 Incision Close/Procedure End Time: 12:35 Surgeon(s)/Proceduralist (s) and Etl Data Architect(s): first Óscaradmin assistant Preeti Win Procedures: Placement of right IJ portacath Anesthesia: General LMA Findings: normal right IJ anatomy to SVC Estimated Blood Loss: 5 ml Specimens: None Complications: None IMPLANTS: Power Port Lot [id number]; exp 2024-07-17 Closure Technique: Primary Preop Diagnosis: metastatic testicular cancer, need for IV access Postop Diagnosis: same SIGNATURE: Qi Rankin MD PATIENT NAME: Paul Palacios DATE: July 10, 2023 Acct: [id number] TIME: 12:30 PM [facility] NURSING PROGon 07-10-2023 NURSING PROG HNO ID: [id number] Author: Misty Villa RN Service: Nursing Author Type: Registered Nurse Type: Nursing Progress Note Filed: 07/10/2023 10:08 AM Note Text: Pt resting comfortably on cart. Pt verbalizes procedure and surgeon performing procedure. Side rails up x 2. Call light within reach. auto fleet maintenance manager Tiffanie at bed side. [facility] OPERATIVE NOon 07-10-2023 OPERATIVE NO HNO ID: [id number] Author: Qi Rankin MD Service: General Surgery Author Type: Physician Type: Operative Report Filed: 07/11/2023 8:19 AM Note Text: [facility] - Operative Report - PAUL Rosas : 1990 AGE: 32. SEX: M PATIENT TYPE: A [facility] [place]: [facility] LOCATION: [facility] ATTENDING PHYSICIAN: Qi Rankin MD CSN NUMBER: [id number] DATE OF SURGERY/PROCEDURE: 07/10/2023 INCISION/PROCEDURE START TIME: 1142 INCISION CLOSE/PROCEDURE END TIME: 1235 PREOPERATIVE DIAGNOSIS: Metastatic testicular cancer. Need for IV access for IV chemotherapy. POSTOPERATIVE DIAGNOSIS: Metastatic testicular cancer. Need for IV access for IV chemotherapy. SURGEON: Qi Rankin MD LEAD MACHINIST: Preeti Win. She is PA assisting me as there is no surgery resident available. She assisted in retraction during the procedure and closure of the wound under my supervision. SURGERY/PROCEDURE: Placement of permanent indwelling tunneled vascular catheter in the right internal jugular vein with subcutaneous port. ANESTHESIA: MAC local. INDICATIONS: Paul Palacios is a 32-year-old white male, who has been recently diagnosed with metastatic testicular cancer with retroperitoneal adenopathy. He requires IV access for IV chemotherapy. He has been counseled of the risks of procedure including, but not limited to, infection, bleeding, injury to any blood vessels or nerves, thrombosis of blood vessels, line sepsis, injury to the lungs such as pneumothorax and/or hemothorax, migration of the catheter, not having any access, i.e., inability to place the vascular catheter, mechanical nonfunctioning of the port, infection of the port, scar tissue, wound infection, etc. The patient understands and agrees to proceed. DESCRIPTION OF PROCEDURE: After informed consent was given, the patient was brought to the operating room. He was placed in supine position. Appropriate time-out protocol was followed. The patient was then placed under anesthesia by the anesthesia provider. The patient's upper chest and neck area was then prepped with sterile surgical skin preparation. Appropriate sterile surgical drapes were placed. The patient's neck and right upper chest area were infiltrated with local anesthetic in the skin and soft tissues. The ultrasound machine was brought in for real-time imaging. The patient's right neck was ultrasounded to localize and identify the right internal jugular vein. The right internal jugular vein was identified. It was accessed using a needle trocar device under ultrasound guidance. Under ultrasound guidance, the needle was noted to be piercing through skin, then entering into the right internal jugular vein. Aspiration of the needle revealed good aspiration of venous blood. A wire was then directed through the needle trocar and passed into the right internal jugular vein and this was visualized under fluoroscopy. It was then noted to be entering into the superior vena cava. The needle trocar was removed. A small skin naveen was made at the wire entrance site. A dilator and sheath were then passed over the wire via the Seldinger technique and directed into the superior vena cava and this was entirely visualized using fluoroscopy. The dilator was removed. A catheter was then inserted into the introducer sheath. It was visualized under fluoroscopy and it was directed so that the tip would be within the cardiac silhouette. The tip was noted to be at approximately 20 cm at the catheter entrance site at the skin. The introducer sheath was then removed. The skin and subcutaneous tissues of the patient's right upper chest area were then infiltrated with local anesthetic. A transverse skin incision was made in this area. Subcutaneous pocket was then bluntly dissected out. Any hemorrhage was adequately controlled with an electrocautery. The subcutaneous port was then sutured to the pocket using Vicryl suture. The catheter was then tunneled from the neck site to the pocket using the tunneling device. It was then connected to the subcutaneous cord according to textiles and clothing teacher's guidelines. Aspiration of the port revealed no blood that could be aspirated. The catheter was then pulled back approximately 4 cm (as the entrance site was at 20 cm) and as this was done, there was good aspiration of blood. Therefore, a small loop was created near the subcutaneous pocket to allow for the pullback portion of the catheter to be placed in the subcutaneous pocket. The port was then flushed with heparinized saline. The subcu dermal tissues were then reapproximated using Vicryl suture in interrupted simple fashion. Skin incisions were closed with 4-0 Monocryl in a running subcuticular fashion. Benzoin and Steri-Strips used to reinforce skin closure. Proper sterile dressings were applied. An intraprocedure chest x-ray revealed that the catheter was in the superior aspe (more content not included)... Normal [facility] XR CHEST 1V FRONTALon 2022 XR CHEST 1V FRONTAL * * *Final Report* * * DATE OF EXAM: Jul 10 2023 1:12PM LDX 5290 - XR CHEST 1V FRONTAL / PROCEDURE REASON: Post-operative / post-procedure assessment, symptomatic * * * * Physician Interpretation * * * * EXAM TITLE: XR CHEST 1V FRONTAL DATE: 07/10/2023 at 1236 INDICATION: Status post placement of Port-A-Cath COMPARISON: CT scan dated 07/08/2023 Supine view of the chest shows right-sided reservoir port catheter overlying the right upper chest. The catheter loops superiorly into the soft tissues of the right neck and then is directed inferiorly within the internal jugular vein region. Tip is most likely near junction of internal jugular vein and right subclavian vein. No pneumothorax. Probable atelectasis in the perihilar regions. Heart and mediastinum are unremarkable. IMPRESSION: Right-sided reservoir port catheter. Tip of the catheter is noted in the region of the distal right IJ and subclavian confluence. Operations Staff Specialist Security: [facility] Transcribe Date/Time: Jul 10 2023 1:27P Dictated by : KATHRIN COOPER MD This examination was interpreted and the report reviewed and electronically signed by: KATHRIN COOPER MD on Jul 10 2023 1:29PM EST [id number] Normal [facility] XR FLUOROGUIDE VEIN DEVICEon 07-10-2023 XR FLUOROGUIDE VEIN DEVICE * * *Final Report* * * DATE OF EXAM: Jul 10 2023 1:54PM LDX 5516 - XR FLUOROGUIDE VEIN DEVICE / PROCEDURE REASON: Seminoma of descended testis C62.11 * * * * Physician Interpretation * * * * XR FLUOROGUIDE VEIN DEVICE HISTORY: Seminoma of descended testis C62.11 TECHNIQUE: 6 fluoroscopic image(s) obtained for intraoperative fluoroscopic guidance. Please refer to the operative notes for details. Fluoroscopic Radiation Summary: Plane A, Air Kerma: 7.4 mGy Dose Area Product (DAP): 0.0 mGy*cm^2 Fluoro time: 0:27 min:sec IMPRESSION: Documentation of intraoperative fluoroscopic guidance as above Operations Staff Specialist Security: [facility] Transcribe Date/Time: Jul 10 2023 3:13P Dictated by : JIMMY HUMMEL MD This examination was interpreted and the report reviewed and electronically signed by: JIMMY HUMMEL MD on Jul 10 2023 4:39PM EST [id number] Normal 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 He denies history of blood clots. He denies history of clavicular/rib fractures. He is referred by his oncologist for placement of VAD port. 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 HYDROcodone-acetaminophe n (NORCO) 5-325 mg per tablet Take 1 tablet by mouth every 6 hours as needed for pain for up to 7 days. TRUE METRIX GLUCOSE TEST STRIP test strip CHECK FASTING BLOOD SUGAR DAILY FARXIGA 10 mg tablet Take 10 mg by mouth once daily. TRULICITY 0.75 mg/0.5 mL pen injector ammonium lactate (LAC-HYDRIN) 12 % lotion Ammonium Lactate (Amlactin) 57 GM lotion Active 57 GM TP TWICE A DAY April 28, 2017 4:39pm clonazePAM (KLONOPIN) 0.5 mg tablet Take 1 tablet by mouth twice daily. lamoTRIgine (LAMICTAL) 25 mg tablet Take 1 tablet by mouth every morning. lamoTRIgine (LAMICTAL) 100 mg tablet Take 1 tablet by mouth twice daily. buPROPion (WELLBUTRIN) 75 mg tablet Take 75 mg by mouth twice daily. fluvoxaMINE (LUVOX) 100 mg tablet Take 1 tablet by mouth twice daily. hydrOXYzine pamoate (VISTARIL) 50 mg capsule Take 1 capsule by mouth twice daily. fluticasone (FLONASE) 50 mcg/actuation nasal spray Use 2 Sprays in each nostril once daily. QUEtiapine (SEROQUEL) 200 mg tablet Take 200 mg by mouth twice daily. Cholecalciferol, Vitamin D3, (VITAMIN D-3) 2,000 unit cap Take by mouth once daily. oxybutynin (DITROPAN) 5 mg tablet Take 5 mg by mouth twice daily. montelukast (SINGULAIR) 10 mg tablet Take 10 mg by mouth daily at bedtime. benzonatate (TESSALON PERLES) 100 mg capsule Take 2 capsules by mouth three times daily as needed. risperidone (RISPERDAL) 1 mg ORAL Tab Take 1 mg by mouth four times daily. No current facility-administered medications for this visit. ALLERGIES: Keflex [Cephalexin] PERSONAL HISTORY: SOCIAL HISTORY Social History Tobacco Use Smoking status: Never Smokeless tobacco: Never Vaping Use Vaping Use: Never used Substance Use Topics Alcohol use: Never Drug use: Never FAMILY HISTORY FAMILY HISTORY Adopted: Yes Problem Relation Age of Onset No Known Problems Mother The review of systems data was entered by the nurse and reviewed by tn Nursing Notes: Bonita Aguilar 07/08/2023 2:25 PM Signed REVIEW OF SYSTEMS: General: The patient denies fatigue, NOTES weight loss, denies weight gain, denies feeling hot, and denies feelings of cold. Eyes: The patient denies glaucoma, denies eye injury/surgery, wears glasses or contacts. Ear/Nose/Throat: The patient NOTES allergies, denies hayfever, denies ear infections, and denies bloody noses. Cardiovascular: The patient denies chest pain, denies heart disease, NOTES high blood pressure,denies cardiac stent, denies prior heart attack, denies irregular heart beat, denies high cholesterol, denies poor circulation, denies heart failure, other cardiac issues, denies claudication, denies cold feet, denies peripheral arterial stent. Respiratory: The patient denies tuberculosis, denies pneumonia, denies frequent cough, denies pulmonary embolism, denies shortness of breath, and denies coughing up blood. Gastrointestinal: The patient denies difficulty swallowing, denies acid reflux, denies ulcers, denies vomiting, denies jaundice/hepatitis, denies gallbladder problems, denies black or tarry stools, denies hemorrhoids, denies bleeding from rectum, denies diverticulitis, denies constipation, denies diarrhea, denies loss of stool control, and denies hernias. Kidney/Bladder: The patient denies kidney stones, denies urine infections, NOTES renal failure, and denies bloody urine. Skin: The patient denies a history of skin cancer, denies bleeding/changing moles, and denies a history of skin rash. Neurologic: The patient denies a history of epilepsy/convulsions, denies headaches, denies head/spinal injuries, and denies stroke/TIA. Psychiatric: The patient denies psychiatric medications, denies depression, and denies voices, denies substance abuse. (more content not included)... Normal [facility] No Panel Informationon 07-08 [facility] BETA HCG QUANT TUMOR MARKERo n 07-05-2023 HCG.beta subunit Qn 103 IU/L High 0 - 3 IU/L [facility] ALPHA FETOPROTEIN BLon 07-04 AFP [Mass/Vol] <11.0 ng/mL [facility] HIV 1+2 Ab IA Qlon 3 HIV 1 and 2 Ab IA.rapid Nom [facility] HIV 1+2 Ab+HIV1 p24 Ag IA Ql Non-Reactive Nonreactive [facility] HIV immunoassay testing algorithm interpretation (S/P/Bld) [Interp] [facility] CBC W Auto Differential pane l (Bld)on 07-03-2023 Basophils (Bld) [#/Vol] 0.07 10*3/uL <0.11 k/uL [facility] Basophils/100 WBC (Bld) 0.9 % [facility] Differential cell count method Nom (Bld) Auto [facility] Eosinophils (Bld) [#/Vol] 0.21 10*3/uL <0.46 k/uL [facility] Eosinophils/100 WBC (Bld) 2.8 % [facility] Erythrocyte distribution width (RBC) [Ratio] 14.9 % 11.5 - 15.0 % [facility] Hematocrit (Bld) [Volume fraction] 35.8 % Low 39.0 - 51.0 % [facility] Hemoglobin (Bld) [Mass/Vol] 11.4 g/dL Low 13.0 - 17.0 g/dL [facility] Immature granulocytes (Bld) [#/Vol] 0.10 10*3/uL High <0.10 k/uL [facility] Immature granulocytes/100 WBC (Bld) 1.3 % [facility] Lymphocytes (Bld) [#/Vol] 0.54 10*3/uL Low 1.00 - 4.00 k/uL [facility] Lymphocytes/100 WBC (Bld) 7.2 % [facility] MCH (RBC) [Entitic mass] 27.8 pg 26.0 - 34.0 pg [facility] MCHC (RBC) [Mass/Vol] 31.8 g/dL 30.5 - 36.0 g/dL [facility] MCV (RBC) [Entitic vol] 87.3 fL 80.0 - 100.0 fL [facility] Monocytes (Bld) [#/Vol] 0.81 10*3/uL <0.87 k/uL [facility] Monocytes/100 WBC (Bld) 10.8 % [facility] Neutrophils (Bld) [#/Vol] 5.77 10*3/uL 1.45 - 7.50 k/uL [facility] Neutrophils/100 WBC (Bld) 77.0 % [facility] Nucleated RBC (Bld) [#/Vol] <0.01 k/uL [facility] Nucleated RBC/100 WBC (Bld) [Ratio] 0.0 /100 WBC [facility] Platelet mean volume (Bld) [Entitic vol] 8.1 fL Low 9.0 - 12.7 fL [facility] Platelets (Bld) [#/Vol] 395 10*3/uL 150 - 400 k/uL [facility] RBC (Bld) [#/Vol] 4.10 10*6/uL Low 4.20 - 6.0 0 m/uL [facility] WBC (Bld) [#/Vol] 7.50 10*3/uL 3.70 - 11. 00 k/uL [facility] Comprehensive metabolic 2000 panelon 07-03-2023 Albumin [Mass/Vol] 3.8 g/dL Low 3.9 - 4.9 g/dL [facility] ALP [Catalytic activity/Vol] 273 U/L High 38 - 113 U/L [facility] ALT [Catalytic activity/Vol] 24 U/L 10 - 54 U/L [facility] Anion gap [Moles/Vol] 12 mmol/L 9 - 18 mmol/L [facility] AST [Catalytic activity/Vol] 26 U/L 14 - 40 U/L [facility] Bilirubin [Mass/Vol] 0.4 mg/dL 0.2 - 1 .3 mg/dL [facility] Calcium [Mass/Vol] 12.3 mg/dL High 8.5 - 10. 2 mg/dL [facility] Chloride [Moles/Vol] 100 mmol/L 97 - 10 5 mmol/L [facility] CO2 [Moles/Vol] 22 mmol/L 22 - 30 mmol/L [facility] Creatinine [Mass/Vol] 2.65 mg/dL High 0.73 - 1.22 mg/dL [facility] Estimated Glomerular Filtration Rate 32 mL/min/1.73m Low >=60 mL/min/1.73m [facility] Glucose [Mass/Vol] 89 mg/dL 74 - 99 mg/dL [facility] Potassium [Moles/Vol] 4.1 mmol/L 3.7 - 5.1 mmol/L [facility] Protein [Mass/Vol] 7.8 g/dL 6.3 - 8.0 g/dL [facility] Sodium [Moles/Vol] 134 mmol/L Low 136 - 144 mmol/L [facility] Urea nitrogen [Mass/Vol] 37 mg/dL High 9 - 24 mg/dL [facility] LD LACTATE DEHYDROon 023 LDH [Catalytic activity/Vol] 864 U/L High 135 - 225 U/L [facility] PHOSPHORUS INORGANICon 07-03 Phosphate [Mass/Vol] 3.2 mg/dL 2.7 - 4 .8 mg/dL [facility] Basophil percentageOrdered B y: Simeon Cobos on 06-24-2023 Basophil percentage 25-50 SEEN /hpf 0-5 [facility] Bilirubin Test strip Ql (U)O rdered By: Simeon Cobos on 06-24-2023 Bilirubin Ql (U) Negative Negative [facility] Culture, urineOrdered By: Abilio Cobos on 06-24-2023 Bacteria identified Cx Nom (U) Staphylococcus epidermidis [facility] Bacteria identified Cx Nom (U) Staphylococcus epidermidis [facility] Ketones Test strip Ql (U)Ord ered By: Simeon Cobos on 06-24-2023 Ketones Ql (U) Negative Negative [facility] Mucus LM Ql (Urine sed)Order ed By: Simeon Cobos on 06-24-2023 Mucus Ql (Urine sed) 0 SEEN /hpf [facility] Nitrite Test strip Ql (U)Ord ered By: Simeon Cobos on 06-24-2023 Nitrite Ql (U) Negative Negative [facility] Protein Test strip Ql (U)Ord ered By: Simeon Cobos on 06-24-2023 Protein Ql (U) 100 mg/dl Negative [facility] Squamous epithelial cells de tection in urine sediment by light microscopyOrdered By: Simeon Cobos on 06-24-2023 Epithelial cells.squamous LM Ql (Urine sed) 0 SEEN /hpf 0-5 [facility] Urine blood detectionOrdered By: Simeon Cobos on 06-24-2023 RBC Ql (U) 25 /ul Negative [facility] RBC Ql (U) 0-5 SEEN /hpf 0-5 [facility] Urine clarityOrdered By: Shannan Cobos on 06-24-2023 Clarity (U) Sl. Cloudy Clear [facility] Urine color determinationOrd ered By: Simeon Cobos on 06-24-2023 Color (U) Yellow Yellow [facility] Urine glucose detectionOrder ed By: Simeon Cobos on 06-24-2023 Glucose Ql (U) 1000 mg/dl Normal [facility] Urine leukocyte esterase det ection by dipstickOrdered By: Simeon Cobos on 06-24-2023 Leukocyte esterase Test strip Ql (U) 500 /ul Negative [facility] Urine pHOrdered By: Simeon fitzpatrick on 06-24-2023 pH (U) 6.0 [pH] 5.0 - 8.0 [facility] Urine sediment bacteria coun t by microscopy (number/high power field)Ordered By: Simeon Cobos on 06-24-2023 Bacteria LM.HPF (Urine sed) [#/Area] 2 /[HPF] None Seen [facility] Urine specific gravity measu rementOrdered By: Simeon Cobos on 06-24-2023 Specific gravity (U) [Rel density] 1.020 1.002-1.030 [facility] Urobilinogen Auto test strip Ql (U)Ordered By: Simeon Cobos on 06-24-2023 Urobilinogen Ql (U) Normal mg/dl Normal [facility] Absolute lymphocyte countOrd ered By: Candace Banuelos on 06-20-2023 Lymphocytes Auto (Unsp spec) [#/Vol] 0.41 10*3/uL 0.83-4.51 [facility] Basophil percentageOrdered B y: Candace Banuelos on 06-20-2023 Basophils/100 WBC (Bld) 0.9 % 0-1 [facility] Chloride [Moles/Vol] 106 mmol/L 98-107 [facility] Eosinophils/100 WBC (Bld) 3.6 % 0-5 [facility] Glucose [Mass/Vol] 87 mg/dL 74-106 [facility] Neutrophils (Bld) [#/Vol] 4.0 10*3/uL 2.0-7.7 [facility] Neutrophils/100 WBC (Bld) 75.4 % 47-70 [facility] Potassium [Moles/Vol] 3.6 mmol/L 3.5-5.1 [facility] Sodium [Moles/Vol] 138 mmol/L 136-145 [facility] WBC (Bld) [#/Vol] 5.3 10*3/uL 4.4-11.0 [facility] Blood erythrocytes count (nu mber/volume)Ordered By: Candace Banuelos on 06-20-2023 RBC (Bld) [#/Vol] 4.45 10*6/uL 4.6-6.2 [facility] Blood hemoglobin measurement (mass/volume)Ordered By: Candace Banuelos on 06-20-2023 Hemoglobin (Bld) [Mass/Vol] 12.7 g/dL 13.0-16.5 [facility] Blood lymphocytes/100 leukoc ytesOrdered By: Candace Banuelos on 06-20-2023 Lymphocytes/100 WBC (Bld) 7.7 % 19-41 [facility] Blood manual differential co mment interpretation (narrative result)Ordered By: Candace Banuelos on 06-20-2023 Manual differential comment Augusto (Bld) [Interp] SCANNED [facility] Blood monocytes/100 leukocyt esOrdered By: Candace Banuelos on 06-20-2023 Monocytes/100 WBC (Bld) 12.0 % 0-10 [facility] Blood platelet mean volumeOr dered By: Candace Banuelos on 06-20-2023 Platelet mean volume (Bld) [Entitic vol] 8.5 fL 6.2-12.0 [facility] Determination of erythrocyte mean corpuscular volume (MCV)Ordered By: Candace Banuelos on 06-20-2023 MCV (RBC) [Entitic vol] 86.7 fL 80-94 [facility] Glucose Glucometer (dC) [M ass/Vol]Ordered By: Dandre Heart on 06-20-2023 Glucose [Mass/Vol] 94 mg/dL 74-106 [facility] Comment on above: MANAGEMENT OF PATIEN T CARE PER NURSING PROTOCOL Hematocrit Auto (Bld) [Volum e fraction]Ordered By: Candace Banuelos on 06-20-2023 Hematocrit (Bld) [Volume fraction] 38.6 % 40-54 [facility] Laboratory - Chemistry and C hemistry - challengeOrdered By: Candace Banuelos on 06-20-2023 CO2 [Moles/Vol] 23.0 mmol/L 21.0-32.0 [facility] Urea nitrogen/Creatinine [Mass ratio] 10.5 mg/mg 10-20 [facility] Laboratory - Hematology and Cell countsOrdered By: Candace Banuelos on 06-20-2023 Erythrocyte distribution width (RBC) [Entitic vol] 43.8 fL 35.1-43.9 [facility] Erythrocyte distribution width (RBC) [Ratio] 13.8 % 11.6-14.6 [facility] Immature granulocytes/100 WBC (Bld) 0.400 % 0.0-0.9 [facility] Comment on above: IG% - Immature Granu locytes (promyelocytes, myelocytes and metamyelocytes) > 1% indicates that a LEFT SHIFT is Present. MCH (RBC) [Entitic mass] 28.5 pg 27.0-32.0 [facility] Nucleated RBC/100 [facility] (Bld) [[facility]] 0 [facility] [Mass/Vol]Or dered By: Candace Banuelos on 06-20-2023 MCHC (RBC) [Mass/Vol] 32.9 g/dL 32-36 [facility] No Panel InformationOrdered By: Candace Banuelos on 06-20-2023 Estimated Creatinine Clearance Calc 37.94 ml/min [facility] Estimated GFR (MDRD) Amer 28 mL/min >60 [facility] Comment on above: GFR Calc Estimated GFR (MDRD) Non-Af Amer 24 mL/min >60 [facility] Comment on above: Non- GFR Calc Platelets bldOrdered By: Elisabeth Banuelos on 06-20-2023 Platelets (Bld) [#/Vol] 264 10*3/uL 150-450 [facility] Serum or plasma calcium carl urement (mass/volume)Ordered By: Candace Banuelos on 06-20-2023 Calcium [Mass/Vol] 11.0 mg/dL 8.5-10.1 [facility] Serum or plasma creatinine m easurement (mass/volume)Ordered By: Candace Banuelos on 06-20-2023 Creatinine [Mass/Vol] 3.25 mg/dL 0.70-1.30 [facility] Comment on above: The validity of the calculated GFR & GFRAA in patients over 70 years has not been determined. Clinical correlation is essential. Serum or plasma urea nitroge n measurement (mass/volume)Ordered By: Candace Banuelos on 06-20-2023 Urea nitrogen [Mass/Vol] 34 mg/dL 7-18 [facility] Thin prep Papanicolaou smear with manual screeningOrdered By: Candace Banuelos on 06-20-2023 Thin prep Papanicolaou smear with manual screening 9 5-15 [facility] Basophil percentageOrdered B y: Rosa Vera on 05-26-2023 LDH [Catalytic activity/Vol] 397 U/L 87-241 [facility] No Panel InformationOrdered By: Rosa Vera on 05-26-2023 HCG Beta Subunit 120 mIU/mL 0-3 [facility] Comment on above: [facility] ECLIA methodol ogyPerformed at: [facility] [address] [id number] [place], [place] [id number] Director: Juan Ramon Maxwell PhD, Phone: [phone] Serum or plasma [id number] protein tumor marker measurement (units/volume)Ordered By: Rosa Vera on 05-26-2023 AFP.tumor marker Qn < 1.8 ng/mL 0.0-6.9 [facility] Comment on above: [employer] El ectrochemiluminescence Immunoassay(ECLIA)Values obtained with different assay methods or kits cannotbe used interchangeably. Results cannot be interpreted asabsolute evidence of the presence or absence of malignantdisease.This test is not interpretable in females.Performed at: [id number] [place], [place] [id number] Director: Juan Ramon Maxwell PhD, Phone: [phone] Absolute lymphocyte countOrd ered By: Rosa Vera on 05-19-2023 Lymphocytes Auto (Unsp spec) [#/Vol] 0.49 10*3/uL 0.83-4.51 [facility] Basophil percentageOrdered B y: Rosa Vera on 05-19-2023 Basophils/100 WBC (Bld) 1.3 % 0-1 [facility] Eosinophils/100 WBC (Bld) 6.5 % 0-5 [facility] Neutrophils (Bld) [#/Vol] 3.9 10*3/uL 2.0-7.7 [facility] Neutrophils/100 WBC (Bld) 69.7 % 47-70 [facility] WBC (Bld) [#/Vol] 5.5 10*3/uL 4.4-11.0 [facility] Blood erythrocytes count (nu mber/volume)Ordered By: Rosa Vera on 05-19-2023 RBC (Bld) [#/Vol] 4.74 10*6/uL 4.6-6.2 [facility] Blood hemoglobin measurement (mass/volume)Ordered By: Rosa Vera on 05-19-2023 Hemoglobin (Bld) [Mass/Vol] 13.7 g/dL 13.0-16.5 [facility] Blood lymphocytes/100 leukoc ytesOrdered By: Rosa Vera on 05-19-2023 Lymphocytes/100 WBC (Bld) 8.9 % 19-41 [facility] Blood monocytes/100 leukocyt esOrdered By: Rosa Vera on 05-19-2023 Monocytes/100 WBC (Bld) 13.2 % 0-10 [facility] Blood platelet mean volumeOr dered By: Rosa Vera on 05-19-2023 Platelet mean volume (Bld) [Entitic vol] 8.3 fL 6.2-12.0 [facility] Determination of erythrocyte mean corpuscular volume (MCV)Ordered By: [facility] on 05-19-2023 MCV (RBC) [Entitic vol] 87.6 fL 80-94 [facility] Hematocrit Auto (Bld) [Volum e fraction]Ordered By: Rosa Vera on 05-19-2023 Hematocrit (Bld) [Volume fraction] 41.5 % 40-54 [facility] INR in Blood by Coagulation assayOrdered By: Rosa Vera on 05-19-2023 INR Coag (Bld) [Relative time] 1.1 {INR} [facility] Laboratory - CoagulationOrde red By: [facility] on 05-19-2023 aPTT Coag (Bld) [Time] 33.3 s 24.1-36.2 [facility] PT Coag (PPP) [Time] 14.2 s 11.7-14.9 [facility] Laboratory - Hematology and Cell countsOrdered By: [facility] on 05-19-2023 Erythrocyte distribution width (RBC) [Entitic vol] 44.7 fL 35.1-43.9 [facility] Erythrocyte distribution width (RBC) [Ratio] 14.0 % 11.6-14.6 [facility] Immature granulocytes/100 WBC (Bld) 0.400 % 0.0-0.9 [facility] Comment on above: IG% - Immature Granu locytes (promyelocytes, myelocytes and metamyelocytes) > 1% indicates that a LEFT SHIFT is Present. MCH (RBC) [Entitic mass] 28.9 pg 27.0-32.0 [facility] Nucleated RBC/100 WBC (Bld) [Ratio] 0 % 0-5 [facility] MCHC Auto (RBC) [Mass/Vol]Or dered By: Rosa Toni on 05-19-2023 MCHC (RBC) [Mass/Vol] 33.0 g/dL 32-36 [facility] [place] Platelets bldOrdered By: Joshua Sepulvedaandreas on 05-19-2023 Platelets (Bld) [#/Vol] 234 10*3/uL 150-450 [facility] 24 hour urine calcium measur ement (mass/time)on 05-14-2023 Calcium (24H U) [Mass/Time] 543.2 mg/24 HR 42.0-353.0 [facility] 24 hour urine creatinine neli surement (mass/time)on 05-14-2023 Creatinine (24H U) [Mass/Time] 1.59 g/24 HR 0.90-2.10 [facility] Absolute lymphocyte countOrd ered By: Mahad Le on 05-14-2023 Lymphocytes Auto (Unsp spec) [#/Vol] 0.39 10*3/uL 0.83-4.51 [facility] Basophil percentageOrdered B y: Mahad Lim on 05-14-2023 Basophil percentage 0-5 SEEN /hpf 0-5 [facility] Basophils/100 WBC (Bld) 0.5 % 0-1 [facility] Bilirubin [Mass/Vol] 0.60 mg/dL 0.20-1.00 [facility] Comment on above: For patients on eltr ombopag therapy, use of Dimension Oolitic TBIL is not recommended. Chloride [Moles/Vol] 109 mmol/L 98-107 [facility] Eosinophils/100 WBC (Bld) 2.3 % 0-5 [facility] Glucose [Mass/Vol] 131 mg/dL 74-106 [facility] Comment on above: Fasting Glucose resu lt greater than or equal to 126 mg/dL suggests DIABETES MELLITUS per A.D.A. criteria. LDH [Catalytic activity/Vol] 526 U/L 87-241 [facility] Neutrophils (Bld) [#/Vol] 7.2 10*3/uL 2.0-7.7 [facility] Neutrophils/100 WBC (Bld) 83.7 % 47-70 [facility] Potassium [Moles/Vol] 3.8 mmol/L 3.5-5.1 [facility] [place] Protein [Mass/Vol] 7.3 g/dL 6.4-8.2 [facility] Sodium [Moles/Vol] 139 mmol/L 136-145 [facility] WBC (Bld) [#/Vol] 8.6 10*3/uL 4.4-11.0 [facility] Bilirubin Test strip Ql (U)O rdered By: Mahad Lim on 05-14-2023 Bilirubin Ql (U) Negative Negative [facility] Blood erythrocytes count (nu mber/volume)Ordered By: Mahad Lim on 05-14-2023 RBC (Bld) [#/Vol] 4.55 10*6/uL 4.6-6.2 [facility] Blood hemoglobin measurement (mass/volume)Ordered By: Mahad Lim on 05-14-2023 Hemoglobin (Bld) [Mass/Vol] 13.8 g/dL 13.0-16.5 [facility] Blood lymphocytes/100 leukoc ytesOrdered By: Mahad Lim on 05-14-2023 Lymphocytes/100 WBC (Bld) 4.6 % 19-41 [facility] Blood monocytes/100 leukocyt esOrdered By: Mahad Lim on 05-14-2023 Monocytes/100 WBC (Bld) 8.5 % 0-10 [facility] Blood platelet mean volumeOr dered By: Mahad Lim on 05-14-2023 Platelet mean volume (Bld) [Entitic vol] 8.5 fL 6.2-12.0 [facility] Culture, urineOrdered By: Mikie Lim on 05-14-2023 Bacteria identified Cx Nom (U) Staphylococcus epidermidis [facility] Determination of erythrocyte mean corpuscular volume (MCV)Ordered By: Mahad Lim on 05-14-2023 MCV (RBC) [Entitic vol] 87.0 fL 80-94 [facility] Direct bilirubinOrdered By: Mahad Lim on 05-14-2023 Bilirubin.direct [Mass/Vol] 0.23 mg/dL 0.00-0.30 [facility] Hematocrit Auto (Bld) [Volum e fraction]Ordered By: Mahad Lim on 05-14-2023 Hematocrit (Bld) [Volume fraction] 39.6 % 40-54 [facility] Ketones Test strip Ql (U)Ord ered By: Mahad Lim on 05-14-2023 Ketones Ql (U) Negative Negative [facility] Laboratory - Chemistry and C hemistry - challengeOrdered By: Mahad Lim on 05-14-2023 ALP [Catalytic activity/Vol] 129 U/L 45-117 [facility] ALT [Catalytic activity/Vol] 45 U/L 16-61 [facility] CO2 [Moles/Vol] 23.0 mmol/L 21.0-32.0 [facility] Globulin (S) [Mass/Vol] 3.8 g/dL 2.2-4.2 [facility] Urea nitrogen/Creatinine [Mass ratio] 11.0 mg/mg 10-20 [facility] Laboratory - Chemistry and C hemistry - challengeon 05-14-2023 pH (U) 1 [pH] [facility] Laboratory - Hematology and Cell countsOrdered By: Mahad Lim on 05-14-2023 Erythrocyte distribution width (RBC) [Entitic vol] 44.9 fL 35.1-43.9 [facility] Erythrocyte distribution width (RBC) [Ratio] 14.3 % 11.6-14.6 [facility] Immature granulocytes/100 WBC (Bld) 0.400 % 0.0-0.9 [facility] Comment on above: IG% - Immature Granu locytes (promyelocytes, myelocytes and metamyelocytes) > 1% indicates that a LEFT SHIFT is Present. MCH (RBC) [Entitic mass] 30.3 pg 27.0-32.0 [facility] Nucleated RBC/100 WBC (Bld) [Ratio] 0 % 0-5 [facility] Laboratory - Specimen inform ationon 05-14-2023 Collection duration (U) 24.0 HOURS 24.0-24.0 [facility] Collection time (Ashish) [Date/time] 24.0 HR 24.0-24.0 [facility] MCHC Auto (RBC) [Mass/Vol]Or dered By: Mahad Lim on 05-14-2023 MCHC (RBC) [Mass/Vol] 34.8 g/dL 32-36 [facility] [place] Mucus LM Ql (Urine sed)Order ed By: Mahad Lim on 05-14-2023 Mucus Ql (Urine sed) 0 SEEN /hpf [facility] [place] Nitrite Test strip Ql (U)Ord ered By: Mahad Lim on 05-14-2023 Nitrite Ql (U) Negative Negative [facility] No Panel InformationOrdered By: Mahad Lim on 05-14-2023 Estimated Creatinine Clearance Calc 32.70 ml/min [facility] Estimated GFR (MDRD) Amer 26 mL/min >60 [facility] Comment on above: GFR Calc Estimated GFR (MDRD) Non-Af Amer 21 mL/min >60 [facility] Comment on above: Non- GFR Calc No Panel Informationon 05-14 Urine Calcium 15.3 Not Estab. [facility] Platelets bldOrdered By: Garfield Lim on 05-14-2023 Platelets (Bld) [#/Vol] 205 10*3/uL 150-450 [facility] Protein Test strip Ql (U)Ord ered By: Mahad Lim on 05-14-2023 Protein Ql (U) 30 mg/dl Negative [facility] Serum or plasma albumin carl urement (mass/volume)Ordered By: Mahad Lim on 05-14-2023 Albumin [Mass/Vol] 3.5 g/dL 3.2-5.0 [facility] Serum or plasma calcium carl urement (mass/volume)Ordered By: Mahad Lim on 05-14-2023 Calcium [Mass/Vol] 12.3 mg/dL 8.5-10.1 [facility] Serum or plasma creatinine m easurement (mass/volume)Ordered By: Mahad Lim on 05-14-2023 Creatinine [Mass/Vol] 3.56 mg/dL 0.70-1.30 [facility] [place] Comment on above: The validity of the calculated GFR & GFRAA in patients over 70 years has not been determined. Clinical correlation is essential. Serum or plasma urea nitroge n measurement (mass/volume)Ordered By: Mahad Lim on 05-14-2023 Urea nitrogen [Mass/Vol] 39 mg/dL 7-18 [facility] Squamous epithelial cells de tection in urine sediment by light microscopyOrdered By: Mahad Lim on 05-14-2023 Epithelial cells.squamous LM Ql (Urine sed) 0 SEEN /hpf 0-5 [facility] Thin prep Papanicolaou smear with manual screeningOrdered By: Mahad Lim on 05-14-2023 Thin prep Papanicolaou smear with manual screening 33 U/L 15-37 [facility] Thin prep Papanicolaou smear with manual screening 7 5-15 [facility] Urine blood detectionOrdered By: Mahad Lim on 05-14-2023 RBC Ql (U) 10 /ul Negative [facility] RBC Ql (U) 0 SEEN /hpf 0-5 [facility] Urine clarityOrdered By: Garfield Lim on 05-14-2023 Clarity (U) Clear Clear [facility] Urine color determinationOrd ered By: Mahad Lim on 05-14-2023 Color (U) Yellow Yellow [facility] Urine creatinine measurement (mass/volume)on 05-14-2023 Creatinine (U) [Mass/Vol] 45.30 mg/dL NO RANGE EST. [facility] Urine glucose detectionOrder ed By: Mahad Lim on 05-14-2023 Glucose Ql (U) 250 mg/dl Normal [facility] Urine leukocyte esterase det ection by dipstickOrdered By: Mahad Lim on 05-14-2023 Leukocyte esterase Test strip Ql (U) 25 /ul Negative [facility] Urine pHOrdered By: Mahad Lim on 05-14-2023 pH (U) 6.0 [pH] 5.0 - 8.0 [facility] Urine sediment bacteria coun t by microscopy (number/high power field)Ordered By: Mahad Lim on 05-14-2023 Bacteria LM.HPF (Urine sed) [#/Area] 0 /[HPF] None Seen [facility] Urine specific gravity measu rementOrdered By: Mahad Lim on 05-14-2023 Specific gravity (U) [Rel density] 1.010 1.002-1.030 [facility] Urine volume measurementon 0 05-14-2023 Specimen volume (U) 3.50 L [facility] Urobilinogen Auto test strip Ql (U)Ordered By: Mahad Lim on 05-14-2023 Urobilinogen Ql (U) Normal mg/dl Normal [facility] [place] US THYROID/PARATHYROID (POC) ENDO USE ONLYon 05-06-2023 [facility] Basophil percentageOrdered B y: Dr. Valderrama on 04-10-2023 Basophil percentage 3.2 mg/dL 2.5-4.9 [facility] Chloride [Moles/Vol] 108 mmol/L 98-107 [facility] Glucose [Mass/Vol] 147 mg/dL 74-106 [facility] Comment on above: Fasting Glucose resu lt greater than or equal to 126 mg/dL suggests DIABETES MELLITUS per A.D.A. criteria. Potassium [Moles/Vol] 4.6 mmol/L 3.5-5.1 [facility] [place] Sodium [Moles/Vol] 139 mmol/L 136-145 [facility] WBC (Bld) [#/Vol] 4.5 10*3/uL 4.4-11.0 [facility] Blood erythrocytes count (nu mber/volume)Ordered By: Dr. Valderrama on 04-10-2023 RBC (Bld) [#/Vol] 4.85 10*6/uL 4.6-6.2 [facility] Blood hemoglobin measurement (mass/volume)Ordered By: Dr. Valderrama on 04-10-2023 Hemoglobin (Bld) [Mass/Vol] 14.2 g/dL 13.0-16.5 [facility] Blood platelet mean volumeOr dered By: Dr. Valderrama on 04-10-2023 Platelet mean volume (Bld) [Entitic vol] 8.9 fL 6.2-12.0 [facility] Determination of erythrocyte mean corpuscular volume (MCV)Ordered By: Dr. Valderrama on 04-10-2023 MCV (RBC) [Entitic vol] 88.5 fL 80-94 [facility] Hematocrit Auto (Bld) [Volum e fraction]Ordered By: Dr. Valderrama on 04-10-2023 Hematocrit (Bld) [Volume fraction] 42.9 % 40-54 [facility] Laboratory - Chemistry and C hemistry - challengeOrdered By: Dr. Valderrama on 04-10-2023 CO2 [Moles/Vol] 24.0 mmol/L 21.0-32.0 [facility] Urea nitrogen/Creatinine [Mass ratio] 11.7 mg/mg 10-20 [facility] Laboratory - Hematology and Cell countsOrdered By: Dr. Valderrama on 04-10-2023 Erythrocyte distribution width (RBC) [Entitic vol] 43.0 fL 35.1-43.9 [facility] Erythrocyte distribution width (RBC) [Ratio] 13.2 % 11.6-14.6 [facility] MCH (RBC) [Entitic mass] 29.3 pg 27.0-32.0 [facility] MCHC Auto (RBC) [Mass/Vol]Or dered By: Dr. Valderrama on 04-10-2023 MCHC (RBC) [Mass/Vol] 33.1 g/dL 32-36 [facility] [place] No Panel InformationOrdered By: Dr. Valderrama on 04-10-2023 Estimated GFR (MDRD) Amer 25 mL/min >60 [facility] Comment on above: GFR Calc Estimated GFR (MDRD) Non-Af Amer 21 mL/min >60 [facility] Comment on above: Non- GFR Calc Parathyroid Hormone (Intact) 30.4 pg/mL 18.4-80.1 [facility] Vitamin D 25-Hydroxy 53.1 ng/mL [facility] Comment on above: Vitamin D 25(OH) Sta tus Range Deficiency <20 ng/mL (50nmol/L) Insufficiency 20 - 30 ng/mL (50 - 75 nmol/L) Sufficiency 30 - 100 ng/mL (75 - 250 nmol/L) Toxicity >100 ng/mL (>250 nmol/L) Platelets bldOrdered By: Dr. Valderrama on 04-10-2023 Platelets (Bld) [#/Vol] 232 10*3/uL 150-450 [facility] Serum or plasma albumin carl urement (mass/volume)Ordered By: Dr. Valderrama on 04-10-2023 Albumin [Mass/Vol] 3.4 g/dL 3.2-5.0 [facility] Serum or plasma calcium carl urement (mass/volume)Ordered By: Dr. Valderrama on 04-10-2023 Calcium [Mass/Vol] 12.3 mg/dL 8.5-10.1 [facility] Serum or plasma creatinine m easurement (mass/volume)Ordered By: Dr. Valderrama on 04-10-2023 Creatinine [Mass/Vol] 3.59 mg/dL 0.70-1.30 [facility] [place] Comment on above: The validity of the calculated GFR & GFRAA in patients over 70 years has not been determined. Clinical correlation is essential. Serum or plasma urea nitroge n measurement (mass/volume)Ordered By: Dr. Valderrama on 04-10-2023 Urea nitrogen [Mass/Vol] 42 mg/dL 7-18 [facility] Urine creatinine measurement (mass/volume)Ordered By: Dr. Valderrama on 04-10-2023 Creatinine (U) [Mass/Vol] 68.50 mg/dL NO RANGE EST. [facility] Urine protein measurement (m ass/volume)Ordered By: Dr. Valderrama on 04-10-2023 Protein (U) [Mass/Vol] 36.3 mg/dL 0.0-11.8 [facility] Urine protein/creatinine mas s ratioOrdered By: Dr. Valderrama on 04-10-2023 Protein/Creatinine (U) [Mass ratio] 530 mg/g CRE 0-200 [facility] Basophil percentageOrdered B y: Dr. Guardado on 02-05-2023 Chloride [Moles/Vol] 109 mmol/L 98-107 [facility] Glucose [Mass/Vol] 173 mg/dL 74-106 [facility] Comment on above: Fasting Glucose resu lt greater than or equal to 126 mg/dL suggests DIABETES MELLITUS per A.D.A. criteria. Potassium [Moles/Vol] 4.3 mmol/L 3.5-5.1 [facility] [place] Sodium [Moles/Vol] 139 mmol/L 136-145 [facility] Laboratory - Chemistry and C hemistry - challengeOrdered By: Dr. Guardado on 02-05-2023 CO2 [Moles/Vol] 21.0 mmol/L 21.0-32.0 [facility] Urea nitrogen/Creatinine [Mass ratio] 16.5 mg/mg 10-20 [facility] No Panel InformationOrdered By: Dr. Guardado on 02-05-2023 Estimated GFR (MDRD) Amer 30 mL/min >60 [facility] Comment on above: GFR Calc Estimated GFR (MDRD) Non-Af Amer 25 mL/min >60 [facility] Comment on above: Non- GFR Calc Serum or plasma calcium carl urement (mass/volume)Ordered By: Dr. Guardado on 02-05-2023 Calcium [Mass/Vol] 11.8 mg/dL 8.5-10.1 [facility] Serum or plasma creatinine m easurement (mass/volume)Ordered By: Dr. Guardado on 02-05-2023 Creatinine [Mass/Vol] 3.10 mg/dL 0.70-1.30 [facility] [place] Comment on above: The validity of the calculated GFR & GFRAA in patients over 70 years has not been determined. Clinical correlation is essential. Serum or plasma urea nitroge n measurement (mass/volume)Ordered By: Dr. Guardado on 02-05-2023 Urea nitrogen [Mass/Vol] 51 mg/dL 7-18 [facility] Thin prep Papanicolaou smear with manual screeningOrdered By: Dr. Guardado on 02-05-2023 Thin prep Papanicolaou smear with manual screening 9 5-15 [facility] Basophil percentageOrdered B y: Dr. Guarddao on 01-28-2023 Chloride [Moles/Vol] 110 mmol/L 98-107 [facility] Glucose [Mass/Vol] 129 mg/dL 74-106 [facility] Comment on above: Fasting Glucose resu lt greater than or equal to 126 mg/dL suggests DIABETES MELLITUS per A.D.A. criteria. Potassium [Moles/Vol] 4.1 mmol/L 3.5-5.1 [facility] [place] Comment on above: Slight Hemolysis, Re sult may be falsely increased. Sodium [Moles/Vol] 140 mmol/L 136-145 [facility] Laboratory - Chemistry and C hemistry - challengeOrdered By: Dr. Guardado on 01-28-2023 CO2 [Moles/Vol] 21.0 mmol/L 21.0-32.0 [facility] Urea nitrogen/Creatinine [Mass ratio] 19.4 mg/mg 10-20 [facility] No Panel InformationOrdered By: Dr. Guardado on 01-28-2023 Estimated GFR (MDRD) Amer 39 mL/min >60 [facility] Comment on above: GFR Calc Estimated GFR (MDRD) Non-Af Amer 32 mL/min >60 [facility] Comment on above: Non- GFR Calc Ionized Calcium 6.1 mg/dL 4.5-5.6 [facility] Comment on above: Performed at: - [address] [id number] Director: Juan Ramon Maxwell PhD, Phone: [phone] Parathyroid Hormone (Intact) 10.3 pg/mL 18.4-80.1 [facility] Serum or plasma calcium carl urement (mass/volume)Ordered By: Dr. Guardado on 01-28-2023 Calcium [Mass/Vol] 11.3 mg/dL 8.5-10.1 [facility] Serum or plasma creatinine m easurement (mass/volume)Ordered By: Dr. Guardado on 01-28-2023 Creatinine [Mass/Vol] 2.47 mg/dL 0.70-1.30 [facility] [place] Comment on above: The validity of the calculated GFR & GFRAA in patients over 70 years has not been determined. Clinical correlation is essential. Serum or plasma urea nitroge n measurement (mass/volume)Ordered By: Dr. Guardado on 01-28-2023 Urea nitrogen [Mass/Vol] 48 mg/dL 7-18 [facility] Thin prep Papanicolaou smear with manual screeningOrdered By: Dr. Guardado on 01-28-2023 Thin prep Papanicolaou smear with manual screening 9 5-15 [facility] Absolute lymphocyte countOrd ered By: Dr. Guardado on 01-23-2023 Lymphocytes Auto (Unsp spec) [#/Vol] 0.88 10*3/uL 0.83-4.51 [facility] Basophil percentageOrdered B y: Dr. Guardado on 01-23-2023 Basophil percentage 3.7 mg/dL 2.5-4.9 [facility] Basophils/100 WBC (Bld) 0.8 % 0-1 [facility] Bilirubin [Mass/Vol] 0.30 mg/dL 0.20-1.00 [facility] Comment on above: For patients on eltr ombopag therapy, use of Dimension Oolitic TBIL is not recommended. Chloride [Moles/Vol] 106 mmol/L 98-107 [facility] Cholesterol [Mass/Vol] 137 mg/dL <200 [facility] Comment on above: <200 mg/dL Desirable 200-240 mg/dL Borderline >240 mg/dL High Risk Eosinophils/100 WBC (Bld) 6.4 % 0-5 [facility] Glucose [Mass/Vol] 145 mg/dL 74-106 [facility] Comment on above: Fasting Glucose resu lt greater than or equal to 126 mg/dL suggests DIABETES MELLITUS per A.D.A. criteria. Neutrophils (Bld) [#/Vol] 4.2 10*3/uL 2.0-7.7 [facility] Neutrophils/100 WBC (Bld) 70.3 % 47-70 [facility] Potassium [Moles/Vol] 4.0 mmol/L 3.5-5.1 [facility] [place] Protein [Mass/Vol] 7.3 g/dL 6.4-8.2 [facility] Sodium [Moles/Vol] 136 mmol/L 136-145 [facility] Triglyceride [Mass/Vol] 329 mg/dL <199 [facility] Comment on above: The drugs N-Acetylcy steine and Metamizole may falsely depress this assay.Serum Triglycerides Reference Interval Normal <150 mg/dL Borderline high 150 - 199 mg/dL High 200 - 499 mg/dL Very High > or = 500 mg/dL WBC (Bld) [#/Vol] 5.9 10*3/uL 4.4-11.0 [facility] Blood erythrocytes count (nu mber/volume)Ordered By: Dr. Guardado on 01-23-2023 RBC (Bld) [#/Vol] 5.22 10*6/uL 4.6-6.2 [facility] Blood hemoglobin measurement (mass/volume)Ordered By: Dr. Guardado on 01-23-2023 Hemoglobin (Bld) [Mass/Vol] 15.4 g/dL 13.0-16.5 [facility] Blood lymphocytes/100 leukoc ytesOrdered By: Dr. Guardado on 01-23-2023 Lymphocytes/100 WBC (Bld) 14.9 % 19-41 [facility] Blood monocytes/100 leukocyt esOrdered By: Dr. Guardado on 01-23-2023 Monocytes/100 WBC (Bld) 7.3 % 0-10 [facility] Blood platelet mean volumeOr dered By: Dr. Guardado on 01-23-2023 Platelet mean volume (Bld) [Entitic vol] 9.1 fL 6.2-12.0 [facility] Determination of erythrocyte mean corpuscular volume (MCV)Ordered By: Dr. Guardado on 01-23-2023 MCV (RBC) [Entitic vol] 87.4 fL 80-94 [facility] Hematocrit Auto (Bld) [Volum e fraction]Ordered By: Dr. Guardado on 01-23-2023 Hematocrit (Bld) [Volume fraction] 45.6 % 40-54 [facility] Laboratory - Chemistry and C hemistry - challengeOrdered By: Dr. Guardado on 01-23-2023 ALP [Catalytic activity/Vol] 126 U/L 45-117 [facility] ALT [Catalytic activity/Vol] 32 U/L 16-61 [facility] CO2 [Moles/Vol] 20.0 mmol/L 21.0-32.0 [facility] Globulin (S) [Mass/Vol] 3.7 g/dL 2.2-4.2 [facility] Urea nitrogen/Creatinine [Mass ratio] 17.8 mg/mg 10-20 [facility] Laboratory - Hematology and Cell countsOrdered By: Dr. Guardado on 01-23-2023 Erythrocyte distribution width (RBC) [Entitic vol] 42.7 fL 35.1-43.9 [facility] Erythrocyte distribution width (RBC) [Ratio] 13.4 % 11.6-14.6 [facility] Immature granulocytes/100 WBC (Bld) 0.300 % 0.0-0.9 [facility] Comment on above: IG% - Immature Granu locytes (promyelocytes, myelocytes and metamyelocytes) > 1% indicates that a LEFT SHIFT is Present. MCH (RBC) [Entitic mass] 29.5 pg 27.0-32.0 [facility] Nucleated RBC/100 WBC (Bld) [Ratio] 0 % 0-5 [facility] MCHC Auto (RBC) [Mass/Vol]Or dered By: Dr. Guardado on 01-23-2023 MCHC (RBC) [Mass/Vol] 33.8 g/dL 32-36 [facility] No Panel InformationOrdered By: Dr. Guardado on 01-23-2023 Estimated GFR (MDRD) Amer 33 mL/min >60 [facility] Comment on above: GFR Calc Estimated GFR (MDRD) Non-Af Amer 27 mL/min >60 [facility] Comment on above: Non- GFR Calc Urine Microalbumin/Creatinine Ratio 310.6 mg/g CRE <30 [facility] Vitamin D 25-Hydroxy 43.0 ng/mL [facility] Comment on above: Vitamin D 25(OH) Sta tus Range Deficiency <20 ng/mL (50nmol/L) Insufficiency 20 - 30 ng/mL (50 - 75 nmol/L) Sufficiency 30 - 100 ng/mL (75 - 250 nmol/L) Toxicity >100 ng/mL (>250 nmol/L) Platelets bldOrdered By: Dr. Guardado on 01-23-2023 Platelets (Bld) [#/Vol] 202 10*3/uL 150-450 [facility] Serum or plasma albumin carl urement (mass/volume)Ordered By: Dr. Guardado on 01-23-2023 Albumin [Mass/Vol] 3.6 g/dL 3.2-5.0 [facility] Serum or plasma albumin/glob ulin mass ratioOrdered By: Dr. Guardado on 01-23-2023 Albumin/Globulin [Mass ratio] 1.0 {ratio} 0.9-2.4 [facility] Serum or plasma calcium carl urement (mass/volume)Ordered By: Dr. Guardado on 01-23-2023 Calcium [Mass/Vol] 11.1 mg/dL 8.5-10.1 [facility] Serum or plasma cholesterol in HDL measurement (mass/volume)Ordered By: Dr. Guardado on 01-23-2023 Cholesterol in HDL [Mass/Vol] 33 mg/dL >40 [facility] Comment on above: The drugs N-Acetylcy steine and Metamizole may falsely depress this assay. Reference Range HDL <40 mg/dL Low HDL Cholesterol HDL >or= 60 mg/dL High HDL Cholesterol Serum or plasma cholesterol in VLDL measurement (mass/volume)Ordered By: Dr. Guardado on 01-23-2023 Cholesterol in VLDL [Mass/Vol] 66 mg/dL 5-40 [facility] Serum or plasma creatinine m easurement (mass/volume)Ordered By: Dr. Guardado on 01-23-2023 Creatinine [Mass/Vol] 2.86 mg/dL 0.70-1.30 [facility] [place] Comment on above: The validity of the calculated GFR & GFRAA in patients over 70 years has not been determined. Clinical correlation is essential. Serum or plasma low density lipoprotein (LDL) cholesterol measurement (mass/volume)Ordered By: Dr. Guardado on 01-23-2023 Cholesterol in LDL [Mass/Vol] 38 mg/dL 0-130 [facility] Serum or plasma urea nitroge n measurement (mass/volume)Ordered By: Dr. Guardado on 01-23-2023 Urea nitrogen [Mass/Vol] 51 mg/dL 7-18 [facility] [facility] Thin prep Papanicolaou smear with manual screeningOrdered By: Dr. Guardado on 01-23-2023 Thin prep Papanicolaou smear with manual screening 23 U/L 15-37 [facility] Thin prep Papanicolaou smear with manual screening 10 5-15 [facility] Thin prep Papanicolaou smear with manual screening 246.0 mg/L NO RANGE EST. [facility] Urine creatinine measurement (mass/volume)Ordered By: Dr. Guardado on 01-23-2023 Creatinine (U) [Mass/Vol] 79.20 mg/dL NO RANGE EST. [facility] Urine protein measurement (m ass/volume)Ordered By: Dr. Guardado on 01-23-2023 Protein (U) [Mass/Vol] 39.8 mg/dL 0.0-11.8 [facility] Urine protein/creatinine mas s ratioOrdered By: Dr. Guaraddo on 01-23-2023 Protein/Creatinine (U) [Mass ratio] 503 mg/g CRE 0-200 [facility] Whole blood hemoglobin A1c/t otal hemoglobin ratio (mass fraction)Ordered By: Dr. Guardado on 01-23-2023 HbA1c (Bld) [Mass fraction] 5.4 % 3.8-5.6 [facility] Comment on above: Normal < 5.7 % Predi abetic 5.7 - 6.4 % Diabetic >or= 6.5 % Please note range changes. Basophil percentageOrdered B y: Dr. Valderrama on 10-17-2022 Basophil percentage 0 SEEN /hpf 0-5 [facility] Basophil percentage 3.7 mg/dL 2.5-4.9 [facility] Chloride [Moles/Vol] 106 mmol/L 98-107 [facility] Glucose [Mass/Vol] 137 mg/dL 74-106 [facility] Comment on above: Fasting Glucose resu lt greater than or equal to 126 mg/dL suggests DIABETES MELLITUS per A.D.A. criteria. Potassium [Moles/Vol] 4.2 mmol/L 3.5-5.1 [facility] [place] Sodium [Moles/Vol] 138 mmol/L 136-145 [facility] WBC (Bld) [#/Vol] 6.7 10*3/uL 4.4-11.0 [facility] Bilirubin Test strip Ql (U)O rdered By: Dr. Valderrama on 10-17-2022 Bilirubin Ql (U) Negative Negative [facility] Blood erythrocytes count (nu mber/volume)Ordered By: Dr. Valderrama on 10-17-2022 RBC (Bld) [#/Vol] 4.84 10*6/uL 4.6-6.2 [facility] Blood hemoglobin measurement (mass/volume)Ordered By: Dr. Valderrama on 10-17-2022 Hemoglobin (Bld) [Mass/Vol] 14.2 g/dL 13.0-16.5 [facility] Blood platelet mean volumeOr dered By: Dr. Valderrama on 10-17-2022 Platelet mean volume (Bld) [Entitic vol] 9.0 fL 6.2-12.0 [facility] Determination of erythrocyte mean corpuscular volume (MCV)Ordered By: Dr. Valderrama on 10-17-2022 MCV (RBC) [Entitic vol] 89.5 fL 80-94 [facility] Hematocrit Auto (Bld) [Volum e fraction]Ordered By: Dr. Valderrama on 10-17-2022 Hematocrit (Bld) [Volume fraction] 43.3 % 40-54 [facility] Ketones Test strip Ql (U)Ord ered By: Dr. Valderrama on 10-17-2022 Ketones Ql (U) Negative Negative [facility] Laboratory - Chemistry and C hemistry - challengeOrdered By: Dr. Valderrama on 10-17-2022 CO2 [Moles/Vol] 21.0 mmol/L 21.0-32.0 [facility] Urea nitrogen/Creatinine [Mass ratio] 17.8 mg/mg 10-20 [facility] Laboratory - Hematology and Cell countsOrdered By: Dr. Valderrama on 10-17-2022 Erythrocyte distribution width (RBC) [Entitic vol] 44.3 fL 35.1-43.9 [facility] Erythrocyte distribution width (RBC) [Ratio] 13.9 % 11.6-14.6 [facility] MCH (RBC) [Entitic mass] 29.3 pg 27.0-32.0 [facility] MCHC Auto (RBC) [Mass/Vol]Or dered By: Dr. Valderrama on 10-17-2022 MCHC (RBC) [Mass/Vol] 32.8 g/dL 32-36 [facility] [place] Mucus LM Ql (Urine sed)Order ed By: Dr. Valderrama on 10-17-2022 Mucus Ql (Urine sed) 0 SEEN /hpf [facility] Nitrite Test strip Ql (U)Ord ered By: Dr. Valderrama on 10-17-2022 Nitrite Ql (U) Negative Negative [facility] No Panel InformationOrdered By: Dr. Valderrama on 10-17-2022 Estimated GFR (MDRD) Amer 37 mL/min >60 [facility] Comment on above: GFR Calc Estimated GFR (MDRD) Non-Af Amer 31 mL/min >60 [facility] Comment on above: Non- GFR Calc Parathyroid Hormone (Intact) 18.3 pg/mL 18.4-80.1 [facility] Vitamin D 25-Hydroxy 44.7 ng/mL [facility] Comment on above: Vitamin D 25(OH) Sta tus Range Deficiency <20 ng/mL (50nmol/L) Insufficiency 20 - 30 ng/mL (50 - 75 nmol/L) Sufficiency 30 - 100 ng/mL (75 - 250 nmol/L) Toxicity >100 ng/mL (>250 nmol/L) Platelets bldOrdered By: Dr. Valderrama on 10-17-2022 Platelets (Bld) [#/Vol] 207 10*3/uL 150-450 [facility] Protein Test strip Ql (U)Ord ered By: Dr. Valderrama on 10-17-2022 Protein Ql (U) 30 mg/dl Negative [facility] Serum or plasma albumin carl urement (mass/volume)Ordered By: Dr. Valderrama on 10-17-2022 Albumin [Mass/Vol] 3.5 g/dL 3.2-5.0 [facility] Serum or plasma calcium carl urement (mass/volume)Ordered By: Dr. Valderrama on 10-17-2022 Calcium [Mass/Vol] 9.7 mg/dL 8.5-10.1 [facility] Serum or plasma creatinine m easurement (mass/volume)Ordered By: Dr. Valderrama on 10-17-2022 Creatinine [Mass/Vol] 2.59 mg/dL 0.70-1.30 [facility] [place] Comment on above: The validity of the calculated GFR & GFRAA in patients over 70 years has not been determined. Clinical correlation is essential. Serum or plasma urea nitroge n measurement (mass/volume)Ordered By: Dr. Valderrama on 10-17-2022 Urea nitrogen [Mass/Vol] 46 mg/dL 7-18 [facility] Squamous epithelial cells de tection in urine sediment by light microscopyOrdered By: Dr. Valderrama on 10-17-2022 Epithelial cells.squamous LM Ql (Urine sed) 0-5 SEEN /hpf 0-5 [facility] Urine blood detectionOrdered By: Dr. Valderrama on 10-17-2022 RBC Ql (U) Negative Negative [facility] RBC Ql (U) 0 SEEN /hpf 0-5 [facility] Urine clarityOrdered By: Dr. Valderrama on 10-17-2022 Clarity (U) Sl. Cloudy Clear [facility] Urine color determinationOrd ered By: Dr. Valderrama on 10-17-2022 Color (U) Yellow Yellow [facility] Urine creatinine measurement (mass/volume)Ordered By: Dr. Valderrama on 10-17-2022 Creatinine (U) [Mass/Vol] 71.10 mg/dL NO RANGE EST. [facility] Urine glucose detectionOrder ed By: Dr. Valderrama on 10-17-2022 Glucose Ql (U) 1000 mg/dl Normal [facility] Urine leukocyte esterase det ection by dipstickOrdered By: Dr. Valderrama on 10-17-2022 Leukocyte esterase Test strip Ql (U) Negative Negative [facility] Urine pHOrdered By: Dr. Suleman garcia on 10-17-2022 pH (U) 6.0 [pH] 5.0 - 8.0 [facility] Urine protein measurement (m ass/volume)Ordered By: Dr. Valderrama on 10-17-2022 Protein (U) [Mass/Vol] 55.2 mg/dL 0.0-11.8 [facility] Urine protein/creatinine mas s ratioOrdered By: Dr. Valderrama on 10-17-2022 Protein/Creatinine (U) [Mass ratio] 776 mg/g CRE 0-200 [facility] Urine sediment bacteria coun t by microscopy (number/high power field)Ordered By: Dr. Valderrama on 10-17-2022 Bacteria LM.HPF (Urine sed) [#/Area] 0 /[HPF] None Seen [facility] Urine specific gravity measu rementOrdered By: Dr. Valderrama on 10-17-2022 Specific gravity (U) [Rel density] 1.020 1.002-1.030 [facility] Urobilinogen Auto test strip Ql (U)Ordered By: Dr. Valderrama on 10-17-2022 Urobilinogen Ql (U) Normal mg/dl Normal [facility] [place] Basophil percentageon 2021 Bilirubin [Mass/Vol] 0.20 mg/dL 0.20-1.00 [facility] Work Phone: Comment on above: For patients on eltr ombopag therapy, use of Dimension Oolitic TBIL is not recommended. Chloride [Moles/Vol] 106 mmol/L 98-107 [facility] Work Phone: Cholesterol [Mass/Vol] 130 mg/dL <200 [facility] Work Phone: Comment on above: <200 mg/dL Desirable 200-240 mg/dL Borderline >240 mg/dL High Risk Glucose [Mass/Vol] 124 mg/dL 74-106 [facility] Work Phone: Comment on above: Fasting Glucose resu lt from 100 to 125 mg/dL suggests IMPAIRED HOMEOSTASIS per A.D.A. criteria. Potassium [Moles/Vol] 4.0 mmol/L 3.5-5.1 [facility] [place] Work Phone: Protein [Mass/Vol] 7.8 g/dL 6.4-8.2 [facility] Work Phone: Sodium [Moles/Vol] 136 mmol/L 136-145 [facility] Work Phone: Triglyceride [Mass/Vol] 300 mg/dL <199 [facility] Work Phone: Comment on above: The drugs N-Acetylcy steine and Metamizole may falsely depress this assay.Serum Triglycerides Reference Interval Normal <150 mg/dL Borderline high 150 - 199 mg/dL High 200 - 499 mg/dL Very High > or = 500 mg/dL WBC (Bld) [#/Vol] 5.9 10*3/uL 4.4-11.0 [facility] Work Phone: Blood erythrocytes count (nu mber/volume)on 09-17-2022 RBC (Bld) [#/Vol] 4.98 10*6/uL 4.6-6.2 [facility] Work Phone: Blood hemoglobin measurement (mass/volume)on 09-17-2022 Hemoglobin (Bld) [Mass/Vol] 15.0 g/dL 13.0-16.5 [facility] Work Phone: Blood platelet mean volumeon 09-17-2022 Platelet mean volume (Bld) [Entitic vol] 8.9 fL 6.2-12.0 [facility] Work Phone: Determination of erythrocyte mean corpuscular volume (MCV)on 09-17-2022 MCV (RBC) [Entitic vol] 87.6 fL 80-94 [facility] Work Phone: Hematocrit Auto (Bld) [Volum e fraction]on 09-17-2022 Hematocrit (Bld) [Volume fraction] 43.6 % 40-54 [facility] Work Phone: Laboratory - Chemistry and C hemistry - challengeon 09-17-2022 ALP [Catalytic activity/Vol] 146 U/L 45-117 [facility] Work Phone: ALT [Catalytic activity/Vol] 35 U/L 16-61 [facility] Work Phone: CO2 [Moles/Vol] 23.0 mmol/L 21.0-32.0 [facility] Work Phone: Globulin (S) [Mass/Vol] 4.0 g/dL 2.2-4.2 [facility] Work Phone: Urea nitrogen/Creatinine [Mass ratio] 16.3 mg/mg 10-20 [facility] Work Phone: Laboratory - Hematology and Cell countson 09-17-2022 Erythrocyte distribution width (RBC) [Entitic vol] 43.8 fL 35.1-43.9 [facility] Work Phone: Erythrocyte distribution width (RBC) [Ratio] 13.8 % 11.6-14.6 [facility] Work Phone: MCH (RBC) [Entitic mass] 30.1 pg 27.0-32.0 [facility] Work Phone: MCHC Auto (RBC) [Mass/Vol]on 09-17-2022 MCHC (RBC) [Mass/Vol] 34.4 g/dL 32-36 [facility]: No Panel Informationon 09-17 Estimated GFR (MDRD) Amer 36 mL/min >60 [facility] Work Phone: Comment on above: GFR Calc Estimated GFR (MDRD) Non-Af Amer 30 mL/min >60 [facility] Work Phone: Comment on above: Non- GFR Calc Platelets bldon 09-17-2022 Platelets (Bld) [#/Vol] 204 10*3/uL 150-450 [facility] Work Phone: Serum or plasma albumin carl urement (mass/volume)on 09-17-2022 Albumin [Mass/Vol] 3.8 g/dL 3.2-5.0 [facility] Work Phone: Serum or plasma albumin/glob ulin mass ratioon 09-17-2022 Albumin/Globulin [Mass ratio] 1.0 {ratio} 0.9-2.4 [facility] Work Phone: Serum or plasma calcium carl urement (mass/volume)on 09-17-2022 Calcium [Mass/Vol] 10.0 mg/dL 8.5-10.1 [facility] Work Phone: Serum or plasma cholesterol in HDL measurement (mass/volume)on 09-17-2022 Cholesterol in HDL [Mass/Vol] 38 mg/dL >40 [facility] Work Phone: Comment on above: The drugs N-Acetylcy steine and Metamizole may falsely depress this assay. Reference Range HDL <40 mg/dL Low HDL Cholesterol HDL >or= 60 mg/dL High HDL Cholesterol Serum or plasma cholesterol in VLDL measurement (mass/volume)on 09-17-2022 Cholesterol in VLDL [Mass/Vol] 60 mg/dL 5-40 [facility] Work Phone: Serum or plasma creatinine m easurement (mass/volume)on 09-17-2022 Creatinine [Mass/Vol] 2.64 mg/dL 0.70-1.30 [facility] [place] Work Phone: Comment on above: The validity of the calculated GFR & GFRAA in patients over 70 years has not been determined. Clinical correlation is essential. Serum or plasma low density lipoprotein (LDL) cholesterol measurement (mass/volume)on 09-17-2022 Cholesterol in LDL [Mass/Vol] 32 mg/dL 0-130 [facility] Work Phone: Serum or plasma urea nitroge n measurement (mass/volume)on 09-17-2022 Urea nitrogen [Mass/Vol] 43 mg/dL 7-18 [facility] Work Phone: Thin prep Papanicolaou smear with manual screeningon 09-17-2022 Thin prep Papanicolaou smear with manual screening 21 U/L 15-37 [facility] Work Phone: Thin prep Papanicolaou smear with manual screening 7 5-15 [facility] Work Phone: Whole blood hemoglobin A1c/t otal hemoglobin ratio (mass fraction)on 09-17-2022 HbA1c (Bld) [Mass fraction] 5.7 % 3.8-5.6 [facility] Work Phone: Comment on above: Normal < 5.7 % Predi abetic 5.7 - 6.4 % Diabetic >or= 6.5 % Please note range changes. Absolute lymphocyte counton 08-02-2022 Lymphocytes Auto (Unsp spec) [#/Vol] 1.05 10*3/uL 0.83-4.51 [facility] Work Phone: Basophil percentageon 2021 Basophils/100 WBC (Bld) 0.8 % 0-1 [facility] Work Phone: Bilirubin [Mass/Vol] 0.30 mg/dL 0.20-1.00 [facility] Work Phone: Comment on above: For patients on eltr ombopag therapy, use of Dimension Oolitic TBIL is not recommended. Chloride [Moles/Vol] 108 mmol/L 98-107 [facility] Work Phone: Cholesterol [Mass/Vol] 128 mg/dL <200 [facility] Work Phone: Comment on above: <200 mg/dL Desirable 200-240 mg/dL Borderline >240 mg/dL High Risk Eosinophils/100 WBC (Bld) 5.7 % 0-5 [facility] Work Phone: Glucose [Mass/Vol] 98 mg/dL 74-106 [facility] Work Phone: Neutrophils (Bld) [#/Vol] 5.2 10*3/uL 2.0-7.7 [facility] Work Phone: Neutrophils/100 WBC (Bld) 70.2 % 47-70 [facility] Work Phone: Potassium [Moles/Vol] 4.5 mmol/L 3.5-5.1 [facility] [place] Work Phone: Protein [Mass/Vol] 7.6 g/dL 6.4-8.2 [facility] Work Phone: Sodium [Moles/Vol] 137 mmol/L 136-145 [facility] Work Phone: Triglyceride [Mass/Vol] 264 mg/dL <199 [facility] Work Phone: Comment on above: The drugs N-Acetylcy steine and Metamizole may falsely depress this assay.Serum Triglycerides Reference Interval Normal <150 mg/dL Borderline high 150 - 199 mg/dL High 200 - 499 mg/dL Very High > or = 500 mg/dL WBC (Bld) [#/Vol] 7.4 10*3/uL 4.4-11.0 [facility] Work Phone: Blood erythrocytes count (nu mber/volume)on 08-02-2022 RBC (Bld) [#/Vol] 4.53 10*6/uL 4.6-6.2 [facility] Work Phone: Blood hemoglobin measurement (mass/volume)on 08-02-2022 Hemoglobin (Bld) [Mass/Vol] 13.5 g/dL 13.0-16.5 [facility] Work Phone: Blood lymphocytes/100 leukoc yteson 08-02-2022 Lymphocytes/100 WBC (Bld) 14.3 % 19-41 [facility] Work Phone: Blood monocytes/100 leukocyt eson 08-02-2022 Monocytes/100 WBC (Bld) 8.7 % 0-10 [facility] Work Phone: Blood platelet mean volumeon 08-02-2022 Platelet mean volume (Bld) [Entitic vol] 9.2 fL 6.2-12.0 [facility] Work Phone: Determination of erythrocyte mean corpuscular volume (MCV)on 08-02-2022 MCV (RBC) [Entitic vol] 89.0 fL 80-94 [facility] Work Phone: Hematocrit Auto (Bld) [Volum e fraction]on 08-02-2022 Hematocrit (Bld) [Volume fraction] 40.3 % 40-54 [facility] Work Phone: Laboratory - Chemistry and C hemistry - challengeon 08-02-2022 ALP [Catalytic activity/Vol] 140 U/L 45-117 [facility] Work Phone: ALT [Catalytic activity/Vol] 41 U/L 16-61 [facility] Work Phone: CO2 [Moles/Vol] 20.0 mmol/L 21.0-32.0 [facility] Work Phone: Globulin (S) [Mass/Vol] 4.1 g/dL 2.2-4.2 [facility] Work Phone: Urea nitrogen/Creatinine [Mass ratio] 23.4 mg/mg 10-20 [facility] Work Phone: Laboratory - Hematology and Cell countson 08-02-2022 Erythrocyte distribution width (RBC) [Entitic vol] 46.5 fL 35.1-43.9 [facility] Work Phone: Erythrocyte distribution width (RBC) [Ratio] 14.6 % 11.6-14.6 [facility] Work Phone: Immature granulocytes/100 WBC (Bld) 0.300 % 0.0-0.9 [facility] Work Phone: Comment on above: IG% - Immature Granu locytes (promyelocytes, myelocytes and metamyelocytes) > 1% indicates that a LEFT SHIFT is Present. MCH (RBC) [Entitic mass] 29.8 pg 27.0-32.0 [facility] Work Phone: Nucleated RBC/100 WBC (Bld) [Ratio] 0 % 0-5 [facility] Work Phone: MCHC Auto (RBC) [Mass/Vol]on 08-02-2022 MCHC (RBC) [Mass/Vol] 33.5 g/dL 32-36 [facility] [place] Work Phone: No Panel Informationon 08-02 Estimated GFR (MDRD) Amer 42 mL/min >60 [facility] Work Phone: Comment on above: GFR Calc Estimated GFR (MDRD) Non-Af Amer 35 mL/min >60 [facility] Work Phone: Comment on above: Non- GFR Calc Vitamin D 25-Hydroxy 46.8 ng/mL [facility] Work Phone: Comment on above: Vitamin D 25(OH) Sta tus Range Deficiency <20 ng/mL (50nmol/L) Insufficiency 20 - 30 ng/mL (50 - 75 nmol/L) Sufficiency 30 - 100 ng/mL (75 - 250 nmol/L) Toxicity >100 ng/mL (>250 nmol/L) Platelets bldon 08-02-2022 Platelets (Bld) [#/Vol] 219 10*3/uL 150-450 [facility] Work Phone: Serum or plasma albumin carl urement (mass/volume)on 08-02-2022 Albumin [Mass/Vol] 3.5 g/dL 3.2-5.0 [facility] Work Phone: Serum or plasma albumin/glob ulin mass ratioon 08-02-2022 Albumin/Globulin [Mass ratio] 0.9 {ratio} 0.9-2.4 [facility] Work Phone: Serum or plasma calcium carl urement (mass/volume)on 08-02-2022 Calcium [Mass/Vol] 9.7 mg/dL 8.5-10.1 [facility] Work Phone: Serum or plasma cholesterol in HDL measurement (mass/volume)on 08-02-2022 Cholesterol in HDL [Mass/Vol] 34 mg/dL >40 [facility] Work Phone: Comment on above: The drugs N-Acetylcy steine and Metamizole may falsely depress this assay. Reference Range HDL <40 mg/dL Low HDL Cholesterol HDL >or= 60 mg/dL High HDL Cholesterol Serum or plasma cholesterol in VLDL measurement (mass/volume)on 08-02-2022 Cholesterol in VLDL [Mass/Vol] 53 mg/dL 5-40 [facility] Work Phone: Serum or plasma creatinine m easurement (mass/volume)on 08-02-2022 Creatinine [Mass/Vol] 2.31 mg/dL 0.70-1.30 [facility] [place] Work Phone: Comment on above: The validity of the calculated GFR & GFRAA in patients over 70 years has not been determined. Clinical correlation is essential. Serum or plasma low density lipoprotein (LDL) cholesterol measurement (mass/volume)on 08-02-2022 Cholesterol in LDL [Mass/Vol] 41 mg/dL 0-130 [facility] Work Phone: Serum or plasma urea nitroge n measurement (mass/volume)on 08-02-2022 Urea nitrogen [Mass/Vol] 54 mg/dL 7-18 [facility] Work Phone: Thin prep Papanicolaou smear with manual screeningon 08-02-2022 Thin prep Papanicolaou smear with manual screening 20 U/L 15-37 [facility] Work Phone: Thin prep Papanicolaou smear with manual screening 9 5-15 [facility] Work Phone: Whole blood hemoglobin A1c/t otal hemoglobin ratio (mass fraction)on 08-02-2022 HbA1c (Bld) [Mass fraction] 6.6 % 3.8-5.6 [facility] Work Phone: Comment on above: Normal < 5.7 % Predi abetic 5.7 - 6.4 % Diabetic >or= 6.5 % Please note range changes. Basophil percentageon 2021 Basophil percentage 10-25 SEEN /hpf 0-5 [facility] Work Phone: Bilirubin Test strip Ql (U)o n 07-08-2022 Bilirubin Ql (U) Negative Negative [facility] Work Phone: Ketones Test strip Ql (U)on 07-08-2022 Ketones Ql (U) Negative Negative [facility] Work Phone: Mucus LM Ql (Urine sed)on Mucus Ql (Urine sed) 0 SEEN /hpf [facility] [place] Work Phone: Nitrite Test strip Ql (U)on 07-08-2022 Nitrite Ql (U) Positive Negative [facility] Work Phone: Protein Test strip Ql (U)on 07-08-2022 Protein Ql (U) 100 mg/dl Negative [facility] Work Phone: Squamous epithelial cells de tection in urine sediment by light microscopyon 07-08-2022 Epithelial cells.squamous LM Ql (Urine sed) 0 SEEN /hpf 0-5 [facility] Work Phone: Urine blood detectionon 06-18 RBC Ql (U) Negative Negative [facility] Work Phone: RBC Ql (U) 0 SEEN /hpf 0-5 [facility] Work Phone: Urine clarityon 07-08-2022 Clarity (U) Clear Clear [facility] Work Phone: Urine color determinationon 07-08-2022 Color (U) Straw Yellow [facility] Work Phone: Urine glucose detectionon Glucose Ql (U) 1000 mg/dl Normal [facility] Work Phone: Urine leukocyte esterase det ection by dipstickon 07-08-2022 Leukocyte esterase Test strip Ql (U) 500 /ul Negative [facility] Work Phone: Urine pHon 07-08-2022 pH (U) 6.0 [pH] 5.0 - 8.0 [facility] Work Phone: Urine sediment bacteria coun t by microscopy (number/high power field)on 07-08-2022 Bacteria LM.HPF (Urine sed) [#/Area] 0 /[HPF] None Seen [facility] Work Phone: Urine specific gravity measu rementon 07-08-2022 Specific gravity (U) [Rel density] 1.015 1.002-1.030 [facility] Work Phone: Urobilinogen Auto test strip Ql (U)on 07-08-2022 Urobilinogen Ql (U) Normal mg/dl Normal [facility] [place] Work Phone: Basophil percentageon 2021 Bilirubin [Mass/Vol] 0.30 mg/dL 0.20-1.00 [facility] Work Phone: Comment on above: For patients on eltr ombopag therapy, use of Dimension Oolitic TBIL is not recommended. Chloride [Moles/Vol] 104 mmol/L 98-107 [facility] Work Phone: Glucose [Mass/Vol] 128 mg/dL 74-106 [facility] Work Phone: Comment on above: Fasting Glucose resu lt greater than or equal to 126 mg/dL suggests DIABETES MELLITUS per A.D.A. criteria. Potassium [Moles/Vol] 4.6 mmol/L 3.5-5.1 [facility] Work Phone: Protein [Mass/Vol] 6.8 g/dL 6.4-8.2 [facility] Work Phone: Sodium [Moles/Vol] 136 mmol/L 136-145 [facility] Work Phone: Laboratory - Chemistry and C hemistry - challengeon 06-19-2022 ALP [Catalytic activity/Vol] 141 U/L 45-117 [facility] Work Phone: ALT [Catalytic activity/Vol] 83 U/L 16-61 [facility] Work Phone: CO2 [Moles/Vol] 22.0 mmol/L 21.0-32.0 [facility] Work Phone: Globulin (S) [Mass/Vol] 3.4 g/dL 2.2-4.2 [facility] Work Phone: Urea nitrogen/Creatinine [Mass ratio] 18.9 mg/mg 10-20 [facility] Work Phone: No Panel Informationon 06-19 Estimated GFR (MDRD) Amer 39 mL/min >60 [facility] Work Phone: Comment on above: GFR Calc Estimated GFR (MDRD) Non-Af Amer 32 mL/min >60 [facility] Work Phone: Comment on above: Non- GFR Calc Serum or plasma albumin carl urement (mass/volume)on 06-19-2022 Albumin [Mass/Vol] 3.4 g/dL 3.2-5.0 [facility] Work Phone: Serum or plasma albumin/glob ulin mass ratioon 06-19-2022 Albumin/Globulin [Mass ratio] 1.0 {ratio} 0.9-2.4 [facility] Work Phone: Serum or plasma calcium carl urement (mass/volume)on 06-19-2022 Calcium [Mass/Vol] 10.2 mg/dL 8.5-10.1 [facility] Work Phone: Serum or plasma creatinine m easurement (mass/volume)on 06-19-2022 Creatinine [Mass/Vol] 2.49 mg/dL 0.70-1.30 [facility] [place] Work Phone: Comment on above: The validity of the calculated GFR & GFRAA in patients over 70 years has not been determined. Clinical correlation is essential. Serum or plasma urea nitroge n measurement (mass/volume)on 06-19-2022 Urea nitrogen [Mass/Vol] 47 mg/dL 7-18 [facility] Work Phone: Thin prep Papanicolaou smear with manual screeningon 06-19-2022 Thin prep Papanicolaou smear with manual screening 49 U/L 15-37 [facility] Work Phone: Thin prep Papanicolaou smear with manual screening 10 5-15 [facility] Work Phone: Absolute lymphocyte counton 06-04-2022 Lymphocytes Auto (Unsp spec) [#/Vol] 0.75 10*3/uL 0.83-4.51 [facility] Work Phone: Basophil percentageon 2021 Basophil percentage 0-5 SEEN /hpf 0-5 [facility] Work Phone: Basophils/100 WBC (Bld) 0.2 % 0-1 [facility] Work Phone: [phone] Bilirubin [Mass/Vol] 0.40 mg/dL 0.20-1.00 [facility] Work Phone: [phone] Comment on above: For patients on eltr ombopag therapy, use of Dimension [place] TBIL is not recommended. Chloride [Moles/Vol] 96 mmol/L 98-107 [facility] Work Phone: Eosinophils/100 WBC (Bld) 0.8 % 0-5 [facility] Work Phone: Glucose [Mass/Vol] 465 mg/dL 74-106 [facility] Work Phone: Comment on above: Critical Result(s) C alled at: 18:41:18 06/04/2022 by: Phani Jara to Shannon Price RN (ER). Results read back by same.Glucose result greater than or equal to 200 mg/dLsuggests DIABETES MELLITUS per A.D.A. criteria. Neutrophils (Bld) [#/Vol] 11.0 10*3/uL 2.0-7.7 [facility] Work Phone: Neutrophils/100 WBC (Bld) 83.9 % 47-70 [facility] Work Phone: Potassium [Moles/Vol] 4.0 mmol/L 3.5-5.1 [facility] [place] Work Phone: Protein [Mass/Vol] 7.7 g/dL 6.4-8.2 [facility] Work Phone: Sodium [Moles/Vol] 131 mmol/L 136-145 [facility] Work Phone: WBC (Bld) [#/Vol] 13.2 10*3/uL 4.4-11.0 [facility] Work Phone: Bilirubin Test strip Ql (U)o n 06-04-2022 Bilirubin Ql (U) Negative Negative [facility] Work Phone: Blood erythrocytes count (nu mber/volume)on 06-04-2022 RBC (Bld) [#/Vol] 5.09 10*6/uL 4.6-6.2 [facility] Work Phone: Blood hemoglobin measurement (mass/volume)on 06-04-2022 Hemoglobin (Bld) [Mass/Vol] 15.1 g/dL 13.0-16.5 [facility] Work Phone: Blood lymphocytes/100 leukoc yteson 06-04-2022 Lymphocytes/100 WBC (Bld) 5.7 % 19-41 [facility] Work Phone: Blood monocytes/100 leukocyt eson 06-04-2022 Monocytes/100 WBC (Bld) 8.9 % 0-10 [facility] Work Phone: Blood platelet mean volumeon 06-04-2022 Platelet mean volume (Bld) [Entitic vol] 9.1 fL 6.2-12.0 [facility] Work Phone: Determination of erythrocyte mean corpuscular volume (MCV)on 06-04-2022 MCV (RBC) [Entitic vol] 83.3 fL 80-94 [facility] Work Phone: GLUCOSE, BLOOD (POC)on 06-04 Glucose [Mass/Vol] 500 mg/dL Abnormal 74 - 99 mg/dL [facility] Glucose Glucometer (dC) [M ass/Vol]on 06-04-2022 Glucose [Mass/Vol] 386 mg/dL 74-106 [facility] Work Phone: Comment on above: MANAGEMENT OF PATIEN T CARE PER NURSING PROTOCOL Hematocrit Auto (Bld) [Volum e fraction]on 06-04-2022 Hematocrit (Bld) [Volume fraction] 42.4 % 40-54 [facility] Work Phone: Ketones Test strip Ql (U)on 06-04-2022 Ketones Ql (U) Negative Negative [facility] Work Phone: Laboratory - Chemistry and C hemistry - challengeon 06-04-2022 ALP [Catalytic activity/Vol] 178 U/L 45-117 [facility] Work Phone: ALT [Catalytic activity/Vol] 61 U/L 16-61 [facility] Work Phone: CO2 [Moles/Vol] 22.0 mmol/L 21.0-32.0 [facility] Work Phone: Globulin (S) [Mass/Vol] 4.1 g/dL 2.2-4.2 [facility] Work Phone: Urea nitrogen/Creatinine [Mass ratio] 18.6 mg/mg 10-20 [facility] Work Phone: Laboratory - Hematology and Cell countson 06-04-2022 Erythrocyte distribution width (RBC) [Entitic vol] 37.3 fL 35.1-43.9 [facility] Work Phone: Erythrocyte distribution width (RBC) [Ratio] 12.3 % 11.6-14.6 [facility] Work Phone: Immature granulocytes/100 WBC (Bld) 0.500 % 0.0-0.9 [facility] Work Phone: Comment on above: IG% - Immature Granu locytes (promyelocytes, myelocytes and metamyelocytes) > 1% indicates that a LEFT SHIFT is Present. MCH (RBC) [Entitic mass] 29.7 pg 27.0-32.0 [facility] Work Phone: Nucleated RBC/100 WBC (Bld) [Ratio] 0 % 0-5 [facility] Work Phone: MCHC Auto (RBC) [Mass/Vol]on 06-04-2022 MCHC (RBC) [Mass/Vol] 35.6 g/dL 32-36 [facility] [place] Work Phone: Mucus LM Ql (Urine sed)on Mucus Ql (Urine sed) 0 SEEN /hpf [facility] [place] Work Phone: Nitrite Test strip Ql (U)on 06-04-2022 Nitrite Ql (U) Negative Negative [facility] Work Phone: No Panel Informationon 06-04 Estimated Creatinine Clearance Calc 53.40 ml/min [facility] Work Phone: Estimated GFR (MDRD) Amer 45 mL/min >60 [facility] Work Phone: Comment on above: GFR Calc Estimated GFR (MDRD) Non-Af Amer 37 mL/min >60 [facility] Work Phone: Comment on above: Non- GFR Calc Troponin I High Sensitivity 4 pg/mL 3.0-78.0 [facility] Work Phone: Comment on above: Please Note: New Kelly t Units and Gender Specific Reference Ranges. For more information see Policy Stat Procedure O[place]itic High Sensitivity Troponin (TNIH) and attachments. Platelets bldon 06-04-2022 Platelets (Bld) [#/Vol] 209 10*3/uL 150-450 [facility] Work Phone: Protein Test strip Ql (U)on 06-04-2022 Protein Ql (U) 100 mg/dl Negative [facility] Work Phone: Serum or plasma acetone carl urement (mass/volume)on 06-04-2022 Acetone [Mass/Vol] Negative NEG [facility] Work Phone: Serum or plasma albumin carl urement (mass/volume)on 06-04-2022 Albumin [Mass/Vol] 3.6 g/dL 3.2-5.0 [facility] Work Phone: Serum or plasma albumin/glob ulin mass ratioon 06-04-2022 Albumin/Globulin [Mass ratio] 0.9 {ratio} 0.9-2.4 [facility] Work Phone: Serum or plasma calcium carl urement (mass/volume)on 06-04-2022 Calcium [Mass/Vol] 9.9 mg/dL 8.5-10.1 [facility] Work Phone: Serum or plasma creatinine m easurement (mass/volume)on 06-04-2022 Creatinine [Mass/Vol] 2.20 mg/dL 0.70-1.30 [facility] [place] Work Phone: Comment on above: The validity of the calculated GFR & GFRAA in patients over 70 years has not been determined. Clinical correlation is essential. Serum or plasma urea nitroge n measurement (mass/volume)on 06-04-2022 Urea nitrogen [Mass/Vol] 41 mg/dL 7-18 [facility] Work Phone: Squamous epithelial cells de tection in urine sediment by light microscopyon 06-04-2022 Epithelial cells.squamous LM Ql (Urine sed) 0 SEEN /hpf 0-5 [facility] Work Phone: Thin prep Papanicolaou smear with manual screeningon 06-04-2022 Thin prep Papanicolaou smear with manual screening 29 U/L 15-37 [facility] Work Phone: Thin prep Papanicolaou smear with manual screening 13 5-15 [facility] Work Phone: UA DIP, URINE (POC)on 2021 BILIRUBIN UA (POCT) Negative Negative [facility] CLARITY UA (POCT) Clear [facility] COLOR UA (POCT) Yellow [facility] GLUCOSE UA (POCT) 500 mg/dL Abnormal Negative mg/dL [facility] HEMOGLOBIN/BLOOD UA (POCT) Trace-intact Abnormal Negative [facility] KETONE UA (POCT) Negative Negative mg/dL [facility] LEUKOCYTES UA (POCT) Negative Negative [facility] NITRITE UA (POCT) Negative [facility] PH UA (POCT) 6.0 4.5 - 8.0 [facility] Protein Ql (U) 100 mg/dL Abnormal Negative mg/dL [facility] SPECIFIC GRAVITY UA (POCT) 1.010 1.005 - 1.030 [facility] UROBILINOGEN UA (POCT) 0.2 E.U./dL Alvina l E.U./dL [facility] Urine blood detectionon 05-17 RBC Ql (U) 10 /ul Negative [facility] Work Phone: RBC Ql (U) 0 SEEN /hpf 0-5 [facility] Work Phone: Urine clarityon 06-04-2022 Clarity (U) Clear Clear [facility] Work Phone: Urine color determinationon 06-04-2022 Color (U) Straw Yellow [facility] Work Phone: Urine glucose detectionon Glucose Ql (U) 1000 mg/dl Normal [facility] Work Phone: Urine leukocyte esterase det ection by dipstickon 06-04-2022 Leukocyte esterase Test strip Ql (U) Negative Negative [facility] Work Phone: Urine pHon 06-04-2022 pH (U) 6.0 [pH] 5.0 - 8.0 [facility] Work Phone: Urine sediment bacteria coun t by microscopy (number/high power field)on 06-04-2022 Bacteria LM.HPF (Urine sed) [#/Area] RARE /hpf None Seen [facility] Work Phone: Urine specific gravity measu rementon 06-04-2022 Specific gravity (U) [Rel density] 1.010 1.002-1.030 [facility] Work Phone: Urobilinogen Auto test strip Ql (U)on 06-04-2022 Urobilinogen Ql (U) Normal mg/dl Normal [facility] [place] Work Phone: Basophil percentageon 2021 Basophil percentage 0 SEEN /hpf 0-5 [facility] Work Phone: Bilirubin Test strip Ql (U)o n 05-09-2022 Bilirubin Ql (U) Negative Negative [facility] Work Phone: Ketones Test strip Ql (U)on 05-09-2022 Ketones Ql (U) Negative Negative [facility] Work Phone: Mucus LM Ql (Urine sed)on Mucus Ql (Urine sed) 0 SEEN /hpf [facility] [place] Work Phone: Nitrite Test strip Ql (U)on 05-09-2022 Nitrite Ql (U) Negative Negative [facility] Work Phone: Protein Test strip Ql (U)on 05-09-2022 Protein Ql (U) 100 mg/dl Negative [facility] Work Phone: Squamous epithelial cells de tection in urine sediment by light microscopyon 05-09-2022 Epithelial cells.squamous LM Ql (Urine sed) 0 SEEN /hpf 0-5 [facility] Work Phone: Urine blood detectionon 04-18 RBC Ql (U) Negative Negative [facility] Work Phone: RBC Ql (U) 0 SEEN /hpf 0-5 [facility] Work Phone: Urine clarityon 05-09-2022 Clarity (U) Clear Clear [facility] Work Phone: Urine color determinationon 05-09-2022 Color (U) Yellow Yellow [facility] Work Phone: Urine glucose detectionon Glucose Ql (U) 1000 mg/dl Normal [facility] Work Phone: Urine leukocyte esterase det ection by dipstickon 05-09-2022 Leukocyte esterase Test strip Ql (U) Negative Negative [facility] Work Phone: Urine pHon 05-09-2022 pH (U) 6.0 [pH] 5.0 - 8.0 [facility] Work Phone: Urine sediment bacteria coun t by microscopy (number/high power field)on 05-09-2022 Bacteria LM.HPF (Urine sed) [#/Area] 0 /[HPF] None Seen [facility] Work Phone: Urine specific gravity measu rementon 05-09-2022 Specific gravity (U) [Rel density] 1.015 1.002-1.030 [facility] Work Phone: Urobilinogen Auto test strip Ql (U)on 05-09-2022 Urobilinogen Ql (U) Normal mg/dl Normal [facility] [place] Work Phone: Basophil percentageon 2021 Bilirubin [Mass/Vol] 0.20 mg/dL 0.20-1.00 [facility] Work Phone: Comment on above: For patients on eltr ombopag therapy, use of Dimension [place] TBIL is not recommended. Chloride [Moles/Vol] 108 mmol/L 98-107 [facility] Work Phone: Glucose [Mass/Vol] 240 mg/dL 74-106 [facility] Work Phone: Comment on above: Glucose result great er than or equal to 200 mg/dLsuggests DIABETES MELLITUS per A.D.A. criteria. Potassium [Moles/Vol] 4.1 mmol/L 3.5-5.1 [facility] [place] Work Phone: Protein [Mass/Vol] 7.0 g/dL 6.4-8.2 [facility] Work Phone: Sodium [Moles/Vol] 138 mmol/L 136-145 [facility] Work Phone: WBC (Bld) [#/Vol] 4.6 10*3/uL 4.4-11.0 [facility] Work Phone: Blood erythrocytes count (nu mber/volume)on 02-15-2022 RBC (Bld) [#/Vol] 5.21 10*6/uL 4.6-6.2 [facility] Work Phone: Blood hemoglobin measurement (mass/volume)on 02-15-2022 Hemoglobin (Bld) [Mass/Vol] 15.2 g/dL 13.0-16.5 [facility] Work Phone: Blood platelet mean volumeon 02-15-2022 Platelet mean volume (Bld) [Entitic vol] 9.0 fL 6.2-12.0 [facility] Work Phone: Determination of erythrocyte mean corpuscular volume (MCV)on 02-15-2022 MCV (RBC) [Entitic vol] 83.5 fL 80-94 [facility] Work Phone: Hematocrit Auto (Bld) [Volum e fraction]on 02-15-2022 Hematocrit (Bld) [Volume fraction] 43.5 % 40-54 [facility] Work Phone: Laboratory - Chemistry and C hemistry - challengeon 02-15-2022 ALP [Catalytic activity/Vol] 130 U/L 45-117 [facility] Work Phone: ALT [Catalytic activity/Vol] 40 U/L 16-61 [facility] Work Phone: CO2 [Moles/Vol] 23.0 mmol/L 21.0-32.0 [facility] Work Phone: Globulin (S) [Mass/Vol] 3.7 g/dL 2.2-4.2 [facility] Work Phone: Urea nitrogen/Creatinine [Mass ratio] 18.2 mg/mg 10-20 [facility] Work Phone: Laboratory - Hematology and Cell countson 02-15-2022 Erythrocyte distribution width (RBC) [Entitic vol] 44.1 fL 35.1-43.9 [facility] Work Phone: Erythrocyte distribution width (RBC) [Ratio] 14.5 % 11.6-14.6 [facility] Work Phone: MCH (RBC) [Entitic mass] 29.2 pg 27.0-32.0 [facility] Work Phone: MCHC Auto (RBC) [Mass/Vol]on 02-15-2022 MCHC (RBC) [Mass/Vol] 34.9 g/dL 32-36 [facility] [place] Work Phone: No Panel Informationon 02-15 Estimated GFR (MDRD) Amer 48 mL/min >60 [facility] Work Phone: Comment on above: GFR Calc Estimated GFR (MDRD) Non-Af Amer 39 mL/min >60 [facility] Work Phone: Comment on above: Non- GFR Calc Thyroid Stimulating Hormone (TSH) 2.87 uIU/mL 0.358-3.74 [facility] Work Phone: Vitamin D 25-Hydroxy 47.2 ng/mL [facility] Work Phone: Comment on above: Vitamin D 25(OH) Sta tus Range Deficiency <20 ng/mL (50nmol/L) Insufficiency 20 - 30 ng/mL (50 - 75 nmol/L) Sufficiency 30 - 100 ng/mL (75 - 250 nmol/L) Toxicity >100 ng/mL (>250 nmol/L) Platelets bldon 02-15-2022 Platelets (Bld) [#/Vol] 169 10*3/uL 150-450 [facility] Work Phone: Serum or plasma albumin carl urement (mass/volume)on 02-15-2022 Albumin [Mass/Vol] 3.3 g/dL 3.2-5.0 [facility] Work Phone: Serum or plasma albumin/glob ulin mass ratioon 02-15-2022 Albumin/Globulin [Mass ratio] 0.9 {ratio} 0.9-2.4 [facility] Work Phone: Serum or plasma calcium carl urement (mass/volume)on 02-15-2022 Calcium [Mass/Vol] 9.4 mg/dL 8.5-10.1 [facility] Work Phone: Serum or plasma creatinine m easurement (mass/volume)on 02-15-2022 Creatinine [Mass/Vol] 2.09 mg/dL 0.70-1.30 [facility] [place] Work Phone: Comment on above: The validity of the calculated GFR & GFRAA in patients over 70 years has not been determined. Clinical correlation is essential. Serum or plasma lamotrigine measurement (mass/volume)on 02-15-2022 lamoTRIgine [Mass/Vol] 3.0 ug/mL 2.0-20.0 [facility] Work Phone: Comment on above: Detection Limit = 1. 0Performed at: [facility] [id number] [place], [place] [id number] Director: Rufus Lu MD, Phone: [phone] Serum or plasma urea nitroge n measurement (mass/volume)on 02-15-2022 Urea nitrogen [Mass/Vol] 38 mg/dL 7-18 [facility] Work Phone: Thin prep Papanicolaou smear with manual screeningon 02-15-2022 Thin prep Papanicolaou smear with manual screening 22 U/L 15-37 [facility] Work Phone: Thin prep Papanicolaou smear with manual screening 7 5-15 [facility] Work Phone: Urine creatinine measurement (mass/volume)on 02-15-2022 Creatinine (U) [Mass/Vol] 70.80 mg/dL NO RANGE EST. [facility] Work Phone: Urine protein measurement (m ass/volume)on 02-15-2022 Protein (U) [Mass/Vol] 102.4 mg/dL 0.0-11.8 [facility] Work Phone: Urine protein/creatinine mas s ratioon 02-15-2022 Protein/Creatinine (U) [Mass ratio] 1446 mg/g CRE 0-200 [facility] Work Phone: Whole blood hemoglobin A1c/t otal hemoglobin ratio (mass fraction)on 02-15-2022 HbA1c (Bld) [Mass fraction] 6.2 % 3.8-5.6 [facility] Work Phone: Comment on above: Normal < 5.7 % Predi abetic 5.7 - 6.4 % Diabetic >or= 6.5 % Please note range changes. UA DIP, URINE (POC)on 2021 BILIRUBIN UA (POCT) Negative Negative [facility] CLARITY UA (POCT) Cloudy [facility] COLOR UA (POCT) Other [facility] GLUCOSE UA (POCT) Negative Negative mg/dL [facility] HEMOGLOBIN/BLOOD UA (POCT) Moderate Abnormal Negative [facility] KETONE UA (POCT) Negative Negative mg/dL [facility] LEUKOCYTES UA (POCT) Large Abnormal Negative [facility] NITRITE UA (POCT) Positive Abnormal Negative [facility] PH UA (POCT) 5.5 4.5 - 8.0 [facility] Protein Ql (U) 100 mg/dL Abnormal Negative mg/dL [facility] SPECIFIC GRAVITY UA (POCT) 1.020 1.005 - 1.030 [facility] UROBILINOGEN UA (POCT) 0.2 E.U./dL Alvina l E.U./dL [facility] Basophil percentageon 2021 Bilirubin [Mass/Vol] 0.20 mg/dL 0.20-1.00 [facility] Work Phone: Comment on above: For patients on eltr ombopag therapy, use of Dimension [place] TBIL is not recommended. Chloride [Moles/Vol] 109 mmol/L 98-107 [facility] Work Phone: Glucose [Mass/Vol] 201 mg/dL 74-106 [facility] Work Phone: Comment on above: Glucose result great er than or equal to 200 mg/dLsuggests DIABETES MELLITUS per A.D.A. criteria. Potassium [Moles/Vol] 4.6 mmol/L 3.5-5.1 [facility] [place] Work Phone: Comment on above: Slight Hemolysis, Re sult may be falsely increased. Protein [Mass/Vol] 6.8 g/dL 6.4-8.2 [facility] Work Phone: Sodium [Moles/Vol] 138 mmol/L 136-145 [facility] Work Phone: Laboratory - Chemistry and C hemistry - challengeon 01-22-2022 ALP [Catalytic activity/Vol] 136 U/L 45-117 [facility] Work Phone: ALT [Catalytic activity/Vol] 46 U/L 16-61 [facility] Work Phone: CO2 [Moles/Vol] 22.0 mmol/L 21.0-32.0 [facility] Work Phone: Globulin (S) [Mass/Vol] 3.6 g/dL 2.2-4.2 [facility] Work Phone: Urea nitrogen/Creatinine [Mass ratio] 16.1 mg/mg 10-20 [facility] Work Phone: No Panel Informationon 01-22 Estimated GFR (MDRD) Amer 51 mL/min >60 [facility] Work Phone: Comment on above: GFR Calc Estimated GFR (MDRD) Non-Af Amer 42 mL/min >60 [facility] Work Phone: Comment on above: Non- GFR Calc Serum or plasma albumin carl urement (mass/volume)on 01-22-2022 Albumin [Mass/Vol] 3.2 g/dL 3.2-5.0 [facility] Work Phone: Serum or plasma albumin/glob ulin mass ratioon 01-22-2022 Albumin/Globulin [Mass ratio] 0.9 {ratio} 0.9-2.4 [facility] Work Phone: Serum or plasma calcium carl urement (mass/volume)on 01-22-2022 Calcium [Mass/Vol] 9.0 mg/dL 8.5-10.1 [facility] Work Phone: Serum or plasma creatinine m easurement (mass/volume)on 01-22-2022 Creatinine [Mass/Vol] 1.99 mg/dL 0.70-1.30 [facility]: Comment on above: The validity of the calculated GFR & GFRAA in patients over 70 years has not been determined. Clinical correlation is essential. Serum or plasma urea nitroge n measurement (mass/volume)on 01-22-2022 Urea nitrogen [Mass/Vol] 32 mg/dL 7-18 [facility] Work Phone: Thin prep Papanicolaou smear with manual screeningon 01-22-2022 Thin prep Papanicolaou smear with manual screening 34 U/L 15-37 [facility] Work Phone: Comment on above: Slight Hemolysis, Re sult may be falsely increased. Thin prep Papanicolaou smear with manual screening 7 5-15 [facility] Work Phone: Whole blood hemoglobin A1c/t otal hemoglobin ratio (mass fraction)on 01-22-2022 HbA1c (Bld) [Mass fraction] 6.5 % 3.8-5.6 [facility] Work Phone: Comment on above: Normal < 5.7 % Predi abetic 5.7 - 6.4 % Diabetic >or= 6.5 % Please note range changes. Basophil percentageon 2021 Basophil percentage 50-100 SEEN /hpf [facility] Work Phone: Bilirubin Test strip Ql (U)o n 01-02-2022 Bilirubin Ql (U) Negative Negative [facility] Work Phone: Culture, urineon 01-02-2022 Bacteria identified Cx Nom (U) Positive [facility] Work Phone: Ketones Test strip Ql (U)on 01-02-2022 Ketones Ql (U) Negative Negative [facility] Work Phone: Mucus LM Ql (Urine sed)on Mucus Ql (Urine sed) 0 SEEN /hpf [facility] [place] Work Phone: Nitrite Test strip Ql (U)on 01-02-2022 Nitrite Ql (U) Negative Negative [facility] Work Phone: Protein Test strip Ql (U)on 01-02-2022 Protein Ql (U) 100 mg/dl Negative [facility] Work Phone: Squamous epithelial cells de tection in urine sediment by light microscopyon 01-02-2022 Epithelial cells.squamous LM Ql (Urine sed) 0 SEEN /hpf [facility] Work Phone: Urine blood detectionon 12-18 RBC Ql (U) 10 /ul Negative [facility] Work Phone: RBC Ql (U) 0-5 SEEN /hpf [facility] Work Phone: Urine clarityon 01-02-2022 Clarity (U) Clear Clear [facility] Work Phone: Urine color determinationon 01-02-2022 Color (U) Yellow Yellow [facility] Work Phone: Urine glucose detectionon Glucose Ql (U) Normal mg/dl Normal [facility] Work Phone: Urine leukocyte esterase det ection by dipstickon 01-02-2022 Leukocyte esterase Test strip Ql (U) 500 /ul Negative [facility] Work Phone: Urine pHon 01-02-2022 pH (U) 6.0 [pH] [facility] Work Phone: Urine sediment bacteria coun t by microscopy (number/high power field)on 01-02-2022 Bacteria LM.HPF (Urine sed) [#/Area] 1 /[HPF] None Seen [facility] Work Phone: Urine specific gravity measu rementon 01-02-2022 Specific gravity (U) [Rel density] 1.020 [facility] Work Phone: Urobilinogen Auto test strip Ql (U)on 01-02-2022 Urobilinogen Ql (U) Normal mg/dl Normal [facility] [place] Work Phone: SARS coronavirus RNA [Presen ce] in Unspecified specimen by COLTEN with probe detectionon 11-21-2021 SARS-CoV RNA COLTEN+probe Ql (Unsp spec) Not detected Not Detected [facility] Work Phone: Comment on above: This nucleic acid am plification test was developed and itsperformance characteristics determined by [facility]. Nucleic acid amplification tests include RT-PCR and TMA. This test has not been FDA cleared orapproved. This test has been authorized by FDA under anEmergency Use Authorization (EUA). This test is onlyauthorized for the duration of time the declaration thatcircumstances exist justifying the authorization of theemergency use of in vitro diagnostic tests for detection [id number] virus and/or diagnosis of COVID-19 infectionunder section 564(b)(1) of the Act, 21 U.S.C. 360bbb-3(b)(1), unless the authorization is terminated or revokedsooner.When diagnostic testing is negative, the possibility of afalse negative result should be considered in the contextof a patient's recent exposures and the presence ofclinical signs and symptoms consistent with COVID-19. Anindividual without symptoms of COVID-19 and who is notshedding SARS-CoV-2 virus would expect to have a negative(not detected) result in this assay. Absolute lymphocyte counton 11-01-2021 Lymphocytes Auto (Unsp spec) [#/Vol] 1.41 10*3/uL 0.83-4.51 [facility] Work Phone: Basophil percentageon 2020 Bilirubin [Mass/Vol] 0.40 mg/dL 0.20-1.00 [facility] Work Phone: Comment on above: For patients on eltr ombopag therapy, use of Dimension Oolitic TBIL is not recommended. Chloride [Moles/Vol] 111 mmol/L 98-107 [facility] Work Phone: Cholesterol [Mass/Vol] 154 mg/dL <200 [facility] Work Phone: Comment on above: <200 mg/dL Desirable 200-240 mg/dL Borderline >240 mg/dL High Risk Eosinophils/100 WBC (Bld) 8.4 % 0-5 [facility] Work Phone: Glucose [Mass/Vol] 120 mg/dL 74-106 [facility] Work Phone: Comment on above: Fasting Glucose resu lt from 100 to 125 mg/dL suggests IMPAIRED HOMEOSTASIS per A.D.A. criteria.Please note revised GLUCOSE reference range effective 2017. Neutrophils (Bld) [#/Vol] 2.9 10*3/uL 2.0-7.7 [facility] Work Phone: Potassium [Moles/Vol] 4.8 mmol/L 3.5-5.1 [facility] [place] Work Phone: Comment on above: Moderate Hemolysis, Result may be falsely increased. Protein [Mass/Vol] 6.9 g/dL 6.4-8.2 [facility] Work Phone: Sodium [Moles/Vol] 140 mmol/L 136-145 [facility] Work Phone: Triglyceride [Mass/Vol] 220 mg/dL [facility] Work Phone: Comment on above: The drugs N-Acetylcy steine and Metamizole may falsely depress this assay.Serum Triglycerides Reference Interval Normal <150 mg/dL Borderline high 150 - 199 mg/dL High 200 - 499 mg/dL Very High > or = 500 mg/dL WBC (Bld) [#/Vol] 5.4 10*3/uL 4.4-11.0 [facility] Work Phone: Blood erythrocytes count (nu mber/volume)on 11-01-2021 RBC (Bld) [#/Vol] 5.27 10*6/uL 4.6-6.2 [facility] Work Phone: Blood hemoglobin measurement (mass/volume)on 11-01-2021 Hemoglobin (Bld) [Mass/Vol] 14.3 g/dL 13.0-16.5 [facility] Work Phone: Blood lymphocytes/100 leukoc yteson 11-01-2021 Lymphocytes/100 WBC (Bld) 26.2 % 19-41 [facility] Work Phone: Blood monocytes/100 leukocyt eson 11-01-2021 Monocytes/100 WBC (Bld) 10.2 % 0-10 [facility] Work Phone: Blood platelet mean volumeon 11-01-2021 Platelet mean volume (Bld) [Entitic vol] 9.0 fL 6.2-12.0 [facility] Work Phone: Determination of erythrocyte mean corpuscular volume (MCV)on 11-01-2021 MCV (RBC) [Entitic vol] 81.4 fL 80-94 [facility] Work Phone: Hematocrit Auto (Bld) [Volum e fraction]on 11-01-2021 Hematocrit (Bld) [Volume fraction] 42.9 % 40-54 [facility] Work Phone: Laboratory - Chemistry and C hemistry - challengeon 11-01-2021 ALP [Catalytic activity/Vol] 115 U/L 45-117 [facility] Work Phone: ALT [Catalytic activity/Vol] 61 U/L 16-61 [facility] Work Phone: CO2 [Moles/Vol] 25.0 mmol/L 21.0-32.0 [facility] Work Phone: Globulin (S) [Mass/Vol] 3.6 g/dL 2.2-4.2 [facility] Work Phone: Urea nitrogen/Creatinine [Mass ratio] 15.3 mg/mg 10-20 [facility] Work Phone: Laboratory - Hematology and Cell countson 11-01-2021 Basophils/100 WBC (Unsp spec) 1.1 % 0-1 [facility] Work Phone: Erythrocyte distribution width (RBC) [Entitic vol] 37.3 fL 35.1-43.9 [facility] Work Phone: Erythrocyte distribution width (RBC) [Ratio] 12.8 % 11.6-14.6 [facility] Work Phone: Immature granulocytes/100 WBC (Bld) 0.600 % 0.0-0.9 [facility] Work Phone: Comment on above: IG% - Immature Granu locytes (promyelocytes, myelocytes and metamyelocytes) > 1% indicates that a LEFT SHIFT is Present. MCH (RBC) [Entitic mass] 27.1 pg 27.0-32.0 [facility] Work Phone: Neutrophils/100 WBC (Bld) 53.5 % 47-70 [facility] Work Phone: Nucleated RBC/100 WBC (Bld) [Ratio] 0 % 0-5 [facility] Work Phone: MCHC Auto (RBC) [Mass/Vol]on 11-01-2021 MCHC (RBC) [Mass/Vol] 33.3 g/dL 32-36 [facility] Work Phone: No Panel Informationon 11-01 Estimated GFR (MDRD) Amer 48 mL/min >60 [facility] Work Phone: Comment on above: GFR Calc Estimated GFR (MDRD) Non-Af Amer 40 mL/min >60 [facility] Work Phone: Comment on above: Non- GFR Calc Platelets bldon 11-01-2021 Platelets (Bld) [#/Vol] 183 10*3/uL 150-450 [facility] Work Phone: Serum or plasma albumin carl urement (mass/volume)on 11-01-2021 Albumin [Mass/Vol] 3.3 g/dL 3.2-5.0 [facility] Work Phone: Serum or plasma albumin/glob ulin mass ratioon 11-01-2021 Albumin/Globulin [Mass ratio] 0.9 {ratio} 0.9-2.4 [facility] Work Phone: Serum or plasma calcium carl urement (mass/volume)on 11-01-2021 Calcium [Mass/Vol] 9.3 mg/dL 8.5-10.1 [facility] Work Phone: Serum or plasma cholesterol in HDL measurement (mass/volume)on 11-01-2021 Cholesterol in HDL [Mass/Vol] 43 mg/dL [facility] Work Phone: Comment on above: The drugs N-Acetylcy steine and Metamizole may falsely depress this assay. Reference Range HDL <40 mg/dL Low HDL Cholesterol HDL >or= 60 mg/dL High HDL Cholesterol Serum or plasma cholesterol in VLDL measurement (mass/volume)on 11-01-2021 Cholesterol in VLDL [Mass/Vol] 44 mg/dL 5-40 [facility] Work Phone: Serum or plasma creatinine m easurement (mass/volume)on 11-01-2021 Creatinine [Mass/Vol] 2.09 mg/dL 0.70-1.30 [facility] [place] Work Phone: Comment on above: The validity of the calculated GFR & GFRAA in patients over 70 years has not been determined. Clinical correlation is essential. Serum or plasma low density lipoprotein (LDL) cholesterol measurement (mass/volume)on 11-01-2021 Cholesterol in LDL [Mass/Vol] 67 mg/dL 0-130 [facility] Work Phone: Serum or plasma urea nitroge n measurement (mass/volume)on 11-01-2021 Urea nitrogen [Mass/Vol] 32 mg/dL 7-18 [facility] Work Phone: Thin prep Papanicolaou smear with manual screeningon 11-01-2021 Thin prep Papanicolaou smear with manual screening 42 U/L 15-37 [facility] Work Phone: Comment on above: Moderate Hemolysis, Result may be falsely increased. Thin prep Papanicolaou smear with manual screening 4 5-15 [facility] Work Phone: XR Foot - left AP and Latera l and obliqueon 08-13-2021 IMPRESSION: Within normal limits. No fracture or other acute changes. Operations Staff Specialist Security: AGUSTINA Transcribe Date/Time: Aug 13 2021 12:13P Dictated by : TL HARRIS MD This examination was interpreted and the report reviewed and electronically signed by: TL HARRIS MD on Aug 13 2021 12:17PM [facility] DIVISION OF RADIOLOGY * * *Final Report* * * DATE OF EXAM: Aug 13 2021 12:04PM [id number] - XR FOOT 3V AP/LAT/OBL LT / PROCEDURE REASON: Foot pain, left * * * * Physician Interpretation * * * * LEFT FOOT 3 VIEWS, 08/13/2021 HISTORY: Injury. Foot pain, left COMPARISON: None TECHNIQUE: Standing AP and lateral views of the left foot. The right foot was included for comparison the AP projection. Also oblique view of the left foot. RESULTS: The bones appear intact and normally aligned. There is a small bone island in the fifth distal metatarsal shaft. There are mild degenerative changes along the dorsum of the mid tarsal region.. There are no soft tissue calcifications or radiopaque foreign bodies. Comparison imaging of the right foot is unremarkable. DIVISION OF RADIOLOGY Provider, [facility] - 08/13/2021 * * *Final Report* * * DATE OF EXAM: Aug 13 2021 12:04PM WOX [id number] - XR FOOT 3V AP/LAT/OBL LT / PROCEDURE REASON: Foot pain, left * * * * Physician Interpretation * * * * LEFT FOOT 3 VIEWS, 08/13/2021 HISTORY: Injury. Foot pain, left COMPARISON: None TECHNIQUE: Standing AP and lateral views of the left foot. The right foot was included for comparison the AP projection. Also oblique view of the left foot. RESULTS: The bones appear intact and normally aligned. There is a small bone island in the fifth distal metatarsal shaft. There are mild degenerative changes along the dorsum of the mid tarsal region.. There are no soft tissue calcifications or radiopaque foreign bodies. Comparison imaging of the right foot is unremarkable. IMPRESSION IMPRESSION: Within normal limits. No fracture or other acute changes. Operations Staff Specialist Security: PSCB Transcribe Date/Time: Aug 13 2021 12:13P Dictated by : TL HARRIS MD This examination was interpreted and the report reviewed and electronically signed by: TL HARRIS MD on Aug 13 2021 12:17PM [facility] Radiology Study observation (narrative) [facility] XR Foot - left AP and Latera l and obliqueOrdered By: [facility] Provider on 08-13-2021 [facility] Vital Signs Date Time Vital Sign Value Performing Clinician Facility 11-11-2024 14:44-0500 Body temperature 98.9 [degF] Dr. Floyd Guardado MD Work Phone: [facility] 11-11-2024 14:44-0500 Diastolic blood pressure 87 mm[Hg] Dr. Floyd romero MD Work Phone: [facility] 11-11-2024 14:44-0500 Heart rate 95 /min Dr. Floyd Guardado MD Work Phone: [facility] 11-11-2024 14:44-0500 Respiratory rate 20 /min Dr. Floyd Guardado MD Work Phone: [facility] 11-11-2024 14:44-0500 SaO2% (BldA) [Mass fraction] 92 % Dr. Floyd Guardado MD Work Phone: [facility] 11-11-2024 14:44-0500 Systolic blood pressure 128 mm[Hg] Dr. Floyd carey MD Work Phone: [facility] 11-11-2024 11:24-0500 Body height 182.[address] Floyd Guardado MD Work Phone: [facility] 11-11-2024 11:24-0500 Body mass index (BMI) [Ratio] 40.1 kg/m2 Dr. Floyd Guardado MD Work Phone: [facility] 11-11-2024 11:24-0500 Body weight 134.[address] Floyd Guardado MD Work Phone: [facility] 07-12-2024 15:02-0400 Body height 188 cm Qi Rankin MD Work Phone: [facility] 07-12-2024 15:02-0400 Body mass index (BMI) [Ratio] 37.03 kg/m2 Qi Rankin MD Work Phone: [facility] 07-12-2024 15:02-0400 Body temperature 97.39 [degF] Qi Rankin MD Work Phone: [facility] 07-12-2024 15:02-0400 Body weight 130.82 kg Qi Rankin MD Work Phone: [facility] 07-12-2024 15:02-0400 Diastolic blood pressure 90 mm[Hg] Qi Rankin MD Work Phone: [facility] 07-12-2024 15:02-0400 Heart rate 103 /min Qi Rankin MD Work Phone: [facility] 07-12-2024 15:02-0400 SaO2% (BldA) [Mass fraction] 98 % Qi Rankin MD Work Phone: [facility] 07-12-2024 15:02-0400 Systolic blood pressure 136 mm[Hg] Qi Rankin MD Work Phone: [facility] 07-08-2024 09:28-0400 Body mass index (BMI) [Ratio] 36.21 kg/m2 Hardik Masci DO Work Phone: [facility] 07-08-2024 09:28-0400 Body temperature 96.91 [degF] Hardik Masci DO Work Phone: [facility] 07-08-2024 09:28-0400 Body weight 127.91 kg Hardik Masci DO Work Phone: [facility] 07-08-2024 09:28-0400 Diastolic blood pressure 89 mm[Hg] Hardik Masci DO Work Phone: [facility] 07-08-2024 09:28-0400 Heart rate 71 /min Hardik Masci DO Work Phone: [facility] 07-08-2024 09:28-0400 Respiratory rate 14 /min Hardik Masci DO Work Phone: [facility] 07-08-2024 09:28-0400 SaO2% (BldA) [Mass fraction] 100 % Hardik Masci DO Work Phone: [facility] 07-08-2024 09:28-0400 Systolic blood pressure 137 mm[Hg] Hardik Masci DO Work Phone: [facility] 04-28-2024 09:21-0400 Body mass index (BMI) [Ratio] 34.79 kg/m2 Hardik Masci DO Work Phone: [facility] 04-28-2024 09:21-0400 Body temperature 96.69 [degF] Hardik Floodi DO Work Phone: [facility] 04-28-2024 09:21-0400 Body weight 122.92 kg Hardik Floodi DO Work Phone: [facility] 04-28-2024 09:21-0400 Diastolic blood pressure 81 mm[Hg] Hardik Floodi DO Work Phone: [facility] 04-28-2024 09:21-0400 Heart rate 92 /min Hardik Floodi DO Work Phone: [facility] 04-28-2024 09:21-0400 SaO2% (BldA) [Mass fraction] 100 % Hardik Floodi DO Work Phone: [facility] 04-28-2024 09:21-0400 Systolic blood pressure 121 mm[Hg] Hardik Floodi DO Work Phone: [facility] 04-19-2024 10:15-0400 Body mass index (BMI) [Ratio] 34.16 kg/m2 Alexus Palacios MD Work Phone: [facility] 04-19-2024 10:15-0400 Body temperature 96.91 [degF] Alexus Palacios MD Work Phone: [facility] 04-19-2024 10:15-0400 Body weight 120.7 kg Alexus Palacios MD Work Phone: [facility] 04-19-2024 10:15-0400 Diastolic blood pressure 72 mm[Hg] Alexus saenz MD Work Phone: [facility] 04-19-2024 10:15-0400 Heart rate 86 /min Alexus Palacios MD Work Phone: [facility] 04-19-2024 10:15-0400 Respiratory rate 20 /min Alexus Palacios MD Work Phone: [facility] 04-19-2024 10:15-0400 SaO2% (BldA) [Mass fraction] 100 % Alexus Palacios MD Work Phone: [facility] 04-19-2024 10:15-0400 Systolic blood pressure 126 mm[Hg] Alexus Palacios MD Work Phone: [facility] 03-30-2024 14:20-0400 Body height 188 cm Antonio Brown MD Work Phone: [facility] 03-30-2024 14:20-0400 Body mass index (BMI) [Ratio] 33.68 kg/m2 Antonio Brown MD Work Phone: [facility] 03-30-2024 14:20-0400 Body weight 119 kg Antonio Brown MD Work Phone: [facility] 03-30-2024 14:20-0400 Diastolic blood pressure 76 mm[Hg] Antonio garcia MD Work Phone: [facility] 03-30-2024 14:20-0400 Heart rate 93 /min Antonio Brown MD Work Phone: [facility] 03-30-2024 14:20-0400 Systolic blood pressure 109 mm[Hg] Antonio hughes MD Work Phone: [facility] 03-18-2024 09:19-0400 SaO2% (BldA) [Mass fraction] 96 % FLOYD GUARDADO [facility] Comment on above: Order Comment: Specimen Type: ARTERIAL B LOOD SPECIMENOrdering Facility: [facility] Address: [address] [place] [address] Performed By: #### A LLBG ####[facility] LABCLIA [id number] [place] [address] [place] 03-18-2024 08:04-0400 SaO2% (BldA) [Mass fraction] 99 % FLOYD GUARDADO [facility] Comment on above: Order Comment: Specimen Type: ARTERIAL B LOOD SPECIMENOrdering Facility: [facility] Address: [address] [place] [address] Performed By: #### A LLBG ####[facility] LABCLIA [id number] [place] [id number] [place] 03-18-2024 00:12-0400 SaO2% (BldA) [Mass fraction] 99 % FLOYD GUARDADO [facility] Comment on above: Order Comment: Specimen Type: ARTERIAL B LOOD SPECIMENOrdering Facility: [facility] Address: [address] [place] [address] Performed By: #### A LLBG ####[facility] LABCLIA [id number] [place] [id number] [place] 03-17-2024 18:27-0400 SaO2% (BldA) [Mass fraction] 98 % FLOYD GUARDADO [facility] Comment on above: Order Comment: Specimen Type: ARTERIAL B LOOD SPECIMENOrdering Facility: [facility] Address: [address] [place] [address] Performed By: #### A LLBG ####[facility] LABCLIA [id number] [place] [id number] [place] 03-17-2024 17:04-0400 SaO2% (BldA) [Mass fraction] 99 % FLOYD GUARDADO [facility] Comment on above: Order Comment: Specimen Type: ARTERIAL B LOOD SPECIMENOrdering Facility: [facility] Address: [address] [place], [place] [id number] Performed By: #### A LLBG ####[facility] LABCLIA [id number] [place] [id number] [place] 03-17-2024 15:15-0400 SaO2% (BldA) [Mass fraction] 100 % FLOYD GUARDADO [facility] Comment on above: Order Comment: Specimen Type: ARTERIAL B LOOD SPECIMENOrdering Facility: [facility] Address: [address] [place] [address] Performed By: #### A LLBG ####[facility] LABIA [id number] [place] [id number] [facility] 03-17-2024 12:28-0400 SaO2% (BldA) [Mass fraction] 99 % FLOYD GUARDADO [facility] Comment on above: Order Comment: Specimen Type: ARTERIAL B LOOD SPECIMENOrdering Facility: [facility] Address: [address] [place] [address] Performed By: #### A LLMG ####[facility] LABIA [id number] [place] [id number] [facility] 03-17-2024 09:15-0400 SaO2% (BldA) [Mass fraction] 98 % FLOYD GUARDADO [facility] Comment on above: Order Comment: Specimen Type: ARTERIAL B LOOD SPECIMENOrdering Facility: [facility] Address: [address] [place] [address] Performed By: #### A LLMG ####[facility] LABIA [id number] [address] [place] 03-16-2024 12:55-0400 Body mass index (BMI) [Ratio] 36.23 kg/m2 Antonio Brown MD Work Phone: [facility] 03-16-2024 12:55-0400 Body weight 128 kg Antonio Brown MD Work Phone: [facility] 03-16-2024 12:55-0400 Diastolic blood pressure 87 mm[Hg] Antonio garcia MD Work Phone: [facility] 03-16-2024 12:55-0400 Heart rate 91 /min Antonio Brown MD Work Phone: [facility] 03-16-2024 12:55-0400 Systolic blood pressure 129 mm[Hg] Antonio hughes MD Work Phone: [facility] 03-09-2024 13:18-0400 Body height 188 cm [facility] Work Phone: [facility] 03-09-2024 13:18-0400 Body mass index (BMI) [Ratio] 36 kg/m2 [facility] Work Phone: [facility] 03-09-2024 13:18-0400 Body temperature 97.39 [degF] [facility] Work Phone: [facility] 03-09-2024 13:18-0400 Body weight 127.2 kg [facility] 8 Work Phone: [facility] 03-09-2024 13:18-0400 Diastolic blood pressure 79 mm[Hg] [facility] 8 Work Phone: [facility] 03-09-2024 13:18-0400 Heart rate 86 /min [facility] 8 Work Phone: [facility] 03-09-2024 13:18-0400 SaO2% (BldA) [Mass fraction] 97 % [facility] 8 Work Phone: [facility] 03-09-2024 13:18-0400 Systolic blood pressure 131 mm[Hg] [facility] 8 Work Phone: [facility] 03-03-2024 09:32-0400 Body temperature 97.2 [degF] Hardik Wilkerson DO Work Phone: [facility] 03-03-2024 09:32-0400 Body weight 127.01 kg Hardik Floodi DO Work Phone: [facility] 03-03-2024 09:32-0400 Diastolic blood pressure 86 mm[Hg] Hardik Floodi DO Work Phone: [facility] 03-03-2024 09:32-0400 Heart rate 89 /min Hardik Floodi DO Work Phone: [facility] 03-03-2024 09:32-0400 SaO2% (BldA) [Mass fraction] 96 % Hardik Wilkerson DO Work Phone: [facility] 03-03-2024 09:32-0400 Systolic blood pressure 124 mm[Hg] Hardik Wilkerson DO Work Phone: [facility] 02-16-2024 14:31-0400 Body temperature 98.1 [degF] [facility] 02-16-2024 14:31-0400 Diastolic blood pressure 80 mm[Hg] [facility] 02-16-2024 14:31-0400 Heart rate 98 /min [facility] 02-16-2024 14:31-0400 Respiratory rate 20 /min [facility] 02-16-2024 14:31-0400 SaO2% (BldA) [Mass fraction] 96 % [facility] 02-16-2024 14:31-0400 Systolic blood pressure 140 mm[Hg] [facility] 02-16-2024 13:38-0400 Body height 182.88 cm [facility] 02-16-2024 13:38-0400 Body mass index (BMI) [Ratio] 30.4 kg/m2 [facility] 02-16-2024 13:38-0400 Body weight 101.6 kg [facility] 02-16-2024 09:16-0400 Body temperature 96.8 [degF] Alexus Palacios MD Work Phone: [facility] 02-16-2024 09:16-0400 Body weight 132.2 kg Alexus Palacios MD Work Phone: [facility] 02-16-2024 09:16-0400 Diastolic blood pressure 81 mm[Hg] Alexus saenz MD Work Phone: [facility] 02-16-2024 09:16-0400 Heart rate 104 /min Alexus Palacios MD Work Phone: [facility] 02-16-2024 09:16-0400 Respiratory rate 20 /min Alexus Palacios MD Work Phone: [facility] 02-16-2024 09:16-0400 SaO2% (BldA) [Mass fraction] 97 % Alexus Palacios MD Work Phone: [facility] 02-16-2024 09:16-0400 Systolic blood pressure 140 mm[Hg] Alexus Palacios MD Work Phone: [facility] 01-27-2024 15:50-0400 Diastolic blood pressure 97 mm[Hg] Mai Way MD, MD Work Phone: [facility] 01-27-2024 15:50-0400 Heart rate 93 /min Mai Way MD, MD Work Phone: [facility] 01-27-2024 15:50-0400 Respiratory rate 17 /min Mai Way MD, MD Work Phone: [facility] 01-27-2024 15:50-0400 SaO2% (BldA) [Mass fraction] 98 % Mai Way MD, MD Work Phone: [facility] 01-27-2024 15:50-0400 Systolic blood pressure 163 mm[Hg] Mai Way MD, MD Work Phone: [facility] 01-27-2024 12:39-0400 Body temperature 97.39 [degF] Mai Way MD, MD Work Phone: [facility] 01-06-2024 09:48-0500 Body temperature 97.11 [degF] Hardik Aleenai DO Work Phone: [facility] 01-06-2024 09:48-0500 Body weight 133.81 kg Hardik Masci DO Work Phone: [facility] 01-06-2024 09:48-0500 Diastolic blood pressure 84 mm[Hg] Hardik Masci DO Work Phone: [facility] 01-06-2024 09:48-0500 Heart rate 94 /min Hardik Floodi DO Work Phone: [facility] 01-06-2024 09:48-0500 SaO2% (BldA) [Mass fraction] 99 % Hardik Floodi DO Work Phone: [facility] 01-06-2024 09:48-0500 Systolic blood pressure 150 mm[Hg] Hardik Wilkerson DO Work Phone: [facility] 10-21-2023 16:15-0500 Body height 188 cm Antonio Brown MD Work Phone: [facility] 10-21-2023 16:15-0500 Body weight 130.3 kg Antonio Brown MD Work Phone: [facility] 10-21-2023 16:15-0500 Diastolic blood pressure 80 mm[Hg] Antonio garcia MD Work Phone: [facility] 10-21-2023 16:15-0500 Heart rate 92 /min Antonio Brown MD Work Phone: [facility] 10-21-2023 16:15-0500 Systolic blood pressure 130 mm[Hg] Antonio hughes MD Work Phone: [facility] 10-17-2023 10:12-0500 Body temperature 96.8 [degF] Alexus Palacios MD Work Phone: [facility] 10-17-2023 10:12-0500 Body weight 129.64 kg Alexus Palacios MD Work Phone: [facility] 10-17-2023 10:12-0500 Diastolic blood pressure 51 mm[Hg] Alexus saenz MD Work Phone: [facility] 10-17-2023 10:12-0500 Heart rate 89 /min Alexus Palacios MD Work Phone: [facility] 10-17-2023 10:12-0500 Respiratory rate 20 /min Alexus Palacios MD Work Phone: [facility] 10-17-2023 10:12-0500 SaO2% (BldA) [Mass fraction] 100 % Alexus Palacios MD Work Phone: [facility] 10-17-2023 10:12-0500 Systolic blood pressure 120 mm[Hg] Alexus Palacios MD Work Phone: [facility] 09-30-2023 15:58-0500 Body temperature 96.91 [degF] Hardik Wilkerson DO Work Phone: [facility] 09-30-2023 15:58-0500 Body weight 123.15 kg Hardik Floodi DO Work Phone: [facility] 09-30-2023 15:58-0500 Diastolic blood pressure 79 mm[Hg] Hardik Floodi DO Work Phone: [facility] 09-30-2023 15:58-0500 Heart rate 94 /min Hardik Floodi DO Work Phone: [facility] 09-30-2023 15:58-0500 SaO2% (BldA) [Mass fraction] 100 % Hardik Floodi DO Work Phone: [facility] 09-30-2023 15:58-0500 Systolic blood pressure 127 mm[Hg] Hardik Floodi DO Work Phone: [facility] 09-26-2023 13:09-0500 Body temperature 96.6 [degF] Dr. Floyd Guardado Work Phone: [facility] 09-26-2023 13:09-0500 Diastolic blood pressure 69 mm[Hg] Dr. Floyd romero Work Phone: [facility] 09-26-2023 13:09-0500 Heart rate 91 /min Dr. Floyd Guardado Work Phone: [facility] 09-26-2023 13:09-0500 Respiratory rate 16 /min Dr. Floyd Guardado Work Phone: [facility] 09-26-2023 13:09-0500 Systolic blood pressure 124 mm[Hg] Dr. Floyd carey Work Phone: [facility] 09-26-2023 11:10-0500 SaO2% (BldA) [Mass fraction] 100 % Dr. Floyd Guardado Work Phone: [facility] 09-26-2023 08:37-0500 Body height 187.[address] Floyd Guardado Work Phone: [facility] 09-26-2023 08:37-0500 Body mass index (BMI) [Ratio] 34.1 kg/m2 Dr. Floyd Guardado Work Phone: [facility] 09-26-2023 08:37-0500 Body weight 120.[address] Floyd Guardado Work Phone: [facility] 09-25-2023 14:38-0500 Body temperature 96.8 [degF] Lab/Port Wstr Work Phone: [facility] 09-25-2023 14:36-0500 SaO2% (BldA) [Mass fraction] 100 % Lab/Port Wstr Work Phone: [facility] 09-19-2023 07:43-0400 Body temperature 97.5 [degF] Treatment Wstr Work Phone: [facility] 09-19-2023 07:43-0400 Diastolic blood pressure 80 mm[Hg] Treatment Wstr Work Phone: [facility] 09-19-2023 07:43-0400 Heart rate 91 /min Treatment Wstr Work Phone: [facility] 09-19-2023 07:43-0400 Systolic blood pressure 145 mm[Hg] Treatment Wstr Work Phone: [facility] 09-17-2023 08:37-0400 Body temperature 97.5 [degF] Treatment Wstr Work Phone: [facility] 09-17-2023 08:37-0400 Diastolic blood pressure 62 mm[Hg] Treatment Wstr Work Phone: [facility] 09-17-2023 08:37-0400 Heart rate 110 /min Treatment Wstr Work Phone: [facility] 09-17-2023 08:37-0400 Systolic blood pressure 116 mm[Hg] Treatment Wstr Work Phone: [facility] 09-16-2023 10:50-0400 Body temperature 96.4 [degF] Treatment Wstr Work Phone: [facility] 09-16-2023 10:50-0400 Body weight 127.91 kg Treatment Wstr Work Phone: [facility] 09-16-2023 10:50-0400 Diastolic blood pressure 72 mm[Hg] Treatment Wstr Work Phone: [facility] 09-16-2023 10:50-0400 Heart rate 93 /min Treatment Wstr Work Phone: [facility] 09-16-2023 10:50-0400 SaO2% (BldA) [Mass fraction] 100 % Treatment Wstr Work Phone: [facility] 09-16-2023 10:50-0400 Systolic blood pressure 119 mm[Hg] Treatment Wstr Work Phone: [facility] 08-27-2023 14:16-0400 Body temperature 97.11 [degF] Treatment Wstr Work Phone: [facility] 08-27-2023 14:16-0400 Diastolic blood pressure 73 mm[Hg] Treatment Wstr Work Phone: [facility] 08-27-2023 14:16-0400 Heart rate 99 /min Treatment Wstr Work Phone: [facility] 08-27-2023 14:16-0400 Respiratory rate 20 /min Treatment Wstr Work Phone: [facility] 08-27-2023 14:16-0400 Systolic blood pressure 133 mm[Hg] Treatment Wstr Work Phone: [facility] 08-26-2023 13:23-0400 Body temperature 97.9 [degF] Treatment Wstr Work Phone: [facility] 08-26-2023 13:23-0400 Diastolic blood pressure 72 mm[Hg] Treatment Wstr Work Phone: [facility] 08-26-2023 13:23-0400 Heart rate 111 /min Treatment Wstr Work Phone: [facility] 08-26-2023 13:23-0400 Systolic blood pressure 127 mm[Hg] Treatment Wstr Work Phone: [facility] 08-26-2023 12:16-0400 Body temperature 97.3 [degF] Dr. Floyd Guardado Work Phone: [facility] 08-26-2023 12:16-0400 Diastolic blood pressure 65 mm[Hg] Dr. Floyd romero Work Phone: [facility] 08-26-2023 12:16-0400 Heart rate 116 /min Dr. Floyd Guardado Work Phone: [facility] 08-26-2023 12:16-0400 Respiratory rate 16 /min Dr. Floyd Guardado Work Phone: [facility] 08-26-2023 12:16-0400 SaO2% (BldA) [Mass fraction] 96 % Dr. Floyd Guardado Work Phone: [facility] 08-26-2023 12:16-0400 Systolic blood pressure 120 mm[Hg] Dr. Floyd carey Work Phone: [facility] 08-26-2023 09:51-0400 Body height 187.[address] Floyd Guardado Work Phone: [facility] 08-26-2023 09:51-0400 Body mass index (BMI) [Ratio] 37.6 kg/m2 Dr. Floyd Guardado Work Phone: [facility] 08-26-2023 09:51-0400 Body weight 132.[address] Floyd Guardado Work Phone: [facility] 08-25-2023 13:00-0400 Body temperature 98.01 [degF] Treatment Wstr Work Phone: [facility] 08-25-2023 13:00-0400 Body weight 128.82 kg Treatment Wstr Work Phone: [facility] 08-25-2023 13:00-0400 Diastolic blood pressure 74 mm[Hg] Treatment Wstr Work Phone: [facility] 08-25-2023 13:00-0400 Heart rate 90 /min Treatment Wstr Work Phone: [facility] 08-25-2023 13:00-0400 Respiratory rate 16 /min Treatment Wstr Work Phone: [facility] 08-25-2023 13:00-0400 SaO2% (BldA) [Mass fraction] 98 % Treatment Wstr Work Phone: [facility] 08-25-2023 13:00-0400 Systolic blood pressure 118 mm[Hg] Treatment Wstr Work Phone: [facility] 08-08-2023 14:01-0400 Body temperature 97.5 [degF] Treatment Wstr Work Phone: [facility] 08-08-2023 14:01-0400 Diastolic blood pressure 76 mm[Hg] Treatment Wstr Work Phone: [facility] 08-08-2023 14:01-0400 Heart rate 82 /min Treatment Wstr Work Phone: [facility] 08-08-2023 14:01-0400 Systolic blood pressure 136 mm[Hg] Treatment Wstr Work Phone: [facility] 08-07-2023 11:10-0400 Diastolic blood pressure 80 mm[Hg] Treatment Wstr Work Phone: [facility] 08-07-2023 11:10-0400 Heart rate 68 /min Treatment Wstr Work Phone: [facility] 08-07-2023 11:10-0400 Respiratory rate 16 /min Treatment Wstr Work Phone: [facility] 08-07-2023 11:10-0400 Systolic blood pressure 132 mm[Hg] Treatment Wstr Work Phone: [facility] 08-07-2023 08:50-0400 Body temperature 97.3 [degF] Treatment Wstr Work Phone: [facility] 08-07-2023 08:50-0400 SaO2% (BldA) [Mass fraction] 98 % Treatment Wstr Work Phone: [facility] 08-06-2023 13:46-0400 Body temperature 97.2 [degF] Treatment Wstr Work Phone: [facility] 08-06-2023 13:46-0400 Diastolic blood pressure 70 mm[Hg] Treatment Wstr Work Phone: [facility] 08-06-2023 13:46-0400 Heart rate 93 /min Treatment Wstr Work Phone: [facility] 08-06-2023 13:46-0400 Systolic blood pressure 126 mm[Hg] Treatment Wstr Work Phone: [facility] 08-04-2023 08:14-0400 Body temperature 97.59 [degF] Treatment Wstr Work Phone: [facility] 08-04-2023 08:14-0400 Diastolic blood pressure 65 mm[Hg] Treatment Wstr Work Phone: [facility] 08-04-2023 08:14-0400 Heart rate 83 /min Treatment Wstr Work Phone: [facility] 08-04-2023 08:14-0400 Respiratory rate 18 /min Treatment Wstr Work Phone: [facility] 08-04-2023 08:14-0400 SaO2% (BldA) [Mass fraction] 100 % Treatment Wstr Work Phone: [facility] 08-04-2023 08:14-0400 Systolic blood pressure 118 mm[Hg] Treatment Wstr Work Phone: [facility] 08-01-2023 15:26-0400 Body temperature 96.8 [degF] Hardik Wilkerson DO Work Phone: [facility] 08-01-2023 15:26-0400 Body weight 125.87 kg Hardik Wilkerson DO Work Phone: [facility] 08-01-2023 15:26-0400 Diastolic blood pressure 73 mm[Hg] Hardik Masci DO Work Phone: [facility] 08-01-2023 15:26-0400 Heart rate 102 /min Hardik Floodi DO Work Phone: [facility] 08-01-2023 15:26-0400 SaO2% (BldA) [Mass fraction] 100 % Hardik Floodi DO Work Phone: [facility] 08-01-2023 15:26-0400 Systolic blood pressure 122 mm[Hg] Hardik Floodi DO Work Phone: [facility] 07-18-2023 14:58-0400 Diastolic blood pressure 92 mm[Hg] Treatment Wstr Work Phone: [facility] 07-18-2023 14:58-0400 Heart rate 76 /min Treatment Wstr Work Phone: [facility] 07-18-2023 14:58-0400 Respiratory rate 16 /min Treatment Wstr Work Phone: [facility] 07-18-2023 14:58-0400 SaO2% (BldA) [Mass fraction] 97 % Treatment Wstr Work Phone: [facility] 07-18-2023 14:58-0400 Systolic blood pressure 141 mm[Hg] Treatment Wstr Work Phone: [facility] 07-18-2023 13:00-0400 Body temperature 97.59 [degF] Treatment Wstr Work Phone: [facility] 07-17-2023 09:14-0400 Body temperature 97.3 [degF] Treatment Wstr Work Phone: [facility] 07-17-2023 09:14-0400 Diastolic blood pressure 90 mm[Hg] Treatment Wstr Work Phone: [facility] 07-17-2023 09:14-0400 Heart rate 89 /min Treatment Wstr Work Phone: [facility] 07-17-2023 09:14-0400 Systolic blood pressure 150 mm[Hg] Treatment Wstr Work Phone: [facility] 07-16-2023 10:00-0400 Body temperature 97.59 [degF] Treatment Wstr Work Phone: [facility] 07-16-2023 10:00-0400 Diastolic blood pressure 86 mm[Hg] Treatment Wstr Work Phone: [facility] 07-16-2023 10:00-0400 Heart rate 86 /min Treatment Wstr Work Phone: [facility] 07-16-2023 10:00-0400 Systolic blood pressure 143 mm[Hg] Treatment Wstr Work Phone: [facility] 07-14-2023 16:05-0400 Diastolic blood pressure 83 mm[Hg] Treatment Wstr Work Phone: [facility] 07-14-2023 16:05-0400 Heart rate 91 /min Treatment Wstr Work Phone: [facility] 07-14-2023 16:05-0400 Respiratory rate 18 /min Treatment Wstr Work Phone: [facility] 07-14-2023 16:05-0400 SaO2% (BldA) [Mass fraction] 95 % Treatment Wstr Work Phone: [facility] 07-14-2023 16:05-0400 Systolic blood pressure 143 mm[Hg] Treatment Wstr Work Phone: [facility] 07-14-2023 12:52-0400 Body temperature 97.3 [degF] Treatment Wstr Work Phone: [facility] 07-14-2023 12:52-0400 Body weight 124.06 kg Treatment Wstr Work Phone: [facility] 07-03-2023 10:13-0400 Body height 181 cm Hardik Floodi DO Work Phone: [facility] 07-03-2023 10:13-0400 Body temperature 97.5 [degF] Hardik Floodi DO Work Phone: [facility] 07-03-2023 10:13-0400 Body weight 118.39 kg Hardik Masci DO Work Phone: [facility] 07-03-2023 10:13-0400 Diastolic blood pressure 82 mm[Hg] Hardik Floodi DO Work Phone: [facility] 07-03-2023 10:13-0400 Heart rate 89 /min Hardik Masci DO Work Phone: [facility] 07-03-2023 10:13-0400 SaO2% (BldA) [Mass fraction] 98 % Hardik Masci DO Work Phone: [facility] 07-03-2023 10:13-0400 Systolic blood pressure 134 mm[Hg] Hardik Floodi DO Work Phone: [facility] 06-24-2023 19:05-0400 Diastolic blood pressure 78 mm[Hg] Dr. Floyd romero Work Phone: [facility] 06-24-2023 19:05-0400 Heart rate 66 /min Dr. Floyd Guardado Work Phone: [facility] 06-24-2023 19:05-0400 Respiratory rate 16 /min Dr. Floyd Guardado Work Phone: [facility] 06-24-2023 19:05-0400 Systolic blood pressure 138 mm[Hg] Dr. Floyd carey Work Phone: [facility] 06-24-2023 16:58-0400 Body height 187.[address] Floyd Guardado Work Phone: [facility] 06-24-2023 16:58-0400 Body mass index (BMI) [Ratio] 33.8 kg/m2 Dr. Floyd Guardado Work Phone: [facility] 06-24-2023 16:58-0400 Body temperature 98.2 [degF] Dr. Floyd Guardado Work Phone: [facility] 06-24-2023 16:58-0400 Body weight 119.[address] Floyd Guardado Work Phone: [facility] 06-24-2023 16:58-0400 SaO2% (BldA) [Mass fraction] 94 % Dr. Floyd Guardado Work Phone: [facility] 06-20-2023 14:13-0400 Diastolic blood pressure 96 mm[Hg] Dr. Floyd romero Work Phone: [facility] 06-20-2023 14:13-0400 Heart rate 78 /min Dr. Floyd Guardado Work Phone: [facility] 06-20-2023 14:13-0400 Respiratory rate 16 /min Dr. Floyd Guardado Work Phone: [facility] 06-20-2023 14:13-0400 Systolic blood pressure 158 mm[Hg] Dr. Floyd carey Work Phone: 0(233)742-695034 [place] [address] 06-20-2023 12:13-0400 Body height 187.[address] Floyd Guardado Work Phone: 1(497)275-394434 [place] [address] 06-20-2023 12:13-0400 Body mass index (BMI) [Ratio] 32.8 kg/m2 Dr. Floyd Guardado Work Phone: 1(980)006-310734 [place] [address] 06-20-2023 12:13-0400 Body temperature 98.4 [degF] Dr. Floyd Guardado Work Phone: 4(121)837-053734 [place] [address] 06-20-2023 12:13-0400 Body weight 116.[address] Floyd Guardado Work Phone: [facility] 06-20-2023 12:13-0400 SaO2% (BldA) [Mass fraction] 99 % Dr. Floyd Guardado Work Phone: 3(072)645-099834 [place] [address] 06-17-2023 10:37-0400 Body mass index (BMI) [Ratio] 34 kg/m2 Dr. Floyd Guardado Work Phone: [facility] 06-17-2023 10:37-0400 Body temperature 97.5 [degF] Dr. Floyd Guardado Work Phone: [facility] 06-17-2023 10:37-0400 Body weight 119.[address] Floyd Guardado Work Phone: [facility] 06-17-2023 10:37-0400 Diastolic blood pressure 89 mm[Hg] Dr. Floyd Peace er Work Phone: [facility] 06-17-2023 10:37-0400 Heart rate 85 /min Dr. Floyd Guardado Work Phone: [facility] 06-17-2023 10:37-0400 Respiratory rate 16 /min Dr. Floyd Guardado Work Phone: [facility] 06-17-2023 10:37-0400 SaO2% (BldA) [Mass fraction] 99 % Dr. Floyd Guardado Work Phone: [facility] 06-17-2023 10:37-0400 Systolic blood pressure 142 mm[Hg] Dr. Floyd carey Work Phone: [facility] 06-10-2023 19:20-0400 Body mass index (BMI) [Ratio] 36.6 kg/m2 Dr. Floyd Guardado Work Phone: [facility] 06-10-2023 19:20-0400 Body temperature 97.4 [degF] Dr. Floyd Guardado Work Phone: [facility] 06-10-2023 19:20-0400 Body weight 122.[address] Floyd Guardado Work Phone: [facility] 06-10-2023 19:20-0400 Diastolic blood pressure 106 mm[Hg] Dr. Floyd Peace er Work Phone: [facility] 06-10-2023 19:20-0400 Heart rate 107 /min Dr. Floyd Guardado Work Phone: [facility] 06-10-2023 19:20-0400 Respiratory rate 20 /min Dr. Floyd Guardado Work Phone: [facility] 06-10-2023 19:20-0400 SaO2% (BldA) [Mass fraction] 100 % Dr. Floyd Guardado Work Phone: [facility] 06-10-2023 19:20-0400 Systolic blood pressure 166 mm[Hg] Dr. Floyd carey Work Phone: [facility] 06-05-2023 10:55-0400 Body mass index (BMI) [Ratio] 36.6 kg/m2 Dr. Floyd Guardado Work Phone: [facility] 06-05-2023 10:55-0400 Body temperature 98.2 [degF] Dr. Floyd Guardado Work Phone: [facility] 06-05-2023 10:55-0400 Body weight 122.[address] Floyd Guardado Work Phone: [facility] 06-05-2023 10:55-0400 Diastolic blood pressure 95 mm[Hg] Dr. Floyd romero Work Phone: [facility] 06-05-2023 10:55-0400 Heart rate 79 /min Dr. Floyd Guardado Work Phone: [facility] 06-05-2023 10:55-0400 Respiratory rate 16 /min Dr. Floyd Guardado Work Phone: [facility] 06-05-2023 10:55-0400 SaO2% (BldA) [Mass fraction] 99 % Dr. Floyd Guardado Work Phone: [facility] 06-05-2023 10:55-0400 Systolic blood pressure 138 mm[Hg] Dr. Floyd carey Work Phone: [facility] 05-19-2023 11:35-0400 Diastolic blood pressure 97 mm[Hg] Dr. Floyd romero Work Phone: [facility] 05-19-2023 11:35-0400 Heart rate 73 /min Dr. Floyd Guardado Work Phone: [facility] 05-19-2023 11:35-0400 Respiratory rate 13 /min Dr. Floyd Guardado Work Phone: [facility] 05-19-2023 11:35-0400 SaO2% (BldA) [Mass fraction] 97 % Dr. Floyd Guardado Work Phone: [facility] 05-19-2023 11:35-0400 Systolic blood pressure 147 mm[Hg] Dr. Floyd carey Work Phone: [facility] 05-19-2023 09:11-0400 Body height 182.[address] Floyd Guardado Work Phone: [facility] 05-19-2023 09:11-0400 Body mass index (BMI) [Ratio] 37.3 kg/m2 Dr. Floyd Guardado Work Phone: [facility] 05-19-2023 09:11-0400 Body temperature 97.1 [degF] Dr. Floyd Guardado Work Phone: [facility] 05-19-2023 09:11-0400 Body weight 124.[address] Floyd Guardado Work Phone: [facility] 05-15-2023 14:38-0400 Body mass index (BMI) [Ratio] 37.5 kg/m2 Dr. Floyd Guardado Work Phone: [facility] 05-15-2023 14:38-0400 Body temperature 98.3 [degF] Dr. Floyd Guardado Work Phone: [facility] 05-15-2023 14:38-0400 Body weight 125.[address] Floyd Guardado Work Phone: [facility] 05-15-2023 14:38-0400 Diastolic blood pressure 85 mm[Hg] Dr. Floyd romero Work Phone: [facility] 05-15-2023 14:38-0400 Heart rate 87 /min Dr. Floyd Guardado Work Phone: [facility] 05-15-2023 14:38-0400 Respiratory rate 18 /min Dr. Floyd Guardado Work Phone: [facility] 05-15-2023 14:38-0400 SaO2% (BldA) [Mass fraction] 98 % Dr. Floyd Guardado Work Phone: [facility] 05-15-2023 14:38-0400 Systolic blood pressure 131 mm[Hg] Dr. Floyd carey Work Phone: [facility] 05-14-2023 11:48-0400 Body temperature 97.8 [degF] [facility] 05-14-2023 11:48-0400 Diastolic blood pressure 76 mm[Hg] [facility] 05-14-2023 11:48-0400 Heart rate 67 /min [facility] 05-14-2023 11:48-0400 Respiratory rate 16 /min [facility] 05-14-2023 11:48-0400 SaO2% (BldA) [Mass fraction] 100 % [facility] 05-14-2023 11:48-0400 Systolic blood pressure 135 mm[Hg] [facility] 05-14-2023 08:12-0400 Body height 182.88 cm [facility] 05-14-2023 08:12-0400 Body mass index (BMI) [Ratio] 37 kg/m2 [facility] 05-14-2023 08:12-0400 Body weight 123.83 kg [facility] 10-29-2022 15:29-0500 Body height 182.88 cm [facility] 10-29-2022 15:29-0500 Body weight 131.17 kg [facility] 10-01-2022 17:34-0500 Body height 182.88 cm [facility] Work Phone: 10-01-2022 17:34-0500 Body weight 130.99 kg [facility] 07-30-2022 16:33-0400 Body height 182.[address] Floyd Guardado Work Phone: [facility] Work Phone: 07-30-2022 16:33-0400 Body weight 132.[address] Floyd Guardado Work Phone: [facility] Work Phone: 07-02-2022 13:54-0400 Body height 182.[address] Floyd Guardado Work Phone: [facility] Work Phone: 07-02-2022 13:54-0400 Body weight 133.[address] Floyd Guardado Work Phone: [facility] Work Phone: 06-23-2022 21:07-0400 Body height 182.[address] Floyd Guardado Work Phone: [facility] Work Phone: 06-23-2022 21:07-0400 Body mass index (BMI) [Ratio] 27.1 kg/m2 Dr. Floyd Guardado Work Phone: [facility] Work Phone: 06-23-2022 21:07-0400 Body temperature 97.1 [degF] Dr. Floyd Guardado Work Phone: [facility] Work Phone: 06-23-2022 21:07-0400 Body weight 90.[address] Floyd Guardado Work Phone: [facility] Work Phone: 06-23-2022 21:07-0400 Diastolic blood pressure 69 mm[Hg] Dr. Floyd Peace Work Phone: [facility] Work Phone: 06-23-2022 21:07-0400 Heart rate 97 /min Dr. Floyd Guardado Work Phone: [facility] Work Phone: 06-23-2022 21:07-0400 Respiratory rate 16 /min Dr. Floyd Guardado Work Phone: [facility] Work Phone: 06-23-2022 21:07-0400 SaO2% (BldA) [Mass fraction] 98 % Dr. Floyd Guardado Work Phone: [facility] Work Phone: 06-23-2022 21:07-0400 Systolic blood pressure 125 mm[Hg] Dr. Floyd carey Work Phone: [facility] Work Phone: 06-04-2022 22:01-0400 Diastolic blood pressure 103 mm[Hg] Dr. Floyd romero Work Phone: [facility] Work Phone: 06-04-2022 22:01-0400 Heart rate 119 /min Dr. Floyd Guardado Work Phone: [facility] Work Phone: 06-04-2022 22:01-0400 Respiratory rate 16 /min Dr. Floyd Guardado Work Phone: [facility] Work Phone: 06-04-2022 22:01-0400 SaO2% (BldA) [Mass fraction] 96 % Dr. Floyd Guardado Work Phone: [facility] Work Phone: 06-04-2022 22:01-0400 Systolic blood pressure 147 mm[Hg] Dr. Floyd carey Work Phone: [facility] Work Phone: 06-04-2022 21:00-0400 Body temperature 98 [degF] Dr. Floyd Guardado Work Phone: [facility] Work Phone: 06-04-2022 17:16-0400 Body mass index (BMI) [Ratio] 40 kg/m2 Dr. Floyd Guardado Work Phone: [facility] Work Phone: 06-04-2022 17:16-0400 Body weight 133.[address] Floyd Guardado Work Phone: [facility] Work Phone: 06-04-2022 16:31-0400 Body temperature 98.01 [degF] Matt Spangler HUMAN RESOURCES RECEPTIONIST.ANESTHESIOLOGY PHYSICIAN Work Phone: [facility] 06-04-2022 16:31-0400 Body weight 134.26 kg Matt Spangler HUMAN RESOURCES RECEPTIONIST.ANESTHESIOLOGY PHYSICIAN Work Phone: [facility] 06-04-2022 16:31-0400 Diastolic blood pressure 74 mm[Hg] Matt Spangler HUMAN RESOURCES RECEPTIONIST.ANESTHESIOLOGY PHYSICIAN Work Phone: [facility] 06-04-2022 16:31-0400 Heart rate 125 /min Matt Spangler HUMAN RESOURCES RECEPTIONIST.ANESTHESIOLOGY PHYSICIAN Work Phone: [facility] 06-04-2022 16:31-0400 Respiratory rate 24 /min Matt Spangler HUMAN RESOURCES RECEPTIONIST.ANESTHESIOLOGY PHYSICIAN Work Phone: [facility] 06-04-2022 16:31-0400 SaO2% (BldA) [Mass fraction] 97 % Matt Spangler HUMAN RESOURCES RECEPTIONIST.ANESTHESIOLOGY PHYSICIAN Work Phone: [facility] 06-04-2022 16:31-0400 Systolic blood pressure 124 mm[Hg] Matt Spangler HUMAN RESOURCES RECEPTIONIST.ANESTHESIOLOGY PHYSICIAN Work Phone: [facility] 02-14-2022 09:15-0400 Body temperature 97.59 [degF] Ck Gtaes HUMAN RESOURCES RECEPTIONIST.ANESTHESIOLOGY PHYSICIAN Work Phone: [facility] 02-14-2022 09:15-0400 Body weight 138.07 kg Ck Gates HUMAN RESOURCES RECEPTIONIST.ANESTHESIOLOGY PHYSICIAN Work Phone: [facility] 02-14-2022 09:15-0400 Diastolic blood pressure 78 mm[Hg] Ck ramirez HUMAN RESOURCES RECEPTIONIST.ANESTHESIOLOGY PHYSICIAN Work Phone: [facility] 02-14-2022 09:15-0400 Heart rate 132 /min Ck Gates HUMAN RESOURCES RECEPTIONIST.ANESTHESIOLOGY PHYSICIAN Work Phone: [facility] 02-14-2022 09:15-0400 Respiratory rate 20 /min Ck Menendezjared HUMAN RESOURCES RECEPTIONIST.ANESTHESIOLOGY PHYSICIAN Work Phone: [facility] 02-14-2022 09:15-0400 SaO2% (BldA) [Mass fraction] 98 % Ck Kody HUMAN RESOURCES RECEPTIONIST.ANESTHESIOLOGY PHYSICIAN Work Phone: [facility] 02-14-2022 09:15-0400 Systolic blood pressure 132 mm[Hg] Ck Td ding HUMAN RESOURCES RECEPTIONIST.ANESTHESIOLOGY PHYSICIAN Work Phone: [facility] 01-02-2022 20:19-0500 Body temperature 97.8 [degF] [facility] Work Phone: 01-02-2022 20:19-0500 Diastolic blood pressure 99 mm[Hg] [facility] Work Phone: 01-02-2022 20:19-0500 Heart rate 111 /min [facility] Work Phone: 01-02-2022 20:19-0500 Respiratory rate 22 /min [facility] Work Phone: 01-02-2022 20:19-0500 SaO2% (BldA) [Mass fraction] 95 % [facility] Work Phone: 01-02-2022 20:19-0500 Systolic blood pressure 158 mm[Hg] [facility] Work Phone: 01-02-2022 18:38-0500 Body height 182.88 cm [facility] Work Phone: 01-02-2022 18:38-0500 Body mass index (BMI) [Ratio] 41.8 kg/m2 [facility] Work Phone: 01-02-2022 18:38-0500 Body weight 139.7 kg [facility] Work Phone: Encounters Encounter Date Encounter Type Care Provider Facility Start: 04-28-2025 End: 04-29-2025 Refill Hardik Wilkerson DO Work Phone: Hematology/Oncology Comment on above: Refill Request Start: 03-08-2025 End: 03-08-2025 ambulatory Amrita Harris Facility:[facility] Start: 02-04-2025 End: 02-04-2025 ambulatory Amrita Harris Facility:[facility] Start: 02-03-2025 End: 02-03-2025 Patient encounter procedure Antonio Brown MD Work Phone: Urology Comment on above: Malignant neoplasm o f testicle, unspecified laterality, 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 Floyd Guardado MD Work Phone: [facility] Work Phone: Start: 01-14-2025 End: 01-14-[address] Floyd Guardado MD -Laboratory, [facility] Start: 01-14-2025 End: 01-14-2025 ambulatory Floyd Guardado Facility:[facility] Start: 01-06-2025 End: 01-06-2025 Patient encounter procedure Caleb Carballo DPM -Laboratory , Specimen Work Phone: Start: 01-06-2025 End: 01-06-2025 ambulatory Floyd Guardado Facility:[facility] Start: 01-04-2025 End: 01-05-2025 Refill Hardik Wilkerson DO Work Phone: Hematology/Oncology Comment on above: Refill Request Start: 12-20-2024 End: 12-20-2024 Patient encounter procedure Kristi BENDERC -Laboratory, [place] Work Phone: Start: 12-20-2024 End: 12-20-2024 ambulatory Floyd Guardado Facility:[facility] Start: 12-02-2024 End: 12-02-[address] Floyd Guardado MD -[facility] Start: 12-02-2024 End: 12-02-2024 ambulatory Floyd Guardado Facility:[facility] Start: 11-11-2024 End: 11-11-2024 Emergency department patient visit Dr. Mahad Reyna -Emergency Department Work Phone: Start: 11-05-2024 End: 11-05-2024 ambulatory FLOYD GUARDADO Facility:[facility] Start: 10-12-2024 End: 10-12-2024 Refill Hardik Wilkerson DO Work Phone: Hematology/Oncology Comment on above: Refill Request Start: 10-07-2024 End: 10-07-2024 Patient encounter procedure Antonio Brown MD Work Phone: Urology Comment on above: Malignant neoplasm o f testicle, unspecified laterality, unspecified whether descended or undescended (HCC) (Primary Dx) Start: 10-07-2024 End: 10-11-2024 ambulatory Antonio Brown MD Work Phone: Urology Start: 09-09-2024 End: 09-09-2024 ambulatory FLOYD GUARDADO Facility:[facility] Start: 08-05-2024 End: 08-05-2024 ambulatory Floyd Guardado Facility:[facility] Start: 07-23-2024 End: 07-26-2024 Refill Hardik A Masci DO Work Phone: Hematology/Oncology Comment on above: Refill Request Start: 07-14-2024 End: 07-14-2024 ambulatory Floyd Guardado Facility:[facility] Start: 07-12-2024 End: 07-12-2024 ambulatory Qi Rankin Facility:[facility] Start: 07-12-2024 End: 07-12-2024 Patient encounter procedure Qi Rankin MD Work Phone: General Surgery Comment on above: Encounter for remova l of vascular catheter (Primary Dx) Start: 07-08-2024 End: 07-08-2024 ambulatory Hardik Wilkerson DO Work Phone: Hematology/Oncology Comment on above: 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) Start: 07-08-2024 End: 07-08-2024 Patient encounter procedure Hardik Wilkerson DO Work Phone: Hematology/Oncology Start: 07-06-2024 End: 07-06-2024 Patient encounter procedure Antonio Brown MD Work Phone: Urology Comment on above: Malignant neoplasm o f testicle, unspecified laterality, unspecified whether descended or undescended (HCC) (Primary Dx) Start: 07-06-2024 End: 07-09-2024 ambulatory Antonio Brown MD Work Phone: Urology Start: 07-02-2024 End: 07-02-2024 ambulatory Lab[facility] Replaced By [facility] Work Phone: Hematology/Oncology Comment on above: 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); 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); Stage 3b chronic kidney disease (HCC); 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, unspecified laterality (HCC); Malignant neoplasm of testicle, unspecified laterality, unspecified whether descended or undescended (HCC) Start: 07-02-2024 End: 07-02-2024 Subsequent hospital visit by physician Brunilda Replaced By [facility] ([facility]) Work Phone: Cat Scan Comment on above: 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) [C62.11] Start: 05-14-2024 Refill Hardik Chino Work Phone: Hematology/Oncology Comment on above: Refill Request Start: 05-05-2024 End: 05-05-2024 ambulatory Floyd Guardado Facility:[facility] Start: 04-30-2024 Refill Hardik Chino Work Phone: Hematology/Oncology Comment on above: Refill Request Start: 04-28-2024 Telephone encounter Hardik oswald DO Work Phone: Hematology/Oncology Comment on above: Patient Update Start: 04-28-2024 End: 04-28-2024 Patient encounter procedure Hardik Wilkerson DO Work Phone: Hematology/Oncology Start: 04-28-2024 End: 04-28-2024 ambulatory Lab[facility] Replaced By [facility] Work Phone: Hematology/Oncology Comment on above: 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); 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); Stage 3b chronic kidney disease (HCC); Seminoma of descended right testis (HCC); Low blood potassium 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); 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); Stage 3b chronic kidney disease (HCC); Seminoma of descended right testis (HCC) Start: 04-22-2024 End: 04-22-2024 ambulatory Lab[facility] Replaced By [facility] Work Phone: Hematology/Oncology Comment on above: 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) Start: 04-19-2024 End: 04-19-2024 Patient encounter procedure Alexus Palacios MD Work Phone: Hematology/Oncology Start: 04-19-2024 End: 04-19-2024 ambulatory Lab Port/[facility] Main Ca 1 Work Phone: Hematology/Oncology Comment on above: 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); 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); 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); Stage 3b chronic kidney disease (HCC) Start: 04-18-2024 Telephone encounter Hardik oswald DO Work Phone: Hematology/Oncology Comment on above: Results Start: 04-16-2024 Telephone encounter Izabela Yin RN Hematology/Oncology Comment on above: 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 Start: 04-15-2024 Telephone encounter Alexus Palacios MD Work Phone: Hematology/Oncology Comment on above: 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 Start: 04-15-2024 End: 04-15-2024 ambulatory Lab[facility] Replaced By [facility] Work Phone: Hematology/Oncology Comment on above: 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); 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) Start: 04-08-2024 End: 04-08-2024 ambulatory Lab[facility] Replaced By [facility] Work Phone: Hematology/Oncology Comment on above: 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) Start: 04-05-2024 Telephone encounter Hardik oswald DO Work Phone: Hematology/Oncology Comment on above: Results Start: 04-01-2024 End: 04-01-2024 ambulatory Lab[facility] Replaced By [facility] Work Phone: Hematology/Oncology Comment on above: 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); 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) Start: 03-30-2024 End: 03-30-2024 ambulatory Antonio Brown MD Work Phone: Urology Start: 03-30-2024 End: 03-30-2024 Patient encounter procedure Antonio Brown MD Work Phone: Urology Comment on above: 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); 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, unspecified laterality (HCC); Malignant neoplasm of testicle, unspecified laterality, unspecified whether descended or undescended (HCC) Start: 03-25-2024 End: 03-25-2024 ambulatory Lab[facility] Replaced By [facility] Work Phone: Hematology/Oncology Comment on above: 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) Start: 03-17-2024 End: 03-21-2024 Evaluation and management of inpatient ANTONIO BROWN Facility:[facility] Start: 03-16-2024 End: 03-16-2024 ambulatory Antonio Brown MD Work Phone: Urology Start: 03-16-2024 End: 03-16-2024 Patient encounter procedure Antonio Brown MD Work Phone: Urology Comment on above: 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) Start: 03-11-2024 Telephone encounter Hardik oswald DO Work Phone: Hematology/Oncology Comment on above: Appointment Start: 03-11-2024 End: 03-11-2024 ambulatory Lab[facility] Replaced By [facility] Work Phone: Hematology/Oncology Comment on above: 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); 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) Start: 03-09-2024 End: 03-09-2024 Unlisted evaluation and management service Nicki Adam APRN.CNP Work Phone: Urology Comment on above: NO SHOW (Primary Dx) Start: 03-09-2024 End: 03-09-2024 ambulatory Nicki Kia HUMAN RESOURCES RECEPTIONIST.ANESTHESIOLOGY PHYSICIAN Work Phone: Urology Start: 03-09-2024 End: 03-09-2024 Admission to establishment Pacc [facility] 8 Work Phone: Pre Anesthesia Start: 03-09-2024 End: 03-09-2024 Anesthesia consultation Pac Main 8 Work Phone: Pre Anesthesia Comment on above: Primary hypertension (Primary Dx); RONALD (obstructive sleep apnea); Mild intermittent asthma without complication; Retroperitoneal lymphadenopathy; Stage 3b chronic kidney disease (HCC); Anemia, unspecified type; 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); Autism; Type 2 diabetes mellitus without complication, without long-term current use of insulin (HCC); Depression with anxiety; Hyperparathyroidism due to renal insufficiency (HCC); Preop examination Start: 03-09-2024 End: 03-09-2024 Preprocedural examination done Pac Main 8 Work Phone: [facility] Work Phone: Start: 03-09-2024 Encounter for other preprocedural examination FLOYD GUARDADO [facility] Start: 03-05-2024 Refill Hardik Chino Work Phone: Hematology/Oncology Comment on above: Refill Request Start: 03-04-2024 Telephone encounter Hardik Huyen Francisco owsald DO Work Phone: Hematology/Oncology Comment on above: Follow Up Start: 03-03-2024 Telephone encounter Hardik Huyen Francisco oswald DO Work Phone: Hematology/Oncology Comment on above: Results Start: 03-03-2024 End: 03-03-2024 ambulatory Lab[facility] Replaced By [facility] Work Phone: Hematology/Oncology Comment on above: 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) Start: 03-03-2024 End: 03-03-2024 Office outpatient visit 25 minutes Hardik Wilkerson DO Work Phone: Hematology/Oncology Comment on above: 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); 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); Stage 3b chronic kidney disease (HCC); Leg swelling; Low blood potassium Start: 02-23-2024 End: 02-23-2024 ambulatory Lab[facility] Replaced By [facility] Work Phone: Hematology/Oncology Comment on above: 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) Start: 02-19-2024 Telephone encounter Maribel Hurley Urological & Comment on above: 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 Start: 02-18-2024 ambulatory Maribel david Urological & Start: 02-16-2024 End: 02-16-2024 Emergency department patient visit [facility]-Emergency Department Work Phone: Start: 02-16-2024 End: 02-16-2024 ambulatory Alexus aPlacios MD Work Phone: Hematology/Oncology Comment on above: 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); 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); Chronic gout of vertebrae, unspecified cause; Stage 3b chronic kidney disease (HCC) Start: 02-16-2024 End: 02-16-2024 Patient encounter procedure Alexus Palacios MD Work Phone: [facility] Start: 02-16-2024 End: 02-16-2024 ambulatory Lab Port/[facility] Main Ca 1 Work Phone: Hematology/Oncology Comment on above: 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); 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); Stage 3b chronic kidney disease (HCC) Start: 02-10-2024 Telephone encounter Alexus Palacios MD Work Phone: Hematology/Oncology Comment on above: 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 Start: 02-06-2024 End: 02-06-2024 ambulatory Lab/[facility] Replaced By [facility] Work Phone: Hematology/Oncology Comment on above: 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); 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) Start: 02-05-2024 Telephone encounter Hardik oswald DO Work Phone: Hematology/Oncology Comment on above: Appointment Start: 02-04-2024 Telephone encounter Hardik oswald DO Work Phone: Hematology/Oncology Comment on above: Edema Start: 02-04-2024 End: 02-04-2024 ambulatory Lab/[facility] Replaced By [facility] Work Phone: Hematology/Oncology Comment on above: Chronic gout of vert ebrae, unspecified cause Start: 02-02-2024 Telephone encounter Hardik oswald DO Work Phone: Hematology/Oncology Comment on above: Results Start: 01-27-2024 ambulatory Antonio peralta MD Work Phone: Urology Start: 01-27-2024 End: 01-27-2024 Subsequent hospital visit by physician Mai Way MD Work Phone: [id number] Comment on above: 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) [C62.11] Start: 01-27-2024 End: 01-27-2024 Patient encounter procedure Antonio Brown MD Work Phone: Urology Comment on above: 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); History of testicular cancer Start: 01-07-2024 Telephone encounter Hardik Singh darek DO Work Phone: Hematology/Oncology Comment on above: Biopsy Request Follow Up Start: 01-06-2024 End: 01-06-2024 ambulatory Hardik Wilkerson DO Work Phone: Hematology/Oncology Comment on above: 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); 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) Start: 01-06-2024 End: 01-06-2024 Patient encounter procedure Hardik Matson Aleenaana DO Work Phone: [facility] Start: 12-30-2023 End: 12-30-2023 ambulatory [facility] Work Phone: Start: 12-30-2023 End: 12-30-2023 Patient encounter procedure [facility] Start: 12-15-2023 ambulatory FLOYD GUARDADO [facility] Start: 11-14-2023 Preprocedural examin ation done Antonio Brown MD Work Phone: [facility] Work Phone: Start: 10-21-2023 End: 10-21-2023 Patient encounter procedure Antonio Brown MD Work Phone: Urology Comment on above: Malignant neoplasm o f testicle, unspecified laterality, unspecified whether descended or undescended (HCC) (Primary Dx); 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) Start: 10-21-2023 Telephone encounter Chas Snyder RN Hematology/Oncology Comment on above: Nm Pet Request Start: 10-17-2023 End: 10-17-2023 ambulatory Alexus Palacios MD Work Phone: Hematology/Oncology Comment on above: 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); 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); Seminoma of descended right testis (HCC); Stage 3b chronic kidney disease (HCC) Start: 10-17-2023 End: 10-17-2023 Patient encounter procedure Alexus Palacios MD Work Phone: [facility] Start: 10-15-2023 Telephone encounter Hardik oswald DO Work Phone: Hematology/Oncology Comment on above: Refill Request Start: 10-15-2023 End: 10-15-2023 ambulatory [facility] Work Phone: Start: 10-15-2023 End: 10-15-2023 Patient encounter procedure [facility] Work Phone: Start: 10-13-2023 End: 10-13-2023 ambulatory Lab/Port [facility] Work Phone: Hematology/Oncology Comment on above: 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 Floyd Guardado Work Phone: [facility] Work Phone: Start: 10-02-2023 End: 10-02-[address] 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); 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); Platelets decreased (HCC) Start: 09-30-2023 End: 09-30-2023 Patient encounter procedure Hardik Wilkerson DO Work Phone: [facility] Start: 09-30-2023 Telephone encounter Hardik oswald DO Work Phone: Hematology/Oncology Comment on above: AVS 09/30/23 Start: 09-29-2023 End: 09-29-2023 ambulatory Lab/[facility] Replaced By [facility] Work Phone: Hematology/Oncology Comment on above: 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 Floyd Guardado Work Phone: [facility] Work Phone: Start: 09-26-2023 End: 09-26-[address] Floyd Guardado Work Phone: [facility] Out Work Phone: Start: 09-25-2023 End: 09-25-2023 ambulatory Lab/[facility] Replaced By [facility] Work Phone: Hematology/Oncology Comment on above: Anemia of chronic di sease Start: 09-25-2023 Telephone encounter Hardik oswald DO Work Phone: Hematology/Oncology Comment on above: transfusion urgent results Start: 09-22-2023 Telephone encounter Hardik oswald DO Work Phone: Hematology/Oncology Start: 09-22-2023 End: 09-22-2023 ambulatory Lab/[facility] Replaced By [facility] Work Phone: Hematology/Oncology Comment on above: 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) Start: 09-17-2023 End: 09-17-2023 Subsequent hospital visit by physician Ct Prep [facility] Comment on above: Malignant neoplasm o f descended right testis [C62.11] 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) [C62.11] Start: 09-17-2023 End: 09-17-2023 ambulatory Treatment Rm 10 [facility] Work Phone: Hematology/Oncology Comment on above: 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) (Primary Dx); Seminoma of descended right testis (HCC); 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) Start: 09-16-2023 Telephone encounter Hardik oswald DO Work Phone: Hematology/Oncology Comment on above: Patient Question Start: 09-16-2023 End: 09-16-2023 ambulatory Treatment Rm 13 [facility] Work Phone: Hematology/Oncology Comment on above: 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); 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); Seminoma of descended right testis (HCC) Start: 09-08-2023 Telephone encounter Hardik oswald DO Work Phone: Hematology/Oncology Comment on above: Results (Low potassi um) Start: 09-08-2023 End: 09-08-2023 ambulatory Lab/[facility] Replaced By [facility] Work Phone: Hematology/Oncology Comment on above: 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) Start: 09-01-2023 End: 09-01-2023 ambulatory Lab/[facility] Replaced By [facility] Work Phone: Hematology/Oncology Comment on above: 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); 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) Start: 08-27-2023 End: 08-27-2023 ambulatory Treatment Rm 10 [facility] Work Phone: Hematology/Oncology Comment on above: 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); Seminoma of descended right testis (HCC) Start: 08-25-2023 Telephone encounter Hardik oswald DO Work Phone: Hematology/Oncology Comment on above: Transfusion Start: 08-22-2023 Telephone encounter Bianca hernandez APRN.ANESTHESIOLOGY PHYSICIAN Work Phone: Hematology/Oncology Start: 08-21-2023 Telephone encounter Hardik oswald DO Work Phone: Hematology/Oncology Comment on above: Symptoms Start: 08-15-2023 End: 08-15-2023 Subsequent hospital visit by physician Ct Prep Replaced By [facility] Cat Scan Comment on above: 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] Start: 08-08-2023 End: 08-08-2023 ambulatory Treatment Rm 11 [facility] Replaced By [facility] Work Phone: Hematology/Oncology Comment on above: 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) (Primary Dx); Seminoma of descended right testis (HCC); 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) Start: 08-07-2023 End: 08-07-2023 ambulatory Treatment Rm 8 Replaced By [facility] Work Phone: Hematology/Oncology Comment on above: 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) (Primary Dx); Seminoma of descended right testis (HCC); 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) Start: 08-06-2023 End: 08-06-2023 ambulatory Treatment Rm 4 [facility] Replaced By [facility] Work Phone: Hematology/Oncology Comment on above: 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) (Primary Dx); Seminoma of descended right testis (HCC); 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) Start: 08-04-2023 Telephone encounter Hardik oswald DO Work Phone: Hematology/Oncology Comment on above: Follow Up Start: 08-04-2023 End: 08-04-2023 ambulatory Treatment Rm 3 [facility] Replaced By [facility] Work Phone: Hematology/Oncology Comment on above: 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) (Primary Dx); Seminoma of descended right testis (HCC); 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) Start: 08-01-2023 End: 08-01-2023 Patient encounter procedure Hardik Wilkerson DO Work Phone: [facility] Start: 08-01-2023 End: 08-01-2023 ambulatory Lab/Port [place] Replaced By [facility] Work Phone: Hematology/Oncology Comment on above: 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 Floyd Guardado Work Phone: [facility] Work Phone: Start: 07-25-2023 End: 07-25-[address] 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) (Primary Dx); Seminoma of descended right testis (HCC); 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) Start: 07-17-2023 End: 07-17-2023 ambulatory Treatment Rm 11 [facility] Work Phone: Hematology/Oncology Comment on above: 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) (Primary Dx); Seminoma of descended right testis (HCC); 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) Start: 07-16-2023 Telephone encounter Janay Looney matology/Oncology Comment on above: 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 (C1D1 Post Treatment Call (Carboplatin/Etoposide) ) Start: 07-16-2023 End: 07-16-2023 ambulatory Treatment Rm 12 [facility] Work Phone: Hematology/Oncology Comment on above: 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) (Primary Dx); Seminoma of descended right testis (HCC); 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) Start: 07-14-2023 Telephone encounter Hardik oswald DO Work Phone: Hematology/Oncology Comment on above: Symptom Management Start: 07-14-2023 End: 07-14-2023 ambulatory Treatment Rm 7 [place] Replaced By [facility] Work Phone: Hematology/Oncology Comment on above: 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) (Primary Dx); Seminoma of descended right testis (HCC); 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) Start: 07-11-2023 End: 07-11-2023 Orders Only Hardik Wilkerson DO Work Phone: Hematology/Oncology Comment on above: 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) Encounter for educat ion (Primary Dx) 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 (Antiemetic ) Start: 07-10-2023 End: 07-10-2023 ambulatory QIHuyen HAMMOND ÓSCAR Facility:[facility] Start: 07-08-2023 End: 07-08-2023 Subsequent hospital visit by physician Brunilda Replaced By [facility] (I-Stat) Work Phone: Cat Scan Comment on above: 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) [C62.11] Start: 07-07-2023 Telephone encounter Financial Navigator [place] Work Phone: Financial Services Comment on above: Benefits Investigati on Start: 07-03-2023 Telephone encounter Janay Shields RN He matology/Oncology Comment on above: 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 (Introduction ) AVS 07/03; CHEMO STAR T Results Start: 07-03-2023 End: 07-03-2023 ambulatory Hardik Wilkerson DO Work Phone: Hematology/Oncology Comment on above: 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); Seminoma of descended right testis (HCC); 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); Screening for HIV (human immunodeficiency virus) Start: 07-03-2023 End: 07-03-2023 Patient encounter procedure Hardik Wilkerson DO Work Phone: [facility] Start: 07-02-2023 Telephone encounter Chas Snyder RN Hematology/Oncology Comment on above: 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 Start: 07-01-2023 Telephone encounter Hardik oswald DO Work Phone: Hematology/Oncology Comment on above: New Patient Start: 06-30-2023 End: 07-01-2023 Orders Only Neil Barriga MD Work Phone: Urology Comment on above: Abdominal pain, unsp ecified abdominal location (Primary Dx) 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 Floyd Guardado Work Phone: [facility] Work Phone: Start: 06-20-2023 End: 06-20-2023 Emergency department patient visit Dr. Floyd Guardado Work Phone: [facility] Work Phone: Start: 06-17-2023 End: 06-17-[address] Floyd Guardado Work Phone: [facility] Work Phone: Start: 06-10-2023 End: 06-10-2023 Emergency department patient visit Dr. Floyd Guardado Work Phone: [facility]Emergency Department Work Phone: Start: 06-05-2023 ambulatory Facility:[facility] Start: 06-05-2023 End: 06-05-[address] Floyd Guardado Work Phone: [facility] Work Phone: Start: 06-03-2023 End: 06-03-[address] Floyd Guardado [facility] Phone[facility]: Start: 05-26-2023 End: 05-26-[address] Floyd Guardado Work Phone: [facility] Work Phone: Start: 05-26-2023 End: 05-26-[address] Floyd Guardado Work Phone: [facility]-Ultrasound , [facility] Work Phone: Start: 05-19-2023 End: 05-19-[address] Floyd Guardado Work Phone: [facility] Work Phone: Start: 05-19-2023 End: 05-19-[address] Floyd Guardado Work Phone: [facility] Work Phone: Start: 05-15-[address] Floyd Guardado Work Phone: [facility] Start: 05-15-2023 End: 05-15-[address] Floyd Guardado Work Phone: [facility] Work Phone: Start: 05-14-2023 End: 05-14-2023 Emergency department patient visit [facility]Emergency [facility] Work Phone: Start: 05-14-2023 End: 05-14-[address] Floyd Guardado Work Phone: [facility] Work Phone: Start: 05-14-2023 End: 05-14-2023 Patient encounter procedure [facility] , Specimen Work Phone: Start: 05-06-2023 Orders Only Diana Martinez MD Work Phone: Endocrine Surgery Comment on above: Primary hyperparathy roidism (HCC) (Primary Dx) Start: 04-10-2023 End: 04-10-2023 ambulatory [facility] Work Phone: Start: 04-10-2023 End: 04-10-2023 Patient encounter procedure [facility] Start: 02-12-2023 End: 02-12-2023 ambulatory [facility] Work Phone: Start: 02-12-2023 End: 02-12-2023 Patient encounter procedure [facility], [facility] Start: 02-05-2023 End: 02-05-2023 ambulatory [facility] Work Phone: Start: 02-05-2023 End: 02-05-2023 Patient encounter procedure [facility] Start: 01-28-2023 End: 01-28-2023 ambulatory [facility] Work Phone: Start: 01-28-2023 End: 01-28-2023 [facility] Start: 01-23-2023 End: 01-23-2023 ambulatory [facility] Work Phone: Start: 01-23-2023 End: 01-23-2023 Patient encounter procedure [facility] Start: 10-29-2022 End: 11-16-2022 [facility]charged [facility] Start: 10-17-2022 End: 10-17-2022 ambulatory [facility] Work Phone: Start: 10-17-2022 End: 10-17-2022 [facility] Start: 10-01-2022 End: 10-16-2022 ambulatory [facility] Work Phone: Start: 10-01-2022 End: 10-16-2022 [facility] Start: 09-17-2022 End: 09-17-2022 ambulatory [facility] Work Phone: Start: 09-17-2022 End: 09-17-2022 [facility] Start: 08-02-2022 End: 08-02-[address] Floyd Guardado Work Phone: [facility] Work Phone: Start: 08-02-2022 End: 08-02-[address] Floyd Guardado Work Phone: [facility] Start: 07-30-2022 End: 08-16-[address] Floyd Guardado Work Phone: [facility] Work Phone: Start: 07-30-2022 End: 08-16-[address] Floyd Guardado [facility] Start: 07-30-[address] Floyd Guardado [facility] Start: 07-08-2022 End: 07-08-[address] Floyd Guardado Work Phone: [facility] Work Phone: Start: 07-08-2022 End: 07-08-[address] Floyd Guardado [facility] Start: 07-02-2022 End: 07-17-[address] Floyd Guardado Work Phone: [facility] Work Phone: Start: 07-02-2022 End: 07-17-[address] Floyd Guardado [facility] Start: 07-02-[address] Floyd Guardado Work Phone[facility] Start: 06-23-2022 End: 06-23-2022 Emergency department patient visit Dr. Floyd Guardado Work Phone: [facility]Emergency Department Start: 06-19-2022 End: 06-19-[address] Floyd Guardado [facility] Start: 06-04-2022 End: 06-04-2022 Emergency department patient visit Dr. 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 Floyd Guardado Work Phone: [facility] Start: 05-08-2022 End: 05-08-[address] Floyd Guardado [facility] Start: 05-08-2022 End: 05-08-[address] Floyd Guardado Work Phone: [facility] Start: 02-18-2022 Telephone encounter [facility] Work Phone: [facility] Comment on above: Discontinuation Orde r Request Start: 02-17-2022 Telephone encounter Maria D Alex APRN.ANESTHESIOLOGY PHYSICIAN Work Phone: [facility] Comment on above: Results Start: 02-15-2022 End: 02-15-2022 [facility] Start: 02-14-2022 End: 02-14-2022 Patient encounter procedure Ck Gates APRN.ANESTHESIOLOGY PHYSICIAN Work Phone: [facility] Comment on above: Dysuria (Primary Dx) Start: 01-22-2022 End: 01-22-2022 [facility] Start: 01-02-2022 End: 01-02-2022 [facility] Start: 11-21-2021 End: 11-21-2021 [facility] Start: 11-01-2021 [facility] Start: 08-13-2021 End: 08-13-2021 Subsequent hospital visit by physician Xr [facility] Work Phone: Radiology Comment on above: Foot pain, left [M79 .672] Procedures Date Procedure Procedure Detail Performing Clinician Start: 02-03-2025 Urnls dip stick/tabl et rgnt auto w/o microscopy Bulk Order Provider Start: 02-03-2025 Ct abdomen & pelvis w/o contrast material Alvina Alfaro MD Work Phone: Start: 02-03-2025 Ct thorax w/o contra st material Avlina Alfaro MD Work Phone: Start: 01-06-2025 Gram stain microscopy Ramila Guardado MD Work Phone: Start: 01-06-2025 Microbial culture, routine Dr. Floyd Guardado MD Work Phone: Start: 12-02-[address] Floyd Guardado MD Work Phone: Start: 11-11-2024 SARS-CoV-2, Influenz a & RSV (PCR) Dr. Floyd Guardado MD Work Phone: Start: 11-11-2024 X-ray of chest, PA a nd lateral views Dr. Floyd Guardado MD Work Phone: Start: 10-07-2024 Urnls dip stick/tabl et rgnt auto w/o microscopy Antonio Brown MD Work Phone: Start: 07-06-2024 Urnls dip stick/tabl et rgnt auto w/o microscopy Bulk Order Provider Start: 04-28-2024 Blood count complete auto&auto difrntl wbc Hardik Floodi DO Work Phone: Start: 04-19-2024 Alpha-fetoprotein serum Hardik Matson Masci DO Work Phone: Start: 04-15-2024 Basic metabolic pane l calcium total Hardik Matson Masci DO Work Phone: Start: 04-08-2024 Comprehensive metabo lic panel Hardik Matson Masci DO Work Phone: Start: 04-01-2024 Basic metabolic pane l calcium total Hardik Matson Masci DO Work Phone: Start: 03-30-2024 Urnls dip stick/tabl et rgnt auto w/o microscopy Bulk Order Provider Start: 03-25-2024 Comprehensive metabo lic panel Hardik A Masci DO Work Phone: Start: 03-18-2024 Echocardiography [facility] Start: 03-16-2024 Urnls dip stick/tabl et rgnt auto w/o microscopy Bulk Order Provider Start: 03-11-2024 Basic metabolic pane l calcium total Hardik Matson Masci DO Work Phone: Start: 03-09-2024 Antibody screen [facility] Comment on above: Order Comment: Speci men Type: BLOOD SPECIMENOrdering Facility: [facility] Address: [address] [place] [address] Performed By: #### T [id number] ####CC MAIN BLOOD BANKCLIA [id number] [address] [place] Start: 03-03-2024 Basic metabolic pane l calcium total Hardik Floodi DO Work Phone: Start: 02-23-2024 Blood count complete auto&auto difrntl wbc Hardik Matson Masci DO Work Phone: Start: 02-16-2024 Plain x-ray of elbow Start: 02-16-2024 Alpha-fetoprotein serum Alexus Palacios MD Work Phone: Start: 02-06-2024 Basic metabolic pane l calcium total Hardik Matson Masci DO Work Phone: Start: 02-04-2024 Assay of blood/uric acid Hardik Matson Masci DO Work Phone: Start: 01-27-2024 Biopsy bone trocar/n eedle superficial Hardik Matson Masci DO Work Phone: Start: 01-27-2024 Gluc bld gluc mntr d ev cleared fda spec home use Mai Way MD Work Phone: Start: 01-27-2024 Urnls dip stick/tabl et rgnt auto w/o microscopy Bulk Order Provider Start: 10-13-2023 Basic metabolic pane l calcium total Hardik Matson Masci DO Work Phone: Start: 10-13-2023 CBC + DIFF Hardik A Mas ci DO Work Phone: Start: 10-06-2023 CBC + DIFF Hardik A Mas ci DO Work Phone: Start: 09-29-2023 Basic metabolic pane l calcium total Hardik A Masci DO Work Phone: Start: 09-25-2023 Blood count complete auto&auto difrntl wbc Hardik A Masci DO Work Phone: Start: 09-22-2023 Basic metabolic pane l calcium total Hardik A Masci DO Work Phone: Start: 09-17-2023 Ct abdomen & pelvis w/o contrast material Hardik A Masci DO Work Phone: Start: 09-17-2023 Ct thorax w/o contra st material Hardik A Masci DO Work Phone: Start: 09-16-2023 End: 09-16-2023 Blood count complete auto&auto difrntl wbc Hardik A Masci DO Work Phone: Start: 09-08-2023 Blood count complete auto&auto difrntl wbc Hardik A Masci DO Work Phone: Start: 09-01-2023 End: 09-01-2023 Basic metabolic panel calcium total Hardik A Masci DO Work Phone: Start: 08-25-2023 Blood count complete auto&auto difrntl wbc Hardik A Masci DO Work Phone: Start: 08-15-2023 Ct abdomen & pelvis w/o contrast material Hardik A Masci DO Work Phone: Start: 08-01-2023 Cul bact xcpt urine blood/stool aerobic isol Hardik A Masci DO Work Phone: Start: 08-01-2023 Alpha-fetoprotein serum Hardik A Masci DO Work Phone: Start: 08-01-2023 CBC + DIFF Hardik Singh ci DO Work Phone: Start: 07-14-2023 Alpha-fetoprotein serum Hardik A Masci DO Work Phone: Start: 07-08-2023 Ct abdomen & pelvis w/o contrast material Hardik A Masci DO Work Phone: Start: 07-08-2023 Ct thorax w/o contra st material Hardik A Masci DO Work Phone: Start: 06-24-[address] Floyd Guardado Work Phone: Start: 06-03-2023 CT of chest without contrast Dr. Floyd Guardado Work Phone: Start: 05-26-2023 Ultrasound of scrotu m with Doppler and color flow imaging Dr. Floyd Guardado Work Phone: Start: 05-19-2023 Biopsy/Inj or Needle Placement Dr. Floyd Guardado Work Phone: Start: 05-14-[address] Floyd Guardado Work Phone: Start: 05-14-2023 CT of abdomen and pe lvis without contrast Start: 05-06-2023 Us soft tissue head & neck real time imge pablo Martinez MD Work Phone: Start: 02-12-2023 Radioisotope scan of parathyroid Start: 06-04-2022 Plain chest X-ray Dr. Kay Guardado Work Phone: Start: 06-04-2022 Gluc bld gluc mntr d ev cleared fda spec home use [facility] Provider Start: 06-04-2022 Urnls dip stick/tabl et rgnt auto w/o microscopy [facility] Provider Start: 02-14-2022 Urnls dip stick/tabl et rgnt auto w/o microscopy [facility] Provider Start: 01-02-2022 Urine culture Start: 08-13-2021 Radex foot complete minimum 3 views Miryam Cohen PA-C Work Phone: Plan of Treatment Date Care Activity Detail Author Start: 09-09-2025 Creatinine measurement Serum Creatin ine [facility] Start: 07-18-2025 Influenza vaccination Influenz a Vaccine (Season Ended) [facility] Start: 07-02-2025 Creatinine measurement Serum Creatin ine [facility] Start: 06-01-2025 End: 2025 [id number] [Mass/volume] in Serum or Plasma ALPHA FETOPROTEIN Lab Routine Malignant neoplasm of testicle, unspecified laterality, unspecified whether descended or undescended (HCC) Screening for genitourinary condition 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) Expected: 06/01/2025 (Approximate), Expires: 2025 [facility] Comment on above: Expected: 06/01/2025 (Approximate), Expires: 2025 Start: 04-28-2025 Complete blood count Hemoglobin/Fabian tocrit [facility] Start: 04-28-2025 Creatinine measurement Serum Creatin ine [facility] Start: 04-19-2025 BP Controlled (<130/80) BP Controlle d (<130/80) [facility] Start: 04-19-2025 Complete blood count Hemoglobin/Fabian tocrit [facility] Start: 04-19-2025 Creatinine measurement Serum Creatin ine [facility] Start: 04-15-2025 Complete blood count Hemoglobin/Fabian tocrit [facility] Start: 04-15-2025 Creatinine measurement Serum Creatin ine [facility] Start: 04-08-2025 Creatinine measurement Serum Creatin ine [facility] Start: 04-01-2025 Creatinine measurement Serum Creatin ine [facility] Start: 03-30-2025 BP Controlled (<130/80) BP Controlle d (<130/80) [facility] Start: 03-25-2025 Creatinine measurement Serum Creatin ine [facility] Start: 03-21-2025 Complete blood count Hemoglobin/Fabian tocrit [facility] Start: 03-19-2025 Complete blood count Hemoglobin/Fabian tocrit [facility] Start: 03-19-2025 Creatinine measurement Serum Creatin ine [facility] Start: 03-11-2025 Creatinine measurement Serum Creatin ine [facility] Start: 03-09-2025 [facility] Start: 03-09-2025 Creatinine measurement Serum Creatin ine [facility] Start: 03-03-2025 Creatinine measurement Serum Creatin ine [facility] Start: 02-22-2025 Complete blood count Hemoglobin/Fabian tocrit [facility] Start: 02-22-2025 Creatinine measurement Serum Creatin ine [facility] Start: 02-15-2025 Complete blood count Hemoglobin/Fabian tocrit [facility] Start: 02-15-2025 Creatinine measurement Serum Creatin ine [facility] Start: 02-05-2025 Creatinine measurement Serum Creatin ine [facility] Start: 01-13-2025 End: 01-13-2025 Patient encounter procedure Radiology Comment on above: CT 3 month follow up Start: 01-06-2025 End: 01-06-2025 ambulatory [facility] Comment on above: Q2MO (SO) HCG/AFP* 6 MO OV/LAB EARLY* Start: 12-17-2024 Complete blood count Hemoglobin/Fabian tocrit [facility] Start: 12-17-2024 Creatinine measurement Serum Creatin ine [facility] Start: 11-14-2024 Complete blood count Hemoglobin/Fabian tocrit [facility] Start: 11-14-2024 Creatinine measurement Serum Creatin ine [facility] Start: 11-11-2024 [facility] Start: 11-04-2024 End: 11-04-2024 ambulatory 11/04/2024 10:30 AM EST Results Only Leon [facility] [address] [place] [address] Q2MO (SO) HCG/AFP* Leon [place] [facility] Comment on above: Q2MO (SO) HCG/AFP* Start: 10-29-2024 End: 10-29-2024 ambulatory 10/29/2024 10:00 AM EST Infusion Center Hematology/Oncology [address] [place] [address] Wstr, Lab/Port [place] Replaced By [facility] [address] [place] [address] Q2MO (SO)SERUM BETA-HCG/AFP(PORT)* Hematology/Oncology Comment on above: Q2MO (SO)SERUM BETA- HCG/AFP(PORT)* Start: 10-07-2024 End: 10-07-2024 Patient encounter procedure 10/07/2024 1:45 PM EST Office Visit Urology [address] [address] Stephanie, MD Antonio [address] [place] [address] 3 month follow up per cc chart message Urology Comment on above: 3 month follow up pe r cc chart message Start: 10-06-2024 End: 01-05-2025 [id number] [Mass/volume] in Serum or Plasma ALPHA FETOPROTEIN Lab Routine Malignant neoplasm of testicle, unspecified laterality, unspecified whether descended or undescended (HCC) Expected: 10/06/2024, Expires: 01/05/2025 [facility] Comment on above: Expected: 10/06/2024 , Expires: 01/05/2025 Start: 10-06-2024 End: 01-05-2025 Choriogonadotropin.beta subunit [Units/volume] in Serum or Plasma BETA HCG QUANT TUMOR MARKER Lab Routine Malignant neoplasm of testicle, unspecified laterality, unspecified whether descended or undescended (HCC) Expected: 10/06/2024, Expires: 01/05/2025 [facility] Comment on above: Expected: 10/06/2024 , Expires: 01/05/2025 Start: 09-09-2024 End: 09-09-2024 ambulatory 09/09/2024 10:30 AM EDT Results Only Leon [place] [facility] [address] [place] [address] Q2MO (SO) HCG/AFP* [place] [facility] Laboratory Comment on above: Q2MO (SO) HCG/AFP* Start: 08-27-2024 End: 08-27-2024 ambulatory 08/27/2024 10:00 AM EDT Infusion Center Hematology/Oncology [address] [place] [address] Wstr, Lab/Port Fabian Replaced By [facility] [address] [place] [address] Q2MO (SO)SERUM BETA-HCG/AFP(PORT)* Hematology/Oncology Comment on above: Q2MO (SO)SERUM BETA- HCG/AFP(PORT)* Start: 07-18-2024 Covid-19 Vaccine ( season) Covid-19 Vaccine ( season) [facility] Start: 07-18-2024 Influenza vaccination [facility] Start: 07-12-2024 End: 07-12-2024 Patient encounter procedure 07/12/2024 3:00 PM EDT Office Visit General Surgery [address] [place] [address] Qi Rankin MD [address] [place] [address] port removal General Surgery Comment on above: port removal Start: 07-08-2024 End: 07-08-2024 ambulatory 07/08/2024 9:50 AM EDT Visit (SP) Office Hematology/Oncology [address] [place] [address] Hardik Wilkerson DO [address] [place] [address] OV(PORT)/CT 07/02* Hematology/Oncology Comment on above: OV(PORT)/CT 07/02* Start: 07-06-2024 End: 10-05-2024 Basic metabolic 2000 panel - Serum or Plasma BASIC METABOLIC PANEL Lab Routine Malignant neoplasm of testicle, unspecified laterality, unspecified whether descended or undescended (HCC) Expected: 07/06/2024, Expires: 10/05/2024 [facility] Comment on above: Expected: 07/06/2024 , Expires: 10/05/2024 Start: 07-06-2024 End: 07-06-2024 Patient encounter procedure 07/06/2024 10:45 AM EDT Office Visit Urology [address] [address] Weight, MD Antonio [address] [place] [address] 3 month follow up per cc chart message Urology Comment on above: 3 month follow up pe r cc chart message Start: 07-02-2024 End: 10-01-2024 Basic metabolic 2000 panel - Serum or Plasma BASIC METABOLIC PANEL Lab Routine 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, unspecified laterality (HCC) Malignant neoplasm of testicle, unspecified laterality, unspecified whether descended or undescended (HCC) Expected: 07/02/2024 (Approximate), Expires: 10/01/2024 [facility] Comment on above: Expected: 07/02/2024 (Approximate), Expires: 10/01/2024 Start: 07-02-2024 End: 10-01-2024 CBC panel - Blood by Automated count COMPLETE BLOOD COUNT Lab Routine 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, unspecified laterality (HCC) Malignant neoplasm of testicle, unspecified laterality, unspecified whether descended or undescended (HCC) Expected: 07/02/2024, Expires: 10/01/2024 [facility] Comment on above: Expected: 07/02/2024 , Expires: 10/01/2024 Start: 07-02-2024 End: 07-02-2024 Patient encounter procedure 07/02/2024 10:40 AM EDT Appointment Cat Scan [address] [place] [address] 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] Cat Scan Comment on above: 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) [C62.11] Start: 07-02-2024 End: 07-02-2024 ambulatory 07/02/2024 8:45 AM EDT [facility] Hematology/Oncology [address] [place] [address] Wstr, Lab/Port [place]ian Replaced By [facility] [address] [place] [address] RECHECK BMP/ Q2MO (SO)SERUM BETA-HCG/AFP(PORT)* Hematology/Oncology Comment on above: RECHECK BMP/ Q2MO (S O)SERUM BETA-HCG/AFP(PORT)* Start: 07-02-2024 End: 07-02-2024 Patient encounter procedure Cat Scan Comment on above: 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) [C62.11] 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) [C62.11]; 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]; Stage 3b chronic kidney disease (HCC) [N18.32]; 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] Start: 05-15-2024 Hemoglobin A1c measurement HbA1C [facility] Start: 04-29-2024 End: 04-29-2024 ambulatory Hematology/Oncology Comment on above: QWK BMP* (SO)QWK BMP(S)* Start: 04-28-2024 End: 04-28-2024 ambulatory Hematology/Oncology Comment on above: 2 MO OV(PORT)/LABS 6 /5* 2 MO OV(PORT)/LABS 6 /6* (SO)QWK BMP(S)* BMP/2 MO OV(PORT)/LA BS 6/* Start: 04-22-2024 End: 04-22-2024 ambulatory Hematology/Oncology Comment on above: QWK BMP/CBC/CMP/Beta HCG/AFP/LDH* CBC/CMP(S)/BETA HCG/ AFP/LDH* Start: 04-21-2024 End: 04-21-2024 ambulatory 04/21/2024 10:15 AM EDT Infusion Center Hematology/Oncology [address] [place] [address] Wstr, Lab/Port [place] Replaced By [facility] [address] [place] [address] CBC/CMP/Beta HCG/AFP/LDH Hematology/Oncology Comment on above: CBC/CMP/Beta HCG/AFP /LDH Start: 04-19-2024 End: 04-19-2024 Follow-up encounter 04/19/2024 10:30 AM EDT Visit (SP) Office Hematology/Oncology [address] [place] [address] Alexus Palacios MD [address] [place] [address] follow up Hematology/Oncology Comment on above: follow up Start: 04-19-2024 End: 04-19-2024 ambulatory 04/19/2024 9:40 AM EDT Infusion Center Hematology/Oncology [address] [place] [address] labs Hematology/Oncology Comment on above: labs Start: 04-15-2024 End: 04-15-2024 ambulatory Hematology/Oncology Comment on above: QWK BMP* (SO)QWK BMP(S)* Start: 04-12-2024 End: 07-12-2024 Mvpaq-2-Xhhtjwdizjg [Mass/volume] in Serum or Plasma ALPHA FETOPROTEIN BL Lab Routine 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 Work Phone: Comment on above: Expected: 04/01/2024 , Expires: 07/01/2024 Start: 04-01-2024 End: 04-01-2024 ambulatory Hematology/Oncology Comment on above: QWK BMP* (SO)QWK BMP(S)* Start: 03-30-2024 End: 03-30-2024 Patient encounter procedure 03/30/2024 2:00 PM EDT Office Visit Urology [address] [address] Weight, MD Antonio [address] [place], [place] [id number] Pathology / staple removal Urology Comment on above: Pathology / staple r emoval Start: 03-25-2024 End: 03-25-2024 ambulatory 03/25/2024 10:30 AM EDT Infusion Center Hematology/Oncology [address], [place] [id number] Wstr, Lab/Port Fabian Replaced By [facility] [address] [place] [id number] QWK BMP* Hematology/Oncology Comment on above: QWK BMP* Start: 03-20-2024 End: 06-19-2024 CONFIRM BLOOD TYPE CONFIRM BLOOD TYPE Blood Bank Routine 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 Work Phone: Comment on above: Expected: 03/15/2024 (Approximate), Expires: 06/14/2024 Start: 03-15-2024 End: 06-14-2024 Urate [Mass/volume] in Serum or Plasma URIC ACID BLOOD Lab Routine Chronic gout of vertebrae, unspecified cause Expected: 03/15/2024, Expires: 06/14/[address] [facility] Work Phone: Comment on above: Expected: 03/15/2024 , Expires: 06/14/2024 Start: 03-11-2024 End: 03-11-2024 ambulatory Hematology/Oncology Comment on above: BMP * (SO)BMP(S)(PORT)* Start: 02-16-2024 End: 02-16-2024 [facility] Start: 02-02-2024 End: 05-03-2024 Urate [Mass/volume] in Serum or Plasma URIC ACID BLOOD Lab Routine Chronic gout of vertebrae, unspecified cause Expected: 02/02/2024, Expires: 05/03/[address] 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 Work Phone: Comment on above: Expected: 07/07/2023 , Expires: 07/29/2024 Start: 07-03-2023 End: 09-02-2023 25-hydroxyvitamin D3 [Mass/volume] in Serum or Plasma [facility] Work Phone: Comment on above: Expected: 07/03/2023 , Expires: 09/02/2023 Start: 07-03-2023 End: 09-02-2023 Calcitriol [Mass/volume] in Serum or Plasma [facility] Work Phone: Comment on above: Expected: 07/03/2023 , Expires: 09/02/2023 Start: 07-03-2023 End: 09-02-2023 Parathyrin.intact [Mass/volume] in Serum or Plasma 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 Work Phone: Comment on above: Expected: 06/30/2023 , Expires: 08/30/2023 Start: 06-24-2023 [facility] Start: 06-17-2023 Patient referral [facility] Work Phone: Start: 06-05-2023 Patient referral [facility] Work Phone: Start: 05-19-2023 Bx/exc lymph node ne edle superficial NEEDLE BIOPSY LYMPH NODES [facility] Start: 05-19-2023 Following clinical pathway protocol [facility] Start: 05-19-2023 Catheterization of vein [facility] Start: 05-19-2023 Oxygen therapy [facility] Start: 05-19-2023 Patient discharge [facility] Start: 05-19-2023 Vital signs measurements [facility] Start: 05-14-2023 Bacteria identified in Urine by Culture Urine Culture [facility] Start: 05-14-2023 [facility] Start: 11-17-2022 DEPRESSION ASSESSMENT DEPRESSION ASS ESSMENT [facility] Start: 07-18-2022 Influenza vaccination [facility] Start: 02-14-2022 End: 04-16-2022 Bacteria identified in Urine by Culture URINE CULTURE Microbiology Routine Dysuria Expected: 02/14/2022, Expires: 04/16/[address] [facility] Work Phone: Comment on above: Expected: 02/14/2022 , Expires: 04/16/2022 Start: 07-18-2021 Influenza vaccination INFLUENZA (#1) [facility] Start: 06-17-2021 Medicare Annual Well ness Visit Medicare Annual Wellness Visit [facility] Start: 05-26-2021 COVID-19 VACCINE (3 - Booster for Moderna series) COVID-19 VACCINE (3 - Booster for Moderna series) [facility] Start: 02-21-2021 COVID-19 VACCINE (3 - Booster for Moderna series) COVID-19 VACCINE (3 - Booster for Moderna series) [facility] Start: 02-21-2021 COVID-19 VACCINE (3 - Moderna series) COVID-19 VACCINE (3 - Moderna series) [facility] Start: 01-24-2021 COVID-19 VACCINE (3 - Moderna risk series) COVID-19 VACCINE (3 - Moderna risk series) [facility] Start: 2009 Hepatitis B Vaccine (1 of 3 - 19+ 3-dose series) Hepatitis B Vaccine (1 of 3 - 19+ 3-dose series) [facility] Start: 2009 Pneumococcal vaccination Pneum ococcal Vaccine (1 of 2 - PCV) [facility] Start: 2009 SHINGRIX VACCINE (1 of 2) SHINGRIX VACCINE (1 of 2) [facility] Start: 2008 Annual PCP Team Donor Relations Officer efren Disease Visit Annual PCP Team Chronic Disease Visit [facility] Start: 2008 BP Controlled (<130/80) BP Controlle d (<130/80) [facility] Start: 2008 Hepatitis B surface antibody level LDL Cholesterol [facility] Start: 2008 HEPATITIS C SCREENING HEPATITIS C SC ELIER [facility] Start: 2008 HIV SCREENING HIV SCREENING [facility] Start: 2008 Spirometry Spirometry [facility] Start: 2002 Adult depression screening assessment DEPRESSION SCREENING [facility] Start: 09-01-2001 Urine microalbumin profile [facility] Start: 2000 Diabetic foot examination Diabetic Foot Exam [facility] Start: 2000 Glaucoma screening Dilated Retinal E xam [facility] Start: 2000 Hepatitis B screening Urine Al bumin:Creatinine Ratio [facility] Start: 1996 PNEUMOCOCCAL (1 - PCV) PNEUMOCOCCAL (1 - PCV) [facility] Start: 1996 Pneumococcal vaccination [facility] Start: 1990 HEPATITIS B (1 of 3 - 3-dose series) HEPATITIS B (1 of 3 - 3-dose series) [facility] Start: 1990 Hepatitis B Vaccine (1 of 3 - 3-dose series) Hepatitis B Vaccine (1 of 3 - 3-dose series) [facility] End: 07-10-2024 Nqqcj-7-Nnckippgzti [Mass/volume] in Serum or Plasma ALPHA FETOPROTEIN BL Lab Routine 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 tumo r marker [Units/volume] in Serum or Plasma [facility] Dpaui-5-hziicdganei. tumo r marker [Units/volume] in Serum or Plasma [facility] Bacteria identified in Wound by Culture ABSCESS AND WOUND CULTURE WITH GRAM STAIN Microbiology Routine Skin infection 08/01/2023 4:10 PM EDT 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 Work Phone: Comment on above: 1 Occurrences starti ng 09/30/2023 until 10/29/2024 End: 11-06-2025 CT Abdomen and Pelvis W contrast IV CT ABD/PEL W IVCON Radiology Routine Malignant neoplasm of testicle, unspecified laterality, unspecified whether descended or undescended (HCC) 1 Occurrences starting 11/01/2024 until 11/06/[address] 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) 1 Occurrences starting 03/02/2025 until 03/05/2026 [facility] Comment on above: 1 Occurrences starti ng 03/02/2025 until 03/05/2026 End: 05-28-2025 CT Abdomen and Pelvis WO contrast CT ABD/PEL WO IVCON Radiology Routine 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) Stage 3b chronic kidney disease (HCC) Seminoma of descended right testis (HCC) 1 Occurrences starting 04/28/2024 until 05/28/2025 [facility] Comment on above: 1 Occurrences starti ng 04/28/2024 until 05/28/2025 CT Abdomen and Pelvi s WO contrast CT ABD/PEL WO IVCON Radiology Routine 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) Stage 3b chronic kidney disease (HCC) Seminoma of descended right testis (HCC) 07/02/2024 9:54 AM EDT [facility] End: 08-05-2025 CT Abdomen and Pelvis WO contrast CT ABD/PEL WO IVCON Radiology Routine Malignant neoplasm of testicle, unspecified laterality, unspecified whether descended or undescended (HCC) 1 Occurrences starting 07/06/2024 until 08/05/2025 [facility] Comment on above: 1 Occurrences starti ng 07/06/2024 until 08/05/2025 End: 04-29-2025 CT Abdomen W contrast IV CT ABDOMEN W IVCON Radiology Routine 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, unspecified laterality (HCC) Malignant neoplasm of testicle, unspecified laterality, unspecified whether descended or undescended (HCC) 1 Occurrences starting 04/01/2024 until 04/29/2025 [facility] Comment on above: 1 Occurrences starti ng 04/01/2024 until 04/29/2025 End: 04-29-2025 CT Chest W contrast IV CT CHEST W IVCON Radiology Routine 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 Work Phone: End: 08-05-2025 CT Chest WO contrast CT CHEST WO IVCON Radiology Routine Malignant neoplasm of testicle, unspecified laterality, unspecified whether descended or undescended (HCC) 1 Occurrences starting 07/06/2024 until 08/05/[address] 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 Work Phone: Comment on above: 1 Occurrences starti ng 09/16/2023 until 10/15/2024 Glucose [Mass/volume ] in Serum or Plasma GLUCOSE, BLOOD (POC) Lab Routine Glucosuria Ordered: 06/04/[address] 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 Work Phone: End: 01-27-2024 SURGICAL PATHOLOGY [facility] Work Phone: Comment on above: ONCE for 1 Occurrenc es starting 01/27/2024 until 01/27/2024, 1 completed UA DIP, URINE (POC) UA DIP, URIN E (POC) Lab Routine Dysuria Ordered: 02/14/[address] [facility] Work Phone: Comment on above: Ordered: 02/14/2022 UA DIP, URINE (POC) UA DIP, URIN E (POC) Lab Routine Screening for genitourinary condition Ordered: 10/07/[address] [facility] Work Phone: Comment on above: Ordered: 10/07/2024 URINALYSIS, REFLEX MICROSCOPIC URINALYSIS, REFLEX MICROSCOPIC Lab Routine Screening for genitourinary condition Ordered: 03/09/[address] [facility] Work Phone: Comment on above: Ordered: 03/09/2024 [facility] Immunizations Immunization Date Immunization Notes Care Provider King cabrera 09-13-2022 influenza virus vaccine, unspecified formulation Lab/[facility] Work Phone: [facility] 12-27-2020 Covid (Moderna) Dr. Floyd sumner Work Phone: [facility] 11-30-2020 Covid (Moderna) Dr. Floyd sumner Work Phone: [facility] 07-18-2014 Influenza virus vaccine [facility] 2001 tetanus and diphther ia toxoids, not adsorbed, for adult use Ck [place] HUMAN RESOURCES RECEPTIONIST.ANESTHESIOLOGY PHYSICIAN Work Phone: [facility] 09-05-1992 diphtheria, tetanus toxoids and acellular pertussis vaccine Ck [place] HUM[employer] RESOURCES RECEPTIONIST.ANESTHESIOLOGY PHYSICIAN Work Phone: [facility] 09-05-1992 poliovirus vaccine, inactivated Ck [place] HUMAN RESOURCES RECEPTIONIST.ANESTHESIOLOGY PHYSICIAN Work Phone: [facility] 08-11-1992 diphtheria, tetanus toxoids and acellular pertussis vaccine Ck [place] HUMAN RESOURCES RECEPTIONIST.ANESTHESIOLOGY PHYSICIAN Work Phone: [facility] 08-11-1992 measles, mumps and rubella virus vaccine Ck [place] HUMAN RESOURCES RECEPTIONIST.ANESTHESIOLOGY PHYSICIAN Work Phone: [facility] 07-10-1992 diphtheria, tetanus toxoids and acellular pertussis vaccine Ck [place] HUMAN RESOURCES RECEPTIONIST.ANESTHESIOLOGY PHYSICIAN Work Phone: [facility] 07-10-1992 haemophilus influenz ae type b vaccine, HbOC conjugate Ck [place] HUMAN RESOURCES RECEPTIONIST.ANESTHESIOLOGY PHYSICIAN Work Phone: [facility] 07-10-1992 poliovirus vaccine, inactivated Ck [place] HUMAN RESOURCES RECEPTIONIST.ANESTHESIOLOGY PHYSICIAN Work Phone: [facility] 08-16-1991 haemophilus influenz ae type b vaccine, HbOC conjugate Ck [place] HUMAN RESOURCES RECEPTIONIST.ANESTHESIOLOGY PHYSICIAN Work Phone: [facility] 08-16-1991 poliovirus vaccine, inactivated Ck [place] HUMAN RESOURCES RECEPTIONIST.ANESTHESIOLOGY PHYSICIAN Work Phone: [facility] 06-14-1991 diphtheria, tetanus toxoids and acellular pertussis vaccine Ck [place] HUMAN RESOURCES RECEPTIONIST.ANESTHESIOLOGY PHYSICIAN Work Phone: [facility] 06-14-1991 poliovirus vaccine, inactivated [place]k [place] HUM[employer] RESOURCES RECEPTIONIST.ANESTHESIOLOGY PHYSICIAN Work Phone: [facility] Payers Date Payer Category Payer Self-pay [id number] 2021 Medicare MEDICARE MEDICAR E A AND B [id number] 2021-Present [phone] [address] [address] [place] [address] Medicare [id number] 2021 Medicare [id number] 2021 Medicare [id number] 2014 Medicaid [place] [id number] 2014-Present [phone] [address] [place] [address] Medicaid [id number] 2014 Medicaid [id number] 2014 Medicaid [id number] 1990 Unknown [id number] Unknown [id number] Unknown [id number] Unknown [id number] Unknown [id number] Unknown [id number] Unknown [id number] Unknown [id number] Unknown [id number] Unknown [id number] Unknown [id number] Unknown [id number] Social History Date Type Detail Facility Start: 08-13-2021 End: 05-06-2023 Tobacco smoking status NHIS Never smoked tobacco [facility] Start: 08-13-2021 End: 05-06-2023 Tobacco use and exposure Smokeless tobacco non-user [facility] Start: 02-14-2022 End: 07-12-2024 Alcohol intake Lifetime non-drinker (finding) [facility] Start: 02-14-2022 History SDOH Alcohol Frequency 1 [facility] Start: 1990 Sex Assigned At Not on file [facility] Start: 02-04-2022 End: 02-14-2022 Exposure to SARS-CoV-2 (event) Not sure [facility] Work Phone: Start: 01-02-2022 End: 02-16-2024 Tobacco smoking status DCIS Unknown if ever smoked [facility] Start: 03-14-2021 Non-smoker [facility] Start: 1990 Sex Assigned At Male [facility] Start: 11-11-2015 None [facility] Start: 05-06-2023 End: 07-12-2024 History of Social function [facility] Start: 05-06-2023 End: 07-12-2024 Tobacco use panel [facility] National Score (1-10 0), lower number is lower risk 70 [facility] Start: 08-13-2021 Alcoholic beverage intake Not Asked [facility] Start: 07-07-2021 End: 08-06-2021 Exposure to SARS-CoV-2 (event) Yes [facility] Start: 01-27-2025 Sex Male (finding) [facility] Medical Equipment Procedure Code Equipment Code Equipment Origin al Text Equipment Identifier Dates CHECK FASTING BL OOD SUGAR DAILY [id number] Start: 02-20-2023 Comment on above: CHECK FASTING BLOOD SUGAR DAILY [facility] ri 8fr [employer]astic Polyureth[employer] Implantable Infusion - [id number] Start: 07-10-2023 Goals Date Patient Goal Desired Activity /State Functional Status Date Assessment Result Facility 07-07-2014 Are you deaf, or do you have serious difficulty hearing No 07/07/2014 1:55 PM Tiffanie Burroughs RN No [facility] 07-07-2014 Are you blind, or do you have serious difficulty seeing, even when wearing glasses No 07/07/2014 1:55 PM Tiffanie Burroughs RN No [facility] 07-07-2014 Do you have serious difficulty walking or climbing stairs No 07/07/2014 1:55 PM Tiffanie Burroughs RN No [facility] 07-07-2014 Do you have difficul ty dressing or bathing No 07/07/2014 1:55 PM Tiffanie Burroughs RN No [facility] 07-07-2014 Because of a physica l, mental, or emotional condition, do you have difficulty doing errands alone such as visiting a physician's office or shopping Yes 07/07/2014 1:55 PM Tiffanie Burroughs RN Yes [facility] Mental Status Date Assessment Result Facility 11-11-2024 Cognitive function Level Of Cons ciousness Alert;Appropriate;Follows Commands;Drowsy [facility] Work Phone: 09-26-2023 Cognitive function Voice/Name [facility] Work Phone: 08-26-2023 Cognitive function Voice/Name [facility] Work Phone: 06-20-2023 Cognitive function Level Of Cons ciousness Awake;Alert;Appropriate [facility] Work Phone: 06-20-2023 Cognitive function Voice/Name [facility] Work Phone: 05-19-2023 Cognitive function Voice/Name [facility] Work Phone: 06-04-2022 Cognitive function Level Of Cons ciousness Awake;Alert;Appropriate;Fol lows Commands [facility] Work Phone: 01-02-2022 Cognitive function Level Of Cons ciousness Awake;Alert;Appropriate;Fol lows Commands [facility] Work Phone: 07-07-2014 Because of a physica l, mental, or emotional condition, do you have serious difficulty concentrating, remembering, or making decisions Yes 07/07/2014 1:55 PM EDT Tiffanie Hopkins RN Yes [facility] Clinical Notes 11-25-2002 to 04-29-2025 Telephone Encounter - Shanta Cervantes LPN - 04/29/2025 7:31 AM EDTTelephone Encounter - Shanta Cervantes LPN - 04/29/2025 7:31 AM EDTAntonio Brown MD - 02/03/2025 3:30 PM EDT Note Date & Type Note Facility 04-29-2025 Telephone encounter Note Prescription Refill Information The patient has been identified by name and date of : Yes Caregiver verified no other encounters exist for this prescription request: Yes Caregiver confirmed with patient/requestor that no other refills are due, in the near future, with this provider at this time: Yes The last office visit in the department: 07/08/2024 Does the patient have a future office visit with this provider/department: Pt. Was a no show for last scheduled appt. Nothing has been rescheduled. Last OV stated 6 month F/U OV and CT scan in 06/2025. Urologist had scans done 01/2025. How do you want to proceed forward? Requested Prescriptions Pending Prescriptions Disp Refills spironolactone (ALDACTONE) 25 mg tablet [Pharmacy Med Name: Spironolactone 25MG TABS] 30 tablet Sig: TAKE 1 TABLET BY MOUTH DAILY Shanta Cervantes LPN April 29, 2025 7:35 AM [facility] 04-29-2025 Miscellaneous Notes Prescription Refill Information The patient has been identified by name and date of : Yes Caregiver verified no other encounters exist for this prescription request: Yes Caregiver confirmed with patient/requestor that no other refills are due, in the near future, with this provider at this time: Yes The last office visit in the department: 07/08/2024 Does the patient have a future office visit with this provider/department: Pt. Was a no show for last scheduled appt. Nothing has been rescheduled. Last OV stated 6 month F/U OV and CT scan in 06/2025. Urologist had scans done 01/2025. How do you want to proceed forward? 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 He was diagnosed based on a retroperitoneal lymph node biopsy showing germ cell tumor consistent with seminoma. Due to his CKD and other comorbidities he was treated with 4 cycles of etoposide and carboplatin. Post-chemo scans showed significant residual disease, PET scan shows PET positive masses in retroperitoneal and also in one of the vertebral bones. 11/21/2023 pt is s/p radical orchiectomy. 01/27/2024 pt bone biopsy noted tophaceous gout and negative for neoplasm. Pt is s/p RPLND 03/17/2024. Path: necrosis, no viable tumor Interval history: Pt presents for their 3 mo f/u w/ CT A/P, CT Cest, CXR, and tumor markers. Reports no issues. New bilateral lower extremity pitting edema. On lasix per PCP. CT A/P (02/03/25) IMPRESSION: Stable to slightly decreased partly calcified retroperitoneal lymphadenopathy. Borderline sized morphologically normal bilateral groin nodes. Advise continued biochemical correlation and surveillance imaging Severely distended urinary bladder with bilateral pelvocaliectasis and ureterectasis more pronounced from prior likely secondary to reflux CT Chest (02/03/25) IMPRESSION: No CT evidence of acute abnormality. Unremarkable chest with no findings of metastatic disease in the thorax. Alpha Fetoprotein 11/05/24 - 2.41 09/09/24 - 2.38 07/02/24 - 1.79 Beta HCG Quant Tumor Marker 11/05/24 - <1 09/09/2024 - <1 07/02/2024 - <1 04/28/2024 - <1 LD Lactate Dehydro 04/28/24 - 161 04/19/24 - 168 02/23/24 - 204 Physical Exam: Patient is a 34 year old male Constitutional: Vitals: There were no vitals taken for this visit. General Appearance Adult: Alert, no acute distress, oriented Lungs/Repiratory: no respiratory distress, or pursed lip breathing Psych: affect and mood normal Abdomen: Estimated body mass index is 37.03 kg/m as calculated from the following: Height as of 07/12/24: 188 cm (6' 2). Weight as of 07/12/24: 130.8 kg (288 lb 6.4 oz). Labs and Pathology: RPLND 03/17/2024: FINAL DIAGNOSIS A. Lymph node mass, right precaval, excisional biopsy: - Necrotic tissue, consistent with treatment effect on tumor. - No viable neoplasm identified. B. Soft tissue, right spermatic cord, resection: - Benign fibrovascular and adipose tissue. C. Lymph node mass, right precaval, resection: - Necrotic mass with xanthomatous reaction and calcification, 4.6 cm gross greatest dimension, consistent with treatment effect on tumor. - No viable neoplasm identified. D. Lymph nodes, right precaval, regional resection: - Fibrosis or necrosis involving 4 lymph nodes, consistent with treatment effect on tumor. - No viable neoplasm identified. - 3 additional lymph nodes with no pathologic change (total 0/7). Alpha Fetoprotein (11/05/24) - 2.41 (09/09/24) - 2.38 (07/02/24) - 1.79 Beta HCG Quant Tumor Marker 11/05/24 - <1 09/09/2024 - <1 07/02/2024 - <1 04/28/2024 - <1 LD Lactate Dehydro 04/28/24 - 161 04/19/24 - 168 02/23/24 - 204 BMP Creatinine Date Value Ref Range Status 09/09/2024 2.67 (H) 0.73 - 1.22 mg/dL Final 07/02/2024 2.32 (H) 0.73 - 1.22 mg/dL Final 04/28/2024 2.63 (H) 0.73 - 1.22 mg/dL Final 04/19/2024 2.81 (H) 0.73 - 1.22 mg/dL Final eGFR (09/09/2024) - 31 (07/02/2024) - 37 (04/28/2024) - 32 (04/19/2024) - 29 Imaging: CT Chest (02/03/25) IMPRESSION: No CT evidence of acute abnormality. Unremarkable chest with no findings of metastatic disease in the thorax. 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 Pt wast treated with 4x cycles of etoposide and carboplatin and completed them 09/2023. S/p radical orchiectomy on 11/21/2023. S/p RPLND 03/17/2024. Pathology shows necrosis. No issues post-op. Tumor markers and imaging c/w KAY. Follow up with tumor markers in 3 months with the following. If labs and imaging are stable, then go out to 6 months. Labs AFP BHCG LDH Imaging CT abd/pelvis with IV contrast CXR vs. CT chest Caprice Nguyen, HUMAN RESOURCES RECEPTIONIST.ANESTHESIOLOGY PHYSICIAN The patient is seen and examined by Dr. Antonio Brown and the following reflects his/her service. Scribed by Rambo West I agree with the Chief Complaint, ROS, and Past Histories independently gathered by the clinical child support investigator including scribe and or medical student and or BRAYDON and or resident or fellow and the remaining scribed note accurately describes my personal service to the patient. Antonio Brown MD, MS [facility] [place] [facility] documented in this encounter [facility] 02-03-2025 Note [facility] 02-03-2025 History of Presen t illness Narrative Radiology Service Progress Note PATIENT NAME: Dann Palacios DATE OF SERVICE: February 03, 2025 TIME: 1:41 PM PATIENT IDENTITY VERIFICATION COMPLETED USING TWO (2) IDENTIFIERS: Name and Date of confirmed by patient verbally and Name and Date of confirmed by identification band. FALL SCREENING: Has the patient had 2 falls in the last year or 1 fall with injury or currently using an Ambulatory Assistive Device (Walker, Cane, Wheelchair, Crutches, etc.)? No PATIENT GENDER DATA: Assigned male at PATIENT RELEVANT IMPLANT DATA REVIEWED: Yes PATIENT PRESENTS WITH AN IMPLANTABLE OR ATTACHED MANAGER LANGUAGE: No RADIOLOGY DEPARTMENT: CT; Exam(s) Completed: Chest Abdomen Pelvis PERIPHERAL IV DATA: Not applicable SIGNED BY: RT Jaxson(R) February 03, 2025 1:41 PM documented in this encounter [facility] 02-03-2025 Note [facility] 10-07-2024 History of Presen t illness Narrative Chief Complaint: Follow up on STMs, BMP, CT Chest, CT/AP History of Present Illness: Dann Palacios is a very pleasant male who presents with a 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 He was diagnosed based on a retroperitoneal lymph node biopsy showing germ cell tumor consistent with seminoma. Due to his CKD and other comorbidities he was treated with 4 cycles of etoposide and carboplatin. Post-chemo scans showed significant residual disease, PET scan shows PET positive masses in retroperitoneal and also in one of the vertebral bones. 11/21/2023 pt is s/p radical orchiectomy. 01/27/2024 pt bone biopsy noted tophaceous gout and negative for neoplasm. Pt is s/p RPLND 03/17/2024. Path: necrosis, no viable tumor Interval history: Pt presents to follow up on STMs, BMP, CT Chest, CT/AP 09/09/24: AFP 2.38, HCG <[address] C/A/P Reports no issues. New bilateral lower extremity pitting edema. On lasix per PCP. Physical Exam: Patient is a 34 year old male Constitutional: Vitals: There were no vitals taken for this visit. General Appearance Adult: Alert, no acute distress, oriented Lungs/Repiratory: no respiratory distress, or pursed lip breathing Psych: affect and mood normal Abdomen: Estimated body mass index is 37.03 kg/m as calculated from the following: Height as of 07/12/24: 188 cm (6' 2). Weight as of 07/12/24: 130.8 kg (288 lb 6.4 oz). Labs and Pathology: RPLND 03/17/2024: FINAL DIAGNOSIS A. Lymph node mass, right precaval, excisional biopsy: - Necrotic tissue, consistent with treatment effect on tumor. - No viable neoplasm identified. B. Soft tissue, right spermatic cord, resection: - Benign fibrovascular and adipose tissue. C. Lymph node mass, right precaval, resection: - Necrotic mass with xanthomatous reaction and calcification, 4.6 cm gross greatest dimension, consistent with treatment effect on tumor. - No viable neoplasm identified. D. Lymph nodes, right precaval, regional resection: - Fibrosis or necrosis involving 4 lymph nodes, consistent with treatment effect on tumor. - No viable neoplasm identified. - 3 additional lymph nodes with no pathologic change (total 0/7). Beta HCG Quant Tumor Marker (09/09/2024) - <1 (07/02/2024) - <1 (04/28/2024) - <1 BMP Creatinine Date Value Ref Range Status 09/09/2024 2.67 (H) 0.73 - 1.22 mg/dL Final 07/02/2024 2.32 (H) 0.73 - 1.22 mg/dL Final 04/28/2024 2.63 (H) 0.73 - 1.22 mg/dL Final 04/19/2024 2.81 (H) 0.73 - 1.22 mg/dL Final eGFR (09/09/2024) - 31 (07/02/2024) - 37 (04/28/2024) - 32 (04/19/2024) - 29 Imaging: CT A/P wo IV con 07/02/24 CT chest wo IV con 07/02/24 IMPRESSION: No acute pulmonary process is identified. No convincing CT evidence for metastatic disease within the chest. Sequela of remote granulomatous disease. Interval improvement of partially calcified retroperitoneal lymphadenopathy, when compared the prior CT examination from 10/13/2023. Stable prominent pelvic lymph nodes. CXR: 03/17/2024 IMPRESSION: Left central line and endotracheal tube in place as described. PET CT 12/15/2023 IMPRESSION: HEAD/NECK: * No FDG avid neoplastic process. CHEST: * No FDG avid neoplastic process. ABDOMEN/PELVIS: * FDG avid bulky retroperitoneal lymphadenopathy as detailed suspicious for metastatic disease. MUSCULOSKELETAL: * FDG avid lytic lesion involving the spinous processes of the L3 vertebral body, suspicious for metastasis. CT abd/pel 10/13/2023 IMPRESSION: Stable interval exam. Stable bulky retroperitoneal complex adenopathy with partial calcification. I personally viewed all applicable imaging and interpreted them and went over the results with the patient. CT Chest WO CON 09/17/2023 IMPRESSION: Improved bulky retroperitoneal adenopathy in keeping with treatment response. Slightly worsened bilateral hydroureteronephrosis. Significant mass effect upon the inferior vena cava remains. 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 Pt wast treated with 4x cycles of etoposide and carboplatin and completed them 09/2023. S/p radical orchiectomy on 11/21/2023. S/p RPLND 03/17/2024. Pathology shows necrosis. No issues post-op. Tumor markers and imaging c/w KAY. Schedule PSA and scans (CT ABD/PEL, CT Chest, and XR Chest) in 3 months. If scans and blood work look fine, then follow up in 3 months. The patient is seen and examined by Dr. Antonio Brown and the following reflects his/her service. Scribed by Rambo West I agree with the Chief Complaint, ROS, and Past Histories independently gathered by the clinical child support investigator including scribe and or medical student and or BRAYDON and or resident or fellow and the remaining scribed note accurately describes my personal service to the patient. Antonio Brown MD, MS [facility] [place] [facility] documented in this encounter [facility] 10-07-2024 Note [facility] 07-26-2024 Telephone encounter Note Prescription Refill Information The patient has been identified by name and date of : Yes Caregiver verified no other encounters exist for this prescription request: Yes Caregiver confirmed with patient/requestor that no other refills are due, in the near future, with this provider at this time: Yes The last office visit in the department: 07/08/2024 Does the patient have a future office visit with this provider/department: Yes Requested Prescriptions Pending Prescriptions Disp Refills spironolactone (ALDACTONE) 25 mg tablet [Pharmacy Med Name: Spironolactone 25MG TABS] 30 tablet 2 Sig: take 1 tablet by mouth daily Shanta Cervantes LPN July 26, 2024 7:33 AM [facility] 07-26-2024 Miscellaneous Notes Prescription Refill Information The patient has been identified by name and date of : Yes Caregiver verified no other encounters exist for this prescription request: Yes Caregiver confirmed with patient/requestor that no other refills are due, in the near future, with this provider at this time: Yes The last office visit in the department: 07/08/2024 Does the patient have a future office visit with this provider/department: Yes Requested Prescriptions Pending Prescriptions Disp Refills spironolactone (ALDACTONE) 25 mg tablet [Pharmacy Med Name: Spironolactone 25MG TABS] 30 tablet 2 Sig: take 1 tablet by mouth daily Shanta Cervantes LPN July 26, 2024 7:33 AM documented in this encounter [facility] 07-12-2024 Note [facility] 07-12-2024 Procedure note UNIVERSAL PROTOCOL / SAFETY CHECKLIST Procedure to be Performed: Removal of portacath Sign In: A Moment of CARE was completed. Personnel directly involved with the procedure wore the appropriate PPE (Personal Protective Equipment). No special equipment needed. Patient/Surrogate Stated/Verified: PATIENT VERIFIED(optional for EMERGENT procedures): Patient name, Date of , Relevant allergies, and The intended procedure Time Out Communication: Intended patient and procedure match the source documents. Consent documented and matches the intended procedure. No relevant labs, photos, and/or imaging studies were applicable for review. Correct side/site marked and visible. Medications required for procedure verified. No fire risk assessment and interventions applicable. No implant(s) inserted. Sign Out: SIGN OUT (optional for EMERGENT procedures): No specimen collected. All instruments, equipment, possible retained foreign bodies accounted for. Post-procedure follow-up management communicated and Plan of Care Visit completed when applicable. Aditi Hickman RN [facility] 07-12-2024 Procedure note UNIVERSAL PROTOCOL / SAFETY CHECKLIST Procedure to be Performed: Removal of portacath Sign In: A Moment of CARE was completed. Personnel directly involved with the procedure wore the appropriate PPE (Personal Protective Equipment). No special equipment needed. Patient/Surrogate Stated/Verified: PATIENT VERIFIED(optional for EMERGENT procedures): Patient name, Date of , Relevant allergies, and The intended procedure Time Out Communication: Intended patient and procedure match the source documents. Consent documented and matches the intended procedure. No relevant labs, photos, and/or imaging studies were applicable for review. Correct side/site marked and visible. Medications required for procedure verified. No fire risk assessment and interventions applicable. No implant(s) inserted. Sign Out: SIGN OUT (optional for EMERGENT procedures): No specimen collected. All instruments, equipment, possible retained foreign bodies accounted for. Post-procedure follow-up management communicated and Plan of Care Visit completed when applicable. Aditi Hickman RN documented in this encounter [facility] 07-12-2024 Instructions Aditi Hickman RN - 07/12/2024 3:16 PM EDT The following instructions are important for you related to your office visit today with the [facility]. Instructions After Port a Cath Removal You can remove the dressing on Jeison. If the dressing becomes soaked or had significant drainage, the dressing should be changed. If there is minor bleeding from this skin edge, you should hold pressure on the incision until the bleeding stops. If there is continued bleeding, you should contact our office immediately. You do not need to leave a dressing on the wound after Friday. If the wound shows signs of redness, inflammation, or purulent drainage, you should contact our office immediately. You should keep the wound dry, you may wash the wound with gentle soap and water. The wound should not be immersed in a pool, bathtub, or even hot tub. The Sutures will dissolve. The steri strips will fall off on their own. You can take Tylenol & Ibuprofen for any pain. If you note any additional difficulties, questions, or concerns, you should contact our office immediately @ [phone] and ask to be transferred to the General Surgery department. documented in this encounter [facility] 07-12-2024 Note [facility] 07-12-2024 History of Presen t illness Narrative Paul is here for port removal. Ok'd by his oncologist. PROCEDURE NOTE: After informed consent was given the patient was placed in the supine position. Appropriate time out protocol was followed. At the site of the port - rig upper chest area, the skin was cleansed with sterile skin preparation and sterile surgical drapes were placed. The skin and subcutaneous tissues were infiltrated with 1% xylocaine with epinephrine. Total of 8 ml was used. A skin incision was made at the previous scar site with a 15 blade scalpel. Blunt dissection was then continued down to the port site. Blunt dissection was continued to separate the port and catheter for the surrounding tissues. Once completely freed, the port and catheter was then completely removed from the wound. Pressure was applied to the vein site for hemostasis. The skin was then reapproximated with a subdermally placed 3-0 vicryl suture. Steristrips were placed to reinforce the wound closure. A sterile dressing was then applied. Patient tolerated the procedure well. Complications: none EBL: minimal PLAN: Wound care instructions given by clinic staff. Patient is instructed to make an appointment to return to clinic if any worsening signs/symptoms. Patient will return to PCP for medical care. Patient acknowledges above. documented in this encounter [facility] 07-08-2024 Note [facility] 07-08-2024 History of Presen t illness Narrative Oncologic problem(s): 1) Stage IIIB seminoma. HPI: The patient is a 33 yo male with a PMH significant for HTN, CKD stage 3 (posterior urethral valves), obesity, diabetes and autism. Underwent evaluation for lower back pain. May 14, 2023 CT abdomen and pelvis: FINDINGS: The visualized lung bases are unremarkable. The visualized portions of the heart are within normal limits. Normal liver. Normal gallbladder and extrahepatic biliary system. Normal spleen. Normal pancreas. Normal bilateral adrenal glands. Irregular appearance of both kidneys. Findings are suggestive of multiple bilateral renal cysts. Correlation with ultrasound is ecommended. There is a 3.7 mm nonobstructive calculus in the lower pole of the left kidney. There is a small hiatal hernia. Normal small intestine. Normal colon. The appendix is visualized and appears normal. Normal abdominal aorta. Normal inferior vena cava. There is retroperitoneal lymphadenopathy with enlarged nodes greater than 10-15mm in the short axis. Normal urinary bladder. Normal abdominal wall. Minimal anterior listhesis of L5 on S1 secondary to spondylolysis of the pars interarticularis of the L5 vertebrae. IMPRESSION: Diffuse enlargement of retroperitoneal lymphadenopathy. Lymphoma should be ruled out. Nonobstructive S in the lower pole calyx of the left kidney. Heterogeneous appearance of both kidneys suggestive of multiple bilateral renal cysts. 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 See comment. COMMENT The specimen is evaluated at the time of biopsy by Dr. Muñiz. Immediate Evaluation = Atypical lymphocytes present. The specimen is sent to [facility] for expert opinion and reviewed by Dr. Cat and above diagnosis is rendered. The complete report is viewable in patient s EMR. Flow cytometry studies from [facility] show no evidence of B-cell or T-cell lymphoma. The complete report is viewable in patients EM May 26, 2023 testicular ultrasound: FINDINGS: RIGHT TESTICLE: Right testicle is heterogeneous with what appear to be multiple masses replacing the normal parenchyma. Normal arterial flow present in the testicle with monophasic waveforms. The right testicle measures 5.9 x 4.3 x 3.4 cm. LEFT TESTICLE: Unremarkable. Normal in size and echotexture. No focal lesion. Normal arterial flow present in the testicle with monophasic waveforms. EPIDIDYMIDES: Small left epididymal cyst. Normal color Doppler flow pattern in the epididymis. SCROTUM: Small right hydrocele. No varicocele. Impression: 1. Heterogeneous right testicle with multiple masses. 2. Normal left testicle. 3. Small left epididymal cyst. June 03, 2023 CT chest: FINDINGS: LUNGS, PLEURA AND LARGE AIRWAYS: There is mild atelectasis in the lingula. Lungs appear otherwise clear. No pleural effusions are noted. No pleural effusion or thickening. No pneumothorax. THYROID: No thyroid lesions. HEART AND PERICARDIUM: Heart size is normal. There is a small pericardial effusion. CORONARY ARTERIES: Coronary artery calcification VESSELS: Thoracic aorta is not dilated. MEDIASTINUM AND SHYAM: No mediastinal or hilar adenopathy. Esophagus is unremarkable. No hiatal hernia. UPPER ABDOMEN: The kidneys appear lobular nature bilaterally possible underlying cysts difficult to evaluate without IV contrast. Extensive retroperitoneal lymphadenopathy is noted also seen on previous abdominal CT which may be related to history of testicular cancer. BONES: No suspicious lytic or blastic abnormality. Was to undergo orchidectomy at [facility], but aborted due to high BP. Here today with his adoptive mother and weight loss centre manager from the [employer]. He has no particular complaints. Denies testicular pain but having abdominal pain. When given prescription of Vicodin at the ER, it helped. He is out. He lives alone/independently but has 16 hr/day supervision. Answers questions appropriately. Enjoys art and in particular drawing cars. Previous therapy: 1) Carbo/etoposide x4 cylces. Right orchiectomy 11/21. Right orchiectomy path 11/21/2023: A. Right testicle, excision: - Scar consistent with regressed germ cell tumor. - Fibrosis of seminiferous tubules. Underwent biopsy of vertebral lesion. Pathology consistent with tophaceous gout. This was reviewed with several radiologist who concurred has appearance of tophaceous gout. Underwent retroperitoneal lymphadenectomy 03/17/2024. Pathology: A. Lymph node mass, right precaval, excisional biopsy: - Necrotic tissue, consistent with treatment effect on tumor. - No viable neoplasm identified. B. Soft tissue, right spermatic cord, resection: - Benign fibrovascular and adipose tissue. C. Lymph node mass, right precaval, resection: - Necrotic mass with xanthomatous reaction and calcification, 4.6 cm gross greatest dimension, consistent with treatment effect on tumor. - No viable neoplasm identified. D. Lymph nodes, right precaval, regional resection: - Fibrosis or necrosis involving 4 lymph nodes, consistent with treatment effect on tumor. - No viable neoplasm identified. - 3 additional lymph nodes with no pathologic change (total 0/7). Presents for ongoing oncologic management. Interim history: Denies abdominal pain. Appetite normal. Bowels have been moving on a regular basis. No trouble urinating. Swelling much better. Mild in left LE. PAST MEDICAL HISTORY 11/14/2023: Depression with anxiety No date: Diabetes mellitus (HCC) No date: Essential hypertension 11/14/2023: Mild intermittent asthma without complication 11/14/2023: RONALD (obstructive sleep apnea) No date: Other specified pervasive developmental disorders, current or active state Comment: PDD No date: Renal failure, unspecified 11/14/2023: Stage 3b chronic kidney disease (HCC) 11/14/2023: Type 2 diabetes mellitus without complication, without long-term current use of insulin (HCC) No date: Unspecified intellectual disabilities Comment: borderline IQ 79 ALLERGIES Allergen Reactions Keflex [Cephalexin] Rash Social History Tobacco Use Smoking status: Never Smokeless tobacco: Never Vaping Use Vaping status: Never Used Substance Use Topics Alcohol use: Never Drug use: Never Family History Adopted: Yes Problem Relation Age of Onset No Known Problems Mother PHYSICAL EXAM: Vitals: Blood pressure 137/89, pulse 71, temperature 36.1 C (96.9 F), resp. rate 14, weight 127.9 kg (282 lb), SpO2 100%. Well-appearing and in no acute distress. EYES: Sclerae are anicteric bilaterally LYMPHATIC: There is no palpable cervical or supraclavicular adenopathy. RESPIRATORY: Inspiratory breath sounds are of normal intensity in all rios. CARDIOVASCULAR: Rhythm is regular. ABDOMEN: The abdomen is nondistended. Midline scar--well healed.. Extremities: Mild swelling left LE. SKIN: No rash. 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 -Complicated by stage 3b CKD. -Status post right orchiectomy. -PET demonstrated significant residual disease in the retroperitoneum. -Now s/p RP lymphadenectomy. KAY. -Per Dr. Palacios. -He is now in remission. He is a good likelihood that he has been cured. Will follow-up with Dr. Wilkerson and Dr. Brown. Does not need to see me any longer. He has follow-up scheduled for April and June and repeat scans in June. Serum beta-hCG and AFP should be monitored every 2 months for the next year. If his scans look good in June, they should be repeated in June 2025. 2. 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 He has most likely been cured. Should have repeat imaging in June or July 2024 and this is already been scheduled. Serum tumor markers to be checked every 2 months. -BHCG undetectable. Plan: -Every 2 month beta HCG and AFP. -OV in about 6 months. -CTs 06/2025. -Okay to remove port. Portions of this documentation were copied and pasted from previous office visit notes in order to provide a cohesive continuity of the history. The note has been reviewed and edited and updated as necessary. I spent a total of 20 minutes on the date of the service which included preparing to see the patient, [id number] patient care, completing clinical documentation, obtaining and/or reviewing separately obtained history, performing a medically appropriate examination, counseling and educating the patient/family/caregiver, ordering medications, tests, or procedures, communicating with other HCPs (not separately reported), and communicating results to the patient/family/caregiver. Hardik Wilkerson DO documented in this encounter [facility] 07-06-2024 Note [facility] 07-06-2024 History of Presen t illness Narrative PATIENT: Dann Palacios [id number] 07/06/24 This clinic note was copied and updated from previous note from 03/30/24 Chief Complaint: Testicular cancer History of Present Illness: Dann Palacios is a very pleasant 33 year old male who presents with a 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 He was diagnosed base on a retroperitoneal lymph node biopsy showing germ cell tumor consistent with seminoma. Due to his CKD and other comorbidities he was treated with 4 cycles of etoposide and carboplatin. Post-chemo scans showed significant residual disease. Patient in much better shape than he was last time, and is able to walk and stand normally. S/p right radical orchiectomy 11/21/2023. Had bone biopsy 01/27/2024 that noted tophaceous gout and negative for neoplasm. S/p RPLND on 03/17/2024. Date of Initial Diagnosis/Orchiectomy: 11/21/2023 Side of Initial Diagnosis: right The histologic components of the orchiectomy were Seminoma % = 100. The pre-orchiectomy tumor markers were AFP = <3 bHCG = <1 LDH = 414 The post-orchiectomy tumor markers on 03/09/24 were AFP = <3 bHCG = <1 LDH = 204 Chemotherapy: Yes Chemotherapy type: etoposide and carboplatin. Number of Cycles completed: 4. RPLND: Yes on 03/17/2024 Number of nodes removed:8. Number of nodes showing residual germ cell cancer 0 (all necrosis) Interval history: Been back to work -- doing well with this. Stopped low residue diet but still eating healthy meals via delivery service -- losing weight on purpose at this time (estimates he's lost 20-25 lbs). Normal BMs, no voiding symptoms. Denies CP/SOB/F/C/N/V. Ambulating a lot at [employer] and around home. Cancer Follow-Up: - Recent CT scan showed no evidence of disease progression; residual tissue in the retroperitoneum was non-viable. - Patient inquires if cancer is completely gone. - Incision site healing well, with some keloiding noted. - Patient rubbed incision site while swimming, causing minor bleeding; applied pressure to stop bleeding. - Patient uses sunscreen when shirtless, but not on head, resulting in sunburn. - Patient receiving meals through [employer] program, with portion sizes controlled. - Patient returning to work two days a week. - Scheduled to see Dr. Salas next week for port removal, pending confirmation of CT scan results. - Patient has been watching the [employer] on TV and is a fan of the team. Physical Exam Patient is a 33 year old male Constitutional: Vitals: There were no vitals taken for this visit. General Appearance Adult: Alert, no acute distress, oriented Mouth: throat/mouth:normal as far as I can tell behind the mask Lungs/Repiratory: no respiratory distress, or pursed lip breathing Heart: No obvious jugular venous distension present, normal heart rate Abdomen: soft, nontender, no organomegaly or masses Labs and Pathology: 07/02/24 B-HCG <1 AFP <3.0 Cr 2.32 (2.63<2.81<2.69) AFP 09/16/2023 Component Ref Range & Units 1 mo ago (09/16/23) 1 mo ago (08/25/23) 2 mo ago (08/01/23) 3 mo ago (07/14/23) 3 mo ago (07/03/23) AFP <11.0 ng/mL <3.0 3.3 CM 4.9 CM <3.0 CM <3.0 LD Lactate Dehydro 09/16/2023 Component Ref Range & Units 1 mo ago (09/16/23) 1 mo ago (08/25/23) 2 mo ago (08/01/23) 3 mo ago (07/14/23) 3 mo ago (07/03/23) LD 135 - 225 U/L 414 High 470 High 355 High 552 High 864 High BETA HCG Quant 09/16/2023 Component Ref Range & Units 1 mo ago (09/16/23) 1 mo ago (08/25/23) 2 mo ago (08/01/23) 3 mo ago (07/14/23) 3 mo ago (07/03/23) Beta hCG Quant Tumor Marker 0 - 3 IU/L <1 <1 CM 1 CM 187 High CM 103 High I personally reviewed all applicable laboratory and pathology data reviewed with patient Significant for testicular cancer 11/21/2023 SURGICAL PATHOLOGY A. Right testicle, excision: - Scar consistent with regressed germ cell tumor. - Fibrosis of seminiferous tubules. MISSAEL/jocy 11/26/2023 Surgical Pathology 01/27/2024 FINAL DIAGNOSIS Bone, L3 spinous process, biopsy: - Tophaceous gout, see comment. - Negative for neoplasm. RPLND 03/17/24 FINAL DIAGNOSIS A. Lymph node mass, right precaval, excisional biopsy: - Necrotic tissue, consistent with treatment effect on tumor. - No viable neoplasm identified. B. Soft tissue, right spermatic cord, resection: - Benign fibrovascular and adipose tissue. C. Lymph node mass, right precaval, resection: - Necrotic mass with xanthomatous reaction and calcification, 4.6 cm gross greatest dimension, consistent with treatment effect on tumor. - No viable neoplasm identified. D. Lymph nodes, right precaval, regional resection: - Fibrosis or necrosis involving 4 lymph nodes, consistent with treatment effect on tumor. - No viable neoplasm identified. - 3 additional lymph nodes with no pathologic change (total 0/7). Creatinine Date Value Ref Range Status 07/02/2024 2.32 (H) 0.73 - 1.22 mg/dL Final 04/28/2024 2.63 (H) 0.73 - 1.22 mg/dL Final 04/19/2024 2.81 (H) 0.73 - 1.22 mg/dL Final 04/15/2024 2.69 (H) 0.73 - 1.22 mg/dL Final Imaging: CT A/P wo IV con 07/02/24 CT chest wo IV con 07/02/24 IMPRESSION: No acute pulmonary process is identified. No convincing CT evidence for metastatic disease within the chest. Sequela of remote granulomatous disease. Interval improvement of partially calcified retroperitoneal lymphadenopathy, when compared the prior CT examination from 10/13/2023. Stable prominent pelvic lymph nodes. CXR: 03/17/2024 IMPRESSION: Left central line and endotracheal tube in place as described. PET CT 12/15/2023 IMPRESSION: HEAD/NECK: * No FDG avid neoplastic process. CHEST: * No FDG avid neoplastic process. ABDOMEN/PELVIS: * FDG avid bulky retroperitoneal lymphadenopathy as detailed suspicious for metastatic disease. MUSCULOSKELETAL: * FDG avid lytic lesion involving the spinous processes of the L3 vertebral body, suspicious for metastasis. CT abd/pel 10/13/2023 IMPRESSION: Stable interval exam. Stable bulky retroperitoneal complex adenopathy with partial calcification. I personally viewed all applicable imaging and interpreted them and went over the results with the patient. CT Chest WO CON 09/17/2023 IMPRESSION: Improved bulky retroperitoneal adenopathy in keeping with treatment response. Slightly worsened bilateral hydroureteronephrosis. Significant mass effect upon the inferior vena cava remains. 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 His post chemo Orchiectomy showed no residual viable cancer. However PET scan shows PET positive masses in retroperitoneal and also in one of the vertebral bones. Bone biopsy of one of the PET positive lesions was negative for cancer. Now s/p RPLND on 03/17/2024. Pathology shows necrosis. No issues post-op. Tumor markers and imaging c/w KAY. Follow-up in 3 months with [address]Ms BMP CT chest CT A/P -Continue to apply sunscreen when exposed to the sun to prevent darkening of the healing skin on your incision. - Consider using vitamin E oil on the incision to help with the healing process. - Your cancer scans show no evidence of disease, meaning all the tools we have do not give us any evidence that cancer remains - You will have a follow-up appointment in three months to get the same set of labs and scans. Please schedule this at the desk next to the elevator or wait for a call to set it up. - You will see Dr. Rick this coming week to discuss the removal of your port. Alvina Alfaro MD I agree with the Chief Complaint, ROS, and Past Histories independently gathered by the clinical child support investigator including scribe and or medical student and or BRAYDON and or resident or fellow and the remaining scribed note accurately describes my personal service to the patient. Antonio Brown MD, MS [facility] [place] [facility] documented in this encounter [facility] 07-02-2024 History of Presen t illness Narrative Radiology Service Progress Note PATIENT NAME: Dann Palacios DATE OF SERVICE: July 02, 2024 TIME: 2:36 PM PATIENT IDENTITY VERIFICATION COMPLETED USING TWO (2) IDENTIFIERS: Name and Date of confirmed by patient verbally. FALL SCREENING: Has the patient had 2 falls in the last year or 1 fall with injury or currently using an Ambulatory Assistive Device (Walker, Cane, Wheelchair, Crutches, etc.)? No PATIENT GENDER DATA: Male PATIENT RELEVANT IMPLANT DATA REVIEWED: Yes PATIENT PRESENTS WITH AN IMPLANTABLE OR ATTACHED MANAGER LANGUAGE: No RADIOLOGY DEPARTMENT: CT; Exam(s) Completed: Chest Abdomen Pelvis PERIPHERAL IV DATA: Not applicable SIGNED BY: RT Serafin(R) July 02, 2024 2:36 PM documented in this encounter [facility] 07-02-2024 Note [facility] 07-02-2024 Note [facility] 07-02-2024 History of Presen t illness Narrative Patient is here for IVAD port flush/blood draw per [facility] [place] protocol. IVAD is located in right upper chest. Site cleansed with Chloraprep IVAD accessed with a #20 gauge 3/4 non-coring Gripper needle Flush with 5cc's Normal Saline. Blood Return: None. No blood return; patient due for scan now, unable to wait on activase - sent to lab for blood draw. CT is without IV contrast. Flushed with: 20 ml Normal Saline. Non-coring needle removed. Paper tape applied to puncture site. Site negative for redness, edema or tenderness. Patient tolerated procedure well. documented in this encounter [facility] 05-14-2024 Telephone encounter Note Potassium was discontinued 04/22/2024. Chantell Nguyen LPN [facility] 05-14-2024 Miscellaneous Notes Potassium was discontinued 04/22/2024. Chantell Nguyen LPN documented in this encounter [facility] 04-30-2024 Telephone encounter Note Prescription Refill Information The patient has been identified by name and date of : Yes Caregiver verified no other encounters exist for this prescription request: Yes Caregiver confirmed with patient/requestor that no other refills are due, in the near future, with this provider at this time: Yes The last office visit in the department: 04/28/2024 Does the patient have a future office visit with this provider/department: Yes Requested Prescriptions Pending Prescriptions Disp Refills spironolactone (ALDACTONE) 25 mg tablet [Pharmacy Med Name: Spironolactone 25MG TABS] 30 tablet 2 Sig: take 1 tablet by mouth daily Refused Prescriptions Disp Refills furosemide (LASIX) 20 mg tablet [Pharmacy Med Name: Furosemide 20MG TABS] 30 tablet 1 Sig: take 1 tablet by mouth daily Shanta Cervantes LPN April 30, 2024 1:08 PM [facility] 04-30-2024 Miscellaneous Notes Prescription Refill Information The patient has been identified by name and date of : Yes Caregiver verified no other encounters exist for this prescription request: Yes Caregiver confirmed with patient/requestor that no other refills are due, in the near future, with this provider at this time: Yes The last office visit in the department: 04/28/2024 Does the patient have a future office visit with this provider/department: Yes Requested Prescriptions Pending Prescriptions Disp Refills spironolactone (ALDACTONE) 25 mg tablet [Pharmacy Med Name: Spironolactone 25MG TABS] 30 tablet 2 Sig: take 1 tablet by mouth daily Refused Prescriptions Disp Refills furosemide (LASIX) 20 mg tablet [Pharmacy Med Name: Furosemide 20MG TABS] 30 tablet 1 Sig: take 1 tablet by mouth daily Shanta Cervantes LPN April 30, 2024 1:08 PM documented in this encounter [facility] 04-28-2024 Telephone encounter Note Caregiver notified to continue spironolactone as ordered and not to restart potassium. Alysia Medellin LPN [facility] 04-28-2024 Miscellaneous Notes Caregiver notified to continue spironolactone as ordered and not to restart potassium. Alysia Medellin LPN Appts updated to recheck BMP when here for labs next. Monica Akhtar Thank you. Okay to continue that. Recheck BMP when he is here for next blood work. Don't restart potassium. Hardik Wilkerson DO Received call from caregiver stating Dr. Wilkerson was requesting following information. Patient is taking spirolactone 25 mg daily. documented in this encounter [facility] 04-28-2024 Telephone encounter Note Appts updated to recheck BMP when here for labs next. Monica Akhtar [facility] 04-28-2024 Telephone encounter Note Thank you. Okay to continue that. Recheck BMP when he is here for next blood work. Don't restart potassium. Hardik Wilkerson DO [facility] 04-28-2024 Telephone encounter Note Received call from caregiver stating Dr. Wilkerson was requesting following information. Patient is taking spirolactone 25 mg daily. [facility] Work Phone: 04-28-2024 Note [facility] 04-28-2024 History of Presen t illness Narrative Oncologic problem(s): 1) Stage IIIB seminoma. HPI: The patient is a 33 yo male with a PMH significant for HTN, CKD stage 3 (posterior urethral valves), obesity, diabetes and autism. Underwent evaluation for lower back pain. May 14, 2023 CT abdomen and pelvis: FINDINGS: The visualized lung bases are unremarkable. The visualized portions of the heart are within normal limits. Normal liver. Normal gallbladder and extrahepatic biliary system. Normal spleen. Normal pancreas. Normal bilateral adrenal glands. Irregular appearance of both kidneys. Findings are suggestive of multiple bilateral renal cysts. Correlation with ultrasound is recommended. There is a 3.7 mm nonobstructive calculus in the lower pole of the left kidney. There is a small hiatal hernia. Normal small intestine. Normal colon. The appendix is visualized and appears normal. Normal abdominal aorta. Normal inferior vena cava. There is retroperitoneal lymphadenopathy with enlarged nodes greater than 10-15mm in the short axis. Normal urinary bladder. Normal abdominal wall. Minimal anterior listhesis of L5 on S1 secondary to spondylolysis of the pars interarticularis of the L5 vertebrae. IMPRESSION: Diffuse enlargement of retroperitoneal lymphadenopathy. Lymphoma should be ruled out. Nonobstructive S in the lower pole calyx of the left kidney. Heterogeneous appearance of both kidneys suggestive of multiple bilateral renal cysts. 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 See comment. COMMENT The specimen is evaluated at the time of biopsy by Dr. Muñiz. Immediate Evaluation = Atypical lymphocytes present. The specimen is sent to [facility] for expert opinion and reviewed by Dr. Cat and above diagnosis is rendered. The complete report is viewable in patient s EMR. Flow cytometry studies from [facility] show no evidence of B-cell or T-cell lymphoma. The complete report is viewable in patients EM May 26, 2023 testicular ultrasound: FINDINGS: RIGHT TESTICLE: Right testicle is heterogeneous with what appear to be multiple masses replacing the normal parenchyma. Normal arterial flow present in the testicle with monophasic waveforms. The right testicle measures 5.9 x 4.3 x 3.4 cm. LEFT TESTICLE: Unremarkable. Normal in size and echotexture. No focal lesion. Normal arterial flow present in the testicle with monophasic waveforms. EPIDIDYMIDES: Small left epididymal cyst. Normal color Doppler flow pattern in the epididymis. SCROTUM: Small right hydrocele. No varicocele. Impression: 1. Heterogeneous right testicle with multiple masses. 2. Normal left testicle. 3. Small left epididymal cyst. June 03, 2023 CT chest: FINDINGS: LUNGS, PLEURA AND LARGE AIRWAYS: There is mild atelectasis in the lingula. Lungs appear otherwise clear. No pleural effusions are noted. No pleural effusion or thickening. No pneumothorax. THYROID: No thyroid lesions. HEART AND PERICARDIUM: Heart size is normal. There is a small pericardial effusion. CORONARY ARTERIES: Coronary artery calcification VESSELS: Thoracic aorta is not dilated. MEDIASTINUM AND SHYAM: No mediastinal or hilar adenopathy. Esophagus is unremarkable. No hiatal hernia. UPPER ABDOMEN: The kidneys appear lobular nature bilaterally possible underlying cysts difficult to evaluate without IV contrast. Extensive retroperitoneal lymphadenopathy is noted also seen on previous abdominal CT which may be related to history of testicular cancer. BONES: No suspicious lytic or blastic abnormality. Was to undergo orchidectomy at [facility], but aborted due to high BP. Here today with his adoptive mother and weight loss centre manager from the [employer] organization. He has no particular complaints. Denies testicular pain but having abdominal pain. When given prescription of Vicodin at the ER, it helped. He is out. He lives alone/independently but has 16 hr/day supervision. Answers questions appropriately. Enjoys art and in particular drawing cars. Previous therapy: 1) Carbo/etoposide x4 cylces. Right orchiectomy 11/21. Right orchiectomy path 11/21/2023: A. Right testicle, excision: - Scar consistent with regressed germ cell tumor. - Fibrosis of seminiferous tubules. Underwent biopsy of vertebral lesion. Pathology consistent with tophaceous gout. This was reviewed with several radiologist who concurred has appearance of tophaceous gout. Presents for ongoing oncologic management. Interim history: Underwent retroperitoneal lymphadenectomy 03/17/2024. Pathology: A. Lymph node mass, right precaval, excisional biopsy: - Necrotic tissue, consistent with treatment effect on tumor. - No viable neoplasm identified. B. Soft tissue, right spermatic cord, resection: - Benign fibrovascular and adipose tissue. C. Lymph node mass, right precaval, resection: - Necrotic mass with xanthomatous reaction and calcification, 4.6 cm gross greatest dimension, consistent with treatment effect on tumor. - No viable neoplasm identified. D. Lymph nodes, right precaval, regional resection: - Fibrosis or necrosis involving 4 lymph nodes, consistent with treatment effect on tumor. - No viable neoplasm identified. - 3 additional lymph nodes with no pathologic change (total 0/7). Denies abdominal pain. Appetite normal. Bowels have been moving on a regular basis. No trouble urinating. Swelling much better. Mild in left LE. PAST MEDICAL HISTORY Diagnosis Date Depression with anxiety 11/14/2023 Diabetes mellitus (HCC) Essential hypertension Mild intermittent asthma without complication 11/14/2023 RONALD (obstructive sleep apnea) 11/14/2023 Other specified pervasive developmental disorders, current or active state PDD Renal failure, unspecified Stage 3b chronic kidney disease (HCC) 11/14/2023 Type 2 diabetes mellitus without complication, without long-term current use of insulin (HCC) 11/14/2023 Unspecified intellectual disabilities borderline IQ 79 ALLERGIES Allergen Reactions Keflex [Cephalexin] Rash Social History Tobacco Use Smoking status: Never Smokeless tobacco: Never Vaping Use Vaping Use: Never used Substance Use Topics Alcohol use: Never Drug use: Never Family History Adopted: Yes Problem Relation Age of Onset No Known Problems Mother PHYSICAL EXAM: Vitals: Blood pressure 121/81, pulse 92, temperature (!) 35.9 C (96.7 F), temperature source Temporal, weight 122.9 kg (271 lb), SpO2 100%. Well-appearing and in no acute distress. EYES: Sclerae are anicteric bilaterally LYMPHATIC: There is no palpable cervical or supraclavicular adenopathy. RESPIRATORY: Inspiratory breath sounds are of normal intensity in all rios. CARDIOVASCULAR: Rhythm is regular. ABDOMEN: The abdomen is nondistended. Midline scar--well healed.. Extremities: Mild swelling left LE. SKIN: No rash. 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 -Complicated by stage 3b CKD. -Status post right orchiectomy. -PET demonstrated significant residual disease in the retroperitoneum. -Now s/p RP lymphadenectomy. KAY. -Per Dr. Palacios. -He is now in remission. He is a good likelihood that he has been cured. Will follow-up with Dr. Wilkerson and Dr. Brown. Does not need to see me any longer. He has follow-up scheduled for April and June and repeat scans in June. Serum beta-hCG and AFP should be monitored every 2 months for the next year. If his scans look good in June, they should be repeated in June 2025. 2. 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 He has most likely been cured. Should have repeat imaging in June or July 2024 and this is already been scheduled. Serum tumor markers to be checked every 2 months. Plan: -Every 2 month beta HCG and AFP. -OV after CTs in June. -Change CTs to without IV contrast. -Port out then if CTs okay. Dr. Rankin placed. Portions of this documentation were copied and pasted from previous office visit notes in order to provide a cohesive continuity of the history. The note has been reviewed and edited and updated as necessary. I spent a total of 20 minutes on the date of the service which included preparing to see the patient, [id number] patient care, completing clinical documentation, obtaining and/or reviewing separately obtained history, performing a medically appropriate examination, counseling and educating the patient/family/caregiver, ordering medications, tests, or procedures, communicating with other HCPs (not separately reported), and communicating results to the patient/family/caregiver. Hardik Wilkerson DO documented in this encounter [facility] 04-22-2024 Nurse Note Labs drawn at main [facility] 04-22-2024 Nurse Note Labs drawn at main documented in this encounter [facility] 04-19-2024 Miscellaneous Notes Tiffanie notified. Chantell Nguyen LPN His creatinine is up somewhat. Stop Lasix. Hardik Wilkerson DO Swelling is completely gone. Patient is established with Dr. Valderrama; saw him last in January and is scheduled to see him again in May. Patient does not have any more Lasix, did you want him to continue this? If so, Rx pended. Chantell Nguyen LPN Renal function overall has been stable on Lasix. This is swelling responding to Lasix? Also, to see if the filter press operator? Hardik Wilkerson DO documented in this encounter [facility] 04-19-2024 Telephone encounter Note Tiffanie notified. Chantell Nguyen LPN [facility] 04-19-2024 Telephone encounter Note His creatinine is up somewhat. Stop Lasix. Hardik Wilkerson DO [facility] 04-19-2024 Note [facility] 04-19-2024 History of Presen t illness Narrative Images from the original note were not included. 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 Diagnosed based on a retroperitoneal lymph node biopsy showing germ cell tumor consistent with seminoma. Right inguinal orchiectomy in November 2023 showed evidence of a burned-out germ cell tumor but no viable neoplasm. Prior to chemotherapy, his beta-hCG was elevated at 187 and his AFP was normal. His LDH was 864 with the upper limit of normal of 225. He had chronic kidney disease and other comorbidities and therefore was treated with 4 cycles of etoposide and carboplatinum rather than the standard regimen. Postchemotherapy scans show significant residual disease so I recommended an FDG PET scan which showed FDG avid retroperitoneal lymphadenopathy including a 2.4 cm right periaortic lymph node with an SUV max of 3.3, 1.6 cm right periaortic lymph node with an SUV max of 2.6 and a 3.3 cm centrally necrotic right periaortic lymph node with an SUV max of 4.3. There also was a vertebral body lesion that lit up and we biopsied it and it was benign. He underwent surgery March 17, 2024 for this and comes in now for follow-up. Interval history: He tolerated retroperitoneal lymph node dissection well and is recovering nicely. Current Outpatient Medications Medication Sig iv contrast (will be provided with radiology test) CT ABD/PEL -Inject, intravenously, once for 1 dose.No IV access, insert saline lock prior to the beginning of sedation, infusion, injection of imaging exam. Discontinue saline lock post exam. If Pt. has a central line or IVAD, may access for administration according to line specific nursing protocol. Once exam is complete flush line and de-access according to line specific nursing protocol in the CT contrast administration guidelines link. iv contrast (will be provided with radiology test) CT Chest W -Inject, intravenously, once for 1 dose.No IV access, insert saline lock prior to the beginning of sedation, infusion, injection of imaging exam. Discontinue saline lock post exam. If Pt. has a central line or IVAD, may access for administration according to line specific nursing protocol. Once exam is complete flush line and de-access according to line specific nursing protocol in the CT contrast administration guidelines link. furosemide (LASIX) 20 mg tablet take 1 tablet by mouth daily spironolactone (ALDACTONE) 25 mg tablet Take 1 tablet by mouth once daily. potassium chloride 20 mEq/15 mL solution Take 15 mL by mouth once daily. acetaminophen (TYLENOL) 325 mg tablet Take 2 tablets by mouth every 4 hours as needed for pain. TRUE METRIX GLUCOSE TEST STRIP test strip CHECK FASTING BLOOD SUGAR DAILY FARXIGA 10 mg tablet Take 10 mg by mouth once daily. TRULICITY 0.75 mg/0.5 mL pen injector Inject 0.75 mg subcutaneously one time a week. ammonium lactate (LAC-HYDRIN) 12 % lotion Ammonium Lactate (Amlactin) 57 GM lotion Active 57 GM TP TWICE A DAY April 28, 2017 4:39pm clonazePAM (KLONOPIN) 0.5 mg tablet Take 1 tablet by mouth twice daily. lamoTRIgine (LAMICTAL) 25 mg tablet Take 1 tablet by mouth every morning. lamoTRIgine (LAMICTAL) 100 mg tablet Take 1 tablet by mouth twice daily. buPROPion (WELLBUTRIN) 75 mg tablet Take 75 mg by mouth twice daily. fluvoxaMINE (LUVOX) 100 mg tablet Take 1 tablet by mouth twice daily. hydrOXYzine pamoate (VISTARIL) 50 mg capsule Take 1 capsule by mouth twice daily. fluticasone (FLONASE) 50 mcg/actuation nasal spray Use 2 Sprays in each nostril once daily. QUEtiapine (SEROQUEL) 200 mg tablet Take 200 mg by mouth twice daily. Cholecalciferol, Vitamin D3, (VITAMIN D-3) 2,000 unit cap Take 1 capsule by mouth once daily. oxybutynin (DITROPAN) 5 mg tablet Take 5 mg by mouth two times a day. montelukast (SINGULAIR) 10 mg tablet Take 10 mg by mouth daily at bedtime. risperidone (RISPERDAL) 1 mg ORAL Tab Take 1 mg by mouth four times daily. No current facility-administered medications for this visit. BP 126/72 Pulse 86 Temp 36.1 C (96.9 F) Resp 20 Wt 120.7 kg (266 lb 1.5 oz) SpO2 100% BMI 34.16 kg/m Pathology from his retroperitoneal lymph node dissection on March 17, 2024 showed no viable neoplasm. There was necrotic tissue and necrosis and fibrosis. Labs: Latest Reference Range & Units 04/15/24 10:26 04/19/24 10:07 Sodium 136 - 144 mmol/L 138 Potassium 3.7 - 5.1 mmol/L 4.1 Chloride 97 - 105 mmol/L 103 CO2 22 - 30 mmol/L 25 BUN 9 - 24 mg/dL 39 (H) Creatinine 0.73 - 1.22 mg/dL 2.69 (H) Glucose 74 - 99 mg/dL 90 Calcium 8.5 - 10.2 mg/dL 10.7 (H) Anion Gap 9 - 18 mmol/L 10 eGFR >=60 mL/min/1.73m 31 (L) WBC 3.70 - 11.00 k/uL 4.59 4.51 RBC 4.20 - 6.00 m/uL 4.34 4.11 (L) Hemoglobin 13.0 - 17.0 g/dL 12.4 (L) 12.0 (L) Hematocrit 39.0 - 51.0 % 38.0 (L) 35.7 (L) Platelet Count 150 - 400 k/uL 190 172 MCV 80.0 - 100.0 fL 87.6 86.9 MCH 26.0 - 34.0 pg 28.6 29.2 MCHC 30.5 - 36.0 g/dL 32.6 33.6 MPV 9.0 - 12.7 fL 8.4 (L) 8.7 (L) RDW-CV 11.5 - 15.0 % 15.0 15.6 (H) DTYPE Auto Auto Neut% % 67.1 68.3 Abs Neut (ANC) 1.45 - 7.50 k/uL 3.08 3.08 Lymph% % 15.7 12.4 Abs Lymph 1.00 - 4.00 k/uL 0.72 (L) 0.56 (L) Coleman% % 11.1 13.3 Abs Coleman <0.87 k/uL 0.51 0.60 Eosin% % 5.0 4.7 Abs Eosin <0.46 k/uL 0.23 0.21 Baso% % 0.9 1.1 Abs Baso <0.11 k/uL 0.04 0.05 Immature Gran % % 0.2 0.2 IMMATURE GRANS (ABS) <0.10 k/uL <0.03 <0.03 NRBC /100 WBC 0.0 0.0 Absolute nRBC <0.01 k/uL <0.01 <0.01 (H): Data is abnormally high (L): Data is abnormally low Latest Reference Range & Units 03/09/24 12:13 AFP <11.0 ng/mL <3.0 Beta hCG Quant Tumor Marker 0 - 3 IU/L <1 Creatinine Latest Ref Rng 0.73 - 1.22 mg/dL 01/02/2022 2.09 (H) 07/03/2023 2.65 (H) 07/14/2023 2.70 (H) 08/01/2023 2.06 (H) 08/11/2023 2.01 (H) 08/25/2023 2.64 (H) 09/01/2023 2.05 (H) 09/08/2023 2.26 (H) 09/16/2023 2.37 (H) 09/22/2023 2.00 (H) 09/29/2023 2.10 (H) 10/13/2023 2.49 (H) 11/14/2023 2.56 (H) 11/20/2023 2.88 (H) 11/25/2023 2.88 (H) 12/17/2023 2.46 (H) 02/06/2024 2.27 (H) 02/16/2024 2.44 (H) 02/23/2024 2.21 (H) 03/09/2024 2.74 (H) 03/11/2024 2.54 (H) 03/25/2024 1.99 (H) 04/01/2024 2.63 (H) 04/08/2024 2.58 (H) 04/15/2024 2.69 (H) Legend: (H) High ASSESSMENT/PLAN: 1. 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 He is a good likelihood that he has been cured. Will follow-up with Dr. Wilkerson and Dr. Brown. Does not need to see me any longer. He has follow-up scheduled for April and June and repeat scans in June. Serum beta-hCG and AFP should be monitored every 2 months for the next year. If his scans look good in June, they should be repeated in June 2025. 2. 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 He has most likely been cured. Should have repeat imaging in June or July 2024 and this is already been scheduled. Serum tumor markers to be checked every 2 months. 3. Stage 3b chronic kidney disease (HCC) - ICD9: 585.3, ICD10: N18.32 - eGFR: 29 Stable - Follow up with kidney medicine. He has establish care with filter press operator already. Alexus Palacios MD Medical Decision Making: Problems: Low: Stable chronic illness Moderate: 1+ chronic illnesses with change Data: Unique test result(s) reviewed: 3+ Medical Decision Making Level: 4 - Moderate documented in this encounter [facility] 04-19-2024 Nurse Note Additional intake questions: Has the patient had fever, nausea, vomiting, diarrhea, constipation, fatigue for > 1 week? No Does the patient have a decreased appetite? No Does patient want to see a Assessment Coordinator? No (yes to any of above refer patient to schedulers for dietitian appointment) ) Does patient have any new or increased numbness or tingling of extremities? No Is patient interested in fertility information? No Does patient need any prescription refills? No Does patient have an advanced directive in place? No, Patient referred to Resource Center Electronically Signed By: Meaghan Jefferson RN [facility] 04-19-2024 Nurse Note Additional intake questions: Has the patient had fever, nausea, vomiting, diarrhea, constipation, fatigue for > 1 week? No Does the patient have a decreased appetite? No Does patient want to see a Assessment Coordinator? No (yes to any of above refer patient to schedulers for dietitian appointment) ) Does patient have any new or increased numbness or tingling of extremities? No Is patient interested in fertility information? No Does patient need any prescription refills? No Does patient have an advanced directive in place? No, Patient referred to Resource Center Electronically Signed By: Meaghan Jefferson RN documented in this encounter [facility] 04-19-2024 Telephone encounter Note Swelling is completely gone. Patient is established with Dr. Valderrama; saw him last in January and is scheduled to see him again in May. Patient does not have any more Lasix, did you want him to continue this? If so, Rx pended. Chantell Nguyen LPN [facility] 04-18-2024 Telephone encounter Note Renal function overall has been stable on Lasix. This is swelling responding to Lasix? Also, to see if the filter press operator? Hardik Wilkerson DO [facility] 04-16-2024 Telephone encounter Note 2nd mobile number is pt's mother's cell phone. Pt autistic and has staff that cares for him at home. Requested mother to update pt that he will need labs and OV on Friday for post-surgical planning. Mother will communicate this update to pt. Friday's schedule with times reviewed. [facility] 04-16-2024 Miscellaneous Notes 2nd mobile number is pt's mother's cell phone. Pt autistic and has staff that cares for him at home. Requested mother to update pt that he will need labs and OV on Friday for post-surgical planning. Mother will communicate this update to pt. Friday's schedule with times reviewed. documented in this encounter [facility] 04-16-2024 Telephone encounter Note Attempted to RTC to pt from today. Pt inquiring if labs and OV on Friday necessary. Will attempt to call 2nd mobile number on file. [facility] 04-16-2024 Miscellaneous Notes Attempted to RTC to pt from today. Pt inquiring if labs and OV on Friday necessary. Will attempt to call 2nd mobile number on file. documented in this encounter [facility] 04-15-2024 Telephone encounter Note Parent Stewart not on contact list. Left VM with pt requesting RTC. [facility] 04-15-2024 Miscellaneous Notes Parent Stewart not on contact list. Left VM with pt requesting RTC. Dann Palacios('s) parent: Stewart is requesting to speak with someone regarding 6/3 appointments. Patient has been identified by name and birthdate. Duration of symptoms: N/A Requesting response back: call at home [phone] (home) [phone] (cell) Dax Otero April 15, 2024 documented in this encounter [facility] 04-15-2024 Telephone encounter Note Dann Palacios('s) parent: Stewart is requesting to speak with someone regarding / appointments. Patient has been identified by name and birthdate. Duration of symptoms: N/A Requesting response back: call at home [phone] (home) [phone] (cell) Dax Otero April 15, 2024 [facility] 04-05-2024 Telephone encounter Note Tiffanie housemaid notified. Alysia Medellin LPN [facility] 04-05-2024 Miscellaneous Notes Tiffanie housemaid notified. Alysia Medellin LPN ----- Message from Hardik Wilkerson DO sent at 04/04/2024 2:13 PM EDT ----- Labs show he can continue Lasix daily. Decrease liquid potassium supplement to 10 mL daily. Follow-up lab work as scheduled. documented in this encounter [facility] 04-05-2024 Telephone encounter Note ----- Message from Hardik Wilkerson DO sent at 04/04/2024 2:13 PM EDT ----- Labs show he can continue Lasix daily. Decrease liquid potassium supplement to 10 mL daily. Follow-up lab work as scheduled. [facility] 03-30-2024 History of Presen t illness Narrative PATIENT: Dann Palacios [id number] 03/30/2024 This clinic note was copied and updated from previous note from 12/02/2023 Chief Complaint: Testicular cancer History of Present Illness: Dann Palacios is a very pleasant 33 year old male who presents with a 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 He was diagnosed base on a retroperitoneal lymph node biopsy showing germ cell tumor consistent with seminoma. Due to his CKD and other co morbidities he was treated with 4 cycles of etoposide and carboplatin. Post-chemo scans showed significant residual disease. Patient in much better shape than he was last time, and is able to walk and stand normally. S/p right radical orchiectomy 11/21/2023. Had bone biopsy 01/27/2024 that noted tophaceous gout and negative for neoplasm. Now S/p RPLND on 03/17/2024. Date of Initial Diagnosis/Orchiectomy: 11/21/2023 Side of Initial Diagnosis: right The histologic components of the orchiectomy were Seminoma % = 100. The pre-orchiectomy tumor markers were AFP = <3 bHCG = <1 LDH = 414 The post-orchiectomy tumor markers on 03/09/24 were AFP = <3 bHCG = <1 LDH = 204 Chemotherapy: Yes Chemotherapy type: etoposide and carboplatin. Number of Cycles completed: 4. RPLND: Yes on 03/17/2024 Number of nodes removed:8. Number of nodes showing residual germ cell cancer 0 (all necrosis) Interval history: Patient presenting for post op follow s/p RPLND on 03/17/2024. Physical Exam ( Patient is a 33 year old male Constitutional: Vitals: There were no vitals taken for this visit. General Appearance Adult: Alert, no acute distress, oriented Mouth: throat/mouth:normal as far as I can tell behind the mask Lungs/Repiratory: no respiratory distress, or pursed lip breathing Heart: No obvious jugular venous distension present, normal heart rate Abdomen: soft, nontender, no organomegaly or masses, Labs and Pathology: AFP 09/16/2023 Component Ref Range & Units 1 mo ago (09/16/23) 1 mo ago (08/25/23) 2 mo ago (08/01/23) 3 mo ago (07/14/23) 3 mo ago (07/03/23) AFP <11.0 ng/mL <3.0 3.3 CM 4.9 CM <3.0 CM <3.0 LD Lactate Dehydro 09/16/2023 Component Ref Range & Units 1 mo ago (09/16/23) 1 mo ago (08/25/23) 2 mo ago (08/01/23) 3 mo ago (07/14/23) 3 mo ago (07/03/23) LD 135 - 225 U/L 414 High 470 High 355 High 552 High 864 High BETA HCG Quant 09/16/2023 Component Ref Range & Units 1 mo ago (09/16/23) 1 mo ago (08/25/23) 2 mo ago (08/01/23) 3 mo ago (07/14/23) 3 mo ago (07/03/23) Beta hCG Quant Tumor Marker 0 - 3 IU/L <1 <1 CM 1 CM 187 High CM 103 High I personally reviewed all applicable laboratory and pathology data reviewed with patient Significant for testicular cancer 11/21/2023 SURGICAL PATHOLOGY A. Right testicle, excision: - Scar consistent with regressed germ cell tumor. - Fibrosis of seminiferous tubules. MISSAEL/jocy 11/26/2023 Surgical Pathology 01/27/2024 FINAL DIAGNOSIS Bone, L3 spinous process, biopsy: - Tophaceous gout, see comment. - Negative for neoplasm. RPLND 03/17/24 FINAL DIAGNOSIS A. Lymph node mass, right precaval, excisional biopsy: - Necrotic tissue, consistent with treatment effect on tumor. - No viable neoplasm identified. B. Soft tissue, right spermatic cord, resection: - Benign fibrovascular and adipose tissue. C. Lymph node mass, right precaval, resection: - Necrotic mass with xanthomatous reaction and calcification, 4.6 cm gross greatest dimension, consistent with treatment effect on tumor. - No viable neoplasm identified. D. Lymph nodes, right precaval, regional resection: - Fibrosis or necrosis involving 4 lymph nodes, consistent with treatment effect on tumor. - No viable neoplasm identified. - 3 additional lymph nodes with no pathologic change (total 0/7). Creatinine (mg/dL) Date Value 03/25/2024 1.99 03/21/2024 2.39 03/20/2024 2.33 03/19/2024 2.65 03/18/2024 2.90 03/17/2024 2.69 03/11/2024 2.54 03/09/2024 2.74 03/03/2024 2.37 02/23/2024 2.21 01/02/2022 2.09 02/22/2014 1.75 09/02/2007 1.5 05/19/2006 1.4 04/22/2005 1.4 07/09/2004 1.6 02/28/2004 1.6 08/18/2003 1.7 03/17/2003 1.9 01/25/2003 2.4 Imaging: CXR: 03/17/2024 IMPRESSION: Left central line and endotracheal tube in place as described. PET CT 12/15/2023 IMPRESSION: HEAD/NECK: * No FDG avid neoplastic process. CHEST: * No FDG avid neoplastic process. ABDOMEN/PELVIS: * FDG avid bulky retroperitoneal lymphadenopathy as detailed suspicious for metastatic disease. MUSCULOSKELETAL: * FDG avid lytic lesion involving the spinous processes of the L3 vertebral body, suspicious for metastasis. CT abd/pel 10/13/2023 IMPRESSION: Stable interval exam. Stable bulky retroperitoneal complex adenopathy with partial calcification. I personally viewed all applicable imaging and interpreted them and went over the results with the patient. CT Chest WO CON 09/17/2023 IMPRESSION: Improved bulky retroperitoneal adenopathy in keeping with treatment response. Slightly worsened bilateral hydroureteronephrosis. Significant mass effect upon the inferior vena cava remains. 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 His post chemo Orchiectomy showed no residual viable cancer. However PET scan shows PET positive masses in retroperitoneal and also in one of the vertebral bones. Bone biopsy of one of the PET positive lesions was negative for cancer. Now s/p RPLND on 03/17/2024. Pathology shows necrosis. No issues post-op, adhering to low fat diet. Plan: - Continue with low fat diet for a few more weeks. CT chest, CT Abdomen, BMP and CBC in 3 mo, RTC then By signing my name below, I, Nichelle Rader, attest that this documentation has been prepared under the direction and in the presence of Antonio Brown MD. Electronically signed:Fatuma Cabrera, March 30, 2024 3:12 PM I agree with the Chief Complaint, ROS, and Past Histories independently gathered by the clinical child support investigator including scribe and or medical student and or BRAYDON and or resident or fellow and the remaining scribed note accurately describes my personal service to the patient. Antonio Brown MD, MS [facility] [place] [facility] documented in this encounter [facility] 03-30-2024 Note [facility] 03-21-2024 Note [facility] 03-21-2024 Note [facility] 03-20-2024 Note [facility] 03-20-2024 Note [facility] 03-19-2024 Note [facility] 03-19-2024 Note [facility] 03-18-2024 Note [facility] 03-18-2024 Note [facility] 03-17-2024 Note [facility] 03-17-2024 Note [facility] 03-17-2024 Note [facility] 03-17-2024 Note [facility] 03-17-2024 Note [facility] 03-16-2024 History of Presen t illness Narrative PATIENT: Dann Palacios [id number] 03/16/2024 This clinic note was copied and updated from previous note from 12/02/2023 Chief Complaint: Testicular cancer History of Present Illness: Dann Palaciso is a very pleasant 33 year old male who presents with a 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 He was diagnosed base on a retroperitoneal lymph node biopsy showing germ cell tumor consistent with seminoma. Due to kis CKD and other co morbidities he was treated with 4 cycles of etoposide and carboplatin. Post-chemo scans showed significant residual disease. Patient in much better shape than he was last time, and is able to walk and stand normally. S/p right radical orchiectomy 11/21/2023 FINAL DIAGNOSIS A. Right testicle, excision: - Scar consistent with regressed germ cell tumor. - Fibrosis of seminiferous tubules. PET CT 12/15/2023 IMPRESSION: HEAD/NECK: * No FDG avid neoplastic process. CHEST: * No FDG avid neoplastic process. ABDOMEN/PELVIS: * FDG avid bulky retroperitoneal lymphadenopathy as detailed suspicious for metastatic disease. MUSCULOSKELETAL: * FDG avid lytic lesion involving the spinous processes of the L3 vertebral body, suspicious for metastasis. Had bone biopsy 01/27/2024 that noted tophaceous gout and negative for neoplasm. Interval history: Patient presenting for pre op. Scheduled for RPLND tomorrow Physical Exam ( Patient is a 33 year old male Constitutional: Vitals: Blood pressure 129/87, pulse 91, weight 128 kg (282 lb 3 oz). General Appearance Adult: Alert, no acute distress, oriented Mouth: throat/mouth:normal as far as I can tell behind the mask Lungs/Repiratory: no respiratory distress, or pursed lip breathing Heart: No obvious jugular venous distension present, normal heart rate Abdomen: soft, nontender, no organomegaly or masses, Labs and Pathology: AFP 09/16/2023 Component Ref Range & Units 1 mo ago (09/16/23) 1 mo ago (08/25/23) 2 mo ago (08/01/23) 3 mo ago (07/14/23) 3 mo ago (07/03/23) AFP <11.0 ng/mL <3.0 3.3 CM 4.9 CM <3.0 CM <3.0 LD Lactate Dehydro 09/16/2023 Component Ref Range & Units 1 mo ago (09/16/23) 1 mo ago (08/25/23) 2 mo ago (08/01/23) 3 mo ago (07/14/23) 3 mo ago (07/03/23) LD 135 - 225 U/L 414 High 470 High 355 High 552 High 864 High BETA HCG Quant 09/16/2023 Component Ref Range & Units 1 mo ago (09/16/23) 1 mo ago (08/25/23) 2 mo ago (08/01/23) 3 mo ago (07/14/23) 3 mo ago (07/03/23) Beta hCG Quant Tumor Marker 0 - 3 IU/L <1 <1 CM 1 CM 187 High CM 103 High I personally reviewed all applicable laboratory and pathology data reviewed with patient Significant for testicular cancer 11/21/2023 SURGICAL PATHOLOGY A. Right testicle, excision: - Scar consistent with regressed germ cell tumor. - Fibrosis of seminiferous tubules. MISSAEL/jocy 11/26/2023 Surgical Pathology 01/27/2024 FINAL DIAGNOSIS Bone, L3 spinous process, biopsy: - Tophaceous gout, see comment. - Negative for neoplasm. Creatinine (mg/dL) Date Value 03/11/2024 2.54 03/09/2024 2.74 03/03/2024 2.37 02/23/2024 2.21 02/16/2024 2.44 02/06/2024 2.27 12/17/2023 2.46 11/25/2023 2.88 11/20/2023 2.88 11/14/2023 2.56 01/02/2022 2.09 02/22/2014 1.75 09/02/2007 1.5 05/19/2006 1.4 04/22/2005 1.4 07/09/2004 1.6 02/28/2004 1.6 08/18/2003 1.7 03/17/2003 1.9 01/25/2003 2.4 Imaging: CT abd/pel 10/13/2023 IMPRESSION: Stable interval exam. Stable bulky retroperitoneal complex adenopathy with partial calcification. I personally viewed all applicable imaging and interpreted them and went over the results with the patient. CT Chest WO CON 09/17/2023 IMPRESSION: Improved bulky retroperitoneal adenopathy in keeping with treatment response. Slightly worsened bilateral hydroureteronephrosis. Significant mass effect upon the inferior vena cava remains. 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 Patient was very debilitated after the chemo and has taken several months to recover. He's much stronger now. His post chemo Orchiectomy showed no residual viable cancer. His masses have shrunk somewhat over the past few months. Had a long discussion with Dr. Palacios and he would like to get a sampling of the retroperitoneal masses, just to see if there is residual cancer However PET scan shows PET positive masses in retroperitoneal and also in one of the vertebral bones. Bone biopsy of one of the PET positive lesions was negative for cancer. Scheduled for RPLND tomorrow, possible nephrectomy, though would error on the side of leaving tissue given his Chronic Kidney Disease rather than taking the kidney if at all possible. Plan: Proceed with RPLND sampling as scheduled. Will try to get a urine sample today. Caprice Nguyen APRN.ANESTHESIOLOGY PHYSICIAN By signing my name below, I, Nichelle Rader, attest that this documentation has been prepared under the direction and in the presence of Antonio Brown MD. Electronically signed:Fatuma Cabrera, March 16, 2024 1:25 PM I agree with the Chief Complaint, ROS, and Past Histories independently gathered by the clinical child support investigator including scribe and or medical student and or BRAYDON and or resident or fellow and the remaining scribed note accurately describes my personal service to the patient. Antonio Brown MD, MS [facility] [place] [facility] documented in this encounter [facility] 03-16-2024 Note [facility] 03-12-2024 Telephone encounter Note Called and spoke with Tiffanie. Scheduled for weekly lab work. Monica Akhtar [facility] 03-12-2024 Miscellaneous Notes Called and spoke with Tiffanie. Scheduled for weekly lab work. Monica Akhtar PSS- please contact Tiffanie to schedule weekly BMP beginning 03/25/2024. Patient will be in the hospital starting 03/17/2024, so no need to schedule BMP on 03/18/2024. Tiffanie is aware to have patient take potassium every other day going forward. Chantell Nguyen LPN documented in this encounter [facility] 03-11-2024 Telephone encounter Note PSS- please contact Tiffanie to schedule weekly BMP beginning 03/25/2024. Patient will be in the hospital starting 03/17/2024, so no need to schedule BMP on 03/18/2024. Tiffanie is aware to have patient take potassium every other day going forward. Chantell Nguyen LPN [facility] 03-09-2024 History of Presen t illness Narrative The patient did not show up for this appointment. documented in this encounter [facility] 03-09-2024 Note HNO ID: [id number] Author: NICKI ADAM APRN.VALDO Service: ? Author Type: Nurse Practitioner Type: Progress Notes Filed: 03/10/2024 09:26 Note Text: The patient did not show up for this appointment. [facility] 03-09-2024 Instructions Caleb Duenas MD - 03/09/2024 2:15 PM EDT PATIENT PREOPERATIVE INSTRUCTIONS Antonio Brown MD has scheduled you for your procedure at this surgery center: [facility] Scheduling Office: [phone] --[address] [place] [address]. Please read below carefully for your personalized instructions. Dietary Restrictions: - Nothing to eat or drink after midnight except for a sip of water with approved medications. Medications: Unless instructed differently below, stay on all of your medications until your surgery. If you start any new medications after today's visit, please contact your surgeon. Pre-Surgery Med Instructions Medication Instructions furosemide (LASIX) 20 mg tablet Do not take the day of surgery spironolactone (ALDACTONE) 25 mg tablet Do not take the day of surgery potassium chloride 20 mEq/15 mL solution Take the day of surgery with a small sip of water FARXIGA 10 mg tablet Stop 3 days before surgery TRULICITY 0.75 mg/0.5 mL pen injector Stop 7 days before surgery clonazePAM (KLONOPIN) 0.5 mg tablet Take the day of surgery with a small sip of water lamoTRIgine (LAMICTAL) 25 mg tablet Take the day of surgery with a small sip of water lamoTRIgine (LAMICTAL) 100 mg tablet Take the day of surgery with a small sip of water buPROPion (WELLBUTRIN) 75 mg tablet Take the day of surgery with a small sip of water fluvoxaMINE (LUVOX) 100 mg tablet Take the day of surgery with a small sip of water hydrOXYzine pamoate (VISTARIL) 50 mg capsule Take the day of surgery with a small sip of water QUEtiapine (SEROQUEL) 200 mg tablet Take the day of surgery with a small sip of water oxybutynin (DITROPAN) 5 mg tablet Take the day of surgery with a small sip of water montelukast (SINGULAIR) 10 mg tablet Take the day of surgery with a small sip of water risperidone (RISPERDAL) 1 mg ORAL Tab Take the day of surgery with a small sip of water If you start any new medications after today's visit, please contact the surgeon's office. Blood Thinning Medications: - Stop NSAIDS (Ibuprofen, Advil, Aleve, Motrin, Celebrex, Mobic, etc.) 7 days before surgery, as directed by your surgeon. Important Reminders: - Candy, mints, and tobacco products are NOT permitted the morning of surgery. - Hearing aids, dentures and glasses may be worn the morning of surgery. - NO jewelry, body piercings, makeup, hairpins or contacts are to be worn the day of surgery. If you develop symptoms such as a fever, cold, or flu, or have other changes to your health within TWO DAYS of scheduled surgery or the morning of surgery, please contact the surgery center above. Personal Belongings: -Please have photo ID and insurance cards. -If you do not have a copy of advance directives on file with us, please bring a copy with you on the day of surgery. - Leave ALL valuables and money at home or with family members. Arrival Time for Surgery: - To obtain your arrival time for surgery, call your physician's office the day before your surgery. - If your surgery is scheduled for Friday, call the Friday before. Your surgeon s e commerce retailer will tell you what time to call the office. - If you have not reached the departmental e commerce retailer by 5 P.M., call [phone] after 5 P.M. the day before your surgery. Please be aware that emergency situations arise, which may delay or change your surgical time. If this happens, we will notify you as soon as possible and regret any inconvenience. If you already have an Advance Directive, please fax a copy to [phone] or email to for it to be added to your chart. If you do not have an Advance Directive, you can find the appropriate form and more information at [email or web address]. We recommend that you complete the Advance Directive form found on the website and bring it with you the day of your surgery. It can be witnessed and scanned into your chart that day. Caleb Duenas MD documented in this encounter [facility] 03-09-2024 History and physical note Images from the original note were not included. HISTORY AND PHYSICAL EXAMINATION SERVICE DATE: 03/09/2024 SERVICE TIME: 2:11 PM PRIMARY CARE PHYSICIAN: [facility] Guardado MD, MD Assessment Patient has the following medical conditions which may affect héctor-operative course: Hypertension AP: stable, followed by PCP. Baseline 130-140/80s Mild intermittent asthma without complication AP: Follows with PCP. Does not use inhaler. Denies recent exacerbations or hospitalizations. RONALD (obstructive sleep apnea) AP: does not use CPAP Type 2 diabetes mellitus without complication, without long-term current use of insulin ([facility]) AP: Reports compliance to medication farxiga and Trulicity. Reports BS checks. Following with PCP. Autism AP: stable. Patient lives in his apartment with the help of caregivers during the day. - able to carry our conversation with correct responses and is aware of the medications he takes. 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 Trinidad. On conservative management. - Follows with nephrology. Hyperparathyroidism due to renal insufficiency (HCC) AP: K normally 3 Green Activity Status Index: METS: Walk indoors, such as around the house (1.75 METs) Do light work around the house, such as dusting or washing dishes (2.70 METs) Take care of self; that is eating, dressing, bathing, using the toilet (2.75 METs) Walk a block or two on level ground (2.75 METs) Do moderate work around the house, such as vacuuming, sweeping floors, or carrying in groceries (3.50 METs) Cannot do yardwork, such as raking leaves, weeding, or pushing a power mower DASI Score: 13.45 Patient denies any chest pain or undue shortness of breath with the above physical activity. Clinical Frailty Scale: 3. Well, with treated comorbid disease STOP-Bang Score: STOP-Bang Score: 0 (Hx of sleep apnea) [id number] Score: Age: <65 Sex: male CHF history: No Hypertension history: Yes Stroke/TIA/thromboembolism history: No Vascular disease history: No Diabetes history: Yes [id number] Score: 2 ANESTHESIA FINDINGS: Intubation History: Significant Anesthesia Considerations: potential difficult intubation Airway History: I - PHYSICAL EVALUATION AIRWAY Patient intubated: No. Tracheostomy tube not present Mallampati: IV. TM distance: >3 FB. Neck ROM: full ROM without neurological symptoms. Mouth opening: adequate. Short neck: yes. Thick neck: yes DENTAL Dental findings: teeth intact. II - ANESTHESIA PLAN Beta Jessi Monitoring Plan Post Procedure Analgesic Plan Prepared for Surgery: optimally prepared for surgery. CONSULTS: Patient does not require consults for optimization at this time Planned Anesthetic: The Following Tests/Procedures Have Been Initiated: No orders of the defined types were placed in this encounter. REASON FOR VISIT: Dann Palacios is a 33 year old male who is scheduled for Procedure(s): LYMPHADENECTOMY RETROPERITONEAL (N/A) at the request of Dr. Antonio Brown for consultation. My final recommendation will be communicated back to the requesting physician by way of shared medical record or letter. 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) Mild Intermittent Asthma Without Complication Ronald (Obstructive Sleep Apnea) Type 2 Diabetes Mellitus Without Complication, Without Long-Term Current Use of Insulin (Hcc) Depression With Anxiety Stage 3b Chronic Kidney Disease (Hcc) Stage 3a Chronic Kidney Disease (Hcc) COVID-19 Immunization Status Overdue - Covid-19 Vaccine (3 - Moderna risk series) Overdue since 01/24/2021 12/27/2020 Outside Immunization: COVID-19, mRNA, LNP-S, PF, 100 mcg/0.5mL dose or 50 mcg/0.25mL dose 11/30/2020 Outside Immunization: COVID-19, mRNA, LNP-S, PF, 100 mcg/0.5mL dose or 50 mcg/0.25mL dose CHIEF COMPLAINT: Metastatic testicular cancer HPI: The patient is a 33 yo male with a PMH significant for HTN, CKD stage 3 (posterior urethral valves), obesity, diabetes and autism with diffuse enlargement of retroperitoneal lymphadenopathy. 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 REVIEW OF SYSTEMS: General: No weight loss, malaise or fevers. Neurological: Negative for: headaches, impaired sensorium and strokes. Respiratory: Negative for: asthma, COPD, current cough, dyspnea, pneumonia within 6 weeks, tobacco use, URI < 2 weeks and obstructive sleep apnea. Cardiovascular: Negative for: angina, anticoagulation therapy, arrhythmia, CAD, chest pain, CHF, congenital heart defect, DVT/PE, hyperlipidemia, hypertension, murmur/valvular heart disease and PVD. GI: Negative for: abdominal pain, GERD, liver disease, nausea, vomiting and ETOH >2 drinks/day. : Negative for: dysuria, frequent urination, hematuria, nephrolithiasis and renal failure. Endocrine: Negative for: diabetes mellitus, hyperthyroidism, hypothyroidism and steroid for chronic problem. Hematology: No history of bleeding or clotting disorder. Patient is not taking anti-coagulation or platelet medications. No history of hematological symptoms or problems. Oncology: Positive for: CA metastasis. Negative for: chemo within 30 days. Psych: No history of psychiatric symptoms or problems. Musculoskeletal: Negative for joint pain or swelling, back pain or muscle pain. Skin: Negative for lesions, rash and itching. PAST MEDICAL HISTORY Diagnosis Date Depression with anxiety 11/14/2023 Diabetes mellitus (HCC) Essential hypertension Mild intermittent asthma without complication 11/14/2023 RONALD (obstructive sleep apnea) 11/14/2023 Other specified pervasive developmental disorders, current or active state PDD Renal failure, unspecified Stage 3b chronic kidney disease (HCC) 11/14/2023 Type 2 diabetes mellitus without complication, without long-term current use of insulin ([facility]) 11/14/2023 Unspecified intellectual disabilities borderline IQ 79 PAST SURGICAL HISTORY Procedure Laterality Date ORCHIECTOMY SIMPLE Right 2022 FAMILY HISTORY Adopted: Yes Problem Relation Age of Onset No Known Problems Mother Social History Tobacco Use Smoking status: Never Smokeless tobacco: Never Vaping Use Vaping Use: Never used Substance Use Topics Alcohol use: Never Drug use: Never Prior to Admission medications as of 03/03/24 0932 Medication Sig Last Dose Taking furosemide (LASIX) 20 mg tablet take 1 tablet by mouth daily spironolactone (ALDACTONE) 25 mg tablet Take 1 tablet by mouth once daily. potassium chloride 20 mEq/15 mL solution Take 15 mL by mouth once daily. acetaminophen (TYLENOL) 325 mg tablet Take 2 tablets by mouth every 4 hours as needed for pain. TRUE METRIX GLUCOSE TEST STRIP test strip CHECK FASTING BLOOD SUGAR DAILY FARXIGA 10 mg tablet Take 10 mg by mouth once daily. TRULICITY 0.75 mg/0.5 mL pen injector Inject 0.75 mg subcutaneously one time a week. ammonium lactate (LAC-HYDRIN) 12 % lotion Ammonium Lactate (Amlactin) 57 GM lotion Active 57 GM TP TWICE A DAY April 28, 2017 4:39pm clonazePAM (KLONOPIN) 0.5 mg tablet Take 1 tablet by mouth twice daily. lamoTRIgine (LAMICTAL) 25 mg tablet Take 1 tablet by mouth every morning. lamoTRIgine (LAMICTAL) 100 mg tablet Take 1 tablet by mouth twice daily. buPROPion (WELLBUTRIN) 75 mg tablet Take 75 mg by mouth twice daily. fluvoxaMINE (LUVOX) 100 mg tablet Take 1 tablet by mouth twice daily. hydrOXYzine pamoate (VISTARIL) 50 mg capsule Take 1 capsule by mouth twice daily. fluticasone (FLONASE) 50 mcg/actuation nasal spray Use 2 Sprays in each nostril once daily. QUEtiapine (SEROQUEL) 200 mg tablet Take 200 mg by mouth twice daily. Cholecalciferol, Vitamin D3, (VITAMIN D-3) 2,000 unit cap Take 1 capsule by mouth once daily. oxybutynin (DITROPAN) 5 mg tablet Take 5 mg by mouth two times a day. montelukast (SINGULAIR) 10 mg tablet Take 10 mg by mouth daily at bedtime. risperidone (RISPERDAL) 1 mg ORAL Tab Take 1 mg by mouth four times daily. No medication comments found. ALLERGIES Allergen Reactions Keflex [Cephalexin] Rash Objective PHYSICAL EXAM: General: alert and oriented and healthy appearance. Pertinent negatives noted - not distressed. Skin: normal color, no rash or lesions. HEENT: EOM intact and pupils equal round. Cardiovascular: regular rate and rhythm, normal S1 and S2, no rub, murmurs, or gallop. Respiratory: normal breath sounds, no wheezes or crackles. No chest wall deformity or tenderness. Abdomen: bowel sounds present and soft. Pertinent negatives noted - not tender. Extremities: no deformity, no edema or tenderness, no joint swelling or clubbing. Neurological: normal cognition and motor skills. Gait normal. No weakness or sensory deficit. PAIN ASSESSMENT: VITALS: BP 131/79 Pulse 86 Temp (Src) 97.4 (Temporal) Ht 6' 2 (1.88m) Wt 280 lb 6.8 oz (127.2kg) SpO2 97% BMI 35.99 kg/(m^2). Diagnostic tests reviewed for today's visit: Lab Value Units Date High Low HB 15.7 g/dL 03/09/2024 17.0 13.0 HCT 47.5 % 03/09/2024 51.0 39.0 WBC 4.66 k/uL 03/09/2024 11.00 3.70 PLT 207 k/uL 03/09/2024 400 150 NA 136 mmol/L 03/03/2024 144 136 K 3.0 mmol/L 03/03/2024 5.1 3.7 GLUC 89 mg/dL 03/03/2024 99 74 BUN 29 mg/dL 03/03/2024 24 9 CREAT 2.37 mg/dL 03/03/2024 1.22 0.73 PTSEC 11.1 sec 03/09/2024 13.0 9.7 INR 1.0 no uni* 03/09/2024 1.3 0.9 APTT 29.9 sec 03/09/2024 32.4 23.0 ALT 22 U/L 02/23/2024 54 10 AST 18 U/L 02/23/2024 40 14 TBILI 0.2 mg/dL 02/23/2024 1.3 0.2 TSH No results within date range. Lab Value Units Date High Low HCGQT No results within date range. UHCG No results within date range. HCG, BODY* No results within date range. Lab Value Units Date High Low ABORHD No results within date range. ABSCREEN No results within date range. Hemoglobin A1C (%) Date Value 11/14/2023 4.0 Recent Results (from the past 8760 hour(s)) ECG COMPLETE Collection Time: 11/14/23 1:29 PM Result Value Ventricular Rate 75 Atrial Rate 75 P-R Interval 146 QRS Duration 100 QT Interval 372 QTC Calculation (Bazett) 415 Calculated P [place] 15 Calculated R [place] 65 Calculated T [place] 46 Impression NORMAL SINUS RHYTHM NORMAL ECG Confirmed by CALEB LLANES MD ([id number]) on 12/07/2023 7:58:26 PM No results found for this or any previous visit (from the past 37786 hour(s)). Instructions Given to Patient: Instructions located in the after visit summary. Patient given verbal and written preop instructions and voices comprehension and compliance. SIGNATURE: Caleb Duenas MD PATIENT NAME: Dann Palacios DATE: March 09, 2024 TIME: 12:51 PM PAGER/CONTACT #: Attending Note I evaluated the patient and personally participated in the hazel components. I agree with the resident's findings and plan as documented and have discussed the case and management of the patient's care with the resident. Signature: Misty Mejia MD Date: 03/09/2024 Time: 3:08 PM [facility] 03-09-2024 History and physical note Images from the original note were not included. HISTORY AND PHYSICAL EXAMINATION SERVICE DATE: 03/09/2024 SERVICE TIME: 2:11 PM PRIMARY CARE PHYSICIAN: [place] Guardado MD, MD Assessment Patient has the following medical conditions which may affect héctor-operative course: Hypertension AP: stable, followed by PCP. Baseline 130-140/80s Mild intermittent asthma without complication AP: Follows with PCP. Does not use inhaler. Denies recent exacerbations or hospitalizations. RONALD (obstructive sleep apnea) AP: does not use CPAP Type 2 diabetes mellitus without complication, without long-term current use of insulin (HCC) AP: Reports compliance to medication farxiga and Trulicity. Reports BS checks. Following with PCP. Autism AP: stable. Patient lives in his apartment with the help of caregivers during the day. - able to carry our conversation with correct responses and is aware of the medications he takes. 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 Trinidad. On conservative management. - Follows with nephrology. Hyperparathyroidism due to renal insufficiency (HCC) AP: K normally 3 Green Activity Status Index: METS: Walk indoors, such as around the house (1.75 METs) Do light work around the house, such as dusting or washing dishes (2.70 METs) Take care of self; that is eating, dressing, bathing, using the toilet (2.75 METs) Walk a block or two on level ground (2.75 METs) Do moderate work around the house, such as vacuuming, sweeping floors, or carrying in groceries (3.50 METs) Cannot do yardwork, such as raking leaves, weeding, or pushing a power mower DASI Score: 13.45 Patient denies any chest pain or undue shortness of breath with the above physical activity. Clinical Frailty Scale: 3. Well, with treated comorbid disease STOP-Bang Score: STOP-Bang Score: 0 (Hx of sleep apnea) [id number] Score: Age: <65 Sex: male CHF history: No Hypertension history: Yes Stroke/TIA/thromboembolism history: No Vascular disease history: No Diabetes history: Yes [id number] Score: 2 ANESTHESIA FINDINGS: Intubation History: Significant Anesthesia Considerations: potential difficult intubation Airway History: I - PHYSICAL EVALUATION AIRWAY Patient intubated: No. Tracheostomy tube not present Mallampati: IV. TM distance: >3 FB. Neck ROM: full ROM without neurological symptoms. Mouth opening: adequate. Short neck: yes. Thick neck: yes DENTAL Dental findings: teeth intact. II - ANESTHESIA PLAN Beta Jessi Monitoring Plan Post Procedure Analgesic Plan Prepared for Surgery: optimally prepared for surgery. CONSULTS: Patient does not require consults for optimization at this time Planned Anesthetic: The Following Tests/Procedures Have Been Initiated: No orders of the defined types were placed in this encounter. REASON FOR VISIT: Dann Palacios is a 33 year old male who is scheduled for Procedure(s): LYMPHADENECTOMY RETROPERITONEAL (N/A) at the request of Dr. Antonio Brown for consultation. My final recommendation will be communicated back to the requesting physician by way of shared medical record or letter. 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) Mild Intermittent Asthma Without Complication Ronald (Obstructive Sleep Apnea) Type 2 Diabetes Mellitus Without Complication, Without Long-Term Current Use of Insulin (Hcc) Depression With Anxiety Stage 3b Chronic Kidney Disease (Hcc) Stage 3a Chronic Kidney Disease (Hcc) COVID-19 Immunization Status Overdue - Covid-19 Vaccine (3 - Moderna risk series) Overdue since 01/24/2021 12/27/2020 Outside Immunization: COVID-19, mRNA, LNP-S, PF, 100 mcg/0.5mL dose or 50 mcg/0.25mL dose 11/30/2020 Outside Immunization: COVID-19, mRNA, LNP-S, PF, 100 mcg/0.5mL dose or 50 mcg/0.25mL dose CHIEF COMPLAINT: Metastatic testicular cancer HPI: The patient is a 33 yo male with a PMH significant for HTN, CKD stage 3 (posterior urethral valves), obesity, diabetes and autism with diffuse enlargement of retroperitoneal lymphadenopathy. 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 REVIEW OF SYSTEMS: General: No weight loss, malaise or fevers. Neurological: Negative for: headaches, impaired sensorium and strokes. Respiratory: Negative for: asthma, COPD, current cough, dyspnea, pneumonia within 6 weeks, tobacco use, URI < 2 weeks and obstructive sleep apnea. Cardiovascular: Negative for: angina, anticoagulation therapy, arrhythmia, CAD, chest pain, CHF, congenital heart defect, DVT/PE, hyperlipidemia, hypertension, murmur/valvular heart disease and PVD. GI: Negative for: abdominal pain, GERD, liver disease, nausea, vomiting and ETOH >2 drinks/day. : Negative for: dysuria, frequent urination, hematuria, nephrolithiasis and renal failure. Endocrine: Negative for: diabetes mellitus, hyperthyroidism, hypothyroidism and steroid for chronic problem. Hematology: No history of bleeding or clotting disorder. Patient is not taking anti-coagulation or platelet medications. No history of hematological symptoms or problems. Oncology: Positive for: CA metastasis. Negative for: chemo within 30 days. Psych: No history of psychiatric symptoms or problems. Musculoskeletal: Negative for joint pain or swelling, back pain or muscle pain. Skin: Negative for lesions, rash and itching. PAST MEDICAL HISTORY Diagnosis Date Depression with anxiety 11/14/2023 Diabetes mellitus (HCC) Essential hypertension Mild intermittent asthma without complication 11/14/2023 RONALD (obstructive sleep apnea) 11/14/2023 Other specified pervasive developmental disorders, current or active state PDD Renal failure, unspecified Stage 3b chronic kidney disease (HCC) 11/14/2023 Type 2 diabetes mellitus without complication, without long-term current use of insulin (HCC) 11/14/2023 Unspecified intellectual disabilities borderline IQ 79 PAST SURGICAL HISTORY Procedure Laterality Date ORCHIECTOMY SIMPLE Right 2022 FAMILY HISTORY Adopted: Yes Problem Relation Age of Onset No Known Problems Mother Social History Tobacco Use Smoking status: Never Smokeless tobacco: Never Vaping Use Vaping Use: Never used Substance Use Topics Alcohol use: Never Drug use: Never Prior to Admission medications as of 03/03/24 0932 Medication Sig Last Dose Taking furosemide (LASIX) 20 mg tablet take 1 tablet by mouth daily spironolactone (ALDACTONE) 25 mg tablet Take 1 tablet by mouth once daily. potassium chloride 20 mEq/15 mL solution Take 15 mL by mouth once daily. acetaminophen (TYLENOL) 325 mg tablet Take 2 tablets by mouth every 4 hours as needed for pain. TRUE METRIX GLUCOSE TEST STRIP test strip CHECK FASTING BLOOD SUGAR DAILY FARXIGA 10 mg tablet Take 10 mg by mouth once daily. TRULICITY 0.75 mg/0.5 mL pen injector Inject 0.75 mg subcutaneously one time a week. ammonium lactate (LAC-HYDRIN) 12 % lotion Ammonium Lactate (Amlactin) 57 GM lotion Active 57 GM TP TWICE A DAY April 28, 2017 4:39pm clonazePAM (KLONOPIN) 0.5 mg tablet Take 1 tablet by mouth twice daily. lamoTRIgine (LAMICTAL) 25 mg tablet Take 1 tablet by mouth every morning. lamoTRIgine (LAMICTAL) 100 mg tablet Take 1 tablet by mouth twice daily. buPROPion (WELLBUTRIN) 75 mg tablet Take 75 mg by mouth twice daily. fluvoxaMINE (LUVOX) 100 mg tablet Take 1 tablet by mouth twice daily. hydrOXYzine pamoate (VISTARIL) 50 mg capsule Take 1 capsule by mouth twice daily. fluticasone (FLONASE) 50 mcg/actuation nasal spray Use 2 Sprays in each nostril once daily. QUEtiapine (SEROQUEL) 200 mg tablet Take 200 mg by mouth twice daily. Cholecalciferol, Vitamin D3, (VITAMIN D-3) 2,000 unit cap Take 1 capsule by mouth once daily. oxybutynin (DITROPAN) 5 mg tablet Take 5 mg by mouth two times a day. montelukast (SINGULAIR) 10 mg tablet Take 10 mg by mouth daily at bedtime. risperidone (RISPERDAL) 1 mg ORAL Tab Take 1 mg by mouth four times daily. No medication comments found. ALLERGIES Allergen Reactions Keflex [Cephalexin] Rash Objective PHYSICAL EXAM: General: alert and oriented and healthy appearance. Pertinent negatives noted - not distressed. Skin: normal color, no rash or lesions. HEENT: EOM intact and pupils equal round. Cardiovascular: regular rate and rhythm, normal S1 and S2, no rub, murmurs, or gallop. Respiratory: normal breath sounds, no wheezes or crackles. No chest wall deformity or tenderness. Abdomen: bowel sounds present and soft. Pertinent negatives noted - not tender. Extremities: no deformity, no edema or tenderness, no joint swelling or clubbing. Neurological: normal cognition and motor skills. Gait normal. No weakness or sensory deficit. PAIN ASSESSMENT: VITALS: BP 131/79 Pulse 86 Temp (Src) 97.4 (Temporal) Ht 6' 2 (1.88m) Wt 280 lb 6.8 oz (127.2kg) SpO2 97% BMI 35.99 kg/(m^2). Diagnostic tests reviewed for today's visit: Lab Value Units Date High Low HB 15.7 g/dL 03/09/2024 17.0 13.0 HCT 47.5 % 03/09/2024 51.0 39.0 WBC 4.66 k/uL 03/09/2024 11.00 3.70 PLT 207 k/uL 03/09/2024 400 150 NA 136 mmol/L 03/03/2024 144 136 K 3.0 mmol/L 03/03/2024 5.1 3.7 GLUC 89 mg/dL 03/03/2024 99 74 BUN 29 mg/dL 03/03/2024 24 9 CREAT 2.37 mg/dL 03/03/2024 1.22 0.73 PTSEC 11.1 sec 03/09/2024 13.0 9.7 INR 1.0 no uni* 03/09/2024 1.3 0.9 APTT 29.9 sec 03/09/2024 32.4 23.0 ALT 22 U/L 02/23/2024 54 10 AST 18 U/L 02/23/2024 40 14 TBILI 0.2 mg/dL 02/23/2024 1.3 0.2 TSH No results within date range. Lab Value Units Date High Low HCGQT No results within date range. UHCG No results within date range. HCG, BODY* No results within date range. Lab Value Units Date High Low ABORHD No results within date range. ABSCREEN No results within date range. Hemoglobin A1C (%) Date Value 11/14/2023 4.0 Recent Results (from the past 8760 hour(s)) ECG COMPLETE Collection Time: 11/14/23 1:29 PM Result Value Ventricular Rate 75 Atrial Rate 75 P-R Interval 146 QRS Duration 100 QT Interval 372 QTC Calculation (Bazett) 415 Calculated P [place] 15 Calculated R [place] 65 Calculated T [place] 46 Impression NORMAL SINUS RHYTHM NORMAL ECG Confirmed by CALEB LLANES MD ([id number]) on 12/07/2023 7:58:26 PM No results found for this or any previous visit (from the past 48075 hour(s)). Instructions Given to Patient: Instructions located in the after visit summary. Patient given verbal and written preop instructions and voices comprehension and compliance. SIGNATURE: Caleb Duenas MD PATIENT NAME: Dann Palacios DATE: March 09, 2024 TIME: 12:51 PM PAGER/CONTACT #: Attending Note I evaluated the patient and personally participated in the hazel components. I agree with the resident's findings and plan as documented and have discussed the case and management of the patient's care with the resident. Signature: Misty Mejia MD Date: 03/09/2024 Time: 3:08 PM documented in this encounter [facility] 03-05-2024 Miscellaneous Notes Patient has been identified by name and date of : Yes Requested Prescriptions Pending Prescriptions Disp Refills furosemide (LASIX) 20 mg tablet [Pharmacy Med Name: Furosemide 20MG TABS] 30 tablet 1 Sig: take 1 tablet by mouth daily RX INSTRUCTIONS: Patient aware RX will be sent to pharmacy. No need to notify patient. Shanta Cervantes LPN documented in this encounter [facility] 03-05-2024 Miscellaneous Notes Tiffanie notified and voices understanding. 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 Okay to start spironolactone 25 mg daily. Continue potassium 20 mill equivalents daily and okay to take Lasix 20 mg daily. Recheck BMP next week as scheduled. Hardik Wilkerson DO documented in this encounter [facility] 03-04-2024 Miscellaneous Notes Added on as directed. Monica Akhtar Tiffanie is aware of all information. PSS- please schedule patient for a BMP on the lab/port schedule 03/11/2024 @ 10:00. Tiffanie is aware. Chantell Nguyen LPN Potassium is low. Start liquid potassium again. New Rx sent to [place] if needed. Recheck BMP in a week. Hardik Wilkerson DO documented in this encounter [facility] 03-03-2024 History of Presen t illness Narrative Oncologic problem(s): 1) Stage IIIB seminoma. HPI: The patient is a 33 yo male with a PMH significant for HTN, CKD stage 3 (posterior urethral valves), obesity, diabetes and autism. Underwent evaluation for lower back pain. May 14, 2023 CT abdomen and pelvis: FINDINGS: The visualized lung bases are unremarkable. The visualized portions of the heart are within normal limits. Normal liver. Normal gallbladder and extrahepatic biliary system. Normal spleen. Normal pancreas. Normal bilateral adrenal glands. Irregular appearance of both kidneys. Findings are suggestive of multiple bilateral renal cysts. Correlation with ultrasound is recommended. There is a 3.7 mm nonobstructive calculus in the lower pole of the left kidney. There is a small hiatal hernia. Normal small intestine. Normal colon. The appendix is visualized and appears normal. Normal abdominal aorta. Normal inferior vena cava. There is retroperitoneal lymphadenopathy with enlarged nodes greater than 10-15mm in the short axis. Normal urinary bladder. Normal abdominal wall. Minimal anterior listhesis of L5 on S1 secondary to spondylolysis of the pars interarticularis of the L5 vertebrae. IMPRESSION: Diffuse enlargement of retroperitoneal lymphadenopathy. Lymphoma should be ruled out. Nonobstructive S in the lower pole calyx of the left kidney. Heterogeneous appearance of both kidneys suggestive of multiple bilateral renal cysts. 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 See comment. COMMENT The specimen is evaluated at the time of biopsy by Dr. Muñiz. Immediate Evaluation = Atypical lymphocytes present. The specimen is sent to [facility] for expert opinion and reviewed by Dr. Cat and above diagnosis is rendered. The complete report is viewable in patient s EMR. Flow cytometry studies from [facility] show no evidence of B-cell or T-cell lymphoma. The complete report is viewable in patients EM May 26, 2023 testicular ultrasound: FINDINGS: RIGHT TESTICLE: Right testicle is heterogeneous with what appear to be multiple masses replacing the normal parenchyma. Normal arterial flow present in the testicle with monophasic waveforms. The right testicle measures 5.9 x 4.3 x 3.4 cm. LEFT TESTICLE: Unremarkable. Normal in size and echotexture. No focal lesion. Normal arterial flow present in the testicle with monophasic waveforms. EPIDIDYMIDES: Small left epididymal cyst. Normal color Doppler flow pattern in the epididymis. SCROTUM: Small right hydrocele. No varicocele. Impression: 1. Heterogeneous right testicle with multiple masses. 2. Normal left testicle. 3. Small left epididymal cyst. June 03, 2023 CT chest: FINDINGS: LUNGS, PLEURA AND LARGE AIRWAYS: There is mild atelectasis in the lingula. Lungs appear otherwise clear. No pleural effusions are noted. No pleural effusion or thickening. No pneumothorax. THYROID: No thyroid lesions. HEART AND PERICARDIUM: Heart size is normal. There is a small pericardial effusion. CORONARY ARTERIES: Coronary artery calcification VESSELS: Thoracic aorta is not dilated. MEDIASTINUM AND SHYAM: No mediastinal or hilar adenopathy. Esophagus is unremarkable. No hiatal hernia. UPPER ABDOMEN: The kidneys appear lobular nature bilaterally possible underlying cysts difficult to evaluate without IV contrast. Extensive retroperitoneal lymphadenopathy is noted also seen on previous abdominal CT which may be related to history of testicular cancer. BONES: No suspicious lytic or blastic abnormality. Was to undergo orchidectomy at [facility], but aborted due to high BP. Here today with his adoptive mother and weight loss centre manager from the [employer]. He has no particular complaints. Denies testicular pain but having abdominal pain. When given prescription of Vicodin at the ER, it helped. He is out. He lives alone/independently but has 16 hr/day supervision. Answers questions appropriately. Enjoys art and in particular drawing cars. Previous therapy: 1) Carbo/etoposide x4 cylces. Right orchiectomy 11/21. Right orchiectomy path 11/21/2023: A. Right testicle, excision: - Scar consistent with regressed germ cell tumor. - Fibrosis of seminiferous tubules. Presents for ongoing oncologic management. Interim history: Underwent biopsy of vertebral lesion. Pathology consistent with tophaceous gout. This was reviewed with several radiologist who concurred has appearance of tophaceous gout. Denies abdominal pain. Appetite normal. Bowels have been moving on a regular basis. No trouble urinating. Has continued lower extremity swelling. Lasix helps alleviate the swelling but he developed significant hypokalemia. PAST MEDICAL HISTORY Diagnosis Date Depression with anxiety 11/14/2023 Diabetes mellitus (HCC) Essential hypertension Mild intermittent asthma without complication 11/14/2023 RONALD (obstructive sleep apnea) 11/14/2023 Other specified pervasive developmental disorders, current or active state PDD Renal failure, unspecified Stage 3b chronic kidney disease (HCC) 11/14/2023 Type 2 diabetes mellitus without complication, without long-term current use of insulin (HCC) 11/14/2023 Unspecified intellectual disabilities borderline IQ 79 ALLERGIES Allergen Reactions Keflex [Cephalexin] Rash Social History Tobacco Use Smoking status: Never Smokeless tobacco: Never Vaping Use Vaping Use: Never used Substance Use Topics Alcohol use: Never Drug use: Never Family History Adopted: Yes Problem Relation Age of Onset No Known Problems Mother PHYSICAL EXAM: Vitals: Blood pressure 124/86, pulse 89, temperature 36.2 C (97.2 F), temperature source Temporal, weight 127 kg (280 lb), SpO2 96%. Well-appearing and in no acute distress. EYES: Sclerae are anicteric bilaterally LYMPHATIC: There is no palpable cervical or supraclavicular adenopathy. RESPIRATORY: Inspiratory breath sounds are of normal intensity in all rios. No rales, wheezes or rhonchi. Expiratory phase is normal. CARDIOVASCULAR: Rhythm is regular. ABDOMEN: The abdomen is nondistended. No splenomegaly or hepatomegaly. No tenderness. Extremities: Mild symmetric swelling both legs that is stable. SKIN: No rash. 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 -Complicated by stage 3b CKD. -Status post right orchiectomy. -PET demonstrated significant residual disease in the retroperitoneum. -He is scheduled for surgery on March 17. -Chronic fluid retention/leg swelling since time of chemotherapy. -Reviewed the results of the biopsy. -Reviewed all lab work including CBC, chemistries and tumor markers. Beta HCG remains undetectable. Significant hypokalemia Plan: -Repeat BMP today. -Surgery as scheduled for 03/17. -I will discuss with his filter press operator management of the mild hyperuricemia as well as fluid retention. -Follow-up in about 2 months. Portions of this documentation were copied and pasted from previous office visit notes in order to provide a cohesive continuity of the history. The note has been reviewed and edited and updated as necessary. Hardik Wilkerson DO documented in this encounter [facility] 02-19-2024 Miscellaneous Notes Called Mrs. Palacios regarding change of DOS. No answer. Left vm for her and instructed her of new date and to let us know if this will not work for her, phone number provided. Maribel Preston biologist aide Nurse Department of Urology [facility] documented in this encounter [facility] 02-16-2024 History of Presen t illness Narrative Images from the original note were not included. [facility] [place] [place] Department of Hematology & Medical Oncology PATIENT NAME: Dann Palacios CLINIC NO: [id number] ATTENDING PHYSICIAN: Alexus Palacios MD DATE OF SERVICE: 02/16/2024 Dann Palacios is a 33 year old male with good risk metastatic testicular cancer of the right testis. He was diagnosed based on a retroperitoneal lymph node biopsy showing germ cell tumor consistent with seminoma. He had chronic kidney disease and other comorbidities and therefore was treated with 4 cycles of etoposide and carboplatinum rather than the standard regimen. Postchemotherapy scans show significant residual disease so I recommended an FDG PET scan which showed FDG avid retroperitoneal lymphadenopathy including a 2.4 cm right periaortic lymph node within a few V-max of 3.3, 1.6 cm right periaortic lymph node with an SUV max of 2.6 and a 3.3 cm centrally necrotic right periaortic lymph node with an SUV max of 4.3. In addition, there is an FDG avid lytic lesion involving the spinous process of the L3 vertebral body. I referred him to urology for a postchemotherapy resection of residual disease and he also underwent a biopsy of the bone lesion which showed no evidence of cancer. 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 Of note, his beta-hCG and AFP have been normal ever since he got chemotherapy. The beta-hCG had been elevated previously. Interval history: He is feeling well. He has recovered well from chemotherapy. He went bowling several days ago and has some soreness in his right arm subsequently. He is right arm dominant. Current Outpatient Medications Medication Sig furosemide (LASIX) 20 mg tablet Take 1 tablet by mouth once daily. acetaminophen (TYLENOL) 325 mg tablet Take 2 tablets by mouth every 4 hours as needed for pain. TRUE METRIX GLUCOSE TEST STRIP test strip CHECK FASTING BLOOD SUGAR DAILY FARXIGA 10 mg tablet Take 10 mg by mouth once daily. TRULICITY 0.75 mg/0.5 mL pen injector Inject 0.75 mg subcutaneously one time a week. ammonium lactate (LAC-HYDRIN) 12 % lotion Ammonium Lactate (Amlactin) 57 GM lotion Active 57 GM TP TWICE A DAY April 28, 2017 4:39pm clonazePAM (KLONOPIN) 0.5 mg tablet Take 1 tablet by mouth twice daily. lamoTRIgine (LAMICTAL) 25 mg tablet Take 1 tablet by mouth every morning. lamoTRIgine (LAMICTAL) 100 mg tablet Take 1 tablet by mouth twice daily. buPROPion (WELLBUTRIN) 75 mg tablet Take 75 mg by mouth twice daily. fluvoxaMINE (LUVOX) 100 mg tablet Take 1 tablet by mouth twice daily. hydrOXYzine pamoate (VISTARIL) 50 mg capsule Take 1 capsule by mouth twice daily. fluticasone (FLONASE) 50 mcg/actuation nasal spray Use 2 Sprays in each nostril once daily. QUEtiapine (SEROQUEL) 200 mg tablet Take 200 mg by mouth twice daily. Cholecalciferol, Vitamin D3, (VITAMIN D-3) 2,000 unit cap Take 1 capsule by mouth once daily. oxybutynin (DITROPAN) 5 mg tablet Take 5 mg by mouth two times a day. montelukast (SINGULAIR) 10 mg tablet Take 10 mg by mouth daily at bedtime. risperidone (RISPERDAL) 1 mg ORAL Tab Take 1 mg by mouth four times daily. No current facility-administered medications for this visit. BP 140/81 Pulse 104 Temp 36 C (96.8 F) Resp 20 Wt 132.2 kg (291 lb 7.2 oz) SpO2 97% BMI 37.42 kg/m GEN: Adult male in no acute distress accompanied by his parents. Bone biopsy from January 27, 2024 shows tophaceous gout and no evidence of cancer. There were radiologic findings were reviewed with radiology in view of these findings and the characteristics of the lesion were felt to be consistent with tophaceous gout on imaging as well. Labs: Latest Reference Range & Units 02/16/24 08:52 Sodium 136 - 144 mmol/L 140 Potassium 3.7 - 5.1 mmol/L 3.3 (L) Chloride 97 - 105 mmol/L 101 CO2 22 - 30 mmol/L 25 BUN 9 - 24 mg/dL 36 (H) Creatinine 0.73 - 1.22 mg/dL 2.44 (H) Glucose 74 - 99 mg/dL 84 Calcium 8.5 - 10.2 mg/dL 9.8 Anion Gap 9 - 18 mmol/L 14 eGFR >=60 mL/min/1.73m 35 (L) AFP <11.0 ng/mL <3.0 (L): Data is abnormally low (H): Data is abnormally high Serum AFP and BHCG are pending. ASSESSMENT/PLAN: 1. 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) - ICD9: 186.9, ICD10: C62.11 (primary diagnosis) Marker-negative after chemotherapy but with substantial residual masses, some of which are FDG-avid. I recommended a surgery to sample the residual masses since resection of all retroperitoneal disease would be very morbid for him. I have discussed this with Dr. Brown in urology. - ALPHA FETOPROTEIN BL - BETA HCG QUANT TUMOR MARKER - ALPHA FETOPROTEIN BL - BETA HCG QUANT TUMOR MARKER - BASIC METABOLIC PNL 2. 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 - ALPHA FETOPROTEIN BL - BETA HCG QUANT TUMOR MARKER - ALPHA FETOPROTEIN BL - BETA HCG QUANT TUMOR MARKER - BASIC METABOLIC PNL 3. Chronic gout of vertebrae, unspecified cause - ICD9: 274.02, ICD10: M1A.08X0 Will check uric acid level. - URIC ACID BLOOD 4. Stage 3b chronic kidney disease (HCC) - ICD9: 585.3, ICD10: N18.32 - eGFR: 35 Stable - I recommended that he follow up with kidney medicine because he's had issues with fluid retention after chemotherapy. - BASIC METABOLIC PNL Alexus Palacios MD Medical Decision Making: Problems: Low: Stable chronic illness Moderate: 1+ chronic illnesses with change Data: Unique test result(s) reviewed: 2 Unique test(s) ordered: 3+ Medical Decision Making Level: 4 - Moderate documented in this encounter [facility] 02-16-2024 Nurse Note Additional intake questions: Has the patient had fever, nausea, vomiting, diarrhea, constipation, fatigue for > 1 week? No Does the patient have a decreased appetite? No Does patient want to see a Assessment Coordinator? No (yes to any of above refer patient to schedulers for dietitian appointment) ) Does patient have any new or increased numbness or tingling of extremities? No Is patient interested in fertility information? No Does patient need any prescription refills? No Does patient have an advanced directive in place? No, Patient referred to Resource Center Electronically Signed By: Meaghan Jefferson RN documented in this encounter [facility] 02-10-2024 Miscellaneous Notes Detailed VM left. Dr. Palacios would like to see pt post-surgery to plan next steps after surgery. Advised father is not on contact list, cannot provide him information. Detailed VM left. Dr. Palacios would like to see pt post-surgery to plan next steps after surgery. Advised father is not on contact list, cannot provide him information. Dann Palacios Father is calling Alexus Palacios MD today regarding 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 He wants to know why he has these appointment on 02/15. Patient has been identified by name and birthdate. Duration of symptoms: N/A Requesting response back: [phone] (home) Laura Frankel February 10, 2024 documented in this encounter [facility] 02-09-2024 Miscellaneous Notes Appointment rescheduled Notified need for labs in 2 weeks, however pt is scheduled for labs 3 weeks from now. Will move lab apt up to 02/23/24 at 10AM. they are aware. PSS, Please move lab apt. Alysia Medellin LPN Left message for patient/housemaid to return call. When either calls, please relay Dr. Wilkerson's message below and schedule as directed. Caprice Donato No. I am happy that he is under the surveillance of filter press operator. But, repeat BMP in about 2 weeks to assess potassium. Hardik Wilkerson DO Spoke with Tiffanie Aguilar. Waste Duster informed ok to restart the Lasix. Pt. Does have filter press operator Dr. Valderrama whom he last had see 01/21/24 (notes in care everywhere).Does he need another appt. Soon? Shanta Cervantes LPN Okay to restart Lasix. Recommend referral to nephrology. Hardik Wilkerson DO Patients caregiver stating that for the past week Paul has had increased edema in his feet and ankles. He has 2-3 + pitting edema in bilateral feet and ankles, Denies pain in the area and states he is urinating without difficulty and drinking plenty of fluids. Caregiver states he was on lasix previously that you prescribed. He is seeing Dr Palacios on 02/16/24. documented in this encounter [facility] 02-05-2024 Miscellaneous Notes Scheduled as directed, Caprice Donato PSS- please schedule patient for a lab/port visit for a BMP tomorrow, 02/06/2024 @ 9:00. Patient has a standing order. Patient's caregiver is aware of appointment date and time. Chantell Nguyen LPN documented in this encounter [facility] 02-02-2024 Miscellaneous Notes Appointment scheduled Mother is aware of all information. I also called Tiffanie for scheduling purposes as requested by patient's mother. PSS- please schedule patient a lab/port appointment for URIC ACID 02/04/2024 @ 9:30. Tiffanie is aware of appointment date and time. Chantell Nguyen LPN Can let his mother know that the biopsy was negative for cancer which is great. It suggested a chronic form of gout which is a little unusual in the spinal column but can happen. I would like him to have a uric acid level to further work this up. Hardik Wilkerson DO documented in this encounter [facility] 01-27-2024 Surgical operatio n note BRIEF OPERATIVE / PROCEDURE NOTE LOG ID: [id number] SURGERY/PROCEDURE DATE: 01/27/2024 INCISION/PROCEDURE START TIME: 2:42 PM INCISION CLOSE/PROCEDURE END TIME: SURGEON(S)/PROCEDURALIST(S) AND LEAD MACHINIST(S): Surgeon(s) and Role: * Mai Way MD, MD - Primary * Zahra Valencia MD - Assisting No Additional Staff SURGERY/PROCEDURE(S): CT guided L3 vertebral body biopsy under moderate sedation ANESTHESIA: Procedural Sedation FINDINGS: see report ESTIMATED BLOOD LOSS: 0 ml SPECIMENS: 3x 16GA and 1x 11GA core COMPLICATIONS: None PRE-OP/PRE-PROCEDURE DIAGNOSIS: seminoma POST-OP/POST-PROCEDURE DIAGNOSIS: Same as Preop SIGNATURE: Zahra Valencia MD PATIENT NAME: Dann Palacios DATE: January 27, 2024 TIME: 3:02 PM documented in this encounter [facility] 01-27-2024 Miscellaneous Notes Patient Education: Procedure: Ct guided L3 vertebrae biopsy, procedure room safety and infection control, procedural Sedation PRN READINESS TO LEARN COGNITIVE ABILITY: Alert and oriented Education initiated pre-procedure MOTIVATION TO LEARN: Interested FAMILY SUPPORT: High - Very involved in pt care INSTRUCTION PROVIDED TO: Patient and Family member PATIENT LEARNS BEST BY: Multiple Methods FACTORS AFFECTING LEARNING: None PHYSICAL LIMITATIONS AFFECTING LEARNING: None LEARNING RESPONSE METHOD OF INSTRUCTION: Verbal instruction PATIENT / FAMILY RESPONSE: Information received as demonstrated by interest and questions FOLLOW-UP PLAN: Complete - No need for follow-up SUPPLEMENTAL MATERIAL: None REFERRAL (RECOMMENDATION): None documented in this encounter [facility] 01-27-2024 History of Presen t illness Narrative Radiology Service Progress Note PATIENT NAME: Dann Palacios DATE OF SERVICE: January 27, 2024 TIME: 2:41 PM PATIENT IDENTITY VERIFICATION COMPLETED USING TWO (2) IDENTIFIERS: Name and Date of confirmed by patient verbally and Name and Date of confirmed by identification band. FALL SCREENING: Has the patient had 2 falls in the last year or 1 fall with injury or currently using an Ambulatory Assistive Device (Walker, Cane, Wheelchair, Crutches, etc.)? Yes, Patient High Risk for Falls What interventions were put in place to prevent falls during this visit? Yellow Falls Risk Wristband Applied PATIENT GENDER DATA: Male PATIENT RELEVANT IMPLANT DATA REVIEWED: Yes PATIENT PRESENTS WITH AN IMPLANTABLE OR ATTACHED MANAGER LANGUAGE: No RADIOLOGY DEPARTMENT: Biopsy PERIPHERAL IV DATA: Not applicable SIGNED BY: BRUNILDA Cardenas RT(R) January 27, 2024 2:41 PM documented in this encounter [facility] 01-27-2024 History and physical note UPDATED PROCEDURAL SEDATION HISTORY AND PHYSICAL EXAMINATION SERVICE DATE: 01/27/2024 SERVICE TIME: 1345 PHYSICAL EXAM MUST BE COMPLETED ON ADMISSION PROCEDURE SCHEDULED: Procedure(s) with comments: BONE BIOPSY,TROCAR/NEEDLE SUPERFICIAL (N/A) - BONE BIOPSY-LABS not needed. RADIOLOGY ORDER PLACED: Radiology (1440h ago, onward) Start Ordered 01/07/24 0000 IMAGING GUIDED BIOPSY VERTEBRA OR FEMUR Routine 01/07/24 0819 The History and Physical (completed in the past 30 days) has been reviewed and the patient has been examined. The contents accurately reflect the patient's condition with the following additions or revisions since the H&P was completed. ASA Class: ASA Class:: Patient with mild systemic disease Examination indicates no changes. AIRWAY: Airway Visualization of Uvula: Yes Mouth opening greater than 2 fingerbreadths: Yes Neck Full Range of Motion: Yes LUNGS: Lungs clear to auscultation CARDIAC: Regular rhythm, Provisional Diagnosis/Treatment Plan: CT guided L3 spinous process biopsy SEDATION GOAL: Moderate This H&P can be found in the Electronic Medical Record dated 01/27/2024. SIGNATURE: Zahra Valencia MD PATIENT NAME: Dann Palacios DATE: January 27, 2024 TIME: 1:55 PM PAGER: Associated attestation - Mai Way MD, MD - 01/27/2024 2:04 PM EDT I discussed the patient with the trainee and agree with the findings and plan as documented in this note. 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 He was diagnosed base on a retroperitoneal lymph node biopsy showing germ cell tumor consistent with seminoma. Due to kis CKD and other co morbidities he was treated with 4 cycles of etoposide and carboplatin. Post-chemo scans showed significant residual disease. Patient in much better shape than he was last time, and is able to walk and stand normally. S/p right radical orchiectomy 11/21/2023 FINAL DIAGNOSIS A. Right testicle, excision: - Scar consistent with regressed germ cell tumor. - Fibrosis of seminiferous tubules. PET CT 12/15/2023 IMPRESSION: HEAD/NECK: * No FDG avid neoplastic process. CHEST: * No FDG avid neoplastic process. ABDOMEN/PELVIS: * FDG avid bulky retroperitoneal lymphadenopathy as detailed suspicious for metastatic disease. MUSCULOSKELETAL: * FDG avid lytic lesion involving the spinous processes of the L3 vertebral body, suspicious for metastasis. Interval history: Patient presenting for follow up. Scheduled for bone biopsy today. Here to discuss post chemo RPLND. Physical Exam (via video enabled technology) There were no vitals taken for this visit. General: Alert, no acute distress, oriented Lungs: No respiratory distress or pursed lip breathing Psych: Affect and mood normal : well healing inguinal incision with skin glue peeling off, no erythema or induration noted, no other abnormalities Abdomen: Estimated body mass index is 36.53 kg/m as calculated from the following: Height as of 11/14/23: 188 cm (6' 2). Weight as of 11/25/23: 129 kg (284 lb 8 oz). Soft, NT, ND Labs and Pathology: AFP 09/16/2023 Component Ref Range & Units 1 mo ago (09/16/23) 1 mo ago (08/25/23) 2 mo ago (08/01/23) 3 mo ago (07/14/23) 3 mo ago (07/03/23) AFP <11.0 ng/mL <3.0 3.3 CM 4.9 CM <3.0 CM <3.0 LD Lactate Dehydro 09/16/2023 Component Ref Range & Units 1 mo ago (09/16/23) 1 mo ago (08/25/23) 2 mo ago (08/01/23) 3 mo ago (07/14/23) 3 mo ago (07/03/23) LD 135 - 225 U/L 414 High 470 High 355 High 552 High 864 High BETA HCG Quant 09/16/2023 Component Ref Range & Units 1 mo ago (09/16/23) 1 mo ago (08/25/23) 2 mo ago (08/01/23) 3 mo ago (07/14/23) 3 mo ago (07/03/23) Beta hCG Quant Tumor Marker 0 - 3 IU/L <1 <1 CM 1 CM 187 High CM 103 High I personally reviewed all applicable laboratory and pathology data reviewed with patient Significant for testicular cancer 11/21/2023 SURGICAL PATHOLOGY A. Right testicle, excision: - Scar consistent with regressed germ cell tumor. - Fibrosis of seminiferous tubules. MISSAEL/jocy 11/26/2023 Imaging: CT abd/pel 10/13/2023 IMPRESSION: Stable interval exam. Stable bulky retroperitoneal complex adenopathy with partial calcification. I personally viewed all applicable imaging and interpreted them and went over the results with the patient. CT Chest WO CON 09/17/2023 IMPRESSION: Improved bulky retroperitoneal adenopathy in keeping with treatment response. Slightly worsened bilateral hydroureteronephrosis. Significant mass effect upon the inferior vena cava remains. Assessment and Plan: This is a 33 year old male with 1.Testicular cancer- metastatic germ cell tumor with seminoma diagnosed May 2023 with bulky RP disease who proceeded with etoposide/carboplatinum x4 cycles completed September 2023; residual bulky disease to 11cm in RP with mass effect on IVC, AFP and hCG undetectable last week. However PET scan shows PET positive masses in retroperitoneal and also in one of the vertebral bones. Getting a biopsy today of the bone. Plan: Will get a biopsy today and then discuss with whether to proceed with surgery, chemotherapy, or a combination of surgery and radiation potentially. RPLND would be a big surgery and would possibly require replacement of vessels and blood loss etc. Patient wants to get back to normal life, and has gotten stronger since I last saw him. However if disease is outside of the retroperitoneal for example in a bone, may need multimodal or systemic treatment. Caprice Nguyen APRN.ANESTHESIOLOGY PHYSICIAN By signing my name below, I, Van Peña, attest that this documentation has been prepared under the direction and in the presence of Dr.Christopher Tess Brown MD. Electronically Signed: fatuma Page, January 27, 2024 11:11 AM I agree with the Chief Complaint, ROS, and Past Histories independently gathered by the clinical child support investigator including scribe and or medical student and or BRAYDON and or resident or fellow and the remaining scribed note accurately describes my personal service to the patient. Antonio Brown MD, MS [facility] [place] [facility] documented in this encounter [facility] 01-23-2024 Nurse Note Pre- e instructions: Contacted patients father and animal ride manager confirmed appt. for biopsy scheduled on 01/27/24, at [facility]. Diet: Do not eat solid food after midnight the night before your procedure. You may have water until 11:00am Medications: IF ok with your Prescribing Provider: RADIOLOGY RECOMMENDS THESE MEDICATION RESTRICTIONS : None Medication pumps: Insulin pumps must be removed before entering the procedure room. Do you wear Neulasta Onpro? No If yes, the devise must be removed before entering the procedure room. Contrast Dye Prep: Do you have a contrast dye allergy? No Arrival: Please bring your Photo ID and Insurance Card. A general consent may need to be signed. Arrival at 12:30pm to desk [id number] ([facility]) and check in for your procedure. Machine Sander/Transportation: How will you be arriving for your procedure? Private car. If you will be arriving at [facility] via ambulance or public transportation, please call to discuss. You will need a responsible adult to accompany you to and from the procedure. Your laundry route driver is required to stay with you until you are taken into the Procedure room. Recovery expectations: You can expect to be at the hospital for the majority of the day. Please do not schedule any other appointments the day of your procedure. If you have any questions please call [phone] documented in this encounter [facility] 01-22-2024 Miscellaneous Notes Spoke to Tiffanie (housemaid) and scheduled biopsy for 01/26/24. I called and left a message on patient's housemaid's VM asking her to contact the office. I also spoke to the patient's mother, Mohini, and gave her the number to the biopsy e commerce retailer. Chantell Nguyen LPN Called pt to schedule and a message was left. 3rd attempt Called pt to schedule and a message was left. 2nd attempt Called pt to schedule and a message was left. 1st attempt RADIOLOGIST REQUEST / APPROVAL FORM STAFF RADIOLOGIST:Dr. Fraire PROCEDURE TO BE DONE UNDER: CT PROCEDURE REQUESTED: CORE Requested PROCEDURE: Approved TIME SLOT NEEDED: 1 Hour NOTES: L3 spinous process lesion; Hx of seminoma SPECIAL LABS/ PROCESSING: none Pre-procedure labs: CBC: not needed INR: not needed COVID: not needed SIR Bleeding risk category for this procedure: low risk. Reference from [employer]: [email or web address] STAFF SIGNATURE: Luis A Guerrero MD DATE: January 07, 2024 TIME: 4:52 PM BX. COORDINATOR INFORMATION LAB RESULTS: INR (no units) Date Value 11/14/2023 1.0 APTT (sec) Date Value 11/14/2023 30.1 Platelet Count Date Value 12/17/2023 188 k/uL 09/02/2007 220 K/uL Current Outpatient Medications Medication Sig acetaminophen (TYLENOL) 325 mg tablet Take 2 tablets by mouth every 4 hours as needed for pain. docusate sodium (COLACE) 100 mg capsule Take 1 capsule by mouth two times a day. (Patient not taking: Reported on 01/06/2024) benzonatate (TESSALON PERLES) 100 mg capsule Take 1 capsule by mouth three times a day as needed for cough. (Patient not taking: Reported on 11/14/2023) potassium chloride 20 mEq/15 mL solution Take 15 mL by mouth once daily. (Patient not taking: Reported on 11/14/2023) furosemide (LASIX) 20 mg tablet Take 1 tablet by mouth once daily. (Patient not taking: Reported on 11/25/2023) promethazine (PHENERGAN) 25 mg tablet Take 1 tablet by mouth every 6 hours as needed. FOR NAUSEA (Patient not taking: Reported on 11/14/2023) lidocaine-prilocaine (EMLA) 2.5-2.5 % cream Apply to affected area as needed. (Patient not taking: Reported on 11/14/2023) amLODIPine (NORVASC) 2.5 mg tablet Take 10 mg by mouth once daily. (Patient not taking: Reported on 01/06/2024) TRUE METRIX GLUCOSE TEST STRIP test strip CHECK FASTING BLOOD SUGAR DAILY FARXIGA 10 mg tablet Take 10 mg by mouth once daily. TRULICITY 0.75 mg/0.5 mL pen injector Inject 0.75 mg subcutaneously one time a week. ammonium lactate (LAC-HYDRIN) 12 % lotion Ammonium Lactate (Amlactin) 57 GM lotion Active 57 GM TP TWICE A DAY April 28, 2017 4:39pm clonazePAM (KLONOPIN) 0.5 mg tablet Take 1 tablet by mouth twice daily. lamoTRIgine (LAMICTAL) 25 mg tablet Take 1 tablet by mouth every morning. lamoTRIgine (LAMICTAL) 100 mg tablet Take 1 tablet by mouth twice daily. buPROPion (WELLBUTRIN) 75 mg tablet Take 75 mg by mouth twice daily. fluvoxaMINE (LUVOX) 100 mg tablet Take 1 tablet by mouth twice daily. hydrOXYzine pamoate (VISTARIL) 50 mg capsule Take 1 capsule by mouth twice daily. fluticasone (FLONASE) 50 mcg/actuation nasal spray Use 2 Sprays in each nostril once daily. QUEtiapine (SEROQUEL) 200 mg tablet Take 200 mg by mouth twice daily. Cholecalciferol, Vitamin D3, (VITAMIN D-3) 2,000 unit cap Take 1 capsule by mouth once daily. oxybutynin (DITROPAN) 5 mg tablet Take 5 mg by mouth twice daily. (Patient not taking: Reported on 11/14/2023) montelukast (SINGULAIR) 10 mg tablet Take 10 mg by mouth daily at bedtime. benzonatate (TESSALON PERLES) 100 mg capsule Take 2 capsules by mouth three times daily as needed. (Patient not taking: Reported on 11/14/2023) risperidone (RISPERDAL) 1 mg ORAL Tab Take 1 mg by mouth four times daily. No current facility-administered medications for this visit. ALLERGIES Allergen Reactions Keflex [Cephalexin] Rash FILMS SENT TO WORKSTATION: GUIDELINES FOR HOLDING ANTI-PLATELET AND ANTI- COAGULATION THERAPY: none on file NURSE SIGNATURE: Desiree Jordan LPN DATE: January 07, 2024 TIME: 2:02 PM RADIOLOGY CALL CENTER INTAKE UTILITIES MANAGER: Monica Black EXT: [phone] DATE: 01/07/2024 TIME: 9:45 TRACKING #. N/a REQUESTING PERSON: Monica Black PHONE/PAGER: [phone] REQUESTING STAFF: Dr. Hardik Wilkerson PHONE/PAGER: [phone] SPECIFICS OF THE REQUEST: (Please be as detailed as possible. If request is lymph node biopsy, specify LOCATION of the node if possible): Vertebra L3 spinous process (For example: biopsy liver mass or biopsy pelvic lymph node ) SPECIAL REQUESTS: TISSUE SAMPLE, LABWORK: N/A -Fine needle aspiration (FNA), core biopsy, no preference, unsure, specific processing request for pathology (For example: send for ER, [place], HER2/rina or possible lymphoma send in RPMI solution ) IS THIS REQUEST PART OF A RESEARCH PROTOCOL: No IF YES: List specifics of request and name/contact number of research coordinator and primary physician. 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 ALL OTHER CASES NEED IMAGING TO EVALUATE APPROPRIATENESS/FEASIBILITY OF THE REQUEST) IMAGING: [facility] (If the imaging was obtained outside the [facility] system, then it needs to be submitted for review prior to approval.) Note to all persons requesting biopsies: All biopsy requests will be scheduled as quickly as possible, based on the clinical urgency, availability of appointment times, the need to hold anti-thrombolytic therapy (aspirin, blood thinners) and the patient s schedule, including the need for an available laundry route driver. If a percutaneous biopsy or drainage is not felt to be safe or an alternative method for establishing a diagnosis is possible, this will be discussed directly with the requesting physician. documented in this encounter [facility] 01-07-2024 Telephone encounter Note Tiffanie informed. [facility] Work Phone: 01-07-2024 Miscellaneous Notes Tiffanie informed. 1ST ATTEMPT. Lvm for Tiffanie to call our office back. When she calls back make her aware that [facility] will be reaching out to schedule. I will send message to biopsy coordinator. Monica Akhtar Tiffanie, housemaid, notified. Voices understanding. Please reach out out to her to schedule. Alysia Medellin LPN Please let his housecalls nurse know that I was in communication with Dr. Palacios and the radiologist. We recommend biopsy of the abnormality of the spinous process of L3 observed on recent PET scan. I placed the order for this to be done at [facility]. The results of his biopsy will not delay his surgery. If it is positive for cancer then we are going to get an opinion about potential resection and/or radiation of that spot. Hardik Wilkerson DO documented in this encounter [facility] 01-07-2024 Telephone encounter Note 1ST ATTEMPT. Lvm for Tiffanie to call our office back. When she calls back make her aware that [facility] will be reaching out to schedule. I will send message to biopsy coordinator. Monica Akhtar [facility] 01-07-2024 Telephone encounter Note Tiffanie, housemaid, notified. Voices understanding. Please reach out out to her to schedule. Alysia Medellin LPN [facility] 01-07-2024 Telephone encounter Note Please let his housecalls nurse know that I was in communication with Dr. Palacios and the radiologist. We recommend biopsy of the abnormality of the spinous process of L3 observed on recent PET scan. I placed the order for this to be done at [facility]. The results of his biopsy will not delay his surgery. If it is positive for cancer then we are going to get an opinion about potential resection and/or radiation of that spot. Hardik Wilkerson DO [facility] 01-06-2024 History of Presen t illness Narrative Oncologic problem(s): 1) Stage IIIB seminoma. HPI: The patient is a 33 yo male with a PMH significant for HTN, CKD stage 3 (posterior urethral valves), obesity, diabetes and autism. Underwent evaluation for lower back pain. May 14, 2023 CT abdomen and pelvis: FINDINGS: The visualized lung bases are unremarkable. The visualized portions of the heart are within normal limits. Normal liver. Normal gallbladder and extrahepatic biliary system. Normal spleen. Normal pancreas. Normal bilateral adrenal glands. Irregular appearance of both kidneys. Findings are suggestive of multiple bilateral renal cysts. Correlation with ultrasound is recommended. There is a 3.7 mm nonobstructive calculus in the lower pole of the left kidney. There is a small hiatal hernia. Normal small intestine. Normal colon. The appendix is visualized and appears normal. Normal abdominal aorta. Normal inferior vena cava. There is retroperitoneal lymphadenopathy with enlarged nodes greater than 10-15mm in the short axis. Normal urinary bladder. Normal abdominal wall. Minimal anterior listhesis of L5 on S1 secondary to spondylolysis of the pars interarticularis of the L5 vertebrae. IMPRESSION: Diffuse enlargement of retroperitoneal lymphadenopathy. Lymphoma should be ruled out. Nonobstructive S in the lower pole calyx of the left kidney. Heterogeneous appearance of both kidneys suggestive of multiple bilateral renal cysts. 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 See comment. COMMENT The specimen is evaluated at the time of biopsy by Dr. Muñiz. Immediate Evaluation = Atypical lymphocytes present. The specimen is sent to [facility] for expert opinion and reviewed by Dr. Cat and above diagnosis is rendered. The complete report is viewable in patient s EMR. Flow cytometry studies from [facility] show no evidence of B-cell or T-cell lymphoma. The complete report is viewable in patients EM May 26, 2023 testicular ultrasound: FINDINGS: RIGHT TESTICLE: Right testicle is heterogeneous with what appear to be multiple masses replacing the normal parenchyma. Normal arterial flow present in the testicle with monophasic waveforms. The right testicle measures 5.9 x 4.3 x 3.4 cm. LEFT TESTICLE: Unremarkable. Normal in size and echotexture. No focal lesion. Normal arterial flow present in the testicle with monophasic waveforms. EPIDIDYMIDES: Small left epididymal cyst. Normal color Doppler flow pattern in the epididymis. SCROTUM: Small right hydrocele. No varicocele. Impression: 1. Heterogeneous right testicle with multiple masses. 2. Normal left testicle. 3. Small left epididymal cyst. June 03, 2023 CT chest: FINDINGS: LUNGS, PLEURA AND LARGE AIRWAYS: There is mild atelectasis in the lingula. Lungs appear otherwise clear. No pleural effusions are noted. No pleural effusion or thickening. No pneumothorax. THYROID: No thyroid lesions. HEART AND PERICARDIUM: Heart size is normal. There is a small pericardial effusion. CORONARY ARTERIES: Coronary artery calcification VESSELS: Thoracic aorta is not dilated. MEDIASTINUM AND SHYAM: No mediastinal or hilar adenopathy. Esophagus is unremarkable. No hiatal hernia. UPPER ABDOMEN: The kidneys appear lobular nature bilaterally possible underlying cysts difficult to evaluate without IV contrast. Extensive retroperitoneal lymphadenopathy is noted also seen on previous abdominal CT which may be related to history of testicular cancer. BONES: No suspicious lytic or blastic abnormality. Was to undergo orchidectomy at [facility], but aborted due to high BP. Here today with his adoptive mother and weight loss centre manager from the [employer]. He has no particular complaints. Denies testicular pain but having abdominal pain. When given prescription of Vicodin at the ER, it helped. He is out. He lives alone/independently but has 16 hr/day supervision. Answers questions appropriately. Enjoys art and in particular drawing cars. Previous therapy: 1) Carbo/etoposide x4 cylces. Right orchiectomy 11/21. Right orchiectomy path 11/21/2023: A. Right testicle, excision: - Scar consistent with regressed germ cell tumor. - Fibrosis of seminiferous tubules. Presents for ongoing oncologic management. Interim history: PAST MEDICAL HISTORY Diagnosis Date Depression with anxiety 11/14/2023 Diabetes mellitus (HCC) Essential hypertension Mild intermittent asthma without complication 11/14/2023 RONALD (obstructive sleep apnea) 11/14/2023 Other specified pervasive developmental disorders, current or active state PDD Renal failure, unspecified Stage 3b chronic kidney disease (HCC) 11/14/2023 Type 2 diabetes mellitus without complication, without long-term current use of insulin (HCC) 11/14/2023 Unspecified intellectual disabilities borderline IQ 79 ALLERGIES Allergen Reactions Keflex [Cephalexin] Rash Social History Tobacco Use Smoking status: Never Smokeless tobacco: Never Vaping Use Vaping Use: Never used Substance Use Topics Alcohol use: Never Drug use: Never Family History Adopted: Yes Problem Relation Age of Onset No Known Problems Mother PHYSICAL EXAM: Vitals: Blood pressure 150/84, pulse 94, temperature 36.2 C (97.1 F), weight 133.8 kg (295 lb), SpO2 99%. Well-appearing and in no acute distress. EYES: Sclerae are anicteric bilaterally LYMPHATIC: There is no palpable cervical or supraclavicular adenopathy. RESPIRATORY: Inspiratory breath sounds are of normal intensity in all rios. No rales, wheezes or rhonchi. Expiratory phase is normal. CARDIOVASCULAR: Rhythm is regular. ABDOMEN: The abdomen is nondistended. No splenomegaly or hepatomegaly. No tenderness. Incision right groin healing very nicely without any evidence of infection. Extremities: Mild symmetric swelling both legs that is stable. SKIN: No rash. 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 -Complicated by stage 3b CKD. -Previously discussed therapy with Dr. Palacios--we we favored chemotherapy upfront then orchidectomy. Avoided busulfan due to compromised renal function and increased risk of pulmonary fibrosis. According to guidelines, etoposide dose reduced to 75%. Dosing carboplatin based on AUC. -Status post right orchiectomy. -Beta HCG now undetectable. -Reviewed pet images with him and his caregiver. Have to clarify the L3 spinous process lesion. Personally reviewed CTs dating to April 2023 where there appears to be a lytic lesion in that area. Plan: -Clarify PET scan findings. -Keep appointment with Dr. Brown. Portions of this documentation were copied and pasted from previous office visit notes in order to provide a cohesive continuity of the history. The note has been reviewed and edited and updated as necessary. I spent a total of 20 minutes on the date of the service which included preparing to see the patient, [id number] patient care, completing clinical documentation, obtaining and/or reviewing separately obtained history, performing a medically appropriate examination, counseling and educating the patient/family/caregiver, ordering medications, tests, or procedures, communicating with other HCPs (not separately reported), and communicating results to the patient/family/caregiver. Hardik Wilkerson DO documented in this encounter [facility] 12-15-2023 Note HNO ID: [id number] Author: RITA CHAN RT(R) Service: Nuclear Medicine Author Type: Technologist Type: Progress Notes Filed: 12/15/2023 07:30 Note Text: RADIOLOGY SERVICE PROGRESS NOTE SERVICE DATE: 12/15/2023 SERVICE TIME: 7:24 AM PATIENT IDENTITY VERIFICATION COMPLETED USING TWO (2) STANDARD IDENTIFIERS: Name and Date of confirmed by patient verbally FALL SCREENING: Has the patient had 2 falls in the last year or 1 fall with injury or currently using an Ambulatory Assistive Device (Walker, Cane, Wheelchair, Crutches, etc.)? No PATIENT GENDER DATA: .male ALLERGIES: na MEDICATIONS REVIEWED: Not applicable PATIENT RELEVANT IMPLANT DATA REVIEWED: Not Applicable PATIENT PRESENTS WITH AN IMPLANTABLE OR ATTACHED MANAGER LANGUAGE: No CREATININE: Creatinine Date Value Ref Range Status 11/25/2023 2.88 (H) 0.73 - 1.22 mg/dL Final 11/20/2023 2.88 (H) 0.73 - 1.22 mg/dL Final 11/14/2023 2.56 (H) 0.73 - 1.22 mg/dL Final Estimated Glomerular Filtration Rate Date Value Ref Range Status 11/25/2023 29 (L) >=60 mL/min/1.73m? Final Comment: Estimated Glomerular Filtration Rate (eGFR) is calculated using the 2020 CKD-EPI creatinine equation. This equation utilizes serum creatinine, sex, and age as parameters. The creatinine assay has traceable calibration to isotope dilution-mass spectrometry. Refer to KDIGO guidelines for clinical interpretation. In patients with unstable renal function, e.g. those with acute kidney injury, the eGFR may not accurately reflect actual GFR. eGFR- Date Value Ref Range Status 01/02/2022 45 Final P.O.C.T. RESULTS: N/A December 15, [address] PERFORMED: No IV SITE: Ambulatory: NM only - direct IV injection in the Right antecubital site POST EXAM PIV STATUS: Discontinued PROCEDURE TYPE: NM INJECT: PET/CT BODY SCAN. 19.8 mCi F18 FDG. No other medications given.. ADMINISTRATION TIME: 0720 PATIENT DISCHARGED TO: Ambulatory patient, left NM department area. A Diagnostic radioactive procedure has taken place, with no further precautions necessary other than routine body substance precautions. More information regarding radiation safety can be found using this link: [email or web address] SIGNATURE: RT Joanie(R) PATIENT NAME: Dann Palacios DATE: December 15, 2023 TIME: 7:24 AM PAGER/CONTACT #: 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 Labs: NA Clinical Notes Reviewed: 10/17/2023 [facility] Date of last: He has completed 4 cycles of etoposide and carboplatinum and had restaging scans that show significant residual disease measuring up to 11 cm in the retroperitoneum Additional Information: Stage 3b chronic kidney disease Radiologist Reviewed: N/A Initial/Subsequent: Subsequent Treatment Strategy: 0063 PET Protocol: Top Of Ear To Proximal Thigh Diagnostic Imaging Requested: No Is this a Pretreatment and/or an initial Pet scan: No - Schedule as requested Comments for Piano Assembler: Schedule on 12/12/2023 ROUTE TO SCHEDULERS POOL P PET ROTARY VENEER MACHINE OPERATOR or P [facility] SPECIAL [facility] This form is used for MAIN CAMPUS APPOINTMENTS ONLY. Is this request for a Main [place] PET scan appointment? Yes: Double End Tenoner Operator: Chas Snyder RN Requesting Person (Last Name, First Name): Chas Snyder RN Area Code + Phone/Pager: [phone] Who do we call to schedule this appointment? Patient Requesting Staff Dr. Palacios Area Code + Phone/Pager: N/A PET Orders (A delay in scheduling will result if the orders are not present at time of review): Internal ADDITIONAL ACTION MAY BE REQUIRED IF PATIENTS OON INSURANCE OR SELF PAY COVERAGE HAS NOT BEEN CLEARED FOR REQUESTED APPOINTMENT. Scheduling: ~12/12/2023 What account will this PET appointment be linked to? P/F Type of PET: Oncology: Are there additional diagnostic CT scans required to be done at time of PET scan? No Is the request for a PET MR ? No What account will diagnostic testing appointment be linked to? P/F Will the patient need anesthesia? NO Send requests to [facility] documented in this encounter [facility] 10-21-2023 History of Presen t illness Narrative PATIENT: Dann Palacios [id number] REFERRING MD: Hardik Wilkerson 10/21/[address] BROWN Chief Complaint Testicular cancer Referral Consultation requested by Dr. Wilkerson for an opinion regarding testicular cancer. My final recommendations will be communicated back to the requesting physician by way of shared Medical record or letter to requesting physician via US mail. History of Present Illness Dann Palacios is a very pleasant 33 year old male with PMHx significant for PUV s/p ablation by Dr. Trinidad 01/12/2003 with CKD who presents with a history of testicular cancer. Copied from encounter with Dr. Barriga on 06/27/23 32-year-old male with Past medical history notable for autism, hypertension, morbid obesity, prediabetes, and stage III chronic kidney disease since teens on conservative management. 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 05/28/23 STM AFP <1.8 HCG 120 LDH 397 May 14, 2023 CT abdomen and pelvis: FINDINGS: The visualized lung bases are unremarkable. The visualized portions of the heart are within normal limits. Normal liver. Normal gallbladder and extrahepatic biliary system. Normal spleen. Normal pancreas. Normal bilateral adrenal glands. Irregular appearance of both kidneys. Findings are suggestive of multiple bilateral renal cysts. Correlation with ultrasound is recommended. There is a 3.7 mm nonobstructive calculus in the lower pole of the left kidney. There is a small hiatal hernia. Normal small intestine. Normal colon. The appendix is visualized and appears normal. Normal abdominal aorta. Normal inferior vena cava. There is retroperitoneal lymphadenopathy with enlarged nodes greater than 10-15mm in the short axis. Normal urinary bladder. Normal abdominal wall. Minimal anterior listhesis of L5 on S1 secondary to spondylolysis of the pars interarticularis of the L5 vertebrae. IMPRESSION: Diffuse enlargement of retroperitoneal lymphadenopathy. Lymphoma should be ruled out. Nonobstructive S in the lower pole calyx of the left kidney. Heterogeneous appearance of both kidneys suggestive of multiple bilateral renal cysts. May 26, 2023 testicular ultrasound: FINDINGS: RIGHT TESTICLE: Right testicle is heterogeneous with what appear to be multiple masses replacing the normal parenchyma. Normal arterial flow present in the testicle with monophasic waveforms. The right testicle measures 5.9 x 4.3 x 3.4 cm. LEFT TESTICLE: Unremarkable. Normal in size and echotexture. No focal lesion. Normal arterial flow present in the testicle with monophasic waveforms. EPIDIDYMIDES: Small left epididymal cyst. Normal color Doppler flow pattern in the epididymis. SCROTUM: Small right hydrocele. No varicocele. IMPRESSION: 1. Heterogeneous right testicle with multiple masses. 2. Normal left testicle. 3. Small left epididymal cyst. June 03, 2023 CT chest: FINDINGS: LUNGS, PLEURA AND LARGE AIRWAYS: There is mild atelectasis in the lingula. Lungs appear otherwise clear. No pleural effusions are noted. No pleural effusion or thickening. No pneumothorax. THYROID: No thyroid lesions. HEART AND PERICARDIUM: Heart size is normal. There is a small pericardial effusion. CORONARY ARTERIES: Coronary artery calcification VESSELS: Thoracic aorta is not dilated. MEDIASTINUM AND SHYAM: No mediastinal or hilar adenopathy. Esophagus is unremarkable. No hiatal hernia. UPPER ABDOMEN: The kidneys appear lobular nature bilaterally possible underlying cysts difficult to evaluate without IV contrast. Extensive retroperitoneal lymphadenopathy is noted also seen on previous abdominal CT which may be related to history of testicular cancer. BONES: No suspicious lytic or blastic abnormality. Interval Events: Patient now s/p 4 cycles of etoposide and carboplatinum completed 09/30 and had restaging scans that show residual disease with poorly defined margins, up to 11.8cm with persistent mass effect upon the IVC. Serum Tumor Markers 09/16/23 AFP <3 HCG <1 LDH 414 Tumor markers resolved with partial LDH elevation. Has had reduced exertional capacity since chemo. Presents in wheelchair due to difficulty walking longer distances. Per Dr. Person note, planned for possible orchiectomy and PET scan vs RPLND. No prior abd surgeries. No AC. Patient denies dysuria and gross hematuria. Patient denies fever, chills, rigors, nausea, vomiting and malaise. Patient denies abdominal and flank pain. 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 Medications Current Outpatient Medications Medication Instructions amLODIPine (NORVASC) 2.5 mg tablet 1 tablet, ORAL, DAILY ammonium lactate (LAC-HYDRIN) 12 % lotion Ammonium Lactate (Amlactin) 57 GM lotion Active 57 GM TP TWICE A DAY April 28, 2017 4:39pm benzonatate (TESSALON PERLES) 200 mg, ORAL, 3 TIMES DAILY NEEDED buPROPion (WELLBUTRIN) 75 mg, ORAL, 2 TIMES DAILY Cholecalciferol, Vitamin D3, (VITAMIN D-3) 2,000 unit cap 1 capsule, ORAL, DAILY clonazePAM (KLONOPIN) 0.5 mg tablet 1 tablet, ORAL, 2 TIMES DAILY FARXIGA 10 mg, ORAL, DAILY fluticasone (FLONASE) 50 mcg/actuation nasal spray 2 Sprays, EACH NOSTRIL, DAILY fluvoxaMINE (LUVOX) 100 mg tablet 1 tablet, ORAL, 2 TIMES DAILY furosemide (LASIX) 20 mg, ORAL, DAILY hydrOXYzine pamoate (VISTARIL) 50 mg capsule 1 capsule, ORAL, 2 TIMES DAILY lamoTRIgine (LAMICTAL) 100 mg tablet 1 tablet, ORAL, 2 TIMES DAILY lamoTRIgine (LAMICTAL) 25 mg tablet 1 tablet, ORAL, EVERY MORNING lidocaine-prilocaine (EMLA) 2.5-2.5 % cream TOPICAL, NEEDED montelukast (SINGULAIR) 10 mg, ORAL, AT BEDTIME ondansetron (ZOFRAN) 8 mg, ORAL, EVERY 8 HOURS NEEDED ondansetron orally disintegrating (ZOFRAN ODT) 4 mg, ORAL, EVERY 8 HOURS NEEDED oxybutynin (DITROPAN) 5 mg, ORAL, 2 TIMES DAILY potassium chloride 20 mEq/15 mL solution 20 mEq, ORAL, DAILY promethazine (PHENERGAN) 25 mg, ORAL, EVERY 6 HOURS NEEDED, FOR NAUSEA QUEtiapine (SEROQUEL) 200 mg, ORAL, 2 TIMES DAILY RisperDAL 1 mg, ORAL, 4 TIMES DAILY TRUE METRIX GLUCOSE TEST STRIP test strip CHECK FASTING BLOOD SUGAR DAILY TRULICITY 0.75 mg, SUBCUTANEOUS, 1 TIME WEEKLY Family History FAMILY HISTORY Adopted: Yes Problem Relation Age of Onset No Known Problems Mother Social History Social History Tobacco Use Smoking status: Never Smokeless tobacco: Never Vaping Use Vaping Use: Never used Substance Use Topics Alcohol use: Never Drug use: Never Allergies Allergies: Keflex [Cephalexin] Rash Physical Exam There were no vitals taken for this visit. General: Alert, no acute distress, oriented Lungs: No respiratory distress or pursed lip breathing Psych: Affect and mood normal Abdomen: soft, nondistended, nontender, no abdominal scars Estimated body mass index is 39.57 kg/m as calculated from the following: Height as of 07/08/23: 181 cm (5' 11.26). Weight as of 10/17/23: 129.6 kg (285 lb 12.8 oz). Labs and Pathology AFP 09/16/2023 Component Ref Range & Units 1 mo ago (09/16/23) 1 mo ago (08/25/23) 2 mo ago (08/01/23) 3 mo ago (07/14/23) 3 mo ago (07/03/23) AFP <11.0 ng/mL <3.0 3.3 CM 4.9 CM <3.0 CM <3.0 LD Lactate Dehydro 09/16/2023 Component Ref Range & Units 1 mo ago (09/16/23) 1 mo ago (08/25/23) 2 mo ago (08/01/23) 3 mo ago (07/14/23) 3 mo ago (07/03/23) LD 135 - 225 U/L 414 High 470 High 355 High 552 High 864 High BETA HCG Quant 09/16/2023 Component Ref Range & Units 1 mo ago (09/16/23) 1 mo ago (08/25/23) 2 mo ago (08/01/23) 3 mo ago (07/14/23) 3 mo ago (07/03/23) Beta hCG Quant Tumor Marker 0 - 3 IU/L <1 <1 CM 1 CM 187 High CM 103 High I personally reviewed all applicable laboratory and pathology data reviewed with patient Significant for testicular cancer Imaging: CT abd/pel 10/13/2023 IMPRESSION: Stable interval exam. Stable bulky retroperitoneal complex adenopathy with partial calcification. I personally viewed all applicable imaging and interpreted them and went over the results with the patient. Assessment: 1.Testicular cancer- metastatic germ cell tumor with seminoma diagnosed May 2023 with bulky RP disease who proceeded with etoposide/carboplatinum x4 cycles completed September 2023; residual bulky disease to 11cm in RP with mass effect on IVC 2. CKD III in setting of PUV managed with PUV ablation [address] Trinidad Plan: Proceed with RIGHT radical inguinal orchiectomy and PET scan as scheduled on 12/15/22 (first of November) Follow with nephrology Scribed for Dr. Antonio Brown by vero Leach scribe on 10/21/2023 I agree with the Chief Complaint, ROS, and Past Histories independently gathered by the clinical child support investigator including scribe and or medical student and or BRAYDON and or resident or fellow and the remaining scribed note accurately describes my personal service to the patient. Antonio Brown MD, MS [facility] [place] [facility] documented in this encounter [facility] 10-17-2023 History of Presen t illness Narrative Images from the original note were not included. [facility] [place], [place] Department of Hematology & Medical Oncology PATIENT NAME: Dann Palacios [facility] NO: [id number] ATTENDING PHYSICIAN: Alexus Palacios MD DATE OF SERVICE: 10/17/2023 Dann Palacios is a 33 year old male with metastatic testicular germ cell tumor of the right testis. He has not had an orchiectomy but instead had a retroperitoneal lymph node biopsy that showed germ cell tumor consistent with seminoma. He is chronic kidney disease and given that and his other comorbidities, we decided that he would be better off being treated with etoposide and carboplatinum. There is a high risk that cisplatin would make him dependent on hemodialysis and the patient and his family and I did not think that was in his best interest. He has completed 4 cycles of etoposide and carboplatinum and had restaging scans that show significant residual disease measuring up to 11 cm in the retroperitoneum. He has not yet had an orchiectomy. He is scheduled to see Dr. Brown in urology next week to discuss orchiectomy. His serum tumor markers normalized with chemotherapy. His alpha-fetoprotein was never elevated but his beta-hCG was. Data: CT abd/pelvis 10/13/2023: Bulky retroperitoneal adenopathy with poorly defined margins measuring up to 11.8 cm. There is also discrete lesion near the aortic bifurcation that is stable measuring 4.0 x 3.0 cm. This is an improvement from his scans in June 2023 which showed a retroperitoneal mass measuring 9.4 x 16 cm and which shrunk to 4.0 x 10.8 cm in July. Chest CT from 2022 did not show metastatic disease. Latest Reference Range & Units 09/16/23 11:13 AFP <11.0 ng/mL <3.0 Beta hCG Quant Tumor Marker 0 - 3 IU/L <1 The ambiguity in this case is whether he has a pure seminoma or mixed germ cell tumor. Normally we would recommend a retroperitoneal lymph node dissection after chemotherapy but I am concerned that such an operation in his case given the appearance of the disease would be complicated and risky. My recommendation is to proceed with orchiectomy and to get up PET CT scan at the end of November. If the PET scan is negative, it would be reasonable to observe him. The risk is that if he has teratoma, that would not be expected to light up on PET and could grow in the future. However the likelihood of that is relatively low. If Dr. Valdez thinks a retroperitoneal lymph node dissection could be done safely, then we may cancel the PET scan and do that instead but that is not my recommendation at this time. ASSESSMENT/PLAN: 1. 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 - BASIC METABOLIC PNL - ALPHA FETOPROTEIN BL - BETA HCG QUANT TUMOR MARKER - CBC + DIFF - NM PET/CT SKULL-THIGH SUBSEQUENT 2. 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 See above. - BASIC METABOLIC PNL - ALPHA FETOPROTEIN BL - BETA HCG QUANT TUMOR MARKER - CBC + DIFF - NM PET/CT SKULL-THIGH SUBSEQUENT 3. Seminoma of descended right testis (HCC) - ICD9: 186.9, ICD10: C62.11 See above - BASIC METABOLIC PNL - ALPHA FETOPROTEIN BL - BETA HCG QUANT TUMOR MARKER - CBC + DIFF - NM PET/CT SKULL-THIGH SUBSEQUENT 4. Stage 3b chronic kidney disease (HCC) - ICD9: 585.3, ICD10: N18.32 - eGFR: 34 Stable - Follow up with kidney medicine Alexus Palacios M.D. [facility] Department of Hematology and Medical Oncology [facility] [phone] Medical Decision Making: Problems: Low: Stable chronic illness Moderate: 1+ chronic illnesses with change Data: Unique test result(s) reviewed: 3+ Unique test(s) ordered: 3+ Medical Decision Making Level: 4 - Moderate documented in this encounter [facility] 10-17-2023 Nurse Note Additional intake questions: Has the patient had fever, nausea, vomiting, diarrhea, constipation, fatigue for > 1 week? Yes, fatigue Does the patient have a decreased appetite? No Does patient want to see a Assessment Coordinator? No (yes to any of above refer patient to schedulers for dietitian appointment) ) Does patient have any new or increased numbness or tingling of extremities? No Is patient interested in fertility information? No Does patient need any prescription refills? No Does patient have an advanced directive in place? No, Patient referred to Resource Center Electronically Signed By: Meaghan Jefferson RN documented in this encounter [facility] 10-15-2023 Miscellaneous Notes Tiffanie notified to hold both the lasix and the potassium. Chantell Nguyen LPN Yes. Hardik Wilkerson DO Next lab/OV is scheduled 11/25/2023. Tiffanie is asking if they are to hold the potassium as well? Chantell Nguyen LPN Recommend holding Lasix for the time being since creatinine was elevated more so at last check. Hardik Wilkerson DO documented in this encounter [facility] 10-13-2023 History of Presen t illness Narrative Patient is here for IVAD port flush/blood draw. IVAD is located in right upper chest. Site cleansed with Chloraprep IVAD accessed with a #20 gauge 3/4 non-coring Gripper needle Flush with 5cc's Normal Saline. Blood Return: Good. 10 cc's blood aspirated and discarded. Blood drawn for CBC and BMP. Flushed with: 20 ml Normal Saline and 5 ml Heparin Lock Flush. Non-coring needle removed. Paper tape applied to puncture site. Site negative for redness, edema or tenderness. Patient tolerated procedure well. Maribel Napoles RN documented in this encounter [facility] 10-02-2023 History of Past i llness Narrative Problem Noted Date Diagnosed Date Resolved Date Platelets decreased 10/02/2023 11/25/19 24 Renal failure, unspecified 11/25/2002 0 05/27/2006 Urinary tract infection, site not specified 11/24/2002 08/21/2016 documented as of this encounter (statuses as of 01/06/2024) [facility] History of Past illness Narrative* Problem Noted Date Diagnosed Date Resolved Date Platelets decreased 10/02/2023 11/25/19 24 Renal failure, unspecified 11/25/2002 0 05/27/2006 Urinary tract infection, site not specified 11/24/2002 08/21/2016 documented as of this encounter (statuses as of 01/22/2024) [facility] History of Past illness Narrative* Problem Noted Date Diagnosed Date Resolved Date Platelets decreased 10/02/2023 11/25/19 24 Renal failure, unspecified 11/25/2002 0 05/27/2006 Urinary tract infection, site not specified 11/24/2002 08/21/2016 documented as of this encounter (statuses as of 01/28/2024) [address] History of Past illness Narrative* Problem Noted Date Diagnosed Date Resolved Date Platelets decreased 10/02/2023 11/25/19 24 Renal failure, unspecified 11/25/2002 0 05/27/2006 Urinary tract infection, site not specified 11/24/2002 08/21/2016 documented as of this encounter (statuses as of 01/28/2024) [address] History of Past illness Narrative* Problem Noted Date Diagnosed Date Resolved Date Platelets decreased 10/02/2023 11/25/19 24 Renal failure, unspecified 11/25/2002 0 05/27/2006 Urinary tract infection, site not specified 11/24/2002 08/21/2016 documented as of this encounter (statuses as of 01/30/2024) [address]23 History of Past illness Narrative* Problem Noted Date Diagnosed Date Resolved Date Platelets decreased 10/02/2023 11/25/19 24 Renal failure, unspecified 11/25/2002 0 05/27/2006 Urinary tract infection, site not specified 11/24/2002 08/21/2016 documented as of this encounter (statuses as of 02/02/2024) [address]16-2023 History of Past illness Narrative* Problem Noted Date Diagnosed Date Resolved Date Platelets decreased 10/02/2023 11/25/19 24 Renal failure, unspecified 11/25/2002 0 05/27/2006 Urinary tract infection, site not specified 11/24/2002 08/21/2016 documented as of this encounter (statuses as of 02/04/2024) [address] History of Past illness Narrative* Problem Noted Date Diagnosed Date Resolved Date Platelets decreased 10/02/2023 11/25/19 24 Renal failure, unspecified 11/25/2002 0 05/27/2006 Urinary tract infection, site not specified 11/24/2002 08/21/2016 documented as of this encounter (statuses as of 02/06/2024) [address] History of Past illness Narrative* Problem Noted Date Diagnosed Date Resolved Date Platelets decreased 10/02/2023 11/25/19 24 Renal failure, unspecified 11/25/2002 0 05/27/2006 Urinary tract infection, site not specified 11/24/2002 08/21/2016 documented as of this encounter (statuses as of 02/06/2024) [address] History of Past illness Narrative* Problem Noted Date Diagnosed Date Resolved Date Platelets decreased 10/02/2023 11/25/19 24 Renal failure, unspecified 11/25/2002 0 05/27/2006 Urinary tract infection, site not specified 11/24/2002 08/21/2016 documented as of this encounter (statuses as of 02/09/2024) [address]16-2023 History of Past illness Narrative* Problem Noted Date Diagnosed Date Resolved Date Platelets decreased 10/02/2023 11/25/19 24 Renal failure, unspecified 11/25/2002 0 05/27/2006 Urinary tract infection, site not specified 11/24/2002 08/21/2016 documented as of this encounter (statuses as of 02/10/2024) [address]23 History of Past illness Narrative* Problem Noted Date Diagnosed Date Resolved Date Platelets decreased 10/02/2023 11/25/19 24 Renal failure, unspecified 11/25/2002 0 05/27/2006 Urinary tract infection, site not specified 11/24/2002 08/21/2016 documented as of this encounter (statuses as of 02/16/2024) [address]16-2023 History of Past illness Narrative* Problem Noted Date Diagnosed Date Resolved Date Platelets decreased 10/02/2023 11/25/19 24 Renal failure, unspecified 11/25/2002 0 05/27/2006 Urinary tract infection, site not specified 11/24/2002 08/21/2016 documented as of this encounter (statuses as of 02/17/2024) [address]2023 History of Past illness Narrative* Problem Noted Date Diagnosed Date Resolved Date Platelets decreased 10/02/2023 11/25/19 24 Renal failure, unspecified 11/25/2002 0 05/27/2006 Urinary tract infection, site not specified 11/24/2002 08/21/2016 documented as of this encounter (statuses as of 02/20/2024) [address]2023 History of Past illness Narrative* Problem Noted Date Diagnosed Date Resolved Date Platelets decreased 10/02/2023 11/25/19 24 Renal failure, unspecified 11/25/2002 0 05/27/2006 Urinary tract infection, site not specified 11/24/2002 08/21/2016 documented as of this encounter (statuses as of 02/20/2024) [address]2023 History of Past illness Narrative* Problem Noted Date Diagnosed Date Resolved Date Platelets decreased 10/02/2023 11/25/19 24 Renal failure, unspecified 11/25/2002 0 05/27/2006 Urinary tract infection, site not specified 11/24/2002 08/21/2016 documented as of this encounter (statuses as of 02/23/2024) [address]2023 History of Past illness Narrative* Problem Noted Date Diagnosed Date Resolved Date Platelets decreased 10/02/2023 11/25/19 24 Renal failure, unspecified 11/25/2002 0 05/27/2006 Urinary tract infection, site not specified 11/24/2002 08/21/2016 documented as of this encounter (statuses as of 03/04/2024) [address]2023 History of Past illness Narrative* Problem Noted Date Diagnosed Date Resolved Date Platelets decreased 10/02/2023 11/25/19 24 Renal failure, unspecified 11/25/2002 0 05/27/2006 Urinary tract infection, site not specified 11/24/2002 08/21/2016 documented as of this encounter (statuses as of 03/04/2024) [address]2023 History of Past illness Narrative* Problem Noted Date Diagnosed Date Resolved Date Platelets decreased 10/02/2023 11/25/19 24 Renal failure, unspecified 11/25/2002 0 05/27/2006 Urinary tract infection, site not specified 11/24/2002 08/21/2016 documented as of this encounter (statuses as of 03/04/2024) [address]2023 History of Past illness Narrative* Problem Noted Date Diagnosed Date Resolved Date Platelets decreased 10/02/2023 11/25/19 24 Renal failure, unspecified 11/25/2002 0 05/27/2006 Urinary tract infection, site not specified 11/24/2002 08/21/2016 documented as of this encounter (statuses as of 03/05/2024) [address]2023 History of Past illness Narrative* Problem Noted Date Diagnosed Date Resolved Date Platelets decreased 10/02/2023 11/25/19 24 Renal failure, unspecified 11/25/2002 0 05/27/2006 Urinary tract infection, site not specified 11/24/2002 08/21/2016 documented as of this encounter (statuses as of 03/06/2024) [facility]14[facility]23 Miscellaneous Notes* Telephone Encounter - Caprice Donato - 09/30/2023 4:40 PM EST Check out comments: CT A/P few days prior to OV with Dr. Palacios - SCHEDULED. Add CMP/LDH/AFP/Beta HCG to labs 10/13. - added as directed. OV/CBC/CMP/LDH/AFP/Beta HCG in about 8 weeks. - SCHEDULED documented in this encounterProtestant Hospital11-14-2023 History of Present illness Narrative* Hardik Wilkerson DO - 09/30/2023 4:15 PM EST Oncologic problem(s): 1) Stage IIIB seminoma. HPI: The patient is a 33 yo male with a PMH significant for HTN, CKD stage 3 (posterior urethral valves), obesity, diabetes and autism. Underwent evaluation for lower back pain. May 14, 2023 CT abdomen and pelvis: FINDINGS: The visualized lung bases are unremarkable. The visualized portions of the heart are within normal limits. Normal liver. Normal gallbladder and extrahepatic biliary system. Normal spleen. Normal pancreas. Normal bilateral adrenal glands. Irregular appearance of both kidneys. Findings are suggestive of multiple bilateral renal cysts. Correlation with ultrasound is recommended. There is a 3.7 mm nonobstructive calculus in the lower pole of the left kidney. There is a small hiatal hernia. Normal small intestine. Normal colon. The appendix is visualized and appears normal. Normal abdominal aorta. Normal inferior vena cava. There is retroperitoneal lymphadenopathy with enlarged nodes greater than 10-15mm in the short axis. Normal urinary bladder. Normal abdominal wall. Minimal anterior listhesis of L5 on S1 secondary to spondylolysis of the pars interarticularis of the L5 vertebrae. IMPRESSION: Diffuse enlargement of retroperitoneal lymphadenopathy. Lymphoma should be ruled out. Nonobstructive S in the lower pole calyx of the left kidney. Heterogeneous appearance of both kidneys suggestive of multiple bilateral renal cysts. 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 See comment. COMMENT The specimen is evaluated at the time of biopsy by Dr. Muñiz. Immediate Evaluation = Atypical lymphocytes present. The specimen is sent to [facility] for expert opinion and reviewed by Dr. Cat and above diagnosis is rendered. The complete report is viewable in patient s EMR. Flow cytometry studies from [facility] show no evidence of B-cell or T-cell lymphoma. The complete report is viewable in patients EM May 26, 2023 testicular ultrasound: FINDINGS: RIGHT TESTICLE: Right testicle is heterogeneous with what appear to be multiple masses replacing the normal parenchyma. Normal arterial flow present in the testicle with monophasic waveforms. The right testicle measures 5.9 x 4.3 x 3.4 cm. LEFT TESTICLE: Unremarkable. Normal in size and echotexture. No focal lesion. Normal arterial flow present in the testicle with monophasic waveforms. EPIDIDYMIDES: Small left epididymal cyst. Normal color Doppler flow pattern in the epididymis. SCROTUM: Small right hydrocele. No varicocele. Impression: 1. Heterogeneous right testicle with multiple masses. 2. Normal left testicle. 3. Small left epididymal cyst. June 03, 2023 CT chest: FINDINGS: LUNGS, PLEURA AND LARGE AIRWAYS: There is mild atelectasis in the lingula. Lungs appear otherwise clear. No pleural effusions are noted. No pleural effusion or thickening. No pneumothorax. THYROID: No thyroid lesions. HEART AND PERICARDIUM: Heart size is normal. There is a small pericardial effusion. CORONARY ARTERIES: Coronary artery calcification VESSELS: Thoracic aorta is not dilated. MEDIASTINUM AND SHYAM: No mediastinal or hilar adenopathy. Esophagus is unremarkable. No hiatal hernia. UPPER ABDOMEN: The kidneys appear lobular nature bilaterally possible underlying cysts difficult to evaluate without IV contrast. Extensive retroperitoneal lymphadenopathy is noted also seen on previous abdominal CT which may be related to history of testicular cancer. BONES: No suspicious lytic or blastic abnormality. Was to undergo orchidectomy at [facility], but aborted due to high BP. Here today with his adoptive mother and weight loss centre manager from the [employer]. He has no particular complaints. Denies testicular pain but having abdominal pain. When given prescription of Vicodin at the ER, it helped. He is out. He lives alone/independently but has 16 hr/day supervision. Answers questions appropriately. Enjoys art and in particular drawing cars. Presents for ongoing oncologic management. Interim history: Completed cycle 4. As posterior lesion left lower cheek. No fever. Mild fatigue. Appetite is fair. Lower extremity swelling improved. No symptoms of neuropathy. PAST MEDICAL HISTORY Diagnosis Date Diabetes mellitus (HCC) Essential hypertension Other specified pervasive developmental disorders, current or active state PDD Renal failure, unspecified Unspecified intellectual disabilities borderline IQ 79 ALLERGIES Allergen Reactions Keflex [Cephalexin] Rash Social History Tobacco Use Smoking status: Never Smokeless tobacco: Never Vaping Use Vaping Use: Never used Substance Use Topics Alcohol use: Never Drug use: Never Family History Adopted: Yes Problem Relation Age of Onset No Known Problems Mother PHYSICAL EXAM: Vitals: Blood pressure 127/79, pulse 94, temperature 36.1 C (96.9 F), weight 123.2 kg (271 lb 8 oz), SpO2 100 %. Pale-appearing and in no acute distress. EYES: Sclerae are anicteric bilaterally LYMPHATIC: There is no palpable cervical, supraclavicular adenopathy. RESPIRATORY: Inspiratory breath sounds are of normal intensity in all rios. No rales, wheezes or rhonchi. Expiratory phase is normal. CARDIOVASCULAR: Rhythm is regular. ABDOMEN: The abdomen is nondistended. No splenomegaly or hepatomegaly. No tenderness. : Right testicle--normal to palpation. Extremities: Mild symmetric swelling both legs--Improved. SKIN: Pustular lesion left lower cheek. Surrounding erythema. LABS: Reviewed CBC and tumor markers. 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 -Complicated by stage 3b CKD. -Previously discussed therapy with Dr. Palacios--we we favored chemotherapy upfront then orchidectomy. Avoided busulfan due to compromised renal function and increased risk of pulmonary fibrosis. According to guidelines, etoposide dose reduced to 75%. Dosing carboplatin based on AUC. -Reviewed the results and the images of the CT scans with the patient and his family. Significant [place]. Calcifications in the retroperitoneal lymph node mass. Most recent CTs however were scheduled on day 2 of his 4 cycle of chemotherapy. -Beta-hCG normalized. LDH decreased but remains elevated. -Reviewed plan going forward with patient and family. He will require orchidectomy and opinion regarding possible RP dissection. Plan: -Repeat CT scan abdomen pelvis in about 2 weeks. -Referral back to Dr. Palacios [facility]. -Referral to surgical urology. -Rx doxycycline. -Office visit in about 8 weeks. Portions of this documentation were copied and pasted from previous office visit notes in order to provide a cohesive continuity of the history. The note has been reviewed and edited and updated as necessary. I spent a total of 25 minutes on the date of the service which included preparing to see the patient, [id number] patient care, completing clinical documentation, obtaining and/or reviewing separately obtained history, performing a medically appropriate examination, counseling and educating the pat ient/family/caregiver, ordering medications, tests, or procedures, and communicating results to thepatient/family/caregiver. Hardik Wilkerson DO documented in this encounterProtestant Hospital11-09-2023 Miscellaneous Notes* Telephone Encounter - Hardik Wilkerson DO - 09/25/2023 4:01 PM EST Noted. Thank you. Hardik Wilkerson DO * Telephone Encounter - Shanta Cervantes LPN - 09/25/2023 3:21 PM EST Patient s identity has been confirmed by name and birthdate: Yes Call received from Ozzy Parikh at 3:19 PM to report an urgent value for WBC with a result of 0.97. Dr. Wilkerson was notified of the result at 4:00PM. Shanta Cervantes LPN documented in this encounterProtestant Hospital11-09-2023 Miscellaneous Notes* Telephone Encounter - Shanta Cervantes LPN - 09/25/2023 2:59 PM EST Pt. Scheduled for transfusion 09/26 @ 8:30 am [facility] @ 8:30 am for transfusion 2 units packed cells . Pt, and lab notified, orders faxed. Shanta Cervantes LPN documented in this encounterProtestant Hospital11-09-2023 Miscellaneous Notes* Telephone Encounter - Hardik Wilkerson DO - 09/25/2023 2:01 PM EST Order changed to stat and filed. We are all cannot be on the look out for the results because I have not been able to address my in basket on results yet today. Hardik Wilkerson DO * Telephone Encounter - Alysia Medellin LPN - 09/25/2023 1:17 PM EST Tiffanie animal ride manager calling today to give BP update on pt. This morning his BP was 101/63. This afternoon it is 88/53 with a pule of 99. She states he does get lightheaded when he goes from sitting to standing. I asked her to take BP sitting and standing. Sitting BP is 94/61 p104 Standing BP 71/32 P 127 Has to stop when he 's walking and hold onto something. Tiffanie says he is eating and is drinking like normal today. Denies chest pain no fluttering in his chest. Answering questions as normal. Tiffanie states he is acting normal, no other symptoms, feels fineotherwise. Next lab draw is Sunday 09/30. Alysia Medellin LPN documented in this encounterProtestant Hospital11-06-2023 Miscellaneous Notes* Telephone Encounter - Shanta Cervantes LPN - 09/22/2023 12:37 PM EST [place]. Scheduled with Dr. Antonio Brown 10/21 @ 4:30 [facility]. Spoke with Tiffanie pt. Caregiver , she is aware of dates and times. Shanta Cervantes LPN * Telephone Encounter - Hardik Wilkerson DO - 09/22/2023 11:26 AM EST Yes. Hardik Wilkerson DO * Telephone Encounter - Shanta Cervantes LPN - 09/22/2023 10:25 AM EST Appt. With Dr. Palacios is scheduled for Oct 17. Is that soon enough? Pended order for consult to surgeon Dr. Enrique does not do Orchiectomies, Stephanie Ray , And Tc do procedure. Tim could get in soonest, do you want scheduled with him? Shanta Cervantes LPN documented in this encounterProtestant Hospital11-01-2023 Miscellaneous Notes* [facility] - Fatou Monreal RT(Esteban) - 09/17/2023 1:00 PM EDT Radiology Service Progress Note PATIENT NAME: Paul Palacios DATE OF SERVICE: September 17, 2023 TIME: 12:47 PM PATIENT IDENTITY VERIFICATION COMPLETED USING TWO (2) IDENTIFIERS: Name and Date of confirmedby patient verbally. FALL SCREENING: Has the patient had 2 falls in the last year or 1 fall with injury or currently using an Ambulatory Assistive Device (Walker, Cane, Wheelchair, Crutches, etc.)? No PATIENT GENDER DATA: Male PATIENT RELEVANT IMPLANT DATA REVIEWED: Not Applicable RADIOLOGY DEPARTMENT: CT; Exam(s) Completed: Chest Abdomen Pelvis PERIPHERAL IV DATA: Not applicable SIGNED BY: RT Shreya(Esteban) September 17, 2023 12:47 PM documented in this encounterProtestant Hospital11-01-2023 History of Present illness Narrative* Vera Ivey, RN - 09/17/2023 8:36 AM EDT Assessment unchanged from 09/16/23 chemotherapy treatment documented in this encounterProtestant Hospital10-31-2023 Miscellaneous Notes* Telephone Encounter - Yane Velez - 09/16/2023 11:30 AM EDT PT scheduled for Cycle 4. Per treatment Plan no Cycle 5 listed. Pt scheduled for CT & OV as directed * Telephone Encounter - Chantell Nguyen LPN - 09/16/2023 10:11 AM EDT PSS- please put patient on treatment schedule today @ 11:00 for CBC/CMP/MAG and tumor markers, C4 D1. Patient will need D2, D3 and D4 scheduled for the rest of this week. Patient will not have D5 of this cycle. I left a message for patient's mother and I spoke with Tiffanie, housemaid. She will bring patientto appointment today. Patient will also need CT C/A/P then OV in [address] Wilkerson- please file orders. Chantell Nguyen LPN * Telephone Encounter - Alysia Medellin LPN - 09/16/2023 9:47 AM EDT Last OV said orchiectomy after 4th cycle. Please advise on 4th cycle, nothing scheduled. 08/29 was day 5 of cycle 3. Alysia Medellin LPN * Telephone Encounter - Kia Rodriguez - 09/16/2023 9:07 AM EDT Call received asking if patient is to have chemo this week. Nothing scheduled. Please advise if patient is continuing treatment. documented in this encounterProtestant Hospital10-23-2023 Miscellaneous Notes* Telephone Encounter - Shanta Cervantes LPN - 09/08/2023 2:00 PM EDT Spoke with Tiffanie, clarissa. Caregiver, Informed pt. Potassium was low, likely due to the lasix. Instructed rx for potassium was sent to pharmacy , take one daily and Dr. Wilkerson would like for him to start today. Tiffanie voiced understanding. Shanta Cervantes LPN * Telephone Encounter - Hardik Wilkerson DO - 09/08/2023 1:43 PM EDT His potassium is somewhat lower. Likely because of Lasix. Advise his caregiver to start him on potassium 1 pill daily beginning today if able. Rx sent. Hardik Wilkerson DO documented in this encounterProtestant Hospital10-11-2023 History of Present illness Narrative* Briseida Pierce RN - 08/27/2023 3:10 PM EDT No changes to assessment from tx yesterday. Briseida Pierce RN documented in this encounterProtestant Hospital10-10-2023 History of Present illness Narrative* Vera Ivey RN - 08/26/2023 1:27 PM EDT Assessment unchanged from 08/25/23 chemotherapy treatment documented in this [facility]10-09-2023 History of Present illness Narrative* Maribel Napoles RN - 08/25/2023 4:32 PM EDT Patient arrives for C3 D1 of carbo/etoposide. Labs resulted and reviewed with Dr Wilkerson. Orders received to give one unit of PRBC's tomorrow. Treatment today with adjusted carbo dose due to renal function. Orders received to treat today. Education done regarding blood transfusion with patient, mother and caregiver. Verbalized understanding and denies other needs. Maribel Napoles RN documented in this encounterProtestant Hospital10-09-2023 Miscellaneous Notes* Telephone Encounter - Alysia Medellin LPN - 08/25/2023 2:40 PM EDT Patient scheduled for transfusion of 1 units of PRBC to be given at [facility] on 08/26 at 0930. Orders faxed, patient notified. Alysia Medellin LPN documented in this encounterProtestant Hospital10-06-2023 Miscellaneous Notes* Telephone Encounter - Caprice Simpson RN - 08/22/2023 9:43 AM EDT Contact pt's ride for Friday. They will be in at 12:30 for lab draw. documented in this encounterProtestant Hospital10-05-2023 Miscellaneous Notes* Telephone Encounter - Shatna Cervantes LPN - 08/21/2023 1:14 PM EDT Spoke with pts. Mother, informed pt. Can restart the Lasix, Hold if the swelling is controlled, restart if swelling recurs. Mother voiced understanding. Shanta Cervantes LPN * Telephone Encounter - Hardik Wilkerson DO - 08/21/2023 1:03 PM EDT Restart Lasix daily. Hold 1 swelling is controlled. Can restart if swelling recurs. Hardik Wilkerson DO * Telephone Encounter - Janay Shields RN - 08/21/2023 12:16 PM EDT [facility] Coordination FOLLOW-UP NOTE Patient identified by name and date of . YES Spoke to Tiffanie Moreno stated patient has bilateral lower extremity pitting edema that started 2-3 days ago. Tiffaniestated the swelling is up to his knees; denies fever, chills, SOB, chest discomfort/pressure/pain, or pain/redness in the lower extremities. Tiffanie stated patient has been elevating his legs without relief. Patient has taken lasix in the past which has helped with the swelling. Patient is scheduled for treatment next Friday. Patient was scheduled for an OV on 08/[address] Wilkerson but this was cancelled due to provider needing to be out of the office. Care Coordination Plan: Will follow up with Dr. Wilkerson and will call back with further instructions. Janay Shields RN August 21, 2023 * Telephone Encounter - Caprice Donato - 08/21/2023 11:57 AM EDT This PSS spoke with Tiffanie, a staff member at the patient's home, nd the patient has had bilateral leg swelling for 2-3 days. He has been keeping them elevated, but swelling has not gone done and it is pitting. Please advise.Caprice documented in this encounterProtestant Hospital09-29-2023 History of Present illness Narrative* Leida Boyer RT(R) - 08/15/2023 11:00 AM EDT Radiology Service Progress Note PATIENT NAME: Paul Palacios DATE OF SERVICE: August 15, 2023 TIME: 11:33 AM PATIENT IDENTITY VERIFICATION COMPLETED USING TWO (2) IDENTIFIERS: Name and Date of confirmedby patient verbally. FALL SCREENING: Has the patient had 2 falls in the last year or 1 fall with injury or currently using an Ambulatory Assistive Device (Walker, Cane, Wheelchair, Crutches, etc.)? No PATIENT GENDER DATA: Male PATIENT RELEVANT IMPLANT DATA REVIEWED: Yes RADIOLOGY DEPARTMENT: CT; Exam(s) Completed: Abdomen/Pelvis PERIPHERAL IV DATA: Not applicable SIGNED BY: RT Serafin(R) August 15, 2023 11:33 AM documented in this encounterProtestant Hospital09-20-2023 History of Present illness Narrative* Vera Ivey RN - 08/06/2023 1:44 PM EDT Assessment unchanged from 08/05/23 chemotherapy treatment documented in this encounterProtestant Hospital09-19-2023 Miscellaneous Notes* Telephone Encounter - Alysia Medellin LPN - 08/05/2023 8:33 AM EDT Pt mother notified, voices understanding. Alysia Medellin LPN * Telephone Encounter - Hardik Wilkerson DO - 08/04/2023 6:55 PM EDT Please let his mother know that the culture of the infection on his right lower leg showed staph infection. It is not MRSA. The doxycycline should clear it up. I need someone to take a look at it tomorrow when he is here for chemotherapy. Hardik Wilkerson DO documented in this encounterProtestant Hospital09-18-2023 History of Present illness Narrative* Susy Guido RN - 08/04/2023 10:08 AM EDT Informed Rosie the staff member accompanying the patient of the lasix order per Dr Wilkerson, copy of note given. Also aware that RX was sent in. Verbalized understanding. documented in this encounterProtestant Hospital09-15-2023 History of Present illness Narrative* Hardik Wilkerson DO - 08/01/2023 3:39 PM EDT Oncologic problem(s): 1) Stage IIIB seminoma. HPI: The patient is a 32 yo male with a PMH significant for HTN, CKD stage 3 (posterior urethral valves), obesity, diabetes and autism. Underwent evaluation for lower back pain. May 14, 2023 CT abdomen and pelvis: FINDINGS: The visualized lung bases are unremarkable. The visualized portions of the heart are within normal limits. Normal liver. Normal gallbladder and extrahepatic biliary system. Normal spleen. Normal pancreas. Normal bilateral adrenal glands. Irregular appearance of both kidneys. Findings are suggestive of multiple bilateral renal cysts. Correlation with ultrasound is recommended. There is a 3.7 mm nonobstructive calculus in the lower pole of the left kidney. There is a small hiatal hernia. Normal small intestine. Normal colon. The appendix is visualized and appears normal. Normal abdominal aorta. Normal inferior vena cava. There is retroperitoneal lymphadenopathy with enlarged nodes greater than 10-15mm in the short axis. Normal urinary bladder. Normal abdominal wall. Minimal anterior listhesis of L5 on S1 secondary to spondylolysis of the pars interarticularis of the L5 vertebrae. IMPRESSION: Diffuse enlargement of retroperitoneal lymphadenopathy. Lymphoma should be ruled out. Nonobstructive S in the lower pole calyx of the left kidney. Heterogeneous appearance of both kidneys suggestive of multiple bilateral renal cysts. 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 See comment. COMMENT The specimen is evaluated at the time of biopsy by Dr. Muñiz. Immediate Evaluation = Atypical lymphocytes present. The specimen is sent to [facility] for expert opinion and reviewed by Dr. Cat and above diagnosis is rendered. The complete report is viewable in patient s EMR. Flow cytometry studies from [facility] show no evidence of B-cell or T-cell lymphoma. The complete report is viewable in patients EM May 26, 2023 testicular ultrasound: FINDINGS: RIGHT TESTICLE: Right testicle is heterogeneous with what appear to be multiple masses replacing the normal parenchyma. Normal arterial flow present in the testicle with monophasic waveforms. The right testicle measures 5.9 x 4.3 x 3.4 cm. LEFT TESTICLE: Unremarkable. Normal in size and echotexture. No focal lesion. Normal arterial flow present in the testicle with monophasic waveforms. EPIDIDYMIDES: Small left epididymal cyst. Normal color Doppler flow pattern in the epididymis. SCROTUM: Small right hydrocele. No varicocele. Impression: 1. Heterogeneous right testicle with multiple masses. 2. Normal left testicle. 3. Small left epididymal cyst. June 03, 2023 CT chest: FINDINGS: LUNGS, PLEURA AND LARGE AIRWAYS: There is mild atelectasis in the lingula. Lungs appear otherwise clear. No pleural effusions are noted. No pleural effusion or thickening. No pneumothorax. THYROID: No thyroid lesions. HEART AND PERICARDIUM: Heart size is normal. There is a small pericardial effusion. CORONARY ARTERIES: Coronary artery calcification VESSELS: Thoracic aorta is not dilated. MEDIASTINUM AND SHYAM: No mediastinal or hilar adenopathy. Esophagus is unremarkable. No hiatal hernia. UPPER ABDOMEN: The kidneys appear lobular nature bilaterally possible underlying cysts difficult to evaluate without IV contrast. Extensive retroperitoneal lymphadenopathy is noted also seen on previous abdominal CT which may be related to history of testicular cancer. BONES: No suspicious lytic or blastic abnormality. Was to undergo orchidectomy at [facility], but aborted due to high BP. Here today with his adoptive mother and weight loss centre manager from the [employer] organization. He has no particular complaints. Denies testicular pain but having abdominal pain. When given prescription of Vicodin at the ER, it helped. He is out. He lives alone/independently but has 16 hr/day supervision. Answers questions appropriately. Enjoys art and in particular drawing cars. Presents for ongoing oncologic management. Interim history: Tolerated cycle #1 very well. No nausea. Back nearly resolved. No pain med since 07/29 (went to the fair). Swelling both legs. Small infection right lower leg--PCP started doxycycline. Salt intake probably up--fair food. PAST MEDICAL HISTORY Diagnosis Date Diabetes mellitus (HCC) Essential hypertension Other specified pervasive developmental disorders, current or active state PDD Renal failure, unspecified Unspecified intellectual disabilities borderline IQ 79 ALLERGIES Allergen Reactions Keflex [Cephalexin] Rash Social History Tobacco Use Smoking status: Never Smokeless tobacco: Never Vaping Use Vaping Use: Never used Substance Use Topics Alcohol use: Never Drug use: Never Family History Adopted: Yes Problem Relation Age of Onset No Known Problems Mother ROS: Constitutional: No fever. No drenching night sweats. Normal appetite. No unexplained weight loss. No significant fatigue. Neuro: No recent HARRIS, vertigo, dizziness or imbalance. No symptoms of sensory neuropathy. HEENT: No recent change in voice, vision or hearing. Resp: No cough, wheeze of hemoptysis. No shortness of breath at rest. No HURST. CVS: No exertional chest pain, PND or orthopnea. No extremity swelling/edema. No symptoms of claudication. No painful or tender varicose veins. GI: No dysgeusia. No symptoms of stomatitis. No dysphagia or odynophagia. No reflux, n/v, change inbowel habits. No abdominal pain, bloating or distension. No black or bloody stools. : Denies testicular pain. Endo: No hot flashes. No polyuria or polydipsia. No heat or cold intolerance. Musculoskeletal: No bone, back, joint and muscular pain. Derm: No current rash. No history of jaundice. No diffuse pruritis. Heme: No unusual bleeding and unexplained bruising. Psych: Normal mood. PHYSICAL EXAM: Vitals: Blood pressure 122/73, pulse 102, temperature 36 C (96.8 F), temperature source Temporal, weight 125.9 kg (277 lb 8 oz), SpO2 100 %. Well-appearing and in no acute distress. EYES: Sclerae are anicteric bilaterally. ENT: Oral mucosa is unremarkable. There is no sign of thrush or mucositis. LYMPHATIC: There is no palpable cervical, supraclavicular, axillary or inguinal adenopathy. RESPIRATORY: Inspiratory breath sounds are of normal intensity in all rios. No rales, wheezes or rhonchi. Expiratory phase is normal. CARDIOVASCULAR: Rhythm is regular. ABDOMEN: The abdomen is nondistended. No splenomegaly or hepatomegaly. No tenderness. : Right testicle is much smaller. Extremities: Symmetric swelling both legs. SKIN:Erythematous patch RLE. Central ulceration. Swabbed. LABS: LDH 397 BHCG 120 AFP <1.8 05/26/2023. 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 -Complicated by stage 3b CKD. -Has not yet had orchidectomy. -Previously discussed therapy with Dr. Palacios--we are favoring chemotherapy upfront then orchidectomy. Regimen discussed with chemotherapy pharmacy. Avoiding busulfan due to compromised renal function and increased risk of pulmonary fibrosis. According to guidelines, etoposide dose reduced to 75%. Dosing carboplatin based on AUC. -Recommended 4 cycles of carboplatin and etoposide with the use of PEG filgrastim. -Tolerating very well. -Very good response by exam. Plan: -Okay for cycle #2 Friday. -Weekly CBC. -OV/CBC/CMP/AFP/BCHG/LDH/Mg for cycle #3. -CT following 2 cycles. -Orchidectomy following 4 cycles. -Swab for Gram stain and culture sent. Portions of this documentation were copied and pasted from previous office visit notes in order to provide a cohesive continuity of the history. The note has been reviewed and edited and updated as necessary. I spent a total of 25 minutes on the date of the service which included preparing to see the patient, [id number] patient care, completing clinical documentation, obtaining and/or reviewing separately obtained history, performing a medically appropriate examination, counseling and educating the pat ient/family/caregiver, ordering medications, tests, or procedures, communicating with other HCPs (not separately reported), and communicating results to the patient/family/caregiver. Hardik Wilkerson DO documented in this encounterProtestant Hospital09-08-2023 Miscellaneous Notes* Telephone Encounter - Hardik Wilkerson DO - 07/25/2023 12:14 PM EDT Noted. Thank you. Hardik Wilkerson DO * Telephone Encounter - Alysia Medellin LPN - 07/25/2023 10:23 AM EDT Dax from [facility] palliative care calls to say they are following this pt, when he is due fora refill of any opiod they will take care of it. She also let the Sn[facility] aware. Alysia Medellin LPN documented in this encounterProtestant Hospital09-05-2023 Miscellaneous Notes* Telephone Encounter - Janay Shields RN - 07/22/2023 4:14 PM EDT Tiffanie called back stating patient has equal bilateral lower extremity swelling in both feet and ankles that she just noticed today. Tiffanie denies redness, pain, difficulty walking, pitting edema, SOB,chest pain/pressure, or cough. Patient can get shoes on but they are a little tight. Patient is nottoo active per Tiffanie and has been sitting without elevating his legs. Tiffanie is going to have patient elevate his legs above his heart and will check his feet and ankles tomorrow morning. Tiffanie was advised to start weighing patient and call if there is a 5 lb or more weight gain. Tiffanie also advised to call if there are any new symptoms of redness, pain, SOB, chest pain/pressure, or worsening swelling. Tiffanie aware that this nurse will provide Dr. Wilkerson with an update and will call back with further instructions if needed. Tiffanie stated understanding. Janay Shields RN * Telephone Encounter - Janay Shields RN - 07/22/2023 1:30 PM EDT TOXICITY CHECK Spoke to Tiffanie SYMPTOM ASSESSMENT The patient is on Carboplatin/Etoposide Headache: No Visual Changes: No Dizziness: No Do you have any periods of confusion? No Mood changes: No Mouth or throat pain: No Appetite: no changes in appetite, appetite good Taste changes: No Nausea: No Vomiting: No Heartburn: No. Weight gain/loss: No Episodes of palpitations/chest discomfort/pressure/pain No Shortness of breath: No Cough: No Diarrhea: no Constipation: yes, took miralax and going good now. Last BM yesterday. Bladder/Urinary Changes: None Pain: No=0 (pain 0 on a scale of 0-10). Fever: No Chills: No Cold sensitivity: No Numbness/weakness: No Edema: No Skin changes: No Itching: No Yellowing of skin or eyes: No Musculoskeletal/joint changes/issues No Bleeding issues: No Activity Level: good Do you need to take naps? No Does the patient need interventions or same day appointment:No Reinforced CURRENT treatment education based on current and anticipated symptoms. Discussed port/line care and patient verbalizes understanding: Yes Patient instructed to contact office or after hours Hematology/Oncology fellow for: temperature ? 100.4; questions or concerns. Patient verbalized understanding of when to seek medical attention and after hours number protocol. Janay Shields RN documented in this encounterProtestant Hospital2023 History of Present illness Narrative* Vera Ivey RN - 07/17/2023 9:13 AM EDT Assessment unchanged from 07/16/23 chemotherapy treatment documented in this encounterProtestant Hospital08-30-2023 Miscellaneous Notes* Telephone Encounter - Janay Shields RN - 07/16/2023 2:44 PM EDT CYCLE 1/DAY 1 POST TREATMENT CALL Today's date: July 16, 2023 Treatment Regimen: Carboplatin/Etoposide C1D1 Date: 07/14/23 Called patient to follow-up on symptom management. Spoke with Tiffanie SYMPTOM ASSESSMENT Neuro: None CV/Resp: None GI/: None Integument: None Activity: Patient reported no changes in energy level, energy level good Pain: No=0 (pain 0 on a scale of 0-10). Fever: No Chills: No Tiffanie stated patient has tolerated treatment very well so far with no symptom concerns at this time. Glucose has been a little higher, was 129 today. Reviewed with Tiffanie that steroids cause glucose levels to increase, the importance of monitoring, and when to contact PCP. Tiffanie stated understanding. Any new referrals needed? No Reinforced CURRENT treatment education based on current and anticipated symptoms. Discussed port/line care and patient verbalizes understanding: Yes Patient instructed to contact office or after hours Hematology/Oncology fellow for: temperature ? 100.4; questions or concerns. Patient verbalized understanding of when to seek medical attention and after hours number protocol. Janay Shields RN documented in this encounterProtestant Hospital08-30-2023 NoteReceived is a request for second opinion consultation by Dr. Maninder Rankin. Pathologist Please. [place] static testicular cancer. Preoperative Diagnosis: Retroperitoneal lymphadenopathy.[facility]tering [facility] Washington TownshipComment on above: Performed By: #### SURGP #### [facility] (DEFAULT) [address] [place] [address] [id number] Miscellaneous Notes* Telephone Encounter - Ricardo Little RN - 07/14/2023 1:55 PM EDT Pt and Tiffanie notified, verbalized understanding. * Telephone Encounter - Hardik Wilkerson DO - 07/14/2023 1:45 PM EDT Yes, he can use Phenergan for the next 72 hours. Thereafter Zofran if needed. Hardik Wilkerson DO * Telephone Encounter - Ricardo Little RN - 07/14/2023 1:34 PM EDT Pt is in room 2 for start carboplatin and etoposide. Pt has aloxi as a premed and PO zofran PRN forhome meds. Should he be on another PRN antiemetic for the next 72 hours? Please advise, thank you. Ricardo OLSON documented in this encounterProtestant Hospital08-25-2023 Miscellaneous Notes* Telephone Encounter - Janay Shields RN - 07/11/2023 4:45 PM EDT Left a detailed message on Juan Ramon stating the medications have been sent in. Reviewed emla creaminstructions with patient and Tiffanie lei, apply 1 hour prior to treatment or labs. Janay Shields RN * Telephone Encounter - Hardik Wilkerson DO - 07/11/2023 4:38 PM EDT I am okay with him taking Zofran. Requested Prescriptions Signed Prescriptions Disp Refills lidocaine-prilocaine (EMLA) 2.5-2.5 % cream 30 g 0 Sig: Apply to affected area as needed. Authorizing Provider: HARDIK WILKERSON ondansetron (ZOFRAN) 8 mg tablet 30 tablet 2 Sig: Take 1 tablet by mouth every 8 hours as needed for nausea/vomiting. Authorizing Provider: HARDIK WILKERSON DO * Telephone Encounter - Janay Shields RN - 07/11/2023 11:02 AM EDT Patient is requesting emla cream. Patient typically uses [facility] pharmacy however they do not havein stock. [facility] retail pharmacy has in stock. Spoke to Tiffanie and informed her of this, she is okay ifwe send all scripts to [facility] to avoid multiple stops. Dr. Wilkerson- Please advise on antiemetic. There are drug interactions with Zofran, risperidone, and Seroquel; risk of QT prolongation, especially if Zofran is given in IV form. Thank you. Janay Shields RN documented in this encounterProtestant Hospital08-25-2023 Nurse Note* Janay Shields RN - 07/11/2023 3:26 PM EDT This visit was completed via telephone. Janay Shields RN * Janay Sheilds RN - 07/11/2023 3:19 PM EDT ONCOLOGY PATIENT EDUCATION NOTE TOPIC: Chemotherapy, Medications: Carboplatin/Etoposide/Neulasta READINESS TO LEARN: COGNITIVE ABILITY: Alert and oriented MOTIVATION TO LEARN: Interested FAMILY SUPPORT: High - Very involved in pt care INSTRUCTION PROVIDED TO: Patient and Caregiver INSTRUCTION PROVIDED BY: Nurse Coordinator PATIENT LEARNS BEST BY: Multiple Methods FACTORS AFFECTING LEARNING: Literacy Factors: development disorder listed on patients chart as a diagnosis Patient was with caregiver Tiffanie. Patient answered questions appropriately. PHYSICAL LIMITATIONS AFFECTING LEARNING: None LEARNING RESPONSE DIAGNOSIS: stage IIIB good risk seminoma of the right testis METHOD OF INSTRUCTION: Individual instruction Written instruction - handouts Verbal instruction PATIENT/FAMILY RESPONSE: Verbalizes understanding of: CHEMOTHERAPY-Regimen, toxicity and side effects FOLLOW UP PLAN: Patient instructed to call with any further issues Recommend - Recommend continued instruction and follow up as directed Follow up phone call. Contact information given. SUPPLEMENTAL MATERIAL: Written material was provided at this visit with the following information: - Chemotherapy education was provided by a pharmacist NO - Side effect management information was provided/discussed including but not limited to: anemia, appetite changes, arthralgia, bowel habit changes, diet, electrolyte disturbances, fatigue, hair loss, mouth hygiene, mucositis, nausea/vomitting, rash, taste changes, thrombocytopenia YES - Provided important phone numbers and contacts during and after hours. YES - Provided information on symptoms that require immediate assistance. YES - Provided Chemotherapy when to call handouts YES - Preventing infection. YES - Treatment schedule and confirmation of appointment times. YES - Available support groups. YES - The importance of contraception during the course of chemotherapy YES - Neutropenic fever protocol discussed with patient, which included the importance of reporting anyfever of 100.4F (38.0C) or greater to the healthcare team as noted on the provided wallet card and/or magnet. YES Time Spent: 40 minutes REFERRAL (RECOMMENDATION): Social Work Janay Shields RN * Janay Shields RN - 07/11/2023 3:18 PM EDT Senior Business Architect Pre Chemo Patient identified by name and date of . YES Confirmed date and time for chemotherapy ? YES Other appointments (labs, imaging) discussed? YES Discussed where to park (outpatient interviewing clerk), charge for parking YES Discussed where to report (building/floor) YES Any pre-medications ordered? NO Described the infusion room and what to expect. (What to wear, what to bring [iPad, books] amount of time treatment can take, meals and CC options for food) YES Note: Discussed whether the patient can eat prior to labs and treatment. YES Who is driving you to and from treatment? Mother and/or Tiffanie Discussed why it is important to bring someone with you. Yes Resources discussed (music therapy, Art therapy, pet therapy, etc.) NO Education on chemotherapy (drug, side effects) discussed and that the patient will be receiving a C1D1 call within 7 days of treatment. YES Other topics discussed, interventions needed: Janay Shields RN documented in this encounterProtestant Hospital08-24-2023 NoteHNO ID: [id number] Author: Kristin Garcia MD Service: Anesthesiology Author Type: Physician Type: Anesthesia Procedure Notes Filed: 07/10/2023 11:33 AM Note Text: ANESTHESIOLOGY PROCEDURE NOTE Airway General Information Procedure Start Time/Medication Administration: 07/10/2023 11:24 AM Patient location during procedure: OR Timeout Performed Pre-procedure: timeout performed Consent Obtained: Yes Patient identity confirmed: arm band Staffing Anesthesiologist: Kristin Garcia MD Performed by: anesthesiologist Indications and Patient Condition Indications for airway management: anesthesia Preoxygenated: yes anesthesia circuit Patient position: sniffing Method: asleep Cricoid Pressure: No Manual In-Line Stabilization: No Difficult Mask: No Final Airway Details Final airway type: supraglottic airway Number of attempts at approach: 1 Final Supraglottic Airway: i-gel Size 5 Seal Adequate: yes Failed airway: no Unrecognized esophageal intubation: no Airway not difficult SIGNATURE: Kristin Garcia MD PATIENT NAME: Paul Palacios DATE: July 10, 2023 TIME: 11:32 AM CSN: [id number] [id number] NoteHNO ID: [id number] Author: Misty Villa RN Service: Nursing Author Type: Registered Nurse Type: Nursing Progress Note Filed: 07/10/2023 10:40 AM Note Text: Per Dr. Rankin's order, second IV line placed.[facility] 07-08-2023 History of Present illness Narrative* Leida Boyer RT(R) - 07/08/2023 11:20 AM EDT Radiology Service Progress Note PATIENT NAME: Paul Palacios DATE OF SERVICE: July 08, 2023 TIME: 3:59 PM PATIENT IDENTITY VERIFICATION COMPLETED USING TWO (2) IDENTIFIERS: Name and Date of confirmedby patient verbally. FALL SCREENING: Has the patient had 2 falls in the last year or 1 fall with injury or currently using an Ambulatory Assistive Device (Walker, Cane, Wheelchair, Crutches, etc.)? No PATIENT GENDER DATA: Male PATIENT RELEVANT IMPLANT DATA REVIEWED: Yes RADIOLOGY DEPARTMENT: CT; Exam(s) Completed: Chest Abdomen Pelvis PERIPHERAL IV DATA: Not applicable SIGNED BY: RT Serafin(R) July 08, 2023 3:59 PM documented in this encounterProtestant Hospital08-21-2023 Miscellaneous Notes* Telephone Encounter - Momo Graves - 07/07/2023 2:23 PM EDT The patient is active with Medicare A & B along with Medicaid. The patient's financial responsibility is $0 for each treatment in 2022 since there is no OOP to be reached. I left a voicemail withthe patient to return the call. documented in this encounterProtestant Hospital08-17-2023 Miscellaneous Notes* Telephone Encounter - Shanta Alfredo LPN - 07/03/2023 4:09 PM EDT Spoke with Fatou in the lab, we are able to add on the extra lab. Mother was notified also. Shanta Alfredo LPN * Telephone Encounter - Hardik Wilkerson DO - 07/03/2023 3:55 PM EDT Calcium somewhat high. Can we have him come from [place] for additional lab work. Hardik Wilkerson DO documented in this encounterProtestant Hospital08-17-2023 Miscellaneous Notes* Telephone Encounter - Kia Rodriguez - 07/03/2023 1:36 PM EDT Chemo scheduled as requested and Start email sent. * Telephone Encounter - Yane Ramsey - 07/03/2023 11:51 AM EDT Check out comments: Labs today.Scheduled General surgery JOHNY for port.07/08 Chemotherapy teaching.07/11 Begin chemotherapy 07/14.-NEEDS SCHEDULED CBC/CMP/AFP/BCHG/LDH/Mg/Straight back day 1. OV/CBC/CMP/AFP/BCHG/LDH/Mg for cycle #2 Cts -07/08 documented in this encounterProtestant Hospital08-17-2023 Miscellaneous Notes* Telephone Encounter - Janay Shields RN - 07/03/2023 11:34 AM EDT Met with patient and introduced myself. Patient was given a My Journey binder with chemocare information, office contact information, thermometer, and additional chemotherapy resource booklets. Patient aware this nurse will review on scheduled appointment date. Janay Shields RN documented in this encounterProtestant Hospital08-17-2023 History of Present illness Narrative* Hardik Wilkerson DO - 07/03/2023 10:10 AM EDT Patient referred by Dr. Palacios for seminoma. The impression and plan will be communicated by way of the shared electronic record or faxed under separate cover letter. HPI: The patient is a 32 yo male with a PMH significant for HTN, CKD stage 3 (posterior urethral valves), obesity, diabetes and autism. Underwent evaluation for lower back pain. May 14, 2023 CT abdomen and pelvis: FINDINGS: The visualized lung bases are unremarkable. The visualized portions of the heart are within normal limits. Normal liver. Normal gallbladder and extrahepatic biliary system. Normal spleen. Normal pancreas. Normal bilateral adrenal glands. Irregular appearance of both kidneys. Findings are suggestive of multiple bilateral renal cysts. Correlation with ultrasound is recommended. There is a 3.7 mm nonobstructive calculus in the lower pole of the left kidney. There is a small hiatal hernia. Normal small intestine. Normal colon. The appendix is visualized and appears normal. Normal abdominal aorta. Normal inferior vena cava. There is retroperitoneal lymphadenopathy with enlarged nodes greater than 10-15mm in the short axis. Normal urinary bladder. Normal abdominal wall. Minimal anterior listhesis of L5 on S1 secondary to spondylolysis of the pars interarticularis of the L5 vertebrae. IMPRESSION: Diffuse enlargement of retroperitoneal lymphadenopathy. Lymphoma should be ruled out. Nonobstructive S in the lower pole calyx of the left kidney. Heterogeneous appearance of both kidneys suggestive of multiple bilateral renal cysts. 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 See comment. COMMENT The specimen is evaluated at the time of biopsy by Dr. Muñiz. Immediate Evaluation = Atypical lymphocytes present. The specimen is sent to [facility] for expert opinion and reviewed by Dr. Cat and above diagnosis is rendered. The complete report is viewable in patient s EMR. Flow cytometry studies from [facility] show no evidence of B-cell or T-cell lymphoma. The complete report is viewable in patients EM May 26, 2023 testicular ultrasound: FINDINGS: RIGHT TESTICLE: Right testicle is heterogeneous with what appear to be multiple masses replacing the normal parenchyma. Normal arterial flow present in the testicle with monophasic waveforms. The right testicle measures 5.9 x 4.3 x 3.4 cm. LEFT TESTICLE: Unremarkable. Normal in size and echotexture. No focal lesion. Normal arterial flow present in the testicle with monophasic waveforms. EPIDIDYMIDES: Small left epididymal cyst. Normal color Doppler flow pattern in the epididymis. SCROTUM: Small right hydrocele. No varicocele. Impression: 1. Heterogeneous right testicle with multiple masses. 2. Normal left testicle. 3. Small left epididymal cyst. June 03, 2023 CT chest: FINDINGS: LUNGS, PLEURA AND LARGE AIRWAYS: There is mild atelectasis in the lingula. Lungs appear otherwise clear. No pleural effusions are noted. No pleural effusion or thickening. No pneumothorax. THYROID: No thyroid lesions. HEART AND PERICARDIUM: Heart size is normal. There is a small pericardial effusion. CORONARY ARTERIES: Coronary artery calcification VESSELS: Thoracic aorta is not dilated. MEDIASTINUM AND SHYAM: No mediastinal or hilar adenopathy. Esophagus is unremarkable. No hiatal hernia. UPPER ABDOMEN: The kidneys appear lobular nature bilaterally possible underlying cysts difficult to evaluate without IV contrast. Extensive retroperitoneal lymphadenopathy is noted also seen on previous abdominal CT which may be related to history of testicular cancer. BONES: No suspicious lytic or blastic abnormality. Was to undergo orchidectomy at [facility], but aborted due to high BP. Here today with his adoptive mother and weight loss centre manager from the [employer] organization. He has no particular complaints. Denies testicular pain but having abdominal pain. When given prescription of Vicodin at the ER, it helped. He is out. He lives alone/independently but has 16 hr/day supervision. Answers questions appropriately. Enjoys art and in particular drawing cars. PAST MEDICAL HISTORY Diagnosis Date Other specified pervasive developmental disorders, current or active state PDD Renal failure, unspecified Unspecified intellectual disabilities borderline IQ 79 ALLERGIES Allergen Reactions Keflex [Cephalexin] Rash Social History Tobacco Use Smoking status: Never Smokeless tobacco: Never Substance Use Topics Alcohol use: Never Drug use: Never Family History Adopted: Yes ROS: Constitutional: No fever. No drenching night sweats. Normal appetite. No unexplained weight loss. No significant fatigue. Neuro: No recent HARRIS, vertigo, dizziness or imbalance. No symptoms of sensory neuropathy. HEENT: No recent change in voice, vision or hearing. Resp: No cough, wheeze of hemoptysis. No shortness of breath at rest. No HURST. CVS: No exertional chest pain, PND or orthopnea. No extremity swelling/edema. No symptoms of claudication. No painful or tender varicose veins. GI: No dysgeusia. No symptoms of stomatitis. No dysphagia or odynophagia. No reflux, n/v, change inbowel habits. No abdominal pain, bloating or distension. No black or bloody stools. : Denies testicular pain. Endo: No hot flashes. No polyuria or polydipsia. No heat or cold intolerance. Musculoskeletal: No bone, back, joint and muscular pain. Derm: No current rash. No history of jaundice. No diffuse pruritis. Heme: No unusual bleeding and unexplained bruising. Psych: Normal mood. PHYSICAL EXAM: Vitals: Blood pressure 134/82, pulse 89, temperature 36.4 C (97.5 F), height 181 cm (5' 11.26), weight 118.4 kg (261 lb), SpO2 98 %. Well-appearing and in no acute distress. EYES: Sclerae are anicteric bilaterally. ENT: Oral mucosa is unremarkable. There is no sign of thrush or mucositis. LYMPHATIC: There is no palpable cervical, supraclavicular, axillary or inguinal adenopathy. RESPIRATORY: Inspiratory breath sounds are of normal intensity in all rios. No rales, wheezes or rhonchi. Expiratory phase is normal. CARDIOVASCULAR: Rhythm is regular. ABDOMEN: The abdomen is nondistended. No splenomegaly or hepatomegaly. No tenderness. : Right testicle is diffusely enlarged and tender. Left testicle no mass or nodule. Extremities: No swelling or edema. SKIN: No jaundice . LABS: LDH 397 BHCG 120 AFP <1.8 05/26/2023. 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 -Stage 3b CKD. -Uncontrolled abdominal pain. -Has not yet had orchidectomy. -Previously discussed therapy with Dr. Palacios--we are favoring chemotherapy upfront then orchidectomy. Regimen discussed with chemotherapy pharmacy. Avoiding bili oh due to compromised renal function and increased risk of pulmonary fibrosis. According to guidelines, etoposide dose reduced 75%. Dosing carboplatin based on AUC. -Recommending 4 cycles of carboplatin and etoposide with the use of PEG filgrastim. -I talked with the patient and his mother and explained the regimen. I discussed the rationale, logistics, potential risks (including but not limited to alopecia, cytopenias, nausea and vomiting, diarrhea, potential worsening of renal function and potential need for dialysis, infectious issues, small chance of MDS/AML in the future and the small potential for as a consequence of severe toxicity/complications of therapy), benefits and alternatives, as well as the personnel involved in the administration of carboplatin and etoposide. I answered his and his mother's as well as his organizational supervisors questions in detail and they verbalized understanding and agreed with the recommended therapy--mother felt comfortable allowing patient to sign for himself.. Please see the electronic consent document for details of doses and schedule. Plan: -CBC, chemistry panel, hepatitis remote panel, HIV test and repeat tumor markers today. -Repeat baseline CT scans. -Referral to general surgery for port placement JOHNY. -Chemotherapy teaching. -Plan to begin therapy on 07/14. -CBC/CMP/AFP/BCHG/LDH/Mg/Straight back day 1. -OV/CBC/CMP/AFP/BCHG/LDH/Mg for cycle #2. -CT following 2 cycles. -Orchidectomy following 4 cycles. -Refill Vicodin. Activity Duration Pre-charting 25 minutes Chart accessed 5 minutes Exam room 30 minutes Exam room 2 minutes Chart accessed 1 minute Total time: 1 hour 5 minutes* Hardik Wilkerson DO documented in this encounterProtestant Hospital08-16-2023 Miscellaneous Notes* Telephone Encounter - Chantell Nguyen LPN - 07/02/2023 5:20 PM EDT Patient to be scheduled 07/03/2023 @ 10:10 with . Jennifer aguilera. Chantell Nguyen LPN * Telephone Encounter - Chantell Nguyen LPN - 07/01/2023 4:46 PM EDT [facility] consults are in [facility] records placed in Dr. Wilkerson's mailbox for review. Chantell Nguyen LPN * Telephone Encounter - Kia Rodriguez - 07/01/2023 4:19 PM EDT Received 2nd call stating referring provider is requesting Dr. Wilkerson. * Telephone Encounter - Kia Rodriguez - 07/01/2023 4:03 PM EDT Please review and advise. 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 Advised Dr. Palacios [place] Dr[place] grateful[place] closer treatment and agreeable to this plan. documented in this encounterProtestant Hospital08-15-2023 Nurse Note* Meaghan Jefferson RN - 07/01/2023 7:55 AM EDT Late entry: Per no nursing assessment needed.Meaghan Jefferson RN documented in this encounterProtestant Hospital08-14-2023 History of Present illness Narrative* Alexus Palacios MD - 06/30/2023 4:00 PM EDT Images from the original note were not included. [facility] GENITOURINARY ONCOLOGY NEW PATIENT EVALUATION PATIENT NAME: Paul Palacios : 1990 ATTENDING PHYSICIAN: Dr. Palacios DATE OF SERVICE: June 30, 2023 REASON FOR EVALUATION: Consultation requested for an opinion regarding the medical oncologic management of testicular cancer DIAGNOSIS: Testicular Cancer, metastatic HISTORY OF PRESENT ILLNESS: Mr. Palacios is a 32 year old male with past medical history of autism, hypertension, pre-diabetes and stage III CKD presents today for evaluation of recent metastatic testicular cancer. He was accompanied by his parents today. He currently lives in a penitentiary due to developmental delay. Patient presented at an outside hospital with non-traumatic left sided low back pain and CT abdomen and pelvis demonstrated retroperitoneal lymphadenopathy. A biopsy was performed which demonstrated metastaticgerm cell tumor consistent with seminoma. Today, Mr Palacios and his parents are here to discuss the chemotherapy regimen. 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 enteric contrast (will be provided with radiology test) Take 1 Each by mouth one time only for [address] Chest ABD/PEL WO Routine order Administer, As Directed One Time Only, via Oral, Rectal, both Oral and Rectal, Enteric Tube, Stoma or Indwelling Catheter, Enteric Contrast as designated per enteric contrast guidelines TRUE METRIX GLUCOSE TEST STRIP test strip CHECK FASTING BLOOD SUGAR DAILY FARXIGA 10 mg tablet TRULICITY 0.75 mg/0.5 mL pen injector ammonium lactate (LAC-HYDRIN) 12 % lotion Ammonium Lactate (Amlactin) 57 GM lotion Active 57 GM TP TWICE A DAY April 28, 2017 4:39pm clonazePAM (KLONOPIN) 0.5 mg tablet Take 1 tablet by mouth twice daily. enalapril (VASOTEC) 10 mg tablet Take 1 tablet by mouth once daily. lamoTRIgine (LAMICTAL) 25 mg tablet Take 1 tablet by mouth every morning. lamoTRIgine (LAMICTAL) 100 mg tablet Take 1 tablet by mouth twice daily. risperiDONE (RISPERDAL) 1 mg tablet Take 1 tablet by mouth three times daily. buPROPion (WELLBUTRIN) 75 mg tablet Take 75 mg by mouth twice daily. fluvoxaMINE (LUVOX) 100 mg tablet Take 1 tablet by mouth twice daily. hydrOXYzine pamoate (VISTARIL) 50 mg capsule Take 1 capsule by mouth twice daily. fluticasone (FLONASE) 50 mcg/actuation nasal spray Use 2 Sprays in each nostril once daily. QUEtiapine (SEROQUEL) 200 mg tablet Take 100 mg by mouth twice daily. Cholecalciferol, Vitamin D3, (VITAMIN D-3) 2,000 unit cap Take by mouth. oxybutynin (DITROPAN) 5 mg tablet Take 5 mg by mouth twice daily. diphenhydrAMINE (BANOPHEN) 50 mg capsule Take 50 mg by mouth every 6 hours as needed. montelukast (SINGULAIR) 10 mg tablet Take 10 mg by mouth daily at bedtime. benzonatate (TESSALON PERLES) 100 mg capsule Take 2 capsules by mouth three times daily as needed. risperidone (RISPERDAL) 1 mg ORAL Tab Take by mouth. enalapril (VASOTEC) 5 mg ORAL Tab Take one(1) tablet BID LAMICTAL 25 MG TAB 1 tablets at 8am,2 tablets at 11am,2 tablets at 4pm,4 tablets at 8pm DDAVP 0.2MG TABLET 3 tablets at bedtime WELLBUTRIN 75MG TABLET 1 tablet twice a day LUVOX 50MG TABLET Take one(1) tablet two(2) times daily. No current facility-administered medications for this visit. ? ? FAMILY HISTORY: FAMILY HISTORY Adopted: Yes REVIEW OF SYSTEMS: Please see attestation by Dr. Palacios. PHYSICAL EXAM: There were no vitals taken for this visit. There is no height or weight on file to calculate BSA. General: In no acute distress, comfortable HEENT: Normocephalic, atraumatic Please see attestation LABS: PATHOLOGY: 05/28/23 STM AFP <1.8 HCG 120 LDH 397 May 14, 2023 CT abdomen and pelvis: FINDINGS: The visualized lung bases are unremarkable. The visualized portions of the heart are within normal limits. Normal liver. Normal gallbladder and extrahepatic biliary system. Normal spleen. Normal pancreas. Normal bilateral adrenal glands. Irregular appearance of both kidneys. Findings are suggestive of multiple bilateral renal cysts. Correlation with ultrasound is recommended. There is a 3.7 mm nonobstructive calculus in the lower pole of the left kidney. There is a small hiatal hernia. Normal small intestine. Normal colon. The appendix is visualized and appears normal. Normal abdominal aorta. Normal inferior vena cava. There is retroperitoneal lymphadenopathy with enlarged nodes greater than 10-15mm in the short axis. Normal urinary bladder. Normal abdominal wall. Minimal anterior listhesis of L5 on S1 secondary to spondylolysis of the pars interarticularis of the L5 vertebrae. IMPRESSION: Diffuse enlargement of retroperitoneal lymphadenopathy. Lymphoma should be ruled out. Nonobstructive S in the lower pole calyx of the left kidney. Heterogeneous appearance of both kidneys suggestive of multiple bilateral renal cysts. May 26, 2023 testicular ultrasound: FINDINGS: RIGHT TESTICLE: Right testicle is heterogeneous with what appear to be multiple masses replacing the normal parenchyma. Normal arterial flow present in the testicle with monophasic waveforms. The right testicle measures 5.9 x 4.3 x 3.4 cm. LEFT TESTICLE: Unremarkable. Normal in size and echotexture. No focal lesion. Normal arterial flow present in the testicle with monophasic waveforms. EPIDIDYMIDES: Small left epididymal cyst. Normal color Doppler flow pattern in the epididymis. SCROTUM: Small right hydrocele. No varicocele. IMPRESSION: 1. Heterogeneous right testicle with multiple masses. 2. Normal left testicle. 3. Small left epididymal cyst. June 03, 2023 CT chest: FINDINGS: LUNGS, PLEURA AND LARGE AIRWAYS: There is mild atelectasis in the lingula. Lungs appear otherwise clear. No pleural effusions are noted. No pleural effusion or thickening. No pneumothorax. THYROID: No thyroid lesions. HEART AND PERICARDIUM: Heart size is normal. There is a small pericardial effusion. CORONARY ARTERIES: Coronary artery calcification VESSELS: Thoracic aorta is not dilated. MEDIASTINUM AND SHYAM: No mediastinal or hilar adenopathy. Esophagus is unremarkable. No hiatal hernia. UPPER ABDOMEN: The kidneys appear lobular nature bilaterally possible underlying cysts difficult to evaluate without IV contrast. Extensive retroperitoneal lymphadenopathy is noted also seen on previous abdominal CT which may be related to history of testicular cancer. BONES: No suspicious lytic or blastic abnormality. ASSESSMENT: 32 year old male with past medical history of autism, hypertension, pre-diabetes and stage III CKD presents today for evaluation of recent metastatic testicular cancer. Patient was recently diagnosedwith testicular cancer metastatic to retroperitoneal lymph nodes. CT guided biopsy was performed which demonstrated metastatic germ cell tumor consistent with seminoma. AFP <1.8, HCG 120 and LDH 397. Testicular ultrasound from May 26 revealed heterogenous right testicle with] multiple masses with normal left testicle and small left epidymal cyst. CT Chest noted extensive retroperitoneal lymphadenopathy. CT abdomen and pelvis demonstrated Diffuse enlargement of retroperitoneal lymphadenopathy. Management was discussed by Dr. Palacios with Mr Palacios and family. The chemotherapy regimen was discussed. Sperm banking was discussed for fertility preservation but Mr. Palacios and family denied the need. - Repeat Staging Imaging ordered - Chemotherapy treatment plan ordered to be started by July 14 - Arrangements will be made to provide chemotherapy management nearby Patient seen with Genitourinary Oncology staff, Dr. Palacios. Attestation to follow. Greta Ledezma, PGY-4 Hematology/Oncology Fellow [facility] Addendum: I saw and examined Paul Palacios with oncology fellow Dr Greta Ledezma MD, Hematology/Oncology Fellow, and I agree with the findings in her note which I have reviewed and which reflects our findings and plan. Mr. Palacios's situation is complicated and we do not have ideal treatment options. Normally we would perform a radical orchiectomy and then treat with chemotherapy using bleomycin etoposide and cisplatin or etoposide and cisplatin without bleomycin. However, given his chronic renal disease, giving him cisplatin would put him at high risk of renal failure and requiring hemodialysis. Given his other medical conditions, I do not think that cisplatin this chemotherapy is the best option for him. Wecertainly can give him bleomycin with his renal function because there would be a high risk of pneumonitis and pulmonary fibrosis, which can be fatal. Given the bulk of his disease and the symptomatic nature of it, I am not keen to recommend surgery prior to systemic therapy but rather would favor starting with systemic therapy now. He has a needle biopsy consistent with seminoma and I would treat him as such. I recommended 4 cycles of chemotherapy using carboplatinum and etoposide. I met with pharmacy to develop an appropriate dosing plan since this is an atypical regimen. I explained to thepatient and his family that carboplatinum is less effective than cisplatin and that I am recommending it because I think it is much safer for him. We discussed sperm banking and he and his family expressed no interest in fertility preservation. He wants to get treated closer to home so I am referring him to see Dr. Hardik Israel in [place]. Goal of treatment is cure. Medical Decision Making: Problems: Moderate: New problem with uncertain prognosis Data: Unique test result(s) reviewed: 3+ Unique test(s) ordered: 2 Medical Decision Making Level: 4 - Moderate Alexus Palacios M.D. Urologic Oncology Program Department of Hematology and Medical Oncology [facility] [phone] 06/30/2023 documented in this encounterProtestant Hospital08-11-2023 History of Present illness Narrative* Neil Barriga MD - 06/27/2023 2:30 PM EDT PATIENT INFO: Paul Palacios 32 year old REFERRING M.D.: No referring provider defined for this encounter. UROLOGY DIAGNOSES: Malignant neoplasm of descended right testis (hcc) (primary encounter diagnosis) Retroperitoneal lymphadenopathy Consultation requested by Dr Guardado referred for an opinion regarding Testicular CA My final recommendations will be communicated back to the requesting physician by way of shared Medical record orletter to requesting physician via US mail. CHIEF COMPLAINT: metastatic testicular cancer HPI: 32-year-old male with Past medical history notable for autism, hypertension, morbid obesity, prediabetes, and stage III chronic kidney disease since teens on conservative management. 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 05/28/23 STM AFP <1.8 HCG 120 LDH 397 May 14, 2023 CT abdomen and pelvis: FINDINGS: The visualized lung bases are unremarkable. The visualized portions of the heart are within normal limits. Normal liver. Normal gallbladder and extrahepatic biliary system. Normal spleen. Normal pancreas. Normal bilateral adrenal glands. Irregular appearance of both kidneys. Findings are suggestive of multiple bilateral renal cysts. Correlation with ultrasound is recommended. There is a 3.7 mm nonobstructive calculus in the lower pole of the left kidney. There is a small hiatal hernia. Normal small intestine. Normal colon. The appendix is visualized and appears normal. Normal abdominal aorta. Normal inferior vena cava. There is retroperitoneal lymphadenopathy with enlarged nodes greater than 10-15mm in the short axis. Normal urinary bladder. Normal abdominal wall. Minimal anterior listhesis of L5 on S1 secondary to spondylolysis of the pars interarticularis of the L5 vertebrae. IMPRESSION: Diffuse enlargement of retroperitoneal lymphadenopathy. Lymphoma should be ruled out. Nonobstructive S in the lower pole calyx of the left kidney. Heterogeneous appearance of both kidneys suggestive of multiple bilateral renal cysts. May 26, 2023 testicular ultrasound: FINDINGS: RIGHT TESTICLE: Right testicle is heterogeneous with what appear to be multiple masses replacing the normal parenchyma. Normal arterial flow present in the testicle with monophasic waveforms. The right testicle measures 5.9 x 4.3 x 3.4 cm. LEFT TESTICLE: Unremarkable. Normal in size and echotexture. No focal lesion. Normal arterial flow present in the testicle with monophasic waveforms. EPIDIDYMIDES: Small left epididymal cyst. Normal color Doppler flow pattern in the epididymis. SCROTUM: Small right hydrocele. No varicocele. IMPRESSION: 1. Heterogeneous right testicle with multiple masses. 2. Normal left testicle. 3. Small left epididymal cyst. June 03, 2023 CT chest: FINDINGS: LUNGS, PLEURA AND LARGE AIRWAYS: There is mild atelectasis in the lingula. Lungs appear otherwise clear. No pleural effusions are noted. No pleural effusion or thickening. No pneumothorax. THYROID: No thyroid lesions. HEART AND PERICARDIUM: Heart size is normal. There is a small pericardial effusion. CORONARY ARTERIES: Coronary artery calcification VESSELS: Thoracic aorta is not dilated. MEDIASTINUM AND SHYAM: No mediastinal or hilar adenopathy. Esophagus is unremarkable. No hiatal hernia. UPPER ABDOMEN: The kidneys appear lobular nature bilaterally possible underlying cysts difficult to evaluate without IV contrast. Extensive retroperitoneal lymphadenopathy is noted also seen on previous abdominal CT which may be related to history of testicular cancer. BONES: No suspicious lytic or blastic abnormality. Patient denies dysuria and gross hematuria. Patient denies fever, chills, rigors, nausea, vomiting and malaise. Patient denies abdominal and flank pain. HISTORY: HPI: (determine 4 of 8) 1-Duration: 2022 2-Location: testicle 3-Severity: N/A 4-Quality: Not applicable 5-Context: Imaging 6-Timing: N/A 7-Modifying factors: 8-Associated signs & symptoms: PAST MEDICAL HISTORY: reviewed by Jen Richardson June 27, 2023 PAST MEDICAL HISTORY Diagnosis Date Other specified pervasive developmental disorders, current or active state PDD Renal failure, unspecified Unspecified intellectual disabilities borderline IQ 79 PAST SURGICAL HISTORY: reviewed by Jen Richardson June 27, 2023 SOCIAL HISTORY: reviewed by Jen Richardson June 27, 2023 Social History Tobacco Use Smoking status: Never Smokeless tobacco: Never Substance Use Topics Alcohol use: Never Drug use: Never REVIEW OF SYSTEMS: PAIN ASSESSMENT: Negative for pain, history of chronic pain, or current treatment for a chronic pain condition. GENERAL: No fever, chills, weight loss, or fatigue. HEAD & NECK: No blurred vision or Sjogren's syndrome CARDIOVASCULAR: NO CHEST PAIN, PALPITATIONS, ANKLE EDEMA RESPIRATORY: No chronic cough, wheezing, dyspnea, hemoptysis. GI: No nausea, vomiting, or diarrhea MUSCULOSKELETAL: NO CHRONIC BACK PAIN, ARTHRITIS, CHRONIC NECK PAIN SKIN: NO VARICOSE VEINS, RASH, ABNORMAL ITCHING BLOOD/LYMPHATIC: No easy bleeding, easy bruising, transfusion Hx NEUROLOGICAL: NO HEADACHES, NUMBNESS, SEIZURES, STROKE PSYCHIATRIC: No depression or inordinate anxiety ENDOCRINE: Negative for cold or heat intolerance, polyuria, polydipsia and goiter GENITOURINARY: See HPI PHYSICAL EXAM: There were no vitals taken for this visit. GENERAL: WNL nutrition, no deformities, healthy appearing HEAD & NECK: No masses, adenopathy, icterus. RESP: NL effort, no retractions or purse-lip breathing. CV: No extremity swelling, varices, edema, pallor, erythema ABDOMEN: Soft, nontender, nondistended, no masses. HERNIAS: None SKIN/LYMPH: No rash, lesions NEURO/PSYCH: No signs of depression, anxiety, or agitation MUSCULOSKELETAL: Spine range of motion normal. Muscular strength intact, No joint swelling, deformity, or tenderness EXTREMITIES: Extremities normal. No deformities, edema, clubbing or skin discoloration. GENITOURINARY: No scrotal lesions, cysts, rashes.,+ right testis mass Urethra & meatus normal size & position w/o lesion or discharge, Penis w/o plaques, lesions, masses, or deformities, I ORDERED A URINALYSIS: RESULTS FOLLOWS see laboratory report DATA and/OR LABS TO BE REVIEWED: (Simple=1 data point; Complex= 2 or more) No results found for: PSA No results found for: PSAPER Creatinine (mg/dL) Date Value 01/02/2022 2.09 02/22/2014 1.75 09/02/2007 1.5 05/19/2006 1.4 04/22/2005 1.4 Hematocrit (%) Date Value 09/02/2007 40.6 05/19/2006 43.5 No results found for: TESTOST Additional data reviewed: radiology and labs RADIOLOGY: I personally reviewed the patient's films and critical findings were see reports Further work-up required: Yes MEDICAL DECISION MAKING: IMPRESSION: (Diagnostic Possibilities) Right testicular mass Retroperitoneal lymphadenopathy PLAN: (Management Options) Imaging suspicious for right testicular cancer with metastasis. I reccomended right orchiectomy. Risks of surgery include bleeding, infection, pain, damage to other tissues, blood clots in the legs or lungs. Unique risks of surgery include infertility issues, and hypogonadism were explained. The role for sperm banking was discussed. The options for placement of a testicular prosthesis at the time of surgery was discussed as well. I also discussed the small chance of the mass being benign. Will arrange right orchiectomy and referral to Oncology Disease Specificity: Acuity: Chronic Anatomic Site: Testes, Laterality: Right Underlying Condition/Causal Agent: Primary Associated Conditions/Manifestations: N/A Scribe Attestation: By signing my name below, Bassam Rosenthal, attest that this documentation has been prepared under the direction and in the presence of Neil Barriga MD. Electronically Signed:fatuma Guillen, June 27, 2023 3:01 PM Provider Attestation: Neil Rosenthal MD, personally performed the services described in this documentation. All medical record entries made by the cherylibwillow were at my direction and in my presence. I have reviewed the chart and discharge instructions (if applicable) and agree that the record reflects my personal performance and is accurate and complete. Neil Barriga MD June 27, 2023 3:08 PM documented in this encounterProtestant Hospital06-28-2023 Discharge summary Author Mahad Lim [facility] May 14, 2023 11:48am Note Date/Time May 14, 2023 8:36 am [facility] Medical Records Department [address] [place] [address] Emergency Department Summary 05/14/23 MR#: [id number] Acct: [id number] Name: DANN PALACIOS Rep #:[id number] : 1990 32 From: Mahad Reyna PCP: Dr. Floyd Guardado MD Status:RE G ER Location: ED HPI History of Present Illness Chief Complaint: Flank Pain Informant: patient and other Narrative Narrative: Autistic patient [facility] with caregiver [facility] nontraumatic left flankpain since yesterday. No nausea or vomiting. No radicular symptoms. No fevers. History of stage III chronic kidney disease with reported nonfunctioning single kidney followed by Dr. Valderrama. Last follow-up 3 weeks ago. Denies history of kidney stones. States had mild symptoms previously however not significant. Denies any decreased urine output. Allergies to Keflex. Prior similar symptoms: No PFSH PFSH Medical History (Updated 05/14/23 @ 11:[address] Mahad Lim DO) Acute on chronic renal failure Autism Cellulitis of right lower extremity Morbid obesity with BMI of 40.0-44.9, adult mrdd Prediabetes Renal failure Sebaceous cyst Severe sepsis Home Medications acetaminophen 500 mg tablet 1,000 mg PO Q4H PRN Pain 04/28/17 [History Last Taken Unknown] ammonium lactate 12 % lotion (AmLactin) 57 g TP BID 04/28/17 [History Last Taken Unknown] bupropion HCl 75 mg tablet 75 mg PO BID 04/28/17 [History Last Taken Unknown] cholecalciferol (vitamin D3) 50 mcg (2,000 unit) capsule (Vitamin D3) 2,000 unitPO DAILY 04/28/17 [History Last Taken Unknown] fluticasone propionate 50 mcg/actuation blister powder for inhalation (Flovent Diskus) 50 mcg inhalation DAILY 04/28/17 [History Last Taken Unknown] fluvoxamine 50 mg tablet 100 mg PO BID 04/28/17 [History Last Taken Unknown] montelukast 10 mg tablet (Singulair) 10 mg PO QHS 04/28/17 [History Last Taken Unknown] oxybutynin chloride 5 mg tablet 5 mg PO BID 04/28/17 [History Last Taken Unknown] risperidone 1 mg tablet 1 mg PO 4X/DAY 04/28/17 [History Last Taken Unknown] clonazepam 0.5 mg tablet 1 tab PO BID 06/04/22 [History Last Taken Unknown] enalapril maleate 10 mg tablet 10 mg PO DAILY 06/04/22 [History Last Taken Unknown] glimepiride 1 mg tablet 1 mg PO DAILY #30 tabs 06/04/22 [Rx Last Taken Unknown] lamotrigine 100 mg tablet 1 tab PO BID 06/04/22 [History Last Taken Unknown] lamotrigine 25 mg tablet 1 tab PO DAILY 06/04/22 [History Last Taken Unknown] metformin 500 mg tablet 500 mg PO DAILY #30 tabs 06/04/22 [Rx Last Taken Unknown] quetiapine 200 mg tablet 1 tab PO BID 06/04/22 [History Last Taken Unknown] hydrocodone-acetaminophen 5-325mg 5mg-325mg 1 tab PO Q6H PRN PRN Pain 3 days #12TABLETS 05/14/23 [Rx Last Taken Unknown] Allergy/AdvReac Type Severity Reaction Status Date / Time cephalexin [From Keflex] Allergy Rash Verified 05/14/23 08:15 Surgical History History of excision of mass Social History Smoking Status: Never smoker ROS ROS ED Constitutional Constitutional ED: Denies chills, fever(s) or sweats Eyes Eyes: Denies change in vision ENT ENT ED: Denies dysphagia or sore throat Cardiovascular Cardiovascular: Denies chest pain, leg edema, palpitations or racing heartbeat Respiratory/Chest Respiratory/Chest: Denies cough, dyspnea or dyspnea on exertion Gastrointestinal Gastrointestinal: Denies abdominal pain, diarrhea, nausea or vomiting Genitourinary Genitourinary ED: Denies dysuria, hematuria or urinary frequency Musculoskeletal Musculoskeletal: Reports back pain; Denies extremity pain or neck pain Integumentary Denies rash or wounds Neurologic Neurologic: Denies headache(s), paresthesias or weakness EXAM Physical Exam Const Vital Signs: 05/14/23 08:12 05/14/23 10:10 Temperature 98 F Temperature Source Temporal Pulse Rate 116 H 78 Respiratory Rate 22 H 16 Blood Pressure 175/107 H Blood Pressure Mean 129 Pulse Ox 96 100 Oxygen Delivery Method Room Air Room Air Positive well nourished and well developed General Appearance ED: well developed and NAD HEENT Reports moist mucous membranes normocephalic and atraumatic Eyes PERRL, EOMs intact bilaterally and conjunctivae normal General Eye ED: Yes normal appearance of both eyes Neck no lymphadenopathy and supple General: Negative for tenderness Chest Wall Chest: Negative for tenderness Resp normal respiratory effort and normal air movement Effort and Inspection: symmetric chest movement; Negative for respiratory distress Cardio regular rhythm and no murmurs Rate: tachycardic Peripheral Pulses: pulses 2+ throughout GI normal to inspection, nondistended, normoactive bowel sounds and non-tender Palpation: Negative for guarding or rebound tenderness present Back/Spine no CVA tenderness and no thoracic nor lumbar tenderness Extremity normal to inspection General Extremety ED: Negative for edema or tenderness General Extremity: Negative for edema Neuro oriented x3 and no sensory deficits noted Sensorium / Orientation: awake and alert Skin no rashes or lesions noted and no wounds MDM MDM MDM Narrative Medical decision making narrative: Interventions / MDM: Differential diagnosis: Kidney stone, musculoskeletal, retroperitoneal lymphadenopathy/mass Diagnosis considered but do not suspect: N/A My EKG interpretation: N/A Imaging independently reviewed and interpreted by myself: CT scan abdomen pelvis: Multiple enlarged retroperitoneal adenopathy pathognomonic for lymphoma concerns and discussion with radiologist. External documents reviewed: N/A Test considered but not ordered:N/A ED course: Patient tachycardic uncomfortable renal stone protocol initiated morphine and Zofran fluids started. Avoid NSAIDs due to his chronic kidney disease. Laboratory studies were ordered urine ordered CT scan ordered. CT scan results concerning for lymphoma. This was discussed with radiologist. 1015: I did reach out to heme-onc on-call Dr. Vera, requests to add LDH and LFT. He was made an appointment for 3 PM tomorrow in the office for discussion for evaluation and planned biopsy. Urine leukocytes and slight hematuria culture sent he is asymptomatic. Discharge prescription for Jesse to use as needed. Outpatient follow-up as discussed tomorrow. Re-evaluation: stable Disposition discussed with patient/family/significant other: Patient and caregiver Case discussed with consulting clinician: Radiologist and oncologist This note was generated with [employer] dictation software. It may contain incorrectwords, spelling, and punctuation that were not noted in checking the note beforesigning. Lab Data Attestation: I reviewed the patient's lab results. Labs: Laboratory Results - last 24 hr 05/14/23 05/14/23 08:35 10:45 WBC 8.6 RBC 4.55 L Hgb 13.8 Hct 39.6 L MCV 87.0 MCH 30.3 MCHC 34.8 RDW Std Deviation 44.9 H RDW Coeff of Judith 14.3 Plt Count 205 MPV 8.5 Immature Gran % (Auto) 0.400 Neut % (Auto) 83.7 H Lymph % (Auto) 4.6 L Coleman % (Auto) 8.5 Eos % (Auto) 2.3 Baso % (Auto) 0.5 Absolute Neuts (auto) 7.2 Absolute Lymphs (auto) 0.39 L Nucleated RBC % 0 Sodium 139 Potassium 3.8 Chloride 109 H Carbon Dioxide 23.0 Anion Gap 7 BUN 39 H Creatinine 3.56 H Estim Creat Clear Calc 32.70 Est GFR (MDRD) Af Amer 26 L Est GFR (MDRD) Non-Af 21 L BUN/Creatinine Ratio 11.0 Glucose 131 H Calcium 12.3 H Total Bilirubin 0.60 Direct Bilirubin 0.23 AST 33 ALT 45 Alkaline Phosphatase 129 H Lactate Dehydrogenase 526 H Total Protein 7.3 Albumin 3.5 Globulin 3.8 Urine Color Yellow Urine Clarity Clear Urine pH 6.0 Ur Specific [place] 1.010 Urine Protein 30 H Urine Glucose (UA) 250 H Urine Ketones Negative Urine Occult Blood 10 H Urine Nitrite Negative Urine Bilirubin Negative Urine Urobilinogen Normal Ur Leukocyte Esterase 25 H Urine RBC 0 SEEN Urine WBC 0-5 SEEN Ur Squamous Epith Cells 0 SEEN Urine Bacteria 0 SEEN Urine Mucus 0 SEEN Radiography Diagnostic Testing: Clinical Impression(s) from Imaging Studies Abdomen/Pelvis CT 05/14/23 08:31 IMPRESSION: Diffuse enlargement of retroperitoneal lymphadenopathy. Lymphoma should be ruled out. Nonobstructive S in the lower pole calyx of the left kidney. Heterogeneous appearance of both kidneys suggestive of multiple bilateral renal cysts. Correlation with ultrasound is recommended. Electronically Signed: Alen Figueroa MD at 9:51 EDT , Discharge Plan Triage Chief Complaint: Flank Pain ED Provider: Mahad Lim Dx/Rx/DC Orders Clinical Impression: Lymphoma, CKD (chronic kidney disease) stage 3, GFR 30-59 ml/min, Left nephrolithiasis, Hematuria Instructions: ED Chronic Kidney Disease (CKD), ED Hematuria, ED Tumor, Uncertain Cause Prescriptions: New hydrocodone-acetaminophen [hydrocodone-acetaminophen] 5-325 mg tablet 1 tab PO Q6H PRN PRN (Reason: Pain) 3 Days Qty: 12 0RF No Action Flovent Diskus 50 MCG blister with device 50 mcg inhalation DAILY ammonium lactate [AmLactin] 57 GM lotion 57 g TP BID acetaminophen 500 MG tablet 1,000 mg PO Q4H PRN (Reason: Pain) bupropion HCl 75 MG tablet 75 mg PO BID montelukast [Singulair] 10 MG tablet 10 mg PO QHS fluvoxamine 50 MG tablet 100 mg PO BID oxybutynin chloride 5 MG tablet 5 mg PO BID risperidone 1 MG tablet 1 mg PO 4X/DAY cholecalciferol (vitamin D3) [Vitamin D3] 2,000 UNIT capsule 2,000 unit PO DAILY enalapril maleate 10 mg Tablet 10 mg PO DAILY clonazepam 0.5 mg tablet 1 tab PO BID quetiapine 200 mg tablet 1 tab PO BID lamotrigine 25 mg tablet 1 tab PO DAILY Rx Instructions: AM lamotrigine 100 mg tablet 1 tab PO BID metformin 500 mg tablet 500 mg PO DAILY Qty: 30 0RF glimepiride 1 mg tablet 1 mg PO DAILY Qty: 30 0RF Primary Care Provider: Floyd Guardado Referrals: Floyd Guardado MD [Primary Care Provider] - Rosa Vera MD [Med Staff - Active Staff] - Keep Iain appointment Activity Restrictions/Additional Instructions: Your CT scan concerns for lymphoma. You will need a biopsy. Follow-up with at 3 PM tomorrow in the office. This will be coordinated. Use medication for pain as needed. Disposition Disposition: Home, Self Care What to do if you have Problems For any increased pain, shortness of breath, bleeding, nausea or vomiting, chestpain, or any unexpected problems, contact your Primary Care Provider. Call [facility] ([phone]) or report to the closest Emergency Room. Call 911 if necessary. 05/14/23 1148 <Electronically signed by Mahad Reyna> Cosigner Signature (if applicable): CC: Dr. Floyd Guardado MD; Dr. Rosa Vera MD ~ Signed [facility] Work Phone: [phone]) 399-507307-19-2022 History of Present illness Narrative* Matt Spangler APRN.ANESTHESIOLOGY PHYSICIAN - 06/04/2022 5:49 PM EDT Subjective HPI HPI Paul Palacios is a 31 year old male who presents today for CC of mid low back pain for 1 day, hurst to walk/bend over. Has tried nothing for relief. Risk factors hx of renal failure. Has also had increased thirst over past few days. Denies cp/sob. Denies urinary/bowel habit change, abd pain, fever, resh. .Patient presents with: Pain, Back: Pt presented with caregiver Hx kidney failure, excessive thirst x1 day PAST MEDICAL HISTORY Diagnosis Date Other specified pervasive developmental disorders, current or active state PDD Renal failure, unspecified Unspecified intellectual disabilities borderline IQ 79 ALLERGIES Keflex [Cephalexin] MEDICATIONS ammonium lactate (LAC-HYDRIN) 12 % lotion Ammonium Lactate (Amlactin) 57 GM lotion Active 57 GM TP TWICE A DAY April 28, 2017 4:39pm clonazePAM (KLONOPIN) 0.5 mg tablet Take 1 tablet by mouth twice daily. enalapril (VASOTEC) 10 mg tablet Take 1 tablet by mouth once daily. lamoTRIgine (LAMICTAL) 25 mg tablet Take 1 tablet by mouth every morning. lamoTRIgine (LAMICTAL) 100 mg tablet Take 1 tablet by mouth twice daily. risperiDONE (RISPERDAL) 1 mg tablet Take 1 tablet by mouth three times daily. buPROPion (WELLBUTRIN) 75 mg tablet Take 75 mg by mouth twice daily. hydrOXYzine pamoate (VISTARIL) 50 mg capsule Take 1 capsule by mouth twice daily. fluticasone (FLONASE) 50 mcg/actuation nasal spray Use 2 Sprays in each nostril once daily. QUEtiapine (SEROQUEL) 200 mg tablet Take 100 mg by mouth twice daily. Cholecalciferol, Vitamin D3, (VITAMIN D-3) 2,000 unit cap Take by mouth. oxybutynin (DITROPAN) 5 mg tablet Take 5 mg by mouth twice daily. montelukast (SINGULAIR) 10 mg tablet Take 10 mg by mouth daily at bedtime. risperidone (RISPERDAL) 1 mg ORAL Tab Take by mouth. LAMICTAL 25 MG TAB 1 tablets at 8am,2 tablets at 11am,2 tablets at 4pm,4 tablets at 8pm WELLBUTRIN 75MG TABLET 1 tablet twice a day LUVOX 50MG TABLET Take one(1) tablet two(2) times daily. fluvoxaMINE (LUVOX) 100 mg tablet Take 1 tablet by mouth twice daily. diphenhydrAMINE (BANOPHEN) 50 mg capsule Take 50 mg by mouth every 6 hours as needed. benzonatate (TESSALON PERLES) 100 mg capsule Take 2 capsules by mouth three times daily as needed. enalapril (VASOTEC) 5 mg ORAL Tab Take one(1) tablet BID DDAVP 0.2MG TABLET 3 tablets at bedtime FAMILY HISTORY Adopted: Yes Social History Tobacco Use Smoking status: Never Smoker Smokeless tobacco: Never Used Substance Use Topics Alcohol use: Never Drug use: Never ROS Objective Blood pressure 124/74, pulse (!) 125, temperature 36.7 C (98 F), resp. rate 24, weight 134.3 kg (296 lb), SpO2 97 %. Physical Exam Constitutional: General: He is not in acute distress. Appearance: Normal appearance. He is not toxic-appearing. Cardiovascular: Rate and Rhythm: Normal rate and regular rhythm. Heart sounds: Normal heart sounds. Pulmonary: Effort: Pulmonary effort is normal. Breath sounds: Normal breath sounds. Abdominal: General: Bowel sounds are normal. Palpations: Abdomen is soft. Tenderness: There is no abdominal tenderness. Skin: General: Skin is warm and dry. ASSESSMENT/PLAN: 1. Glucosuria - ICD9: 791.5, ICD10: R81 (primary diagnosis) nonfasting blood glucose >500, caregiver called patients pcp, wants to go to ER via pov. - GLUCOSE, BLOOD (POC) 2. Chronic midline low back pain without sciatica - ICD9: 724.2, 338.29, ICD10: M54.50, G89.29 otc medication discussed. Matt Spangler APRN.VALDO documented in this encounterProtestant Hospital04-04-2022 Miscellaneous Notes* Telephone Encounter - Margarita Gil APRN.CNP - 02/18/2022 11:59 AM EDT Speak with Tiffanie, She states that patient is not benefiting from the ATB. At this time ATB can be stopped. Letter printed, and will be picked up by Tiffanie. Letter placed with PSS registration on urgent care side. * Telephone Encounter - Marlena Ya RN - 02/18/2022 11:30 AM EDT Patient's Health Waste Duster, Tiffanie, calling to state patient was recently seen at [facility] and was prescribed Macrobid for a possible UTI but recent culture revealed patient did not need medication. Tiffanie reports patient has not started the Macrobid and due to Health Management regulations for patient, he requires an order to discontinue Macrobid. Asking if Urgent Care provider would provide the discontinuation order since they ordered it, or ifpatient would need to request this through his PCP? Please advise Tiffanie at [phone] Thank you. documented in this encounterProtestant Hospital04-03-2022 Miscellaneous Notes* Telephone Encounter - Connie Jiménez LPN - 02/17/2022 8:59 AM EDT auto fleet maintenance manager notified.Connie Jiménez LPN * Telephone Encounter - Connie Jiménez LPN - 02/17/2022 8:59 AM EDT ----- Message from Maria D Jolley APRN.ANESTHESIOLOGY PHYSICIAN sent at 02/17/2022 8:18 AM EDT ----- Urine culture only grew normal urogenital bacteria. He may continue to take antibiotic if it has been helpful. If not improving, recommend follow up with PCP. Maria D Jolley CNP * Telephone Encounter - Kia Wilkins - 02/17/2022 8:57 AM EDT Left message for patient to return call. Kia Wilkins * Telephone Encounter - Kia Wilkins - 02/17/2022 8:56 AM EDT ----- Message from Maria D Jolley APRN.ANESTHESIOLOGY PHYSICIAN sent at 02/17/2022 8:18 AM EDT ----- Urine culture only grew normal urogenital bacteria. He may continue to take antibiotic if it has been helpful. If not improving, recommend follow up with PCP. Maria D Jolley CNP documented in this encounterProtestant Hospital03-31-2022 Instructions* Patient Instructions* Ck Gates APRN.VALDO - 02/14/2022 9:39 AM EDT URINARY TRACT INFECTION GENERAL INFORMATION: A urinary tract infection (UTI) is an infection of the bladder or kidneys. A bladder infection, called cystitis, is the more common type. If the infection travels up to the kidneys, it is called pyelonephritis. This can be more serious. UTIs are a common problem in women. Having sexual relations can leave a woman more susceptible to developing a UTI, but it is not sexually transmitted like gonorrhea. Some women have a problem with recurrent UTIs. INSTRUCTIONS: 1. Your doctor prescribed an antibiotic to treat the UTI. Take exactly as directed. Be sure to takeall the medication prescribed, even if your symptoms disappear. If you stop treatment early, the infection may not be fully treated and the symptoms could come back again. 2. Get plenty of rest. You may take acetaminophen for fever and aches. 3. Drink 6 to 8 glasses of fluids, especially water, every day. This helps wash out germs from yoururinary tract. Cranberry juice or other sources of vitamin C are also good for you. 4. Urinate often, as soon as you feel the urge. Empty your bladder completely. Urinate before and after you have sex. 5. Always wipe from front to back after going to the bathroom. This pushes germs away from your bladder, rather than towards it. 6. Showers are better than baths, and you should wash the genital area daily. Avoid bubble bath or bath oils if you do take a bath. 7. Wear underwear and pantyhose with a cotton crotch. CONTACT YOUR DOCTOR: 1. You have a temperature over 102F (38.8C) after 48 hours on medication. 2. You notice blood in your urine. 3. Your symptoms don't improve in 2 days. 4. You develop nausea, vomiting, diarrhea, or a rash. 5. You develop new or unexplained symptoms. These may be related to the medication you are taking. 6. Your symptoms return after you finish treatment. RETURN TO THE EMERGENCY DEPARTMENT IF: You develop vomiting and can't keep your medication or fluids down. documented in this encounterProtestant Hospital03-31-2022 History of Present illness Narrative* Ck Gates APRN.CNP - 02/14/2022 9:31 AM EDT Subjective HPI Nontoxic-appearing male presents urgent care chief complaint possible UTI. Duration of symptoms today. Associated symptoms behavior disturbances. Patient caregiver states patient has had multiple UTIs. This is how he presents. Presents today for urinalysis. Denies any other symptoms. No OTC medication use. Patient denies any pain. Denies any fever body aches chills nausea vomiting abdominal pain testicular pain swelling scrotal swelling penile discharge flank pain. Past medical history prescription medication use allergies reviewed. .Patient presents with: Follow Up: Here with care provider f/u joanne, denied current sxs PAST MEDICAL HISTORY Diagnosis Date Other specified pervasive developmental disorders, current or active state PDD Renal failure, unspecified Unspecified intellectual disabilities borderline IQ 79 ALLERGIES Keflex [Cephalexin] MEDICATIONS ammonium lactate (LAC-HYDRIN) 12 % lotion Ammonium Lactate (Amlactin) 57 GM lotion Active 57 GM TP TWICE A DAY April 28, 2017 4:39pm clonazePAM (KLONOPIN) 0.5 mg tablet Take 1 tablet by mouth twice daily. enalapril (VASOTEC) 10 mg tablet Take 1 tablet by mouth once daily. lamoTRIgine (LAMICTAL) 25 mg tablet Take 1 tablet by mouth every morning. lamoTRIgine (LAMICTAL) 100 mg tablet Take 1 tablet by mouth twice daily. risperiDONE (RISPERDAL) 1 mg tablet Take 1 tablet by mouth three times daily. buPROPion (WELLBUTRIN) 75 mg tablet Take 75 mg by mouth twice daily. fluvoxaMINE (LUVOX) 100 mg tablet Take 1 tablet by mouth twice daily. hydrOXYzine pamoate (VISTARIL) 50 mg capsule Take 1 capsule by mouth twice daily. fluticasone (FLONASE) 50 mcg/actuation nasal spray Use 2 Sprays in each nostril once daily. QUEtiapine (SEROQUEL) 200 mg tablet Take 100 mg by mouth twice daily. Cholecalciferol, Vitamin D3, (VITAMIN D-3) 2,000 unit cap Take by mouth. oxybutynin (DITROPAN) 5 mg tablet Take 5 mg by mouth twice daily. diphenhydrAMINE (BANOPHEN) 50 mg capsule Take 50 mg by mouth every 6 hours as needed. montelukast (SINGULAIR) 10 mg tablet Take 10 mg by mouth daily at bedtime. LAMICTAL 25 MG TAB 1 tablets at 8am,2 tablets at 11am,2 tablets at 4pm,4 tablets at 8pm WELLBUTRIN 75MG TABLET 1 tablet twice a day LUVOX 50MG TABLET Take one(1) tablet two(2) times daily. benzonatate (TESSALON PERLES) 100 mg capsule Take 2 capsules by mouth three times daily as needed. risperidone (RISPERDAL) 1 mg ORAL Tab 1tab @ 7am, 1tab @11am 1@4pm 1@8pm enalapril (VASOTEC) 5 mg ORAL Tab Take one(1) tablet BID DDAVP 0.2MG TABLET 3 tablets at bedtime FAMILY HISTORY Adopted: Yes Social History Tobacco Use Smoking status: Never Smoker Smokeless tobacco: Never Used Substance Use Topics Alcohol use: Never Drug use: Never BP 132/78 Pulse (!) 132 Temp 36.4 C (97.6 F) Resp 20 Wt (!) 138.1 kg (304 lb 6.4 oz) BmK000% Hr 87 Review of Systems Constitutional: Negative for chills, fever and malaise/fatigue. HENT: Negative for congestion, ear discharge, ear pain, sinus pain and sore throat. Eyes: Negative for blurred vision, pain, discharge and redness. Respiratory: Negative for cough, hemoptysis, sputum production, shortness of breath, wheezing and stridor. Cardiovascular: Negative for chest pain. Gastrointestinal: Negative for abdominal pain, diarrhea, nausea and vomiting. Genitourinary: Negative. Musculoskeletal: Negative for myalgias. Skin: Negative for itching and rash. Neurological: Negative for dizziness and headaches. Objective Physical Exam Constitutional: General: He is not in acute distress. Appearance: He is not diaphoretic. HENT: Head: Normocephalic. Nose: Nose normal. Mouth/Throat: Mouth: Mucous membranes are moist. Pharynx: Oropharynx is clear. No oropharyngeal exudate or posterior oropharyngeal erythema. Eyes: Conjunctiva/sclera: Conjunctivae normal. Pupils: Pupils are equal, round, and reactive to light. Cardiovascular: Rate and Rhythm: Normal rate and regular rhythm. Heart sounds: Normal heart sounds. Pulmonary: Effort: Pulmonary effort is normal. No tachypnea, accessory muscle usage or respiratory distress. Breath sounds: Normal breath sounds. No stridor. Abdominal: Palpations: Abdomen is soft. Tenderness: There is no abdominal tenderness. There is no right CVA tenderness or left CVA tenderness. Musculoskeletal: Cervical back: Normal range of motion and neck supple. No rigidity or tenderness. Lymphadenopathy: Cervical: No cervical adenopathy. Skin: General: Skin is warm and dry. Neurological: Mental Status: He is alert and oriented to person, place, and time. ASSESSMENT/PLAN: 1. Dysuria - ICD9: 788.1, ICD10: R30.0 - UA DIP, URINE (POC) Leukocytes and nitrites blood noted on urinalysis. Patient placed on Macrobid. Has tolerated this antibiotic in the past. Urine cultures pending. Red flags discussed. Patient was educated on supportive therapies. Patient will follow up with primary care provider as needed. Patient was instructed to immediately proceed to emergency room for any new, worsening, or symptoms lasting longer than anticipated. The patient's clinical presentation is otherwise unremarkable at this time. Based on exam and clinical finding, the patient is stable for discharge. Plan of care was discussed with patient. Patient verbalizes understanding and agrees to plan of care. This note was generated using [employer] software. It may contain errors in wording, punctuation, or spelling. Ck Gates APRN.VALDO [facility] of Present illness Narrative* Arabella Cummins RT(R) - 08/13/2021 12:00 PM EDT Radiology Service Progress Note PATIENT NAME: Paul Palacios DATE OF SERVICE: August 13, 2021 TIME: 11:55 AM PATIENT IDENTITY VERIFICATION COMPLETED USING TWO (2) IDENTIFIERS: Name and Date of confirmedby patient verbally. FALL SCREENING: Has the patient had 2 falls in the last year or 1 fall with injury or currently using an Ambulatory Assistive Device (Walker, Cane, Wheelchair, Crutches, etc.)? No PATIENT GENDER DATA: Male PATIENT RELEVANT IMPLANT DATA REVIEWED: Not Applicable RADIOLOGY DEPARTMENT: General X-ray: Exam(s) Completed: Lower Extremity X- Ray(s): Foot, Left and Wt. Bearing PERIPHERAL IV DATA: Not applicable SIGNED BY: RT Loyd(R) August 13, 2021 11:55 AM [facility] History of Past illness Narrative* Problem Noted Date Resolved Date Renal failure, unspecified 11/25/200205/27 Urinary tract infection, site not specified 06/200308/21/2016 documented as of this encounter (statuses as of 02/14/2022) [facility] Narrative* Problem Noted Date Resolved Date Renal failure, unspecified 11/25/200205/27 Urinary tract infection, site not specified 06/200308/21/2016 documented as of this encounter (statuses as of 02/17/2022) [address]09-2003 History of Past illness Narrative* Problem Noted Date Resolved Date Renal failure, unspecified 11/25/200205/27 Urinary tract infection, site not specified 06/200308/21/2016 documented as of this encounter (statuses as of 02/18/2022) [facility] of Past illness Narrative* Problem Noted Date Resolved Date Renal failure, unspecified 11/25/200205/27 Urinary tract infection, site not specified 06/200308/21/2016 documented as of this encounter (statuses as of 06/04/2022) [facility] of [facility] illness Narrative* Problem Noted Date Resolved Date Renal failure, unspecified 11/25/200205/27 Urinary tract infection, site not specified 06/200308/21/2016 documented as of this encounter (statuses as of 05/06/2023) [facility] Narrative* Problem Noted Date Diagnosed Date Resolved Date Renal failure, unspecified 11/25/2002 0 05/27/2006 Urinary tract infection, site not specified 11/24/2002 08/21/2016 documented as of this encounter (statuses as of 06/28/2023) [facility] Narrative* Problem Noted Date Diagnosed Date Resolved Date Renal failure, unspecified 11/25/2002 0 05/27/2006 Urinary tract infection, site not specified 11/24/2002 08/21/2016 documented as of this encounter (statuses as of 06/30/2023) [facility] Narrative* Problem Noted Date Diagnosed Date Resolved Date Renal failure, unspecified 11/25/2002 0 05/27/2006 Urinary tract infection, site not specified 11/24/2002 08/21/2016 documented as of this encounter (statuses as of 07/02/2023) [address]09-2003 History of Past illness Narrative* Problem Noted Date Diagnosed Date Resolved Date Renal failure, unspecified 11/25/2002 0 05/27/2006 Urinary tract infection, site not specified 11/24/2002 08/21/2016 documented as of this encounter (statuses as of 07/03/2023) [address]09-2003 History of Past illness Narrative* Problem Noted Date Diagnosed Date Resolved Date Renal failure, unspecified 11/25/2002 0 05/27/2006 Urinary tract infection, site not specified 11/24/2002 08/21/2016 documented as of this encounter (statuses as of 07/03/2023) [address]09-2003 History of Past illness Narrative* Problem Noted Date Diagnosed Date Resolved Date Renal failure, unspecified 11/25/2002 0 05/27/2006 Urinary tract infection, site not specified 11/24/2002 08/21/2016 documented as of this encounter (statuses as of 07/04/2023) [address]09-2003 History of Past illness Narrative* Problem Noted Date Diagnosed Date Resolved Date Renal failure, unspecified 11/25/2002 0 05/27/2006 Urinary tract infection, site not specified 11/24/2002 08/21/2016 documented as of this encounter (statuses as of 07/07/2023) [facility]arrative* Problem Noted Date Diagnosed Date Resolved Date Renal failure, unspecified 11/25/2002 0 05/27/2006 Urinary tract infection, site not specified 11/24/2002 08/21/2016 documented as of this encounter (statuses as of 07/08/2023) [facility] Narrative* Problem Noted Date Diagnosed Date Resolved Date Renal failure, unspecified 11/25/2002 0 05/27/2006 Urinary tract infection, site not specified 11/24/2002 08/21/2016 documented as of this encounter (statuses as of 07/08/2023) [facility]arrative* Problem Noted Date Diagnosed Date Resolved Date Renal failure, unspecified 11/25/2002 0 05/27/2006 Urinary tract infection, site not specified 11/24/2002 08/21/2016 documented as of this encounter (statuses as of 07/11/2023) [address]09-2003 History of Past illness Narrative* Problem Noted Date Diagnosed Date Resolved Date Renal failure, unspecified 11/25/2002 0 05/27/2006 Urinary tract infection, site not specified 11/24/2002 08/21/2016 documented as of this encounter (statuses as of 07/11/2023) [address]09-2003 History of Past illness Narrative* Problem Noted Date Diagnosed Date Resolved Date Renal failure, unspecified 11/25/2002 0 05/27/2006 Urinary tract infection, site not specified 11/24/2002 08/21/2016 documented as of this encounter (statuses as of 07/12/2023) [address]09-2003 History of Past illness Narrative* Problem Noted Date Diagnosed Date Resolved Date Renal failure, unspecified 11/25/2002 0 05/27/2006 Urinary tract infection, site not specified 11/24/2002 08/21/2016 documented as of this encounter (statuses as of 07/14/2023) [address]09-2003 History of Past illness Narrative* Problem Noted Date Diagnosed Date Resolved Date Renal failure, unspecified 11/25/2002 0 05/27/2006 Urinary tract infection, site not specified 11/24/2002 08/21/2016 documented as of this encounter (statuses as of 07/15/2023) [address]09-2003 History of Past illness Narrative* Problem Noted Date Diagnosed Date Resolved Date Renal failure, unspecified 11/25/2002 0 05/27/2006 Urinary tract infection, site not specified 11/24/2002 08/21/2016 documented as of this encounter (statuses as of 07/16/2023) [facility]* Problem Noted Date Diagnosed Date Resolved Date Renal failure, unspecified 11/25/2002 0 05/27/2006 Urinary tract infection, site not specified 11/24/2002 08/21/2016 documented as of this encounter (statuses as of 07/16/2023) [address]09-2003 History of Past illness Narrative* Problem Noted Date Diagnosed Date Resolved Date Renal failure, unspecified 11/25/2002 0 05/27/2006 Urinary tract infection, site not specified 11/24/2002 08/21/2016 documented as of this encounter (statuses as of 07/17/2023) [address]09-2003 History of Past illness Narrative* Problem Noted Date Diagnosed Date Resolved Date Renal failure, unspecified 11/25/2002 0 05/27/2006 Urinary tract infection, site not specified 11/24/2002 08/21/2016 documented as of this encounter (statuses as of 07/18/2023) [address]09-2003 History of Past illness Narrative* Problem Noted Date Diagnosed Date Resolved Date Renal failure, unspecified 11/25/2002 0 05/27/2006 Urinary tract infection, site not specified 11/24/2002 08/21/2016 documented as of this encounter (statuses as of 07/22/2023) [address]09-2003 History of Past illness Narrative* Problem Noted Date Diagnosed Date Resolved Date Renal failure, unspecified 11/25/2002 0 05/27/2006 Urinary tract infection, site not specified 11/24/2002 08/21/2016 documented as of this encounter (statuses as of 07/25/2023) [address]09-2003 History of Past illness Narrative* Problem Noted Date Diagnosed Date Resolved Date Renal failure, unspecified 11/25/2002 0 05/27/2006 Urinary tract infection, site not specified 11/24/2002 08/21/2016 documented as of this encounter (statuses as of 08/01/2023) [address]09-2003 History of Past illness Narrative* Problem Noted Date Diagnosed Date Resolved Date Renal failure, unspecified 11/25/2002 0 05/27/2006 Urinary tract infection, site not specified 11/24/2002 08/21/2016 documented as of this encounter (statuses as of 08/03/2023) [address]09-2003 History of Past illness Narrative* Problem Noted Date Diagnosed Date Resolved Date Renal failure, unspecified 11/25/2002 0 05/27/2006 Urinary tract infection, site not specified 11/24/2002 08/21/2016 documented as of this encounter (statuses as of 08/04/2023) [address]09-2003 History of Past illness Narrative* Problem Noted Date Diagnosed Date Resolved Date Renal failure, unspecified 11/25/2002 0 05/27/2006 Urinary tract infection, site not specified 11/24/2002 08/21/2016 documented as of this encounter (statuses as of 08/05/2023) [address]09-2003 History of Past illness Narrative* Problem Noted Date Diagnosed Date Resolved Date Renal failure, unspecified 11/25/2002 0 05/27/2006 Urinary tract infection, site not specified 11/24/2002 08/21/2016 documented as of this encounter (statuses as of 08/07/2023) [address]09-2003 History of Past illness Narrative* Problem Noted Date Diagnosed Date Resolved Date Renal failure, unspecified 11/25/2002 0 05/27/2006 Urinary tract infection, site not specified 11/24/2002 08/21/2016 documented as of this encounter (statuses as of 08/08/2023) [address]09-2003 History of Past illness Narrative* Problem Noted Date Diagnosed Date Resolved Date Renal failure, unspecified 11/25/2002 0 05/27/2006 Urinary tract infection, site not specified 11/24/2002 08/21/2016 documented as of this encounter (statuses as of 08/09/2023) [address]09-2003 History of Past illness Narrative* Problem Noted Date Diagnosed Date Resolved Date Renal failure, unspecified 11/25/2002 0 05/27/2006 Urinary tract infection, site not specified 11/24/2002 08/21/2016 documented as of this encounter (statuses as of 08/23/2023) [address]09-2003 History of Past illness Narrative* Problem Noted Date Diagnosed Date Resolved Date Renal failure, unspecified 11/25/2002 0 05/27/2006 Urinary tract infection, site not specified 11/24/2002 08/21/2016 documented as of this encounter (statuses as of 08/23/2023) [address]09-2003 History of Past illness Narrative* Problem Noted Date Diagnosed Date Resolved Date Renal failure, unspecified 11/25/2002 0 05/27/2006 Urinary tract infection, site not specified 11/24/2002 08/21/2016 documented as of this encounter (statuses as of 08/26/2023) [address]09-2003 History of Past illness Narrative* Problem Noted Date Diagnosed Date Resolved Date Renal failure, unspecified 11/25/2002 0 05/27/2006 Urinary tract infection, site not specified 11/24/2002 08/21/2016 documented as of this encounter (statuses as of 08/26/2023) [address]09-2003 History of Past illness Narrative* Problem Noted Date Diagnosed Date Resolved Date Renal failure, unspecified 11/25/2002 0 05/27/2006 Urinary tract infection, site not specified 11/24/2002 08/21/2016 documented as of this encounter (statuses as of 08/27/2023) [address]09-2003 History of Past illness Narrative* Problem Noted Date Diagnosed Date Resolved Date Renal failure, unspecified 11/25/2002 0 05/27/2006 Urinary tract infection, site not specified 11/24/2002 08/21/2016 documented as of this encounter (statuses as of 08/28/2023) [address]09-2003 History of Past illness Narrative* Problem Noted Date Diagnosed Date Resolved Date Renal failure, unspecified 11/25/2002 0 05/27/2006 Urinary tract infection, site not specified 11/24/2002 08/21/2016 documented as of this encounter (statuses as of 09/01/2023) [address]09-2003 History of Past illness Narrative* Problem Noted Date Diagnosed Date Resolved Date Renal failure, unspecified 11/25/2002 0 05/27/2006 Urinary tract infection, site not specified 11/24/2002 08/21/2016 documented as of this encounter (statuses as of 09/08/2023) [address]09-2003 History of Past illness Narrative* Problem Noted Date Diagnosed Date Resolved Date Renal failure, unspecified 11/25/2002 0 05/27/2006 Urinary tract infection, site not specified 11/24/2002 08/21/2016 documented as of this encounter (statuses as of 09/09/2023) [address]09-2003 History of Past illness Narrative* Problem Noted Date Diagnosed Date Resolved Date Renal failure, unspecified 11/25/2002 0 05/27/2006 Urinary tract infection, site not specified 11/24/2002 08/21/2016 documented as of this encounter (statuses as of 09/16/2023) [address]09-2003 History of Past illness Narrative* Problem Noted Date Diagnosed Date Resolved Date Renal failure, unspecified 11/25/2002 0 05/27/2006 Urinary tract infection, site not specified 11/24/2002 08/21/2016 documented as of this encounter (statuses as of 09/17/2023) [address]09-2003 History of Past illness Narrative* Problem Noted Date Diagnosed Date Resolved Date Renal failure, unspecified 11/25/2002 0 05/27/2006 Urinary tract infection, site not specified 11/24/2002 08/21/2016 documented as of this encounter (statuses as of 09/19/2023) [address]09-2003 History of Past illness Narrative* Problem Noted Date Diagnosed Date Resolved Date Renal failure, unspecified 11/25/2002 0 05/27/2006 Urinary tract infection, site not specified 11/24/2002 08/21/2016 documented as of this encounter (statuses as of 09/21/2023) [address]09-2003 History of Past illness Narrative* Problem Noted Date Diagnosed Date Resolved Date Renal failure, unspecified 11/25/2002 0 05/27/2006 Urinary tract infection, site not specified 11/24/2002 08/21/2016 documented as of this encounter (statuses as of 09/21/2023) [address]09-2003 History of Past illness Narrative* Problem Noted Date Diagnosed Date Resolved Date Renal failure, unspecified 11/25/2002 0 05/27/2006 Urinary tract infection, site not specified 11/24/2002 08/21/2016 documented as of this encounter (statuses as of 09/21/2023) [address]09-2003 History of Past illness Narrative* Problem Noted Date Diagnosed Date Resolved Date Renal failure, unspecified 11/25/2002 0 05/27/2006 Urinary tract infection, site not specified 11/24/2002 08/21/2016 documented as of this encounter (statuses as of 09/21/2023) [address]09-2003 History of Past illness Narrative* Problem Noted Date Diagnosed Date Resolved Date Renal failure, unspecified 11/25/2002 0 05/27/2006 Urinary tract infection, site not specified 11/24/2002 08/21/2016 documented as of this encounter (statuses as of 09/21/2023) [address]09-2003 History of Past illness Narrative* Problem Noted Date Diagnosed Date Resolved Date Renal failure, unspecified 11/25/2002 0 05/27/2006 Urinary tract infection, site not specified 11/24/2002 08/21/2016 documented as of this encounter (statuses as of 09/22/2023) [address]09-2003 History of Past illness Narrative* Problem Noted Date Diagnosed Date Resolved Date Renal failure, unspecified 11/25/2002 0 05/27/2006 Urinary tract infection, site not specified 11/24/2002 08/21/2016 documented as of this encounter (statuses as of 09/23/2023) [address]09-2003 History of Past illness Narrative* Problem Noted Date Diagnosed Date Resolved Date Renal failure, unspecified 11/25/2002 0 05/27/2006 Urinary tract infection, site not specified 11/24/2002 08/21/2016 documented as of this encounter (statuses as of 09/24/2023) [address]09-2003 History of Past illness Narrative* Problem Noted Date Diagnosed Date Resolved Date Renal failure, unspecified 11/25/2002 0 05/27/2006 Urinary tract infection, site not specified 11/24/2002 08/21/2016 documented as of this encounter (statuses as of 09/26/2023) [address]09-2003 History of Past illness Narrative* Problem Noted Date Diagnosed Date Resolved Date Renal failure, unspecified 11/25/2002 0 05/27/2006 Urinary tract infection, site not specified 11/24/2002 08/21/2016 documented as of this encounter (statuses as of 09/26/2023) [address]09-2003 History of Past illness Narrative* Problem Noted Date Diagnosed Date Resolved Date Renal failure, unspecified 11/25/2002 0 05/27/2006 Urinary tract infection, site not specified 11/24/2002 08/21/2016 documented as of this encounter (statuses as of 09/26/2023) [address]09-2003 History of Past illness Narrative* Problem Noted Date Diagnosed Date Resolved Date Renal failure, unspecified 11/25/2002 0 05/27/2006 Urinary tract infection, site not specified 11/24/2002 08/21/2016 documented as of this encounter (statuses as of 09/29/2023) [address]09-2003 History of Past illness Narrative* Problem Noted Date Diagnosed Date Resolved Date Renal failure, unspecified 11/25/2002 0 05/27/2006 Urinary tract infection, site not specified 11/24/2002 08/21/2016 documented as of this encounter (statuses as of 10/01/2023) [address]09-2003 History of Past illness Narrative* Problem Noted Date Diagnosed Date Resolved Date Renal failure, unspecified 11/25/2002 0 05/27/2006 Urinary tract infection, site not specified 11/24/2002 08/21/2016 documented as of this encounter (statuses as of 10/03/2023) [address]09-2003 History of Past illness Narrative* Problem Noted Date Diagnosed Date Resolved Date Renal failure, unspecified 11/25/2002 0 05/27/2006 Urinary tract infection, site not specified 11/24/2002 08/21/2016 documented as of this encounter (statuses as of 10/06/2023) [address]09-2003 History of Past illness Narrative* Problem Noted Date Diagnosed Date Resolved Date Renal failure, unspecified 11/25/2002 0 05/27/2006 Urinary tract infection, site not specified 11/24/2002 08/21/2016 documented as of this encounter (statuses as of 10/14/2023) [address]09-2003 History of Past illness Narrative* Problem Noted Date Diagnosed Date Resolved Date Renal failure, unspecified 11/25/2002 0 05/27/2006 Urinary tract infection, site not specified 11/24/2002 08/21/2016 documented as of this encounter (statuses as of 10/16/2023) [address]09-2003 History of Past illness Narrative* Problem Noted Date Diagnosed Date Resolved Date Renal failure, unspecified 11/25/2002 0 05/27/2006 Urinary tract infection, site not specified 11/24/2002 08/21/2016 documented as of this encounter (statuses as of 10/17/2023) [address]09[address]2003 History of Past illness Narrative* Problem Noted Date Diagnosed Date Resolved Date Renal failure, unspecified 11/25/2002 0 05/27/2006 Urinary tract infection, site not specified 11/24/2002 08/21/2016 documented as of this encounter (statuses as of 10/23/2023) [address]09[address]2003 History of Past illness Narrative* Problem Noted Date Diagnosed Date Resolved Date Renal failure, unspecified 11/25/2002 0 05/27/2006 Urinary tract infection, site not specified 11/24/2002 08/21/2016 documented as of this encounter (statuses as of 11/17/2023) [facility] Diagnosis Dysuria- Primary documented [facility] noteNo assessment information availableWBlanch[facility] Work Phone: [facility]* Diagnosis Onset Date Resolution Status Acute on chronic renal failure acute Cellulitis of right lower extremity acute Sebaceous cyst acute Severe sepsis acute Autism chronic CKD (chronic kidney disease) stage 3, GFR 30-59 ml/min chronic Hypertension [facility] Work Phone: evaluation note* Diagnosis Glucosuria- Primary Glycosuria Chronic midline low back pain without sciatica [facility]* Diagnosis Onset Date Resolution Status Acute on chronic renal failure acute Cellulitis of right lower extremity acute Sebaceous cyst acute Severe sepsis acute Autism chronic CKD (chronic kidney disease) stage 3, GFR 30-59 ml/min chronic Hypertension chronic Sebaceous cyst acute [facility] Work Phone: evaluation note* Diagnosis Primary hyperparathyroidism (HCC)- Primary Primary hyperparathyroidism [facility] Diagnosis Onset Date Resolution Status Lymphadenopathy, retroperitoneal acute [facility] Work Phone: evaluation note* Diagnosis Onset Date Resolution Status 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 cancer acut e Right testicular cancer acut e [facility] Work Phone: evaluation note* Diagnosis 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 Malignant neoplasm of other and unspecified testis Retroperitoneal lymphadenopathy Enlargement of lymph nodes documented [facility]* Diagnosis Abdominal pain, unspecified abdominal location- Primary [facility]* Diagnosis Hyperparathyroidism due to renal insufficiency (HCC)- Primary Secondary hyperparathyroidism (of renal origin) [facility]* Diagnosis 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 Malignant neoplasm of other and unspecified testis 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 Seminoma of descended right testis (HCC) [facility]* Diagnosis 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 Malignant neoplasm of other and unspecified testis Seminoma of descended right testis (HCC) 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 Screening for HIV (human immunodeficiency virus) Special screening examination for other specified viral diseases [facility] Diagnosis 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 Malignant neoplasm of other and unspecified testis [facility] Diagnosis Encounter for education- Primary Counseling NOS [facility]* Diagnosis 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 Malignant neoplasm of other and unspecified testis [facility] Diagnosis 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 Secondary and unspecified malignant neoplasm of intra-abdominal lymph nodes Seminoma of descended right testis (HCC) 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) Malignant neoplasm of other and unspecified testis [facility] 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 Secondary and unspecified malignant neoplasm of intra-abdominal lymph nodes Seminoma of descended right testis (HCC) 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) Malignant neoplasm of other and unspecified testis [facility] 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) Malignant neoplasm of other and unspecified testis [facility] Seminoma of descended right testis (HCC)- Primary 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) Malignant neoplasm of other and unspecified testis Skin infection Unspecified local infection of skin and subcutaneous tissue [facility] 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 Secondary and unspecified malignant neoplasm of intra-abdominal lymph nodes Seminoma of descended right testis (HCC) 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) Malignant neoplasm of other and unspecified testis [facility] Diagnosis 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 Secondary and unspecified malignant neoplasm of intra-abdominal lymph nodes Seminoma of descended right testis (HCC) 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) Malignant neoplasm of other and unspecified testis [facility] 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 Secondary and unspecified malignant neoplasm of intra-abdominal lymph nodes Seminoma of descended right testis (HCC) 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) Malignant neoplasm of other and unspecified testis [facility] Diagnosis 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 Secondary and unspecified malignant neoplasm of intra-abdominal lymph nodes Seminoma of descended right testis (HCC) 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) Malignant neoplasm of other and unspecified testis [facility] Diagnosis 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 Malignant neoplasm of other and unspecified testis 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 Seminoma of descended right testis (HCC) [facility] Diagnosis 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 Secondary and unspecified malignant neoplasm of intra-abdominal lymph nodes Seminoma of descended right testis (HCC) 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) Malignant neoplasm of other and unspecified testis [facility] Diagnosis 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 Secondary and unspecified malignant neoplasm of intra-abdominal lymph nodes Seminoma of descended right testis (HCC) 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) Malignant neoplasm of other and unspecified testis [facility] Diagnosis 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) Malignant neoplasm of other and unspecified testis 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 [facility] Diagnosis 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) Malignant neoplasm of other and unspecified testis [facility] Diagnosis 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 Malignant neoplasm of other and unspecified testis 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 [facility] Diagnosis 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 Secondary and unspecified malignant neoplasm of intra-abdominal lymph nodes Seminoma of descended right testis (HCC) 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) Malignant neoplasm of other and unspecified testis [facility] Diagnosis 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 Secondary and unspecified malignant neoplasm of intra-abdominal lymph nodes Seminoma of descended right testis (HCC) 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) Malignant neoplasm of other and unspecified testis [facility] Diagnosis 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) Malignant neoplasm of other and unspecified testis Seminoma of descended right testis (HCC) 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 Screening for HIV (human immunodeficiency virus) Special screening examination for other specified viral diseases [facility] Diagnosis 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) Malignant neoplasm of other and unspecified testis [facility] Diagnosis 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) Malignant neoplasm of other and unspecified testis 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 [facility] Diagnosis 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 Malignant neoplasm of other and unspecified testis 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 [facility] Diagnosis 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) Malignant neoplasm of other and unspecified testis 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 [facility] Diagnosis 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 Malignant neoplasm of other and unspecified testis [facility] Diagnosis Anemia of chronic disease Anemia of other chronic disease [facility] Diagnosis Anemia of chronic disease- Primary Anemia of other chronic disease [facility] Diagnosis 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) Malignant neoplasm of other and unspecified testis 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 [facility] Diagnosis Seminoma of descended right testis (HCC)- Primary 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) Malignant neoplasm of other and unspecified testis Platelets decreased (HCC) Thrombocytopenia, unspecified [facility] Diagnosis Onset Date Resolution Status Right testicular cancer [facility] Work Phone: Evaluation note* Diagnosis Seminoma of descended right testis (HCC)- Primary 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) Malignant neoplasm of other and unspecified testis 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 [facility] Diagnosis 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) Malignant neoplasm of other and unspecified testis 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 [facility] Diagnosis 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 Malignant neoplasm of other and unspecified testis 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 Seminoma of descended right testis (HCC) Stage 3b chronic kidney disease (HCC) [facility] Diagnosis Malignant neoplasm of testicle, unspecified laterality, unspecified whether descended or undescended (HCC)- Primary 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) Malignant neoplasm of other and unspecified testis 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) Malignant neoplasm of other and unspecified testis [facility] Diagnosis Seminoma of descended right testis (HCC)- Primary 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 Malignant neoplasm of other and unspecified testis History of testicular cancer Personal history of malignant neoplasm of testis [facility] Diagnosis Screening for genitourinary condition Screening for other and unspecified genitourinary condition [facility] Diagnosis Chronic gout of vertebrae, unspecified cause- Primary [facility] Diagnosis Chronic gout of vertebrae, unspecified cause [facility] Diagnosis 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) Malignant neoplasm of other and unspecified testis 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 [facility] Diagnosis 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) Malignant neoplasm of other and unspecified testis 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 Stage 3b chronic kidney disease (HCC) [facility] Diagnosis 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 Malignant neoplasm of other and unspecified testis 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 Chronic gout of vertebrae, unspecified cause Stage 3b chronic kidney disease (HCC) [facility] Diagnosis 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 Malignant neoplasm of other and unspecified testis 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 Asymptomatic microscopic hematuria 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) Malignant neoplasm of other and unspecified testis 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 [facility] Diagnosis 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) Malignant neoplasm of other and unspecified testis 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) Malignant neoplasm of other and unspecified testis 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 [facility] Diagnosis Seminoma of descended right testis (HCC)- Primary 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) Malignant neoplasm of other and unspecified testis 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 [facility] Diagnosis Seminoma of descended right testis (HCC)- Primary 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 Stage 3b chronic kidney disease (HCC) Leg swelling Swelling of limb Low blood potassium Hypopotassemia 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) Malignant neoplasm of other and unspecified testis 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 [facility] Primary hypertension- Primary Unspecified essential hypertension RONALD (obstructive sleep apnea) Obstructive sleep apnea (adult) (pediatric) Mild intermittent asthma without complication Unspecified asthma Retroperitoneal lymphadenopathy Enlargement of lymph nodes Stage 3b chronic kidney disease (HCC) Anemia, unspecified type 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 Autism Autistic disorder, current or active state Type 2 diabetes mellitus without complication, without long-term current use of insulin (HCC) Depression with anxiety Dysthymic disorder Hyperparathyroidism due to renal insufficiency (HCC) Secondary hyperparathyroidism (of renal origin) Preop examination Preoperative examination, unspecified 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 Trinidad. On conservative management. - Follows with nephrology. * Assessment & Plan Note - Caleb Duenas MD - 03/09/2024 12:55 PM EDT Associated Problem(s): Depression with anxiety AP: stable, compliant with medication * Assessment & Plan Note - Caleb Duenas MD - 03/09/2024 12:54 PM EDT Associated Problem(s): Autism AP: stable. Patient lives in his apartment with the help of caregivers during the day. - able to carry our conversation with correct responses and is aware of the medications he takes. * Assessment & Plan Note - Caleb Duenas MD - 03/09/2024 12:53 PM EDT Associated Problem(s): Type 2 diabetes mellitus without complication, without long-term current useof insulin (HCC) AP: Reports compliance to medication farxiga and Trulicity. Reports BS checks in 110s. Following with PCP. * Assessment & Plan Note - Caleb Duenas MD - 03/09/2024 12:53 PM EDT Associated Problem(s): RONALD (obstructive sleep apnea) AP: does not use CPAP * Assessment & Plan Note - Caleb Duenas MD - 03/09/2024 12:52 PM EDT Associated Problem(s): Mild intermittent asthma without complication AP: Follows with PCP. Does not use inhaler. Denies recent exacerbations or hospitalizations. * Assessment & Plan Note - Caleb Duenas MD - 03/09/2024 12:52 PM EDT Associated Problem(s): Hypertension AP: stable, followed by PCP. 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) Malignant neoplasm of other and unspecified testis 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 [facility] Diagnosis Screening for genitourinary condition Screening for other and unspecified genitourinary condition 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) Malignant neoplasm of other and unspecified testis 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 [facility] Diagnosis 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 Malignant neoplasm of other and unspecified testis [facility] Diagnosis Screening for genitourinary condition Screening for other and unspecified genitourinary condition [facility]* Diagnosis 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) Malignant neoplasm of other and unspecified testis [facility] Malignant neoplasm of testicle, unspecified laterality, unspecified whether descended or undescended (HCC) 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, unspecified laterality (HCC) [facility] Diagnosis 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) Malignant neoplasm of other and unspecified testis 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 [facility] Diagnosis Screening for genitourinary condition Screening for other and unspecified genitourinary condition [facility] Diagnosis 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) Malignant neoplasm of other and unspecified testis [facility] Diagnosis 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 Malignant neoplasm of other and unspecified testis 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 [facility] Diagnosis 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) Malignant neoplasm of other and unspecified testis 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 [facility] Diagnosis 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 Malignant neoplasm of other and unspecified testis 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 Stage 3b chronic kidney disease (HCC) [facility] Diagnosis 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 Malignant neoplasm of other and unspecified testis [facility] Diagnosis 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) Malignant neoplasm of other and unspecified testis 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 Stage 3b chronic kidney disease (HCC) Seminoma of descended right testis (HCC) Low blood potassium Hypopotassemia [facility] Diagnosis 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 Malignant neoplasm of other and unspecified testis 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 Stage 3b chronic kidney disease (HCC) Seminoma of descended right testis (HCC) [facility] Diagnosis Seminoma of descended right testis (HCC)- Primary 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 [facility] Diagnosis Pre-op evaluation- Primary Preoperative examination, unspecified Primary hypertension Unspecified essential hypertension Mild intermittent asthma without complication Unspecified asthma RONALD (obstructive sleep apnea) Obstructive sleep apnea (adult) (pediatric) Type 2 diabetes mellitus without complication, without long-term current use of insulin (HCC) Depression with anxiety Dysthymic disorder Autism Autistic disorder, current or active state Stage 3b chronic kidney disease (HCC) 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 Malignant neoplasm of other and unspecified testis 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 Retroperitoneal lymphadenopathy Enlargement of lymph nodes Acute postoperative respiratory insufficiency Other pulmonary insufficiency, not elsewhere classified, following trauma and surgery Post-op pain Other acute postoperative pain Right ventricular dysfunction Heart disease, unspecified CKD (chronic kidney disease) stage 3, GFR 30-59 ml/min (HCC) Chronic kidney disease, Stage III (moderate) RONALD (obstructive sleep apnea) Obstructive sleep apnea (adult) (pediatric) Primary hypertension Unspecified essential hypertension Type 2 diabetes mellitus without complication, without long-term current use of insulin (HCC) Postprocedural hypotension Other iatrogenic hypotension Asthma Unspecified asthma Primary hypertension- Primary Unspecified essential hypertension RONALD (obstructive sleep apnea) Obstructive sleep apnea (adult) (pediatric) Mild intermittent asthma without complication Unspecified asthma Retroperitoneal lymphadenopathy Enlargement of lymph nodes Stage 3b chronic kidney disease (HCC) Anemia, unspecified type 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 Autism Autistic disorder, current or active state Type 2 diabetes mellitus without complication, without long-term current use of insulin (HCC) Depression with anxiety Dysthymic disorder Hyperparathyroidism due to renal insufficiency (HCC) Secondary hyperparathyroidism (of renal origin) Preop examination Preoperative examination, unspecified 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) Malignant neoplasm of other and unspecified testis 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 Stage 3b chronic kidney disease (HCC) Seminoma of descended right testis (HCC) documented in this encounter [facility] note* Diagnosis Pre-op evaluation- Primary Preoperative examination, unspecified Primary hypertension Unspecified essential hypertension Mild intermittent asthma without complication Unspecified asthma RONALD (obstructive sleep apnea) Obstructive sleep apnea (adult) (pediatric) Type 2 diabetes mellitus without complication, without long-term current use of insulin (HCC) Depression with anxiety Dysthymic disorder Autism Autistic disorder, current or active state Stage 3b chronic kidney disease (HCC) 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 Malignant neoplasm of other and unspecified testis 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 Retroperitoneal lymphadenopathy Enlargement of lymph nodes Acute postoperative respiratory insufficiency Other pulmonary insufficiency, not elsewhere classified, following trauma and surgery Post-op pain Other acute postoperative pain Right ventricular dysfunction Heart disease, unspecified CKD (chronic kidney disease) stage 3, GFR 30-59 ml/min (HCC) Chronic kidney disease, Stage III (moderate) RONALD (obstructive sleep apnea) Obstructive sleep apnea (adult) (pediatric) Primary hypertension Unspecified essential hypertension Type 2 diabetes mellitus without complication, without long-term current use of insulin (HCC) Postprocedural hypotension Other iatrogenic hypotension Asthma Unspecified asthma Primary hypertension- Primary Unspecified essential hypertension RONALD (obstructive sleep apnea) Obstructive sleep apnea (adult) (pediatric) Mild intermittent asthma without complication Unspecified asthma Retroperitoneal lymphadenopathy Enlargement of lymph nodes Stage 3b chronic kidney disease (HCC) Anemia, unspecified type 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 Autism Autistic disorder, current or active state Type 2 diabetes mellitus without complication, without long-term current use of insulin (HCC) Depression with anxiety Dysthymic disorder Hyperparathyroidism due to renal insufficiency (HCC) Secondary hyperparathyroidism (of renal origin) Preop examination Preoperative examination, unspecified Malignant neoplasm of testicle, unspecified laterality, unspecified whether descended or undescended (HCC)- [facility] Pre-op [facility]- Primary Preoperative examination, unspecified Primary hypertension Unspecified essential hypertension Mild intermittent asthma without complication Unspecified asthma RONALD (obstructive sleep apnea) Obstructive sleep apnea (adult) (pediatric) Type 2 diabetes mellitus without complication, without long-term current use of insulin (HCC) Depression with anxiety Dysthymic disorder Autism Autistic disorder, current or active state Stage 3b chronic kidney disease (HCC) 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 Malignant neoplasm of other and unspecified testis 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 Retroperitoneal lymphadenopathy Enlargement of lymph nodes Acute postoperative respiratory insufficiency Other pulmonary insufficiency, not elsewhere classified, following trauma and surgery Post-op pain Other acute postoperative pain Right ventricular dysfunction Heart disease, unspecified CKD (chronic kidney disease) stage 3, GFR 30-59 ml/min (HCC) Chronic kidney disease, Stage III (moderate) RONALD (obstructive sleep apnea) Obstructive sleep apnea (adult) (pediatric) Primary hypertension Unspecified essential hypertension Type 2 diabetes mellitus without complication, without long-term current use of insulin (HCC) Postprocedural hypotension Other iatrogenic hypotension Asthma Unspecified asthma Primary hypertension- Primary Unspecified essential hypertension RONALD (obstructive sleep apnea) Obstructive sleep apnea (adult) (pediatric) Mild intermittent asthma without complication Unspecified asthma Retroperitoneal lymphadenopathy Enlargement of lymph nodes Stage 3b chronic kidney disease (HCC) Anemia, unspecified type 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 Autism Autistic disorder, current or active state Type 2 diabetes mellitus without complication, without long-term current use of insulin (HCC) Depression with anxiety Dysthymic disorder Hyperparathyroidism due to renal insufficiency (HCC) Secondary hyperparathyroidism (of renal origin) Preop examination Preoperative examination, unspecified Screening for genitourinary condition Screening for other and unspecified genitourinary condition [facility] Diagnosis Pre-op evaluation- Primary Preoperative examination, unspecified Primary hypertension Unspecified essential hypertension Mild intermittent asthma without complication Unspecified asthma RONALD (obstructive sleep apnea) Obstructive sleep apnea (adult) (pediatric) Type 2 diabetes mellitus without complication, without long-term current use of insulin (HCC) Depression with anxiety Dysthymic disorder Autism Autistic disorder, current or active state Stage 3b chronic kidney disease (HCC) 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 Malignant neoplasm of other and unspecified testis 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 Retroperitoneal lymphadenopathy Enlargement of lymph nodes Acute postoperative respiratory insufficiency Other pulmonary insufficiency, not elsewhere classified, following trauma and surgery Post-op pain Other acute postoperative pain Right ventricular dysfunction Heart disease, unspecified CKD (chronic kidney disease) stage 3, GFR 30-59 ml/min (HCC) Chronic kidney disease, Stage III (moderate) RONALD (obstructive sleep apnea) Obstructive sleep apnea (adult) (pediatric) Primary hypertension Unspecified essential hypertension Type 2 diabetes mellitus without complication, without long-term current use of insulin (HCC) Postprocedural hypotension Other iatrogenic hypotension Asthma Unspecified asthma Primary hypertension- Primary Unspecified essential hypertension RONALD (obstructive sleep apnea) Obstructive sleep apnea (adult) (pediatric) Mild intermittent asthma without complication Unspecified asthma Retroperitoneal lymphadenopathy Enlargement of lymph nodes Stage 3b chronic kidney disease (HCC) Anemia, unspecified type 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 Autism Autistic disorder, current or active state Type 2 diabetes mellitus without complication, without long-term current use of insulin (HCC) Depression with anxiety Dysthymic disorder Hyperparathyroidism due to renal insufficiency (HCC) Secondary hyperparathyroidism (of renal origin) Preop examination Preoperative examination, unspecified 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 Malignant neoplasm of other and unspecified testis [facility] Pre-op evaluation- Primary Preoperative examination, unspecified Primary hypertension Unspecified essential hypertension Mild intermittent asthma without complication Unspecified asthma RONALD (obstructive sleep apnea) Obstructive sleep apnea (adult) (pediatric) Type 2 diabetes mellitus without complication, without long-term current use of insulin (HCC) Depression with anxiety Dysthymic disorder Autism Autistic disorder, current or active state Stage 3b chronic kidney disease (HCC) 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 Malignant neoplasm of other and unspecified testis 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 Retroperitoneal lymphadenopathy Enlargement of lymph nodes Acute postoperative respiratory insufficiency Other pulmonary insufficiency, not elsewhere classified, following trauma and surgery Post-op pain Other acute postoperative pain Right ventricular dysfunction Heart disease, unspecified CKD (chronic kidney disease) stage 3, GFR 30-59 ml/min ([facility]) Chronic kidney disease, Stage III (moderate) RONALD (obstructive sleep apnea) Obstructive sleep apnea (adult) (pediatric) Primary hypertension Unspecified essential hypertension Type 2 diabetes mellitus without complication, without long-term current use of insulin (HCC) Postprocedural hypotension Other iatrogenic hypotension Asthma Unspecified asthma Primary hypertension- Primary Unspecified essential hypertension RONALD (obstructive sleep apnea) Obstructive sleep apnea (adult) (pediatric) Mild intermittent asthma without complication Unspecified asthma Retroperitoneal lymphadenopathy Enlargement of lymph nodes Stage 3b chronic kidney disease (HCC) Anemia, unspecified type 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 Autism Autistic disorder, current or active state Type 2 diabetes mellitus without complication, without long-term current use of insulin (HCC) Depression with anxiety Dysthymic disorder Hyperparathyroidism due to renal insufficiency (HCC) Secondary hyperparathyroidism (of renal origin) Preop examination Preoperative examination, unspecified Encounter for removal of vascular catheter- Primary Fitting and adjustment of vascular catheter [facility] Diagnosis 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 Malignant neoplasm of other and unspecified testis 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 Stage 3b chronic kidney disease (HCC) 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, unspecified laterality (HCC) Malignant neoplasm of testicle, unspecified laterality, unspecified whether descended or undescended (HCC) [facility] Diagnosis Foot pain, left Pain in limb Pre-op evaluation- Primary Preoperative examination, unspecified Primary hypertension Unspecified essential hypertension Mild intermittent asthma without complication Unspecified asthma RONALD (obstructive sleep apnea) Obstructive sleep apnea (adult) (pediatric) Type 2 diabetes mellitus without complication, without long-term current use of insulin (HCC) Depression with anxiety Dysthymic disorder Autism Autistic disorder, current or active state Stage 3b chronic kidney disease (HCC) 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 Malignant neoplasm of other and unspecified testis 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 Primary hypertension- Primary Unspecified essential hypertension RONALD (obstructive sleep apnea) Obstructive sleep apnea (adult) (pediatric) Mild intermittent asthma without complication Unspecified asthma Retroperitoneal lymphadenopathy Enlargement of lymph nodes Stage 3b chronic kidney disease (HCC) Anemia, unspecified type 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 Autism Autistic disorder, current or active state Type 2 diabetes mellitus without complication, without long-term current use of insulin (HCC) Depression with anxiety Dysthymic disorder Hyperparathyroidism due to renal insufficiency (HCC) Secondary hyperparathyroidism (of renal origin) Preop examination Preoperative examination, unspecified [facility] Diagnosis Pre-op evaluation- Primary Preoperative examination, unspecified Primary hypertension Unspecified essential hypertension Mild intermittent asthma without complication Unspecified asthma RONALD (obstructive sleep apnea) Obstructive sleep apnea (adult) (pediatric) Type 2 diabetes mellitus without complication, without long-term current use of insulin (HCC) Depression with anxiety Dysthymic disorder Autism Autistic disorder, current or active state Stage 3b chronic kidney disease (HCC) 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 Malignant neoplasm of other and unspecified testis 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 Retroperitoneal lymphadenopathy Enlargement of lymph nodes Acute postoperative respiratory insufficiency Other pulmonary insufficiency, not elsewhere classified, following trauma and surgery Post-op pain Other acute postoperative pain Right ventricular dysfunction Heart disease, unspecified CKD (chronic kidney disease) stage 3, GFR 30-59 ml/min (HCC) Chronic kidney disease, Stage III (moderate) RONALD (obstructive sleep apnea) Obstructive sleep apnea (adult) (pediatric) Primary hypertension Unspecified essential hypertension Type 2 diabetes mellitus without complication, without long-term current use of insulin (HCC) Postprocedural hypotension Other iatrogenic hypotension Asthma Unspecified asthma Primary hypertension- Primary Unspecified essential hypertension RONALD (obstructive sleep apnea) Obstructive sleep apnea (adult) (pediatric) Mild intermittent asthma without complication Unspecified asthma Retroperitoneal lymphadenopathy Enlargement of lymph nodes Stage 3b chronic kidney disease (HCC) Anemia, unspecified type 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 Autism Autistic disorder, current or active state Type 2 diabetes mellitus without complication, without long-term current use of insulin (HCC) Depression with anxiety Dysthymic disorder Hyperparathyroidism due to renal insufficiency (HCC) Secondary hyperparathyroidism (of renal origin) Preop examination Preoperative examination, unspecified Screening for genitourinary condition Screening for other and unspecified genitourinary condition [facility]* Diagnosis Pre-op evaluation- Primary Preoperative examination, unspecified Primary hypertension Unspecified essential hypertension Mild intermittent asthma without complication Unspecified asthma RONALD (obstructive sleep apnea) Obstructive sleep apnea (adult) (pediatric) Type 2 diabetes mellitus without complication, without long-term current use of insulin (HCC) Depression with anxiety Dysthymic disorder Autism Autistic disorder, current or active state Stage 3b chronic kidney disease (HCC) 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 Malignant neoplasm of other and unspecified testis 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 Retroperitoneal lymphadenopathy Enlargement of lymph nodes Acute postoperative respiratory insufficiency Other pulmonary insufficiency, not elsewhere classified, following trauma and surgery Post-op pain Other acute postoperative pain Right ventricular dysfunction Heart disease, unspecified CKD (chronic kidney disease) stage 3, GFR 30-59 ml/min (HCC) Chronic kidney disease, Stage III (moderate) RONALD (obstructive sleep apnea) Obstructive sleep apnea (adult) (pediatric) Primary hypertension Unspecified essential hypertension Type 2 diabetes mellitus without complication, without long-term current use of insulin (HCC) Postprocedural hypotension Other iatrogenic hypotension Asthma Unspecified asthma Primary hypertension- Primary Unspecified essential hypertension RONALD (obstructive sleep apnea) Obstructive sleep apnea (adult) (pediatric) Mild intermittent asthma without complication Unspecified asthma Retroperitoneal lymphadenopathy Enlargement of lymph nodes Stage 3b chronic kidney disease (HCC) Anemia, unspecified type 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 Autism Autistic disorder, current or active state Type 2 diabetes mellitus without complication, without long-term current use of insulin (HCC) Depression with anxiety Dysthymic disorder Hyperparathyroidism due to renal insufficiency (HCC) Secondary hyperparathyroidism (of renal origin) Preop examination Preoperative examination, unspecified Malignant neoplasm of testicle, unspecified laterality, unspecified whether descended or undescended (HCC)- Primary [facility]* Diagnosis Pre-op evaluation- Primary Preoperative examination, unspecified Primary hypertension Unspecified essential hypertension Mild intermittent asthma without complication Unspecified asthma RONALD (obstructive sleep apnea) Obstructive sleep apnea (adult) (pediatric) Type 2 diabetes mellitus without complication, without long-term current use of insulin (HCC) Depression with anxiety Dysthymic disorder Autism Autistic disorder, current or active state Stage 3b chronic kidney disease (HCC) 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 Malignant neoplasm of other and unspecified testis 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 Retroperitoneal lymphadenopathy Enlargement of lymph nodes Acute postoperative respiratory insufficiency Other pulmonary insufficiency, not elsewhere classified, following trauma and surgery Post-op pain Other acute postoperative pain Right ventricular dysfunction Heart disease, unspecified CKD (chronic kidney disease) stage 3, GFR 30-59 ml/min (HCC) Chronic kidney disease, Stage III (moderate) RONALD (obstructive sleep apnea) Obstructive sleep apnea (adult) (pediatric) Primary hypertension Unspecified essential hypertension Type 2 diabetes mellitus without complication, without long-term current use of insulin (HCC) Postprocedural hypotension Other iatrogenic hypotension Asthma Unspecified asthma Primary hypertension- Primary Unspecified essential hypertension RONALD (obstructive sleep apnea) Obstructive sleep apnea (adult) (pediatric) Mild intermittent asthma without complication Unspecified asthma Retroperitoneal lymphadenopathy Enlargement of lymph nodes Stage 3b chronic kidney disease (HCC) Anemia, unspecified type 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 Autism Autistic disorder, current or active state Type 2 diabetes mellitus without complication, without long-term current use of insulin (HCC) Depression with anxiety Dysthymic disorder Hyperparathyroidism due to renal insufficiency (HCC) Secondary hyperparathyroidism (of renal origin) Preop examination Preoperative examination, unspecified Malignant neoplasm of testicle, unspecified laterality, unspecified whether descended or undescended (HCC) [facility] Diagnosis Pre-op evaluation- Primary Preoperative examination, unspecified Primary hypertension Unspecified essential hypertension Mild intermittent asthma without complication Unspecified asthma RONALD (obstructive sleep apnea) Obstructive sleep apnea (adult) (pediatric) Type 2 diabetes mellitus without complication, without long-term current use of insulin (HCC) Depression with anxiety Dysthymic disorder Autism Autistic disorder, current or active state Stage 3b chronic kidney disease (HCC) 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 Malignant neoplasm of other and unspecified testis 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 Retroperitoneal lymphadenopathy Enlargement of lymph nodes Acute postoperative respiratory insufficiency Other pulmonary insufficiency, not elsewhere classified, following trauma and surgery Post-op pain Other acute postoperative pain Right ventricular dysfunction Heart disease, unspecified CKD (chronic kidney disease) stage 3, GFR 30-59 ml/min ([facility]) Chronic kidney disease, Stage III (moderate) RONALD (obstructive sleep apnea) Obstructive sleep apnea (adult) (pediatric) Primary hypertension Unspecified essential hypertension Type 2 diabetes mellitus without complication, without long-term current use of insulin (HCC) Postprocedural hypotension Other iatrogenic hypotension Asthma Unspecified asthma Primary hypertension- Primary Unspecified essential hypertension RONALD (obstructive sleep apnea) Obstructive sleep apnea (adult) (pediatric) Mild intermittent asthma without complication Unspecified asthma Retroperitoneal lymphadenopathy Enlargement of lymph nodes Stage 3b chronic kidney disease (HCC) Anemia, unspecified type 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 Autism Autistic disorder, current or active state Type 2 diabetes mellitus without complication, without long-term current use of insulin (HCC) Depression with anxiety Dysthymic disorder Hyperparathyroidism due to renal insufficiency (HCC) Secondary hyperparathyroidism (of renal origin) Preop examination Preoperative examination, unspecified Malignant neoplasm of testicle, unspecified laterality, unspecified whether descended or undescended ([facility])- Primary Screening for genitourinary condition Screening for other and unspecified genitourinary condition Screening for genitourinary condition Screening for other and unspecified genitourinary condition documented in this encounter [facility] note* Diagnosis Pre-op evaluation- Primary Preoperative examination, unspecified Primary hypertension Unspecified essential hypertension Mild intermittent asthma without complication (HCC) Unspecified asthma RONALD (obstructive sleep apnea) Obstructive sleep apnea (adult) (pediatric) Type 2 diabetes mellitus without complication, without long-term current use of insulin (HCC) Depression with anxiety Dysthymic disorder Autism (HCC) Autistic disorder, current or active state Stage 3b chronic kidney disease (HCC) 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 Malignant neoplasm of other and unspecified testis 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 Retroperitoneal lymphadenopathy Enlargement of lymph nodes Acute postoperative respiratory insufficiency Other pulmonary insufficiency, not elsewhere classified, following trauma and surgery Post-op pain Other acute postoperative pain Right ventricular dysfunction Heart disease, unspecified CKD (chronic kidney disease) stage 3, GFR 30-59 ml/min (HCC) Chronic kidney disease, Stage III (moderate) RONALD (obstructive sleep apnea) Obstructive sleep apnea (adult) (pediatric) Primary hypertension Unspecified essential hypertension Type 2 diabetes mellitus without complication, without long-term current use of insulin (HCC) Postprocedural hypotension Other iatrogenic hypotension Asthma (HCC) Unspecified asthma Primary hypertension- Primary Unspecified essential hypertension RONALD (obstructive sleep apnea) Obstructive sleep apnea (adult) (pediatric) Mild intermittent asthma without complication (HCC) Unspecified asthma Retroperitoneal lymphadenopathy Enlargement of lymph nodes Stage 3b chronic kidney disease (HCC) Anemia, unspecified type 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 Autism (HCC) Autistic disorder, current or active state Type 2 diabetes mellitus without complication, without long-term current use of insulin (HCC) Depression with anxiety Dysthymic disorder Hyperparathyroidism due to renal insufficiency (HCC) Secondary hyperparathyroidism (of renal origin) Preop examination Preoperative examination, unspecified Malignant neoplasm of testicle, unspecified laterality, unspecified whether descended or undescended (HCC)- Primary Screening for genitourinary condition Screening for other and unspecified genitourinary condition documented in this encounter [facility] Dis[facility] Additional Instructions Your CT scan concerns for lymphoma. You will need a biopsy. Follow-up with Dr. Jackson at 3 PM tomorrow in the office. This will be coordinated. Use medication for pain as needed.[facility] Work Phone: Hospital Discharge instructions Additional Instructions Please call Dr. Heart's office to have Paul's surgery rescheduled.[facility] Work Phone: Hospital Discharge instructions Additional Instructions X-ray looked good. I think this is inflammation of his elbow most likely a tendonitis. Ice to the elbow. Motrin for pain and inflammation. Tylenol for pain. This should progressively get better. If not follow-up with his primary care physician. If you see significant redness or develops a fever or it is getting worse he needs to have it reevaluated. At this time it appears to be inflammation and not any infection. 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) Procedures NM PET/CT SKULL-THIGH SUBSEQUENT PET IMAGING CT ATTENUATION SKULL BASE MID-THIGH Alexus Palacios MD [address] [place] [address] Molecular & Functional Imaging [address] [place] [address] Referral ID Status Reason Start Date Expiration Date Visits Requested Visits Authorized [id number] Authorized Auto-Generat ed Referral 12/12/2023 11/15/2024 1 1 [facility] for referral (narrative)* Diagnostic Procedure Only (Urgent) - Closed Specialty Diagnoses / Procedures Referred By Contac t Referred To Contact XR IMAGING Diagnoses Foot pain, left Procedures XR FOOT GENERAL 3V AP/LAT/OBL LT X-RAY FOOT MINIMUM 3 VIEWS Miryam Cohen PA-C [address] [place] [address] Xr Imaging [place] [address] Referral ID Status Reason Start Date Expiration Date V isits Requested Visits Authorized [id number] Closed Auto-Generate d Referral 08/13/2021 09/12/2022 1 1 [facility] for referral (narrative)No reason for referral information availableW[facility] Narrative* Diagnostic Procedure Only (Urgent) - Closed Specialty Diagnoses / Procedures Referred By Contac t Referred To Contact XR IMAGING Diagnoses Foot pain, left Procedures XR FOOT GENERAL 3V AP/LAT/OBL LT X-RAY FOOT MINIMUM 3 VIEWS Miryam Cohen PA-C [address] [facility] [place] [address] [place] [address] Referral ID Status Reason Start Date Expiration Date V isits Requested Visits Authorized [id number] Closed Auto-Generate d Referral 08/13/2021 09/12/2022 1 1 [facility] for visit Narrative* MRI/CT (Routine) - Closed Specialty Diagnoses / Procedures Referred By Contac t Referred To Contact CT IMAGING Diagnoses Malignant neoplasm of testicle, unspecified laterality, unspecified whether descended or undescended (HCC) Procedures CT ABD/PEL WO IVCON CT ABD & PELVIS W/O CONTRAST Weight, MD Antonio [address] [place] [address] Phone: tel: fax: CT IMAGING [place] [address] Referral ID Status Reason Start Date Expiration Date V isits Requested Visits Authorized [id number] Closed Auto-Generate d Referral 07/06/2024 08/05/2025 1 1 [facility] for visit Narrative* MRI/CT (Routine) - Closed Specialty Diagnoses / Procedures Referred By Contac t Referred To Contact CT IMAGING Diagnoses Malignant neoplasm of testicle, unspecified laterality, unspecified whether descended or undescended (HCC) Procedures CT ABD/PEL WO IVCON CT ABD & PELVIS W/O CONTRAST Weight, MD Antonio [address] [place] [id number] Phone: tel: fax: CT IMAGING [facility] Referral ID Status Reason Start Date Expiration Date V isits Requested Visits Authorized [id number] Closed Auto-Generate d Referral 07/06/2024 08/05/2025 1 1 [facility] Advance Directives Documents on File Type Date Recorded 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 Advance Directive(s) Advance Directive Response Recorded Date/ Time Advance Directives No November 27, 2016 10:05am Living Will No January 02, 2 022 10:25pm Power of Wine Manager No January 02, 2022 10:25pm Advance Directive Response Recorded Date/ Time Advance Directives No November 27, 2016 10:05am Living Will No June 23, 2022 9:22pm Power of Wine Manager No June 23 9:22pm Advance Directive Response Recorded Date/ Time Advance Directives No November 27, 2016 9:05am Living Will No June 23, 2022 8:22pm Power of Wine Manager No June 23 8:22pm Advance Directive Response Recorded Date/ Time Advance Directives No November 27, 2016 10:05am Living Will No May 14, 2023 8:13am Power of Wine Manager No May 14 8:13am Advance Directive Response Recorded Date/ Time Advance Directives No November 27, 2016 10:05am Living Will No June 20, 2023 12:25pm Power of Wine Manager No June 20 12:25pm Advance Directive Response Recorded Date/ Time Advance Directives No November 27, 2016 10:05am Living Will No June 24, 2023 5:05pm Power of Wine Manager No June 24 5:05pm Advance Directive Response Recorded Date/ Time Name of Medical Power of Wine Manager SAVANNAH MESSINA R June 13, 2023 12:13pm Advance Directives No November 27, 2016 9:05am Living Will No June 24, 2023 4:05pm Power of Wine Manager No June 24 4:05pm Advance Directive Response Recorded Date/ Time Advance Directives No November 27, 2016 9:05am Living Will No June 24, 2023 4:05pm Power of Wine Manager No June 24 4:05pm Advance Directive Response Recorded Date/ Time Name of Medical Power of Wine Manager Parents February 16, 2024 2:31pm Advance Directives No November 27, 2016 10:05am Living Will No February 16, 2024 2:31pm Power of Wine Manager Yes February 15 2:31pm Advance Directive Response Recorded Date/ Time Living Will No November 11, 2 024 1:01pm Power of Wine Manager No November 11, 2024 1:01pm Advance Directives No November 27, 2016 10:05am Chief Complaint and Reason for Visit Chief Complaint KIDNEY ISSUES Chief Complaint 3 scalp wens LABSPEC R. CEBUL Reason for Visit Acute on chronic antione al failure Cellulitis of right lower extremity Sebaceous cyst Severe sepsis Autism CKD (chronic kidney disease) stage 3, GFR 30-59 ml/min Hypertension Chief Complaint 3 scalp wens LABSPEC R. CEBUL 1 W FU SUTURE REMOVAL HYPERGLYCEMIA PAIN OTHER Reason for Visit Acute on chronic antione al failure Cellulitis of right lower extremity Sebaceous cyst Severe sepsis Autism CKD (chronic kidney disease) stage 3, GFR 30-59 ml/min Hypertension Sebaceous cyst Chief Complaint 3 scalp wens LABSPEC R. CEBUL 1 W FU SUTURE REMOVAL HYPERGLYCEMIA PAIN OTHER TYPE 2 DM Reason for Visit Acute on chronic antione al failure Cellulitis of right lower extremity Sebaceous cyst Severe sepsis Autism CKD (chronic kidney disease) stage 3, GFR 30-59 ml/min Hypertension Sebaceous cyst Chief Complaint 3 scalp wens LABSPEC R. CEBUL 1 W FU SUTURE REMOVAL HYPERGLYCEMIA PAIN OTHER TYPE 2 DM TYPE 2 DM Reason for Visit Acute on chronic antione al failure Cellulitis of right lower extremity Sebaceous cyst Severe sepsis Autism CKD (chronic kidney disease) stage 3, GFR 30-59 ml/min Hypertension Sebaceous cyst Chief Complaint HYPERGLYCEMIA PAIN OTHER TYPE 2 DM TYPE 2 DM Chief Complaint PAIN OTHER TYPE 2 DM TYPE 2 DM TYPE 2 DM Chief Complaint PAIN OTHER TYPE 2 DM TYPE 2 DM TYPE 2 DM NO ORDER Chief Complaint TYPE 2 DM NO ORDER TYPE 2 DM Chief Complaint NO ORDER TYPE 2 DM Chief Complaint TYPE 2 DM HYPERCALCEMIA Chief Complaint HYPERCALCEMIA Chief Complaint HYPERCALCEMIA KINDEY Chief Complaint HYPERCALCEMIA KINDEY NEW PT - LYMPHADENOPATHY Localized enlarged lymph nodes Reason for Visit Lymphadenopathy, ret roperitoneal Chief Complaint HYPERCALCEMIA KINDEY NEW PT - LYMPHADENOPATHY Localized enlarged lymph nodes R/O TESTICULAR MASS Reason for Visit Lymphadenopathy, ret roperitoneal Chief Complaint KINDEY NEW PT - LYMPHADENOPATHY Localized enlarged lymph nodes R/O TESTICULAR MASS TESTICULAR CANCER REVIEW BIOPSY/CT SCAN - NO LABS Pain CONSULT - TESTICULAR hypertension Reason for Visit 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 Right testicular cancer Chief Complaint KINDEY NEW PT - LYMPHADENOPATHY Localized enlarged lymph nodes R/O TESTICULAR MASS TESTICULAR CANCER REVIEW BIOPSY/CT SCAN - NO LABS Pain CONSULT - TESTICULAR hypertension pain Reason for Visit 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 Right testicular cancer Chief Complaint R/O TESTICULAR MASS TESTICULAR CANCER REVIEW BIOPSY/CT SCAN - NO LABS Pain CONSULT - TESTICULAR hypertension pain 1 UNIT PRBC's Reason for Visit 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 Right testicular cancer Chief Complaint TESTICULAR CANCER REVIEW BIOPSY/CT SCAN - NO LABS Pain CONSULT - TESTICULAR hypertension pain 1 UNIT PRBC's 2 UNITS PRBC Reason for Visit 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 Right testicular cancer Chief Complaint Pain CONSULT - TESTICULAR hypertension pain 1 UNIT PRBC's 2 UNITS PRBC EORDERS Reason for Visit Right testicular can cer Chief Complaint pain 1 UNIT PRBC's 2 UNITS PRBC EORDERS Chief Complaint 2 UNITS PRBC EORDERS Chief Complaint R ARM PAIN Chief Complaint Admit Date hyperglycemia November 11, 2024 11:22am Localized edema December 02, 2024 1 2:58pm BILATERAL EDEMA December 02, 2024 1 :19pm Family History Relationship Condition Age at Onset Recorded Date/T kings Unknown Family History?- Unknown July 222014 7:38am Family History?- Unknown November 112014 2:03pm Relationship Condition Age at Onset Recorded Date/T kings Unknown Family History?- Unknown July 222014 6:38am Family History?- Unknown November 112014 1:03pm Reason for Referral Specialty Diagnoses / Procedures Referred By Mattie pike Referred To Contact Oncology Diagnoses 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) Procedures CONSULT TO ONCOLOGY OFFICE/OUTPATIENT [facility] 60-74 MINUTES Neil Barriga MD [address] [address] Referral ID Status Reason Start Date Expiration Date Visits Requested Visits Authorized [id number] Authorized PCP Requested Referral 06/27/2023 06/26/2024 1 1 Specialty Diagnoses / Procedures Referred By Mattie pike Referred To Contact CT IMAGING Diagnoses 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) Procedures CT ABD/PEL WO IVCON CT ABD & PELVIS W/O CONTRAST Alexus Palacios MD [address] [place] [address] Ct Imaging [place] [address] Referral ID Status Reason Start Date Expiration Date Visits Requested Visits Authorized [id number] Pending Review Auto-Generat ed Referral 07/07/2023 07/29/2024 1 1 Specialty Diagnoses / Procedures Referred By Contac t Referred To Contact CT IMAGING Diagnoses 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) Procedures CT CHEST WO IVCON DIAGNOSTIC COMPUTED TOMOGRAPHY THORAX W/O CNTRST Alexus Palacios MD [address] [place] [id number] Ct Imaging [place] [address] Referral ID Status Reason Start Date Expiration Date Visits Requested Visits Authorized [id number] Pending Review Auto-Generat ed Referral 07/07/2023 07/29/2024 1 1 Specialty Diagnoses / Procedures Referred By Contac t Referred To Contact General Surgery Diagnoses 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) Procedures CONSULT TO GENERAL SURGERY OFFICE/OUTPATIENT [facility] MDM 60-74 MINUTES Hardik Wilkerson, DO [address] [place] [address] Referral ID Status Reason Start Date Expiration Date Visits Requested Visits Authorized [id number] Authorized PCP Requested Referral 07/03/2023 07/02/2024 1 1 Specialty Diagnoses / [facility] CT [facility] Diagnoses 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) Screening for HIV (human immunodeficiency virus) Procedures CT ABD/PEL WO IVCON CT ABD & PELVIS W/O CONTRAST Hardik Wilkerson, DO [address] [place] [address] Ct Imaging [facility] Referral ID Status Reason Start Date Expiration Date V isits Requested Visits Authorized [id number] Closed Auto-Generate d Referral 07/03/2023 08/01/2024 1 1 Specialty Diagnoses / Procedures [facility] Ref[facility] To Contact CT IM[facility]ING Diagnoses 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) Screening for HIV (human immunodeficiency virus) Procedures CT CHEST WO IVCON DIAGNOSTIC COMPUTED TOMOGRAPHY THORAX W/O CNTRST Hardik Wilkerson, DO [address] [place] [address] [place] [address] Referral ID Status Reason Start Date Expiration Date V isits Requested Visits Authorized [id number] Closed Auto-Generate d Referral 07/03/2023 08/01/2024 1 1 Specialty Diagnoses / Procedures Referred By Contac t Referred To Contact CT IMAGING Diagnoses 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) Procedures CT ABD/PEL WO IVCON CT ABD & PELVIS W/O CONTRAST Rock Hardik A, DO [address] [place] [address] [place] [address] Referral ID Status Reason Start Date Expiration Date Visits Requested Visits Authorized [id number] Authorized Auto-Generat ed Referral 08/01/2023 08/30/2024 1 1 Specialty Diagnoses / Procedures [facility] Ref[facility] To Contact CT IM[facility]ING Diagnoses 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) Procedures CT ABD/PEL WO IVCON CT ABD & PELVIS W/O CONTRAST Masci Hardik A, DO [address] [place] [place] [address] [place] [address] Referral ID Status Reason Start Date Expiration Date Visits Requested Visits Authorized [id number] Authorized Auto-Generat ed Referral 3 10/15/2024 1 1 Specialty Diagnoses / Procedures [facility] Ref[facility] To Contact CT IMAGING Diagnoses 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) Procedures CT CHEST WO IVCON DIAGNOSTIC COMPUTED TOMOGRAPHY THORAX W/O CNTRST Rock Hardik A, DO [address] [place] [address] [place] [address] Referral ID Status Reason Start Date Expiration Date Visits Requested Visits Authorized [id number] Authorized Auto-Generat ed Referral 3 10/15/2024 1 1 Referral ID Status Reason Start Date Expiration Date V isits Requested Visits Authorized [id number] Closed Auto-Generate d Referral 08/01/2023 08/30/2024 1 1 Referral ID Status Reason Start Date Expiration Date V isits Requested Visits Authorized [id number] Closed Auto-Generate d Referral 09/16/2023 10/15/2024 1 1 Referral ID Status Reason Start Date Expiration Date V isits Requested Visits Authorized [id number] Closed Auto-Generate d Referral 09/16/2023 10/15/2024 1 1 Specialty Diagnoses / Procedures Referred By Contac t Referred To Contact Urology / UROL MAIN Diagnoses 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) Procedures CONSULT TO UROLOGY OFFICE/OUTPATIENT [facility] MDM 60-74 MINUTES Hardik Wilkerson, [address] [place] [address] [place] [id number] [place] [address] Referral ID Status Reason Start Date Expiration Date Visits Requested Visits Authorized [id number] Authorized PCP Requested Referral 09/22/2023 09/21/2024 1 1 Referral ID Status Reason Start Date Expiration Date Visits Requested Visits Authorized [id number] Authorized Auto-Generat ed Referral 10/29/2024 1 1 Specialty Diagnoses / Procedures Referred By Contac t Referred To Contact Diagnoses 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) Procedures REFER TO PACC - PRE ANESTHESIA CONSULTATION CLINIC OFFICE/OUTPATIENT [facility] 60 MINUTES Weight, MD Antonio [address] [place] [address] Referral ID Status Reason Start Date Expiration Date Visits Requested Visits Authorized [id number] Authorized PCP Requested Referral 02/19/2024 02/17/2025 1 1 Specialty Diagnoses / Procedures Referred By Contac t Referred To Contact CT IMAGING Diagnoses 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, unspecified laterality (HCC) Malignant neoplasm of testicle, unspecified laterality, unspecified whether descended or undescended (HCC) Procedures CT ABDOMEN W IVCON CT ABDOMEN W/CONTRAST Antonio Brown MD [address] [place] [address] [place] [address] Referral ID Status Reason Start Date Expiration Date Visits Requested Visits Authorized [id number] Authorized Auto-Generat ed Referral 04/01/2024 04/29/2025 1 1 Specialty Diagnoses / Procedures Referred By Contac t Referred To Contact CT IMAGING Diagnoses 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, unspecified laterality (HCC) Malignant neoplasm of testicle, unspecified laterality, unspecified whether descended or undescended (HCC) Procedures CT CHEST W IVCON DIAGNOSTIC COMPUTED TOMOGRAPHY THORAX W/CONTRAST Stephanie, MD Antonio [address] [place] [id number] Imaging [facility] Referral ID Status Reason Start Date Expiration Date Visits Requested Visits Authorized [id number] Authorized Auto-Generat ed Referral 04/01/2024 04/29/2025 1 1 Specialty Diagnoses / Procedures Referred By Contac t Referred To Contact CT IMAGING Diagnoses 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) Stage 3b chronic kidney disease (HCC) Seminoma of descended right testis (HCC) Procedures CT ABD/PEL WO IVCON CT ABD & PELVIS W/O CONTRAST Hardik Wilkerson A, DO [address] [place] [address] Ct Imaging [facility] Referral ID Status Reason Start Date Expiration Date Visits Requested Visits Authorized [id number] Authorized Auto-Generat ed Referral 04/28/2024 05/28/2025 1 1 Specialty Diagnoses / Procedures Referred By Contac t Referred To Contact CT IMAGING Diagnoses 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) Stage 3b chronic kidney disease (HCC) Seminoma of descended right testis (HCC) Procedures CT CHEST WO IVCON DIAGNOSTIC COMPUTED TOMOGRAPHY THORAX W/O CNTRST Hardik Wilkerson, DO [address] [place] [address] Ct Imaging [facility] Referral ID Status Reason Start Date Expiration Date Visits Requested Visits Authorized [id number] Authorized Auto-Generat ed Referral 04/28/2024 05/28/2025 1 1 Specialty Diagnoses / Procedures Referred By Contac t Referred To Contact CT IMAGING Diagnoses Malignant neoplasm of testicle, unspecified laterality, unspecified whether descended or undescended (HCC) Procedures CT ABD/PEL WO IVCON CT ABD & PELVIS W/O CONTRAST Antonio Brown MD [address] [place] [address] Ct Imaging [place] [address] Referral ID Status Reason Start Date Expiration Date Visits Requested Visits Authorized [id number] New Request Auto-Generat ed Referral 07/06/2024 08/05/2025 1 1 Specialty Diagnoses / Procedures Referred By Contac t Referred To Contact CT IMAGING Diagnoses Malignant neoplasm of testicle, unspecified laterality, unspecified whether descended or undescended (HCC) Procedures CT CHEST WO IVCON DIAGNOSTIC COMPUTED TOMOGRAPHY THORAX W/O CNTRST Antonio Brown MD [address] [place] [address] Ct Imaging [place] [address] Referral ID Status Reason Start Date Expiration Date Visits Requested Visits Authorized [id number] New Request Auto-Generat ed Referral 07/06/2024 08/05/2025 1 1 Specialty Diagnoses / Procedures Referred By Contac t Referred To Contact General Surgery Diagnoses 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) Procedures CONSULT TO GENERAL SURGERY Hardik Wilkerson, DO [address] [place] [address] [facility] [address] [place] [address] Referral ID Status Reason Start Date Expiration Date Visits Requested Visits Authorized [id number] Ref Not Required PCP Requested Referral 07/11/2024 07/08/2025 1 1 Referral ID Status Reason Start Date Expiration Date Visits Requested Visits Authorized [id number] New Request Auto-Generat ed Referral 11/06/2025 1 1 Specialty Diagnoses / Procedures Referred By Contac t Referred To Contact CT IMAGING Diagnoses Malignant neoplasm of testicle, unspecified laterality, unspecified whether descended or undescended (HCC) Procedures CT ABD/PEL W IVCON CT ABD & PELVIS W/CONTRAST Antonio Brown MD [address] [place] [address] [place] [address] Referral ID Status Reason Start Date Expiration Date Visits Requested Visits Authorized [id number] New Request Auto-Generat ed Referral 4 11/06/2025 1 1 Medications Administered Section Inactive Administered Medications - up to 3 most recent administrations Medication Order MAR Action Action Date Dose Rate Site CARBOplatin 450 mg in NaCl 0.9% 320 mL (PARAPLATIN) 450 mg (rounded from 473 mg, Target AUC = 5), INTRAVENOUS, Administer over 30 Minutes, ONCE, 1 dose, On Fri07/14/23 at 1400, exp 1400 07/15/23 (room temp) Hazardous Chemotherapy Drug: Use appropriate PPE. Antineoplastic Irritant. New Bag/Syringe/Bottle 07/14/2023 3:28 PM EDT 450 mg dexAMETHasone 10 mg in NaCl 0.9% 50 mL (DECADRON) 10 mg, INTRAVENOUS, ONCE, 1 dose, On Fri07/14/23 at 1330, Refrigerate. New Bag/Syringe/Bottle 07/14/2023 1:20 PM EDT 10 mg etoposide 180 mg in NaCl 0.9% 549 mL 180 mg (75 mg/m2 2.4 m2 Order-specific BSA), INTRAVENOUS, Administer over 1 Hours, ONCE, 1 dose, On Fri07/14/23 at 1330, EXP: Hazardous Chemotherapy Drug: Use appropriate PPE. Protect from Light. Administer with non-DEHP 0.2 micron filter and tubing. New Bag/Syringe/Bottle 07/14/2023 2:20 PM EDT 180 mg fosaprepitant 150 mg in NaCl 0.9% 250 mL (EMEND) 150 mg, INTRAVENOUS, Administer over 30 Minutes, ONCE, 1 dose, On Fri07/14/23 at 1330, Approximate Total Volume = 280 mL Mix in non-DEHP bag - Refrigerate New Bag/Syringe/Bottle 07/14/2023 1:47 PM EDT 150 mg palonosetron 0.25 mg injection (ALOXI) 0.25 mg, INTRAVENOUS, ONCE, 1 dose, On Fri07/14/23 at 1330, Flush IV line with NS prior to and following administration. Given 07/14/2023 1:20 PM EDT 0.25 mg Inactive Administered Medications - up to 3 most recent administrations Medication Order MAR Action Action Date Dose Rate Site dexAMETHasone 10 mg in NaCl 0.9% 50 mL (DECADRON) 10 mg, INTRAVENOUS, ONCE, 1 dose, On Fri07/16/23 at 1100, Refrigerate. New Bag/Syringe/Bottle 07/16/2023 10:52 AM EDT 10 mg etoposide 180 mg in NaCl 0.9% 549 mL 180 mg (75 mg/m2 2.4 m2 Order-specific BSA), INTRAVENOUS, Administer over 1 Hours, ONCE, 1 dose, On Fri07/16/23 at 1100, exp 1600 07/16/23 (room temp) Hazardous Chemotherapy Drug: Use appropriate PPE. Protect from Light. Administer with non-DEHP 0.2 micron filter and tubing. New Bag/Syringe/Bottle 07/16/2023 11:08 AM EDT 180 mg Inactive Administered Medications - up to 3 most recent administrations Medication Order MAR Action Action Date Dose Rate Site dexAMETHasone 10 mg in NaCl 0.9% 50 mL (DECADRON) 10 mg, INTRAVENOUS, ONCE, 1 dose, On Fri07/17/23 at 0930, Refrigerate. New Bag/Syringe/Bottle 07/17/2023 9:28 AM EDT 10 mg etoposide 180 mg in NaCl 0.9% 549 mL 180 mg (75 mg/m2 2.4 m2 Order-specific BSA), INTRAVENOUS, Administer over 1 Hours, ONCE, 1 dose, On Fri07/17/23 at 0930, Exp 07/17/23@1700 (room temp) Hazardous Chemotherapy Drug: Use appropriate PPE. Protect from Light. Administer with non-DEHP 0.2 micron filter and tubing. New Bag/Syringe/Bottle 07/17/2023 9:46 AM EDT 180 mg Inactive Administered Medications - up to 3 most recent administrations Medication Order MAR Action Action Date Dose Rate Site dexAMETHasone 10 mg in NaCl 0.9% 50 mL (DECADRON) 10 mg, INTRAVENOUS, ONCE, 1 dose, On Fri07/18/23 at 1330, Refrigerate. New Bag/Syringe/Bot tle 07/18/2023 1:13 PM EDT 10 mg 240 mL/hr etoposide 180 mg in NaCl 0.9% 549 mL 180 mg (75 mg/m2 2.4 m2 Order-specific BSA), INTRAVENOUS, Administer over 1 Hours, ONCE, 1 dose, On Fri07/18/23 at 1330, 07/18/23@1600 (room temp) Hazardous Chemotherapy Drug: Use appropriate PPE. Protect from Light. Administer with non-DEHP 0.2 micron filter and tubing. New Bag/Syringe/Bot tle 07/18/2023 1:36 PM EDT 180 mg 549 mL/hr pegfilgrastim 6 mg wearable injection (NEULASTA ONPRO) 6 mg, SUBCUTANEOUS, ONCE, 1 dose, On Fri07/18/23 at 1330, In order to administer the on-body injector, the device needs to be loaded with the drug by a medical professional. Once loaded, the medical professional has 3 minutes to apply the device to the patient. At that time, a cannula is inserted into the patient and an indicator light will flash a slow-green light which will indicate a functioning device. The device administers the drug to the patient 27 hours after it is applied and drug is delivered over 45 minutes. At the conclusion of the administration, the indicator light will turn to a solid green at which time the device can safely be removed by the patient. If the device fails, the indicator light will turn red. Refrigerate Given 07/18/2023 2:44 PM EDT 6 mg Abdominal Tissue Inactive Administered Medications - up to 3 most recent administrations Medication Order MAR Action Action Date Dose Rate Site CARBOplatin 550 mg in NaCl 0.9% 330 mL (PARAPLATIN) 550 mg (rounded from 572.5 mg, Target AUC = 5), INTRAVENOUS, Administer over 30 Minutes, ONCE, 1 dose, On Fri08/04/23 at 0800, exp 89908/05/23 (room temp) Hazardous Chemotherapy Drug: Use appropriate PPE. Antineoplastic Irritant. New Bag/Syringe/Bottle 08/04/2023 9:26 AM EDT 550 mg dexAMETHasone 10 mg in NaCl 0.9% 50 mL (DECADRON) 10 mg, INTRAVENOUS, ONCE, 1 dose, On Fri08/04/23 at 0800, Refrigerate. New Bag/Syringe/Bottle 08/04/2023 8:28 AM EDT 10 mg etoposide 180 mg in NaCl 0.9% 549 mL 180 mg (75 mg/m2 2.4 m2 Order-specific BSA), INTRAVENOUS, Administer over 1 Hours, ONCE, 1 dose, On Fri08/04/23 at 0800, exp 159908/05/23 (room temp) Hazardous Chemotherapy Drug: Use appropriate PPE. Protect from Light. Administer with non-DEHP 0.2 micron filter and tubing. New Bag/Syringe/Bottle 08/04/2023 10:02 AM EDT 180 mg fosaprepitant 150 mg in NaCl 0.9% 250 mL (EMEND) 150 mg, INTRAVENOUS, Administer over 30 Minutes, ONCE, 1 dose, On Fri08/04/23 at 0800, Approximate Total Volume = 280 mL Mix in non-DEHP bag - Refrigerate New Bag/Syringe/Bottle 08/04/2023 8:47 AM EDT 150 mg palonosetron 0.25 mg injection (ALOXI) 0.25 mg, INTRAVENOUS, ONCE, 1 dose, On Fri08/04/23 at 0800, Flush IV line with NS prior to and following administration. Given 08/04/2023 8:26 AM EDT 0.25 mg Inactive Administered Medications - up to 3 most recent administrations Medication Order MAR Action Action Date Dose Rate Site dexAMETHasone 10 mg in NaCl 0.9% 50 mL (DECADRON) 10 mg, INTRAVENOUS, ONCE, 1 dose, On Fri08/06/23 at 1400, Refrigerate. New Bag/Syringe/Bottle 08/06/2023 1:58 PM EDT 10 mg etoposide 180 mg in NaCl 0.9% 549 mL 180 mg (75 mg/m2 2.4 m2 Order-specific BSA), INTRAVENOUS, Administer over 1 Hours, ONCE, 1 dose, On Fri08/06/23 at 1400, exp 159908/06/23 (room temp) Hazardous Chemotherapy Drug: Use appropriate PPE. Protect from Light. Administer with non-DEHP 0.2 micron filter and tubing. New Bag/Syringe/Bottle 08/06/2023 2:16 PM EDT 180 mg Inactive Administered Medications - up to 3 most recent administrations Medication Order MAR Action Action Date Dose Rate Site dexAMETHasone 10 mg in NaCl 0.9% 50 mL (DECADRON) 10 mg, INTRAVENOUS, ONCE, 1 dose, On Krista 08/07/23 at 0900, Refrigerate. New Bag/Syringe/Bottle 08/07/2023 9:15 AM EDT 10 mg 230 mL/hr etoposide 180 mg in NaCl 0.9% 549 mL 180 mg (75 mg/m2 2.4 m2 Order-specific BSA), INTRAVENOUS, Administer over 1 Hours, ONCE, 1 dose, On Krista 08/07/23 at 0900, exp 1900 08/07/23 (room temp) Hazardous Chemotherapy Drug: Use appropriate PPE. Protect from Light. Administer with non-DEHP 0.2 micron filter and tubing. New Bag/Syringe/Bottle 08/07/2023 9:43 AM EDT 180 mg 549 mL/hr Inactive Administered Medications - up to 3 most recent administrations Medication Order MAR Action Action Date Dose Rate Site dexAMETHasone 10 mg in NaCl 0.9% 50 mL (DECADRON) 10 mg, INTRAVENOUS, ONCE, 1 dose, On Fri08/08/23 at 1430, Refrigerate. New Bag/Syringe/Bottle 08/08/2023 2:15 PM EDT 10 mg etoposide 180 mg in NaCl 0.9% 549 mL 180 mg (75 mg/m2 2.4 m2 Order-specific BSA), INTRAVENOUS, Administer over 1 Hours, ONCE, 1 dose, On Fri08/08/23 at 1430, exp 1700 08/09/23 (room temp) Hazardous Chemotherapy Drug: Use appropriate PPE. Protect from Light. Administer with non-DEHP 0.2 micron filter and tubing. New Bag/Syringe/Bottle 08/08/2023 2:36 PM EDT 180 mg pegfilgrastim 6 mg wearable injection (NEULASTA ONPRO) 6 mg, SUBCUTANEOUS, ONCE, 1 dose, On Fri08/08/23 at 1430, In order to administer the on-body injector, the device needs to be loaded with the drug by a medical professional. Once loaded, the medical professional has 3 minutes to apply the device to the patient. At that time, a cannula is inserted into the patient and an indicator light will flash a slow-green light which will indicate a functioning device. The device administers the drug to the patient 27 hours after it is applied and drug is delivered over 45 minutes. At the conclusion of the administration, the indicator light will turn to a solid green at which time the device can safely be removed by the patient. If the device fails, the indicator light will turn red. Refrigerate Given 08/08/2023 2:40 PM EDT 6 mg Abdomen, LLQ Inactive Administered Medications - up to 3 most recent administrations Medication Order MAR Action Action Date Dose Rate Site CARBOplatin 496.5 mg in NaCl 0.9% 324.65 mL (PARAPLATIN) 496.5 mg (Target AUC = 5), INTRAVENOUS, Administer over 30 Minutes, ONCE, 1 dose, On Fri08/25/23 at 1430, exp 1500 08/26/23 (room temp) Hazardous Chemotherapy Drug: Use appropriate PPE. Antineoplastic Irritant. New Bag/Syringe/Bottle 08/25/2023 3:20 PM EDT 496.5 mg 648 mL/hr dexAMETHasone 10 mg in NaCl 0.9% 50 mL (DECADRON) 10 mg, INTRAVENOUS, ONCE, 1 dose, On Fri08/25/23 at 1430, Refrigerate. New Bag/Syringe/Bottle 08/25/2023 2:29 PM EDT 10 mg 230 mL/hr etoposide 180 mg in NaCl 0.9% 549 mL 180 mg (75 mg/m2 2.4 m2 Order-specific BSA), INTRAVENOUS, Administer over 1 Hours, ONCE, 1 dose, On Fri08/25/23 at 1430, exp 2100 08/26/23 (room temp) Hazardous Chemotherapy Drug: Use appropriate PPE. Protect from Light. Administer with non-DEHP 0.2 micron filter and tubing. New Bag/Syringe/Bottle 08/25/2023 3:53 PM EDT 180 mg 549 mL/hr fosaprepitant 150 mg in NaCl 0.9% 250 mL (EMEND) 150 mg, INTRAVENOUS, Administer over 30 Minutes, ONCE, 1 dose, On Fri08/25/23 at 1430, Approximate Total Volume = 280 mL Mix in non-DEHP bag - Refrigerate New Bag/Syringe/Bottle 08/25/2023 2:49 PM EDT 150 mg 560 mL/hr palonosetron 0.25 mg injection (ALOXI) 0.25 mg, INTRAVENOUS, ONCE, 1 dose, On Fri08/25/23 at 1430, Flush IV line with NS prior to and following administration. Given 08/25/2023 2:29 PM EDT 0.25 mg Inactive Administered Medications - up to 3 most recent administrations Medication Order MAR Action Action Date Dose Rate Site dexAMETHasone 10 mg in NaCl 0.9% 50 mL (DECADRON) 10 mg, INTRAVENOUS, ONCE, 1 dose, On Fri08/26/23 at 1330, Refrigerate. New Bag/Syringe/Bottle 08/26/2023 1:33 PM EDT 10 mg etoposide 180 mg in NaCl 0.9% 549 mL 180 mg (75 mg/m2 2.4 m2 Order-specific BSA), INTRAVENOUS, Administer over 1 Hours, ONCE, 1 dose, On Fri08/26/23 at 1330, exp 2200 08/26/23 (room temp) Hazardous Chemotherapy Drug: Use appropriate PPE. Protect from Light. Administer with non-DEHP 0.2 micron filter and tubing. New Bag/Syringe/Bottle 08/26/2023 1:50 PM EDT 180 mg Inactive Administered Medications - up to 3 most recent administrations Medication Order MAR Action Action Date Dose Rate Site dexAMETHasone 10 mg in NaCl 0.9% 50 mL (DECADRON) 10 mg, INTRAVENOUS, ONCE, 1 dose, On Fri08/27/23 at 1430, Refrigerate. New Bag/Syringe/Bottle 08/27/2023 2:21 PM EDT 10 mg etoposide 180 mg in NaCl 0.9% 549 mL 180 mg (75 mg/m2 2.4 m2 Order-specific BSA), INTRAVENOUS, Administer over 1 Hours, ONCE, 1 dose, On Fri08/27/23 at 1430, exp 1800 08/27/23 (room temp) Hazardous Chemotherapy Drug: Use appropriate PPE. Protect from Light. Administer with non-DEHP 0.2 micron filter and tubing. New Bag/Syringe/Bottle 08/27/2023 2:44 PM EDT 180 mg Inactive Administered Medications - up to 3 most recent administrations Medication Order MAR Action Action Date Dose Rate Site CARBOplatin 500 mg in NaCl 0.9% 325 mL (PARAPLATIN) 500 mg (rounded from 548.5 mg, Target AUC = 5), INTRAVENOUS, Administer over 30 Minutes, ONCE, 1 dose, On Fri09/16/23 at 1200, exp 1230 09/17/23 (room temp). Hazardous Chemotherapy Drug: Use appropriate PPE. Antineoplastic Irritant. New Bag/Syringe/Bottle 09/16/2023 1:17 PM EDT 500 mg dexAMETHasone 10 mg in NaCl 0.9% 50 mL (DECADRON) 10 mg, INTRAVENOUS, ONCE, 1 dose, On Fri09/16/23 at 1200, Refrigerate. New Bag/Syringe/Bottle 09/16/2023 12:02 PM EDT 10 mg etoposide 254 mg in NaCl 0.9% 1,062.7 mL 254 mg (100 mg/m2 2.54 m2 Treatment Plan BSA from Recorded weight), INTRAVENOUS, Administer over 1 Hours, ONCE, 1 dose, On Fri09/16/23 at 1200, exp 179909/17/23 (room temp) Hazardous Chemotherapy Drug: Use appropriate PPE. Protect from Light. Administer with non-DEHP 0.2 micron filter and tubing. New Bag/Syringe/Bottle 09/16/2023 1:56 PM EDT 254 mg fosaprepitant 150 mg in NaCl 0.9% 250 mL (EMEND) 150 mg, INTRAVENOUS, Administer over 30 Minutes, ONCE, 1 dose, On Fri09/16/23 at 1200, Approximate Total Volume = 280 mL Mix in non-DEHP bag - Refrigerate New Bag/Syringe/Bottle 09/16/2023 12:43 PM EDT 150 mg palonosetron 0.25 mg injection (ALOXI) 0.25 mg, INTRAVENOUS, ONCE, 1 dose, On Fri09/16/23 at 1200, Flush IV line with NS prior to and following administration. Given 09/16/2023 12:02 PM EDT 0.25 mg Inactive Administered Medications - up to 3 most recent administrations Medication Order MAR Action Action Date Dose Rate Site dexAMETHasone 10 mg in NaCl 0.9% 50 mL (DECADRON) 10 mg, INTRAVENOUS, ONCE, 1 dose, On Fri09/17/23 at 0900, Refrigerate. New Bag/Syringe/Bottle 09/17/2023 8:51 AM EDT 10 mg etoposide 254 mg in NaCl 0.9% 1,062.7 mL 254 mg (100 mg/m2 2.54 m2 Treatment Plan BSA from Recorded weight), INTRAVENOUS, Administer over 1 Hours, ONCE, 1 dose, On Fri09/17/23 at 0900, exp 179909/17/23 (room temp) Hazardous Chemotherapy Drug: Use appropriate PPE. Protect from Light. Administer with non-DEHP 0.2 micron filter and tubing. New Bag/Syringe/Bottle 09/17/2023 9:20 AM EDT 254 mg Inactive Administered Medications - up to 3 most recent administrations Medication Order MAR Action Action Date Dose Rate Site dexAMETHasone 10 mg in NaCl 0.9% 50 mL (DECADRON) 10 mg, INTRAVENOUS, ONCE, 1 dose, On Fri09/19/23 at 0800, Refrigerate. New Bag/Syringe/Bottl e 09/19/2023 7:59 AM EDT 10 mg etoposide 254 mg in NaCl 0.9% 1,062.7 mL 254 mg (100 mg/m2 2.54 m2 Treatment Plan BSA from Recorded weight), INTRAVENOUS, Administer over 1 Hours, ONCE, 1 dose, On Fri09/19/23 at 0800, exp 1700 09/19/23 (room temp) Hazardous Chemotherapy Drug: Use appropriate PPE. Protect from Light. Administer with non-DEHP 0.2 micron filter and tubing. New Bag/Syringe/Bottl e 09/19/2023 8:16 AM EDT 254 mg pegfilgrastim 6 mg wearable injection (NEULASTA ONPRO) 6 mg, SUBCUTANEOUS, ONCE, 1 dose, On Fri09/19/23 at 1000, Refrigerate Given 09/19/2023 9:53 AM EDT 6 mg Abdominal Tissue Summary Purpose Additional Source Comments Source Comments (unrecognize d section and content) In the event this informatio n is protected by the Federal Confidentiality of Alcohol and Drug Abuse Patient Records regulations: The Federal rules restrict any use of the information to criminally investigate or prosecute any alcohol or drug abuse patient.[facility] the event this information is protected by the Federal Confidentiality of Alcohol and Drug Abuse Patient Records regulations: The Federal rules restrict any use of the information to criminally investigate or prosecute any alcohol or drug abuse patient.[facility] HospitalIn the event this information is protected by the Federal Confidentiality of Alcohol and Drug Abuse Patient Records regulations: The Federal rules restrict any use of the information to criminally investigate or prosecute any alcohol or drug abuse patient.[facility] HospitalIn the event this information is protected by the Federal Confidentiality of Alcohol and Drug Abuse Patient Records regulations: The Federal rules restrict any use of the information to criminally investigate or prosecute any alcohol or drug abuse patient.[facility] HospitalIn the event this information is protected by the Federal Confidentiality of Alcohol and Drug Abuse Patient Records regulations: The Federal rules restrict any use of the information to criminally investigate or prosecute any alcohol or drug abuse patient.[facility] HospitalIn the event this information is protected by the Federal Confidentiality of Alcohol and Drug Abuse Patient Records regulations: The Federal rules restrict any use of the information to criminally investigate or prosecute any alcohol or drug abuse patient.[facility] HospitalIn the event this information is protected by the Federal Confidentiality of Alcohol and Drug Abuse Patient Records regulations: The Federal rules restrict any use of the information to criminally investigate or prosecute any alcohol or drug abuse patient.[facility] HospitalIn the event this information is protected by the Federal Confidentiality of Alcohol and Drug Abuse Patient Records regulations: The Federal rules restrict any use of the information to criminally investigate or prosecute any alcohol or drug abuse patient.[facility] HospitalIn the event this information is protected by the Federal Confidentiality of Alcohol and Drug Abuse Patient Records regulations: The Federal rules restrict any use of the information to criminally investigate or prosecute any alcohol or drug abuse patient.[facility] HospitalIn the event this information is protected by the Federal Confidentiality of Alcohol and Drug Abuse Patient Records regulations: The Federal rules restrict any use of the information to criminally investigate or prosecute any alcohol or drug abuse patient.[facility] HospitalIn the event this information is protected by the Federal Confidentiality of Alcohol and Drug Abuse Patient Records regulations: The Federal rules restrict any use of the information to criminally investigate or prosecute any alcohol or drug abuse patient.[facility] HospitalIn the event this information is protected by the Federal Confidentiality of Alcohol and Drug Abuse Patient Records regulations: The Federal rules restrict any use of the information to criminally investigate or prosecute any alcohol or drug abuse patient.[facility] HospitalIn the event this information is protected by the Federal Confidentiality of Alcohol and Drug Abuse Patient Records regulations: The Federal rules restrict any use of the information to criminally investigate or prosecute any alcohol or drug abuse patient.[facility] HospitalIn the event this information is protected by the Federal Confidentiality of Alcohol and Drug Abuse Patient Records regulations: The Federal rules restrict any use of the information to criminally investigate or prosecute any alcohol or drug abuse patient.[facility] HospitalIn the event this information is protected by the Federal Confidentiality of Alcohol and Drug Abuse Patient Records regulations: The Federal rules restrict any use of the information to criminally investigate or prosecute any alcohol or drug abuse patient.[facility] HospitalIn the event this information is protected by the Federal Confidentiality of Alcohol and Drug Abuse Patient Records regulations: The Federal rules restrict any use of the information to criminally investigate or prosecute any alcohol or drug abuse patient.[facility] HospitalIn the event this information is protected by the Federal Confidentiality of Alcohol and Drug Abuse Patient Records regulations: The Federal rules restrict any use of the information to criminally investigate or prosecute any alcohol or drug abuse patient.[facility] HospitalIn the event this information is protected by the Federal Confidentiality of Alcohol and Drug Abuse Patient Records regulations: The Federal rules restrict any use of the information to criminally investigate or prosecute any alcohol or drug abuse patient.[facility] HospitalIn the event this information is protected by the Federal Confidentiality of Alcohol and Drug Abuse Patient Records regulations: The Federal rules restrict any use of the information to criminally investigate or prosecute any alcohol or drug abuse patient.[facility] HospitalIn the event this information is protected by the Federal Confidentiality of Alcohol and Drug Abuse Patient Records regulations: The Federal rules restrict any use of the information to criminally investigate or prosecute any alcohol or drug abuse patient.[facility] HospitalIn the event this information is protected by the Federal Confidentiality of Alcohol and Drug Abuse Patient Records regulations: The Federal rules restrict any use of the information to criminally investigate or prosecute any alcohol or drug abuse patient.[facility] HospitalIn the event this information is protected by the Federal Confidentiality of Alcohol and Drug Abuse Patient Records regulations: The Federal rules restrict any use of the information to criminally investigate or prosecute any alcohol or drug abuse patient.[facility] HospitalIn the event this information is protected by the Federal Confidentiality of Alcohol and Drug Abuse Patient Records regulations: The Federal rules restrict any use of the information to criminally investigate or prosecute any alcohol or drug abuse patient.[facility] HospitalIn the event this information is protected by the Federal Confidentiality of Alcohol and Drug Abuse Patient Records regulations: The Federal rules restrict any use of the information to criminally investigate or prosecute any alcohol or drug abuse patient.[facility] HospitalIn the event this information is protected by the Federal Confidentiality of Alcohol and Drug Abuse Patient Records regulations: The Federal rules restrict any use of the information to criminally investigate or prosecute any alcohol or drug abuse patient.[facility] HospitalIn the event this information is protected by the Federal Confidentiality of Alcohol and Drug Abuse Patient Records regulations: The Federal rules restrict any use of the information to criminally investigate or prosecute any alcohol or drug abuse patient.[facility] HospitalIn the event this information is protected by the Federal Confidentiality of Alcohol and Drug Abuse Patient Records regulations: The Federal rules restrict any use of the information to criminally investigate or prosecute any alcohol or drug abuse patient.[facility] HospitalIn the event this information is protected by the Federal Confidentiality of Alcohol and Drug Abuse Patient Records regulations: The Federal rules restrict any use of the information to criminally investigate or prosecute any alcohol or drug abuse patient.[facility] HospitalIn the event this information is protected by the Federal Confidentiality of Alcohol and Drug Abuse Patient Records regulations: The Federal rules restrict any use of the information to criminally investigate or prosecute any alcohol or drug abuse patient.[facility] HospitalIn the event this information is protected by the Federal Confidentiality of Alcohol and Drug Abuse Patient Records regulations: The Federal rules restrict any use of the information to criminally investigate or prosecute any alcohol or drug abuse patient.[facility] HospitalIn the event this information is protected by the Federal Confidentiality of Alcohol and Drug Abuse Patient Records regulations: The Federal rules restrict any use of the information to criminally investigate or prosecute any alcohol or drug abuse patient.[facility] HospitalIn the event this information is protected by the Federal Confidentiality of Alcohol and Drug Abuse Patient Records regulations: The Federal rules restrict any use of the information to criminally investigate or prosecute any alcohol or drug abuse patient.[facility] HospitalIn the event this information is protected by the Federal Confidentiality of Alcohol and Drug Abuse Patient Records regulations: The Federal rules restrict any use of the information to criminally investigate or prosecute any alcohol or drug abuse patient.[facility] HospitalIn the event this information is protected by the Federal Confidentiality of Alcohol and Drug Abuse Patient Records regulations: The Federal rules restrict any use of the information to criminally investigate or prosecute any alcohol or drug abuse patient.[facility] HospitalIn the event this information is protected by the Federal Confidentiality of Alcohol and Drug Abuse Patient Records regulations: The Federal rules restrict any use of the information to criminally investigate or prosecute any alcohol or drug abuse patient.[facility] HospitalIn the event this information is protected by the Federal Confidentiality of Alcohol and Drug Abuse Patient Records regulations: The Federal rules restrict any use of the information to criminally investigate or prosecute any alcohol or drug abuse patient.[facility] HospitalIn the event this information is protected by the Federal Confidentiality of Alcohol and Drug Abuse Patient Records regulations: The Federal rules restrict any use of the information to criminally investigate or prosecute any alcohol or drug abuse patient.[facility] HospitalIn the event this information is protected by the Federal Confidentiality of Alcohol and Drug Abuse Patient Records regulations: The Federal rules restrict any use of the information to criminally investigate or prosecute any alcohol or drug abuse patient.[facility] HospitalIn the event this information is protected by the Federal Confidentiality of Alcohol and Drug Abuse Patient Records regulations: The Federal rules restrict any use of the information to criminally investigate or prosecute any alcohol or drug abuse patient.[facility] HospitalIn the event this information is protected by the Federal Confidentiality of Alcohol and Drug Abuse Patient Records regulations: The Federal rules restrict any use of the information to criminally investigate or prosecute any alcohol or drug abuse patient.[facility] HospitalIn the event this information is protected by the Federal Confidentiality of Alcohol and Drug Abuse Patient Records regulations: The Federal rules restrict any use of the information to criminally investigate or prosecute any alcohol or drug abuse patient.[facility] HospitalIn the event this information is protected by the Federal Confidentiality of Alcohol and Drug Abuse Patient Records regulations: The Federal rules restrict any use of the information to criminally investigate or prosecute any alcohol or drug abuse patient.[facility] HospitalIn the event this information is protected by the Federal Confidentiality of Alcohol and Drug Abuse Patient Records regulations: The Federal rules restrict any use of the information to criminally investigate or prosecute any alcohol or drug abuse patient.[facility] HospitalIn the event this information is protected by the Federal Confidentiality of Alcohol and Drug Abuse Patient Records regulations: The Federal rules restrict any use of the information to criminally investigate or prosecute any alcohol or drug abuse patient.[facility] HospitalIn the event this information is protected by the Federal Confidentiality of Alcohol and Drug Abuse Patient Records regulations: The Federal rules restrict any use of the information to criminally investigate or prosecute any alcohol or drug abuse patient.[facility] HospitalIn the event this information is protected by the Federal Confidentiality of Alcohol and Drug Abuse Patient Records regulations: The Federal rules restrict any use of the information to criminally investigate or prosecute any alcohol or drug abuse patient.[facility] HospitalIn the event this information is protected by the Federal Confidentiality of Alcohol and Drug Abuse Patient Records regulations: The Federal rules restrict any use of the information to criminally investigate or prosecute any alcohol or drug abuse patient.[facility] HospitalIn the event this information is protected by the Federal Confidentiality of Alcohol and Drug Abuse Patient Records regulations: The Federal rules restrict any use of the information to criminally investigate or prosecute any alcohol or drug abuse patient.[facility] HospitalIn the event this information is protected by the Federal Confidentiality of Alcohol and Drug Abuse Patient Records regulations: The Federal rules restrict any use of the information to criminally investigate or prosecute any alcohol or drug abuse patient.[facility] HospitalIn the event this information is protected by the Federal Confidentiality of Alcohol and Drug Abuse Patient Records regulations: The Federal rules restrict any use of the information to criminally investigate or prosecute any alcohol or drug abuse patient.[facility] HospitalIn the event this information is protected by the Federal Confidentiality of Alcohol and Drug Abuse Patient Records regulations: The Federal rules restrict any use of the information to criminally investigate or prosecute any alcohol or drug abuse patient.[facility] HospitalIn the event this information is protected by the Federal Confidentiality of Alcohol and Drug Abuse Patient Records regulations: The Federal rules restrict any use of the information to criminally investigate or prosecute any alcohol or drug abuse patient.[facility] HospitalIn the event this information is protected by the Federal Confidentiality of Alcohol and Drug Abuse Patient Records regulations: The Federal rules restrict any use of the information to criminally investigate or prosecute any alcohol or drug abuse patient.[facility] HospitalIn the event this information is protected by the Federal Confidentiality of Alcohol and Drug Abuse Patient Records regulations: The Federal rules restrict any use of the information to criminally investigate or prosecute any alcohol or drug abuse patient.[facility] HospitalIn the event this information is protected by the Federal Confidentiality of Alcohol and Drug Abuse Patient Records regulations: The Federal rules restrict any use of the information to criminally investigate or prosecute any alcohol or drug abuse patient.[facility] HospitalIn the event this information is protected by the Federal Confidentiality of Alcohol and Drug Abuse Patient Records regulations: The Federal rules restrict any use of the information to criminally investigate or prosecute any alcohol or drug abuse patient.[facility] HospitalIn the event this information is protected by the Federal Confidentiality of Alcohol and Drug Abuse Patient Records regulations: The Federal rules restrict any use of the information to criminally investigate or prosecute any alcohol or drug abuse patient.[facility] HospitalIn the event this information is protected by the Federal Confidentiality of Alcohol and Drug Abuse Patient Records regulations: The Federal rules restrict any use of the information to criminally investigate or prosecute any alcohol or drug abuse patient.[facility] HospitalIn the event this information is protected by the Federal Confidentiality of Alcohol and Drug Abuse Patient Records regulations: The Federal rules restrict any use of the information to criminally investigate or prosecute any alcohol or drug abuse patient.[facility] HospitalIn the event this information is protected by the Federal Confidentiality of Alcohol and Drug Abuse Patient Records regulations: The Federal rules restrict any use of the information to criminally investigate or prosecute any alcohol or drug abuse patient.[facility] HospitalIn the event this information is protected by the Federal Confidentiality of Alcohol and Drug Abuse Patient Records regulations: The Federal rules restrict any use of the information to criminally investigate or prosecute any alcohol or drug abuse patient.[facility] HospitalIn the event this information is protected by the Federal Confidentiality of Alcohol and Drug Abuse Patient Records regulations: The Federal rules restrict any use of the information to criminally investigate or prosecute any alcohol or drug abuse patient.[facility] HospitalIn the event this information is protected by the Federal Confidentiality of Alcohol and Drug Abuse Patient Records regulations: The Federal rules restrict any use of the information to criminally investigate or prosecute any alcohol or drug abuse patient.[facility] HospitalIn the event this information is protected by the Federal Confidentiality of Alcohol and Drug Abuse Patient Records regulations: The Federal rules restrict any use of the information to criminally investigate or prosecute any alcohol or drug abuse patient.[facility] HospitalIn the event this information is protected by the Federal Confidentiality of Alcohol and Drug Abuse Patient Records regulations: The Federal rules restrict any use of the information to criminally investigate or prosecute any alcohol or drug abuse patient.[facility] HospitalIn the event this information is protected by the Federal Confidentiality of Alcohol and Drug Abuse Patient Records regulations: The Federal rules restrict any use of the information to criminally investigate or prosecute any alcohol or drug abuse patient.[facility] HospitalIn the event this information is protected by the Federal Confidentiality of Alcohol and Drug Abuse Patient Records regulations: The Federal rules restrict any use of the information to criminally investigate or prosecute any alcohol or drug abuse patient.[facility] HospitalIn the event this information is protected by the Federal Confidentiality of Alcohol and Drug Abuse Patient Records regulations: The Federal rules restrict any use of the information to criminally investigate or prosecute any alcohol or drug abuse patient.[facility] HospitalIn the event this information is protected by the Federal Confidentiality of Alcohol and Drug Abuse Patient Records regulations: The Federal rules restrict any use of the information to criminally investigate or prosecute any alcohol or drug abuse patient.[facility] HospitalIn the event this information is protected by the Federal Confidentiality of Alcohol and Drug Abuse Patient Records regulations: The Federal rules restrict any use of the information to criminally investigate or prosecute any alcohol or drug abuse patient.[facility] HospitalIn the event this information is protected by the Federal Confidentiality of Alcohol and Drug Abuse Patient Records regulations: The Federal rules restrict any use of the information to criminally investigate or prosecute any alcohol or drug abuse patient.[facility] HospitalIn the event this information is protected by the Federal Confidentiality of Alcohol and Drug Abuse Patient Records regulations: The Federal rules restrict any use of the information to criminally investigate or prosecute any alcohol or drug abuse patient.[facility] HospitalIn the event this information is protected by the Federal Confidentiality of Alcohol and Drug Abuse Patient Records regulations: The Federal rules restrict any use of the information to criminally investigate or prosecute any alcohol or drug abuse patient.[facility] HospitalIn the event this information is protected by the Federal Confidentiality of Alcohol and Drug Abuse Patient Records regulations: The Federal rules restrict any use of the information to criminally investigate or prosecute any alcohol or drug abuse patient.[facility] HospitalIn the event this information is protected by the Federal Confidentiality of Alcohol and Drug Abuse Patient Records regulations: The Federal rules restrict any use of the information to criminally investigate or prosecute any alcohol or drug abuse patient.[facility] HospitalIn the event this information is protected by the Federal Confidentiality of Alcohol and Drug Abuse Patient Records regulations: The Federal rules restrict any use of the information to criminally investigate or prosecute any alcohol or drug abuse patient.[facility] HospitalIn the event this information is protected by the Federal Confidentiality of Alcohol and Drug Abuse Patient Records regulations: The Federal rules restrict any use of the information to criminally investigate or prosecute any alcohol or drug abuse patient.[facility] HospitalIn the event this information is protected by the Federal Confidentiality of Alcohol and Drug Abuse Patient Records regulations: The Federal rules restrict any use of the information to criminally investigate or prosecute any alcohol or drug abuse patient.[facility] HospitalIn the event this information is protected by the Federal Confidentiality of Alcohol and Drug Abuse Patient Records regulations: The Federal rules restrict any use of the information to criminally investigate or prosecute any alcohol or drug abuse patient.[facility] HospitalIn the event this information is protected by the Federal Confidentiality of Alcohol and Drug Abuse Patient Records regulations: The Federal rules restrict any use of the information to criminally investigate or prosecute any alcohol or drug abuse patient.[facility] HospitalIn the event this information is protected by the Federal Confidentiality of Alcohol and Drug Abuse Patient Records regulations: The Federal rules restrict any use of the information to criminally investigate or prosecute any alcohol or drug abuse patient.[facility] HospitalIn the event this information is protected by the Federal Confidentiality of Alcohol and Drug Abuse Patient Records regulations: The Federal rules restrict any use of the information to criminally investigate or prosecute any alcohol or drug abuse patient.[facility] HospitalIn the event this information is protected by the Federal Confidentiality of Alcohol and Drug Abuse Patient Records regulations: The Federal rules restrict any use of the information to criminally investigate or prosecute any alcohol or drug abuse patient.[facility] HospitalIn the event this information is protected by the Federal Confidentiality of Alcohol and Drug Abuse Patient Records regulations: The Federal rules restrict any use of the information to criminally investigate or prosecute any alcohol or drug abuse patient.[facility] HospitalIn the event this information is protected by the Federal Confidentiality of Alcohol and Drug Abuse Patient Records regulations: The Federal rules restrict any use of the information to criminally investigate or prosecute any alcohol or drug abuse patient.[facility] HospitalIn the event this information is protected by the Federal Confidentiality of Alcohol and Drug Abuse Patient Records regulations: The Federal rules restrict any use of the information to criminally investigate or prosecute any alcohol or drug abuse patient.[facility] HospitalIn the event this information is protected by the Federal Confidentiality of Alcohol and Drug Abuse Patient Records regulations: The Federal rules restrict any use of the information to criminally investigate or prosecute any alcohol or drug abuse patient.[facility] HospitalIn the event this information is protected by the Federal Confidentiality of Alcohol and Drug Abuse Patient Records regulations: The Federal rules restrict any use of the information to criminally investigate or prosecute any alcohol or drug abuse patient.[facility] HospitalIn the event this information is protected by the Federal Confidentiality of Alcohol and Drug Abuse Patient Records regulations: The Federal rules restrict any use of the information to criminally investigate or prosecute any alcohol or drug abuse patient.[facility] HospitalIn the event this information is protected by the Federal Confidentiality of Alcohol and Drug Abuse Patient Records regulations: The Federal rules restrict any use of the information to criminally investigate or prosecute any alcohol or drug abuse patient.[facility] HospitalIn the event this information is protected by the Federal Confidentiality of Alcohol and Drug Abuse Patient Records regulations: The Federal rules restrict any use of the information to criminally investigate or prosecute any alcohol or drug abuse patient.[facility] HospitalIn the event this information is protected by the Federal Confidentiality of Alcohol and Drug Abuse Patient Records regulations: The Federal rules restrict any use of the information to criminally investigate or prosecute any alcohol or drug abuse patient.[facility] HospitalIn the event this information is protected by the Federal Confidentiality of Alcohol and Drug Abuse Patient Records regulations: The Federal rules restrict any use of the information to criminally investigate or prosecute any alcohol or drug abuse patient.[facility] HospitalIn the event this information is protected by the Federal Confidentiality of Alcohol and Drug Abuse Patient Records regulations: The Federal rules restrict any use of the information to criminally investigate or prosecute any alcohol or drug abuse patient.[facility] HospitalIn the event this information is protected by the Federal Confidentiality of Alcohol and Drug Abuse Patient Records regulations: The Federal rules restrict any use of the information to criminally investigate or prosecute any alcohol or drug abuse patient.[facility] HospitalIn the event this information is protected by the Federal Confidentiality of Alcohol and Drug Abuse Patient Records regulations: The Federal rules restrict any use of the information to criminally investigate or prosecute any alcohol or drug abuse patient.[facility] HospitalIn the event this information is protected by the Federal Confidentiality of Alcohol and Drug Abuse Patient Records regulations: The Federal rules restrict any use of the information to criminally investigate or prosecute any alcohol or drug abuse patient.[facility] HospitalIn the event this information is protected by the Federal Confidentiality of Alcohol and Drug Abuse Patient Records regulations: The Federal rules restrict any use of the information to criminally investigate or prosecute any alcohol or drug abuse patient.[facility] HospitalIn the event this information is protected by the Federal Confidentiality of Alcohol and Drug Abuse Patient Records regulations: The Federal rules restrict any use of the information to criminally investigate or prosecute any alcohol or drug abuse patient.[facility] HospitalIn the event this information is protected by the Federal Confidentiality of Alcohol and Drug Abuse Patient Records regulations: The Federal rules restrict any use of the information to criminally investigate or prosecute any alcohol or drug abuse patient.[facility] HospitalIn the event this information is protected by the Federal Confidentiality of Alcohol and Drug Abuse Patient Records regulations: The Federal rules restrict any use of the information to criminally investigate or prosecute any alcohol or drug abuse patient.[facility] HospitalIn the event this information is protected by the Federal Confidentiality of Alcohol and Drug Abuse Patient Records regulations: The Federal rules restrict any use of the information to criminally investigate or prosecute any alcohol or drug abuse patient.[facility] HospitalIn the event this information is protected by the Federal Confidentiality of Alcohol and Drug Abuse Patient Records regulations: The Federal rules restrict any use of the information to criminally investigate or prosecute any alcohol or drug abuse patient.[facility] HospitalIn the event this information is protected by the Federal Confidentiality of Alcohol and Drug Abuse Patient Records regulations: The Federal rules restrict any use of the information to criminally investigate or prosecute any alcohol or drug abuse patient.[facility] HospitalIn the event this information is protected by the Federal Confidentiality of Alcohol and Drug Abuse Patient Records regulations: The Federal rules restrict any use of the information to criminally investigate or prosecute any alcohol or drug abuse patient.[facility] HospitalIn the event this information is protected by the Federal Confidentiality of Alcohol and Drug Abuse Patient Records regulations: The Federal rules restrict any use of the information to criminally investigate or prosecute any alcohol or drug abuse patient.[facility] HospitalIn the event this information is protected by the Federal Confidentiality of Alcohol and Drug Abuse Patient Records regulations: The Federal rules restrict any use of the information to criminally investigate or prosecute any alcohol or drug abuse patient.[facility] HospitalIn the event this information is protected by the Federal Confidentiality of Alcohol and Drug Abuse Patient Records regulations: The Federal rules restrict any use of the information to criminally investigate or prosecute any alcohol or drug abuse patient.[facility] HospitalIn the event this information is protected by the Federal Confidentiality of Alcohol and Drug Abuse Patient Records regulations: The Federal rules restrict any use of the information to criminally investigate or prosecute any alcohol or drug abuse patient.[facility] HospitalIn the event this information is protected by the Federal Confidentiality of Alcohol and Drug Abuse Patient Records regulations: The Federal rules restrict any use of the information to criminally investigate or prosecute any alcohol or drug abuse patient.[facility] HospitalIn the event this information is protected by the Federal Confidentiality of Alcohol and Drug Abuse Patient Records regulations: The Federal rules restrict any use of the information to criminally investigate or prosecute any alcohol or drug abuse patient.[facility] HospitalIn the event this information is protected by the Federal Confidentiality of Alcohol and Drug Abuse Patient Records regulations: The Federal rules restrict any use of the information to criminally investigate or prosecute any alcohol or drug abuse patient.[facility] HospitalIn the event this information is protected by the Federal Confidentiality of Alcohol and Drug Abuse Patient Records regulations: The Federal rules restrict any use of the information to criminally investigate or prosecute any alcohol or drug abuse patient.[facility] HospitalIn the event this information is protected by the Federal Confidentiality of Alcohol and Drug Abuse Patient Records regulations: The Federal rules restrict any use of the information to criminally investigate or prosecute any alcohol or drug abuse patient.[facility] HospitalIn the event this information is protected by the Federal Confidentiality of Alcohol and Drug Abuse Patient Records regulations: The Federal rules restrict any use of the information to criminally investigate or prosecute any alcohol or drug abuse patient.[facility] HospitalIn the event this information is protected by the Federal Confidentiality of Alcohol and Drug Abuse Patient Records regulations: The Federal rules restrict any use of the information to criminally investigate or prosecute any alcohol or drug abuse patient.[facility] HospitalIn the event this information is protected by the Federal Confidentiality of Alcohol and Drug Abuse Patient Records regulations: The Federal rules restrict any use of the information to criminally investigate or prosecute any alcohol or drug abuse patient.[facility] HospitalIn the event this information is protected by the Federal Confidentiality of Alcohol and Drug Abuse Patient Records regulations: The Federal rules restrict any use of the information to criminally investigate or prosecute any alcohol or drug abuse patient.[facility] HospitalIn the event this information is protected by the Federal Confidentiality of Alcohol and Drug Abuse Patient Records regulations: The Federal rules restrict any use of the information to criminally investigate or prosecute any alcohol or drug abuse patient.[facility] HospitalIn the event this information is protected by the Federal Confidentiality of Alcohol and Drug Abuse Patient Records regulations: The Federal rules restrict any use of the information to criminally investigate or prosecute any alcohol or drug abuse patient.[facility] HospitalIn the event this information is protected by the Federal Confidentiality of Alcohol and Drug Abuse Patient Records regulations: The Federal rules restrict any use of the information to criminally investigate or prosecute any alcohol or drug abuse patient.[facility] HospitalIn the event this information is protected by the Federal Confidentiality of Alcohol and Drug Abuse Patient Records regulations: The Federal rules restrict any use of the information to criminally investigate or prosecute any alcohol or drug abuse patient.[facility] HospitalIn the event this information is protected by the Federal Confidentiality of Alcohol and Drug Abuse Patient Records regulations: The Federal rules restrict any use of the information to criminally investigate or prosecute any alcohol or drug abuse patient.[facility] HospitalIn the event this information is protected by the Federal Confidentiality of Alcohol and Drug Abuse Patient Records regulations: The Federal rules restrict any use of the information to criminally investigate or prosecute any alcohol or drug abuse patient.[facility] HospitalIn the event this information is protected by the Federal Confidentiality of Alcohol and Drug Abuse Patient Records regulations: The Federal rules restrict any use of the information to criminally investigate or prosecute any alcohol or drug abuse patient.[facility] HospitalIn the event this information is protected by the Federal Confidentiality of Alcohol and Drug Abuse Patient Records regulations: The Federal rules restrict any use of the information to criminally investigate or prosecute any alcohol or drug abuse patient.[facility] HospitalIn the event this information is protected by the Federal Confidentiality of Alcohol and Drug Abuse Patient Records regulations: The Federal rules restrict any use of the information to criminally investigate or prosecute any alcohol or drug abuse patient.[facility] HospitalIn the event this information is protected by the Federal Confidentiality of Alcohol and Drug Abuse Patient Records regulations: The Federal rules restrict any use of the information to criminally investigate or prosecute any alcohol or drug abuse patient.[facility] HospitalIn the event this information is protected by the Federal Confidentiality of Alcohol and Drug Abuse Patient Records regulations: The Federal rules restrict any use of the information to criminally investigate or prosecute any alcohol or drug abuse patient.[facility] HospitalIn the event this information is protected by the Federal Confidentiality of Alcohol and Drug Abuse Patient Records regulations: The Federal rules restrict any use of the information to criminally investigate or prosecute any alcohol or drug abuse patient.[facility] HospitalIn the event this information is protected by the Federal Confidentiality of Alcohol and Drug Abuse Patient Records regulations: The Federal rules restrict any use of the information to criminally investigate or prosecute any alcohol or drug abuse patient.[facility] HospitalIn the event this information is protected by the Federal Confidentiality of Alcohol and Drug Abuse Patient Records regulations: The Federal rules restrict any use of the information to criminally investigate or prosecute any alcohol or drug abuse patient.[facility] HospitalIn the event this information is protected by the Federal Confidentiality of Alcohol and Drug Abuse Patient Records regulations: The Federal rules restrict any use of the information to criminally investigate or prosecute any alcohol or drug abuse patient.[facility] HospitalIn the event this information is protected by the Federal Confidentiality of Alcohol and Drug Abuse Patient Records regulations: The Federal rules restrict any use of the information to criminally investigate or prosecute any alcohol or drug abuse [facility] Reason for Visit (unrecogniz ed section and content) Reason Comments Established Patient Specialty Diagnoses / Procedures Referred By Contart t Referred To Contact Oncology Diagnoses 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) Procedures CONSULT TO ONCOLOGY OFFICE/OUTPATIENT NEW HIGH MDM 60-74 MINUTES Neil Barriga MD [email or web address] [place] [address] Referral ID Status Reason Start Date Expiration Date V isits Requested Visits Authorized [id number] Closed PCP Requested Referral 06/27/2023 06/26/2024 1 1 Reason Comments Follow Up Here with care provi arnel f/u behavior, denied current sxs Reason Comments Results Reason Comments Discontinuation Order Request Reason Comments Pain, Back Pt presented with ca regiver Hx kidney failure, excessive thirst x1 day Reason Comments Follow Up 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 Introduction Reason Comments AVS 07/03 CHEMO START Reason Comments Benefits Investigation Reason Comments New Patient Reason Comments First Time Treatment Education Carboplat in/Etopside/Neulasta Reason Comments 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 Antiemetic Reason Comments Symptom Management Reason Comments Chemotherapy Treatment Specialty Diagnoses / Procedures Referred By Contac t Referred To Contact Diagnoses 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) Alexus Palacios MD [address] [place] [address] [facility] [address] [place] [address] [address] [place] [address] Referral ID Status Reason Start Date Expiration Date V isits Requested Visits Authorized [id number] Authorized 07/01/2023 09/29/2023 99 99 Reason Comments 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 C1D1 Post Treat ment Call (Carboplatin/Etoposide) Reason Comments 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 Toxicity Check Reason Comments Blood Draw (CVAD) Reason Comments Follow Up Reason Comments Symptoms Reason Comments Transfusion Reason Comments Results Low potassium Reason Comments Patient Question Reason Comments Radiology CT Specialty Diagnoses / Procedures Referred By Contac t Referred To Contact CT IMAGING Diagnoses 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) Screening for HIV (human immunodeficiency virus) Procedures CT ABD/PEL WO IVCON CT ABD & PELVIS W/O CONTRAST Hardik Wilkerson, DO [address] [place] [address] Ct Imaging [facility] Referral ID Status Reason Start Date Expiration Date V isits Requested Visits Authorized [id number] Closed Auto-Generate d Referral 07/03/2023 08/01/2024 1 1 Specialty Diagnoses / Procedures Referred By Contac t Referred To Contact CT IMAGING Diagnoses 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) Procedures CT ABD/PEL WO IVCON CT ABD & PELVIS W/O CONTRAST Hardik Wilkerson, DO [address] [place] [address] Ct Imaging [facility] Referral ID Status Reason Start Date Expiration Date V isits Requested Visits Authorized [id number] Closed Auto-Generate d Referral 09/16/2023 10/15/2024 1 1 Specialty Diagnoses / Procedures Referred By Contac t Referred To Contact CT IMAGING Diagnoses 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) Procedures CT ABD/PEL WO IVCON CT ABD & PELVIS W/O CONTRAST Hardik Wilkerson A, DO [address] [place] [address] [place] [id number] Referral ID Status Reason Start Date Expiration Date V isits Requested Visits Authorized [id number] Closed Auto-Generate d Referral 08/01/2023 08/30/2024 [address] Reason Comments transfusion Reason Comments urgent results Reason Comments Port Flush Reason Comments AVS 09/30/23 Reason Comments Refill Request Reason Comments Nm Pet Request Reason Comments Consult Testicular Cancer Specialty Diagnoses / Procedures [facility]erred To Contact Urology / UROL MAIN Diagnoses 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) Procedures CONSULT TO UROLOGY OFFICE/OUTPATIENT NEW HIGH MDM 60-74 MINUTES Hardik Wilkerson, DO [address] [place] [address] [facility] [address] [place] [address] Referral ID Status Reason Start Date Expiration Date V isits Requested Visits Authorized [id number] Closed PCP Requested Referral 09/22/2023 09/21/2024 1 1 Reason Comments Established Patient Reason Comments Biopsy Request Reason Comments Appointment Reason Comments Edema Reason Onset Date Comments No Show 03/10/2024 No show Reason Comments Pre-Op Exam Reason Comments Post-Op Visit Reason Comments Established Patient Reason Comments Patient Update Reason Comments Radiology CT Specialty Diagnoses / Procedures [facility] Referred To Contact CT IMAGING Diagnoses 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) Stage 3b chronic kidney disease (HCC) Seminoma of descended right testis (HCC) Procedures CT ABD/PEL WO IVCON CT ABD & PELVIS W/O CONTRAST Hardik Wilkerson, DO [address] [place] [address] [place] [address] Referral ID Status Reason Start Date Expiration Date V isits Requested Visits Authorized [id number] Closed Auto-Generate d Referral 04/28/2024 05/28/2025 1 1 Specialty Diagnoses / Procedures [facility] Referred To Contact CT IMAGING Diagnoses 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 Saw D r Weight 07/06/24 Reason Comments Consult Port removal Reason Comments Follow Up Testicular Cancer Care Teams (unrecognized sec tion and content) Scrap Drop Engineer Relationship Specialty Start Date End Date Floyd Guardado [address] [facility] [address] [place] [address] PCP - General Family Practice 02/14/22 Scrap Drop Engineer Relationship Specialty Start Date End Date Floyd Guardado [address] [facility] [address] [place] [address] PCP - General Family Practice 02/14/22 Scrap Drop Engineer Relationship Specialty Start Date End Date Floyd Guardado [address] [facility] [address] [place] [address] PCP - General Family Practice 02/14/22 Scrap Drop Engineer Relationship Specialty Start Date End Date Floyd Guardado [address] [facility] [address] [place] [address] PCP - General Family Practice 02/14/22 Team Status: Active Member Role Status Dates Dr. Floyd Grove MD Family Provider Active Dr. Floyd Guardado MD Primary Care Provider Active Team Status: Inactive Member Role Status Dates Dr. Floyd Guardado MD Primary Care Provider Active ROBERT Dorsey Attending Provider, Referr ing Provider Active Team Status: Inactive Member Role Status Dates Dr. Floyd Guardado MD Primary Care Provider Active Dr. Adelina Valderrama MD Attending Provider Active Team Status: Inactive Member Role Status Dates Dr. Floyd Guardado MD Primary Care Pr ovider, Attending Provider, Referring Provider Active Team Status: Active Member Role Status Dates Dr. Floyd Guardado MD Primary Care Provider, Attend ing Provider Active Team Status: Inactive Member Role Status Dates Dr. Floyd Guardado MD Primary Care Provider, Attend ing Provider Active Team Status: Inactive Member Role Status Dates Dr. Floyd Guardado MD Primary Care Provider Active Dr. Adelina Valderrama MD Attending Provider, Referri ng Provider Active Scrap Drop Engineer Relationship Specialty Start Date End Date Floyd Guardado [address] [place] [address] PCP - General Family Medicine 02/14/22 Team Status: Inactive Member Role Status Dates Dr. Floyd Guardado MD Primary Care Provider Active Dr. Mahad Lim DO Emergency Provider Active Team Status: Active Member Role Status Dates Dr. Floyd Guardado MD Primary Care Provider Active KIMANI SALAZAR Attending Provider, Referring Provider Ac tive Team Status: Inactive Member Role Status Dates Dr. Floyd Guardado MD Primary Care Provider, Referr ing Provider Active Dr. Rosa Vera MD Attending Provider Active Team Status: Inactive Member Role Status Dates Dr. Floyd Guardado MD Primary Care Provider Active Dr. Mahad Lim DO Attending Provider, Emergency Provide r Active Team Status: Active Member Role Status Dates Dr. Floyd Guardado MD Primary Care Provider Active Dr. Rosa Vera MD Attending Provider, Referrin g Provider Active Team Status: Inactive Member Role Status Dates Dr. Floyd Guardado MD Primary Care Provider Active KIMANI SALAZAR Attending Provider, Referring Provider Ac tive Team Status: Inactive Member Role Status Dates Dr. Floyd Guardado MD Primary Care Provider Active Dr. Rosa Vera MD Attending Provider, Referrin g Provider Active Team Status: Inactive Member Role Status Dates Dr. Floyd Guardado MD Primary Care Provider, Referr ing Provider Active Dr. Jesse Montes DO Attending Provider Active Team Status: Inactive Member Role Status Dates Dr. Floyd Guardado MD Primary Care Provider Active Dr. Gucci Major MD Attending Provider, Emergency Provider Active Team Status: Inactive Member Role Status Dates Dr. Floyd Guardado MD Primary Care Provider Active Dr. Candace Banuelos MD Emergency Provider Active Team Status: Inactive Member Role Status Dates Dr. Floyd Guardado MD Primary Care Provider Active Dr. Simeon Cobos DO Emergency Provider Active Scrap Drop Engineer Relationship Specialty Start Date End Date Floyd Guardado [address] [facility] [address] [place] [address] PCP - General Family Medicine 02/14/22 Jesse Montes DO [address] [facility] [address] [place] [address] Radiation Oncology 06/23/23 Rosa Vera [address] [place] [address] Hematology/Oncology 06/23/23 Scrap Drop Engineer Relationship Specialty Start Date End Date Floyd Guardado MD [address] [facility] [address] [place] [address] PCP - General Family Medicine 02/14/22 Jesse Montes DO [address] [facility] [address] [place] [address] Radiation Oncology 06/23/23 Rosa Vera [address] [place] [address] Hematology/Oncology 06/23/23 Scrap Drop Engineer Relationship Specialty Start Date End Date Floyd Guardado MD [address] [facility] [address] [place] [address] PCP - General Family Medicine 02/14/22 Jesse Montes DO [address] [facility] [place] [address] Radiation Oncology 06/23/23 Rosa Vera [address] [place] [address] Hematology/Oncology 06/23/23 Scrap Drop Engineer Relationship Specialty Start Date End Date Floyd Guardado MD [address] [place], [place] [address] PCP - General Family Medicine 02/14/22 Jesse Montes DO [address] [facility] [address] [place] [address] Radiation Oncology 06/23/23 ToniRosa [address] [place] [address] Hematology/Oncology 06/23/23 Scrap Drop Engineer Relationship Specialty Start Date End Date Floyd Guardado MD [address] [place] [address] PCP - General Family Medicine 02/14/22 Jesse Montes DO [address] [facility] [address] [place] [address] Radiation Oncology 06/23/23 Rosa Vera [address] [place] [address] Hematology/Oncology 06/23/23 Scrap Drop Engineer Relationship Specialty Start Date End Date Floyd Guardado MD [address] [place] [address] PCP - General Family Medicine 02/14/22 Jesse Montes DO [address] [facility] [address] [place] [address] Radiation Oncology 06/23/23 Rosa Vera [address] [place] [address] Hematology/Oncology 06/23/23 Scrap Drop Engineer Relationship Specialty Start Date End Date Floyd Guardado MD [address] [place] [address] PCP - General Family Medicine 02/14/22 Jesse Montes DO [address] [facility] [address] [place] [address] Radiation Oncology 06/23/23 Rosa Vera [address] [place] [address] Hematology/Oncology 06/23/23 Scrap Drop Engineer Relationship Specialty Start Date End Date Floyd Guardado MD [address] [place] [address] PCP - General Family Medicine 02/14/22 Jesse Montes DO [address] [facility] [address] [place] [address] Radiation Oncology 06/23/23 Rosa Vera [address] [place] [address] Hematology/Oncology 06/23/23 Scrap Drop Engineer Relationship Specialty Start Date End Date Floyd Guardado MD [address] [facility] [address] [place] [address] PCP - General Family Medicine 02/14/22 Jesse Montes DO [address] [facility] [address] [place] [address] Radiation Oncology 06/23/23 Rosa Vera [address] [place] [address] Hematology/Oncology 06/23/23 Scrap Drop Engineer Relationship Specialty Start Date End Date Floyd Guardado MD [address] [facility] [address] [place] [address] PCP - General Family Medicine 02/14/22 Jesse Montes DO [address] [facility] 1 [place] [address] Radiation Oncology 06/23/23 Rosa Vera [address] [place] [address] Hematology/Oncology 06/23/23 Scrap Drop Engineer Relationship Specialty Start Date End Date Floyd Guardado MD [address] [facility] [address] [place] [address] PCP - General Family Medicine 02/14/22 Jesse Montes DO [address] [facility] [address] [place] [address] Radiation Oncology 06/23/23 Rosa Vera [address] [place] [address] Hematology/Oncology 06/23/23 Janay Shields RN Specialty Senior Business Architect Oncology 07/10/23 Hardik Wilkerson DO [address] [place] [address] Physician Hematology/Oncology 07/10/23 Scrap Drop Engineer Relationship Specialty Start Date End Date Floyd Guardado MD [address] [facility] [address] [place] [address] PCP - General Family Medicine 02/14/22 Jesse Montes DO [address] [facility] [address] [place] [address] Radiation Oncology 06/23/23 Rosa Vera [address] [place] [address] Hematology/Oncology 06/23/23 Janay Shields RN Specialty Senior Business Architect Oncology 07/10/23 Hardik Wilkerson DO [address] [address] Physician Hematology/Oncology 07/10/23 Scrap Drop Engineer Relationship Specialty Start Date End Date Floyd Guardado MD [address] [facility] [address] [place] [address] PCP - General Family Medicine 02/14/22 Jesse Montes DO [address] [facility] [place] [address] Radiation Oncology 06/23/23 Rosa Vera [address] [place] [address] Hematology/Oncology 06/23/23 Janay Shields RN Specialty Senior Business Architect Oncology 07/10/23 Hardik Wilkerson DO [address] [place] [address] Physician Hematology/Oncology 07/10/23 Scrap Drop Engineer Relationship Specialty Start Date End Date Floyd Guardado MD [address] [place] [address] PCP - General Family Medicine 02/14/22 Jesse Montes DO [address] [facility] [address] [address] [place] [address] Radiation Oncology 06/23/23 Rosa Vera [address] [place] [address] Hematology/Oncology 06/23/23 Janay Shields RN Specialty Senior Business Architect Oncology 07/10/23 Hardik Wilkerson DO [address] [place] [address] Physician Hematology/Oncology 07/10/23 Scrap Drop Engineer Relationship Specialty Start Date End Date Floyd Guardado MD [address] [place] [address] PCP - General Family Medicine 02/14/22 Jesse Montes DO [address] [facility] [address] [place] [address] Radiation Oncology 06/23/23 [facility] [address] [place] [address] Hematology/Oncology 06/23/23 Janay Shields RN Specialty Senior Business Architect Oncology 07/10/23 Hardik Wilkerson DO [address] [place] [address] Physician Hematology/Oncology 07/10/23 Scrap Drop Engineer Relationship Specialty Start Date End Date Floyd Guardado MD [address] [place] [address] PCP - General Family Medicine 02/14/22 Jesse Montes DO [address] [facility] [address] [place] [address] Radiation Oncology 06/23/23 Rosa Vera [address] [place] [address] Hematology/Oncology 06/23/23 Janay Shields RN Specialty Senior Business Architect Oncology 07/10/23 Hardik Wilkerson DO [address] [place] [address] Physician Hematology/Oncology 07/10/23 Scrap Drop Engineer Relationship Specialty Start Date End Date Floyd Guardado MD [address] [place] [address] PCP - General Family Medicine 02/14/22 Jesse Montes DO [address] [facility] [address] [place] [address] Radiation Oncology 06/23/23 CocoRosa lyons [address] [place] [address] Hematology/Oncology 06/23/23 Janay Shields RN Specialty Senior Business Architect Oncology 07/10/23 Hardik Wilkerson DO [address] [place] [address] Physician Hematology/Oncology 07/10/23 Scrap Drop Engineer Relationship Specialty Start Date End Date Floyd Guardado MD [address] [place] [address] PCP - General Family Medicine 02/14/22 Jesse Montes DO [address] [facility] [address] [address] [place] [address] Radiation Oncology 06/23/23 CocoRosa lyons [address] [place] [address] Hematology/Oncology 06/23/23 Janay Shields RN Specialty Senior Business Architect Oncology 07/10/23 Hardik Wilkerson DO [address] [place] [address] Physician Hematology/Oncology 07/10/23 Scrap Drop Engineer Relationship Specialty Start Date End Date Floyd Guardado MD [address] [place] [address] PCP - General Family Medicine 02/14/22 Jesse Montes DO [address] [facility] [address] [place] [address] Radiation Oncology 06/23/23 Rosa Vera [address] [place] [address] Hematology/Oncology 06/23/23 Janay Shields RN Specialty Senior Business Architect Oncology 07/10/23 Hardik Wilkerson DO [address] [place] [address] Physician Hematology/Oncology 07/10/23 Team Status: Inactive Member Role Status Dates Dr. Floyd Guardado MD Primary Care Provider Active Dr. Candace Banuelos MD Attending Provider, Emergency Provider Active Team Status: Inactive Member Role Status Dates Dr. Floyd Guardado MD Primary Care Provider Active Dr. Simeon Cobos DO Attending Provider, Emergency P russell Active Scrap Drop Engineer Relationship Specialty Start Date End Date Floyd Guardado MD [address] [facility] [address] [place] [address] PCP - General Family Medicine 02/14/22 Jesse Montes DO [address] [facility] 1 [place] [address] Radiation Oncology 06/23/23 Rosa Vera [address] [place] [address] Hematology/Oncology 06/23/23 Janay Shields RN Specialty Senior Business Architect Oncology 07/10/23 Hardik Wilkerson DO [address] [place] [address] Physician Hematology/Oncology 07/10/23 Scrap Drop Engineer Relationship Specialty Start Date End Date Floyd Guardado MD [address] [facility] [address] [place], [place] [address] PCP - General Family Medicine 02/14/22 Jesse Montes DO [address] [facility] [address] [address] [place] [address] Radiation Oncology 06/23/23 [facility] [address] [place] [address] Hematology/Oncology 06/23/23 Janay Shields RN Specialty Senior Business Architect Oncology 07/10/23 Hardik Wilkerson DO [address] [address] Physician Hematology/Oncology 07/10/23 Scrap Drop Engineer Relationship Specialty Start Date End Date Floyd Guardado MD [address] [facility] [address] [place] [address] PCP - General Family Medicine 02/14/22 Jesse Montes DO [address] [facility] [address] [address] [place] [address] Radiation Oncology 06/23/23 Rosa Vera [address] [place] [address] Hematology/Oncology 06/23/23 Janay Shields RN Specialty Senior Business Architect Oncology 07/10/23 Hardik Wilkerson DO [address] [place] [address] Physician Hematology/Oncology 07/10/23 Scrap Drop Engineer Relationship Specialty Start Date End Date Floyd Guardado MD [address] [facility] [facility] [address] [place] [address] PCP - General Family Medicine 02/14/22 Jesse Montes DO [address] [facility] [address] [place] [address] Radiation Oncology 06/23/23 Rosa Vera [address] [place] [address] Hematology/Oncology 06/23/23 Janay Shields RN Specialty Senior Business Architect Oncology 07/10/23 Hardik Wilkerson DO [address] [place] [address] Physician Hematology/Oncology 07/10/23 Scrap Drop Engineer Relationship Specialty Start Date End Date Floyd Guardado MD [address] [facility] [address] [place] [address] PCP - General Family Medicine 02/14/22 Jesse Montes DO [address] [facility] [address] [place] [address] Radiation Oncology 06/23/23 Rosa Vera [address] [place] [address] Hematology/Oncology 06/23/23 Janay Shields RN Specialty Senior Business Architect Oncology 07/10/23 Hardik Wilkerson DO [address] [place], [place] [address] Physician Hematology/Oncology 07/10/23 Scrap Drop Engineer Relationship Specialty Start Date End Date Floyd Guardado MD [address] [facility] [address] [place] [address] PCP - General Family Medicine 02/14/22 Jesse Montes DO [address] [facility] [address] [place] [address] Radiation Oncology 06/23/23 Rosa Vera [address] [place] [address] Hematology/Oncology 06/23/23 Janay Shields RN Specialty Senior Business Architect Oncology 07/10/23 Hardik Wilkerson DO [address] [place] [address] Physician Hematology/Oncology 07/10/23 Scrap Drop Engineer Relationship Specialty Start Date End Date Floyd Guardado MD [address] [facility] [address] [place] [address] PCP - General Family Medicine 02/14/22 Jesse Montes DO [address] [facility] [address] [place] [address] Radiation Oncology 06/23/23 Rosa Vera [address] [place] [address] Hematology/Oncology 06/23/23 Janay Shields RN Specialty Senior Business Architect Oncology 07/10/23 Hardik Wilkerson DO [address] [place] [address] Physician Hematology/Oncology 07/10/23 Scrap Drop Engineer Relationship Specialty Start Date End Date Floyd Guardado MD [address] [facility] 105 [place] [address] PCP - General Family Medicine 02/14/22 Jesse Montes DO [address] [facility] 1 [place] [address] Radiation Oncology 06/23/23 Rosa Vera [address] [place] [address] Hematology/Oncology 06/23/23 Janay Shields RN Specialty Senior Business Architect Oncology 07/10/23 Hardik Wilkerson DO [address] [place] [address] Physician Hematology/Oncology 07/10/23 Scrap Drop Engineer Relationship Specialty Start Date End Date Floyd Guardado MD [address] [facility] [address] [place] [address] PCP - General Family Medicine 02/14/22 Jesse Montes DO [address] [facility] 1 [place] [address] Radiation Oncology 06/23/23 Rosa Vera [address] [place] [address] Hematology/Oncology 06/23/23 Janay Shields RN Specialty Senior Business Architect Oncology 07/10/23 Hardik Wilkerson DO [address] [place] [address] Physician Hematology/Oncology 07/10/23 Scrap Drop Engineer Relationship Specialty Start Date End Date Floyd Guardado MD [address] [place] [address] PCP - General Family Medicine 02/14/22 Jesse Montes DO [address] [facility] 1 [place] [address] Radiation Oncology 06/23/23 Rosa Vera [address] [place] [address] Hematology/Oncology 06/23/23 Janay Shields RN Specialty Senior Business Architect Oncology 07/10/23 Hardik Wilkerson DO [address] [address] Physician Hematology/Oncology 07/10/23 Scrap Drop Engineer Relationship Specialty Start Date End Date Floyd Guardado MD [address] [facility] 105 [place] [address] PCP - General Family Medicine 02/14/22 Jesse Montes DO [address] [facility] 1 [place] [address] Radiation Oncology 06/23/23 Rosa Vera [address] [place] [address] Hematology/Oncology 06/23/23 Janay Shields RN Specialty Senior Business Architect Oncology 07/10/23 Hardik Wilkerson DO [address] [place] [address] Physician Hematology/Oncology 07/10/23 Scrap Drop Engineer Relationship Specialty Start Date End Date Floyd Guardado MD [address] [facility] 105 [place] [address] PCP - General Family Medicine 02/14/22 Jesse Montes DO [address] [facility] 1 [place] [address] Radiation Oncology 06/23/23 Rosa Vera [address] [place] [address] Hematology/Oncology 06/23/23 Janay Shields RN Specialty Senior Business Architect Oncology 07/10/23 Hardik Wilkerson DO [address] [place] [address] Physician Hematology/Oncology 07/10/23 Scrap Drop Engineer Relationship Specialty Start Date End Date Floyd Guardado MD [address] [facility] [address] [place] [address] PCP - General Family Medicine 02/14/22 Jesse Montes DO [address] [facility] 1 [place] [address] Radiation Oncology 06/23/23 Rosa Vera [address] [place] [address] Hematology/Oncology 06/23/23 Janay Shields RN Specialty Senior Business Architect Oncology 07/10/23 Hardik Wilkerson DO [address] [place] [address] Physician Hematology/Oncology 07/10/23 Scrap Drop Engineer Relationship Specialty Start Date End Date Floyd Guardado MD [address] [place] [address] PCP - General Family Medicine 02/14/22 Jesse Montes DO [address] [facility] 1 [place] [address] Radiation Oncology 06/23/23 Rosa Vera [address] [place] [address] Hematology/Oncology 06/23/23 Scrap Drop Engineer Relationship Specialty Start Date End Date Floyd Guardado MD [address] [place] [address] PCP - General Family Medicine 02/14/22 Jesse Montes DO [address] [facility] 1 [place] [address] Radiation Oncology 06/23/23 Rosa Vera [address] [place] [address] Hematology/Oncology 06/23/23 Janay Shields RN Specialty Senior Business Architect Oncology 07/10/23 Hardik Wilkerson DO [address] [place] [address] Physician Hematology/Oncology 07/10/23 Scrap Drop Engineer Relationship Specialty Start Date End Date Floyd Guardado MD [address] [facility] 105 [place] [address] PCP - General Family Medicine 02/14/22 Jesse Montes DO [address] [facility] 1 [place] [address] Radiation Oncology 06/23/23 Rosa Vera [address] [place] [address] Hematology/Oncology 06/23/23 Scrap Drop Engineer Relationship Specialty Start Date End Date Floyd Guardado MD [address] [facility] 105 [place] [address] PCP - General Family Medicine 02/14/22 Jesse Montes DO [address] [facility] 1 [place] [address] Radiation Oncology 06/23/23 Rosa Vera [address] [place] [address] Hematology/Oncology 06/23/23 Janay Shields, WHITNEY Specialty Senior Business Architect Oncology 07/10/23 Hardik Wilkerson DO [address] [place] [address] Physician Hematology/Oncology 07/10/23 Scrap Drop Engineer Relationship Specialty Start Date End Date Floyd Guardado MD [address] [place] [address] [place] [address] PCP - General Family Medicine 02/14/22 Jesse Montes DO [address] [facility] 1 [place] [address] Radiation Oncology 06/23/23 Rosa Vera [address] [place] [address] Hematology/Oncology 06/23/23 Janay Shields RN Specialty Senior Business Architect Oncology 07/10/23 Hardik Wilkerson DO [address] [place] [address] Physician Hematology/Oncology 07/10/23 Scrap Drop Engineer Relationship Specialty Start Date End Date Floyd Guardado MD [address] [facility] 105 [place] [address] PCP - General Family Medicine 02/14/22 Jesse Montes DO [address] [facility] 1 [place] [address] Radiation Oncology 06/23/23 Rosa Vera [address] [place] [address] Hematology/Oncology 06/23/23 Janay Shields RN Specialty Senior Business Architect Oncology 07/10/23 Hardik Wilkerson DO [address] [place] [address] Physician Hematology/Oncology 07/10/23 Scrap Drop Engineer Relationship Specialty Start Date End Date Floyd Guardado MD [address] [facility] 105 [place] [address] PCP - General Family Medicine 02/14/22 Jesse Montes DO [address] [facility] 1 [place] [address] Radiation Oncology 06/23/[address] [place] [address] Hematology/Oncology 06/23/23 Janay Shields RN Specialty Senior Business Architect Oncology 07/10/23 Hardik Wilkerson DO [address] [place] [address] Physician Hematology/Oncology 07/10/23 Scrap Drop Engineer Relationship Specialty Start Date End Date Floyd Guardado MD [address] [facility] 105 [place] [address] PCP - General Family Medicine 02/14/22 Jesse Montse DO [address] [facility] 1 [place] [address] Radiation Oncology 06/23/23 Rosa Vera [address] [place] [address] Hematology/Oncology 06/23/23 Janay Shields RN Specialty Senior Business Architect Oncology 07/10/23 Hardik Wilkerson DO [address] [place] [address] Physician Hematology/Oncology 07/10/23 Team Status: Inactive Member Role Status Dates Dr. Floyd Guardado MD Primary Care Provider Active Dr. Hardik Wilkerson DO Attending Provider, Referring Prov ider Active Scrap Drop Engineer Relationship Specialty Start Date End Date Floyd Guardado MD [address] [facility] [address] [place] [address] PCP - General Family Medicine 02/14/22 Jesse Montes DO [address] [facility] 1 [place] [address] Radiation Oncology 06/23/23 Rosa Vera [address] [place] [address] Hematology/Oncology 06/23/23 Janay Shields RN Specialty Senior Business Architect Oncology 07/10/23 Hardik Wilkerson DO [address] [facility] [place] [address] Physician Hematology/Oncology 07/10/23 Scrap Drop Engineer Relationship Specialty Start Date End Date Floyd Guardado MD [address] [facility] 105 [place] [address] PCP - General Family Medicine 02/14/22 Jesse Montes DO [address] [facility] 1 [place] [address] Radiation Oncology 06/23/23 Rosa Vera [address] [place] [address] Hematology/Oncology 06/23/23 Janay Shields RN Specialty Senior Business Architect Oncology 07/10/23 Hardik Wilkerson DO [address] [place] [address] Physician Hematology/Oncology 07/10/23 Scrap Drop Engineer Relationship Specialty Start Date End Date Floyd Guardado MD [address] [place] [place] [address] PCP - General Family Medicine 02/14/22 Jesse Montes DO [address] [facility] 1 [place] [address] Radiation Oncology 06/23/23 Rosa Vera [address] [place] [address] Hematology/Oncology 06/23/23 Janay Shields RN Specialty Senior Business Architect Oncology 07/10/23 Hardik Wilkerson DO [address] [place] [address] Physician Hematology/Oncology 07/10/23 Scrap Drop Engineer Relationship Specialty Start Date End Date Floyd Guardado MD [address] [facility] 105 [place] [address] PCP - General Family Medicine 02/14/22 Jesse Montes DO [address] [facility] 1 [place] [address] Radiation Oncology 06/23/23 Rosa Vera [address] [place] [address] Hematology/Oncology 06/23/23 Janay Shields RN Specialty Senior Business Architect Oncology 07/10/23 Hardik Wilkerson DO [address] [place] [address] Physician Hematology/Oncology 07/10/23 Scrap Drop Engineer Relationship Specialty Start Date End Date Floyd Guardado MD [address] [facility] [address] [place] [address] PCP - General Family Medicine 02/14/22 Jesse Montes DO [address] [facility] 1 [place] [address] Radiation Oncology 06/23/23 Rosa Vera [address] [place] [address] Hematology/Oncology 06/23/23 Janay Shields RN Specialty Senior Business Architect Oncology 07/10/23 Hardik Wilkerson DO [address] [place] [address] Physician Hematology/Oncology 07/10/23 Scrap Drop Engineer Relationship Specialty Start Date End Date Floyd Guardado MD [address] [facility] 105 [place] [address] PCP - General Family Medicine 02/14/22 Jesse Montes DO [address] [facility] 1 [place] [address] Radiation Oncology 06/23/23 Rosa Vera [address] [place] [address] Hematology/Oncology 06/23/23 Janay Shields RN Specialty Senior Business Architect Oncology 07/10/23 Hardik Wilkerson DO [address] [place] [address] Physician Hematology/Oncology 07/10/23 Scrap Drop Engineer Relationship Specialty Start Date End Date Floyd Guardado MD [address] [facility] 105 [place] [address] PCP - General Family Medicine 02/14/22 Jesse Montes DO [address] [facility] 1 [place] [address] Radiation Oncology 06/23/23 Rosa Vera [address] [place] [address] Hematology/Oncology 06/23/23 Janay Shields RN Specialty Senior Business Architect Oncology 07/10/23 Hardik Wilkerson DO [address] [place] [address] Physician Hematology/Oncology 07/10/23 Scrap Drop Engineer Relationship Specialty Start Date End Date Floyd Guardado MD [address] [facility] 105 [place] [address] PCP - General Family Medicine 02/14/22 Jesse Montes DO [address] [facility] 1 [place] [address] Radiation Oncology 06/23/23 Rosa Vera [address] [place] [address] Hematology/Oncology 06/23/23 Janay Shields RN Specialty Senior Business Architect Oncology 07/10/23 Hardik Wilkerson DO [address] [place] [address] Physician Hematology/Oncology 07/10/23 Scrap Drop Engineer Relationship Specialty Start Date End Date Floyd Guardado MD [address] [place] [address] [place] [address] PCP - General Family Medicine 02/14/22 Jesse Montes DO [address] [facility] 1 [place] [address] Radiation Oncology 06/23/23 Rosa Vera [address] [place] [address] Hematology/Oncology 06/23/23 Janay Shields RN Specialty Senior Business Architect Oncology 07/10/23 Hardik Wilkerson DO [address] [place] [address] Physician Hematology/Oncology 07/10/23 Scrap Drop Engineer Relationship Specialty Start Date End Date Floyd Guardado MD [address] [place] [address] [place] [address] PCP - General Family Medicine 02/14/22 Jesse Montes DO [address] [facility] 1 [place] [address] Radiation Oncology 06/23/23 Rosa Vera [address] [place] [address] Hematology/Oncology 06/23/23 Janay Shields RN Specialty Senior Business Architect Oncology 07/10/23 Hardik Wilkerson DO [address] [place] [address] Physician Hematology/Oncology 07/10/23 Scrap Drop Engineer Relationship Specialty Start Date End Date Floyd Guardado MD [address] [facility] [address] [place] [address] PCP - General Family Medicine 02/14/22 Jesse Montes DO [address] [facility] 1 [place] [address] Radiation Oncology 06/23/23 [facility] [address] [place] [address] Hematology/Oncology 06/23/23 Janay Shields RN Specialty Senior Business Architect Oncology 07/10/23 Hardik Wilkerson DO [address] [place] [address] Physician Hematology/Oncology 07/10/23 Scrap Drop Engineer Relationship Specialty Start Date End Date Floyd Guardado MD [address] [place] [place], [place] [address] PCP - General Family Medicine 02/14/22 Jesse Montes DO [address] [facility] 1 [place] [address] Radiation Oncology 06/23/23 Rosa Vera [address] [place] [address] Hematology/Oncology 06/23/23 Janay Shields RN Specialty Senior Business Architect Oncology 07/10/23 Hardik Wilkerson DO [address] [place] [address] Physician Hematology/Oncology 07/10/23 Scrap Drop Engineer Relationship Specialty Start Date End Date Floyd Guardado MD [address] [place] [address] PCP - General Family Medicine 02/14/22 Jesse Montes DO [address] [facility] 1 [place] [address] Radiation Oncology 06/23/23 Rosa Vera [address] [place] [address] Hematology/Oncology 06/23/23 Janay Shields RN Specialty Senior Business Architect Oncology 07/10/23 Hardik Wilkerson DO [address] [place] [address] Physician Hematology/Oncology 07/10/23 Team Status: Inactive Member Role Status Dates Dr. Floyd Guardado MD Primary Care Provider Active Dr. Augusto Barrera MD Emergency Provider Active Scrap Drop Engineer Relationship Specialty Start Date End Date Floyd Guardado MD [address] [place] [address] PCP - General Family Medicine 02/14/22 Jesse Montes DO [address] [facility] 1 [place] [address] Radiation Oncology 06/23/23 CocoRosa lyons [address] [place] [address] Hematology/Oncology 06/23/23 Janay Shields RN Specialty Senior Business Architect Oncology 07/10/23 Hardik Wilkerson DO [address] [place] [address] Physician Hematology/Oncology 07/10/23 Alexus Palacios MD [address] [place], [place] [address] Physician Hematology 02/11/24 Izabela Yin RN Specialty Senior Business Architect Hematology/Oncology 02/11/24 Scrap Drop Engineer Relationship Specialty Start Date End Date Floyd Guardado MD [address] [facility] 105 [place], [place] [address] PCP - General Family Medicine 02/14/22 Jesse Montes DO [address] [facility] 1 [place] [address] Radiation Oncology 06/23/23 ToniRosa walsh [address] [place] [address] Hematology/Oncology 06/23/23 Janay Shields RN Specialty Senior Business Architect Oncology 07/10/23 Hardik Wilkerson DO [address] [place] [address] Physician Hematology/Oncology 07/10/23 Alexus Palacios MD [address] [place] [address] Physician Hematology 02/11/24 Izabela Yin, RN Specialty Senior Business Architect Hematology/Oncology 02/11/24 Scrap Drop Engineer Relationship Specialty Start Date End Date Floyd Guardado MD [address] [facility] [address] [place] [address] PCP - General Family Medicine 02/14/22 Jesse Montes DO [address] [facility] [address] 1 [place] [address] Radiation Oncology 06/23/23 Rosa Vera [address] [place] [place] [address] Hematology/Oncology 06/23/23 Janay Shields RN Specialty Senior Business Architect Oncology 07/10/23 Hardik Wilkerson DO [address] [facility] [place] [address] Physician Hematology/Oncology 07/10/23 Alexus Palacios MD [address] [place] [address] Physician Hematology 02/11/24 Izabela Yin, RN Specialty Senior Business Architect Hematology/Oncology 02/11/24 Scrap Drop Engineer Relationship Specialty Start Date End Date Floyd Guardado MD [address] [facility] [address] [place] [address] PCP - General Family Medicine 02/14/22 Jesse Montes DO [address] [facility] 1 [place] [address] Radiation Oncology 06/23/23 CocoRosa lyons [address] [place] [address] Hematology/Oncology 06/23/23 Janay Shields RN Specialty Senior Business Architect Oncology 07/10/23 Hardik Wilkerson DO [address] [place], [place] [address] Physician Hematology/Oncology 07/10/23 Alexus Palacios MD [address] [place], [place] [address] Physician Hematology 02/11/24 Izabela Yin RN Specialty Senior Business Architect Hematology/Oncology 02/11/24 Scrap Drop Engineer Relationship Specialty Start Date End Date Floyd Guardado MD [address] [facility] 105 [place], [place] [address] PCP - General Family Medicine 02/14/22 Jesse Montes DO [address] [facility] 1 [place] [address] Radiation Oncology 06/23/23 ToniRosa walsh [address] [place] [address] Hematology/Oncology 06/23/23 Janay Shields RN Specialty Senior Business Architect Oncology 07/10/23 Hardik Wilkerson DO [address] [place] [address] Physician Hematology/Oncology 07/10/23 Alexus Palacios MD [address] [place] [address] Physician Hematology 02/11/24 Izabela Yin, RN Specialty Senior Business Architect Hematology/Oncology 02/11/24 Scrap Drop Engineer Relationship Specialty Start Date End Date Floyd Guardado MD [address] [facility] [address] [place] [address] PCP - General Family Medicine 02/14/22 Jesse Montes DO [address] [facility] [address] 1 [place] [address] Radiation Oncology 06/23/23 Rosa Vera [address] [place] [place] [address] Hematology/Oncology 06/23/23 Janay Shields RN Specialty Senior Business Architect Oncology 07/10/23 Hardik Wilkerson DO [address] [facility] [place] [address] Physician Hematology/Oncology 07/10/23 Alexus Palacios MD [address] [place] [address] Physician Hematology 02/11/24 Izabela Yin, RN Specialty Senior Business Architect Hematology/Oncology 02/11/24 Scrap Drop Engineer Relationship Specialty Start Date End Date Floyd Guardado MD [address] [facility] [address] [place] [address] PCP - General Family Medicine 02/14/22 Jesse Montes DO [address] [facility] 1 [place] [address] Radiation Oncology 06/23/23 ToniRosa walsh [address] [place] [address] Hematology/Oncology 06/23/23 Janay Shields RN Specialty Senior Business Architect Oncology 07/10/23 Hardik Wilkerson DO [address] [place] [address] Physician Hematology/Oncology 07/10/23 Alexus Palacios MD [address] [place], [place] [address] Physician Hematology 02/11/24 Izabela Yin RN Specialty Senior Business Architect Hematology/Oncology 02/11/24 Scrap Drop Engineer Relationship Specialty Start Date End Date Floyd Guardado MD [address] [facility] 105 [place], [place] [address] PCP - General Family Medicine 02/14/22 Jesse Montes DO [address] [facility] [address] 1 [place] [address] Radiation Oncology 06/23/23 ToniRosa walsh [address] [place] [address] Hematology/Oncology 06/23/23 Janay Shields RN Specialty Senior Business Architect Oncology 07/10/23 Hardik Wilkerson DO [address] [place] [address] Physician Hematology/Oncology 07/10/23 Alexus Palacios MD [address] [place] [address] Physician Hematology 02/11/24 Izabela Yin, RN Specialty Senior Business Architect Hematology/Oncology 02/11/24 Scrap Drop Engineer Relationship Specialty Start Date End Date Floyd Guardado MD [address] [facility] [address] [place] [address] PCP - General Family Medicine 02/14/22 Jesse Montes DO [address] [facility] [address] [place] [address] Radiation Oncology 06/23/23 Rosa Vera [address] [place] [address] Hematology/Oncology 06/23/23 Janay Shields RN Specialty Senior Business Architect Oncology 07/10/23 Hardik Wilkerson DO [address] [place] [address] Physician Hematology/Oncology 07/10/23 Alexus Palacios MD [address] [place] [address] Physician Hematology 02/11/24 Izabela Yin, RN Specialty Senior Business Architect Hematology/Oncology 02/11/24 Scrap Drop Engineer Relationship Specialty Start Date End Date Floyd Guardado MD [address] [place] [address] PCP - General Family Medicine 02/14/22 Jesse Montes DO [address] [facility] 1 [place] [address] Radiation Oncology 06/23/23 Rosa Vera [address] [place] [address] Hematology/Oncology 06/23/23 Janay Shields RN Specialty Senior Business Architect Oncology 07/10/23 Hardik Wilkerson DO [address] [place] [address] Physician Hematology/Oncology 07/10/23 Alexus Palacios MD [address] [place] [address] Physician Hematology 02/11/24 Izabela Yin RN Specialty Senior Business Architect Hematology/Oncology 02/11/24 Scrap Drop Engineer Relationship Specialty Start Date End Date Floyd Guardado MD [address] [facility] 105 [place], [place] [address] PCP - General Family Medicine 02/14/22 Jesse Montes DO [address] [facility] [address] [place] [address] Radiation Oncology 06/23/23 Rosa Vera [address] [place] [address] Hematology/Oncology 06/23/23 Janay Shields RN Specialty Senior Business Architect Oncology 07/10/23 Hardik Wilkerson DO [address] [place] [address] Physician Hematology/Oncology 07/10/23 Alexus Palacios MD [address] [place] [address] Physician Hematology 02/11/24 Izabela Yin, RN Specialty Senior Business Architect Hematology/Oncology 02/11/24 Scrap Drop Engineer Relationship Specialty Start Date End Date Floyd Guardado MD [address] [place] [address] PCP - General Family Medicine 02/14/22 Jesse Montes DO [address] [facility] [address] [place] [address] Radiation Oncology 06/23/23 Rosa Vera [address] [place] [address] Hematology/Oncology 06/23/23 Janay Shields RN Specialty Senior Business Architect Oncology 07/10/23 Hardik Wilkerson DO [address] [place] [address] Physician Hematology/Oncology 07/10/23 Alexus Palacios MD [address] [place] [address] Physician Hematology 02/11/24 Izabela Yin, RN Specialty Senior Business Architect Hematology/Oncology 02/11/24 Scrap Drop Engineer Relationship Specialty Start Date End Date Floyd Guardado MD [address] [place] [address] PCP - General Family Medicine 02/14/22 Jesse Montes DO [address] [facility] [address] [place] [address] Radiation Oncology 06/23/23 [facility] [address] [place] [address] Hematology/Oncology 06/23/23 Janay Shields RN Specialty Senior Business Architect Oncology 07/10/23 Hardik Wilkerson DO [address] [place] [address] Physician Hematology/Oncology 07/10/23 Alexus Palacios MD [address] [place] [address] Physician Hematology 02/11/24 Izabela Yin RN Specialty Senior Business Architect Hematology/Oncology 02/11/24 Scrap Drop Engineer Relationship Specialty Start Date End Date Floyd Guardado MD [address] [facility] [address] [place] [address] PCP - General Family Medicine 02/14/22 Jesse Montes DO [address] [facility] [address] [place] [address] Radiation Oncology 06/23/23 Rosa Vera [address] [place] [address] Hematology/Oncology 06/23/23 Janay Shields RN Specialty Senior Business Architect Oncology 07/10/23 Hardik Wilkerson DO [address] [place] [address] Physician Hematology/Oncology 07/10/23 Alexus Palacios MD [address] [place] [address] Physician Hematology 02/11/24 Izabela Yin, RN Specialty Senior Business Architect Hematology/Oncology 02/11/24 Scrap Drop Engineer Relationship Specialty Start Date End Date Floyd Guardado MD [address] [place] [address] PCP - General Family Medicine 02/14/22 Jesse Montes DO [address] [facility] [address] [place] [address] Radiation Oncology 06/23/23 Rosa Vera [address] [place] [address] Hematology/Oncology 06/23/23 Janay Shields RN Specialty Senior Business Architect Oncology 07/10/23 Hardik Wilkerson DO [address] [place] [address] Physician Hematology/Oncology 07/10/23 Alexus Palacios MD [address] [place] [address] Physician Hematology 02/11/24 Izabela Yin, RN Specialty Senior Business Architect Hematology/Oncology 02/11/24 Scrap Drop Engineer Relationship Specialty Start Date End Date Floyd Guardado MD [address] [place] [address] PCP - General Family Medicine 02/14/22 Jesse Montes DO [address] [facility] [address] [place] [address] Radiation Oncology 06/23/23 CocoRosa lyons [address] [place] [address] Hematology/Oncology 06/23/23 Janay Shields RN Specialty Senior Business Architect Oncology 07/10/23 Hardik Wilkerson DO [address] [place] [address] Physician Hematology/Oncology 07/10/23 Alexus Palacios MD [address] [place] [address] Physician Hematology 02/11/24 Izabela Yin RN Specialty Senior Business Architect Hematology/Oncology 02/11/24 Scrap Drop Engineer Relationship Specialty Start Date End Date Floyd Guardado MD [address] [facility] [address] [place] [address] PCP - General Family Medicine 02/14/22 Jesse Montes DO [address] [facility] 1 [place] [address] Radiation Oncology 06/23/23 ToniRosa walsh [address] [place] [address] Hematology/Oncology 06/23/23 Janay Shields RN Specialty Senior Business Architect Oncology 07/10/23 Hardik Wilkerson DO [address] [address] Physician Hematology/Oncology 07/10/23 Alexus Palacios MD [address] [place] [address] Physician Hematology 02/11/24 Izabela Yin, RN Specialty Senior Business Architect Hematology/Oncology 02/11/24 Scrap Drop Engineer Relationship Specialty Start Date End Date Floyd Guardado MD [address] [place] [address] PCP - General Family Medicine 02/14/22 Jesse Montes DO [address] [facility] [address] [place] [address] Radiation Oncology 06/23/23 Rosa Vera [address] [place] [address] Hematology/Oncology 06/23/23 Janay Shields RN Specialty Senior Business Architect Oncology 07/10/23 Hardik Wilkerson DO [address] [place] [address] Physician Hematology/Oncology 07/10/23 Alexus Palacios MD [address] [place] [address] Physician Hematology 02/11/24 Izabela Yin, RN Specialty Senior Business Architect Hematology/Oncology 02/11/24 Scrap Drop Engineer Relationship Specialty Start Date End Date Floyd Guardado MD [address] [place] [address] PCP - General Family Medicine 02/14/22 Jesse Montes DO [address] [facility] [address] [place] [address] Radiation Oncology 06/23/23 CocoRosa lyons [address] [place] [address] Hematology/Oncology 06/23/23 Janay Shields RN Specialty Senior Business Architect Oncology 07/10/23 Hardik Wilkerson DO [address] [place] [address] Physician Hematology/Oncology 07/10/23 Alexus Palacios MD [address] [place] [address] Physician Hematology 02/11/24 Izabela Yin RN Specialty Senior Business Architect Hematology/Oncology 02/11/24 Scrap Drop Engineer Relationship Specialty Start Date End Date Floyd Guardado MD [address] [facility] [address] [place] [address] PCP - General Family Medicine 02/14/22 Jesse Montes DO [address] [facility] 1 [place] [address] Radiation Oncology 06/23/23 ToniRosa walsh [address] [place] [address] Hematology/Oncology 06/23/23 Janay Shields, WHITNEY Specialty Senior Business Architect Oncology 07/10/23 Hardik Wilkerson DO [address] [place] [address] Physician Hematology/Oncology 07/10/23 Alexus Palacios MD [address] [place] [address] Physician Hematology 02/11/24 Izabela Yin, RN Specialty Senior Business Architect Hematology/Oncology 02/11/24 Scrap Drop Engineer Relationship Specialty Start Date End Date Floyd Guardado MD [address] [place] [address] PCP - General Family Medicine 02/14/22 Jesse Montes DO [address] [facility] [address] [place] [address] Radiation Oncology 06/23/23 Rosa Vera [address] [place] [address] Hematology/Oncology 06/23/23 Janay Shields RN Specialty Senior Business Architect Oncology 07/10/23 Hardik Wilkerson DO [address] [place] [address] Physician Hematology/Oncology 07/10/23 Alexus Palacios MD [address] [place] [address] Physician Hematology 02/11/24 Izabela Yin RN Specialty Senior Business Architect Hematology/Oncology 02/11/24 Scrap Drop Engineer Relationship Specialty Start Date End Date Floyd Guardado MD [address] [place] [address] PCP - General Family Medicine 02/14/22 Jesse Montes DO [address] [facility] [address] [place] [address] Radiation Oncology 06/23/23 ToniRosa walsh [address] [place] [address] Hematology/Oncology 06/23/23 Janay Shields RN Specialty Senior Business Architect Oncology 07/10/23 Hardik Wilkerson DO [address] [place] [address] Physician Hematology/Oncology 07/10/23 Alexus Palacios MD [address] [place] [address] Physician Hematology 02/11/24 Izabela Yin RN Specialty Senior Business Architect Hematology/Oncology 02/11/24 Scrap Drop Engineer Relationship Specialty Start Date End Date Floyd Guardado MD [address] [place] [address] PCP - General Family Medicine 02/14/22 Jesse Montes DO [address] [facility] [address] [place] [address] Radiation Oncology 06/23/23 ToniRosa walsh [address] [place] [address] Hematology/Oncology 06/23/23 Janay Shields, WHITNEY Specialty Senior Business Architect Oncology 07/10/23 Hardik Wilkerson DO [address] [place] [address] Physician Hematology/Oncology 07/10/23 Alexus Palacios MD [address] [place] [address] Physician Hematology 02/11/24 Izabela Yin, RN Specialty Senior Business Architect Hematology/Oncology 02/11/24 Scrap Drop Engineer Relationship Specialty Start Date End Date Floyd Guardado MD [address] [facility] [address] [place] [address] PCP - General Family Medicine 02/14/22 Jesse Montes DO [address] [facility] [address] [place] [address] Radiation Oncology 06/23/23 Rosa Vera [address] [place] [address] Hematology/Oncology 06/23/23 Janay Shields RN Specialty Senior Business Architect Oncology 07/10/23 Hardik Wilkerson DO [address] [place] [address] Physician Hematology/Oncology 07/10/23 Alexus Palacios MD [address] [place] [address] Physician Hematology 02/11/24 Izabela Yin, RN Specialty Senior Business Architect Hematology/Oncology 02/11/24 Scrap Drop Engineer Relationship Specialty Start Date End Date Floyd Guardado MD [address] [facility] [address] [place] [address] PCP - General Family Medicine 02/14/22 Jesse Montes DO [address] [facility] [address] [place] [address] Radiation Oncology 06/23/23 ToniRosa walsh [address] [place] [address] Hematology/Oncology 06/23/23 Janay Sheilds RN Specialty Senior Business Architect Oncology 07/10/23 Hardik Wilkerson DO [address] [place] [address] Physician Hematology/Oncology 07/10/23 Alexus Palacios MD [address] [place] [address] Physician Hematology 02/11/24 Izabela Yin RN Specialty Senior Business Architect Hematology/Oncology 02/11/24 Scrap Drop Engineer Relationship Specialty Start Date End Date Floyd Guardado MD [address] [place] [address] PCP - General Family Medicine 02/14/22 Jesse Montes DO [address] [facility] [address] [place] [address] Radiation Oncology 06/23/23 ToniRosa walsh [address] [place] [address] Hematology/Oncology 06/23/23 Janay Shields, WHITNEY Specialty Senior Business Architect Oncology 07/10/23 Hardik Wilkerson DO [address] [place] [address] Physician Hematology/Oncology 07/10/23 Alexus Palacios MD [address] [place] [address] Physician Hematology 02/11/24 Izabela Yin, RN Specialty Senior Business Architect Hematology/Oncology 02/11/24 Scrap Drop Engineer Relationship Specialty Start Date End Date Floyd Guardado MD [address] [place] [address] PCP - General Family Medicine 02/14/22 Jesse Montes DO [address] [facility] [address] [place] [address] Radiation Oncology 06/23/23 Rosa Vera [address] [place] [address] Hematology/Oncology 06/23/23 Janay Shields RN Specialty Senior Business Architect Oncology 07/10/23 Hardik Wilkerson DO [address] [place] [address] Physician Hematology/Oncology 07/10/23 Alexus Palacios MD [address] [facility] [address] [place], [place] [address] Physician Hematology 02/11/24 Izabela Yin, RN Specialty Senior Business Architect Hematology/Oncology 02/11/24 Scrap Drop Engineer Relationship Specialty Start Date End Date Floyd Guardado MD [address] [facility] 105 [place] [address] PCP - General Family Medicine 02/14/22 Jesse Montes DO [address] [facility] [address] [place] [address] Radiation Oncology 06/23/23 JodyRosa [address] [place] [place] [address] Hematology/Oncology 06/23/23 Janay Shields RN Specialty Senior Business Architect Oncology 07/10/23 Hardik Wilkerson DO [address] [place] [address] Physician Hematology/Oncology 07/10/23 Alexus Palacios MD [address] [place] [address] Physician Hematology 02/11/24 Izabela Yin RN Specialty Senior Business Architect Hematology/Oncology 02/11/24 Scrap Drop Engineer Relationship Specialty Start Date End Date Floyd Guardado MD [address] [facility] 105 [place] [address] PCP - General Family Medicine 02/14/22 Jesse Montes DO [address] [facility] [address] 1 [place] [address] Radiation Oncology 06/23/23 JodyRosa [address] [place] [address] Hematology/Oncology 06/23/23 Janay Shields, WHITNEY Specialty Senior Business Architect Oncology 07/10/23 Hardik Wilkerson DO [address] [place] [address] Physician Hematology/Oncology 07/10/23 Alexus Palacios MD [address] [place], [place] [address] Physician Hematology 02/11/24 Izabela Yin, RN Specialty Senior Business Architect Hematology/Oncology 02/11/24 Scrap Drop Engineer Relationship Specialty Start Date End Date Floyd Guardado MD [address] [place], [place] [address] PCP - General Family Medicine 02/14/22 Jesse Montes DO [address] [facility] [address] [place] [address] Radiation Oncology 06/23/23 Rosa Vera [address] [place] [address] Hematology/Oncology 06/23/23 Janay Shields RN Specialty Senior Business Architect Oncology 07/10/23 Hardik Wilkerson DO [address] [place] [address] Physician Hematology/Oncology 07/10/23 Alexus Palacios MD [address] [facility] [address] Physician Hematology 02/11/24 Izabela Yin, RN Specialty Senior Business Architect Hematology/Oncology 02/11/24 Scrap Drop Engineer Relationship Specialty Start Date End Date Floyd Guardado MD [address] [facility] [address] [place], [place] [address] PCP - General Family Medicine 02/14/22 Jesse Montes DO [address] [facility] [address] [place] [address] Radiation Oncology 06/23/23 JodyRosa [address] [place] [address] Hematology/Oncology 06/23/23 Janay Shields RN Specialty Senior Business Architect Oncology 07/10/23 Hardik Wilkerson DO [address] [place] [address] Physician Hematology/Oncology 07/10/23 Alexus Palacios MD [address] [place] [address] Physician Hematology 02/11/24 Izabela Yin RN Specialty Senior Business Architect Hematology/Oncology 02/11/24 Scrap Drop Engineer Relationship Specialty Start Date End Date Floyd Guardado MD [address] [facility] 105 [place] [address] PCP - General Family Medicine 02/14/22 Jesse Montes DO [address] [facility] 1 [place] [address] Radiation Oncology 06/23/23 JodyRosa [address] [place] [address] Hematology/Oncology 06/23/23 Janay Shields, WHITNEY Specialty Senior Business Architect Oncology 07/10/23 Hardik Wilkerson DO [address] [place] [address] Physician Hematology/Oncology 07/10/23 Alexus Palacios MD [address] [place], [place] [address] Physician Hematology 02/11/24 Izabela Yin, RN Specialty Senior Business Architect Hematology/Oncology 02/11/24 Scrap Drop Engineer Relationship Specialty Start Date End Date Floyd Guardado MD [address] [place], [place] [address] PCP - General Family Medicine 02/14/22 Jesse Montes DO [address] [facility] [address] [place] [address] Radiation Oncology 06/23/23 Rosa Vera [address] [place] [address] Hematology/Oncology 06/23/23 Janay Shields RN Specialty Senior Business Architect Oncology 07/10/23 Hardik Wilkerson DO [address] [place] [address] Physician Hematology/Oncology 07/10/23 Alexus Palacios MD [address] [place], [place] [address] Physician Hematology 02/11/24 Izabela Yin, RN Specialty Senior Business Architect Hematology/Oncology 02/11/24 Scrap Drop Engineer Relationship Specialty Start Date End Date Floyd Guardado MD [address] [facility] [address] [place], [place] [address] PCP - General Family Medicine 02/14/22 Jesse Montes DO [address] [facility] [address] [place] [address] Radiation Oncology 06/23/23 JodyRosa [address] [place], [place] [address] [phone] Hematology/Oncology 06/23/23 Janay Shields RN Specialty Senior Business Architect Oncology 07/10/23 Hardik Wilkerson DO [address] [facility] [place] [address] Physician Hematology/Oncology 07/10/23 Alexus Palacios MD [address] [place] [address] Physician Hematology 02/11/24 Izabela Yin RN Specialty Senior Business Architect Hematology/Oncology 02/11/24 Scrap Drop Engineer Relationship Specialty Start Date End Date Floyd Guardado MD [address] [facility] 105 [place] [address] PCP - General Family Medicine 02/14/22 Jesse Montes DO [address] [facility] 1 [place] [address] Radiation Oncology 06/23/23 Jody Rosa [address] [place] [address] Hematology/Oncology 06/23/23 Janay Shields, RN Specialty Senior Business Architect Oncology 07/10/23 Hardik Wilkerson DO [address] [place] [address] Physician Hematology/Oncology 07/10/23 Alexus Palacios MD [address] [place] [address] Physician Hematology 02/11/24 Izabela Yin, RN Specialty Senior Business Architect Hematology/Oncology 02/11/24 Scrap Drop Engineer Relationship Specialty Start Date End Date Floyd Greer MD [address] [place], [place] [address] PCP - General 06/06/03 02/13/22 Scrap Drop Engineer Relationship Specialty Start Date End Date Floyd Guardado MD [address] [facility] 105 [place], [place] [address] PCP - General Family Medicine 02/14/22 Jesse Montes DO [address] [facility] [address] [place] [address] Radiation Oncology 06/23/23 Rosa Vera [address] [place], [place] [address] Hematology/Oncology 06/23/23 Janay Shields RN Specialty Senior Business Architect Oncology 07/10/23 Hardik Wilkerson DO [address] [place], [place] [address] Physician Hematology/Oncology 07/10/23 Alexus Palacios MD [address] [place] [address] Physician Hematology 02/11/24 Izabela Yin, RN Specialty Senior Business Architect Hematology/Oncology 02/11/24 Scrap Drop Engineer Relationship Specialty Start Date End Date Floyd Guardado MD [address] [facility] [address] [place], [place] [address] PCP - General Family Medicine 02/14/22 Jesse Montes DO [address] [facility] [address] [place] [address] Radiation Oncology 06/23/23 Rosa Vera [address] [place] [address] Hematology/Oncology 06/23/23 Janay Shields RN Specialty Senior Business Architect Oncology 07/10/23 Hardik Wilkerson DO [address] [place] [address] Physician Hematology/Oncology 07/10/23 Alexus Palacios MD [address] [place] [address] Physician Hematology 02/11/24 Izabela Yin RN Specialty Senior Business Architect Hematology/Oncology 02/11/24 Scrap Drop Engineer Relationship Specialty Start Date End Date Floyd Guardado MD [address] [facility] 105 [place], [place] [address] PCP - General Family Medicine 02/14/22 Jesse Montes DO [address] [facility] [address] [place] [address] Radiation Oncology 06/23/23 Rosa Vera [address] [place] [address] Hematology/Oncology 06/23/23 Janay Shields RN Specialty Senior Business Architect Oncology 07/10/23 Hardik Wilkerson DO [address] [place] [address] Physician Hematology/Oncology 07/10/23 Alexus Palacios MD [address] [facility] [place] [address] Physician Hematology 02/11/24 Izabela Yin, RN Specialty Senior Business Architect Hematology/Oncology 02/11/24 Scrap Drop Engineer Relationship Specialty Start Date End Date Floyd Guardado MD [address] [facility] 105 [place] [address] PCP - General Family Medicine 02/14/22 Jesse Montes DO [address] [facility] [address] [place] [address] Radiation Oncology 06/23/23 Rosa Vera [address] [place] [address] Hematology/Oncology 06/23/23 Janay Shields RN Specialty Senior Business Architect Oncology 07/10/23 Hardik Wilkerson DO [address] [place] [address] Physician Hematology/Oncology 07/10/23 Alexus Palacios MD [address] [place], [place] [address] Physician Hematology 02/11/24 Izabela Yin, RN Specialty Senior Business Architect Hematology/Oncology 02/11/24 Scrap Drop Engineer Relationship Specialty Start Date End Date Floyd Guardado MD [address] [facility] [address] [place] [address] PCP - General Family Medicine 02/14/22 Jesse Montes DO [address] [facility] [address] [place] [address] Radiation Oncology 06/23/23 Rosa Vera [address] [place] [address] Hematology/Oncology 06/23/23 Janay Shields RN Specialty Senior Business Architect Oncology 07/10/23 Hardik Wilkerson DO [address] [place] [address] Physician Hematology/Oncology 07/10/23 Alexus Palacios MD [address] [place] [address] Physician Hematology 02/11/24 Izabela Yin RN Specialty Senior Business Architect Hematology/Oncology 02/11/24 Scrap Drop Engineer Relationship Specialty Start Date End Date Floyd Guardado MD [address] [facility] [address] [place], [place] [address] PCP - General Family Medicine 02/14/22 Jesse Montes DO [address] [facility] [address] [place] [address] Radiation Oncology 06/23/23 Rosa Vera [address] [place] [place] [address] Hematology/Oncology 06/23/23 Janay Shields RN Specialty Senior Business Architect Oncology 07/10/23 Hardik Wilkerson DO [address] [place] [address] Physician Hematology/Oncology 07/10/23 Alexus Palacios MD [address] [place] [address] Physician Hematology 02/11/24 Izabela Yin RN Specialty Senior Business Architect Hematology/Oncology 02/11/24 Team Status: Inactive Member Role Status Dates Dr. Floyd Guardado MD Primary Care Provider Active Start: November 11, 2024 End: November 11, 2024 Dr. Mahad Lim DO Attending Provider Active Start : November 11, 2024 End: November 11, 2024 Dr. Mahad Lim DO Emergency Provider Active Start : November 11, 2024 End: November 11, 2024 Team Status: Inactive Member Role Status Dates Dr. Floyd Guardado MD Primary Care Provider Active Start: December 02, 2024 End: December 02, 2024 Dr. Floyd Guardado MD Attending Provider Active Start: December 02, 2024 End: December 02, 2024 Dr. Floyd Guardado MD Referring Provider Active Start: December 02, 2024 End: December 02, 2024 Team Status: Active Member Role Status Dates Dr. Teja Payton MD Attending Provider Active Start: December 02, 2024 Dr. Floyd Guardado MD Referring Provider Active Start: December 02, 2024 Team Status: Inactive Member Role Status Dates Dr. Floyd Guardado MD Primary Care Provider Active Start: December 20, 2024 End: December 20, 2024 Kristi Nguyễn GASKET FORMER, GASKET FORMER-C Attending Provider Active Start: December 20, 2024 End: December 20, 2024 Kristi Nguyễn GASKET FORMER, GASKET FORMER-C Referring Provider Active Start: December 20, 2024 End: December 20, 2024 Team Status: Inactive Member Role Status Dates Dr. Floyd Guardado MD Primary Care Provider Active Start: January 06, 2025 End: January 06, 2025 Dr. Caleb Carballo DPM Attending Provider Active Start: January 06, 2025 End: January 06, 2025 Team Status: Inactive Member Role Status Dates Dr. Floyd Guardado MD Primary Care Provider Active Start: January 14, 2025 End: January 14, 2025 Dr. Floyd Guardado MD Attending Provider Active Start: January 14, 2025 End: January 14, 2025 Dr. Floyd Guardado MD Referring Provider Active Start: January 14, 2025 End: January 14, 2025 Scrap Drop Engineer Relationship Specialty Start Date End Date Floyd Guardado MD [address] [facility] 105 [place] [address] PCP - General Family Medicine 02/14/22 Jesse Montes DO [address] [facility] 1 [place] [address] Radiation Oncology 06/23/23 Rosa Vera [address] [place] [address] Hematology/Oncology 06/23/23 Janay Shields RN Specialty Senior Business Architect Oncology 07/10/23 Hardik Wilkerson DO [address] [place] [address] Physician Hematology/Oncology 07/10/23 Alexus Palacios MD [address] [place] [address] Physician Hematology 02/11/24 Izabela Yin RN Specialty Senior Business Architect Hematology/Oncology 02/11/24 Goals (unrecognized section and content) Goals may be documented in a n alternate sectionGoals may be documented in an alternate sectionGoals may be documented in an alternate sectionGoals may be documented in an alternate sectionGoals may be documented in an alternate sectionGoals may be documented in an alternate sectionGoals may be documented in an alternate sectionGoals may be documented in an alternate sectionGoals may be documented in an alternate sectionGoals may be documented in an alternate sectionGoals may be documented in an alternate sectionGoals may be documented in an alternate sectionGoals may be documented in an alternate sectionGoals may be documented in an alternate sectionGoals may be documented in an alternate sectionGoals may be documented in an alternate sectionGoals may be documented in an alternate sectionGoals may be documented in an alternate sectionGoals may be documented in an alternate sectionGoals may be documented in an alternate sectionGoals may be documented in an alternate sectionGoals may be documented in an alternate sectionGoals may be documented in an alternate sectionGoals may be documented in an alternate sectionGoals may be documented in an alternate sectionGoals may be documented in an alternate sectionGoals may be documented in an alternate section (unrecognized sect ion and content) No Status Records FoundNo Status Records FoundNo Status Records FoundNo Status Records FoundNo Status Records Found INFORMATION SOURCE (unrecogn ized section and content) DATE CREATED AUTHOR 09/04/2023 [facility] DATE CREATED AUTHOR AUTHOR'S ORGANIZ ATION 09/18/2023 [facility] DATE CREATED AUTHOR AUTHOR'S ORGANIZ ATION 12/16/[address] [facility] DATE CREATED AUTHOR AUTHOR'S ORGANIZ ATION 03/05/2025 [facility] DATE CREATED AUTHOR AUTHOR'S ORGANIZ ATION 04/14/2025 [facility] PRN Active and Recently Administ ered Medications (unrecognized section and content) Medication Order 01/25/2024 01/26/2024 01/27/2024 fentaNYL 50 mcg/mL injection (SUBLIMAZE) (CANCELED) INTRAVENOUS, X (OR/PROCEDURE) PRN, Starting on Fri01/27/24 at 1439, Until Fri01/27/24 at 1516, Intraprocedure 1439 (Given - Provid er: June Mathews RN) lidocaine (PF) 20 mg/mL (2 %) injection (XYLOCAINE) (CANCELED) SUBCUTANEOUS, X (OR/PROCEDURE) PRN, Starting on Fri01/27/24 at 1442, Until Fri01/27/24 at 1516, Intraprocedure 1442 (Given - Provid er: Zahra Valencia MD) midazolam (PF) injection (VERSED) (CANCELED) INTRAVENOUS, X (OR/PROCEDURE) PRN, Starting on Fri01/27/24 at 1439, Until Fri01/27/24 at 1516, Intraprocedure 1439 (Given - Provid er: June Mathews RN) FOR RECORDS PERTAINING TO PATIENTS WHO ARE OR HAVE BEEN ENROLLED IN A CHEMICAL DEPENDENCY/SUBSTANCEABUSE PROGRAM, SOME INFORMATION MAY BE OMITTED. This clinical summary was aggregated from multiple sources. Caution should be exercised in using it in the provision of clinical care. This summary normalizes information from multiple sources, and as a consequence, information in this document may materially change the coding, format and clinical context of patient data. In addition, data may be omitted in some cases. CLINICAL DECISIONS SHOULD BE BASED ON THE PRIMARY CLINICAL RECORDS. [facility] [facility] provides no warranty or guarantee of the accuracy or completeness of information in this document.
[2025-05-06 20:39] LABS: Absolute Lymphocyte Count 0.78 X10^3/uL (0.83-4.51); Absolute Neutrophil Count 4.5 X10^3/uL (2.0-7.7); Basophil# 0.04 X10^3/uL; Basophil% 0.6 % (0-1); Eosinophil# 0.22 X10^3/uL; Eosinophils% 3.5 % (0-5); Hematocrit 44.5 % (40-54); Hemoglobin 15.6 g/dL (13.0-16.5); Lymphocyte # 0.78 X10^3/ul (0.83-4.51); Lymphocyte % 12.5 % (19-41); Mean Corp Hgb Conc 35.1 g/dL (32-36); Mean Corpuscular Hgb 30.3 pg (27.0-32.0); Mean Corpuscular Volume 86.4 fL (80-94); Mean Platelet Vol. 8.6 fl (6.2-12.0); Monocyte# 0.62 X10^3/uL; NRBC Flagged by Analyzer 0 % (0-5); Neutrophil # 4.54 X10^3/uL (2.7-7.7); Neutrophil % 72.9 % (47-70); Platelet Count 196 K/mm3 (150-450); RBC Distribution Width CV 13.4 % (11.6-14.6); RBC Distribution Width SD 41.9 fl (35.1-43.9); Red Blood Count 5.15 M/mm3 (4.6-6.2); White Blood Count 6.2 K/mm3 (4.4-11.0)
[2025-05-06 21:03] LABS: Anion Gap 15 (5-15); BUN 41 mg/dL (4-19); BUN/Creat Ratio 13.4 RATIO (10-20); Calcium,Total 9.5 mg/dL (7.6-11.0); Chloride 103 mmol/L (98-108); Creatinine, Serum 3.02 mg/dL (0.70-1.20); EST Glomerular Filtration Rate 27 (>60); Estimated Creatinine Clearance 49.45 ml/min (50-250); Glucose 117 mg/dL (70-99); Potassium 3.7 mmol/L (3.3-5.1); Sodium Level 138 mmol/L (133-145)
[2025-05-06 21:41] VITALS: BP 145/79; PULSE 85; RESP 19; O2SAT 98
[2025-05-06 22:24] VITALS: BP 145/79; PULSE 85; RESP 19; TEMP 36.8; O2SAT 98
== END 2025-05-06 22:25 | disposition home or self-care (01) ==
PROVIDERS: Emergency Provider Emergency Medicine; PCP Family Medicine; Referring Provider Emergency Medicine; Visit Provider Emergency Medicine
DX: I89.0 Lymphedema, not elsewhere classified (principal); E11.622 Type 2 diabetes mellitus with other skin ulcer; L97.911 Non-pressure chronic ulcer of unspecified part of right lower leg limited to breakdown of skin; L97.921 Non-pressure chronic ulcer of unspecified part of left lower leg limited to breakdown of skin; C62.91 Malignant neoplasm of right testis, unspecified whether descended or undescended; E11.22 Type 2 diabetes mellitus with diabetic chronic kidney disease; N18.30 Chronic kidney disease, stage 3 unspecified; Z79.85 Long-term (current) use of injectable non-insulin antidiabetic drugs; Z79.899 Other long term (current) drug therapy
CPT/HCPCS: 80048; 85025; 99283

== ENCOUNTER → 2025-05-09 | Outpatient (CLI) | payer MEDICARE, MEDICAID, SELFPAY ==
[2025-05-09 12:23] LABS: Urine Potassium 23.6 mmol/L (Not Establ.)
== END | disposition home or self-care (01) ==
LOC: LAB 10:12
PROVIDERS: PCP Family Medicine; Referring Provider Internal Medicine Nephrology; Visit Provider Internal Medicine Nephrology
DX: N18.32 Chronic kidney disease, stage 3b (principal)
CPT/HCPCS: 82570; 84133

== ENCOUNTER → 2025-05-17 | Outpatient (CLI) | payer MEDICARE, MEDICAID, SELFPAY ==
[2025-05-17 18:18] LABS: AST(SGOT) 29 U/L (<=37); Alanine Aminotransfer ALT/SGPT 28 U/L (<=46); Albumin, Serum 4.5 g/dL (3.5-5.0); Alkaline Phosphatase 218 U/L (40-129); Anion Gap 18 (5-15); BUN 45 mg/dL (4-19); BUN/Creat Ratio 15.0 RATIO (10-20); Calcium,Total 10.5 mg/dL (7.6-11.0); Carbon Dioxide 23.0 mmol/L (21.0-32.0); Chloride 98 mmol/L (98-108); Cholesterol 179 mg/dL (<=200); Globulin 3.7 g/dL (2.2-4.2); Glucose 140 mg/dL (70-99); Low Density Lipoprotein Calc. 75 mg/dL; Potassium 3.5 mmol/L (3.3-5.1); Triglycerides 316 mg/dL; Very Low Density Lipoprotein 63 mg/dL (5-40); cholesterol:hdl ratio screen 4.39
[2025-05-17 18:24] LABS: Creatinine, Urine (random) 29.20 mg/dL (39.00-259.00)
[2025-05-17 18:27] LABS: Hematocrit 48.8 % (40-54); Hemoglobin 17.0 g/dL (13.0-16.5); Immature Granulocytes Count 0.020 X10^3/uL (0.0-0.0); Mean Corp Hgb Conc 34.8 g/dL (32-36); Mean Corpuscular Volume 86.2 fL (80-94); Mean Platelet Vol. 9.0 fl (6.2-12.0); NRBC Flagged by Analyzer 0 % (0-5); Platelet Count 240 K/mm3 (150-450); RBC Distribution Width CV 13.2 % (11.6-14.6); RBC Distribution Width SD 41.1 fl (35.1-43.9); Red Blood Count 5.66 M/mm3 (4.6-6.2); White Blood Count 5.8 K/mm3 (4.4-11.0)
[2025-05-17 18:36] LABS: Microalbumin,Random Urine 1944.0 mg/L (NO RANGE EST.)
[2025-05-20 04:07] LABS: GGTP 56 IU/L (0-65)
== END | disposition home or self-care (01) ==
LOC: MFPLAB 16:16
PROVIDERS: PCP Family Medicine; Referring Provider Family Medicine; Visit Provider Family Medicine
DX: E11.8 Type 2 diabetes mellitus with unspecified complications (principal); R74.8 Abnormal levels of other serum enzymes
CPT/HCPCS: 36415; 80053; 80061; 82043; 82570; 82977; 83036; 85025

== ENCOUNTER → 2025-05-24 | Outpatient (CLI) | payer MEDICARE, MEDICAID, SELFPAY ==
[2025-05-24 10:47] LABS: Alkaline Phosphatase 190 U/L (40-129)
[2025-05-28 04:07] LABS: GGTP 58 IU/L (0-65)
== END | disposition home or self-care (01) ==
LOC: LABSPEC 09:09
PROVIDERS: PCP Family Medicine; Referring Provider Family Medicine; Visit Provider Family Medicine
DX: R74.8 Abnormal levels of other serum enzymes (principal)
CPT/HCPCS: 82977; 84075

== ENCOUNTER → 2025-05-31 | Outpatient (CLI) | payer MEDICARE, MEDICAID, SELFPAY ==
[2025-05-31 15:29] LABS: Mucous, Urine 0 SEEN /hpf (<or=2+); Red Blood Cells-Urine 0 SEEN /hpf (0-5); Squamous Epithelial Cells - UA 0 SEEN /hpf (0-5)
[2025-05-31 16:06] LABS: Color, Urine Yellow (Yellow); Glucose, Dipstick 1000 mg/dl (Normal); Ketone-Dipstick Negative (Negative); Leukocyte Esterase-Dipstick Negative /ul (Negative); Nitrite-Dipstick Negative (Negative); Occult Blood-Urine Negative /ul (Negative); Protein-Dipstick 100 mg/dl (Negative); Specific Gravity, Urine 1.010 (1.002-1.030); Urine Bilirubin Dipstick Negative (Negative)
[2025-05-31 16:40] LABS: AST(SGOT) 34 U/L (<=37); Alanine Aminotransfer ALT/SGPT 26 U/L (<=46); Albumin, Serum 4.3 g/dL (3.5-5.0); Alkaline Phosphatase 197 U/L (40-129); Anion Gap 17 (5-15); BUN 51 mg/dL (4-19); BUN/Creat Ratio 13.9 RATIO (10-20); Calcium,Total 10.4 mg/dL (7.6-11.0); Carbon Dioxide 23.0 mmol/L (21.0-32.0); Chloride 101 mmol/L (98-108); Globulin 3.3 g/dL (2.2-4.2); Glucose 125 mg/dL (70-99); Potassium 3.8 mmol/L (3.3-5.1)
[2025-05-31 16:59] LABS: Vitamin D,25 Hydroxy 31.6 ng/mL (30-100)
[2025-05-31 17:07] LABS: PTHIN 198 pg/mL (11-61)
[2025-05-31 17:48] LABS: Creatinine, Urine (random) 49.40 mg/dL (39.00-259.00); Protein, Urine (Random) 132.0 mg/dL (0.0-12.0); Protein:Creat Ratio 2672 mg/g CRE (0-200)
== END | disposition home or self-care (01) ==
LOC: LAB 15:22
PROVIDERS: PCP Family Medicine; Referring Provider Internal Medicine Nephrology; Visit Provider Internal Medicine Nephrology
DX: N18.32 Chronic kidney disease, stage 3b (principal); R74.8 Abnormal levels of other serum enzymes
CPT/HCPCS: 36415; 80053; 81001; 82306; 82570; 83970; 84100; 84156; 84443

== ENCOUNTER → 2025-06-30 | Outpatient (CLI) | payer MEDICARE, MEDICAID, SELFPAY ==
[2025-06-30 10:44] LABS: Anion Gap 14 (5-15); BUN 53 mg/dL (4-19); BUN/Creat Ratio 14.2 RATIO (10-20); Calcium,Total 9.8 mg/dL (7.6-11.0); Carbon Dioxide 23.3 mmol/L (21.0-32.0); Chloride 102 mmol/L (98-108); Glucose 159 mg/dL (70-99); Potassium 4.2 mmol/L (3.3-5.1)
== END | disposition home or self-care (01) ==
LOC: LABSPEC 08:52
PROVIDERS: PCP Family Medicine; Referring Provider Internal Medicine Nephrology; Visit Provider Internal Medicine Nephrology
DX: N18.32 Chronic kidney disease, stage 3b (principal); R80.9 Proteinuria, unspecified
CPT/HCPCS: 80048